=== PATIENT | male | born 1950 | race Caucasian/White ===

== ENCOUNTER 2016-10-04 09:14 | Emergency (ER) | payer OTHER ==
[~2016-10-04] VITALS: Ht 175.3 cm; Wt 96.0 kg
[~2016-10-04 09:14] MED LIST: ALBU1AER9 INH; ALBU1NEB10 INH; ASPI81TA21 PO; ATOR-26 PO; BUDE180I INH; CARV12.5 PO; CYCL10TA6 PO; GLIP10TA10 PO; HYDR5TAB27 PO; INSU1INJ7 SC; INSUMIS14; ISOS30TA3 PO; LEVO-366 PO; LORA-741 PO; LOSA1TAB38 PO; METF1000 PO; NIFE1TAB55 PO; NITR0.4S UT; PANT1TAB48 PO; SERT-234 PO; TRIA0.1C20 TOP
[2016-10-04 09:20] VITALS: TEMP 36.4; O2SAT 94; Ht 175.3 cm; Wt 96.0 kg
[2016-10-04] MEDS ORDERED: ALBINS/ INH (09:43)
[2016-10-04] MEDS ORDERED: VNTHFA/IN INH (09:43)
[2016-10-04] MEDS ORDERED: INSDGI SC (09:43)
[2016-10-04] MEDS ORDERED: SODIUM CHLORIDE 0.9% 1000ML 1,000 ML IV ONE (09:45)
--- NOTE | 2016-10-04 09:47 | EMERGENCY ROOM VISIT NOTE ---
History First contact with patient: 09:28 Chief Complaint: SYNCOPE Stated Complaint: SYNCOPE Nursing Triage Summary: Pt presents to room A02 via ALS. Pt color pale upon arrival. Pt was at a garage getting his oil changed when he began to feel dizzy and "not right." pt reports he then sat on a step. Per reports pt then had a syncopal episode and hit his head - lac noted to right head. right knee displays abrasion. Pt reported he thought maybe his blood sugar was low - pt recieved juice at garage and pre hospital bsg 159. medic reports inital bp was 83/56. Pt alert and oriented x 4 able to follow all commands upon arrival. pt reports he had his blood pressure medication adjusted approx 2 weeks ago "because my blood pressure was high and my feet were swollen." History of Present Illness The patient is a 66 year old male with history of type 2 diabetes, previous intracranial aneurysm status post repair, coronary artery disease with 3 stents who presents to the Emergency Room with complaints of syncopal event. He reports earlier today he was at a garage as his 's car's oil was getting changed. He was standing for a while, felt light headed, then sat on a stool, then and passed out and fell and hit his head on the right side. He does not remember any further events since then. EMS was called by the car garage. He thought his blood sugar might be low but his blood sugar was found to be 153. He reported feeling dizzy, that the room was spinning. His blood pressure was found to be 83/56. He reports in last 2 weeks his blood pressure medications had been changed he was unsure to what it was and what it was before now, because his blood pressure was elevated and his legs were swollen. (On review, as below, his medication was changed from furosemide 20 mg every 14 days, to a regime of Imdur 15 mg and Hydrochlorothiazide 25 mg.) Review of Systems See HPI for pertinent positives & negatives. A total of 10 systems reviewed and were otherwise negative. Past Medical/Surgical History Medical Problems: (1) Acute myocardial infarction (2) Benign hypertension (3) BPH (benign prostatic hypertrophy) (4) CAD (coronary artery disease) (5) COPD (chronic obstructive pulmonary disease) (6) Coronary artery disease, occlusive (7) DM type 2 (diabetes mellitus, type 2) (8) Dyslipidemia (9) GERD (gastroesophageal reflux disease) (10) H/O subarachnoid hemorrhage (11) History of Schatzki's ring (12) Lumbago (13) Mood disorder (14) Sensorineural hearing loss of both ears (15) Tobacco use disorder (16) Tobacco user Surgical Problems: (1) H/O inguinal hernia repair (2) History of carpal tunnel surgery (3) S p EGD (4) S/P cardiac cath (5) S/p laser surgery of eye (6) Stented coronary artery Family History FH: abdominal aortic aneurysm FATHER FH: dementia MOTHER Social History Smoking Status: Never Smoker Alcohol Use: none Marital Status: Housing Status: lives with family Occupation Status: retired Current/Historical Medications Scheduled Aspirin Enteric Coated (Ecotrin Or Generic), 81 MG PO DAILY Atorvastatin (Lipitor), 80 MG PO DAILY Budesonide (Inhalation) (Pulmicort Flexhaler), 1 PUFFS INH BID Carvedilol (Coreg), 12.5 MG PO BID Glipizide (Glipizide), 20 MG PO BID Insulin Glargine (Lantus), 48 UNITS SC HS Isosorbide Mononitrate Ext Rel (Imdur Ext Rel), 15 MG PO DAILY Losartan Potassium (Cozaar), 100 MG PO DAILY Metformin Hcl (Glucophage), 1,000 MG PO BIDM Nifedipine (Nifedipine Er), 60 MG PO DAILY Nitroglycerin (Nitrostat), 0.4 MG UT PRN Pantoprazole (Protonix), 40 MG PO BID Scheduled PRN Albuterol Hfa (Ventolin Hfa), 2-4 PUFFS INH Q4H PRN for SOB/Wheezing Albuterol Sulf (Proventil 0.083% 2.5MG/3ML), 2.5 MG INH Q4H PRN for Shortness of Breath Lorazepam (Ativan), 0.5 MG PO BID PRN for Anxiety/Insomnia Allergies Coded Allergies: Budesonide (Verified Allergy, Intermediate, RASH, 12/20/13) Formoterol (Verified Allergy, Intermediate, RASH, 12/20/13) Penicillins (Verified Allergy, Intermediate, 12/20/13) Simvastatin (Verified Allergy, Intermediate, RASH, 12/20/13) Lisinopril (Verified Allergy, Unknown, ., 12/20/13) Physical Exam Vital Signs Date Time Temp Pulse Resp B/P Pulse Ox O2 Delivery O2 Flow Rate FiO2 10/04/16 11:44 77 18 122/73 96 Room Air 10/04/16 10:30 73 18 127/74 97 Room Air 10/04/16 10:05 74 122/69 85 126/98 83 121/66 10/04/16 09:28 77 18 116/76 97 Room Air 10/04/16 09:21 74 10/04/16 09:20 36.4 75 18 117/75 95 Room Air 10/04/16 09:20 94 Room Air Physical Exam GENERAL: Awake, alert, well appearing, no distress HENT: Normocephalic, atraumatic. TM's normal. Oropharynx unremarkable. EYES: PERRL. Normal conjunctiva. Sclera non-icteric. Fundi normal. EOMI NECK: Supple. No nuchal rigidity. FROM. RESPIRATORY: CTA CARDIAC: RRR. Extremities warm and well perfused. ABDOMEN: Soft, non distended. No tenderness to palpation. No rebound or guarding. No masses. MUSCULOSKELETAL: Unremarkable. EXTREMITIES: No edema. No discoloration. Gross motor strength 5/5 bilaterally. NEURO: Normal sensorium. No sensory or motor deficits noted. Gait normal. Speech normal. Cranial nerves two through 12 intact. No pronator drift. Negative Romberg. Normal rapid alternating movements. SKIN: No rash or jaundice noted. LYMPH: No adenopathy. Medical Decision & Procedures Laboratory Results 10/04/16 09:45 Red Blood Count 4.29, Mean Corpuscular Volume 86.9, Mean Corpuscular Hemoglobin 28.9, Mean Corpuscular Hemoglobin Concent 33.2, Mean Platelet Volume 9.6, Neutrophils (%) (Auto) 63.2, Lymphocytes (%) (Auto) 20.2, Monocytes (%) (Auto) 10.0, Eosinophils (%) (Auto) 5.4, Basophils (%) (Auto) 0.9, Neutrophils # (Auto ) 4.21, Lymphocytes # (Auto) 1.35, Monocytes # (Auto) 0.67, Eosinophils # (Auto ) 0.36, Basophils # (Auto) 0.06 10/04/16 09:45 Test 10/04/16 09:45 10/04/16 11:21 White Blood Count 6.67 K/uL (4.8-10.8) Red Blood Count 4.29 M/uL (4.7-6.1) Hemoglobin 12.4 g/dL (14.0-18.0) Hematocrit 37.3 % (42-52) Mean Corpuscular Volume 86.9 fL (80-100) Mean Corpuscular Hemoglobin 28.9 pg (25-34) Mean Corpuscular Hemoglobin Concent 33.2 g/dl (32-36) Platelet Count 190 K/uL (130-400) Mean Platelet Volume 9.6 fL (7.4-10.4) Neutrophils (%) (Auto) 63.2 % Lymphocytes (%) (Auto) 20.2 % Monocytes (%) (Auto) 10.0 % Eosinophils (%) (Auto) 5.4 % Basophils (%) (Auto) 0.9 % Neutrophils # (Auto) 4.21 K/uL (1.4-6.5) Lymphocytes # (Auto) 1.35 K/uL (1.2-3.4) Monocytes # (Auto) 0.67 K/uL (0.11-0.59) Eosinophils # (Auto) 0.36 K/uL (0-0.5) Basophils # (Auto) 0.06 K/uL (0-0.2) RDW Standard Deviation 44.9 fL (36.4-46.3) RDW Coefficient of Variation 14.2 % (11.5-14.5) Immature Granulocyte % (Auto) 0.3 % Immature Granulocyte # (Auto) 0.02 K/uL (0.00-0.02) Prothrombin Time 11.4 SECONDS (9.0-12.0) Prothromb Time International Ratio 1.1 (0.9-1.1) Activated Partial Thromboplast Time 21.7 SECONDS (21.0-31.0) Partial Thromboplastin Ratio 0.8 Anion Gap 13.0 mmol/L (3-11) Est Creatinine Clear Calc Drug Dose 80.8 ml/min Estimated GFR () 89.2 Estimated GFR (Non- 77.0 BUN/Creatinine Ratio 15.8 (10-20) Calcium Level 8.9 mg/dl (8.5-10.1) Total Bilirubin 0.5 mg/dl (0.2-1) Aspartate Amino Transf (AST/SGOT) 20 U/L (15-37) Alanine Aminotransferase (ALT/SGPT) 34 U/L (12-78) Alkaline Phosphatase 73 U/L (45-117) Troponin I < 0.015 ng/ml (0-0.045) Total Protein 6.8 gm/dl (6.4-8.2) Albumin 3.6 gm/dl (3.4-5.0) Globulin 3.2 gm/dl (2.5-4.0) Albumin/Globulin Ratio 1.1 (0.9-2) Bedside Troponin I 0.000 ng/ml (0-0.045) Medications Administered Medications (Trade) Dose Ordered Sig/Nagi Route Start Time Stop Time Status Last Admin Dose Admin Sodium Chloride (Nss 1000ml) 1,000 ml @ 999 mls/hr Q1H1M ONCE IV 10/04/16 09:45 10/04/16 10:45 DC 10/04/16 10:08 999 MLS/HR ECG Indication: syncope Rate (beats per minute): 76 Rhythm: normal sinus Findings: other (left atrial enlargement) Change: no significant change ED Course 9:30: I evaluated the patient in room A2. A complete history and physical examination were performed. 9:40: I ordered a CBC, CMP, cardiac enzymes, EKG, CT head, POC troponin, orthostatic vital signs, and a 1 L bolus of normal saline. 10:17: I informed the patient and his family that his CT head scan was normal. His blood pressure also improved to 121/84. I asked the case management department to find a copy of his office records with Kana Somers,to figure out what blood pressure medications had been changed. 10:25: Records were obtained from his cardiology visit with Kana Somers. It seems that the patient was taking 20 mg of first night every 14 days as of September 15, and this was changed to hydrochlorothiazide 25 mg per day. He had been on Imdur 15 mg per day and this was increased to 30 mg per day. He returned on September 22 and had reported that he was getting chest pain from right to left across his chest and so had stopped his into her back to 15 mg per day, with resolution of his symptoms. His medications were continued at that time. 10:38: Ambulatory trial was ordered. The patient tolerated this well. His wrist x-ray was normal, and I informed him of this. Repeat Troponin was then obtained. 11:40: He was discharged home in good condition. His had found appointment with Kana Somers for today. He was advised follow-up with him and his PCP as well. The patient and his family agreed with this and he was discharged home. Medical Decision This is a 66-year-old male with CAD, hypertension who presents with syncopal event while on a stool earlier today. Differential includes orthostatic hypotension, hypoglycemia, anemia, stroke, CO, electrolyte abnormality, mechanical fall. He had an IV placed and labs drawn. He denies any electrolyte abnormalities. He had a CT of the head which was normal. He was not orthostatic at this time, though this was after he had received about 1.5 L of fluids. His blood glucose was normal, and on lab results it was 277. He was not anemic. His point of care troponins were negative 2. He ambulated well independently. It seems that this was likely either due to his blood pressure medications as there have been recent changes, though may have been due to his anti-glycemic agents, as he is on glipizide 40mg BID. He was feeling well after ambulating around the ED and he was discharged home in good condition. He agreed with following up with his primary care provider and his software development test engineer. Impression Primary Impression: Syncope Departure Information Dispostion Home / Self-Care Condition GOOD Referrals Eddie Ruffin M.D. (PCP) Patient Instructions [facility] Additional Instructions Follow-up with her software development test engineer and your primary care physician within the week. If you do feel the symptoms recur again including dizziness fall headache or any chest pain or shortness of breath please return to the ED. Make sure to stay hydrated, and also check your blood sugars frequently to make sure they are not too low or too high. Resident Tracking Resident Involvement: Resident Care Provided Care Provided: Adult ED
--- NOTE | 2016-10-04 10:06 | DIAGNOSTIC IMAGING REPORT ---
HEAD CT NONCONTRAST CT DOSE: 537.48 mGy.cm HISTORY: Trauma. Change in mental status. HEAD INJURY, SYNCOPAL EVENT TECHNIQUE: Multiaxial CT images of the head were performed without the use of intravenous contrast. Comparison: 05/01/2008 Findings: The paranasal sinuses and mastoid air cells are clear. Prior suboccipital craniotomy. Moderate chronic small vessel change of periventricular deep white matter regions. No acute intracranial abnormality. No evidence for acute intracranial hemorrhage. Impression: Chronic and postoperative change. No acute process. Electronically signed by: Kana Andersen M.D. 10/04/2016 10:05 AM Dictated Date/Time: 10/04/2016 10:03 AM
[2016-10-04 10:07] LABS: BASO % 0.9 %; BASO ABS # 0.06 K/uL (0-0.2); COMPLETE YES; EOS % 5.4 %; HEMATOCRIT 37.3 % (42-52); IG% 0.3 %; LYMPH % 20.2 %; LYMPH ABS # 1.35 K/uL (1.2-3.4); MEAN CELL VOLUME 86.9 fL (80-100); MEAN CORPUSCULAR HEMOGLOBIN 28.9 pg (25-34); MEAN CORPUSCULAR HGB CONC 33.2 g/dl (32-36); MEAN PLATELET VOLUME 9.6 fL (7.4-10.4); NEUT % 63.2 %; PLATELET COUNT 190 K/uL (130-400); RED BLOOD COUNT 4.29 M/uL (4.7-6.1); WHITE BLOOD COUNT 6.67 K/uL (4.8-10.8)
[2016-10-04 10:15] LABS: INR 1.1 (0.9-1.1); PARTIAL THROMBOPLASTIN RATIO 0.8; PROTHROMBIN TIME (PATIENT) 11.4 SECONDS (9.0-12.0)
--- NOTE | 2016-10-04 10:19 | DIAGNOSTIC IMAGING REPORT ---
CHEST ONE VIEW PORTABLE CLINICAL HISTORY: COPD, SYNCOPAL EVENT dyspnea COMPARISON STUDY: 06/24/2015 FINDINGS: The bones soft tissues and hemidiaphragms are normal. The cardiomediastinal silhouette is normal. The lungs are clear. The pulmonary vasculature is normal. IMPRESSION: Negative chest. Electronically signed by: Kana Andersen M.D. 10/04/2016 10:18 AM Dictated Date/Time: 10/04/2016 10:18 AM
[2016-10-04 10:24] LABS: ALT/SGPT 34 U/L (12-78); AST/SGOT 20 U/L (15-37); BLOOD UREA NITROGEN 16 mg/dl (7-18); BUN/CREATININE RATIO 15.8 (10-20); CALCIUM 8.9 mg/dl (8.5-10.1); CARBON DIOXIDE 24 mmol/L (21-32); CHLORIDE 101 mmol/L (98-107); GLUCOSE 227 mg/dl (70-99); POTASSIUM 3.8 mmol/L (3.5-5.1); SODIUM 138 mmol/L (136-145)
[2016-10-04 10:30] LABS: ALB/GLOB RATIO 1.1 (0.9-2); ALKALINE PHOSPHATASE 73 U/L (45-117)
--- NOTE | 2016-10-04 10:49 | EMERGENCY ROOM VISIT NOTE ---
ED Visit Note First contact with patient: 09:28 66-year-old male with syncope earlier today was fully evaluated by Dr. Ferguson Please see her note. I also independently evaluated the patient. Multiple labs and EKG were obtained. Orthostatic vital signs and ambulatory trial were also evaluated. The patient was felt safe to return home.
--- NOTE | 2016-10-04 11:09 | DIAGNOSTIC IMAGING REPORT ---
LEFT WRIST MIN 3 VIEWS ROUTINE CLINICAL HISTORY: pain pain COMPARISON: None. DISCUSSION: Mild degenerative change. No acute bony abnormality. Cortical margins are intact. There is no evidence for soft tissue swelling. IMPRESSION: Mild degenerative change. No acute process. Electronically signed by: Kana Andersen M.D. 10/04/2016 11:08 AM Dictated Date/Time: 10/04/2016 11:04 AM
[2016-10-04 11:44] VITALS: BP 122/73; PULSE 77; O2SAT 96
== END 2016-10-04 12:08 | disposition home or self-care (01) ==
LOC: EDBD 09:14 → C.EDA 09:15
DX: R55 Syncope and collapse (principal); E11.9 Type 2 diabetes mellitus without complications; I25.10 Atherosclerotic heart disease of native coronary artery without angina pectoris; Z95.5 Presence of coronary angioplasty implant and graft; I10 Essential (primary) hypertension; K21.9 Gastro-esophageal reflux disease without esophagitis; Z79.82 Long term (current) use of aspirin; Z79.4 Long term (current) use of insulin; Z79.899 Other long term (current) drug therapy

== ENCOUNTER 2021-02-01 20:12 | Observation (INO) ==
[2021-02-01] MEDS ORDERED: LORazepam 1 MG/2 ML VIAL IV STA (20:40)
[2021-02-01] MEDS ORDERED: ONDANSETRON INJ 2 MG/ML 2 ML VIAL IV STA (20:40)
[2021-02-01] MEDS ORDERED: SODIUM CHLORIDE 0.9% 500 ML IV SCH (20:45)
[2021-02-01] MEDS ORDERED: SODIUM CHLORIDE 0.9% 1000ML 1,000 ML IV SCH (20:45)
[2021-02-01 21:04] LABS: Basophils # (auto) 0.01 K/uL (0-0.2); Basophils % (auto) 0.1 %; Eosinophils # (auto) 0.23 K/uL (0-0.5); Eosinophils % (auto) 3.3 %; Hematocrit (blood only) 37.1 % (42-52); Hemoglobin 12.4 g/dL (14.0-18.0); Immature Granulocytes # (auto) 0.02 K/uL (0.00-0.02); Immature Granulocytes % (auto) 0.3 %; Lymphocytes # (auto) 0.42 K/uL (1.2-3.4); Lymphocytes % (auto) 6.1 %; Mean Corpuscular Hemoglobin 31.2 pg (25-34); Mean Corpuscular Hgb Conc 33.4 g/dL (32-36); Mean Corpuscular Volume 93.2 fL (80-100); Mean Platelet Volume 9.6 fL (7.4-10.4); Monocytes # (auto) 0.74 K/uL (0.11-0.59); Monocytes % (auto) 10.7 %; Neutrophils # (auto) 5.51 K/uL (1.4-6.5); Neutrophils % (auto) 79.5 %; Platelet Count 164 K/uL (130-400); RDW Coefficient of Variation 14.2 % (11.5-14.5); RDW Standard Deviation 48.2 fL (36.4-46.3); Red Blood Count 3.98 M/uL (4.7-6.1); White Blood Count 6.93 K/uL (4.8-10.8)
[2021-02-01 21:10] LABS: iSTAT Creatinine 1.3 mg/dl (0.6-1.3); iSTAT Hemoglobin 12.6 g/dl (14.0-18.0); iSTAT Ionized Calcium 1.18 mmol/l (1.12-1.32); iSTAT Potassium 3.8 mmol/L (3.3-5.0)
[2021-02-01 21:25] LABS: Alanine Aminotransferase 31 U/L (12-78); Albumin Level 3.3 gm/dl (3.4-5.0); Aspartate Aminotransferase 26 U/L (15-37); BUN Creatinine Ratio 22.5 (10-20); Blood Urea Nitrogen 28 mg/dl (7-18); Calcium 8.6 mg/dl (8.5-10.1); Carbon Dioxide 23 mmol/L (21-32); Chloride 101 mmol/L (98-107); Creatinine Clr Calc Pharmacy 60.5 ml/min; Est GFR (African American) 65.6 ml/min; Est GFR (Non-African American) 56.6 ml/min; Glucose 102 mg/dl (70-99); Sodium 132 mmol/L (136-145)
[2021-02-01 21:28] LABS: Alkaline Phosphatase 60 U/L (45-117); Bilirubin,Total 0.5 mg/dl (0.2-1); Globulin 3.5 gm/dl (2.5-4.0); Total Protein 6.8 gm/dl (6.4-8.2)
[2021-02-01] MEDS ORDERED: OPTIRAY 320 125ml IV ONE (21:49)
[2021-02-02 00:15] LABS: Magnesium 1.3 mg/dl (1.8-2.4)
--- NOTE | 2021-02-02 00:47 | History & Physical Report ---
Date of Service February 02, 2021 Assessment & Plan (1) Dizziness: Possible orthostasis secondary to mild clinical dehydration from acute gastroenteritis rule out C. difficile Rule out UTI chronic diastolic heart failure (EF 60 to 64%, TTE 2018), patient on the dry side hx CAD status post stent, hx PVD HTN, BP slight elevated hyperlipidemia on statin Rx, hx cerebellar hemorrhage status post surgery (2007) DM2 insulin requiring, well-controlled as of recent hemoglobin A1c of 6.07 November 2020 COPD, past tobacco abuse, pulmonary status at baseline chronic hyponatremia chronic anemia, hemoglobin at baseline past tobacco abuse Medical telemetry Check orthostatic vitals IVF Stool C. difficile Facilitate home BP meds Basal insulin adjusted for clear liquid diet for now, ISS BG goal 1 10-1 40, carb count coverage PT OT eval given fall risk DVT prophylaxis. SCDs Re: History intracranial hemorrhage Full code Text document was generated using [employer] voice recognition software. It may contain grammatical or spelling errors. Kindly contact undersigned for clarification of any documentation item in question. History of Present Illness Chief Complaint: Dizziness, hard time standing up, falling over Primary Care Provider: Eddie Ruffin MD History obtained from patient and records. Medical history significant for chronic diastolic heart failure (EF 60 to 64%, TTE 2019), CAD status post stent, HTN, hyperlipidemia, PVD, history cerebellar hemorrhage status post surgery (2007), hypertension, hyperlipidemia, DM2 insulin requiring, COPD, chronic hyponatremia, chronic anemia (baseline hemoglobin 12- 13), BPH, past tobacco/alcohol abuse as per records. Last confinement June 2015 for COPD exacerbation. 2 weeks history of achy abdominal pain. No fever, no chills. 2 days ago, patient noted dizziness symptoms described as lightheadedness, not spinning. No headache. Subsequent watery diarrhea noted. Transient chest pain. Possible sick contacts at home. No cough symptoms. Hard time standing up from generalized weakness. At the ER, patient fell to the ground on his way to the bathroom. 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 Verified 02/01/21 21:40 Home Medications Medication Instructions Recorded Confirmed Type albuterol sulfate [Ventolin HFA] 2 puff INHALATION Q4H PRN 02/09/19 02/01/21 History atorvastatin 80 mg PO QAM 02/09/19 02/01/21 History budesonide [Pulmicort Flexhaler] 2 inh INHALATION BID 02/09/19 02/01/21 History carvedilol 18.75 mg PO BID 02/09/19 02/01/21 History glipizide 10 mg PO BID 02/09/19 02/01/21 History insulin glargine [Lantus U-100 55 unit SUBCUT HS 02/09/19 02/01/21 History Insulin] isosorbide mononitrate 30 mg PO QAM 02/09/19 02/01/21 History lorazepam 1 mg PO BID PRN 02/09/19 02/01/21 History metformin 1,000 mg PO BIDM 02/09/19 02/01/21 History nitroglycerin 0.4 mg SUBLINGUAL UD PRN 02/09/19 02/01/21 History pantoprazole 40 mg PO BID 02/09/19 02/01/21 History aspirin 81 mg PO BID 03/08/19 02/01/21 History hydrocodone-acetaminophen 1 tab PO Q6 PRN 03/08/19 02/01/21 History triamcinolone acetonide 0.1 % 1 appln TOP BID PRN gm 08/30/19 02/01/21 History topical cream losartan 100 mg tablet 50 mg PO QAM tab 09/25/20 02/01/21 History mecobalamin (vitamin B12) 1,000 1,000 mcg PO DAILY 09/25/20 02/01/21 History mcg chewable tablet acetaminophen [Tylenol Extra 1,000 mg PO Q8 PRN MDD 6 tabs 02/01/21 02/01/21 History Strength] hydroxyzine HCl 50 mg PO Q6 PRN 02/01/21 02/01/21 History ipratropium-albuterol 3 ml INHALATION Q4H PRN 02/01/21 02/01/21 History magnesium oxide 400 mg PO BID 02/01/21 02/01/21 History naproxen 500 mg PO BID PRN 02/01/21 02/01/21 History polyethylene glycol 3350 [Miralax] 17 g PO UD 02/01/21 02/01/21 History sennosides 8.6 mg PO DAILY PRN 02/01/21 02/01/21 History sertraline 100 mg PO DAILY 02/01/21 02/01/21 History Past Med/Surg History Medical History (Updated 02/02/21 @ 01:47 by Rex Waters MD) BPH (benign prostatic hypertrophy) CAD (coronary artery disease) COPD (chronic obstructive pulmonary disease) Coronary artery disease, occlusive "s/p stent" DM type 2 (diabetes mellitus, type 2) GERD (gastroesophageal reflux disease) H/O subarachnoid hemorrhage Lumbago Mood disorder Sensorineural hearing loss of both ears Tobacco use disorder Surgical History H/O inguinal hernia repair History of carpal tunnel surgery S/P cardiac cath Stented coronary artery Family History Other Family history non-contributory Social History Smoking Status: Former smoker Tobacco Type: Cigarettes Number of Years Since Quit: 31; Preferred Language: [place] Feels Safe at Home: Yes Review of Systems Review of Systems: As per HPI, all 10 systems reviewed, all other ROS negative Physical Exam Physical Exam: GENERAL: Slightly uncomfortable, slightly hard of hearing, no respiratory distress SKIN: Pallor, warm HEENT: Pale palpebral conjunctivae, no ptosis, dry buccal mucosa NECK : Supple, short neck, no tenderness CHEST : Decreased breath sounds, no tenderness HEART : RRR, no obvious murmurs ABDOMEN: Some distention, nontender EXTREMITIES : No LE swelling/tenderness, no other conspicuous deformities noted NEUROLOGIC : Coherent, no facial asymmetry, mild hearing impairment, no other gross focality Results & Data Results & Data ([facility]) Vital Signs (Past 12 Hours) Vital Signs Temp Pulse Pulse Resp BP BP Pulse Ox 02/01/21 22:40 84 24 164/74 H 96 02/01/21 22:00 75 21 132/65 93 02/01/21 21:30 72 23 113/61 94 02/01/21 21:26 72 22 125/61 94 02/01/21 21:24 74 18 125/61 96 02/01/21 20:28 79 18 113/75 96 02/01/21 20:15 36.5 C 82 18 116/71 94 02/01/21 19:14 78 24 113/75 Laboratory Results Laboratory Results WBC 6.93 K/uL (4.8-10.8) 02/01/21 20:46 RBC 3.98 M/uL (4.7-6.1) L 02/01/21 20:46 Hgb 12.4 g/dL (14.0-18.0) L 02/01/21 20:46 POC Hgb 12.6 g/dl (14.0-18.0) L 02/01/21 20:57 Hct 37.1 % (42-52) L 02/01/21 20:46 POC Hct 37 % (42-52) L 02/01/21 20:57 MCV 93.2 fL (80-100) 02/01/21 20:46 MCH 31.2 pg (25-34) 02/01/21 20:46 MCHC 33.4 g/dL (32-36) 02/01/21 20:46 RDW Std Deviation 48.2 fL (36.4-46.3) H 02/01/21 20:46 RDW Coeff of Alesia 14.2 % (11.5-14.5) 02/01/21 20:46 Plt Count 164 K/uL (130-400) 02/01/21 20:46 MPV 9.6 fL (7.4-10.4) 02/01/21 20:46 Immature Gran % (Auto) 0.3 % 02/01/21 20:46 Neut % (Auto) 79.5 % 02/01/21 20:46 Lymph % (Auto) 6.1 % 02/01/21 20:46 Miner % (Auto) 10.7 % 02/01/21 20:46 Eos % (Auto) 3.3 % 02/01/21 20:46 Baso % (Auto) 0.1 % 02/01/21 20:46 Neut # (Auto) 5.51 K/uL (1.4-6.5) 02/01/21 20:46 Lymph # (Auto) 0.42 K/uL (1.2-3.4) L 02/01/21 20:46 Miner # (Auto) 0.74 K/uL (0.11-0.59) H 02/01/21 20:46 Eos # (Auto) 0.23 K/uL (0-0.5) 02/01/21 20:46 Baso # (Auto) 0.01 K/uL (0-0.2) 02/01/21 20:46 Immature Gran # (Auto) 0.02 K/uL (0.00-0.02) 02/01/21 20:46 POC Sodium 133 mmol/L (135-144) L 02/01/21 20:57 Sodium 132 mmol/L (136-145) L 02/01/21 20:46 POC Potassium 3.8 mmol/L (3.3-5.0) 02/01/21 20:57 Potassium 4.0 mmol/L (3.5-5.1) 02/01/21 20:46 POC Chloride 98 mmol/L (101-112) L 02/01/21 20:57 Chloride 101 mmol/L (98-107) 02/01/21 20:46 Carbon Dioxide 23 mmol/L (21-32) 02/01/21 20:46 POC Total CO2 20 mmol/L (24-31) L 02/01/21 20:57 Anion Gap 8.0 (3-11) 02/01/21 20:46 POC Anion Gap 20.0 mmol/L (16-25) 02/01/21 20:57 POC BUN 26 mg/dl (7-18) H 02/01/21 20:57 BUN 28 mg/dl (7-18) H 02/01/21 20:46 Creatinine 1.26 mg/dl (0.6-1.4) 02/01/21 20:46 POC Creatinine 1.3 mg/dl (0.6-1.3) 02/01/21 20:57 Est Cr Clr Drug Dosing 60.5 ml/min 02/01/21 20:46 Est GFR ( Amer) 65.6 ml/min 02/01/21 20:46 Est GFR (Non-Af Amer) 56.6 ml/min 02/01/21 20:46 BUN/Creatinine Ratio 22.5 (10-20) H 02/01/21 20:46 Glucose 102 mg/dl (70-99) H 02/01/21 20:46 POC Glucose 108 mg/dl (70-99) H 02/01/21 20:37 POC Glucose (other) 105 mg/dl (70-99) H 02/01/21 20:57 Calcium 8.6 mg/dl (8.5-10.1) 02/01/21 20:46 POC Ioniz Calcium Amando 1.18 mmol/l (1.12-1.32) 02/01/21 20:57 Magnesium 1.3 mg/dl (1.8-2.4) L 02/01/21 20:46 Total Bilirubin 0.5 mg/dl (0.2-1) 02/01/21 20:46 AST 26 U/L (15-37) 02/01/21 20:46 ALT 31 U/L (12-78) 02/01/21 20:46 Alkaline Phosphatase 60 U/L (45-117) 02/01/21 20:46 Total Protein 6.8 gm/dl (6.4-8.2) 02/01/21 20:46 Albumin 3.3 gm/dl (3.4-5.0) L 02/01/21 20:46 Globulin 3.5 gm/dl (2.5-4.0) 02/01/21 20:46 Albumin/Globulin Ratio 1.0 (0.9-2) 02/01/21 20:46 COVID-19 Eval Order Covid19 at [facility] 02/02/21 00:[address] HEAD: Comparison: 06/07/2020. No ICH, mass effect or edema. No evidence of acute cortical stroke. Periventricular small vessel ischemic change. Mild generalized brain atrophy. Encephalomalacia of the left cerebellar hemisphere with status post occipital craniotomy, likely postsurgical. This is stable. Visualized sinuses and mastoid air cells are clear. CTA HEAD: Minimal calcified atherosclerotic disease involving the bilateral vertebral arteries and cavernous portion of the internal carotid arteries. Otherwise normal CT angiogram of the brain with no stenosis, occlusion or aneurysm mild dilatation. CT abdomen pelvis initial read: Bilateral lower lobe atelectasis with subpleural interstitial disease or fibrosis. No pleural effusion or pneumothorax. Normal cardiac size with coronary artery calcifications. Diffuse fatty liver. Unremarkable gallbladder and biliary system. Normal spleen, pancreas and bilateral adrenal glands. Bilateral perinephric stranding. Small right middle renal pole cyst measuring 6 mm, otherwise incompletely characterized due to small size. Left mid lower pole cyst measuring 1.9 cm. Calcified atherosclerotic disease of aorta. Decompressed stomach with no hiatal hernia. The small bowel is nonspecific. There is fluid within the right colon, cannot exclude nonspecific bowel obstruction versus enteritis. Diverticulosis of the colon with no signs of diverticulitis. Appendix is not seen with no inflammation in the region of the cecum. Contrast seen within the urinary bladder. Mild prostate enlargement. No free fluid. Degenerative disease of the spine. Chest x-ray as per my interpretation atelectasis EKG as per my interpretation : Rate 75, NSR, LAD, LAFB, inferior infarct, T wave abnormalities lateral leads
[2021-02-02] MEDS ORDERED: MAGNESIUM SULFATE / D5W 1 GM/100 ML BAG IV STA (00:48)
[2021-02-02] MEDS ORDERED: carvediloL 3.125 MG TAB PO STA ×2 (00:48→01:06)
--- NOTE | 2021-02-02 00:54 | Emergency Department Note ---
History of Present Illness General Chief complaint: Dizziness Stated complaint: DIZZY - THROWING UP Time Seen by Provider: 02/01/21 20:38 Source: patient, family (Daughter at the bedside) and RN notes reviewed Mode of arrival: ambulatory Limitations: no limitations History of Present Illness Provider complaint: Dizziness, vomiting, unable to walk in a straight line This patient is a 70-year-old male who presents emergency department with complaints of dizziness, vertigo and falling to the side when attempting to walk in a straight line. He states in 2007 he had an intracranial hemorrhage and had surgery with Dr. Aparicio. He and his family are always concerned that he may have developed another bleed. Patient states he was suffering from a GI illness yesterday with vomiting and diarrhea as did his . He may have had a low- grade temperature. He denies any chest pain, shortness of breath, neck pain or weakness in the extremities. He denies any falls with closed head injury. Patient is not on any anticoagulation. Home Medications Medication Instructions Recorded Confirmed Type albuterol sulfate [Ventolin HFA] 2 puff INHALATION Q4H PRN 02/09/19 02/01/21 History atorvastatin 80 mg PO QAM 02/09/19 02/01/21 History budesonide [Pulmicort Flexhaler] 2 inh INHALATION BID 02/09/19 02/01/21 History carvedilol 18.75 mg PO BID 02/09/19 02/01/21 History glipizide 10 mg PO BID 02/09/19 02/01/21 History insulin glargine [Lantus U-100 55 unit SUBCUT HS 02/09/19 02/01/21 History Insulin] isosorbide mononitrate 30 mg PO QAM 02/09/19 02/01/21 History lorazepam 1 mg PO BID PRN 02/09/19 02/01/21 History metformin 1,000 mg PO BIDM 02/09/19 02/01/21 History nitroglycerin 0.4 mg SUBLINGUAL UD PRN 02/09/19 02/01/21 History pantoprazole 40 mg PO BID 02/09/19 02/01/21 History aspirin 81 mg PO BID 03/08/19 02/01/21 History hydrocodone-acetaminophen 1 tab PO Q6 PRN 03/08/19 02/01/21 History triamcinolone acetonide 0.1 % 1 appln TOP BID PRN gm 08/30/19 02/01/21 History topical cream losartan 100 mg tablet 50 mg PO QAM tab 09/25/20 02/01/21 History mecobalamin (vitamin B12) 1,000 1,000 mcg PO DAILY 09/25/20 02/01/21 History mcg chewable tablet acetaminophen [Tylenol Extra 1,000 mg PO Q8 PRN MDD 6 tabs 02/01/21 02/01/21 History Strength] hydroxyzine HCl 50 mg PO Q6 PRN 02/01/21 02/01/21 History ipratropium-albuterol 3 ml INHALATION Q4H PRN 02/01/21 02/01/21 History magnesium oxide 400 mg PO BID 02/01/21 02/01/21 History naproxen 500 mg PO BID PRN 02/01/21 02/01/21 History polyethylene glycol 3350 [Miralax] 17 g PO UD 02/01/21 02/01/21 History sennosides 8.6 mg PO DAILY PRN 02/01/21 02/01/21 History sertraline 100 mg PO DAILY 02/01/21 02/01/21 History Allergies Allergy/AdvReac Type Severity Reaction Status Date / Time budesonide Allergy Intermediate RASH Verified 02/01/21 21:40 formoterol Allergy Intermediate RASH Verified 02/01/21 21:40 Penicillins Allergy Intermediate Unknown Verified 02/01/21 21:40 simvastatin Allergy Intermediate RASH Verified 02/01/21 21:40 lisinopril Allergy Unknown . Verified 02/01/21 21:40 Past Med/Surg History Medical History (Updated 02/02/21 @ 01:07 by Marcela Fairbanks MD) BPH (benign prostatic hypertrophy) CAD (coronary artery disease) COPD (chronic obstructive pulmonary disease) Coronary artery disease, occlusive "s/p stent" DM type 2 (diabetes mellitus, type 2) GERD (gastroesophageal reflux disease) H/O subarachnoid hemorrhage Lumbago Mood disorder Sensorineural hearing loss of both ears Tobacco use disorder Surgical History H/O inguinal hernia repair History of carpal tunnel surgery S/P cardiac cath Stented coronary artery Family History Other Family history non-contributory Social History Smoking Status: Former smoker Tobacco Type: Cigarettes Number of Years Since Quit: 31; Preferred Language: Frisian Feels Safe at Home: Yes Review of Systems See HPI for pertinent positives & negatives. and A total of 10 systems reviewed and were otherwise negative Physical Exam Vital Signs Vital Signs - 24 hr 02/01/21 19:14 02/01/21 20:15 02/01/21 20:28 Temperature 36.5 C Temperature Source Oral Pulse Rate 78 82 Pulse Rate [Apical] 79 Pulse Rate from SpO2 Sensor Pulse Rhythm Regular Pulse Rhythm [Apical] Regular Pulse Strength Normal Pulse Strength [Apical] Normal Respiratory Rate 24 18 18 Respiratory Effort / Characteristics Non-Labored Spontaneous Non-Labored Spontaneous Respiratory Depth Normal Normal Respiratory Pattern Regular Regular Blood Pressure 113/75 116/71 Blood Pressure [Right Arm] 113/75 Blood Pressure Mean 87 86 Blood Pressure Mean [Right Arm] 87 Blood Pressure Position Sitting Blood Pressure Position [Right Arm] Lying Pulse Oximetry 94 96 Oxygen Delivery Method Room Air Room Air Sepsis Recent Fever Within 48 Hours No Sepsis New/Unexplained Change in Mental Status N/A Sepsis Action Taken by Nursing No Action Required 02/01/21 21:24 02/01/21 21:26 02/01/21 21:30 Temperature Temperature Source Pulse Rate 74 72 72 Pulse Rate [Apical] Pulse Rate from SpO2 Sensor 73 72 Pulse Rhythm Pulse Rhythm [Apical] Pulse Strength Pulse Strength [Apical] Respiratory Rate 18 22 23 Respiratory Effort / Characteristics Respiratory Depth Respiratory Pattern Blood Pressure 125/61 125/61 113/61 Blood Pressure [Right Arm] Blood Pressure Mean 82 82 78 Blood Pressure Mean [Right Arm] Blood Pressure Position Blood Pressure Position [Right Arm] Pulse Oximetry 96 94 94 Oxygen Delivery Method Room Air Sepsis Recent Fever Within 48 Hours Sepsis New/Unexplained Change in Mental Status Sepsis Action Taken by Nursing 02/01/21 22:00 02/01/21 22:40 Temperature Temperature Source Pulse Rate 75 84 Pulse Rate [Apical] Pulse Rate from SpO2 Sensor 74 83 Pulse Rhythm Pulse Rhythm [Apical] Pulse Strength Pulse Strength [Apical] Respiratory Rate 21 24 Respiratory Effort / Characteristics Respiratory Depth Respiratory Pattern Blood Pressure 132/65 164/74 H Blood Pressure [Right Arm] Blood Pressure Mean 87 104 Blood Pressure Mean [Right Arm] Blood Pressure Position Blood Pressure Position [Right Arm] Pulse Oximetry 93 96 Oxygen Delivery Method Sepsis Recent Fever Within 48 Hours Sepsis New/Unexplained Change in Mental Status Sepsis Action Taken by Nursing Vital signs reviewed. General: Chronically ill-appearing 70-year-old male, in no significant distress. HEENT: No scleral icterus, PERRLA, neck supple. Atraumatic. No nystagmus Cardiovascular: Regular rate and rhythm, no extra sounds. Pulmonary: Clear to auscultation bilaterally, normal work of breathing. Abdomen: Soft, nontender, nondistended, positive bowel sounds. Musculoskeletal: Atraumatic, no peripheral edema. Neurologic: Patient awake alert and oriented x 3, full strength in all 4 extremities. Cranial nerves 2 through 12 grossly intact. Intact [id number], equal environment coordinator strength bilaterally. Skin: Warm, dry, no rash Course Administered Medications Discontinued Medications Sodium Chloride (Nss) 500 mls @ 999 mls/hr IV .Q31M AUDREY Stop: 02/01/21 21:15 Last Infusion: 02/01/21 22:01 Dose: 0 mls/hr Documented by: [id number] Admin: 02/01/21 21:20 Dose: 999 mls/hr Documented by: [id number] Sodium Chloride (Nss 1000ml) 1,000 mls @ 125 mls/hr IV .Q8H AUDREY Stop: 03/03/21 20:44 Last Admin: 02/01/21 21:20 Dose: 125 mls/hr Documented by: [id number] Lorazepam (Ativan) 1 mg in 2 mls @ 2 mls/min IV NOW STA Stop: 02/01/21 20:41 Last Admin: 02/01/21 21:19 Dose: 2 mls/min Documented by: [id number] Ioversol (Optiray 320 125ml) 120 ml IV ONCE ONE Stop: 02/01/21 21:50 Last Admin: 02/01/21 21:50 Dose: 120 ml Documented by: [id number] Ondansetron HCl (Ondansetron Inj 2 Mg/Ml 2 Ml Vial) 4 mg IV NOW STA Stop: 02/01/21 20:41 Last Admin: 02/01/21 21:19 Dose: 4 mg Documented by: [id number] Medical Decision Making Differential Diagnosis Benign positional vertigo, dehydration, hypovolemia, anemia, tumor, infection, hypoglycemia, electrolyte abnormalities, cardiac sources, intracerebral event, toxicologic, neurologic, as well as other pathologies. Medical Records Attestation: I reviewed the patient's medical records. Home Medications Current Medication List: was personally reviewed by me Laboratory Data Attestation: I reviewed the patient's lab results. Result diagrams: 02/01/21 20:46 02/01/21 20:46 Lab Results 02/01/21 02/01/21 02/01/21 Range/Units 20:37 20:46 20:46 WBC 6.93 (4.8-10.8) K/uL RBC 3.98 L (4.7-6.1) M/uL Hgb 12.4 L (14.0-18.0) g/dL POC Hgb (14.0-18.0) g/dl Hct 37.1 L (42-52) % POC Hct (42-52) % MCV 93.2 (80-100) fL MCH 31.2 (25-34) pg MCHC 33.4 (32-36) g/dL RDW Std Deviation 48.2 H (36.4-46.3) fL RDW Coeff of Alesia 14.2 (11.5-14.5) % Plt Count 164 (130-400) K/uL MPV 9.6 (7.4-10.4) fL Immature Gran % (Auto) 0.3 % Neut % (Auto) 79.5 % Lymph % (Auto) 6.1 % Gonzales % (Auto) 10.7 % Eos % (Auto) 3.3 % Baso % (Auto) 0.1 % Neut # (Auto) 5.51 (1.4-6.5) K/uL Lymph # (Auto) 0.42 L (1.2-3.4) K/uL Gonzales # (Auto) 0.74 H (0.11-0.59) K/uL Eos # (Auto) 0.23 (0-0.5) K/uL Baso # (Auto) 0.01 (0-0.2) K/uL Immature Gran # (Auto) 0.02 (0.00-0.02) K/uL POC Sodium (135-144) mmol/L Sodium 132 L (136-145) mmol/L POC Potassium (3.3-5.0) mmol/L Potassium 4.0 (3.5-5.1) mmol/L POC Chloride (101-112) mmol/L Chloride 101 (98-107) mmol/L Carbon Dioxide 23 (21-32) mmol/L POC Total CO2 (24-31) mmol/L Anion Gap 8.0 (3-11) POC Anion Gap (16-25) mmol/L POC BUN (7-18) mg/dl BUN 28 H (7-18) mg/dl Creatinine 1.26 (0.6-1.4) mg/dl POC Creatinine (0.6-1.3) mg/dl Est Cr Clr Drug Dosing 60.5 ml/min Est GFR ( Amer) 65.6 ml/min Est GFR (Non-Af Amer) 56.6 ml/min BUN/Creatinine Ratio 22.5 H (10-20) Glucose 102 H (70-99) mg/dl POC Glucose 108 H (70-99) mg/dl POC Glucose (other) (70-99) mg/dl Calcium 8.6 (8.5-10.1) mg/dl POC Ioniz Calcium Amando (1.12-1.32) mmol/l Magnesium 1.3 L (1.8-2.4) mg/dl Total Bilirubin 0.5 (0.2-1) mg/dl AST 26 (15-37) U/L ALT 31 (12-78) U/L Alkaline Phosphatase 60 (45-117) U/L Total Protein 6.8 (6.4-8.2) gm/dl Albumin 3.3 L (3.4-5.0) gm/dl Globulin 3.5 (2.5-4.0) gm/dl Albumin/Globulin Ratio 1.0 (0.9-2) COVID-19 Eval Order 02/01/21 02/02/21 Range/Units 20:57 00:03 WBC (4.8-10.8) K/uL RBC (4.7-6.1) M/uL Hgb (14.0-18.0) g/dL POC Hgb 12.6 L (14.0-18.0) g/dl Hct (42-52) % POC Hct 37 L (42-52) % MCV (80-100) fL MCH (25-34) pg MCHC (32-36) g/dL RDW Std Deviation (36.4-46.3) fL RDW Coeff of Alesia (11.5-14.5) % Plt Count (130-400) K/uL MPV (7.4-10.4) fL Immature Gran % (Auto) % Neut % (Auto) % Lymph % (Auto) % Gonzales % (Auto) % Eos % (Auto) % Baso % (Auto) % Neut # (Auto) (1.4-6.5) K/uL Lymph # (Auto) (1.2-3.4) K/uL Gonzales # (Auto) (0.11-0.59) K/uL Eos # (Auto) (0-0.5) K/uL Baso # (Auto) (0-0.2) K/uL Immature Gran # (Auto) (0.00-0.02) K/uL POC Sodium 133 L (135-144) mmol/L Sodium (136-145) mmol/L POC Potassium 3.8 (3.3-5.0) mmol/L Potassium (3.5-5.1) mmol/L POC Chloride 98 L (101-112) mmol/L Chloride (98-107) mmol/L Carbon Dioxide (21-32) mmol/L POC Total CO2 20 L (24-31) mmol/L Anion Gap (3-11) POC Anion Gap 20.0 (16-25) mmol/L POC BUN 26 H (7-18) mg/dl BUN (7-18) mg/dl Creatinine (0.6-1.4) mg/dl POC Creatinine 1.3 (0.6-1.3) mg/dl Est Cr Clr Drug Dosing ml/min Est GFR ( Amer) ml/min Est GFR (Non-Af Amer) ml/min BUN/Creatinine Ratio (10-20) Glucose (70-99) mg/dl POC Glucose (70-99) mg/dl POC Glucose (other) 105 H (70-99) mg/dl Calcium (8.5-10.1) mg/dl POC Ioniz Calcium Amando 1.18 (1.12-1.32) mmol/l Magnesium (1.8-2.4) mg/dl Total Bilirubin (0.2-1) mg/dl AST (15-37) U/L ALT (12-78) U/L Alkaline Phosphatase (45-117) U/L Total Protein (6.4-8.2) gm/dl Albumin (3.4-5.0) gm/dl Globulin (2.5-4.0) gm/dl Albumin/Globulin Ratio (0.9-2) COVID-19 Eval Order Covid19 at [facility] ECG Data Attestation: I personally reviewed and interpreted this ECG as follows: Indication: + vomiting and + other (Dizziness) Rhythm: + normal sinus ECG Intervals/blocks: + Normal QT-c ECG ST segments: + T-wave inversions (Lateral) ECG Findings: + Q waves (Inferior); no PACs and no PVCs Comparison ECG Date: from (06/07/20) Change: the following changes noted (Lateral T wave changes are new) Blood Pressure Blood Pressure Findings: Elevated blood pressure Blood Pressure Disposition: further management by hospitalist MDM Narrative This pt was evaluated and appeared to be in no significant distress. IV access was obtained and lab work was drawn. An order for cardiac monitoring was placed and the pt was noted to be in a NSR at 82 bpm. IVF were initiated and pt was given IV ativan 1 mg and IV zofran [address]/CTA head was performed and reveals postoperative changes but no acute findings. Lab work reveals a magnesium of 1.4, so 2gm IV magnesium were ordered. Pt was alone in the room for "5 min" per family, and he climbed out of the bottom of the bed, attempting to go to the bathroom. He lost his balance and fell onto his knees and R anterior chest. He denies CHI, neck pain. IVF were maintained, no further imaging was felt necessary. Pt was able to ambulate with minimal assist. He will be evaluated by Dr. Lara for further management. Impression & Plan Vertigo, H/O intracranial hemorrhage, Fall, Hypomagnesemia Discharge Plan Visit Data Chief Complaint: Dizziness Stated Complaint: DIZZY - THROWING UP ED Provider: Marcela Fairbanks Discharge Problem: Vertigo, H/O intracranial hemorrhage, Fall, Hypomagnesemia Forms Stand Alone Forms: My [facility] [employer] Prescriptions Prescriptions: No Action mecobalamin (vitamin B12) 1,000 mcg tablet,chewable 1,000 mcg PO DAILY RF: 0 triamcinolone acetonide 0.1 % cream 1 appln TOP BID PRN (Reason: as directed) RF: 0 atorvastatin 80 mg tablet 80 mg PO QAM RF: 0 carvedilol 12.5 mg tablet 18.75 mg PO BID RF: 0 Lantus U-100 Insulin 100 unit/mL solution 55 unit subcut HS RF: 0 glipizide 10 mg tablet 10 mg PO BID RF: 0 isosorbide mononitrate 30 mg tablet extended release 24 hr 30 mg PO QAM RF: 0 pantoprazole 40 mg tablet,delayed release (DR/EC) 40 mg PO BID RF: 0 metformin 1,000 mg tablet 1,000 mg PO BIDM RF: 0 nitroglycerin 0.4 mg tablet, sublingual 0.4 mg sublingual UD PRN (Reason: chesst pain) RF: 0 lorazepam 1 mg tablet 1 mg PO BID PRN (Reason: anxiety/insomnia) RF: 0 albuterol sulfate [Ventolin HFA] 90 mcg/actuation HFA aerosol inhaler 2 puff inhalation Q4H PRN (Reason: SOB/Wheezing) RF: 0 Pulmicort Flexhaler 180 mcg/actuation aerosol powdr breath activated 2 inh inhalation BID RF: 0 losartan 100 mg tablet 50 mg PO QAM RF: 0 hydrocodone-acetaminophen 5-325 mg tablet 1 tab PO Q6 PRN (Reason: Pain, Severe) RF: 0 aspirin 81 mg Tablet,Delayed Release (Dr/Ec) 81 mg PO BID RF: 0 sertraline 100 mg tablet 100 mg PO DAILY RF: 0 hydroxyzine HCl 50 mg tablet 50 mg PO Q6 PRN (Reason: Anxiety) RF: 0 magnesium oxide 400 mg magnesium Tablet 400 mg PO BID RF: 0 acetaminophen [Tylenol Extra Strength] 500 mg Tablet 1,000 mg PO Q8 MDD 6 tabs PRN (Reason: Pain) RF: 0 sennosides 8.6 mg Capsule 8.6 mg PO DAILY PRN (Reason: while taking narcotics) RF: 0 ipratropium-albuterol 0.5 mg-3 mg(2.5 mg base)/3 mL Solution For Nebulization 3 ml INHALATION Q4H PRN (Reason: congestion,sob,wheeze) RF: 0 polyethylene glycol 3350 [Miralax] 17 gram/dose Powder 17 g PO UD RF: 0 naproxen 500 mg Tablet 500 mg PO BID PRN (Reason: Pain) RF: 0 Discharge Problem: Fall Qualifiers: Encounter type: initial encounter Qualified Code(s): W19.XXXA - Unspecified fall, initial encounter
[2021-02-02 01:18] LABS: Troponin I < 0.015 ng/ml (0-0.045)
[2021-02-02] MEDS: MAGNESIUM SULFATE / D5W 1 GM/100 ML BAG IV SCH ×2 (01:24→02:32)
[2021-02-02 01:25] LABS: Partial Thromboplastin Ratio 1.1; Partial Thromboplastin Time 29.8 Seconds (21.0-31.0)
[2021-02-02] MEDS ORDERED: MAGNESIUM SULFATE / D5W 1 GM/100 ML BAG IV ONE ×2 (03:58→06:15)
[2021-02-02] MEDS ORDERED: SODIUM CHLORIDE 0.9% 1000ML 1,000 ML IV ONE ×2 (03:58→04:45)
[2021-02-02 04:30] LABS: Appearance Urine Clear (Clear); Bilirubin Urine Negative (Negative); Blood Urine Negative (Negative); Color Urine Yellow; Glucose Urine UA Negative (Negative); Ketones Urine Negative (Negative); Leukocyte Esterase Urine Negative (Negative); Nitrite Urine Negative (Negative); Protein Urine Negative (Negative); Specific Gravity Urine 1.018 (1.000-1.030); Urobilinogen Urine Negative (Negative)
[2021-02-02] MEDS ORDERED: DEXTROSE 50% 50 ML SYRINGE IV PRN (04:37)
[2021-02-02] MEDS ORDERED: oxyCODONE HCL IR 5 MG TAB (IMMEDIATE RELEASE) PO PRN (04:37)
[2021-02-02] MEDS ORDERED: PROMETHAZINE HCL 12.5 MG in SODIUM CHLORIDE 0.9% 50 ML IV PRN (04:37)
[2021-02-02] MEDS ORDERED: GLUCAGON FOR INJ 1 MG VIAL SQ PRN (04:37)
[2021-02-02] MEDS ORDERED: GLUCOSE 10 TABS/TUBE PO PRN (04:37)
[2021-02-02] MEDS ORDERED: GLUCOSE 40% GEL 15 GM TUBE PO PRN (04:37)
[2021-02-02] MEDS ORDERED: CARBOHYDRATES FOR HYPOGLYCEMIA PO PRN (04:37)
[2021-02-02] MEDS ORDERED: LORazepam 1 MG TAB PO PRN (04:49)
[2021-02-02] MEDS ORDERED: ACETAMINOPHEN 500 MG TAB PO PRN (04:49)
[2021-02-02] MEDS: INSULIN ASPART 100 UNITS/ML 3 ML PEN SC SCH ×5 (05:14→20:26)
[2021-02-02 06:29] LABS: Basophils # (auto) 0.02 K/uL (0-0.2); Basophils % (auto) 0.4 %; Eosinophils # (auto) 0.25 K/uL (0-0.5); Eosinophils % (auto) 5.4 %; Hemoglobin 11.9 g/dL (14.0-18.0); Immature Granulocytes # (auto) 0.02 K/uL (0.00-0.02); Immature Granulocytes % (auto) 0.4 %; Lymphocytes # (auto) 0.49 K/uL (1.2-3.4); Lymphocytes % (auto) 10.6 %; Mean Corpuscular Hemoglobin 29.9 pg (25-34); Mean Corpuscular Hgb Conc 32.2 g/dL (32-36); Mean Platelet Volume 9.5 fL (7.4-10.4); Monocytes % (auto) 15.1 %; Neutrophils # (auto) 3.16 K/uL (1.4-6.5); Neutrophils % (auto) 68.1 %; Platelet Count 170 K/uL (130-400); RDW Coefficient of Variation 14.4 % (11.5-14.5); Red Blood Count 3.98 M/uL (4.7-6.1); White Blood Count 4.64 K/uL (4.8-10.8)
[2021-02-02 06:58] LABS: BUN Creatinine Ratio 21.3 (10-20); Calcium 8.3 mg/dl (8.5-10.1); Creatinine Clr Calc Pharmacy 71.3 ml/min; Magnesium 2.1 mg/dl (1.8-2.4); Potassium 3.9 mmol/L (3.5-5.1)
--- NOTE | 2021-02-02 07:28 | XRay Report ---
XR chest 1V portable CLINICAL HISTORY: Dizzy COMPARISON STUDY: June 07, 2020 FINDINGS: No pneumothorax. No pleural effusion. Hazy opacities seen at bilateral bases which might represent atelectasis or infiltrates. Cardiomediastinal silhouette is within normal limits in size. No significant pulmonary vascular congestion.. Osseous structures: Mild degenerative changes of the left shoulder and thoracic spine. IMPRESSION: 1. Opacities at bilateral bases might represent atelectasis or infiltrates. ACT 112: Negative or not required by law. The above report was generated using voice recognition software. It may contain grammatical, syntax o r spelling errors. Electronically signed by: Laureen Fields DO 02/02/2021 7:26 AM
--- NOTE | 2021-02-02 08:32 | CT Scan Report ---
HEAD CTA HISTORY: Dizzy, can't walk, h/o SAH TECHNIQUE: Multiaxial CT images of the head were performed both before and after the intravenous admi nistration of contrast to evaluate the major cerebral vessels. Maximum intensity projection images we re also obtained. A dose lowering technique was utilized adhering to the principles of ALARA. COMPARISON: 06/07/2020. FINDINGS: There is no mass, hematoma, midline shift, or acute infarct. Stable postoperative changes c onsistent with a prior suboccipital craniectomy with encephalomalacia within the cerebellum. Atrophy and microvascular ischemic changes are again noted. Mild calcified plaque within the bilateral caroti d siphons. The major dural venous sinuses appear patent. Visualized intracranial internal carotid art eries, distal vertebral arteries, and basilar artery are widely patent. There is no significant steno sis, occlusion, or aneurysm seen within the bilateral ACAs, MCAs, or channel director. IMPRESSION: 1. No acute intracranial abnormality. 2. Stable postoperative changes. 3. No significant stenosis, occlusion, or aneurysm within the craig of Tay. ACT 112: Negative or not required by law. Electronically signed by: Damon Cronin M.D. 02/02/2021 8:30 AM
[2021-02-02] MEDS: ASPIRIN 81 MG ECTAB PO SCH ×2 (08:47→20:21)
[2021-02-02] MEDS: ISOSORBIDE MONO EXTENDED REL 30 MG TABCR PO SCH (08:47)
[2021-02-02] MEDS: ATORVASTATIN 40 MG TAB PO SCH (08:48)
[2021-02-02] MEDS: carvediloL 6.25 MG TAB PO SCH ×2 (08:48→20:19)
[2021-02-02] MEDS: LOSARTAN POTASSIUM 50 MG TAB PO SCH (08:49)
[2021-02-02] MEDS: SERTRALINE HCL 100 MG TABLET PO SCH (08:49)
[2021-02-02] MEDS: PANTOprazole 40 MG TAB PO SCH ×2 (08:49→20:21)
[2021-02-02] MEDS: CYANOCOBALAMIN 500 MCG TABLET (VITAMIN B-12) PO SCH (08:50)
[2021-02-02] MEDS: FLUTICASONE FUROATE 200MCG 14 PUFFS/INHALER INH SCH (08:51)
[2021-02-02] MEDS ORDERED: carvediloL 6.25 MG TAB PO SCH (09:00)
[2021-02-02] MEDS ORDERED: MAGNESIUM OXIDE 400 MG TAB PO SCH (09:00)
--- NOTE | 2021-02-02 09:03 | CT Scan Report ---
CT SCAN OF THE ABDOMEN AND PELVIS WITHOUT IV CONTRAST CLINICAL HISTORY: Generalized abdominal pain. COMPARISON STUDY: Abdominal CT dated 08/06/2012. TECHNIQUE: CT scan of the abdomen and pelvis is performed from the lung bases to the proximal femora. Images are reviewed in the axial, sagittal, and coronal planes. IV contrast was not administered for this examination. A dose lowering technique was utilized adhering to the principles of ALARA. The ex amination is degraded by motion artifact. CT DOSE: 918.43 mGy.cm FINDINGS: Lung bases: The heart is normal in size and without pericardial effusion. The coronary arteries and m itral annulus are densely calcified. There is a small hiatal hernia. The lung bases are clear noting bibasilar scarring/atelectasis. Liver: The unenhanced liver is elongated measuring 22 cm in length. The liver demonstrates diffusely diminished attenuation consistent with hepatic steatosis. There is no intrahepatic biliary ductal dil atation. Gallbladder: Unremarkable. Spleen: Normal in size and attenuation. Pancreas: The unenhanced pancreas is moderately atrophic and grossly unremarkable. Adrenal glands: Unremarkable. Kidneys: The unenhanced kidneys demonstrate mild cortical atrophy and are without hydronephrosis. Exc reted IV contrast fills the renal collecting systems. The presence of renal calculi cannot be assesse d. A 2.5 cm cyst is noted on the left. Abdominal vasculature: The abdominal aorta is normal in course and caliber noting advanced atheroscle rotic calcification. Bowel: There is moderate colonic diverticulosis without CT evidence of acute diverticulitis. No bowel obstruction is identified. The appendix is well-visualized and normal. Peritoneum: There is no intraperitoneal free air or abdominal ascites. There is a fat-containing umbi lical hernia. Lymphadenopathy: None. Pelvic viscera: The prostate gland is enlarged and heterogeneous noting median lobe hypertrophy. The bladder is normal as visualized, and is filled with excreted IV contrast. There is evidence of bilate ral inguinal herniorrhaphy. Skeletal structures: The skeletal structures are osteopenic. There is mild to moderate lumbosacral sp ondylosis. No lytic or blastic lesions are seen. IMPRESSION: 1. There are no acute infectious or inflammatory findings in the abdomen or pelvis. 2. Moderate colonic diverticulosis without CT evidence of acute diverticulitis. 3. Hepatic steatosis. 4. Additional findings as above. ACT 112: Negative or not required by law. Electronically signed by: Dillon Louis M.D. 02/02/2021 9:02 AM
[2021-02-02] MEDS: MAGNESIUM CHLORIDE 64MG DELAYED REL TAB PO SCH ×2 (10:13→20:23)
--- NOTE | 2021-02-02 17:18 | Electrocardiogram Report ---
Test Reason : Blood Pressure : / mmHG Vent. Rate : 076 BPM Atrial Rate : 076 BPM P-R Int : 186 ms QRS Dur : 080 ms QT Int : 368 ms P-R-T Axes : -12 -22 119 degrees QTc Int : 414 ms Normal sinus rhythm Possible Inferior infarct , age undetermined T wave abnormality, consider lateral ischemia Abnormal ECG When compared with ECG of 07-JUN-2020 09:58, Non-specific change in ST segment in Lateral leads Inverted T waves have replaced nonspecific T wave abnormality in Lateral leads Confirmed by Kevin Larson ([id number]) on 02/02/2021 5:18:13 PM Referred By: REFERRED SELF Confirmed By:Kevin Larson
--- NOTE | 2021-02-02 17:53 | Hospitalist Progress Note ---
Date of Service February 02, 2021 Assessment & Plan (1) Dizziness: Dizziness Likely secondary to dehydration from diarrhea Negative orthostatics CT head:No acute intracranial abnormality. Stable postoperative changes. No significant stenosis, occlusion, or aneurysm within the [place]. Fall precautions PT/OT Diarrhea Likely gastroenteritis Family member with similar symptoms as per patient --CT ABD:There are no acute infectious or inflammatory findings in the abdomen or pelvis. Moderate colonic diverticulosis without CT evidence of acute diverticulitis. Hepatic steatosis. Stool studies pending Received IV fluids Magnesium oxide, Metformin held likely contributing to diarrhea Hypomagnesemia Replace electrolytes as needed Magnesium oxide changed to magnesium chloride Abnormal EKG Troponin x2 negative Patient denies any anginal symptoms Echo pending Chronic diastolic heart failure H/O CAD S/P Stent H/O PVD Not on diuretics at home Continue home medications DM II HbA1c 6.07 November 2020 Hold Metformin Continue insulin therapy while hospitalized Hypertension Continue carvedilol, losartan Hyperlipidemia on statin H/O Cerebellar hemorrhage S/P Surgery 2007 COPD Past tobacco abuse No signs of exacerbation Continue home inhalers Chronic hyponatremia Sodium:134 Monitor DVT Px: SCDs Re:H/O Intracranial hemorrhage Code Status Full code Admission and Anticipated Discharge Date Admission Date: February 02, 2021 Subjective Patient is seen and examined at bedside Diarrhea resolved as per patient Denies nausea, vomiting, abdominal pain, chest pain, dyspnea Eager to get discharged Offers no other complaints Review of Systems Review of Systems: All systems reviewed & are unremarkable except as noted in HPI & below Physical Exam Physical Exam: Physical Exam: Vitals signs as noted above General Appearance:Moderately built and nourished, no apparent distress Head: normocephalic, Atraumatic, +Hearing Impairment Eyes: normal inspection, EOMI Neck: supple, Trachea midline Respiratory/Chest: Normal breath sounds, CTA Cardiovascular: S1, S2, No murmur Abdomen/GI:Soft, Non tender, Bowel sounds present Extremities/Musculoskeletal:normal inspection, no edema Neurologic/Psych:AAOX3, grossly no focal neurological deficits Skin: normal color, warm Results & Data Results & Data ([facility]) Vital Signs (Past 12 Hours) Vital Signs Temp Pulse Pulse Resp BP BP Pulse Ox 02/02/21 15:00 73 02/02/21 14:45 36.3 C L 74 18 121/63 95 02/02/21 11:24 36.4 C L 71 18 102/61 92 02/02/21 07:25 36.6 C 73 16 112/69 94 02/02/21 06:58 63 Laboratory Results Short CBC 02/01/21 02/02/21 Range/Units 20:46 05:45 WBC 6.93 4.64 L (4.8-10.8) K/uL Hgb 12.4 L 11.9 L (14.0-18.0) g/dL Hct 37.1 L 37.0 L (42-52) % Plt Count 164 170 (130-400) K/uL BMP 02/01/21 02/02/21 20:46 05:45 Sodium 132 L 134 L Potassium 4.0 3.9 Chloride 101 104 Carbon Dioxide 23 26 BUN 28 H 23 H Creatinine 1.26 1.07 Glucose 102 H 125 H Calcium 8.6 8.3 L Cardiac Enzymes 02/01/21 02/02/21 Range/Units 20:46 09:33 Troponin I < 0.015 < 0.015 (0-0.045) ng/ml Liver Function 02/01/21 Range/Units 20:46 Total Bilirubin 0.5 (0.2-1) mg/dl AST 26 (15-37) U/L ALT 31 (12-78) U/L Alkaline Phosphatase 60 (45-117) U/L Albumin 3.3 L (3.4-5.0) gm/dl Urine 02/02/21 Range/Units 04:10 Urine Color Yellow Urine Appearance Clear (Clear) Urine pH 5.0 (4.5-7.5) Ur Specific [place] 1.018 (1.000-1.030) Urine Protein Negative (Negative) Urine Glucose (UA) Negative (Negative)
[2021-02-02] MEDS ORDERED: LANTUS PER UNIT CHARGE SQ SCH (21:00)
[2021-02-02] MEDS ORDERED: INSULIN GLARGINE SOLOSTAR 100 UNITS/ML 3 ML PEN SQ SCH ×2 (21:00)
--- NOTE | 2021-02-03 05:54 | Electrocardiogram Report ---
Test Reason : Blood Pressure : / mmHG Vent. Rate : 075 BPM Atrial Rate : 075 BPM P-R Int : 188 ms QRS Dur : 078 ms QT Int : 380 ms P-R-T Axes : 056 -05 129 degrees QTc Int : 424 ms Normal sinus rhythm T wave abnormality, consider lateral ischemia Cannot rule out Inferior infarct Abnormal ECG When compared with ECG of 01-FEB-2021 20:26, No significant change was found Confirmed by Kevin Larson ([id number]) on 02/03/2021 5:54:01 AM Referred By: REFERRED SELF Confirmed By:Kevin Larson
[2021-02-03 07:32] LABS: Hematocrit (blood only) 35.4 % (42-52); Hemoglobin 11.5 g/dL (14.0-18.0); Mean Corpuscular Hemoglobin 30.3 pg (25-34); Mean Corpuscular Hgb Conc 32.5 g/dL (32-36); Mean Corpuscular Volume 93.4 fL (80-100); Mean Platelet Volume 9.4 fL (7.4-10.4); Platelet Count 166 K/uL (130-400); RDW Coefficient of Variation 14.3 % (11.5-14.5); RDW Standard Deviation 48.6 fL (36.4-46.3); Red Blood Count 3.79 M/uL (4.7-6.1); White Blood Count 4.26 K/uL (4.8-10.8)
[2021-02-03 08:24] LABS: BUN Creatinine Ratio 15.1 (10-20); Calcium 8.7 mg/dl (8.5-10.1); Creatinine Clr Calc Pharmacy 73.7 ml/min; Est GFR (African American) 82.7 ml/min; Est GFR (Non-African American) 71.4 ml/min; Magnesium 2.1 mg/dl (1.8-2.4); Potassium 4.5 mmol/L (3.5-5.1)
[2021-02-03] MEDS: carvediloL 6.25 MG TAB PO SCH (09:04)
[2021-02-03] MEDS: ASPIRIN 81 MG ECTAB PO SCH (09:06)
[2021-02-03] MEDS: MAGNESIUM CHLORIDE 64MG DELAYED REL TAB PO SCH (09:06)
[2021-02-03] MEDS: PANTOprazole 40 MG TAB PO SCH (09:06)
[2021-02-03] MEDS: CYANOCOBALAMIN 500 MCG TABLET (VITAMIN B-12) PO SCH (09:06)
[2021-02-03] MEDS: ATORVASTATIN 40 MG TAB PO SCH (09:06)
[2021-02-03] MEDS: ISOSORBIDE MONO EXTENDED REL 30 MG TABCR PO SCH (09:06)
[2021-02-03] MEDS: SERTRALINE HCL 100 MG TABLET PO SCH (09:06)
[2021-02-03] MEDS: INSULIN ASPART 100 UNITS/ML 3 ML PEN SC SCH ×2 (09:07→12:48)
[2021-02-03] MEDS: LOSARTAN POTASSIUM 50 MG TAB PO SCH (09:07)
[2021-02-03] MEDS: FLUTICASONE FUROATE 200MCG 14 PUFFS/INHALER INH SCH (09:07)
--- NOTE | 2021-02-03 12:47 | Hospitalist Progress Note ---
Date of Service February 03, 2021 Assessment & Plan (1) Dizziness: Dizziness Likely secondary to dehydration from diarrhea Negative orthostatics CT head:No acute intracranial abnormality. Stable postoperative changes. No significant stenosis, occlusion, or aneurysm within the [place]. Fall precautions PT/OT : Recommends to return home Diarrhea Likely gastroenteritis Family member with similar symptoms as per patient --CT ABD:There are no acute infectious or inflammatory findings in the abdomen or pelvis. Moderate colonic diverticulosis without CT evidence of acute diverticulitis. Hepatic steatosis. No recurrence of diarrhea since hospitalization Received IV fluids Magnesium oxide, Metformin held likely contributing to diarrhea as well Hypomagnesemia Replace electrolytes as needed Magnesium oxide changed to magnesium chloride Resolved Abnormal EKG Troponin x2 negative Patient denies any anginal symptoms Echo pending Follows with [facility] cardiology as outpatient Chronic diastolic heart failure H/O CAD S/P Stent H/O PVD Not on diuretics at home Continue home medications DM II HbA1c 6.07 November 2020 Hold Metformin Continue insulin therapy while hospitalized Hypertension Continue carvedilol, losartan Hyperlipidemia on statin H/O Cerebellar hemorrhage S/P Surgery 2007 COPD Past tobacco abuse No signs of exacerbation Continue home inhalers Chronic hyponatremia Sodium:134 Monitor DVT Px: SCDs Re:H/O Intracranial hemorrhage Code Status Full code Admission and Anticipated Discharge Date Admission Date: February 02, 2021 Subjective Patient is seen and examined at bedside States feeling well Diarrhea resolved Offers no new complaints Denies nausea, vomiting, abdominal pain, chest pain, dyspnea, dizziness Able to ambulate this morning without any issues Review of Systems Review of Systems: All systems reviewed & are unremarkable except as noted in HPI & below Physical Exam Physical Exam: Physical Exam: Vitals signs as noted above General Appearance:Moderately built and nourished, no apparent distress Head: normocephalic, Atraumatic, +Hearing Impairment Eyes: normal inspection, EOMI Neck: supple, Trachea midline Respiratory/Chest: Normal breath sounds, CTA Cardiovascular: S1, S2, No murmur Abdomen/GI:Soft, Non tender, Bowel sounds present Extremities/Musculoskeletal:normal inspection, no edema Neurologic/Psych:AAOX3, grossly no focal neurological deficits Skin: normal color, warm Results & Data Results & Data ([facility]) Vital Signs (Past 12 Hours) Vital Signs Temp Pulse Pulse Resp BP Pulse Ox 02/03/21 11:43 36.7 C 68 16 137/78 96 02/03/21 06:35 36.7 C 67 18 164/90 H 02/03/21 03:19 37.0 C 81 18 170/74 H 93 02/03/21 01:59 63 Laboratory Results Short CBC 02/03/21 Range/Units 06:31 WBC 4.26 L (4.8-10.8) K/uL Hgb 11.5 L (14.0-18.0) g/dL Hct 35.4 L (42-52) % Plt Count 166 (130-400) K/uL BMP 02/03/21 06:31 Sodium 139 Potassium 4.5 D Chloride 110 H Carbon Dioxide 24 BUN 16 Creatinine 1.04 Glucose 133 H Calcium 8.7
--- NOTE | 2021-02-03 15:19 | Discharge Summary ---
Date of Service February 03, 2021 Admission HPI Per Admitting Provider History obtained from patient and records. Medical history significant for chronic diastolic heart failure (EF 60 to 64%, TTE 2018), CAD status post stent, HTN, hyperlipidemia, PVD, history cerebellar hemorrhage status post surgery (2007), hypertension, hyperlipidemia, DM2 insulin requiring, COPD, chronic hyponatremia, chronic anemia (baseline hemoglobin 12- 13), BPH, past tobacco/alcohol abuse as per records. Last confinement June 2015 for COPD exacerbation. 2 weeks history of achy abdominal pain. No fever, no chills. 2 days ago, patient noted dizziness symptoms described as lightheadedness, not spinning. No headache. Subsequent watery diarrhea noted. Transient chest pain. Possible sick contacts at home. No cough symptoms. Hard time standing up from generalized weakness. At the ER, patient fell to the ground on his way to the bathroom. 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, lives with Admission Exam Per Admitting Provider Physical Exam Physical Exam: GENERAL: Slightly uncomfortable, slightly hard of hearing, no respiratory distress SKIN: Pallor, warm HEENT: Pale palpebral conjunctivae, no ptosis, dry buccal mucosa NECK : Supple, short neck, no tenderness CHEST : Decreased breath sounds, no tenderness HEART : RRR, no obvious murmurs ABDOMEN: Some distention, nontender EXTREMITIES : No LE swelling/tenderness, no other conspicuous deformities noted NEUROLOGIC : Coherent, no facial asymmetry, mild hearing impairment, no other gross focality Principal Diagnosis Dizziness Diarrhea Hypomagnesemia Abnormal EKG Discharge Data Allergies Allergy/AdvReac Type Severity Reaction Status Date / Time formoterol Allergy Intermediate RASH Verified 02/01/21 21:40 Penicillins Allergy Intermediate Unknown Verified 02/01/21 21:40 simvastatin Allergy Intermediate RASH Verified 02/01/21 21:40 lisinopril Allergy Unknown . Verified 02/01/21 21:40 Consultations 02/01/21 23:55 ED Decision to Admit Stat Procedures Performed CT ABD:There are no acute infectious or inflammatory findings in the abdomen or pelvis. Moderate colonic diverticulosis without CT evidence of acute diverticulitis. Hepatic steatosis. CT head:No acute intracranial abnormality. Stable postoperative changes. No significant stenosis, occlusion, or aneurysm within the [place]. Ordered Studies 02/01/21 20:38 CT angio head wo/w Urgent 02/02/21 00:46 CT abd pelvis wo con Urgent Hospital Course (1) Dizziness: Dizziness Likely secondary to dehydration from diarrhea Negative orthostatics CT head:No acute intracranial abnormality. Stable postoperative changes. No significant stenosis, occlusion, or aneurysm within the [place]. Fall precautions PT/OT : Recommends to return home Diarrhea Likely gastroenteritis Family member with similar symptoms as per patient --CT ABD:There are no acute infectious or inflammatory findings in the abdomen or pelvis. Moderate colonic diverticulosis without CT evidence of acute diverticulitis. Hepatic steatosis. No recurrence of diarrhea since hospitalization Received IV fluids Magnesium oxide, Metformin held likely contributing to diarrhea as well Hypomagnesemia Replace electrolytes as needed Magnesium oxide changed to magnesium chloride Resolved Abnormal EKG Troponin x2 negative Patient denies any anginal symptoms Echo pending Follows with [facility] cardiology as outpatient Patient prefers to be discharged home despite explaining the risks with pending echo results Advised to follow-up with cardiology as outpatient --agrees Chronic diastolic heart failure H/O CAD S/P Stent H/O PVD Not on diuretics at home Continue home medications DM II HbA1c 6.07 November 2020 Hold Metformin Continue insulin therapy while hospitalized Hypertension Continue carvedilol, losartan Hyperlipidemia on statin H/O Cerebellar hemorrhage S/P Surgery 2007 COPD Past tobacco abuse No signs of exacerbation Continue home inhalers Chronic hyponatremia Sodium:134 Monitor DVT Px: SCDs Re:H/O Intracranial hemorrhage Code Status Full code Total Time Total Time Spent Total Time Spent (In Minutes): 44 minutes Total Time Includes: Examination of the Patient, Discharge Planning, Medication Reconciliation, Communication With Other Providers and Other Discharge Plan Discharge Items Patient Disposition: Home - Self-Care Reason For Visit: DIZZINESS Discharge Diagnosis: Dizziness Diarrhea Hypomagnesemia Abnormal EKG Activity: Per Instructions section Exercise/Sports: Wait until after follow-up appointment Non-emergency contact: Primary Care Provider and Cooler Supervisor Call non-emergency contact if: you have any medication questions, your symptoms worsen, your pain is concerning for you and you have a fever Follow-up/Referrals: Eddie Ruffin MD [Primary Care Provider] - (Date & Time 02/09/2021 11:20 AM Provider Jorgito Barajas DO Department Family [facility] ) Diet: Carb Consistent or DM2 and Heart Healthy Addtl Attending Provider Instructions: Follow up with your PCP on 02/09/2021 at 11:20 AM Follow up with your Cooler Supervisor Kana Castillo in 1 week Your ECHO was pending at the time of discharge. Follow up with your physician for results Seek immediate medical attention if your symptoms reoccur or worsen Please take all medications as instructed on discharge list below. Please call if you have any questions or problems. You can reach a [facility] hospitalist on duty at [facility] 24 hours a day by calling [phone] Pending Studies at Discharge: Yes Studies:: ECHO Stand-Alone Forms: My [facility], Smoking Cessation Medications and DC Order Prescriptions: New magnesium chloride [Mag 64] 64 mg Tablet,Delayed Release (Dr/Ec) 64 mg PO BID Qty: 60 RF: 1 Continued mecobalamin (vitamin B12) 1,000 mcg tablet,chewable 1,000 mcg PO DAILY RF: 0 triamcinolone acetonide 0.1 % cream 1 appln TOP BID PRN (Reason: as directed) RF: 0 atorvastatin 80 mg tablet 80 mg PO QAM RF: 0 carvedilol 12.5 mg tablet 18.75 mg PO BID RF: 0 Lantus U-100 Insulin 100 unit/mL solution 55 unit subcut HS RF: 0 glipizide 10 mg tablet 10 mg PO BID RF: 0 isosorbide mononitrate 30 mg tablet extended release 24 hr 30 mg PO QAM RF: 0 pantoprazole 40 mg tablet,delayed release (DR/EC) 40 mg PO BID RF: 0 metformin 1,000 mg tablet 1,000 mg PO BIDM RF: 0 nitroglycerin 0.4 mg tablet, sublingual 0.4 mg sublingual UD PRN (Reason: chesst pain) RF: 0 lorazepam 1 mg tablet 1 mg PO BID PRN (Reason: anxiety/insomnia) RF: 0 albuterol sulfate [Ventolin HFA] 90 mcg/actuation HFA aerosol inhaler 2 puff inhalation Q4H PRN (Reason: SOB/Wheezing) RF: 0 Pulmicort Flexhaler 180 mcg/actuation aerosol powdr breath activated 2 inh inhalation BID RF: 0 losartan 100 mg tablet 50 mg PO QAM RF: 0 hydrocodone-acetaminophen 5-325 mg tablet 1 tab PO Q6 PRN (Reason: Pain, Severe) RF: 0 aspirin 81 mg Tablet,Delayed Release (Dr/Ec) 81 mg PO BID RF: 0 sertraline 100 mg tablet 100 mg PO DAILY RF: 0 hydroxyzine HCl 50 mg tablet 50 mg PO Q6 PRN (Reason: Anxiety) RF: 0 acetaminophen [Tylenol Extra Strength] 500 mg Tablet 1,000 mg PO Q8 MDD 6 tabs PRN (Reason: Pain) RF: 0 sennosides 8.6 mg Capsule 8.6 mg PO DAILY PRN (Reason: while taking narcotics) RF: 0 ipratropium-albuterol 0.5 mg-3 mg(2.5 mg base)/3 mL Solution For Nebulization 3 ml INHALATION Q4H PRN (Reason: congestion,sob,wheeze) RF: 0 polyethylene glycol 3350 [Miralax] 17 gram/dose Powder 17 g PO UD RF: 0 naproxen 500 mg Tablet 500 mg PO BID PRN (Reason: Pain) RF: 0 Discontinued magnesium oxide 400 mg magnesium Tablet 400 mg PO BID RF: 0 Discharge Orders: Discharge Order (Routine); Ordered 02/03/21 Ordered By: Flaquito Anderson Admission Data Admit Date/Time: 02/02/21 01:30 Attending Provider: Flaquito Anderson Admit Provider: Rex Waters Primary Care Provider: Eddie Ruffin Other Providers: Rex Waters Other Interventions: Discharge Summary Assessment (RN) Last Done: 02/03/21 15:18
== END 2021-02-03 15:59 | disposition home or self-care (01) ==
LOC: ED 20:12 → 2N 20:12 → SUATTDRO 02-02 01:30 → 2N 02-02 04:18

== ENCOUNTER 2022-05-27 15:16 | Inpatient (IN) ==
[2022-05-27] MEDS ORDERED: ACETAMINOPHEN 1,000 MG/100 ML VIAL IV STA (15:18)
[2022-05-27 15:44] LABS: iSTAT Creatinine 1.2 mg/dl (0.6-1.3); iSTAT Hemoglobin 14.3 g/dl (14.0-18.0); iSTAT Ionized Calcium 1.26 mmol/l (1.12-1.32); iSTAT Potassium 5.2 mmol/L (3.3-5.0)
[2022-05-27 15:47] LABS: Basophils # (auto) 0.12 K/uL (0-0.2); Basophils % (auto) 1.5 %; Eosinophils # (auto) 0.48 K/uL (0-0.50); Eosinophils % (auto) 5.9 %; Hematocrit (blood only) 40.6 % (40.1-51.0); Immature Granulocytes # (auto) 0.08 K/uL (0.00-0.02); Lymphocytes # (auto) 1.57 K/uL (1.2-3.4); Lymphocytes % (auto) 19.4 %; Mean Corpuscular Hemoglobin 32.9 pg (25.0-34.0); Mean Corpuscular Hgb Conc 34.5 g/dL (32.0-36.0); Mean Corpuscular Volume 95.5 fL (80.0-100.0); Mean Platelet Volume 9.3 fL (9.4-12.4); Monocytes # (auto) 0.87 K/uL (0.24-0.82); Monocytes % (auto) 10.7 %; Neutrophils # (auto) 4.99 K/uL (1.4-6.5); Neutrophils % (auto) 61.5 %; Platelet Count 212 K/uL (130-400); RDW Standard Deviation 45.4 fL (36.4-46.3); Red Blood Count 4.25 M/uL (4.63-6.08); White Blood Count 8.11 K/ul (4.8-10.8)
--- NOTE | 2022-05-27 15:59 | Emergency Department Note ---
Impression & Plan Syncope, Acute chest wall pain, CAD (coronary artery disease), COPD (chronic obstructive pulmonary disease) ED Provider Note NAME: HANNAH ELLIS AGE: 71 SEX: M ARRIVES VIA: Ambulance INFORMANT: Patient, ED PROVIDER(S): Chivo Hurst MD CHIEF COMPLAINT: Syncope, s/p CPR, referred. PLAN: Disposition: Admit MEDICAL DECISION MAKING: The patient is a pleasant 71-year-old gentleman with a past medical history of COPD, diabetes, CAD who presents emergency department via EMS from his pulmonary clinic where he was having PFTs performed and upon performing maneuvers syncopized. He was noted to be bradycardic in the 50s but then pulses were unde tectable and so CPR was initiated and AED was applied which showed no shock advised. ROSC was obtained and the patient remained stable in the 170s/80s with heart rate in the 50s with O2 saturation 98% on room air. The patient arrives emergency department complaints of chest pain. He reports he recalls doing his pulmonary function testing and then does not remember what had occurred. On arrival the patient is uncomfortable no acute distress, afebrile with heart rate in the 60s and blood pressure 98/66, mentating normally, improved with IVF. He appears clinically dry. He has reproducible tenderness of the sternum without bony crepitus. EKG without overt acute ischemia. Chest x-ray negative for acute cardiopulmonary process. WBC, H/H and platelets within normal limits. Chemistry without metabolic acidosis. Electrolytes LFTs unremarkable. High-sensitivity troponin 10.4, within normal limits. Lipase within normal limits. Covid-19 RNA, NAAT negative. Given the patient's syncopal episode where he received CPR patient was referred for admission. Favio Aranda PAC, with Dr. John Stahl hospitalist who will evaluate the patient for admission. Triage Nursing notes reviewed and agree them. Prior medical records reviewed Differential diagnosis: Vasovagal event, dehydration, infection, hypoglycemia, electrolyte abnormalities, cardiac sources, intracerebral event, pulmonary embolism, seizure, toxicologic, neurologic, as well as other pathologies. ER treatment provided: See below. Diagnostics interpreted by me: ECG: Normal sinus rhythm, 66 bpm, no ectopy, T wave abnormality laterally. Similar to prior. No overt ST elevation or depression, QTC 429, QRS 80 Cardiac Monitoring: An order for continuous cardiac monitoring was placed and demonstrated normal sinus rhythm, 66 bpm, no ectopy Laboratory studies: See below Imaging studies: See below Consultation(s): Favio Aranda PAC, with Dr. John Stahl hospitalist HPI: The patient is a pleasant 71-year-old gentleman with a past medical history of COPD, diabetes, CAD who presents emergency department via EMS from his pulmonary clinic where he was having PFTs performed and upon performing maneuvers syncopized. He was noted to Reik in the 50s but then pulses were undetectable and so CPR was initiated and AED was applied which showed no shock advised. ROSC was obtained and the patient remained stable in the 170s/80s with heart rate in the 50s with O2 saturation 98% on room air. The patient arrives emergency department complaints of chest pain. He reports he recalls doing his pulmonary function testing and then does not remember what had occurred. ROS: See above HPI for pertinent positives & negatives. A total of 10 systems reviewed and were otherwise negative. VITALS:See Below PHYSICAL EXAMINATION: GENERAL: Awake, alert, uncomfortable-appearing, in no distress HENT: Normocephalic, atraumatic. Oropharynx with dry mucous membranes and otherwise unremarkable. EYES: Normal conjunctiva. Sclera non-icteric. NECK: Supple. No nuchal rigidity. FROM. No JVD. RESPIRATORY: Clear to auscultation. CARDIAC: Regular rate, normal rhythm. Extremities warm and well perfused. Pulses equal. ABDOMEN: Soft, non-distended. No tenderness to palpation. No rebound or guarding. No masses. RECTAL: Deferred. MUSCULOSKELETAL: Chest examination reveals reproducible sternal tenderness without bony crepitus. The back is symmetrical on inspection without obvious abnormality. There is no CVA tenderness to palpation. No joint edema. LOWER EXTREMITIES: Calves are equal size bilaterally and non-tender. No edema. No discoloration. NEURO: Normal sensorium. No sensory or motor deficits noted. SKIN: No rash or jaundice noted. Chivo Hurst MD Past Med/Surg History Medical History (Updated 05/28/22 @ 02:20 by Chivo Hurst MD) BPH (benign prostatic hypertrophy) CAD (coronary artery disease) COPD (chronic obstructive pulmonary disease) Coronary artery disease, occlusive "s/p stent" DM type 2 (diabetes mellitus, type 2) GERD (gastroesophageal reflux disease) 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 Lumbago Mood disorder Sensorineural hearing loss of both ears Tobacco use disorder Surgical History (Updated 05/27/22 @ 17:45 by Kinga Guzman PA-C) H/O inguinal hernia repair History of carpal tunnel surgery S/P cardiac cath S/P total knee arthroplasty Stented coronary artery Family History (Updated 05/27/22 @ 17:44 by Kinga Guzman PA-C) Other COPD (chronic obstructive pulmonary disease) Diabetes Heart disease Rheumatoid arthritis Social History Smoking Status: Unknown if ever smoked Tobacco Type: Cigarettes Number of Years Since Quit: 31; Do You Dip or Chew Tobacco: Yes; Tobacco Cessation Education Requested by Patient: No Hx Alcohol Use: No Hx Substance Use: No Preferred Language: Yoruba Communication Ability: Effective Face Worker Required: No Beliefs That Will Affect Care: None Current Living Situation: Spouse Other Information That Helps Us Care for You: No Feels Safe at Home: Yes Safety Concerns: Feels Safe At This Time Assistive Devices: Denture - Upper, Denture - Lower, Glasses and Hearing Aid - Bilateral Allergies Allergies Allergy/AdvReac Type Severity Reaction Status Date / Time formoterol Allergy Intermediate RASH Verified 02/16/22 12:01 Penicillins Allergy Intermediate Unknown Verified 05/27/22 17:12 simvastatin Allergy Intermediate RASH Verified 02/16/22 12:01 lisinopril Allergy Unknown . Verified 05/27/22 17:12 Home Meds Home Medications Medication Instructions Recorded Confirmed albuterol sulfate 90 mcg/actuation 2 puff inhalation Q6 PRN 02/09/19 05/27/22 aerosol inhaler (Ventolin HFA) SOB/Wheezing,cough atorvastatin 80 mg tablet 80 mg PO QAM 02/09/19 05/27/22 carvedilol 12.5 mg tablet 18.75 mg PO AMHS 02/09/19 05/27/22 glipizide 10 mg tablet 5 mg PO BID 02/09/19 05/27/22 insulin glargine 100 unit/mL 55 unit subcut HS 02/09/19 05/27/22 subcutaneous solution (Lantus U-100 Insulin) isosorbide mononitrate 30 mg 30 mg PO QAM 02/09/19 05/27/22 tablet,extended release 24 hr lorazepam 1 mg tablet 1 mg PO BID PRN anxiety/insomnia 02/09/19 05/27/22 metformin 1,000 mg tablet 1,000 mg PO BIDM 02/09/19 05/27/22 nitroglycerin 0.4 mg sublingual 0.4 mg sublingual UD PRN chesst 02/09/19 05/27/22 tablet pain pantoprazole 40 mg tablet,delayed 40 mg PO DAILY 02/09/19 05/27/22 release aspirin 81 mg tablet,delayed 81 mg PO QAM 03/08/19 05/27/22 release hydrocodone 5 mg-acetaminophen 325 1 tab PO Q6 PRN Pain, Moderate 03/08/19 05/27/22 mg tablet mecobalamin (vitamin B12) 1,000 1,000 mcg PO DAILY 09/25/20 05/27/22 mcg chewable tablet hydroxyzine HCl 50 mg tablet 50 mg PO Q6 PRN Anxiety 02/01/21 05/27/22 polyethylene glycol 3350 17 17 g PO UD 02/01/21 05/27/22 gram/dose oral powder (Miralax) sertraline 100 mg tablet 100 mg PO DAILY 02/01/21 05/27/22 budesonide 180 mcg/actuation 2 inh inhalation BID 05/27/22 05/27/22 breath activated powder inhaler (Pulmicort Flexhaler) budesonide 180 mcg/actuation 2 inh inhalation BID 05/27/22 05/27/22 breath activated powder inhaler (Pulmicort Flexhaler) ferrous sulfate 325 mg (65 mg 325 mg PO Q OTHER DAY 05/27/22 05/27/22 iron) tablet losartan 100 mg tablet 50 mg PO DAILY 05/27/22 05/27/22 magnesium oxide 400 mg PO AMHS 05/27/22 05/27/22 Results & Data (ED) Vital Signs Vital Signs - 24 hr 05/27/22 15:20 05/27/22 15:25 05/27/22 15:25 Temperature Temperature Source Pulse Rate 66 Pulse Rate [Left Apical] Pulse Rhythm Regular Pulse Rhythm [Left Apical] Pulse Strength Normal Pulse Strength [Left Apical] Respiratory Rate 16 Respiratory Effort / Characteristics Non-Labored Spontaneous Respiratory Depth Normal Blood Pressure 135/83 Blood Pressure [Left Arm] Blood Pressure [Right Arm] Blood Pressure Mean 100 Blood Pressure Mean [Left Arm] Blood Pressure Mean [Right Arm] Blood Pressure Position [Left Arm] Blood Pressure Position [Right Arm] Pulse Oximetry 99 99 99 Oxygen Delivery Method Non-rebreather Non-rebreather Nasal Cannula Oxygen Flow Rate 15 15 6 Sepsis Recent Fever Within 48 Hours No Sepsis New/Unexplained Change in Mental Status No Sepsis Action Taken by Nursing No Action Required Oxygen Flow Rate - Titration 6 Pulse Oximetry Post Tiitration 96 05/27/22 15:26 05/27/22 15:40 05/27/22 15:49 Temperature 36.7 C Temperature Source Oral Pulse Rate Pulse Rate [Left Apical] 70 67 68 Pulse Rhythm Pulse Rhythm [Left Apical] Regular Regular Regular Pulse Strength Pulse Strength [Left Apical] Normal Normal Normal Respiratory Rate 16 16 20 Respiratory Effort / Characteristics Non-Labored Spontaneous Non-Labored Spontaneous Non-Labored Spontaneous Respiratory Depth Normal Normal Normal Blood Pressure Blood Pressure [Left Arm] Blood Pressure [Right Arm] 122/68 98/66 L Blood Pressure Mean Blood Pressure Mean [Left Arm] Blood Pressure Mean [Right Arm] 86 76 Blood Pressure Position [Left Arm] Blood Pressure Position [Right Arm] Lying Pulse Oximetry 96 96 97 Oxygen Delivery Method Nasal Cannula Nasal Cannula Nasal Cannula Oxygen Flow Rate 4 2 2 Sepsis Recent Fever Within 48 Hours Sepsis New/Unexplained Change in Mental Status Sepsis Action Taken by Nursing Oxygen Flow Rate - Titration Pulse Oximetry Post Tiitration 05/27/22 16:04 05/27/22 17:29 05/27/22 18:00 Temperature Temperature Source Pulse Rate Pulse Rate [Left Apical] 68 68 70 Pulse Rhythm Pulse Rhythm [Left Apical] Regular Regular Regular Pulse Strength Pulse Strength [Left Apical] Normal Normal Normal Respiratory Rate 16 16 20 Respiratory Effort / Characteristics Non-Labored Spontaneous Non-Labored Spontaneous Non-Labored Spontaneous Respiratory Depth Normal Normal Normal Blood Pressure Blood Pressure [Left Arm] Blood Pressure [Right Arm] 121/64 94/55 L Blood Pressure Mean Blood Pressure Mean [Left Arm] Blood Pressure Mean [Right Arm] 83 68 Blood Pressure Position [Left Arm] Blood Pressure Position [Right Arm] Pulse Oximetry 96 96 96 Oxygen Delivery Method Nasal Cannula Room Air Room Air Oxygen Flow Rate 2 Sepsis Recent Fever Within 48 Hours Sepsis New/Unexplained Change in Mental Status Sepsis Action Taken by Nursing Oxygen Flow Rate - Titration Pulse Oximetry Post Tiitration 05/27/22 18:32 05/27/22 18:50 Temperature 36.6 C Temperature Source Oral Pulse Rate Pulse Rate [Left Apical] 72 67 Pulse Rhythm Pulse Rhythm [Left Apical] Regular Pulse Strength Pulse Strength [Left Apical] Normal Respiratory Rate 20 16 Respiratory Effort / Characteristics Non-Labored Spontaneous Respiratory Depth Normal Blood Pressure Blood Pressure [Left Arm] 170/98 H Blood Pressure [Right Arm] 136/76 Blood Pressure Mean Blood Pressure Mean [Left Arm] 122 Blood Pressure Mean [Right Arm] 96 Blood Pressure Position [Left Arm] Lying Blood Pressure Position [Right Arm] Pulse Oximetry 94 97 Oxygen Delivery Method Room Air Room Air Oxygen Flow Rate Sepsis Recent Fever Within 48 Hours Sepsis New/Unexplained Change in Mental Status Sepsis Action Taken by Nursing Oxygen Flow Rate - Titration Pulse Oximetry Post Tiitration Laboratory Data Attestation: I reviewed the patient's lab results. Result diagrams: 05/28/22 00:58 05/28/22 00:58 Lab Results 05/27/22 05/27/22 05/27/22 Range/Units 15:23 15:23 15:30 WBC 8.11 (4.8-10.8) K/ul RBC 4.25 L (4.63-6.08) M/uL Hgb 14.0 (14.0-18.0) g/dl POC Hgb 14.3 (14.0-18.0) g/dl Hct 40.6 (40.1-51.0) % POC Hct 42 (42-52) % MCV 95.5 (80.0-100.0) fL MCH 32.9 (25.0-34.0) pg MCHC 34.5 (32.0-36.0) g/dL RDW Std Deviation 45.4 (36.4-46.3) fL RDW Coeff of Alesia 13.0 (11.5-14.5) % Plt Count 212 (130-400) K/uL MPV 9.3 L (9.4-12.4) fL Immature Gran % (Auto) 1.0 % Neut % (Auto) 61.5 % Lymph % (Auto) 19.4 % [place] % (Auto) 10.7 % Eos % (Auto) 5.9 % Baso % (Auto) 1.5 % Neut # (Auto) 4.99 (1.4-6.5) K/uL Lymph # (Auto) 1.57 (1.2-3.4) K/uL [place] # (Auto) 0.87 H (0.24-0.82) K/uL Eos # (Auto) 0.48 (0-0.50) K/uL Baso # (Auto) 0.12 (0-0.2) K/uL Immature Gran # (Auto) 0.08 H (0.00-0.02) K/uL POC Sodium 136 (135-144) mmol/L Sodium 134 L (136-145) mmol/L POC Potassium 5.2 H (3.3-5.0) mmol/L Potassium 5.1 (3.5-5.1) mmol/L POC Chloride 101 (101-112) mmol/L Chloride 100 (98-107) mmol/L Carbon Dioxide 22 (21-32) mmol/L POC Total CO2 22 L (24-31) mmol/L Anion Gap 12 H (3-11) POC Anion Gap 20.0 (16-25) mmol/L POC BUN 17 (7-18) mg/dl BUN 19 (6-23) mg/dl Creatinine 1.24 (0.6-1.4) mg/dl POC Creatinine 1.2 (0.6-1.3) mg/dl Est Cr Clr Drug Dosing Not Reportable Est GFR ( Amer) 66.4 ml/min Est GFR (Non-Af Amer) 57.3 ml/min BUN/Creatinine Ratio 15.3 (10-20) Glucose 187 H (70-99(Fasting)) mg/dl POC Glucose (other) 187 H (70-99) mg/dl Calcium 10.0 (8.5-10.1) mg/dl POC Ioniz Calcium Amando 1.26 (1.12-1.32) mmol/l Phosphorus 4.2 (2.5-4.9) mg/dl Magnesium 1.9 (1.7-2.4) mg/dl Total Bilirubin 0.6 (0.2-1.0) mg/dl AST 35 (13-39) U/L ALT 38 (7-52) U/L Alkaline Phosphatase 58 (34-104) U/L Troponin I High Sens 10.4 (0-20) pg/ml Total Protein 7.2 (6.0-8.3) gm/dl Albumin 4.3 (3.4-5.0) gm/dl Globulin 2.9 (2.5-4.0) gm/dl Albumin/Globulin Ratio 1.5 (0.9-2) Lipase 28 (11-82) U/L SARS-CoV-2, RNA, NAAT (NEGATIVE) 05/27/22 Range/Units 15:36 WBC (4.8-10.8) K/ul RBC (4.63-6.08) M/uL Hgb (14.0-18.0) g/dl POC Hgb (14.0-18.0) g/dl Hct (40.1-51.0) % POC Hct (42-52) % MCV (80.0-100.0) fL MCH (25.0-34.0) pg MCHC (32.0-36.0) g/dL RDW Std Deviation (36.4-46.3) fL RDW Coeff of Alesia (11.5-14.5) % Plt Count (130-400) K/uL MPV (9.4-12.4) fL Immature Gran % (Auto) % Neut % (Auto) % Lymph % (Auto) % [place] % (Auto) % Eos % (Auto) % Baso % (Auto) % Neut # (Auto) (1.4-6.5) K/uL Lymph # (Auto) (1.2-3.4) K/uL [place] # (Auto) (0.24-0.82) K/uL Eos # (Auto) (0-0.50) K/uL Baso # (Auto) (0-0.2) K/uL Immature Gran # (Auto) (0.00-0.02) K/uL POC Sodium (135-144) mmol/L Sodium (136-145) mmol/L POC Potassium (3.3-5.0) mmol/L Potassium (3.5-5.1) mmol/L POC Chloride (101-112) mmol/L Chloride (98-107) mmol/L Carbon Dioxide (21-32) mmol/L POC Total CO2 (24-31) mmol/L Anion Gap (3-11) POC Anion Gap (16-25) mmol/L POC BUN (7-18) mg/dl BUN (6-23) mg/dl Creatinine (0.6-1.4) mg/dl POC Creatinine (0.6-1.3) mg/dl Est Cr Clr Drug Dosing Est GFR ( Amer) ml/min Est GFR (Non-Af Amer) ml/min BUN/Creatinine Ratio (10-20) Glucose (70-99(Fasting)) mg/dl POC Glucose (other) (70-99) mg/dl Calcium (8.5-10.1) mg/dl POC Ioniz Calcium Amando (1.12-1.32) mmol/l Phosphorus (2.5-4.9) mg/dl Magnesium (1.7-2.4) mg/dl Total Bilirubin (0.2-1.0) mg/dl AST (13-39) U/L ALT (7-52) U/L Alkaline Phosphatase (34-104) U/L Troponin I High Sens (0-20) pg/ml Total Protein (6.0-8.3) gm/dl Albumin (3.4-5.0) gm/dl Globulin (2.5-4.0) gm/dl Albumin/Globulin Ratio (0.9-2) Lipase (11-82) U/L SARS-CoV-2, RNA, NAAT NEGATIVE (NEGATIVE) Administered Medications Diclofenac Sodium (Diclofenac Sod 1% Gel 100 Gm Tube) 4 gm EXT Q6 AUDREY; Protocol Stop: 06/27/22 00:00 Last Admin: 05/27/22 23:13 Dose: 4 gm Documented By: MALINDA Insulin Aspart (Insulin Aspart Per Unit) 0 units SC Q6 AUDREY Stop: 06/27/22 00:00 Last Admin: 05/28/22 00:16 Dose: Not Given Documented By: MALINDA Co-signed By: [facility]SM Magnesium Oxide (Magnesium Oxide 400 Mg Tab) 400 mg PO AMHS AUDREY Stop: 06/26/22 20:59 Last Admin: 05/27/22 20:53 Dose: 400 mg Documented By: MALINDA Miscellaneous (Remove Nicoderm Patch) 1 each N/A DAILY@0859 AUDREY Stop: 06/26/22 19:58 Last Admin: 05/27/22 19:58 Dose: Not Given Documented By: MALINDA Nicotine (Nicotine 14 Mg/24 Hr Patch) 14 mg TD QAM AUDREY Stop: 06/26/22 19:59 Last Admin: 05/27/22 19:57 Dose: Not Given Documented By: MALINDA Discontinued Medications Acetaminophen (Ofirmev) 1,000 mg in 100 mls @ 400 mls/hr IV NOW STA Stop: 05/27/22 15:32 Last Infusion: 05/27/22 15:48 Dose: 0 mls/hr Documented By: Admin: 05/27/22 15:33 Dose: 400 mls/hr Documented By: BRENDAN Sodium Chloride (Nss) 500 mls @ 999 mls/hr IV .Q31M ONE Stop: 05/27/22 17:18 Last Infusion: 05/27/22 17:59 Dose: 0 mls/hr Documented By: Admin: 05/27/22 17:28 Dose: 999 mls/hr Documented By: BRENDAN Insulin Aspart (Insulin Aspart Per Unit) 0 units SC ACHS [facility] Stop: 05/27/22 20:01 Last Admin: 05/27/22 20:06 Dose: Not Given Documented By: MALINDA Co-signed By: AMP Insulin Glargine (Lantus Per Unit Charge) 0 units SQ 0000 [facility]; Protocol Stop: 05/28/22 00:01 Last Admin: 05/28/22 00:16 Dose: Not Given Documented By: MALINDA Lidocaine (Lidocaine 5% 1 Patch) 1 patch TD NOW STA Stop: 05/27/22 16:49 Last Admin: 05/27/22 17:28 Dose: 1 patch Documented By: BRENDAN Miscellaneous (Remove Lidoderm Patch) 1 each N/A DAILY@2100 AUDREY Stop: 05/27/22 21:01 Last Admin: 05/27/22 20:53 Dose: 1 each Documented By: MALINDA Imaging Data Radiologist's Impression: Chest X-Ray 05/27/22 15:20 XR chest 1V portable HISTORY: 71 years-old Male Chest Pain acute chest pain COMPARISON: 02/01/2021 TECHNIQUE: AP view of the chest FINDINGS: Cardiac silhouette is enlarged. Mild chronic interstitial coarsening. Unchanged blunting of the costophrenic angles. No pneumothorax, overt pulmonary edema, large pleural effusion or lobar airspace consolidation. Degenerative changes of the shoulders and spine. IMPRESSION: Cardiomegaly without acute process. ACT 112: Negative or not required by law. The above report was generated using voice recognition software. It may contain grammatical, syntax or spelling errors. Electronically signed by: Jacob Cleveland M.D. 05/27/2022 4:14 PM Discharge Plan Visit Data Chief Complaint: Syncope ED Provider: Chivo Hurst Discharge Problem: Syncope, Acute chest wall pain, CAD (coronary artery disease), COPD (chronic obstructive pulmonary disease) Patient Disposition: Admitted As Inpatient Discharge Instructions Interventions: ED Discharge Assessment Last Done: 05/27/22 18:36 : Syncope Qualifiers: Syncope type: vasovagal syncope Qualified Code(s): R55 - Syncope and collapse
[2022-05-27 16:07] LABS: Alanine Aminotransferase 38 U/L (7-52); Albumin Globulin Ratio 1.5 (0.9-2); Albumin Level 4.3 gm/dl (3.4-5.0); Alkaline Phosphatase 58 U/L (34-104); Anion Gap 12 (3-11); Aspartate Aminotransferase 35 U/L (13-39); BUN Creatinine Ratio 15.3 (10-20); Bilirubin,Total 0.6 mg/dl (0.2-1.0); Blood Urea Nitrogen 19 mg/dl (6-23); Carbon Dioxide 22 mmol/L (21-32); Chloride 100 mmol/L (98-107); Est GFR (African American) 66.4 ml/min; Est GFR (Non-African American) 57.3 ml/min; Globulin 2.9 gm/dl (2.5-4.0); Glucose 187 mg/dl (70-99(Fasting)); Lipase 28 U/L (11-82); Magnesium 1.9 mg/dl (1.7-2.4); Phosphorus 4.2 mg/dl (2.5-4.9); Potassium 5.1 mmol/L (3.5-5.1); Sodium 134 mmol/L (136-145); Total Protein 7.2 gm/dl (6.0-8.3)
[2022-05-27 16:12] LABS: Troponin I High Sensitivity 10.4 pg/ml (0-20)
--- NOTE | 2022-05-27 16:15 | XRay Report ---
XR chest 1V portable HISTORY: 71 years-old Male Chest Pain acute chest pain COMPARISON: 02/01/2021 TECHNIQUE: AP view of the chest FINDINGS: Cardiac silhouette is enlarged. Mild chronic interstitial coarsening. Unchanged blunting of the costo phrenic angles. No pneumothorax, overt pulmonary edema, large pleural effusion or lobar airspace cons olidation. Degenerative changes of the shoulders and spine. IMPRESSION: Cardiomegaly without acute process. ACT 112: Negative or not required by law. The above report was generated using voice recognition software. It may contain grammatical, syntax o r spelling errors. Electronically signed by: Jacob Cleveland M.D. 05/27/2022 4:14 PM
[2022-05-27] MEDS ORDERED: SODIUM CHLORIDE 0.9% 500 ML IV ONE (16:48)
[2022-05-27] MEDS ORDERED: LIDOCAINE 5% 1 PATCH TD STA (16:48)
--- NOTE | 2022-05-27 17:03 | History & Physical Report ---
Date of Service May 27, 2022 Assessment & Plan (1) Syncope and collapse: Plan: - Admit to tele for observation for r/o for syncopal episode - Cardiology consultation for presumed episode of syncope, vasovagal with pulselessness - highly possible that the patient BP or HR was so low from vasovagal response that pulse was not felt but was not truly in cardiac arrest. - Trend cardiac biomarkers, initial set was negative - EKG reviewed as above - Check 2 D echo, last reviewed showing preserved EF of 55-60% in January 2021, grade 1 diastolic dysfunction - PT/OT consulted - Follow labs - Daily EKG (2) COPD (chronic obstructive pulmonary disease): Plan: - Hx of such, continue on home inhalers - Outpatient PFTs as above - CXR 1 view without acute abnormalities, if worsening chest pain need repeat imaging to confirm no fractures. - Does not require supplemental O2 at baseline - Smoking cessation encouraged, nicotine patch ordered (3) CAD (coronary artery disease): Plan: - Continue on home medications, await cardiology recommendations - Lipid panel with am labs - Continue baby aspirin, atorvastatin, carvedilol, Imdur, losartan (4) DM type 2 (diabetes mellitus, type 2): Plan: - Cont Lantus 55 U QPM, ISS with accuchecks achs - Check A1C - Holding glipizide, metformin DVT ppx: - teds, scds CODE: Full code Dispo: From home, likely to remain in the hospital x 1-2 days History of Present Illness Chief Complaint: Syncopal episode Primary Care Provider: Eddie Ruffin MD This is a 71 yo M with PMhx of chronic diastolic heart failure (EF 55-60%, TTE January 2021), CAD status post stent, HTN, hyperlipidemia, PVD, history cerebellar hemorrhage status post surgery (2007), DM2 insulin requiring, COPD, chronic hyponatremia, chronic anemia (baseline hemoglobin 12-13), BPH, past tobacco/alcohol abuse as per records. Pt had a syncopal episode while he was undergoing PFT testing at outpatient facility. Upon examination, no pulse was detected and chest compressions were started and lasted about 45 seconds per nursing report. AED was placed on the patients chest and no shock was advised. Initially he was called as a heart alert to the ER, EKG showed normal sinus rhythm with lateral T wave flattening, which appears to be old finding, his blood pressure 170/50, HR in 50s initially. Currently his BP is 94/55 with HR 68. He denies any chest pain, palpitations, flutter lightheadedness or dizziness, shortness of breath and does not typically wear oxygen at baseline. He feels that his chest is sore as he points to his sternum. He has never had an episode like this before. His , daughter and son are present at bedside. Chest x-ray 1 view does not show obvious rib fractures. Allergies Allergy/AdvReac Type Severity Reaction Status Date / Time formoterol Allergy Intermediate RASH Verified 02/16/22 12:01 Penicillins Allergy Intermediate Unknown Verified 05/27/22 17:12 simvastatin Allergy Intermediate RASH Verified 02/16/22 12:01 lisinopril Allergy Unknown . Verified 05/27/22 17:12 Home Medications Medication Instructions Recorded Confirmed Type albuterol sulfate 90 mcg/actuation 2 puff inhalation Q6 PRN 02/09/19 05/27/22 History aerosol inhaler (Ventolin HFA) SOB/Wheezing,cough atorvastatin 80 mg tablet 80 mg PO QAM 02/09/19 05/27/22 History carvedilol 12.5 mg tablet 18.75 mg PO AMHS 02/09/19 05/27/22 History glipizide 10 mg tablet 5 mg PO BID 02/09/19 05/27/22 History insulin glargine 100 unit/mL 55 unit subcut HS 02/09/19 05/27/22 History subcutaneous solution (Lantus U-100 Insulin) isosorbide mononitrate 30 mg 30 mg PO QAM 02/09/19 05/27/22 History tablet,extended release 24 hr lorazepam 1 mg tablet 1 mg PO BID PRN anxiety/insomnia 02/09/19 05/27/22 History metformin 1,000 mg tablet 1,000 mg PO BIDM 02/09/19 05/27/22 History nitroglycerin 0.4 mg sublingual 0.4 mg sublingual UD PRN chesst 02/09/19 05/27/22 History tablet pain pantoprazole 40 mg tablet,delayed 40 mg PO DAILY 02/09/19 05/27/22 History release aspirin 81 mg tablet,delayed 81 mg PO QAM 03/08/19 05/27/22 History release hydrocodone 5 mg-acetaminophen 325 1 tab PO Q6 PRN Pain, Moderate 03/08/19 05/27/22 History mg tablet mecobalamin (vitamin B12) 1,000 1,000 mcg PO DAILY 09/25/20 05/27/22 History mcg chewable tablet hydroxyzine HCl 50 mg tablet 50 mg PO Q6 PRN Anxiety 02/01/21 05/27/22 History polyethylene glycol 3350 17 17 g PO UD 02/01/21 05/27/22 History gram/dose oral powder (Miralax) sertraline 100 mg tablet 100 mg PO DAILY 02/01/21 05/27/22 History budesonide 180 mcg/actuation 2 inh inhalation BID 05/27/22 05/27/22 History breath activated powder inhaler (Pulmicort Flexhaler) budesonide 180 mcg/actuation 2 inh inhalation BID 05/27/22 05/27/22 History breath activated powder inhaler (Pulmicort Flexhaler) ferrous sulfate 325 mg (65 mg 325 mg PO Q OTHER DAY 05/27/22 05/27/22 History iron) tablet losartan 100 mg tablet 50 mg PO DAILY 05/27/22 05/27/22 History magnesium oxide 400 mg PO AMHS 05/27/22 05/27/22 History Past Med/Surg History Medical History (Updated 05/27/22 @ 17:54 by Kinga Guzman PA-C) BPH (benign prostatic hypertrophy) CAD (coronary artery disease) COPD (chronic obstructive pulmonary disease) Coronary artery disease, occlusive "s/p stent" DM type 2 (diabetes mellitus, type 2) GERD (gastroesophageal reflux disease) 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 Lumbago Mood disorder Sensorineural hearing loss of both ears Tobacco use disorder Surgical History (Updated 05/27/22 @ 17:45 by Kinga Guzman PA-C) H/O inguinal hernia repair History of carpal tunnel surgery S/P cardiac cath S/P total knee arthroplasty Stented coronary artery Family History (Updated 05/27/22 @ 17:44 by Kinga Guzman PA-C) Other COPD (chronic obstructive pulmonary disease) Diabetes Heart disease Rheumatoid arthritis Social History Smoking Status: Unknown if ever smoked Tobacco Type: Cigarettes Number of Years Since Quit: 31; Hx Alcohol Use: No Hx Substance Use: No Preferred Language: German Communication Ability: Effective Beliefs That Will Affect Care: None Current Living Situation: Spouse Feels Safe at Home: Yes Assistive Devices: Cane Review of Systems Review of Systems: Constitutional: No fever, sweats or chills Eyes: No diplopia, no worsening or blurred vision ENT: normal hearing, no trouble swallowing Respiratory: No cough, sputum, dyspnea at rest or on exertion Cardiovascular: + chest soreness, No new chest pain, tightness or palpitations, no palpations Abdomen: No pain, nausea, vomiting, diarrhea or constipation Musculoskeletal: No joint pain, calf pain, swelling Neurologic: No weakness, numbness/tingling, + balance problems uses a cane at baseline Psychiatric: No anxiety or depression Skin: No rash or itch Physical Exam Physical Exam: General: awake, alert, no apparent distress Head: Normocephalic, atraumatic ENT: PERRL, EOMI, no pharyngeal exudate, mucous membranes moist Chest: Clear to auscultation, on room air, no adventitious breath sounds, no obvious ecchymosis, tenderness is reproducible Cardiac: Regular rate and rhythm, no murmur, no JVD, normal peripheral pulses, good capillary refill Abdominal: NABS x 4 quadrants, soft, nondistended, nontender to palpation, no rebound or guarding Extremities: Normal inspection, no peripheral edema or erythema, calfs nontender to palpation Psych: Normal mood and affect Neuro: AAO x 3, strength intact bilaterally and rated 5/5, no motor deficits, speech is clear, no peripheral sensory deficits Results & Data Results & Data ([facility]) Vital Signs (Past 12 Hours) Vital Signs Temp Pulse Pulse Resp BP BP Pulse Ox 05/27/22 16:04 68 16 121/64 96 05/27/22 15:49 68 20 98/66 L 97 05/27/22 15:40 36.7 C 67 16 122/68 96 05/27/22 15:26 70 16 96 05/27/22 15:25 99 05/27/22 15:25 99 05/27/22 15:20 66 16 135/83 99 O2 Del Method O2 Flow Rate 05/27/22 16:04 Nasal Cannula 2 05/27/22 15:49 Nasal Cannula 2 05/27/22 15:40 Nasal Cannula 2 05/27/22 15:26 Nasal Cannula 4 05/27/22 15:25 Nasal Cannula 6 05/27/22 15:25 Non-rebreather 15 05/27/22 15:20 Non-rebreather 15 Laboratory Results 05/27/22 05/27/22 05/27/22 15:36 15:30 15:23 WBC 8.11 RBC 4.25 L Hgb 14.0 POC Hgb 14.3 Hct 40.6 POC Hct 42 MCV 95.5 MCH 32.9 MCHC 34.5 RDW Std Deviation 45.4 RDW Coeff of Alesia 13.0 Plt Count 212 MPV 9.3 L Immature Gran % (Auto) 1.0 Neut % (Auto) 61.5 Lymph % (Auto) 19.4 [place] % (Auto) 10.7 Eos % (Auto) 5.9 Baso % (Auto) 1.5 Neut # (Auto) 4.99 Lymph # (Auto) 1.57 [place] # (Auto) 0.87 H Eos # (Auto) 0.48 Baso # (Auto) 0.12 Immature Gran # (Auto) 0.08 H POC Sodium 136 Sodium POC Potassium 5.2 H Potassium POC Chloride 101 Chloride Carbon Dioxide POC Total CO2 22 L Anion Gap POC Anion Gap 20.0 POC BUN 17 BUN Creatinine POC Creatinine 1.2 Est Cr Clr Drug Dosing Est GFR ( Amer) Est GFR (Non-Af Amer) BUN/Creatinine Ratio Glucose POC Glucose (other) 187 H Calcium POC Ioniz Calcium Amando 1.26 Phosphorus Magnesium Total Bilirubin AST ALT Alkaline Phosphatase Troponin I High Sens Total Protein Albumin Globulin Albumin/Globulin Ratio Lipase SARS-CoV-2, RNA, NAAT NEGATIVE 05/27/22 15:23 WBC RBC Hgb POC Hgb Hct POC Hct MCV MCH MCHC RDW Std Deviation RDW Coeff of Alesia Plt Count MPV Immature Gran % (Auto) Neut % (Auto) Lymph % (Auto) [place] % (Auto) Eos % (Auto) Baso % (Auto) Neut # (Auto) Lymph # (Auto) [place] # (Auto) Eos # (Auto) Baso # (Auto) Immature Gran # (Auto) POC Sodium Sodium 134 L POC Potassium Potassium 5.1 POC Chloride Chloride 100 Carbon Dioxide 22 POC Total CO2 Anion Gap 12 H POC Anion Gap POC BUN BUN 19 Creatinine 1.24 POC Creatinine Est Cr Clr Drug Dosing Not Reportable Est GFR ( Amer) 66.4 Est GFR (Non-Af Amer) 57.3 BUN/Creatinine Ratio 15.3 Glucose 187 H POC Glucose (other) Calcium 10.0 POC Ioniz Calcium Amando Phosphorus 4.2 Magnesium 1.9 Total Bilirubin 0.6 AST 35 ALT 38 Alkaline Phosphatase 58 Troponin I High Sens 10.4 Total Protein 7.2 Albumin 4.3 Globulin 2.9 Albumin/Globulin Ratio 1.5 Lipase 28 SARS-CoV-2, RNA, NAAT Diagnostic Findings Chest X-Ray 05/27/22 15:20 XR chest 1V portable HISTORY: 71 years-old Male Chest Pain acute chest pain COMPARISON: 02/01/2021 TECHNIQUE: AP view of the chest FINDINGS: Cardiac silhouette is enlarged. Mild chronic interstitial coarsening. Unchanged blunting of the costophrenic angles. No pneumothorax, overt pulmonary edema, large pleural effusion or lobar airspace consolidation. Degenerative changes of the shoulders and spine. IMPRESSION: Cardiomegaly without acute process. ACT 112: Negative or not required by law. The above report was generated using voice recognition software. It may contain grammatical, syntax or spelling errors. Electronically signed by: Jacob Cleveland M.D. 05/27/2022 4:14 PM ECG Additional Comments: 27-MAY-2022 15:22:46 [facility]-EDSTAT ROUTINE RETRIEVAL Normal sinus rhythm T wave abnormality, consider lateral ischemia Abnormal ECG When compared with ECG of 02-FEB-2021 09:42, Nonspecific T wave abnormality no longer evident in Anterior leads 25mm/s10mm/[id number] 241CID: 10Unconfirmed Vent. rate 66 BPM AK interval 182 ms QRS duration 80 ms QT/QTc 410/429 ms Code Status & VTE Plan Code Status Full Code - discussed with the patient at bedside Supervising Physician Co-Signing Physician Notes The patient is a 71 year old man wiht pmh HFpEF, CAD who presented from pulmonary clinic after syncope/cardiac arrest as reported during his PFTs. Patient apparently lost consciousness and staff was not able to find a pulse so performed approximately 45 minutes of CPR and not shock applied. PAtient is AAOx3 in ED, only complaints of chest pain where CPR was performed. Lungs CTAB, ABD nontender and BS present, Ext with no edema, pulses 2+ bilaterally. Heart RRR. ECG without ischemic changes, initial trop negative. Tele admit, cycle trop, ECG. TTE in AM. Cardiology consult. Patient reported TTE recently with LVEF 64%, negative stress test 04/2022. Etiology appears to be vasovagal but given Cardiac history will observe overnight with previously mentioned work up and follow up. Case discussed with Kinga Guzman PA-C and agree rest of plan outlined in above H&P.
[2022-05-27] MEDS ORDERED: LORazepam 1 MG TAB PO PRN (19:06)
[2022-05-27] MEDS ORDERED: DEXTROSE 50% 50 ML SYRINGE IV PRN ×2 (19:06)
[2022-05-27] MEDS ORDERED: GLUCOSE 10 TAB/TUBE PO PRN ×2 (19:06)
[2022-05-27] MEDS ORDERED: GLUCAGON FOR INJ 1 MG VIAL SQ PRN ×2 (19:06)
[2022-05-27] MEDS ORDERED: PHARMACY GLYCEMIC MGMT CONSULT PRN (19:06)
[2022-05-27] MEDS ORDERED: ALBUTEROL HFA 8 GM INHALER INH PRN (19:06)
[2022-05-27] MEDS ORDERED: CARBOHYDRATES FOR HYPOGLYCEMIA PO PRN ×2 (19:06)
[2022-05-27] MEDS ORDERED: ONDANSETRON INJ 2 MG/ML 2 ML VIAL IV PRN (19:06)
[2022-05-27] MEDS ORDERED: POLYETHYLENE (MIRALAX) 17 GM PACK PO PRN (19:06)
[2022-05-27] MEDS ORDERED: hydrOXYzine HCl 25 MG TAB PO PRN (19:06)
[2022-05-27] MEDS ORDERED: GLUCOSE 40% GEL 15 GM TUBE PO PRN ×2 (19:06)
[2022-05-27] MEDS ORDERED: NITROGLYCERIN SL 0.4 MG/TAB TAB SL PRN (19:06)
[2022-05-27] MEDS ORDERED: ACETAMINOPHEN 325 MG TAB PO PRN (19:06)
[2022-05-27] MEDS ORDERED: HYDROCODONE/ACETAMOPHEN 5/325MG TAB PO PRN (19:06)
[2022-05-27] MEDS: NICOTINE 14 MG/24 HR PATCH TD SCH (19:57)
[2022-05-27] MEDS ORDERED: INSULIN ASPART PER UNIT SC SCH ×2 (20:00→21:00)
--- NOTE | 2022-05-27 20:14 | Pharmacy Report ---
Pharmacy Glycemic Short Note 2 - Date of Service May 27, 2022 - Glycemic Short BSG Results (Last 24 hours): 05/27/22 05/27/22 15:23 15:30 Glucose 187 H POC Glucose (other) 187 H OUTPATIENT ANTIDIABETIC REGIMEN: * Lantus 55 units SC HS * Metformin 1 g PO daily * Glipizide 5 mg PO BIDM HbA1c ordered for tomorrow AM ASSESSMENT: * DM is a 71 year old male presented to [facility] ED following syncopal episode while undergoing PFT testing * PMH includes T2DM (unsure of level of control - A1c pending), COPD, CAD * BSG in ED of 187 mg/dL, BSG upon admission this evening of 94 mg/dL - no insulin administered so far * Patient will be NPO after midnight pending cardiology consultation * Given recent syncopal event, current BSG < 100 mg/dL, and NPO - will hold off on basal this evening and cover with overnight Novolog PLAN FOR INPATIENT GLYCEMIC CONTROL: * Hold outpatient oral diabetes medications * Basal insulin * hold, reassess in AM * Bolus insulin * NovoLog per scale ACHS or Q6hrs while NPO * Goal Range: Low 110 mg/dL - High 140 mg/dL * Correction Factor: 30 mg/dL/unit * Nutritional / Prandial insulin per carb ratio of 1 unit per 10 grams CHO consumed
[2022-05-27] MEDS: MAGNESIUM OXIDE 400 MG TAB PO SCH (20:53)
[2022-05-27] MEDS ORDERED: LANTUS PER UNIT CHARGE SQ SCH (21:00)
[2022-05-27] MEDS: DICLOFENAC SOD 1% GEL 100 GM TUBE EXT SCH (23:13)
[2022-05-28] MEDS: INSULIN ASPART PER UNIT SC SCH ×2 (00:16→05:58)
[2022-05-28 01:08] LABS: Hematocrit (blood only) 37.8 % (40.1-51.0); Hemoglobin 12.7 g/dl (14.0-18.0); Mean Corpuscular Hemoglobin 32.9 pg (25.0-34.0); Mean Corpuscular Hgb Conc 33.6 g/dL (32.0-36.0); Mean Corpuscular Volume 97.9 fL (80.0-100.0); Mean Platelet Volume 9.2 fL (9.4-12.4); Platelet Count 180 K/uL (130-400); RDW Coefficient of Variation 13.1 % (11.5-14.5); RDW Standard Deviation 46.7 fL (36.4-46.3); Red Blood Count 3.86 M/uL (4.63-6.08); White Blood Count 10.85 K/ul (4.8-10.8)
[2022-05-28 01:30] LABS: Anion Gap 10 (3-11); BUN Creatinine Ratio 18.5 (10-20); Blood Urea Nitrogen 24 mg/dl (6-23); Calcium 9.7 mg/dl (8.5-10.1); Carbon Dioxide 23 mmol/L (21-32); Chloride 102 mmol/L (98-107); Cholesterol 99 mg/dl (0-200); Creatinine Clr Calc Pharmacy 56.9 ml/min; Est GFR (African American) 62.7 ml/min; Est GFR (Non-African American) 54.1 ml/min; Glucose 132 mg/dl (70-99(Fasting)); HDL Cholesterol 24 mg/dl; Magnesium 1.8 mg/dl (1.7-2.4); Potassium 5.2 mmol/L (3.5-5.1); Sodium 135 mmol/L (136-145); Triglycerides 386 mg/dl (0-150)
[2022-05-28 01:50] LABS: Chol HDL Ratio 4.1 (0-5); VLDL Cholesterol 77 mg/dl (0-30)
[2022-05-28] MEDS ORDERED: LORazepam 1 MG TAB PO STA (03:25)
[2022-05-28] MEDS: DICLOFENAC SOD 1% GEL 100 GM TUBE EXT SCH (05:53)
[2022-05-28] MEDS ORDERED: LACTATED RINGER'S 500 ML IV ONE (07:13)
[2022-05-28] MEDS ORDERED: ISOSORBIDE MONO EXTENDED REL 30 MG TABCR PO SCH ×2 (07:45→09:00)
[2022-05-28] MEDS: NICOTINE 14 MG/24 HR PATCH TD SCH (08:49)
[2022-05-28] MEDS: MAGNESIUM OXIDE 400 MG TAB PO SCH (08:59)
[2022-05-28] MEDS ORDERED: carvediloL 12.5 MG TAB PO SCH (09:00)
[2022-05-28] MEDS ORDERED: SERTRALINE HCL 100 MG TABLET PO SCH (09:00)
[2022-05-28] MEDS ORDERED: FLUTICASONE FUROATE 200MCG 14 PUFFS/INHALER INH SCH (09:00)
[2022-05-28] MEDS ORDERED: LANTUS PER UNIT CHARGE SQ SCH ×2 (09:00)
[2022-05-28] MEDS ORDERED: ASPIRIN 81 MG ECTAB PO SCH (09:00)
[2022-05-28] MEDS ORDERED: PANTOprazole 40 MG TAB PO SCH (09:00)
[2022-05-28] MEDS ORDERED: CYANOCOBALAMIN (B-12) 500 MCG TABLET PO SCH (09:00)
[2022-05-28] MEDS ORDERED: ATORVASTATIN 40 MG TAB PO SCH (09:00)
[2022-05-28] MEDS ORDERED: LOSARTAN POTASSIUM 50 MG TAB PO SCH (09:00)
--- NOTE | 2022-05-28 09:58 | Pharmacy Report ---
Pharmacy Glycemic Short Note 2 - Date of Service May 28, 2022 - Glycemic Short BSG Results (Last 24 hours): 05/27/22 05/27/22 05/27/22 15:23 15:30 20:02 Glucose 187 H POC Glucose 94 POC Glucose (other) 187 H 05/28/22 05/28/22 05/28/22 00:12 00:58 05:54 Glucose 132 H POC Glucose 114 H 176 H POC Glucose (other) OUTPATIENT ANTIDIABETIC REGIMEN: * Lantus 55 units SC HS * Metformin 1 g PO daily * Glipizide 5 mg PO BIDM HbA1c ordered for tomorrow AM ASSESSMENT: 05/28/22: * Fasting BSG of 176 mg/dL. Will resume basal insulin at reduced dose based on NPO status. * Lunch BSG also elevated. Will tighten novolog correction factor and carb ratio. Background: * DM is a 71 year old male presented to [facility] ED following syncopal episode while undergoing PFT testing * PMH includes T2DM (unsure of level of control - A1c pending), COPD, CAD * BSG in ED of 187 mg/dL, BSG upon admission this evening of 94 mg/dL - no insulin administered so far * Patient will be NPO after midnight pending cardiology consultation * Given recent syncopal event, current BSG < 100 mg/dL, and NPO - will hold off on basal this evening and cover with overnight Novolog PLAN FOR INPATIENT GLYCEMIC CONTROL: * Hold outpatient oral diabetes medications * Basal insulin * Lantus 25 units SQ this morning * Bolus insulin * NovoLog per scale ACHS or Q6hrs while NPO * Goal Range: Low 110 mg/dL - High 140 mg/dL * Correction Factor: 20 mg/dL/unit * Nutritional / Prandial insulin per carb ratio of 1 unit per 8 grams CHO consumed
--- NOTE | 2022-05-28 10:51 | Cardiology Consultation ---
Date of Consultation May 28, 2022 Assessment & Plan (1) Syncope: (2) Acute chest wall pain: (3) CAD (coronary artery disease): Plan Suspected vasovagal episode occurring in the setting of mild volume depletion, hyperventilated state. EKG's without acute changes. High sensitivity troponin I negative. Resting echocardiography unchanged. Telemetry benign. General measures advised. Outpatient 14-day Zio monitor being arranged. Outpatient cardiology follow-up as scheduled or as needed. Supervising Physician Co-Signing Physician Notes Patient was seen and examined, chart, medications, telemetry reviewed. Evaluation and plan as above 71-year-old with complex but stable chronic coronary artery disease and angina pattern who suffered an acute syncopal event during forced hyperventilation during pulmonary function testing. No acute cardiac etiology or decline. Echocardiogram with preserved LV systolic function. No arrhythmias on telemetry. Troponin without elevation Exam without acute findings. Minimal murmur consistent with aortic sclerosis good heart rate and blood pressure. No orthostasis. No arrhythmias on telemetry Recommendations and plan as above History of Present Illness Reason for Consultation: Bradycardia, chest pain, episode of pulselessness Requesting Physician: Megan Attending Physician: Benjamín Johnson MD History of Present Illness Mr. Kaden Badillo is a 71-year-old male with past history detailed below who is undergoing outpatient pulmonary function testing. Prior to beginning post bronchodilator FVC, patient began to feel lightheaded and dizzy. Notes feeling as though he was going to pass out and then waking up with 8 people standing around him. Per documentation, no pulse was detected. CPR was promptly initiated. AED advised no shock. Patient transported to the [facility] ER for EKG revealed normal sinus rhythm at 66 bpm with stable T wave changes laterally; no acute ST segment change. High-sensitivity troponin I negative x3 at 10.4, 12.6, 13.5. Chest x-ray revealed cardiomegaly without acute process. Continuous telemetry monitoring has demonstrated sinus throughout, with heart rates in the 60s and 70s, with occasional PACs. No significant bradycardia, pauses, high degree heart block, or ventricular arrhythmias. Patient notes sternal discomfort/tenderness following CPR, 8 out of 10 Notes drinking less water of late due to BPH with LUTS symptoms. Notes chronic right knee pain. No angina. No palpitations. No new or worsening shortness of breath. No orthopnea, PND, or peripheral edema. No fevers or chills. No hemoptysis, melena, hematochezia, or gross hematuria. Past Medical and Surgical History: ASCVD. History of NSTEMI , PCI with a bare metal stent to the OM1 on 02/03/12 at [facility]. Patent OM1 stent with mild nonobstructive CAD noted elsewhere via the [place] [facility] abnormal nuclear stress testing Diastolic congestive heart failure. Asymptomatic ventricular ectopy, with preserved LV systolic function Hypertension. Losartan discontinued in June 2021 due to orthostatic hypotension. Dyslipidemia. Hypertriglyceridemia. Mild bilateral internal carotid artery disease. Iron deficiency anemia. Past intracranial hemorrhage, requiring craniotomy, 2007 Type 2 diabetes mellitus, with retinopathy, neurological disease Prior rash, possible drug reaction to metoprolol - tolerating carvedilol History of tobacco abuse, COPD, recurrent bronchitis GERD Esophageal obstruction, Schatzki's ring Hypomagnesemia Status post elective right total knee [place] [facility]. Erectile dysfunction BPH with LUTS Mood disorder Generalized anxiety disorder Chronic low back pain. Status post 11/07/2021 right knee PRP injection by Dr. Munoz Rotator cuff surgery Sensorineural hearing loss, bilateral Laser eye surgery Carpal tunnel syndrome status post surgery Deviated nasal septum Family History: Mother with dementia. Father at 74, AAA. Brother with COPD. Brother with CAD. Social History: to Gabi. Two children. Former smoker, quit on 08/24/1988 after smoking 1 ppd x 25 years Former snuff user. Prior heavy drinker, quitting in 1992. Complete Review of Systems is as stated above, negative, or noncontributory. Allergies Allergy/AdvReac Type Severity Reaction Status Date / Time formoterol Allergy Intermediate RASH Verified 02/16/22 12:01 Penicillins Allergy Intermediate Unknown Verified 05/27/22 17:12 simvastatin Allergy Intermediate RASH Verified 02/16/22 12:01 lisinopril Allergy Unknown . Verified 05/27/22 17:12 Home Medications Medication Instructions Recorded Confirmed Type albuterol sulfate 90 mcg/actuation 2 puff inhalation Q6 PRN 02/09/19 05/27/22 History aerosol inhaler (Ventolin HFA) SOB/Wheezing,cough atorvastatin 80 mg tablet 80 mg PO QAM 02/09/19 05/27/22 History carvedilol 12.5 mg tablet 18.75 mg PO AMHS 02/09/19 05/27/22 History glipizide 10 mg tablet 5 mg PO BID 02/09/19 05/27/22 History insulin glargine 100 unit/mL 55 unit subcut HS 02/09/19 05/27/22 History subcutaneous solution (Lantus U-100 Insulin) isosorbide mononitrate 30 mg 30 mg PO QAM 02/09/19 05/27/22 History tablet,extended release 24 hr lorazepam 1 mg tablet 1 mg PO BID PRN anxiety/insomnia 02/09/19 05/27/22 History metformin 1,000 mg tablet 1,000 mg PO BIDM 02/09/19 05/27/22 History nitroglycerin 0.4 mg sublingual 0.4 mg sublingual UD PRN chesst 02/09/19 05/27/22 History tablet pain pantoprazole 40 mg tablet,delayed 40 mg PO DAILY 02/09/19 05/27/22 History release aspirin 81 mg tablet,delayed 81 mg PO QAM 03/08/19 05/27/22 History release hydrocodone 5 mg-acetaminophen 325 1 tab PO Q6 PRN Pain, Moderate 03/08/19 05/27/22 History mg tablet mecobalamin (vitamin B12) 1,000 1,000 mcg PO DAILY 09/25/20 05/27/22 History mcg chewable tablet hydroxyzine HCl 50 mg tablet 50 mg PO Q6 PRN Anxiety 02/01/21 05/27/22 History polyethylene glycol 3350 17 17 g PO UD 02/01/21 05/27/22 History gram/dose oral powder (Miralax) sertraline 100 mg tablet 100 mg PO DAILY 02/01/21 05/27/22 History budesonide 180 mcg/actuation 2 inh inhalation BID 05/27/22 05/27/22 History breath activated powder inhaler (Pulmicort Flexhaler) budesonide 180 mcg/actuation 2 inh inhalation BID 05/27/22 05/27/22 History breath activated powder inhaler (Pulmicort Flexhaler) ferrous sulfate 325 mg (65 mg 325 mg PO Q OTHER DAY 05/27/22 05/27/22 History iron) tablet losartan 100 mg tablet 50 mg PO DAILY 05/27/22 05/27/22 History magnesium oxide 400 mg PO AMHS 05/27/22 05/27/22 History diclofenac sodium 1 % topical gel 4 g EXT Q6 PRN pain #100 grams 05/28/22 Rx (Voltaren Arthritis Pain) nicotine 7 mg/24 hr daily 14 mg transdermal QAM #14 ea 05/28/22 Rx transdermal patch Patient History Medical History BPH (benign prostatic hypertrophy) CAD (coronary artery disease) COPD (chronic obstructive pulmonary disease) Coronary artery disease, occlusive "s/p stent" DM type 2 (diabetes mellitus, type 2) GERD (gastroesophageal reflux disease) 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 Lumbago Mood disorder Sensorineural hearing loss of both ears Tobacco use disorder Surgical History H/O inguinal hernia repair History of carpal tunnel surgery S/P cardiac cath S/P total knee arthroplasty Stented coronary artery Family History Other COPD (chronic obstructive pulmonary disease) Diabetes Heart disease Rheumatoid arthritis Social History Smoking Status: Unknown if ever smoked Tobacco Type: Cigarettes Number of Years Since Quit: 31; Do You Dip or Chew Tobacco: Yes; Tobacco Cessation Education Requested by Patient: No Hx Alcohol Use: No Hx Substance Use: No Preferred Language: Welsh Communication Ability: Effective Mortuary Technician Required: No Beliefs That Will Affect Care: None Current Living Situation: Spouse Other Information That Helps Us Care for You: No Feels Safe at Home: Yes Safety Concerns: Feels Safe At This Time Assistive Devices: Cane Review of Systems Review of Systems: Complete Review of Systems is as stated above, negative, or noncontributory Physical Exam Physical Exam: General: NAD. A&Ox3. [place] HEENT: Conjunctiva are pale. Sclera clear. No JVD. No hepatojugular reflux. Mucous membranes are dry. Lungs: Faint anterior expiratory wheeze. No rales. Cardiac: Irregular with occasional ectopic beats. No murmurs. No rubs. or gallops Abdomen: +BS. Soft. Nontender. No overt ascites. Extremities: No edema. No clubbing. No cyanosis Neuro: Grossly normal exam Psych: Appropriate affect and insight. Results & Data ([facility]) Vital Signs (Past 12 Hours) Vital Signs Temp Pulse Pulse Resp BP Pulse Ox O2 Del Method 05/28/22 08:00 36.6 C 62 20 156/69 H 95 Room Air 05/28/22 06:01 186/93 H 05/28/22 05:19 75 175/81 H 05/28/22 04:31 211/113 H 05/28/22 03:17 36.6 C 68 18 203/99 H 92 Room Air 05/27/22 22:59 36.5 C 71 20 118/68 94 Room Air 05/27/22 23:18 73 Laboratory Results Cardiac Enzymes 05/27/22 05/27/22 05/28/22 Range/Units 15:23 19:42 00:58 AST 35 (13-39) U/L Troponin I High Sens 10.4 12.6 13.5 (0-20) pg/ml Lipids 05/28/22 Range/Units 00:58 Triglycerides 386 H (0-150) mg/dl Cholesterol 99 (0-200) mg/dl HDL Cholesterol 24 mg/dl Cholesterol/HDL Ratio 4.1 (0-5) CBC 05/27/22 05/28/22 Range/Units 15:23 00:58 WBC 8.11 10.85 H (4.8-10.8) K/ul RBC 4.25 L 3.86 L (4.63-6.08) M/uL Hgb 14.0 12.7 L (14.0-18.0) g/dl Hct 40.6 37.8 L (40.1-51.0) % Plt Count 212 180 (130-400) K/uL Neut # (Auto) 4.99 (1.4-6.5) K/uL Lymph # (Auto) 1.57 (1.2-3.4) K/uL [place] # (Auto) 0.87 H (0.24-0.82) K/uL Eos # (Auto) 0.48 (0-0.50) K/uL Baso # (Auto) 0.12 (0-0.2) K/uL Comprehensive Metabolic Panel 05/27/22 05/28/22 Range/Units 15:23 00:58 Sodium 134 L 135 L (136-145) mmol/L Potassium 5.1 5.2 H (3.5-5.1) mmol/L Chloride 100 102 (98-107) mmol/L Carbon Dioxide 22 23 (21-32) mmol/L BUN 19 24 H (6-23) mg/dl Creatinine 1.24 1.30 (0.6-1.4) mg/dl Glucose 187 H 132 H (70-99(Fasting)) mg/dl Calcium 10.0 9.7 (8.5-10.1) mg/dl AST 35 (13-39) U/L ALT 38 (7-52) U/L Alkaline Phosphatase 58 (34-104) U/L Total Protein 7.2 (6.0-8.3) gm/dl Albumin 4.3 (3.4-5.0) gm/dl Intake and Output 05/27/22 05/28/22 05/28/22 22:59 06:59 14:59 Intake Total 960 / 1140 180 / 1140 Output Total 450 / 450 200 / 200 Balance 960 / 690 -270 / 690 -200 / -200 Intake: IV 600 / 600 Acetaminophen 1,000 mg In 100 100 / 100 ml @ 400 mls/hr IV NOW STA Rx#: [id number] Sodium Chloride 0.9% 500 ml @ 500 / 500 999 mls/hr IV .Q31M ONE Rx#: [id number] Oral 360 / 540 180 / 540 Output: Urine 450 / 450 200 / 200 Other: Other Intake Source Patient is NPO Weight 92.8 kg Weight Measurement Method Built in [facility] Diagnostic Findings April 29, 2022 TTE Interpretation Summary (as per Dr. Banks): The LV wall thickness is moderately increased (concentric). The left ventricular wall motion is normal. Calculated LV ejection Fraction = 64% (bi-plane method of discs). The left ventricular diastolic function is mildly abnormal (grade I). Mild mitral regurgitation is present. Mild aortic valve sclerosis is present. Aortic stenosis is absent. April 29, 2022 Lexiscan Interpretation Summary (as per Dr. Banks): Lexiscan nuclear cardiac stress test negative for ischemia. Gated SPECT imaging reveals normal myocardial thickening and wall motion. The left ventricular ejection fraction was calculated to be 64%. The stress EKG response is nondiagnostic due to the baseline repolarization changes which did not change significantly with pharmacologic stress. No significant arrhythmias were observed. EKG on presentation revealed normal sinus rhythm at 66 bpm with stable T wave abnormality laterally. Second EKG performed on May 27, 2022 revealed sinus rhythm at 69 bpm with premature atrial complexes, stable T wave abnormality laterally. Continuous telemetry monitoring reveals sinus rhythm in the 60s and 70s with occasional PACs. May 28, 2022 TTE Interpretation Summary ([facility], Dr. Astorga): Compared to prior study, there is no significant change. Normal size left ventricle. Moderate concentric LVH. Normal LV wall motion. Ejection fraction 60 to 65%. Grade 1 diastolic dysfunction. Moderate aortic valve sclerosis, without significant stenosis. No pericardial effusion. (1) Syncope Syncope type: vasovagal syncope Qualified Code(s): R55 - Syncope and collapse
--- NOTE | 2022-05-28 11:36 | Discharge Summary ---
Date of Service May 28, 2022 Admission HPI Per Admitting Provider This is a 71 yo M with PMhx of chronic diastolic heart failure (EF 55-60%, TTE January 2021), CAD status post stent, HTN, hyperlipidemia, PVD, history cerebellar hemorrhage status post surgery (2007), DM2 insulin requiring, COPD, chronic hyponatremia, chronic anemia (baseline hemoglobin 12-13), BPH, past tobacco/alcohol abuse as per records. Pt had a syncopal episode while he was undergoing PFT testing at outpatient facility. Upon examination, no pulse was detected and chest compressions were started and lasted about 45 seconds per nursing report. AED was placed on the patients chest and no shock was advised. Initially he was called as a heart alert to the ER, EKG showed normal sinus rhythm with lateral T wave flattening, which appears to be old finding, his blood pressure 170/50, HR in 50s initially. Currently his BP is 94/55 with HR 68. He denies any chest pain, palpitations, flutter lightheadedness or dizziness, shortness of breath and does not typically wear oxygen at baseline. He feels that his chest is sore as he points to his sternum. He has never had an episode like this before. His , daughter and son are present at bedside. Chest x-ray 1 view does not show obvious rib fractures. Admission Exam Per Admitting Provider General: awake, alert, no apparent distress Head: Normocephalic, atraumatic ENT: PERRL, EOMI, no pharyngeal exudate, mucous membranes moist Chest: Clear to auscultation, on room air, no adventitious breath sounds, no obvious ecchymosis, tenderness is reproducible Cardiac: Regular rate and rhythm, no murmur, no JVD, normal peripheral pulses, good capillary refill Abdominal: NABS x 4 quadrants, soft, nondistended, nontender to palpation, no rebound or guarding Extremities: Normal inspection, no peripheral edema or erythema, calfs nontender to palpation Psych: Normal mood and affect Neuro: AAO x 3, strength intact bilaterally and rated 5/5, no motor deficits, speech is clear, no peripheral sensory deficits Principal Diagnosis vasovagal episode Discharge Exam General: awake, alert, no apparent distress Head: Normocephalic, atraumatic ENT: PERRL, EOMI, no pharyngeal exudate, mucous membranes moist Chest: Clear to auscultation, on room air, no adventitious breath sounds, no obvious ecchymosis, tenderness is reproducible Cardiac: Regular rate and rhythm, no murmur, no JVD, normal peripheral pulses, good capillary refill Abdominal: NABS x 4 quadrants, soft, nondistended, nontender to palpation, no rebound or guarding Extremities: Normal inspection, no peripheral edema or erythema, calfs nontender to palpation Psych: Normal mood and affect Neuro: AAO x 3, strength intact bilaterally and rated 5/5, no motor deficits, speech is clear, no peripheral sensory deficits Discharge Data Allergies Allergy/AdvReac Type Severity Reaction Status Date / Time formoterol Allergy Intermediate RASH Verified 02/16/22 12:01 Penicillins Allergy Intermediate Unknown Verified 05/27/22 17:12 simvastatin Allergy Intermediate RASH Verified 02/16/22 12:01 lisinopril Allergy Unknown . Verified 05/27/22 17:12 Consultations 05/27/22 16:48 ED Decision to Admit Stat 05/27/22 19:06 Consult Cardiology Routine Hospital Course (1) Syncope and collapse: - Admit to tele for observation for r/o for syncopal episode - likely vasovagal - Cardiology consultation for presumed episode of syncope, vasovagal with pulselessness - highly possible that the patient BP or HR was so low from vasovagal response that pulse was not felt but was not truly in cardiac arrest. - Trend cardiac biomarkers, initial set was negative - subsequent negative as well - EKG reviewed as above - Check 2 D echo, last reviewed showing preserved EF of 55-60% in January 2021, grade 1 diastolic dysfunction - repeat TTE unchanged from prior - Follow labs - wnl - Evaluated by Cardiology and patient will be discharged with plan for Zio Patch and outpatient follow up - ok for discharge home (2) COPD (chronic obstructive pulmonary disease): - Hx of such, continue on home inhalers - Outpatient PFTs as above - CXR 1 view without acute abnormalities, if worsening chest pain need repeat imaging to confirm no fractures. - Does not require supplemental O2 at baseline - Smoking cessation encouraged, nicotine patch ordered (3) CAD (coronary artery disease): - Continue on home medications, await cardiology recommendations - Lipid panel with am labs - Continue baby aspirin, atorvastatin, carvedilol, Imdur, losartan (4) DM type 2 (diabetes mellitus, type 2): - Cont Lantus 55 U QPM, ISS with accuchecks achs - Holding glipizide, metformin DVT ppx: - teds, scds CODE: Full code Dispo: From home, likely to remain in the hospital x 1-2 days Total Time Total Time Spent Total Time Spent (In Minutes): 27 Total Time Includes: Examination of the Patient, Discharge Planning, Medication Reconciliation and Communication With Other Providers Discharge Plan Discharge Items Patient Disposition: Home - Self-Care Reason For Visit: SYNCOPAL EPISODE Discharge Diagnosis: Vasovagal episode Activity: Resume your previous activity Non-emergency contact: Primary Care Provider and Electric Tripper Machine Operator Call non-emergency contact if: you have any medication questions and your symptoms worsen Follow-up/Referrals: Eddie Ruffin MD [Primary Care Provider] - Memo Astorga MD [Physician] - Diet: Carb Consistent or DM2 Addtl Attending Provider Instructions: You were admitted for an episode of lost consciousness during pulmonary function testing. There was concern for a cardiac event but all cardiac parameters were within normal limits and you were seen by Cardiology who suspect this was a Vasovagal episode that is common and not concerning for your heart. You should follow up with your primary care doctor and Electric Tripper Machine Operator on discharge. You will have a Zio patch that will monitor your heart rhythm all the time and should follow up with Cardiology about this study. Pending Studies at Discharge: No Stand-Alone Forms: [facility] [employer], Smoking Cessation Medications and DC Order Prescriptions: New nicotine 7 mg/24 hr Patch 24 Hour 14 mg transdermal QAM Qty: 14 0RF diclofenac sodium [Voltaren Arthritis Pain] 1 % Gel 4 g EXT Q6 PRN (Reason: pain) Qty: 100 0RF Continued mecobalamin (vitamin B12) 1,000 mcg tablet,chewable 1,000 mcg PO DAILY atorvastatin 80 mg tablet 80 mg PO QAM carvedilol 12.5 mg tablet 18.75 mg PO AMHS Rx Instructions: 1 & 1/2 tablet dose insulin glargine [Lantus U-100 Insulin] 100 unit/mL solution 55 unit subcut HS glipizide 10 mg tablet 5 mg PO BID isosorbide mononitrate 30 mg tablet extended release 24 hr 30 mg PO QAM pantoprazole 40 mg tablet,delayed release (DR/EC) 40 mg PO DAILY metformin 1,000 mg tablet 1,000 mg PO BIDM nitroglycerin 0.4 mg tablet, sublingual 0.4 mg sublingual UD PRN (Reason: chesst pain) Rx Instructions: place 1 tab under tongue as needed for chest pain, may repeat 3 times if chest pain continues call 911 lorazepam 1 mg tablet 1 mg PO BID PRN (Reason: anxiety/insomnia) Rx Instructions: Take at noon and bedtime albuterol sulfate [Ventolin HFA] 90 mcg/actuation HFA aerosol inhaler 2 puff inhalation Q6 PRN (Reason: SOB/Wheezing,cough) hydrocodone-acetaminophen 5-325 mg tablet 1 tab PO Q6 PRN (Reason: Pain, Moderate) aspirin 81 mg Tablet,Delayed Release (Dr/Ec) 81 mg PO QAM sertraline 100 mg tablet 100 mg PO DAILY hydroxyzine HCl 50 mg tablet 50 mg PO Q6 PRN (Reason: Anxiety) polyethylene glycol 3350 [Miralax] 17 gram/dose Powder 17 g PO UD Rx Instructions: use 1 capful up to 3 times a day for constipation Pulmicort Flexhaler 180 mcg/actuation aerosol powdr breath activated 2 inh INHALATION BID losartan 100 mg tablet 50 mg PO DAILY ferrous sulfate 325 mg (65 mg iron) Tablet 325 mg PO Q OTHER DAY magnesium oxide 400 mg magnesium Capsule 400 mg PO AMHS Pulmicort Flexhaler 180 mcg/actuation aerosol powdr breath activated 2 inh INHALATION BID Discharge Orders: Discharge Order (Routine); Ordered 05/28/22 Ordered By: Benjamín Johnson Admission Data Admit Date/Time: 05/27/22 18:54 Attending Provider: Benjamín Johnson Admit Provider: Benjamín Johnson Primary Care Provider: Eddie Ruffin Other Providers: Yury Lopez ; Memo Astorga
[2022-05-28 11:56] LABS: Estimated Average Glucose 146 mg/dl; Hemoglobin A1C 6.7 % (4.5-5.6)
[2022-05-29] MEDS ORDERED: FERROUS SULFATE 325 MG TAB PO SCH (09:00)
[2022-05-29] MEDS ORDERED: ISOSORBIDE MONO EXTENDED REL 30 MG TABCR PO SCH (09:00)
--- NOTE | 2022-05-29 22:01 | Electrocardiogram Report ---
Test Reason : Blood Pressure : / mmHG Vent. Rate : 066 BPM Atrial Rate : 066 BPM P-R Int : 182 ms QRS Dur : 080 ms QT Int : 410 ms P-R-T Axes : -06 -19 105 degrees QTc Int : 429 ms Normal sinus rhythm T wave abnormality, consider lateral ischemia Possible Inferior infarct Abnormal ECG When compared with ECG of 02-FEB-2021 09:42, Nonspecific T wave abnormality no longer evident in Anterior leads Confirmed by Kevin Larson ([id number]) on 05/29/2022 10:01:13 PM Referred By: Confirmed By:Kevin Larson
--- NOTE | 2022-05-29 22:36 | Electrocardiogram Report ---
Test Reason : Blood Pressure : / mmHG Vent. Rate : 069 BPM Atrial Rate : 069 BPM P-R Int : 182 ms QRS Dur : 074 ms QT Int : 402 ms P-R-T Axes : 014 -11 129 degrees QTc Int : 430 ms Poor data quality, interpretation may be adversely affected Sinus rhythm with Premature atrial complexes T wave abnormality, consider lateral ischemia Abnormal ECG When compared with ECG of 27-MAY-2022 15:22, Premature atrial complexes are now Present Confirmed by Kevin Larson ([id number]) on 05/29/2022 10:36:39 PM Referred By: REFERRED SELF Confirmed By:Kevin Larson
== END 2022-05-28 13:49 | disposition home health service (06) | DRG 312 ==
LOC: ED 15:16 → 2S 18:36

== ENCOUNTER 2022-05-31 11:02 | Inpatient (IN) ==
[2022-05-31] MEDS ORDERED: fentaNYL citrate 100 MCG/2 ML VIAL IV STA ×2 (11:17→13:51)
[2022-05-31 11:50] LABS: Basophils # (auto) 0.06 K/uL (0-0.2); Basophils % (auto) 0.7 %; Eosinophils # (auto) 0.32 K/uL (0-0.50); Eosinophils % (auto) 3.6 %; Hematocrit (blood only) 36.3 % (40.1-51.0); Hemoglobin 12.1 g/dl (14.0-18.0); Immature Granulocytes # (auto) 0.04 K/uL (0.00-0.02); Immature Granulocytes % (auto) 0.4 %; Lymphocytes # (auto) 1.34 K/uL (1.2-3.4); Lymphocytes % (auto) 15.1 %; Mean Corpuscular Hemoglobin 32.6 pg (25.0-34.0); Mean Corpuscular Hgb Conc 33.3 g/dL (32.0-36.0); Mean Corpuscular Volume 97.8 fL (80.0-100.0); Mean Platelet Volume 9.6 fL (9.4-12.4); Monocytes % (auto) 12.4 %; Neutrophils # (auto) 6.04 K/uL (1.4-6.5); Neutrophils % (auto) 67.8 %; Platelet Count 174 K/uL (130-400); RDW Coefficient of Variation 12.9 % (11.5-14.5); RDW Standard Deviation 45.8 fL (36.4-46.3); Red Blood Count 3.71 M/uL (4.63-6.08)
[2022-05-31 11:52] LABS: iSTAT Creatinine 1.1 mg/dl (0.6-1.3); iSTAT Hemoglobin 11.6 g/dl (14.0-18.0); iSTAT Ionized Calcium 1.2 mmol/l (1.12-1.32); iSTAT Potassium 4.7 mmol/L (3.3-5.0)
[2022-05-31 12:01] LABS: Prothrombin Time 10.9 Seconds (9.0-12.0)
[2022-05-31] MEDS ORDERED: OPTIRAY 320 500ml IV ONE (12:02)
--- NOTE | 2022-05-31 12:11 | Emergency Department Note ---
Impression & Plan Ribs, multiple fractures, Acute chest wall pain, Elevated lactic acid level ED Provider Note Provider: Jules Ramires MD DATE OF SERVICE: 05/31/2022 CHIEF COMPLAINT: Lightheaded, chest pain HISTORY OF PRESENT ILLNESS: Patient is a 71-year-old gentleman history of COPD, CAD, diabetes, recent admission after a syncopal event last week and brief episode of CPR presenting referred from the outpatient cardiology office today. Received a call from Dr. Gupta of cardiology there states the patient came for Holter monitor placement. Was noted to be hypotensive and ventura and ill-appearing. IV access was obtained and was summoned. EKG was reportedly unchanged on his review. Patient had negative stress test about a month ago. Patient upon arrival here blood pressures improved with about 600 mL of normal saline given by EMS. Patient complaining of some central chest discomfort and feeling weak and lightheaded. Denies significant abdominal pain or complaints. Patient denies new falls but has felt lightheaded. He denies syncopized at home. REVIEW OF SYSTEMS: A total of 10 review of systems was obtained and negative except as stated above in the HPI. PAST MEDICAL HISTORY: As noted above MEDICATIONS: Reviewed home medications include insulin as well as aspirin. SOCIAL HISTORY: Distant former smoker, lives at home with PHYSICAL EXAM: GENERAL: alert and oriented in no acute distress on stretcher although fatigued and pale appearing Head: normocephalic and atraumatic EYES: No injection, discharge or icterus. PERRL NECK: Trachea midline. Supple. ENT: Mucous membranes pink and moist. LUNGS: Airway patent. No retractions. Breath sounds clear with good air entry bilaterally. HEART: Regular rate and rhythm. Fair amount of mid chest wall tenderness ABDOMEN: Soft and non-tender, without guarding or rebound. SKIN: Acyanotic, warm, dry, without rashes EXTREMITIES: Without swelling, tenderness or deformity NEUROLOGICAL: No focal deficits. No aphasia. No facial droop or slurred speech. Normal strength and tone in the extremities. Sensation to gross touch normal. Ambulatory. EK bpm normal sinus rhythm. No PVC or PAC. No acute ST segment elevation with lateral and some high inferior T wave inversions. QTc 424. CONTINUOUS CARDIAC MONITORING: was ordered and showed a heart rate of 60s-70s bpm in NSR Patient's laboratory studies and imaging reviewed. Differential Infection, dehydration, metabolic abnormality, hypo/hyperglycemia, electrolyte disturbance, anemia, hypoxia, cardiac sources, intracerebral event, toxicologic, neurologic, as well as other pathologies. includes IMPRESSION/MEDICAL DECISION MAKING: Patient weak and fatigued with central chest discomfort. Recent admission after syncope and CPR here with cardiac evaluation. Hypotensive in the prehospital setting and in the clinic setting. Pressure improved with fluids. CT chest completed exclude intrathoracic issue such as effusion, PE, rib fractures leading to his pain. Patient with a negative COVID test today. No leukocytosis. Patient's hemoglobin stable at 12.1. Slight hyponatremia 133. No significant renal dysfunction. Lactate elevated 3.6. Did receive 600 mils of normal saline prior to arrival as well as a liter here. Troponin somewhat decreased to 8.3 and not elevated. Does not seem to be in heart block at this point. No evidence of hepatitis. Procalcitonin fairly low and low suspicion for bacterial infection. Negative urinalysis. CT of the chest without evidence of pneumonia or PE but evidence of 4 anterior right-sided rib fracture without pneumothorax. Pain poorly controlled on several doses of fentanyl. Decreased intake according to patient and family and believe lactate elevation likely secondary decreased intake and doubt infection. 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 Patient in agreement. Hospitalist was contacted. DIAGNOSIS: Elevated lactate, multiple rib fractures, chest pain DISPOSITION: Hospitalist will evaluate Patient was agreeable with this plan. Past Med/Surg History Medical History (Updated 05/31/22 @ 16:00 by Jules Ramires M.D.) BPH (benign prostatic hypertrophy) CAD (coronary artery disease) COPD (chronic obstructive pulmonary disease) Coronary artery disease, occlusive "s/p stent" DM type 2 (diabetes mellitus, type 2) GERD (gastroesophageal reflux disease) 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 Hypotension Lumbago Mood disorder Ribs, multiple fractures Sensorineural hearing loss of both ears Tobacco use disorder Surgical History H/O inguinal hernia repair History of carpal tunnel surgery S/P cardiac cath S/P total knee arthroplasty Stented coronary artery Family History Other COPD (chronic obstructive pulmonary disease) Diabetes Heart disease Rheumatoid arthritis Social History Smoking Status: Unknown if ever smoked Tobacco Type: Cigarettes Number of Years Since Quit: 31; Hx Alcohol Use: No Hx Substance Use: No Preferred Language: [place] Korean Communication Ability: Effective Check Cashier Required: No Beliefs That Will Affect Care: None Current Living Situation: Spouse Feels Safe at Home: Yes Assistive Devices: Cane Allergies Allergies Allergy/AdvReac Type Severity Reaction Status Date / Time formoterol Allergy Intermediate RASH Verified 02/16/22 12:01 Penicillins Allergy Intermediate Unknown Verified 05/27/22 17:12 simvastatin Allergy Intermediate RASH Verified 02/16/22 12:01 lisinopril Allergy Unknown . Verified 05/27/22 17:12 Home Meds Home Medications Medication Instructions Recorded Confirmed albuterol sulfate 90 mcg/actuation 2 puff inhalation Q6 PRN 02/09/19 05/31/22 aerosol inhaler (Ventolin HFA) SOB/Wheezing,cough atorvastatin 80 mg tablet 80 mg PO QAM 02/09/19 05/31/22 carvedilol 12.5 mg tablet 18.75 mg PO AMHS 02/09/19 05/31/22 glipizide 10 mg tablet 5 mg PO BID 02/09/19 05/31/22 insulin glargine 100 unit/mL 55 unit subcut HS 02/09/19 05/31/22 subcutaneous solution (Lantus U-100 Insulin) isosorbide mononitrate 30 mg 30 mg PO QAM 02/09/19 05/31/22 tablet,extended release 24 hr lorazepam 1 mg tablet 1 mg PO BID PRN anxiety/insomnia 02/09/19 05/31/22 metformin 1,000 mg tablet 1,000 mg PO BIDM 02/09/19 05/31/22 nitroglycerin 0.4 mg sublingual 0.4 mg sublingual UD PRN chesst 02/09/19 1 tablet pain pantoprazole 40 mg tablet,delayed 40 mg PO DAILY 02/09/19 05/31/22 release aspirin 81 mg tablet,delayed 81 mg PO QAM 03/08/19 05/31/22 release hydrocodone 5 mg-acetaminophen 325 1 tab PO Q6 PRN Pain, Moderate 03/08/19 05/31/22 mg tablet mecobalamin (vitamin B12) 1,000 1,000 mcg PO DAILY 09/25/20 05/31/22 mcg chewable tablet hydroxyzine HCl 50 mg tablet 50 mg PO Q6 PRN Anxiety 02/01/21 05/31/22 polyethylene glycol 3350 17 17 g PO UD 02/01/21 05/31/22 gram/dose oral powder (Miralax) sertraline 100 mg tablet 100 mg PO DAILY 02/01/21 05/31/22 budesonide 180 mcg/actuation 2 inh inhalation BID 05/27/22 05/31/22 breath activated powder inhaler (Pulmicort Flexhaler) budesonide 180 mcg/actuation 2 inh inhalation BID 05/27/22 05/31/22 breath activated powder inhaler (Pulmicort Flexhaler) ferrous sulfate 325 mg (65 mg 325 mg PO Q OTHER DAY 05/27/22 05/31/22 iron) tablet losartan 100 mg tablet 50 mg PO DAILY 05/27/22 05/31/22 magnesium oxide 400 mg PO AMHS 05/27/22 05/31/22 Previous Rx's Medication Instructions Recorded diclofenac sodium 1 % topical gel 4 g EXT Q6 PRN pain #100 grams 05/28/22 (Voltaren Arthritis Pain) nicotine 7 mg/24 hr daily 14 mg transdermal QAM #14 ea 05/28/22 transdermal patch Results & Data (ED) Vital Signs Vital Signs - 24 hr 05/31/22 11:08 05/31/22 11:37 05/31/22 13:00 Temperature 36.4 C L Temperature Source Oral Pulse Rate 62 62 Pulse Rate [Finger] 62 Respiratory Rate 20 20 20 Blood Pressure 120/66 Blood Pressure [Right Arm] 125/63 Blood Pressure Mean 84 Blood Pressure Mean [Right Arm] 83 Blood Pressure Position [Right Arm] Pulse Oximetry 96 96 94 Oxygen Delivery Method Nasal Cannula Nasal Cannula Room Air Oxygen Flow Rate 2 2 Sepsis Recent Fever Within 48 Hours No Sepsis New/Unexplained Change in Mental Status No Sepsis Action Taken by Nursing No Action Required 05/31/22 12:45 Temperature Temperature Source Pulse Rate Pulse Rate [Finger] 65 Respiratory Rate 19 Blood Pressure Blood Pressure [Right Arm] 149/78 H Blood Pressure Mean Blood Pressure Mean [Right Arm] 101 Blood Pressure Position [Right Arm] Standing Pulse Oximetry 95 Oxygen Delivery Method Room Air Oxygen Flow Rate Sepsis Recent Fever Within 48 Hours Sepsis New/Unexplained Change in Mental Status Sepsis Action Taken by Nursing Laboratory Data Result diagrams: 05/31/22 11:15 05/31/22 11:15 Lab Results 05/31/22 05/31/22 05/31/22 Range/Units 11:15 11:15 11:15 WBC (4.8-10.8) K/ul RBC (4.63-6.08) M/uL Hgb (14.0-18.0) g/dl POC Hgb (14.0-18.0) g/dl Hct (40.1-51.0) % POC Hct (42-52) % MCV (80.0-100.0) fL MCH (25.0-34.0) pg MCHC (32.0-36.0) g/dL RDW Std Deviation (36.4-46.3) fL RDW Coeff of Alesia (11.5-14.5) % Plt Count (130-400) K/uL MPV (9.4-12.4) fL Immature Gran % (Auto) % Neut % (Auto) % Lymph % (Auto) % [place] % (Auto) % Eos % (Auto) % Baso % (Auto) % Neut # (Auto) (1.4-6.5) K/uL Lymph # (Auto) (1.2-3.4) K/uL [place] # (Auto) (0.24-0.82) K/uL Eos # (Auto) (0-0.50) K/uL Baso # (Auto) (0-0.2) K/uL Immature Gran # (Auto) (0.00-0.02) K/uL PT 10.9 (9.0-12.0) Seconds INR 1.0 (0.9-1.1) POC Sodium (135-144) mmol/L Sodium 133 L (136-145) mmol/L POC Potassium (3.3-5.0) mmol/L Potassium 4.5 (3.5-5.1) mmol/L POC Chloride (101-112) mmol/L Chloride 101 (98-107) mmol/L Carbon Dioxide 24 (21-32) mmol/L POC Total CO2 (24-31) mmol/L Anion Gap 8 (3-11) POC Anion Gap (16-25) mmol/L POC BUN (7-18) mg/dl BUN 20 (6-23) mg/dl Creatinine 1.10 (0.6-1.4) mg/dl POC Creatinine (0.6-1.3) mg/dl Est Cr Clr Drug Dosing 68.2 ml/min Est GFR ( Amer) 76.8 ml/min Est GFR (Non-Af Amer) 66.2 ml/min BUN/Creatinine Ratio 18.2 (10-20) Glucose 168 H (70-99(Fasting)) mg/dl POC Glucose (other) (70-99) mg/dl Lactate (0.4-2.0) mmol/L Calcium 9.0 (8.5-10.1) mg/dl POC Ioniz Calcium Amando (1.12-1.32) mmol/l Magnesium 1.7 (1.7-2.4) mg/dl Total Bilirubin 0.7 (0.2-1.0) mg/dl AST 14 (13-39) U/L ALT 20 (7-52) U/L Alkaline Phosphatase 50 (34-104) U/L Troponin I High Sens 8.3 D (0-20) pg/ml Total Protein 6.5 (6.0-8.3) gm/dl Albumin 3.7 (3.4-5.0) gm/dl Globulin 2.8 (2.5-4.0) gm/dl Albumin/Globulin Ratio 1.3 (0.9-2) Procalcitonin < 0.05 (0-0.5) ng/ml TSH (0.300-4.500) uIu/ml Free T4 (0.61-1.60) ng/dl Urine Color Urine Appearance (Clear) Urine pH (4.5-7.5) Ur Specific [place] (1.000-1.030) Urine Protein (Negative) Urine Glucose (UA) (Negative) Urine Ketones (Negative) Urine Blood (Negative) Urine Nitrite (Negative) Urine Bilirubin (Negative) Urine Urobilinogen (Negative) Ur Leukocyte Esterase (Negative) Urine WBC (Auto) (0-5) /hpf Urine RBC (Auto) (0-4) /hpf U Hyaline Cast (Auto) (0-5) /lpf U Epithel Cells (Auto) (0-5) /lpf Urine Bacteria (Auto) (Negative) SARS-CoV-2, RNA, NAAT (NEGATIVE) 05/31/22 05/31/22 05/31/22 Range/Units 11:15 11:15 11:15 WBC 8.90 (4.8-10.8) K/ul RBC 3.71 L (4.63-6.08) M/uL Hgb 12.1 L (14.0-18.0) g/dl POC Hgb (14.0-18.0) g/dl Hct 36.3 L (40.1-51.0) % POC Hct (42-52) % MCV 97.8 (80.0-100.0) fL MCH 32.6 (25.0-34.0) pg MCHC 33.3 (32.0-36.0) g/dL RDW Std Deviation 45.8 (36.4-46.3) fL RDW Coeff of Alesia 12.9 (11.5-14.5) % Plt Count 174 (130-400) K/uL MPV 9.6 (9.4-12.4) fL Immature Gran % (Auto) 0.4 % Neut % (Auto) 67.8 % Lymph % (Auto) 15.1 % [place] % (Auto) 12.4 % Eos % (Auto) 3.6 % Baso % (Auto) 0.7 % Neut # (Auto) 6.04 (1.4-6.5) K/uL Lymph # (Auto) 1.34 (1.2-3.4) K/uL [place] # (Auto) 1.10 H (0.24-0.82) K/uL Eos # (Auto) 0.32 (0-0.50) K/uL Baso # (Auto) 0.06 (0-0.2) K/uL Immature Gran # (Auto) 0.04 H (0.00-0.02) K/uL PT (9.0-12.0) Seconds INR (0.9-1.1) POC Sodium (135-144) mmol/L Sodium (136-145) mmol/L POC Potassium (3.3-5.0) mmol/L Potassium (3.5-5.1) mmol/L POC Chloride (101-112) mmol/L Chloride (98-107) mmol/L Carbon Dioxide (21-32) mmol/L POC Total CO2 (24-31) mmol/L Anion Gap (3-11) POC Anion Gap (16-25) mmol/L POC BUN (7-18) mg/dl BUN (6-23) mg/dl Creatinine (0.6-1.4) mg/dl POC Creatinine (0.6-1.3) mg/dl Est Cr Clr Drug Dosing ml/min Est GFR ( Amer) ml/min Est GFR (Non-Af Amer) ml/min BUN/Creatinine Ratio (10-20) Glucose (70-99(Fasting)) mg/dl POC Glucose (other) (70-99) mg/dl Lactate 3.6 H* (0.4-2.0) mmol/L Calcium (8.5-10.1) mg/dl POC Ioniz Calcium Amando (1.12-1.32) mmol/l Magnesium (1.7-2.4) mg/dl Total Bilirubin (0.2-1.0) mg/dl AST (13-39) U/L ALT (7-52) U/L Alkaline Phosphatase (34-104) U/L Troponin I High Sens (0-20) pg/ml Total Protein (6.0-8.3) gm/dl Albumin (3.4-5.0) gm/dl Globulin (2.5-4.0) gm/dl Albumin/Globulin Ratio (0.9-2) Procalcitonin (0-0.5) ng/ml TSH 6.038 H (0.300-4.500) uIu/ml Free T4 1.02 (0.61-1.60) ng/dl Urine Color Urine Appearance (Clear) Urine pH (4.5-7.5) Ur Specific [place] (1.000-1.030) Urine Protein (Negative) Urine Glucose (UA) (Negative) Urine Ketones (Negative) Urine Blood (Negative) Urine Nitrite (Negative) Urine Bilirubin (Negative) Urine Urobilinogen (Negative) Ur Leukocyte Esterase (Negative) Urine WBC (Auto) (0-5) /hpf Urine RBC (Auto) (0-4) /hpf U Hyaline Cast (Auto) (0-5) /lpf U Epithel Cells (Auto) (0-5) /lpf Urine Bacteria (Auto) (Negative) SARS-CoV-2, RNA, NAAT (NEGATIVE) 05/31/22 05/31/22 05/31/22 Range/Units 11:24 11:38 12:47 WBC (4.8-10.8) K/ul RBC (4.63-6.08) M/uL Hgb (14.0-18.0) g/dl POC Hgb 11.6 L (14.0-18.0) g/dl Hct (40.1-51.0) % POC Hct 34 L (42-52) % MCV (80.0-100.0) fL MCH (25.0-34.0) pg MCHC (32.0-36.0) g/dL RDW Std Deviation (36.4-46.3) fL RDW Coeff of Alesia (11.5-14.5) % Plt Count (130-400) K/uL MPV (9.4-12.4) fL Immature Gran % (Auto) % Neut % (Auto) % Lymph % (Auto) % [place] % (Auto) % Eos % (Auto) % Baso % (Auto) % Neut # (Auto) (1.4-6.5) K/uL Lymph # (Auto) (1.2-3.4) K/uL [place] # (Auto) (0.24-0.82) K/uL Eos # (Auto) (0-0.50) K/uL Baso # (Auto) (0-0.2) K/uL Immature Gran # (Auto) (0.00-0.02) K/uL PT (9.0-12.0) Seconds INR (0.9-1.1) POC Sodium 134 L (135-144) mmol/L Sodium (136-145) mmol/L POC Potassium 4.7 (3.3-5.0) mmol/L Potassium (3.5-5.1) mmol/L POC Chloride 99 L (101-112) mmol/L Chloride (98-107) mmol/L Carbon Dioxide (21-32) mmol/L POC Total CO2 24 (24-31) mmol/L Anion Gap (3-11) POC Anion Gap 17.0 (16-25) mmol/L POC BUN 22 H (7-18) mg/dl BUN (6-23) mg/dl Creatinine (0.6-1.4) mg/dl POC Creatinine 1.1 (0.6-1.3) mg/dl Est Cr Clr Drug Dosing ml/min Est GFR ( Amer) ml/min Est GFR (Non-Af Amer) ml/min BUN/Creatinine Ratio (10-20) Glucose (70-99(Fasting)) mg/dl POC Glucose (other) 164 H (70-99) mg/dl Lactate (0.4-2.0) mmol/L Calcium (8.5-10.1) mg/dl POC Ioniz Calcium Amando 1.20 (1.12-1.32) mmol/l Magnesium (1.7-2.4) mg/dl Total Bilirubin (0.2-1.0) mg/dl AST (13-39) U/L ALT (7-52) U/L Alkaline Phosphatase (34-104) U/L Troponin I High Sens (0-20) pg/ml Total Protein (6.0-8.3) gm/dl Albumin (3.4-5.0) gm/dl Globulin (2.5-4.0) gm/dl Albumin/Globulin Ratio (0.9-2) Procalcitonin (0-0.5) ng/ml TSH (0.300-4.500) uIu/ml Free T4 (0.61-1.60) ng/dl Urine Color Yellow Urine Appearance Clear (Clear) Urine pH 5.5 (4.5-7.5) Ur Specific [place] 1.039 H (1.000-1.030) Urine Protein 1+ H (Negative) Urine Glucose (UA) Trace H (Negative) Urine Ketones Negative (Negative) Urine Blood Negative (Negative) Urine Nitrite Negative (Negative) Urine Bilirubin Negative (Negative) Urine Urobilinogen Negative (Negative) Ur Leukocyte Esterase Negative (Negative) Urine WBC (Auto) 1-5 (0-5) /hpf Urine RBC (Auto) 0-4 (0-4) /hpf U Hyaline Cast (Auto) 1-5 (0-5) /lpf U Epithel Cells (Auto) >30 H (0-5) /lpf Urine Bacteria (Auto) Negative (Negative) SARS-CoV-2, RNA, NAAT NEGATIVE (NEGATIVE) 05/31/22 Range/Units 14:49 WBC (4.8-10.8) K/ul RBC (4.63-6.08) M/uL Hgb (14.0-18.0) g/dl POC Hgb (14.0-18.0) g/dl Hct (40.1-51.0) % POC Hct (42-52) % MCV (80.0-100.0) fL MCH (25.0-34.0) pg MCHC (32.0-36.0) g/dL RDW Std Deviation (36.4-46.3) fL RDW Coeff of Alesia (11.5-14.5) % Plt Count (130-400) K/uL MPV (9.4-12.4) fL Immature Gran % (Auto) % Neut % (Auto) % Lymph % (Auto) % [place] % (Auto) % Eos % (Auto) % Baso % (Auto) % Neut # (Auto) (1.4-6.5) K/uL Lymph # (Auto) (1.2-3.4) K/uL [place] # (Auto) (0.24-0.82) K/uL Eos # (Auto) (0-0.50) K/uL Baso # (Auto) (0-0.2) K/uL Immature Gran # (Auto) (0.00-0.02) K/uL PT (9.0-12.0) Seconds INR (0.9-1.1) POC Sodium (135-144) mmol/L Sodium (136-145) mmol/L POC Potassium (3.3-5.0) mmol/L Potassium (3.5-5.1) mmol/L POC Chloride (101-112) mmol/L Chloride (98-107) mmol/L Carbon Dioxide (21-32) mmol/L POC Total CO2 (24-31) mmol/L Anion Gap (3-11) POC Anion Gap (16-25) mmol/L POC BUN (7-18) mg/dl BUN (6-23) mg/dl Creatinine (0.6-1.4) mg/dl POC Creatinine (0.6-1.3) mg/dl Est Cr Clr Drug Dosing ml/min Est GFR ( Amer) ml/min Est GFR (Non-Af Amer) ml/min BUN/Creatinine Ratio (10-20) Glucose (70-99(Fasting)) mg/dl POC Glucose (other) (70-99) mg/dl Lactate 2.9 H* (0.4-2.0) mmol/L Calcium (8.5-10.1) mg/dl POC Ioniz Calcium Amando (1.12-1.32) mmol/l Magnesium (1.7-2.4) mg/dl Total Bilirubin (0.2-1.0) mg/dl AST (13-39) U/L ALT (7-52) U/L Alkaline Phosphatase (34-104) U/L Troponin I High Sens (0-20) pg/ml Total Protein (6.0-8.3) gm/dl Albumin (3.4-5.0) gm/dl Globulin (2.5-4.0) gm/dl Albumin/Globulin Ratio (0.9-2) Procalcitonin (0-0.5) ng/ml TSH (0.300-4.500) uIu/ml Free T4 (0.61-1.60) ng/dl Urine Color Urine Appearance (Clear) Urine pH (4.5-7.5) Ur Specific [place] (1.000-1.030) Urine Protein (Negative) Urine Glucose (UA) (Negative) Urine Ketones (Negative) Urine Blood (Negative) Urine Nitrite (Negative) Urine Bilirubin (Negative) Urine Urobilinogen (Negative) Ur Leukocyte Esterase (Negative) Urine WBC (Auto) (0-5) /hpf Urine RBC (Auto) (0-4) /hpf U Hyaline Cast (Auto) (0-5) /lpf U Epithel Cells (Auto) (0-5) /lpf Urine Bacteria (Auto) (Negative) SARS-CoV-2, RNA, NAAT (NEGATIVE) Administered Medications Sodium Chloride (Nss 1000ml) 1,000 mls @ 80 mls/hr IV .[id number] [facility] Stop: 06/01/22 15:44 Last Admin: 05/31/22 15:19 Dose: 80 mls/hr Documented By: QGV Lidocaine (Lidocaine 5% 1 Patch) 1 patch TD QAM [facility] Stop: 06/30/22 14:59 Last Admin: 05/31/22 15:20 Dose: 1 patch Documented By: QGV Discontinued Medications Fentanyl Citrate (Fentanyl Citrate 100 Mcg/2 Ml Vial) 25 mcg IV NOW STA Stop: 05/31/22 11:18 Last Admin: 05/31/22 12:17 Dose: 25 mcg Documented By: QGV Fentanyl Citrate (Fentanyl Citrate 100 Mcg/2 Ml Vial) 50 mcg IV NOW STA Stop: 05/31/22 13:52 Last Admin: 05/31/22 14:26 Dose: 50 mcg Documented By: QGV Sodium Chloride (Nss 1000ml) 1,000 mls @ 999 mls/hr IV .[id number] ONE Stop: 05/31/22 13:38 Last Infusion: 05/31/22 13:59 Dose: 0 mls/hr Documented By: Admin: 05/31/22 12:46 Dose: 999 mls/hr Documented By: QGV Ioversol (Optiray 320 500ml) 110 ml IV ONCE ONE Stop: 05/31/22 12:03 Last Admin: 05/31/22 11:57 Dose: 110 ml Documented By: BRM Imaging Data Radiologist's Impression: Chest CTA 05/31/22 11:17 CT angio chest PE protocol CT DOSE: 693.94 mGy.cm HISTORY: 71 years-old Male with PE, lightheaded/low BP, pain, recent CPR. Acute shortness of breath TECHNIQUE: Multiple CTA images of the chest were obtained after the intravenous administration of 110 ml Optiray. Coronal and sagittal MIPS were obtained from the axial data set and were submitted for review. All measurements were obtained according to NASCET criteria. A dose lowering technique was utilized adhering to the principles of ALARA. COMPARISON: Chest CT 03/12/2020 FINDINGS: CTA: Heart is mildly enlarged. No pericardial effusion. Moderate to extensive coronary artery calcifications. Atherosclerosis of the thoracic aorta without aneurysm. Unremarkable pulmonary artery without pulmonary emboli identified. CT CHEST: No thyroid nodule or lymphadenopathy identified. Congestion mild pulmonary emphysema. Trace right pleural effusion. No pneumothorax or overt pulmonary edema. Bronchial wall thickening with bibasilar mucous plugging and subsegmental atelectasis. Subpleural cystic changes within the right lung base with subpleural reticulation and punctate calcified granulomata. No suspicious pulmonary nodules or masses identified. No acute process of the imaged upper abdomen. Hepatomegaly with hepatic steatosis. Indeterminate 1.3 cm nodule with central macroscopic fat attenuation within the upper abdominal omentum, likely benign. Degenerative changes of the shoulders and spine. Acute nondisplaced fractures of the anterior right third through sixth ribs. IMPRESSION: 1. Acute nondisplaced fractures of the right anterior third through sixth ribs. No pneumothorax. 2. No pulmonary emboli identified. 3. Bronchial wall thickening with bibasilar mucous plugging. 4. Trace right pleural effusion. 5. Hepatic steatosis. ACT 112: Negative or not required by law. The above report was generated using voice recognition software. It may contain grammatical, syntax or spelling errors. Electronically signed by: Jacob Cleveland M.D. 05/31/2022 12:40 PM Discharge Plan Visit Data Chief Complaint: Syncope (Near Syncope) ED Provider: Jules Ramires Discharge Problem: Ribs, multiple fractures, Acute chest wall pain, Elevated lactic acid level Patient Disposition: Being Evaluated by Hospitalist Forms Stand Alone Forms: My [facility] Prescriptions Prescriptions: No Action mecobalamin (vitamin B12) 1,000 mcg tablet,chewable 1,000 mcg PO DAILY atorvastatin 80 mg tablet 80 mg PO QAM carvedilol 12.5 mg tablet 18.75 mg PO AMHS Rx Instructions: 1 & 1/2 tablet dose insulin glargine [Lantus U-100 Insulin] 100 unit/mL solution 55 unit subcut HS glipizide 10 mg tablet 5 mg PO BID isosorbide mononitrate 30 mg tablet extended release 24 hr 30 mg PO QAM pantoprazole 40 mg tablet,delayed release (DR/EC) 40 mg PO DAILY metformin 1,000 mg tablet 1,000 mg PO BIDM nitroglycerin 0.4 mg tablet, sublingual 0.4 mg sublingual UD PRN (Reason: chesst pain) Rx Instructions: place 1 tab under tongue as needed for chest pain, may repeat 3 times if chest pain continues call 911 lorazepam 1 mg tablet 1 mg PO BID PRN (Reason: anxiety/insomnia) Rx Instructions: Take at noon and bedtime albuterol sulfate [Ventolin HFA] 90 mcg/actuation HFA aerosol inhaler 2 puff inhalation Q6 PRN (Reason: SOB/Wheezing,cough) hydrocodone-acetaminophen 5-325 mg tablet 1 tab PO Q6 PRN (Reason: Pain, Moderate) aspirin 81 mg Tablet,Delayed Release (Dr/Ec) 81 mg PO QAM sertraline 100 mg tablet 100 mg PO DAILY hydroxyzine HCl 50 mg tablet 50 mg PO Q6 PRN (Reason: Anxiety) polyethylene glycol 3350 [Miralax] 17 gram/dose Powder 17 g PO UD Rx Instructions: use 1 capful up to 3 times a day for constipation Pulmicort Flexhaler 180 mcg/actuation aerosol powdr breath activated 2 inh INHALATION BID losartan 100 mg tablet 50 mg PO DAILY ferrous sulfate 325 mg (65 mg iron) Tablet 325 mg PO Q OTHER DAY magnesium oxide 400 mg magnesium Capsule 400 mg PO AMHS Pulmicort Flexhaler 180 mcg/actuation aerosol powdr breath activated 2 inh INHALATION BID nicotine 7 mg/24 hr Patch 24 Hour 14 mg transdermal QAM Qty: 14 0RF diclofenac sodium [Voltaren Arthritis Pain] 1 % Gel 4 g EXT Q6 PRN (Reason: pain) Qty: 100 0RF Referrals Referrals: Eddie Ruffin MD [Primary Care Provider] -
[2022-05-31 12:13] LABS: Albumin Globulin Ratio 1.3 (0.9-2); Albumin Level 3.7 gm/dl (3.4-5.0); BUN Creatinine Ratio 18.2 (10-20); Bilirubin,Total 0.7 mg/dl (0.2-1.0); Creatinine Clr Calc Pharmacy 68.2 ml/min; Est GFR (African American) 76.8 ml/min; Est GFR (Non-African American) 66.2 ml/min; Globulin 2.8 gm/dl (2.5-4.0); Magnesium 1.7 mg/dl (1.7-2.4); Potassium 4.5 mmol/L (3.5-5.1); Total Protein 6.5 gm/dl (6.0-8.3)
[2022-05-31 12:15] LABS: Troponin I High Sensitivity 8.3 pg/ml (0-20)
[2022-05-31 12:24] LABS: Thyroid Stimulating Hormone 6.038 uIu/ml (0.300-4.500)
[2022-05-31] MEDS ORDERED: SODIUM CHLORIDE 0.9% 1000ML 1,000 ML IV ONE (12:38)
--- NOTE | 2022-05-31 12:41 | CT Scan Report ---
CT angio chest PE protocol CT DOSE: 693.94 mGy.cm HISTORY: 71 years-old Male with PE, lightheaded/low BP, pain, recent CPR. Acute shortness of breath TECHNIQUE: Multiple CTA images of the chest were obtained after the intravenous administration of 110 ml Optiray. Coronal and sagittal MIPS were obtained from the axial data set and were submitted for review. All measurements were obtained according to NASCET criteria. A dose lowering technique was u tilized adhering to the principles of ALARA. COMPARISON: Chest CT 03/12/2020 FINDINGS: CTA: Heart is mildly enlarged. No pericardial effusion. Moderate to extensive coronary artery calcificatio ns. Atherosclerosis of the thoracic aorta without aneurysm. Unremarkable pulmonary artery without pul monary emboli identified. CT CHEST: No thyroid nodule or lymphadenopathy identified. Congestion mild pulmonary emphysema. Trace right ple ural effusion. No pneumothorax or overt pulmonary edema. Bronchial wall thickening with bibasilar muc ous plugging and subsegmental atelectasis. Subpleural cystic changes within the right lung base with subpleural reticulation and punctate calcified granulomata. No suspicious pulmonary nodules or masses identified. No acute process of the imaged upper abdomen. Hepatomegaly with hepatic steatosis. Indeterminate 1.3 cm nodule with central macroscopic fat attenuation within the upper abdominal omentum, likely benign. Degenerative changes of the shoulders and spine. Acute nondisplaced fractures of the anterior right third through sixth ribs. IMPRESSION: 1. Acute nondisplaced fractures of the right anterior third through sixth ribs. No pneumothorax. 2. No pulmonary emboli identified. 3. Bronchial wall thickening with bibasilar mucous plugging. 4. Trace right pleural effusion. 5. Hepatic steatosis. ACT 112: Negative or not required by law. The above report was generated using voice recognition software. It may contain grammatical, syntax o r spelling errors. Electronically signed by: Jacob Cleveland M.D. 05/31/2022 12:40 PM
[2022-05-31 13:00] LABS: Appearance Urine Clear (Clear); Bacteria Urine Automated Negative (Negative); Bilirubin Urine Negative (Negative); Blood Urine Negative (Negative); Color Urine Yellow; Epithelial Cell Urine Auto >30 /lpf (0-5); Glucose Urine UA Trace (Negative); Ketones Urine Negative (Negative); Leukocyte Esterase Urine Negative (Negative); Nitrite Urine Negative (Negative); Protein Urine 1+ (Negative); RBC Urine Automated 0-4 /hpf (0-4); Specific Gravity Urine 1.039 (1.000-1.030); Urobilinogen Urine Negative (Negative); pH Urine 5.5 (4.5-7.5)
[2022-05-31 13:11] LABS: T4 Free Thyroxine 1.02 ng/dl (0.61-1.60)
--- NOTE | 2022-05-31 14:05 | History & Physical Report ---
Date of Service May 31, 2022 Assessment & Plan (1) Ribs, multiple fractures: (2) Syncope: (3) Hypotension: (4) COPD (chronic obstructive pulmonary disease): (5) Coronary artery disease, occlusive: (6) DM type 2 (diabetes mellitus, type 2): Plan 71-year-old male presented from the [facility] cardiology office this morning as he was found to be hypotensive SBP 70's with dusky ventura in appearance.Recently admitted May 26 with a syncope and collapse with presumed vasovagal pulselessness and underwent CPR for about 35 seconds but was not in true cardiac arrest. During that time his EKG was normal sinus rhythm with some lateral T wave flattening. ECHO showed an EF of 60 to 65% with grade 1 diastolic dysfunction. Additional PMH includes diabetes type 2 insulin- dependent, COPD, CHF (EF of 60-65%), CAD s/p stent, HTN,HLD, PVD, BPH, and anxiety. Multiple rib fractures; CT scan unremarkable. Lactic acid is elevated at 3.6, blood cx and urine cx pending. trend troponin levels. Cards and Pain Management consults Multiple rib fractures 3-6: Underwent CPR during last syncopal episode; 6 rib fractures. Received 75 mcg Fentanyl IV in ED; will order Oxycodone PRN for breakthrough pain and a Lidoderm patch Pain Management consult for evaluation for IC nerve block; discussed on the phone with Dr. Bnaks who saw him outpatient and will reach out to Dr. Sullivan who is on-call for pain. Appreciate the assistance. Chest CT done in ED; no Pneumothorax/Hemothorax, no PE Hypotension: Syncope: Pt was hypotensive in outpatient office; ventura, dusky, pale, cool and clamy. Received 600mL IV fluids; normotensive Lactic Acid 3.6; will trend. Do not suspect infectious in nature Will order IVF 0.9 at 80ml/hour; total of 2 L to be administered; re-evaluate for continuation. Grade I diastolic dysfunction Pt is euvolemic on exam Urine and blood cultures pending PT/OT Orthostatic BP's EKG in AM BMP in AM CAD: HTN: Cards Consult placed to Dr. Astorga Continue baby aspirin, carvedilol, Imdur, losartan; await further direction from cardiology ECHO 05/28: EF 60-65%; improved from 2020 where EF was 55-60%: Grade 1 diastolic failure DM2: Holding glipizide, metformin while inpatient Patient takes Lantus SQ at home; continue as outline below/ordered Lantus: BSG > 180 Administer 22 units BSG 110-180 Administer 11 units BSG < 110 Do not administer any Lantus SSI with ACHS checks A1C on 05/28 was 6.7 Glycemic Pharmacy consult to assist with Lantus management H/O COPD: continue on home inhalers Outpatient PFTs as above CXR in AM. Does not require supplemental O2 at baseline Smoking cessation encouraged, nicotine patch ordered. Pt uses chewing tobacco. HLD: Continue on home medications, await cardiology recommendations Lipid panel done last admission: LDL 77, HDL 24, TG 386 Continue atorvastatin Disposition: PCP: Dr. Ruffin Code Status: Full Code VTE Prophylaxis: Lovenox SQ Goal to return home; likely admit overnight. I personally was able to review all current laboratory work and diagnostic images obtained in the ED. Additionally, I was able to review the patients past medication reconciliation and history with direct visualization in the patients chart. This patient was discussed in collaboration with Dr. Tamayo. History of Present Illness Chief Complaint: hypotension Primary Care Provider: Eddie Ruffin MD Mr. Pal is a 71-year-old male that presented to the [facility] ED as per recommendation by his outpatient nailing machine operator, Dr. Banks. He was at the [facility] cardiology office this morning for Holter monitor placement and was noted to be hypotensive with systolic blood pressure in the 70s and was dusky ventura in appearance. During my interview, he said that he became cool and clammy and felt disoriented since he was discharged from the hospital a few days ago. He also reports a decreased appetite. He reports that his blood sugars have been slightly elevated since he has been discharged from the hospital ranging in the 150s to 250s. He was recently admitted May 26 to the with a syncope and collapse with presumed vasovagal pulselessness and underwent CPR for about 35 seconds but was not in true cardiac arrest. During that time his EKG was normal sinus rhythm with some lateral T wave flattening. He did have an echocardiogram performed which showed an EF of 60 to 65% with grade 1 diastolic dysfunction. Additional PMH includes diabetes type 2 insulin-dependent, COPD, CHF (EF of 60-65%), CAD s/p stent, HTN,HLD, PVD, BPH, and anxiety. In the ED the patient did receive a CT scan as he was complaining of chest discomfort. The patient did sustain 3-6 rib fractures during the chest compressions a few days ago. No pneumothorax, hemothorax or PE was noted on the CT. Lactic acid is elevated at 3.6, blood cultures and urine culture pending however do not suspect this to be bacterial or infectious in nature. We will trend troponin levels; however first set was negative. Patient denies headache, dizziness, shortness of breath, palpitations, chest pain, nausea, vomiting, diarrhea, recent falls or trauma, or seizures. The patient will be admitted for further evaluation, pain control and specialist consultation. Please see A/P for further details and information. Allergies Allergy/AdvReac Type Severity Reaction Status Date / Time formoterol Allergy Intermediate RASH Verified 02/16/22 12:01 Penicillins Allergy Intermediate Unknown Verified 05/27/22 17:12 simvastatin Allergy Intermediate RASH Verified 02/16/22 12:01 lisinopril Allergy Unknown . Verified 05/27/22 17:12 Home Medications Medication Instructions Recorded Confirmed Type albuterol sulfate 90 mcg/actuation 2 puff inhalation Q6 PRN 02/09/19 05/31/22 History aerosol inhaler (Ventolin HFA) SOB/Wheezing,cough atorvastatin 80 mg tablet 80 mg PO QAM 02/09/19 05/31/22 History carvedilol 12.5 mg tablet 18.75 mg PO AMHS 02/09/19 05/31/22 History glipizide 10 mg tablet 5 mg PO BID 02/09/19 05/31/22 History insulin glargine 100 unit/mL 55 unit subcut HS 02/09/19 05/31/22 History subcutaneous solution (Lantus U-100 Insulin) isosorbide mononitrate 30 mg 30 mg PO QAM 02/09/19 05/31/22 History tablet,extended release 24 hr lorazepam 1 mg tablet 1 mg PO BID PRN anxiety/insomnia 02/09/19 05/31/22 History metformin 1,000 mg tablet 1,000 mg PO BIDM 02/09/19 05/31/22 History nitroglycerin 0.4 mg sublingual 0.4 mg sublingual UD PRN chesst 02/09/19 05/31/22 History tablet pain pantoprazole 40 mg tablet,delayed 40 mg PO DAILY 02/09/19 05/31/22 History release aspirin 81 mg tablet,delayed 81 mg PO QAM 03/08/19 05/31/22 History release hydrocodone 5 mg-acetaminophen 325 1 tab PO Q6 PRN Pain, Moderate 03/08/19 05/31/22 History mg tablet mecobalamin (vitamin B12) 1,000 1,000 mcg PO DAILY 09/25/20 05/31/22 History mcg chewable tablet hydroxyzine HCl 50 mg tablet 50 mg PO Q6 PRN Anxiety 02/01/21 05/31/22 History polyethylene glycol 3350 17 17 g PO UD 02/01/21 05/31/22 History gram/dose oral powder (Miralax) sertraline 100 mg tablet 100 mg PO DAILY 02/01/21 05/31/22 History budesonide 180 mcg/actuation 2 inh inhalation BID 05/27/22 05/31/22 History breath activated powder inhaler (Pulmicort Flexhaler) budesonide 180 mcg/actuation 2 inh inhalation BID 05/27/22 05/31/22 History breath activated powder inhaler (Pulmicort Flexhaler) ferrous sulfate 325 mg (65 mg 325 mg PO Q OTHER DAY 05/27/22 05/31/22 History iron) tablet losartan 100 mg tablet 50 mg PO DAILY 05/27/22 05/31/22 History magnesium oxide 400 mg PO AMHS 05/27/22 05/31/22 History diclofenac sodium 1 % topical gel 4 g EXT Q6 PRN pain #100 grams 05/28/22 05/31/22 Rx (Voltaren Arthritis Pain) nicotine 7 mg/24 hr daily 14 mg transdermal QAM #14 ea 05/28/22 05/31/22 Rx transdermal patch Past Med/Surg History Medical History (Updated 05/31/22 @ 16:00 by Jules Ramires M.D.) BPH (benign prostatic hypertrophy) CAD (coronary artery disease) COPD (chronic obstructive pulmonary disease) Coronary artery disease, occlusive "s/p stent" DM type 2 (diabetes mellitus, type 2) GERD (gastroesophageal reflux disease) 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 Hypotension Lumbago Mood disorder Ribs, multiple fractures Sensorineural hearing loss of both ears Tobacco use disorder Surgical History H/O inguinal hernia repair History of carpal tunnel surgery S/P cardiac cath S/P total knee arthroplasty Stented coronary artery Family History Other COPD (chronic obstructive pulmonary disease) Diabetes Heart disease Rheumatoid arthritis Social History Smoking Status: Unknown if ever smoked Tobacco Type: Cigarettes Number of Years Since Quit: 31; Hx Alcohol Use: No Hx Substance Use: No Preferred Language: Libyan Communication Ability: Effective Prep Cook Required: No Beliefs That Will Affect Care: None Current Living Situation: Spouse Feels Safe at Home: Yes Assistive Devices: Cane Review of Systems Review of Systems: Neuro: (-) Falls, trauma, slurred speech (+) anterior pain in his chest HEENT: (-) BAUTISTA, dizziness, dysphagia, visual or auditory changes CV: (-) CP, palpitations, swelling Resp: (-) SOB GI: (-) appetite changes, N/V/D, bowel changes : (-) urinary changes Skin: (-) rashes Psych: (+) anxiety, depression Physical Exam Physical Exam: Neuro: AAOx4, PERRLA, no aphagia, memory changes, CNII-XII grossly intact HEENT: head normocephalic, moist mucus membranes CV: S1/S2, (-) M/G/R, (-) edema, cap refill < 3 seconds Resp: Lungs CTA in all aguilar. On RA GI: Abdomen large, distended, NT, Ax4 bowel sounds, (-) CVA tenderness Musculoskeletal: 5/5 B/L UE strength, 5/5 B/L LE strength. No gait disturbance Skin: (-) rashes , (-) erythema. Psych: euthymic mood Results & Data Results & Data ([facility]) Vital Signs (Past 12 Hours) Vital Signs Temp Pulse Pulse Resp BP BP Pulse Ox 05/31/22 12:45 65 19 149/78 H 95 05/31/22 13:00 62 20 125/63 94 05/31/22 11:37 62 20 96 05/31/22 11:08 36.4 C L 62 20 120/66 96 O2 Del Method O2 Flow Rate 05/31/22 12:45 Room Air 05/31/22 13:00 Room Air 05/31/22 11:37 Nasal Cannula 2 05/31/22 11:08 Nasal Cannula 2 Laboratory Results Short CBC 05/31/22 Range/Units 11:15 WBC 8.90 (4.8-10.8) K/ul Hgb 12.1 L (14.0-18.0) g/dl Hct 36.3 L (40.1-51.0) % Plt Count 174 (130-400) K/uL BMP 05/31/22 11:15 Sodium 133 L Potassium 4.5 Chloride 101 Carbon Dioxide 24 BUN 20 Creatinine 1.10 Glucose 168 H Calcium 9.0 Liver Function 05/31/22 Range/Units 11:15 Total Bilirubin 0.7 (0.2-1.0) mg/dl AST 14 (13-39) U/L ALT 20 (7-52) U/L Alkaline Phosphatase 50 (34-104) U/L Albumin 3.7 (3.4-5.0) gm/dl Urine 05/31/22 Range/Units 12:47 Urine Color Yellow Urine Appearance Clear (Clear) Urine pH 5.5 (4.5-7.5) Ur Specific Carrier 1.039 H (1.000-1.030) Urine Protein 1+ H (Negative) Urine Glucose (UA) Trace H (Negative) Diagnostic Findings Chest CTA 05/31/22 11:17 CT angio chest PE protocol CT DOSE: 693.94 mGy.cm HISTORY: 71 years-old Male with PE, lightheaded/low BP, pain, recent CPR. Acute shortness of breath TECHNIQUE: Multiple CTA images of the chest were obtained after the intravenous administration of 110 ml Optiray. Coronal and sagittal MIPS were obtained from the axial data set and were submitted for review. All measurements were obtained according to NASCET criteria. A dose lowering technique was utilized adhering to the principles of ALARA. COMPARISON: Chest CT 03/12/2020 FINDINGS: CTA: Heart is mildly enlarged. No pericardial effusion. Moderate to extensive coronary artery calcifications. Atherosclerosis of the thoracic aorta without aneurysm. Unremarkable pulmonary artery without pulmonary emboli identified. CT CHEST: No thyroid nodule or lymphadenopathy identified. Congestion mild pulmonary emphysema. Trace right pleural effusion. No pneumothorax or overt pulmonary edema. Bronchial wall thickening with bibasilar mucous plugging and subsegmental atelectasis. Subpleural cystic changes within the right lung base with subpleural reticulation and punctate calcified granulomata. No suspicious pulmonary nodules or masses identified. No acute process of the imaged upper abdomen. Hepatomegaly with hepatic steatosis. Indeterminate 1.3 cm nodule with central macroscopic fat attenuation within the upper abdominal omentum, likely benign. Degenerative changes of the shoulders and spine. Acute nondisplaced fractures of the anterior right third through sixth ribs. IMPRESSION: 1. Acute nondisplaced fractures of the right anterior third through sixth ribs. No pneumothorax. 2. No pulmonary emboli identified. 3. Bronchial wall thickening with bibasilar mucous plugging. 4. Trace right pleural effusion. 5. Hepatic steatosis. ACT 112: Negative or not required by law. The above report was generated using voice recognition software. It may contain grammatical, syntax or spelling errors. Electronically signed by: Jacob Cleveland M.D. 05/31/2022 12:40 PM ECG Additional Comments: HR 60 KENNEDY 182 ms QRS 82ms QTc 424 Code Status & VTE Plan Code Status Full Code in the event of cardiac or respiratory arrest VTE Prophylaxis Plan VTE Prophylaxis will be ordered: Yes Supervising Physician Co-Signing Physician Notes The patient is a 71 year old man with pmh of HFpEF (EF 60%, G1DD 05/2022), CAD s/p PCI, HTN, hyperlipidemia, PVD, history cerebellar hemorrhage status post surgery (2007), DM2 (A1c 6.7% 05/2022), COPD who presents from Cardiology clinic with hypotension. He received IVF in the ED with good response of his BP. He had a CTA of his chest with no PE seen but nondisplaced rib fractures of ribs 3-6 on the right side. Patient denies cough, fever or chills, n/v/d, dysuria. Reports decreased appetite and decreased po intake, attributing it to pain that has worsened since recent admission after CPR performed for presumed Cardiac arrest on prior admission (do not think he actually had cardiac event at that time). Physical exam is significant for tenderness to palpation on his anterior chest, R>L, heart RRR, lungs CTAB, abdomen soft and nontender, no LE edema. No leukocytosis, CTA without evidence of consolidation, hgb at baseline, Na 133, lactic acid 3.6-->2.9 with IVF, PCT <0.5, UA with dehydration but no indication of infection. Will continue IVF, trend lactic acid, encourage po, pain control from his rib fractures, monitor off abx for now. Case discussed with KAYLAH Mcmillan and agree with the rest of the plan as outlined above. (1) Syncope Syncope type: vasovagal syncope Qualified Code(s): R55 - Syncope and collapse
[2022-05-31] MEDS ORDERED: ALBUTEROL HFA 8 GM INHALER INH PRN (15:02)
[2022-05-31] MEDS: SODIUM CHLORIDE 0.9% 1000ML 1,000 ML IV SCH (15:19)
[2022-05-31] MEDS: LIDOCAINE 5% 1 PATCH TD SCH ×2 (15:20→20:23)
[2022-05-31] MEDS ORDERED: ONDANSETRON INJ 2 MG/ML 2 ML VIAL IV PRN (16:16)
[2022-05-31] MEDS ORDERED: ALUMINUM/MAGNESIUM SUSP 30 ML UDC PO PRN (16:16)
[2022-05-31] MEDS ORDERED: PHARMACY GLYCEMIC MGMT CONSULT PRN (16:16)
[2022-05-31] MEDS ORDERED: MAGNESIUM HYDROXIDE SUSP 30 ML UDC PO PRN (16:16)
[2022-05-31] MEDS ORDERED: GLUCOSE 40% GEL 15 GM TUBE PO PRN (16:16)
[2022-05-31] MEDS ORDERED: POLYETHYLENE (MIRALAX) 17 GM PACK PO PRN (16:16)
[2022-05-31] MEDS ORDERED: CARBOHYDRATES FOR HYPOGLYCEMIA PO PRN (16:16)
[2022-05-31] MEDS ORDERED: GLUCAGON FOR INJ 1 MG VIAL SQ PRN (16:16)
[2022-05-31] MEDS ORDERED: DEXTROSE 50% 50 ML SYRINGE IV PRN (16:16)
[2022-05-31] MEDS ORDERED: ACETAMINOPHEN 325 MG TAB PO PRN (16:16)
[2022-05-31] MEDS ORDERED: GLUCOSE 10 TAB/TUBE PO PRN (16:16)
--- NOTE | 2022-05-31 17:02 | XRay Report ---
XR chest 1V portable CLINICAL HISTORY: syncope TECHNIQUE: Single frontal radiograph of the chest was obtained. Comparison: Comparison is made to chest radiograph 05/27/2022 FINDINGS: No lines and tubes are seen. Cardiomegaly is noted. Faint bibasilar airspace opacities are seen. Prom inence of the pulmonary vasculature is noted. No evidence of pleural effusion or pneumothorax. IMPRESSION: 1. Faint bibasilar airspace opacities which may represent atelectasis, pneumonia, and/or aspiration. 2. Mild pulmonary edema is seen. Stable cardiomegaly. ACT 112: Negative or not required by law. Electronically signed by: Luther Marcial M.D. 05/31/2022 5:00 PM
[2022-05-31] MEDS: INSULIN ASPART PER UNIT SC SCH ×2 (17:46→20:06)
--- NOTE | 2022-05-31 17:51 | Electrocardiogram Report ---
Test Reason : Blood Pressure : / mmHG Vent. Rate : 060 BPM Atrial Rate : 060 BPM P-R Int : 182 ms QRS Dur : 082 ms QT Int : 424 ms P-R-T Axes : -03 001 166 degrees QTc Int : 424 ms Normal sinus rhythm T wave abnormality, consider lateral ischemia Abnormal ECG When compared with ECG of 27-MAY-2022 18:23, Premature atrial complexes are no longer Present Nonspecific T wave abnormality now evident in Inferior leads Confirmed by Sridhar Barcenas ([id number]) on 05/31/2022 5:50:45 PM Referred By: Confirmed By:Scar Barcenas
[2022-05-31] MEDS: DICLOFENAC SOD 1% GEL 100 GM TUBE EXT SCH ×2 (19:54→23:46)
[2022-05-31] MEDS: carvediloL 12.5 MG TAB PO SCH (19:57)
[2022-05-31] MEDS: MAGNESIUM OXIDE 400 MG TAB PO SCH (19:58)
[2022-05-31] MEDS: LORazepam 1 MG TAB PO PRN (19:59)
[2022-05-31] MEDS: LANTUS PER UNIT CHARGE SQ SCH (20:08)
[2022-05-31] MEDS ORDERED: [UNRECOGNIZED DRUG - OTHER] INH SCH (21:00)
[2022-05-31] MEDS ORDERED: BUDESONIDE INH SCH (21:00)
[2022-05-31] MEDS: oxyCODONE HCL IR 5 MG TAB (IMMEDIATE RELEASE) PO PRN (22:19)
[2022-06-01] MEDS ORDERED: hydrALAZINE HCL 20 MG/ML VIAL IV ONE (01:17)
[2022-06-01] MEDS: oxyCODONE HCL IR 5 MG TAB (IMMEDIATE RELEASE) PO PRN ×2 (02:57→07:06)
[2022-06-01] MEDS: SODIUM CHLORIDE 0.9% 1000ML 1,000 ML IV SCH (03:07)
[2022-06-01] MEDS: DICLOFENAC SOD 1% GEL 100 GM TUBE EXT SCH ×3 (05:04→17:03)
[2022-06-01] MEDS ORDERED: hydrALAZINE HCL 20 MG/ML VIAL IV STA (05:16)
[2022-06-01 07:27] LABS: Hematocrit (blood only) 36.3 % (40.1-51.0); Hemoglobin 12.5 g/dl (14.0-18.0); Mean Corpuscular Hemoglobin 32.9 pg (25.0-34.0); Mean Corpuscular Hgb Conc 34.4 g/dL (32.0-36.0); Mean Corpuscular Volume 95.5 fL (80.0-100.0); Mean Platelet Volume 9.3 fL (9.4-12.4); Platelet Count 159 K/uL (130-400); RDW Coefficient of Variation 12.8 % (11.5-14.5); RDW Standard Deviation 45.2 fL (36.4-46.3); White Blood Count 7.75 K/ul (4.8-10.8)
[2022-06-01 07:49] LABS: BUN Creatinine Ratio 19.8 (10-20); Calcium 9.3 mg/dl (8.5-10.1); Creatinine Clr Calc Pharmacy 77.2 ml/min; Est GFR (African American) 90.5 ml/min; Est GFR (Non-African American) 78.1 ml/min; Magnesium 1.7 mg/dl (1.7-2.4); Phosphorus 2.9 mg/dl (2.5-4.9); Potassium 4.1 mmol/L (3.5-5.1)
[2022-06-01] MEDS: carvediloL 12.5 MG TAB PO SCH ×2 (08:24→20:42)
[2022-06-01] MEDS: CYANOCOBALAMIN (B-12) 500 MCG TABLET PO SCH (08:24)
[2022-06-01] MEDS: PANTOprazole 40 MG TAB PO SCH (08:24)
[2022-06-01] MEDS: MAGNESIUM OXIDE 400 MG TAB PO SCH ×2 (08:24→20:42)
[2022-06-01] MEDS: ATORVASTATIN 40 MG TAB PO SCH (08:25)
[2022-06-01] MEDS: LOSARTAN POTASSIUM 50 MG TAB PO SCH (08:25)
[2022-06-01] MEDS: ISOSORBIDE MONO EXTENDED REL 30 MG TABCR PO SCH (08:25)
[2022-06-01] MEDS: FLUTICASONE FUROATE 200MCG 14 PUFFS/INHALER INH SCH (08:26)
[2022-06-01] MEDS: LIDOCAINE 5% 1 PATCH TD SCH (08:26)
[2022-06-01] MEDS: NICOTINE 14 MG/24 HR PATCH TD SCH (08:26)
[2022-06-01] MEDS: SERTRALINE HCL 100 MG TABLET PO SCH (08:27)
[2022-06-01] MEDS: LANTUS PER UNIT CHARGE SQ SCH ×2 (08:37→20:44)
[2022-06-01] MEDS: INSULIN ASPART PER UNIT SC SCH ×4 (08:38→20:44)
--- NOTE | 2022-06-01 08:38 | Pain Management Consultation ---
Date of Consultation June 01, 2022 Assessment & Plan (1) Ribs, multiple fractures: Encounter type: initial encounter Fracture type: closed Laterality: right Qualified Code(s): S22.41XA - Multiple fractures of ribs, right side, initial encounter for closed fracture (2) Acute chest wall pain: (3) Chronic constipation: (4) Lumbago: (5) Chronic 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: (6) Syncope: Syncope type: vasovagal syncope Qualified Code(s): R55 - Syncope and collapse (7) Hypotension: Plan 1. Patient with multiple rib fractures right anterior nondisplaced 3 through 6 from a bout of apparent unnecessary CPR due to hypotension/poor responsiveness approximately 1 week ago with complaints of right anterior chest wall pain. Patient reports a history of chronic hydrocodone utilization in the outpatient setting for treatment of chronic low back pain as well as a history of chronic right knee pain status post TKA. He further reports chronic constipation. We did discuss expectations regarding rib fractures, healing and pain. Treatment options were reviewed. He deferred any interventional procedures as we did briefly discuss a paravertebral rib block, but inability to pursue radiofrequency ablation due to the multiple rib fractures. 2. Will discontinue Oxy IR and transition the patient back to his typical hydrocodone 5/325 mg 1 tablet p.o. every 4 hours for as needed breakthrough pain 3. Continue with Lidoderm patch applied to the anterior chest wall 4. Due to his chronic constipation will initiate MiraLAX on a daily basis. Consider Relistor during this admission as there may be some opioid-induced cons tipation contributing during this admission. 5. Pain service will sign off on patient at this time. Please contact us for reevaluation as needed Thank you for allowing us to participate in the care of Mr. Ellis History of Present Illness Reason for Consultation: Right anterior chest wall pain-multiple rib fractures 3-6 Requesting Physician: KAYLAH Mcmillan Attending Physician: Benjamín Johnson MD History of Present Illness Mr. Ellis is a 71-year-old white male who was admitted due to presyncope and hypotension. Patient was referred by his cardiology office. Patient has past medical history significant for insulin-dependent type 2 diabetes mellitus, COPD, CHF, CAD status post stent, hypertension, hyperlipidemia, peripheral vascular disease, BPH and anxiety. He had been admitted October 26 through 28 with a history of syncope and collapse with presumed vasovagal pulselessness and underwent CPR for approximately 35 seconds but was not in true cardiac arrest. Patient unfortunately suffered multiple anterior rib fractures on the right side. Ribs 3 through 6 have a nondisplaced fracture per CT. Patient has complained of some anterior chest wall pain which he rates a 1/10 at its best and a 8/10 at its worst. He reports the pain is aggravated with movement, deep breathing and coughing activities. He has minimal pain while at rest. He is finding oxycodone to be effective at diminishing his pain for 3-4 hours. Patient denies axial back pain or thoracic radicular component pain. He does report a history of chronic axial low back pain and chronic right knee pain status post TKA. He does utilize hydrocodone 5/325 mg chronically in the outpatient setting twice daily. He does report some chronic constipation which requires use of suppositories. He reports no bowel movement since last Tuesday. He denies abdominal pain or fullness. Patient has no further constitutional complaints at this time. Plan of care discussed with Dr. Marcy Isaac. Pain Assessment Pain scale - at its best (0-10): 8 Pain scale - at its worst (0-10): 1 Allergies Allergy/AdvReac Type Severity Reaction Status Date / Time formoterol Allergy Intermediate RASH Verified 02/16/22 12:01 Penicillins Allergy Intermediate Unknown Verified 05/27/22 17:12 simvastatin Allergy Intermediate RASH Verified 02/16/22 12:01 lisinopril Allergy Unknown . Verified 05/27/22 17:12 Home Medications Medication Instructions Recorded Confirmed Type albuterol sulfate 90 mcg/actuation 2 puff inhalation Q6 PRN 02/09/19 05/31/22 History aerosol inhaler (Ventolin HFA) SOB/Wheezing,cough atorvastatin 80 mg tablet 80 mg PO QAM 02/09/19 05/31/22 History carvedilol 12.5 mg tablet 18.75 mg PO AMHS 02/09/19 05/31/22 History glipizide 10 mg tablet 5 mg PO BID 02/09/19 05/31/22 History insulin glargine 100 unit/mL 55 unit subcut HS 02/09/19 05/31/22 History subcutaneous solution (Lantus U-100 Insulin) isosorbide mononitrate 30 mg 30 mg PO QAM 02/09/19 05/31/22 History tablet,extended release 24 hr lorazepam 1 mg tablet 1 mg PO BID PRN anxiety/insomnia 02/09/19 05/31/22 History metformin 1,000 mg tablet 1,000 mg PO BIDM 02/09/19 05/31/22 History nitroglycerin 0.4 mg sublingual 0.4 mg sublingual UD PRN chesst 02/09/19 05/31/22 History tablet pain pantoprazole 40 mg tablet,delayed 40 mg PO DAILY 02/09/19 05/31/22 History release aspirin 81 mg tablet,delayed 81 mg PO QAM 03/08/19 05/31/22 History release hydrocodone 5 mg-acetaminophen 325 1 tab PO Q6 PRN Pain, Moderate 03/08/19 05/31/22 History mg tablet mecobalamin (vitamin B12) 1,000 1,000 mcg PO DAILY 09/25/20 05/31/22 History mcg chewable tablet hydroxyzine HCl 50 mg tablet 50 mg PO Q6 PRN Anxiety 02/01/21 05/31/22 History polyethylene glycol 3350 17 17 g PO UD 02/01/21 05/31/22 History gram/dose oral powder (Miralax) sertraline 100 mg tablet 100 mg PO DAILY 02/01/21 05/31/22 History budesonide 180 mcg/actuation 2 inh inhalation BID 05/27/22 05/31/22 History breath activated powder inhaler (Pulmicort Flexhaler) budesonide 180 mcg/actuation 2 inh inhalation BID 05/27/22 05/31/22 History breath activated powder inhaler (Pulmicort Flexhaler) ferrous sulfate 325 mg (65 mg 325 mg PO Q OTHER DAY 05/27/22 05/31/22 History iron) tablet losartan 100 mg tablet 50 mg PO DAILY 05/27/22 05/31/22 History magnesium oxide 400 mg PO AMHS 05/27/22 05/31/22 History diclofenac sodium 1 % topical gel 4 g EXT Q6 PRN pain #100 grams 05/28/22 05/31/22 Rx (Voltaren Arthritis Pain) nicotine 7 mg/24 hr daily 14 mg transdermal QAM #14 ea 05/28/22 05/31/22 Rx transdermal patch Pain History Pain Intensity Pain scale - at its best (0-10): 8 Pain scale - at its worst (0-10): 1 Patient History Medical History (Updated 06/01/22 @ 08:56 by David Cespedes PA-C) BPH (benign prostatic hypertrophy) CAD (coronary artery disease) Chronic constipation Chronic 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 COPD (chronic obstructive pulmonary disease) Coronary artery disease, occlusive "s/p stent" DM type 2 (diabetes mellitus, type 2) GERD (gastroesophageal reflux disease) 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 Hypotension Lumbago Mood disorder Ribs, multiple fractures Sensorineural hearing loss of both ears Tobacco use disorder Surgical History H/O inguinal hernia repair History of carpal tunnel surgery S/P cardiac cath S/P total knee arthroplasty Stented coronary artery Family History Other COPD (chronic obstructive pulmonary disease) Diabetes Heart disease Rheumatoid arthritis Social History Smoking Status: Former smoker Tobacco Type: Cigarettes Number of Years Since Quit: 31; Hx Alcohol Use: No Hx Substance Use: No Preferred Language: Iraqi Communication Ability: Effective Java Front End Web Developer Required: No Beliefs That Will Affect Care: None Current Living Situation: Spouse Feels Safe at Home: Yes Safety Concerns: Feels Safe At This Time Assistive Devices: Denture - Upper and Hearing Aid - Bilateral Physical Exam Physical Exam: General: Patient sitting up drinking coffee upon entering the exam room in no acute distress. Speech and thought process appropriate. Mood and affect appropriate. Cognition intact. Patient extremely hard of hearing but communication was effective. Head: Normocephalic and atraumatic. ENT: No evidence of nasal or oral mucosal lesions. Mucous membranes are moist. Eyes: Pupils equal round reactive to light. Neck: Supple without adenopathy and full range of motion. Chest: Patient is generally tender over the right upper and mid anterior chest wall to direct palpation. Lidoderm patch in place. Patient tender to palpation of the costosternal junction on the right side. Patient is tender with AP and lateral compression of the chest wall in the right anterior chest. There is no visible abnormalities or palpable rib displacement. Lungs: Clear to auscultation no wheeze or rhonchi with slightly diminished breath sounds secondary to effort. Abdomen: Soft and nondistended. No organomegaly. Bowel sounds active. Back/spine: Loss of lumbar lordosis. Nontender over the midline. Minimally tender over the lumbosacral junction which is nonfocal. No focal facet or SI joint tenderness. Lower extremities: SLR negative bilaterally. Well-healed surgical incision status post right TKA. He is generally tender over the infrapatellar region tender palpation. Nontender along the joint line. No redness, swelling or warmth. Neurologic: Cranial nerves grossly intact. Ambulatory function not witnessed. Results (Pain Clinic) Diagnostic Review CT Findings: [facility], [place] [phone] CT Scan Report Patient:HANNAH ELLIS Admit Date:05/31/22 MR#:[id number] Address1:[address] [place] [address] Acct ID:[id number] Address2: Date:1950 [facility] Zip:[place] [address] Age:71 Location:ED Sex:M Room/Bed: Att Phy: Diagnosis: Maria Ines Phy:Eddie Ruffin MD Service Date:05/31/22 Fam Phy: Interpreting Phy:Jacob Walker Phy: Ordering Phy:Jules Ramires M.D. cc: ~ CT angio chest PE protocol CT DOSE: 693.94 mGy.cm HISTORY: 71 years-old Male with PE, lightheaded/low BP, pain, recent CPR. Acute shortness of breath TECHNIQUE: Multiple CTA images of the chest were obtained after the intravenous administration of 110 ml Optiray. Coronal and sagittal MIPS were obtained from the axial data set and were submitted for review. All measurements were obtained according to NASCET criteria. A dose lowering technique was utilized adhering to the principles of ALARA. COMPARISON: Chest CT 03/12/2020 FINDINGS: CTA: Heart is mildly enlarged. No pericardial effusion. Moderate to extensive coronary artery calcifications. Atherosclerosis of the thoracic aorta without aneurysm. Unremarkable pulmonary artery without pulmonary emboli identified. CT CHEST: No thyroid nodule or lymphadenopathy identified. Congestion mild pulmonary emphysema. Trace right pleural effusion. No pneumothorax or overt pulmonary edema. Bronchial wall thickening with bibasilar mucous plugging and subsegmental atelectasis. Subpleural cystic changes within the right lung base with subpleural reticulation and punctate calcified granulomata. No suspicious pulmonary nodules or masses identified. No acute process of the imaged upper abdomen. Hepatomegaly with hepatic steatosis. Indeterminate 1.3 cm nodule with central macroscopic fat attenuation within the upper abdominal omentum, likely benign. Degenerative changes of the shoulders and spine. Acute nondisplaced fractures of the anterior right third through sixth ribs. IMPRESSION: 1. Acute nondisplaced fractures of the right anterior third through sixth ribs. No pneumothorax. 2. No pulmonary emboli identified. 3. Bronchial wall thickening with bibasilar mucous plugging. 4. Trace right pleural effusion. 5. Hepatic steatosis. ACT 112: Negative or not required by law. The above report was generated using voice recognition software. It may contain grammatical, syntax or spelling errors. Electronically signed by: Jacob Cleveland M.D. 05/31/2022 12:40 PM Dictated:05/31/22 1220 Transcribed: 05/31/22 1220 Radiology Findings: [place], [place] [phone] XRay Report Patient:HANNAH ELLIS Admit Date:05/31/22 MR#:[id number] Address1:[address] [place] [address] Acct ID:[id number] Address2: Date:1950 [facility] Zip:[place] [address] Age:71 Location:[facility] Sex:M Room/Bed:[place] [address] Att Phy:Benjamín Johnson MD Diagnosis:SYNCOPE Maria Ines Phy:Eddie Ruffin MD Service Date:05/31/22 Fam Phy: Interpreting Phy:Luther Marcial MDAdmit Phy:Benjamín Johnson MD Ordering Phy:KAYLAH Mcmillan cc: ~ XR chest 1V portable CLINICAL HISTORY: syncope TECHNIQUE: Single frontal radiograph of the chest was obtained. Comparison: Comparison is made to chest radiograph 05/27/2022 FINDINGS: No lines and tubes are seen. Cardiomegaly is noted. Faint bibasilar airspace opacities are seen. Prominence of the pulmonary vasculature is noted. No evidence of pleural effusion or pneumothorax. IMPRESSION: 1. Faint bibasilar airspace opacities which may represent atelectasis, pneumonia, and/or aspiration. 2. Mild pulmonary edema is seen. Stable cardiomegaly. ACT 112: Negative or not required by law. Electronically signed by: Luther Marcial M.D. 05/31/2022 5:00 PM Dictated:05/31/221657 Transcribed: 05/31/221657
[2022-06-01] MEDS: POLYETHYLENE (MIRALAX) 17 GM PACK PO SCH (10:24)
[2022-06-01] MEDS: ASPIRIN 81 MG ECTAB PO SCH (10:24)
--- NOTE | 2022-06-01 10:33 | Hospitalist Progress Note ---
Date of Service June 01, 2022 Assessment & Plan (1) Ribs, multiple fractures: Plan: - Underwent CPR during last syncopal episode; 6 rib fractures. - s/p 75 mcg Fentanyl IV in ED; - Pain Management consult for evaluation for IC nerve block - declined - pain management with med adjustments - multimodal pain management with lidocain, voltaren, prn narcotics - Chest CT done in ED; no Pneumothorax/Hemothorax, no PE but Rib fractures of 3- 6 noted, nondisplaced - PT/OT (2) Hypotension: Plan: - was hypotensive in outpatient office; [place]ura, dusky, pale, cool and clamy. - Received 600mL IV fluids; normotensive - lactic Acid 3.6 --> 0.7 after IVF - Pt is euvolemic on exam - blood cultures pending - low suspicion for infection at this time - UA negative - likely due to dehydration from decreased po in setting of pain from acute rib fractures (3) COPD (chronic obstructive pulmonary disease): Plan: - stable, not in exacerbation - continue home inhalers - follow up pulm as outpatient for PFTs (4) Coronary artery disease, occlusive: Plan: - stable, no chest pain - Continue aspirin 81mg, carvedilol, Imdur, losartan - continue statin - Cardiology consult (5) DM type 2 (diabetes mellitus, type 2): Plan: - Holding glipizide, metformin while inpatient - Patient takes Lantus SQ at home - lantus per pharmacy protocol - SSI with ACHS checks for now - A1C on 05/28/2022 was 6.7 - Glycemic Pharmacy consult to assist with Lantus management Plan VTE Prophylaxis: Lovenox SQ Code Status: Full Code Dispo: Tele PCP: Dr. Augustin Johnson MD [facility] Medicine Admission and Anticipated Discharge Date Admission Date: May 31, 2022 Subjective The patient is a 71 year old man with pmh of HFpEF (EF 60%, G1DD 05/2022), CAD s/p PCI, HTN, hyperlipidemia, PVD, history cerebellar hemorrhage status post surgery (2007), DM2 (A1c 6.7% 05/2022), COPD who presents from Cardiology clinic with hypotension. Being treated for dehydration with IVF, PT/OT evaluation. Pain management made recs. Cardiology consult. Septic work up sent but low suspicion. Patient still in pain in right rib cage area, especially with deep breaths and coughing. Worked with PT this morning and felt a little dizzy. Denies other chest pain, shortness of breath, n/v/d, abdominal pain, dysuria. Review of Systems Review of Systems: All systems reviewed & are unremarkable except as noted in Subjective Physical Exam Physical Exam: Neuro: AAOx4, PERRLA, no aphagia, memory changes, CNII-XII grossly intact HEENT: head normocephalic, moist mucus membranes CV: S1/S2, (-) M/G/R, (-) edema, cap refill < 3 seconds Resp: Lungs CTA in all aguilar. On RA GI: Abdomen large, distended, NT, Ax4 bowel sounds, (-) CVA tenderness Musculoskeletal: 5/5 B/L UE strength, 5/5 B/L LE strength. No gait disturbance Skin: (-) rashes , (-) erythema. Psych: euthymic mood Results & Data Results & Data ([facility]) Vital Signs (Past 12 Hours) Vital Signs Temp Pulse Resp BP Pulse Ox O2 Del Method 06/01/22 08:22 Room Air 06/01/22 07:42 36.9 C 71 19 194/78 H 93 Room Air 06/01/22 05:45 163/77 H 06/01/22 05:13 203/87 H 06/01/22 02:16 36.6 C 64 18 153/76 H 94 Room Air 06/01/22 01:40 68 189/95 H 94 Room Air 06/01/22 01:16 74 202/96 H 93 Room Air 05/31/22 22:21 143/78 H Diagnostic Findings Laboratory Results WBC 7.75 K/ul (4.8-10.8) 06/01/22 07:12 RBC 3.80 M/uL (4.63-6.08) L 06/01/22 07:12 Hgb 12.5 g/dl (14.0-18.0) L 06/01/22 07:12 POC Hgb 11.6 g/dl (14.0-18.0) L 05/31/22 11:38 Hct 36.3 % (40.1-51.0) L 06/01/22 07:12 POC Hct 34 % (42-52) L 05/31/22 11:38 MCV 95.5 fL (80.0-100.0) 06/01/22 07:12 MCH 32.9 pg (25.0-34.0) 06/01/22 07:12 MCHC 34.4 g/dL (32.0-36.0) 06/01/22 07:12 RDW Std Deviation 45.2 fL (36.4-46.3) 06/01/22 07:12 RDW Coeff of Alesia 12.8 % (11.5-14.5) 06/01/22 07:12 Plt Count 159 K/uL (130-400) 06/01/22 07:12 MPV 9.3 fL (9.4-12.4) L 06/01/22 07:12 Immature Gran % (Auto) 0.4 % 05/31/22 11:15 Neut % (Auto) 67.8 % 05/31/22 11:15 Lymph % (Auto) 15.1 % 05/31/22 11:15 [place] % (Auto) 12.4 % 05/31/22 11:15 Eos % (Auto) 3.6 % 05/31/22 11:15 Baso % (Auto) 0.7 % 05/31/22 11:15 Neut # (Auto) 6.04 K/uL (1.4-6.5) 05/31/22 11:15 Lymph # (Auto) 1.34 K/uL (1.2-3.4) 05/31/22 11:15 [place] # (Auto) 1.10 K/uL (0.24-0.82) H 05/31/22 11:15 Eos # (Auto) 0.32 K/uL (0-0.50) 05/31/22 11:15 Baso # (Auto) 0.06 K/uL (0-0.2) 05/31/22 11:15 Immature Gran # (Auto) 0.04 K/uL (0.00-0.02) H 05/31/22 11:15 PT 10.9 Seconds (9.0-12.0) 05/31/22 11:15 INR 1.0 (0.9-1.1) 05/31/22 11:15 POC Sodium 134 mmol/L (135-144) L 05/31/22 11:38 Sodium 133 mmol/L (136-145) L 06/01/22 07:12 POC Potassium 4.7 mmol/L (3.3-5.0) 05/31/22 11:38 Potassium 4.1 mmol/L (3.5-5.1) 06/01/22 07:12 POC Chloride 99 mmol/L (101-112) L 05/31/22 11:38 Chloride 101 mmol/L (98-107) 06/01/22 07:12 Carbon Dioxide 25 mmol/L (21-32) 06/01/22 07:12 POC Total CO2 24 mmol/L (24-31) 05/31/22 11:38 Anion Gap 7 (3-11) 06/01/22 07:12 POC Anion Gap 17.0 mmol/L (16-25) 05/31/22 11:38 POC BUN 22 mg/dl (7-18) H 05/31/22 11:38 BUN 19 mg/dl (6-23) 06/01/22 07:12 Creatinine 0.96 mg/dl (0.6-1.4) 06/01/22 07:12 POC Creatinine 1.1 mg/dl (0.6-1.3) 05/31/22 11:38 Est Cr Clr Drug Dosing 77.2 ml/min 06/01/22 07:12 Est GFR ( Amer) 90.5 ml/min 06/01/22 07:12 Est GFR (Non-Af Amer) 78.1 ml/min 06/01/22 07:12 BUN/Creatinine Ratio 19.8 (10-20) 06/01/22 07:12 Glucose 161 mg/dl (70-99(Fasting)) H 06/01/22 07:12 POC Glucose 151 mg/dl (70-99) H 06/01/22 07:26 POC Glucose (other) 164 mg/dl (70-99) H 05/31/22 11:38 Lactate 0.7 mmol/L (0.4-2.0) 06/01/22 07:12 Calcium 9.3 mg/dl (8.5-10.1) 06/01/22 07:12 POC Ioniz Calcium [place] 1.20 mmol/l (1.12-1.32) 05/31/22 11:38 Phosphorus 2.9 mg/dl (2.5-4.9) 06/01/22 07:12 Magnesium 1.7 mg/dl (1.7-2.4) 06/01/22 07:12 Total Bilirubin 0.7 mg/dl (0.2-1.0) 05/31/22 11:15 AST 14 U/L (13-39) 05/31/22 11:15 ALT 20 U/L (7-52) 05/31/22 11:15 Alkaline Phosphatase 50 U/L (34-104) 05/31/22 11:15 Troponin I High Sens 8.3 pg/ml (0-20) D 05/31/22 11:15 Total Protein 6.5 gm/dl (6.0-8.3) 05/31/22 11:15 Albumin 3.7 gm/dl (3.4-5.0) 05/31/22 11:15 Globulin 2.8 gm/dl (2.5-4.0) 05/31/22 11:15 Albumin/Globulin Ratio 1.3 (0.9-2) 05/31/22 11:15 Procalcitonin < 0.05 ng/ml (0-0.5) 05/31/22 11:15 TSH 6.038 uIu/ml (0.300-4.500) H 05/31/22 11:15 Free T4 1.02 ng/dl (0.61-1.60) 05/31/22 11:15 Urine Color Yellow 05/31/22 12:47 Urine Appearance Clear (Clear) 05/31/22 12:47 Urine pH 5.5 (4.5-7.5) 05/31/22 12:47 Ur Specific [place] 1.039 (1.000-1.030) H 05/31/22 12:47 Urine Protein 1+ (Negative) H 05/31/22 12:47 Urine Glucose (UA) Trace (Negative) H 05/31/22 12:47 Urine Ketones Negative (Negative) 05/31/22 12:47 Urine Blood Negative (Negative) 05/31/22 12:47 Urine Nitrite Negative (Negative) 05/31/22 12:47 Urine Bilirubin Negative (Negative) 05/31/22 12:47 Urine Urobilinogen Negative (Negative) 05/31/22 12:47 Ur Leukocyte Esterase Negative (Negative) 05/31/22 12:47 Urine WBC (Auto) 1-5 /hpf (0-5) 05/31/22 12:47 Urine RBC (Auto) 0-4 /hpf (0-4) 05/31/22 12:47 U Hyaline Cast (Auto) 1-5 /lpf (0-5) 05/31/22 12:47 U Epithel Cells (Auto) >30 /lpf (0-5) H 05/31/22 12:47 Urine Bacteria (Auto) Negative (Negative) 05/31/22 12:47 SARS-CoV-2, RNA, NAAT NEGATIVE (NEGATIVE) 05/31/22 11:24 Impressions Chest CTA 05/31/22 11:17 CT angio chest PE protocol CT DOSE: 693.94 mGy.cm HISTORY: 71 years-old Male with PE, lightheaded/low BP, pain, recent CPR. Acute shortness of breath TECHNIQUE: Multiple CTA images of the chest were obtained after the intravenous administration of 110 ml Optiray. Coronal and sagittal MIPS were obtained from the axial data set and were submitted for review. All measurements were obtained according to NASCET criteria. A dose lowering technique was utilized adhering to the principles of ALARA. COMPARISON: Chest CT 03/12/2020 FINDINGS: CTA: Heart is mildly enlarged. No pericardial effusion. Moderate to extensive coronary artery calcifications. Atherosclerosis of the thoracic aorta without aneurysm. Unremarkable pulmonary artery without pulmonary emboli identified. CT CHEST: No thyroid nodule or lymphadenopathy identified. Congestion mild pulmonary emphysema. Trace right pleural effusion. No pneumothorax or overt pulmonary edema. Bronchial wall thickening with bibasilar mucous plugging and subsegmental atelectasis. Subpleural cystic changes within the right lung base with subpleural reticulation and punctate calcified granulomata. No suspicious pulmonary nodules or masses identified. No acute process of the imaged upper abdomen. Hepatomegaly with hepatic steatosis. Indeterminate 1.3 cm nodule with central macroscopic fat attenuation within the upper abdominal omentum, likely benign. Degenerative changes of the shoulders and spine. Acute nondisplaced fractures of the anterior right third through sixth ribs. IMPRESSION: 1. Acute nondisplaced fractures of the right anterior third through sixth ribs. No pneumothorax. 2. No pulmonary emboli identified. 3. Bronchial wall thickening with bibasilar mucous plugging. 4. Trace right pleural effusion. 5. Hepatic steatosis. ACT 112: Negative or not required by law. The above report was generated using voice recognition software. It may contain grammatical, syntax or spelling errors. Electronically signed by: Jacob Cleveland M.D. 05/31/2022 12:40 PM Chest X-Ray 05/31/22 16:16 XR chest 1V portable CLINICAL HISTORY: syncope TECHNIQUE: Single frontal radiograph of the chest was obtained. Comparison: Comparison is made to chest radiograph 05/27/2022 FINDINGS: No lines and tubes are seen. Cardiomegaly is noted. Faint bibasilar airspace opacities are seen. Prominence of the pulmonary vasculature is noted. No evidence of pleural effusion or pneumothorax. IMPRESSION: 1. Faint bibasilar airspace opacities which may represent atelectasis, pneumonia, and/or aspiration. 2. Mild pulmonary edema is seen. Stable cardiomegaly. ACT 112: Negative or not required by law. Electronically signed by: Luther Marcial M.D. 05/31/2022 5:00 PM Medications Administered Current Inpatient Medications Acetaminophen (Acetaminophen 325 Mg Tab) 650 mg PO Q4H PRN PRN Reason: Mild Pain or Fever Stop: 06/30/22 16:15 Hydrocodone Bitart/Acetaminophen (Hydrocodone/Acetamophen 5/325mg Tab) 1 tab PO Q4H PRN PRN Reason: Pain Stop: 06/15/22 08:41 Al Hydrox/Mg Hydrox/Simethicone (Aluminum/Magnesium Susp 30 Ml Udc) 15 ml PO Q4H PRN PRN Reason: Dyspepsia Stop: 06/30/22 16:15 Albuterol (Albuterol Hfa 8 Gm Inhaler) 2 puffs INH Q6 PRN; Protocol PRN Reason: SOB/Wheezing,cough Stop: 06/30/22 15:01 Aspirin (Aspirin 81 Mg Ectab) [facility] Stop[facility] 07/01/22 08:59 Last Admin: 06/01/22 10:24 Dose: 81 mg Atorvastatin Calcium (Atorvastatin 40 Mg Tab) 80 mg PO QAM [facility] Stop: 07/01/22 08:59 Last Admin: 06/01/22 08:25 Dose: 80 mg Carvedilol (Carvedilol 12.5 Mg Tab) 18.75 mg PO [facility] Stop: 06/30/22 20:59 Last Admin: 06/01/22 08:24 Dose: 18.75 mg Cyanocobalamin (Cyanocobalamin (B-12) 500 Mcg Tablet) 1,000 mcg PO DAILY [facility] Stop: 07/01/22 08:59 Last Admin: 06/01/22 08:24 Dose: 1,000 mcg Dextrose (Dextrose 50% 50 Ml Syringe) 25 - 50 ml IV UD PRN; Protocol PRN Reason: Hypoglycemia Protocol Stop: 06/30/22 16:15 Diclofenac Sodium (Diclofenac Sod 1% Gel 100 Gm Tube) 4 gm EXT Q6 [facility]; Protocol Stop: 06/30/22 17:59 Last Admin: 06/01/22 05:04 Dose: 4 gm Ferrous Sulfate (Ferrous Sulfate 325 Mg Tab) 325 mg PO Q48H [facility] Stop: 07/01/22 16:59 Fluticasone Furoate (Fluticasone Furoate 200mcg 14 Puffs/Inhaler) 1 puffs INH DAILY [facility]UD[facility]; Protocol Stop: 07/01/22 08:59 Last Admin: 06/01/22 08:26 Dose: 1 puffs Glucagon (Glucagon For Inj 1 Mg Vial) 1 mg SQ UD PRN; Protocol PRN Reason: Hypoglycemia Protocol Stop: 06/30/22 16:15 Glucose (Glucose 40% Gel 15 Gm Tube) 15 - 30 gm PO UD PRN; Protocol PRN Reason: Hypoglycemia Protocol Stop: 06/30/22 16:15 Glucose (Glucose 10 Tab/Tube) 4 - 8 tab PO UD PRN; Protocol PRN Reason: Hypoglycemia Treatment Stop: 06/30/22 16:15 Sodium Chloride (Nss 1000ml) 1,000 mls @ 80 mls/hr IV .[id number] [facility] Stop: 06/01/22 15:44 Last Infusion: 06/01/22 05:26 Dose: Infused Insulin Aspart (Insulin Aspart Per Unit) 0 units SC ACHS [facility] Stop: 06/30/22 16:59 Last Admin: 06/01/22 08:38 Dose: 5 units Insulin Glargine (Lantus Per Unit Charge) 15 units SQ BID [facility] Stop: 06/30/22 20:59 Last Admin: 06/01/22 08:37 Dose: 15 units Isosorbide Mononitrate (Isosorbide [place] Extended Rel 30 Mg Tabcr) 30 mg PO QAM [facility] Stop: 07/01/22 08:59 Last Admin: 06/01/22 08:25 Dose: 30 mg Lidocaine (Lidocaine 5% 1 Patch) 1 patch TD QAM [facility] Stop: 06/30/22 14:59 Last Admin: 06/01/22 08:26 Dose: 1 patch Lorazepam (Lorazepam 1 Mg Tab) 1 mg PO 1200,2100 PRN PRN Reason: anxiety/insomnia Stop: 06/30/22 15:01 Last Admin: 05/31/22 19:59 Dose: 1 mg Losartan Potassium (Losartan Potassium 50 Mg Tab) 50 mg PO DAILY [facility] Stop: 07/01/22 08:59 Last Admin: 06/01/22 08:25 Dose: 50 mg Magnesium Hydroxide (Magnesium Hydroxide Susp 30 Ml Udc) 30 ml PO Q12H PRN PRN Reason: Constipation Stop: 06/30/22 16:15 Magnesium Oxide (Magnesium Oxide 400 Mg Tab) 400 mg PO AMHS [facility] Stop: 06/30/22 20:59 Last Admin: 06/01/22 08:24 Dose: 400 mg Miscellaneous (Remove Lidoderm Patch) 1 each N/A DAILY@2100 [facility] Stop: 06/30/22 20:59 Last Admin: 05/31/22 20:22 Dose: 1 each Miscellaneous (Remove Nicoderm Patch) 1 each N/A DAILY@0859 [facility] Stop: 07/01/22 08:58 Last Admin: 06/01/22 08:31 Dose: 1 each Miscellaneous (Carbohydrates For Hypoglycemia ) 15 - 30 gm PO UD PRN PRN Reason: Hypoglycemia Protocol Stop: 06/30/22 16:15 Miscellaneous Information (Pharmacy Glycemic Mgmt Consult) 1 each N/A UD PRN PRN Reason: Consult Stop: 06/30/22 16:15 Nicotine (Nicotine 14 Mg/24 Hr Patch) 14 mg TD QAM [facility] Stop: 07/01/22 08:59 Last Admin: 06/01/22 08:26 Dose: Not Given Ondansetron HCl (Ondansetron Inj 2 Mg/Ml 2 Ml Vial) 4 mg IV Q6H PRN PRN Reason: Nausea Stop: 06/30/22 16:15 Pantoprazole Sodium (Pantoprazole 40 Mg Tab) 40 mg PO DAILY [facility] Stop: 07/01/22 08:59 Last Admin: 06/01/22 08:24 Dose: 40 mg Polyethylene Glycol (Polyethylene (Miralax) 17 Gm Pack) 17 gm PO DAILY [facility] Stop: 07/01/22 09:44 Last Admin: 06/01/22 10:24 Dose: 17 gm Sertraline HCl (Sertraline Hcl 100 Mg Tablet) 100 mg PO DAILY [facility] Stop: 07/01/22 08:59 Last Admin: 06/01/22 08:27 Dose: 100 mg (1) Ribs, multiple fractures Encounter type: initial encounter Fracture type: closed Laterality: right Qualified Code(s): S22.41XA - Multiple fractures of ribs, right side, initial encounter for closed fracture
--- NOTE | 2022-06-01 11:55 | Cardiology Consultation ---
Date of Consultation June 01, 2022 Assessment & Plan (1) Ribs, multiple fractures: (2) Syncope: (3) ASCVD (arteriosclerotic cardiovascular disease): Plan Complex 71 year old male readmitted to [facility] on 05/31/2022 with chest/rib discomfort secondary to multiple right sided rib fractures as a result of CPR during suspected vasovagal syncope episode sustained during outpatient PFT's on 05/27/2022. I note my concern for the development of pneumonia/respiratory failure in this patient. Pain management is imperative, along with aggressive pulmonary support. Pain management as per hospitalist/pain management. I would not escalate his outpatient antihypertensive regimen at this point. Further recommendations as per Dr. Astorga and the patient's ongoing hospitalization. Supervising Physician Co-Signing Physician Notes Patient was seen and personally reviewed. Assessment and plan as above. Blood pressure trending towards good control with plan as above. Current issues exacerbated by pain of recent injuries in association with CPR. Mild orthostasis on standing, no arrhythmias on telemetry. No current changes in medication History of Present Illness Reason for Consultation: Syncope Requesting Physician: Alena Attending Physician: Elizabeth History of Present Illness Mr. Kaden Badillo was admitted to [facility] 05/27/2022 to 05/28/2022 after experiencing a syncope event occurring in the setting of volume depletion, in the midst of forced hyperventilation during pulmonary function testing. During that event patient received 30 to 45 seconds of CPR. EKG was without acute change. High-sensitivity troponin negative. Resting echocardiography unchanged. Telemetry benign. Chest x-ray at that time revealed cardiomegaly without acute process. Patient discharged with recommendation to obtain a 14-day ZIO monitor to assess for arrhythmias though suspected etiology of syncopal episode was vasovagal. Upon presentation for ZIO monitoring the patient was noted to be ill-appearing, pale, diaphoretic, hypotensive, near syncopal. Patient evaluated by Dr. Banks with systolic blood pressure reported in the 70s. Glucose 190. EKG without acute changes. Patient received normal saline solution via a peripheral IV while awaiting transport to the [facility] ER. Initial blood pressure upon presentation to the ER was 120/66 with markedly labile blood pressures obtained throughout the hospitalization thus far. Systolic BP during this readmission has ranged from 120 to a high of 216/88. Patient notes significant right sided chest wall pain. CT with acute nondisplaced fractures of the right anterior third through sixth ribs. No pneumothorax. No PE. Bronchial wall thickening with bibasilar mucous plugging observed along with a trace right pleural effusion and hepatic steatosis. Follow-up chest x-ray revealed faint bibasilar airspace opacities which may represent atelectasis, pneumonia, or aspiration along with mild pulmonary edema and stable cardiomegaly as reported by radiology. Pain Management has been consulted. Cardiology consultation requested as well with the reason listed for consultation being syncope. Patient denies further syncope episodes since the one prompting admission on 05/27/2022. Patient with significant chest/rib discomfort. No overt angina. No worsening shortness of breath. No worsening to his chronic cough. Patient aware of the significantly increased risk of pneumonia. No orthopnea, PND, or peripheral edema. No fevers. No hemoptysis. High-sensitivity troponin I normal at 8.3 pg/ml. EKG on present ation on 05/31/2022 at 11:05:28 revealed normal sinus rhythm at 60 bpm with stable T wave abnormality laterally. Past Medical and Surgical History: ASCVD. History of NSTEMI , PCI with a bare metal stent to the OM1 on 02/03/12 at [facility]. Patent OM1 stent with mild nonobstructive CAD noted elsewhere via the [place] [facility] [place] abnormal [place] stress testing Diastolic congestive heart failure. Asymptomatic ventricular ectopy, with preserved LV systolic function Hypertension. Losartan discontinued in June 2021 due to orthostatic hypotension. Dyslipidemia. Hypertriglyceridemia. Mild bilateral internal carotid artery disease. Iron deficiency anemia. Past intracranial hemorrhage, requiring craniotomy, 2007 Type 2 diabetes mellitus, with retinopathy, neurological disease Prior rash, possible drug reaction to metoprolol - tolerating carvedilol History of tobacco abuse, COPD, recurrent bronchitis GERD Esophageal obstruction, Schatzki's ring Hypomagnesemia Status post elective right [place] [facility] [place]. Erectile dysfunction BPH with LUTS Mood disorder Generalized anxiety disorder Chronic low back pain. Status post 11/07/2021 right knee PRP injection by Dr. Munoz Rotator cuff surgery Sensorineural hearing loss, bilateral Laser eye surgery Carpal tunnel syndrome status post surgery Deviated nasal septum Family History: Mother with dementia. Father at 74, AAA. Brother with COPD. Brother with CAD. Social History: to Gabi. Two children. Former smoker, quit on 08/24/1988 after smoking 1 ppd x 25 years Former snuff user. Prior heavy drinker, quitting in 1992. Allergies Allergy/AdvReac Type Severity Reaction Status Date / Time formoterol Allergy Intermediate RASH Verified 02/16/22 12:01 Penicillins Allergy Intermediate Unknown Verified 05/27/22 17:12 simvastatin Allergy Intermediate RASH Verified 02/16/22 12:01 lisinopril Allergy Unknown . Verified 05/27/22 17:12 Home Medications Medication Instructions Recorded Confirmed Type albuterol sulfate 90 mcg/actuation 2 puff inhalation Q6 PRN 02/09/19 05/31/22 History aerosol inhaler (Ventolin HFA) SOB/Wheezing,cough atorvastatin 80 mg tablet 80 mg PO QAM 02/09/19 05/31/22 History carvedilol 12.5 mg tablet 18.75 mg PO AMHS 02/09/19 05/31/22 History glipizide 10 mg tablet 5 mg PO BID 02/09/19 05/31/22 History insulin glargine 100 unit/mL 55 unit subcut HS 02/09/19 05/31/22 History subcutaneous solution (Lantus U-100 Insulin) isosorbide mononitrate 30 mg 30 mg PO QAM 02/09/19 05/31/22 History tablet,extended release 24 hr lorazepam 1 mg tablet 1 mg PO BID PRN anxiety/insomnia 02/09/19 05/31/22 History metformin 1,000 mg tablet 1,000 mg PO BIDM 02/09/19 05/31/22 History nitroglycerin 0.4 mg sublingual 0.4 mg sublingual UD PRN chesst 02/09/19 05/31/22 History tablet pain pantoprazole 40 mg tablet,delayed 40 mg PO DAILY 02/09/19 05/31/22 History release aspirin 81 mg tablet,delayed 81 mg PO QAM 03/08/19 05/31/22 History release hydrocodone 5 mg-acetaminophen 325 1 tab PO Q6 PRN Pain, Moderate 03/08/19 05/31/22 History mg tablet mecobalamin (vitamin B12) 1,000 1,000 mcg PO DAILY 09/25/20 05/31/22 History mcg chewable tablet hydroxyzine HCl 50 mg tablet 50 mg PO Q6 PRN Anxiety 02/01/21 05/31/22 History polyethylene glycol 3350 17 17 g PO UD 02/01/21 05/31/22 History gram/dose oral powder (Miralax) sertraline 100 mg tablet 100 mg PO DAILY 02/01/21 05/31/22 History budesonide 180 mcg/actuation 2 inh inhalation BID 05/27/22 05/31/22 History breath activated powder inhaler (Pulmicort Flexhaler) budesonide 180 mcg/actuation 2 inh inhalation BID 05/27/22 05/31/22 History breath activated powder inhaler (Pulmicort Flexhaler) ferrous sulfate 325 mg (65 mg 325 mg PO Q OTHER DAY 05/27/22 05/31/22 History iron) tablet losartan 100 mg tablet 50 mg PO DAILY 05/27/22 05/31/22 History magnesium oxide 400 mg PO AMHS 05/27/22 05/31/22 History diclofenac sodium 1 % topical gel 4 g EXT Q6 PRN pain #100 grams 05/28/22 05/31/22 Rx (Voltaren Arthritis Pain) nicotine 7 mg/24 hr daily 14 mg transdermal QAM #14 ea 05/28/22 05/31/22 Rx transdermal patch Patient History Medical History BPH (benign prostatic hypertrophy) CAD (coronary artery disease) Chronic constipation Chronic 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 COPD (chronic obstructive pulmonary disease) Coronary artery disease, occlusive "s/p stent" DM type 2 (diabetes mellitus, type 2) GERD (gastroesophageal reflux disease) 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 Hypotension Lumbago Mood disorder Ribs, multiple fractures Sensorineural hearing loss of both ears Tobacco use disorder Surgical History H/O inguinal hernia repair History of carpal tunnel surgery S/P cardiac cath S/P total knee arthroplasty Stented coronary artery Family History Other COPD (chronic obstructive pulmonary disease) Diabetes Heart disease Rheumatoid arthritis Social History Smoking Status: Former smoker Tobacco Type: Cigarettes Number of Years Since Quit: 31; Hx Alcohol Use: No Hx Substance Use: No Preferred Language: Tam[place] Communication Ability: Effective 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 Physical Exam Physical Exam: General: NAD. A&Ox3. [place]. HEENT: Conjunctiva are pale. Sclera clear. No JVD. Mucous membranes are somewhat dry. Lungs: Somewhat limited. Clear. No rales. No wheeze. Cardiac: RRR, 70 bpm. No murmurs. No rub. Abdomen: +BS. Soft. Nontender. No masses. Extremities: No edema. No clubbing. No cyanosis Neuro: Grossly normal exam Psych: Appropriate affect and insight. Results & Data ([facility]) Vital Signs (Past 12 Hours) Vital Signs Temp Pulse Pulse Resp BP Pulse Ox O2 Del Method 06/01/22 06:10 66 06/01/22 11:27 36.5 C 68 18 120/70 94 Room Air 06/01/22 08:22 Room Air 06/01/22 07:42 36.9 C 71 19 194/78 H 93 Room Air 06/01/22 05:45 163/77 H 06/01/22 05:13 203/87 H 06/01/22 02:16 36.6 C 64 18 153/76 H 94 Room Air 06/01/22 01:40 68 189/95 H 94 Room Air 06/01/22 01:16 74 202/96 H 93 Room Air Diagnostic Findings Telemetry: Sinus rhythm ranging from a low of 49 bpm, predominately n the 70's. No atrial fibrillation. (1) Ribs, multiple fractures Encounter type: initial encounter Fracture type: closed Laterality: right Qualified Code(s): S22.41XA - Multiple fractures of ribs, right side, initial encounter for closed fracture (2) Syncope Syncope type: vasovagal syncope Qualified Code(s): R55 - Syncope and collapse
[2022-06-01] MEDS: HYDROCODONE/ACETAMOPHEN 5/325MG TAB PO PRN ×2 (12:21→17:10)
--- NOTE | 2022-06-01 14:19 | Pharmacy Report ---
Pharmacy Glycemic Short Note 2 - Date of Service June 01, 2022 - Glycemic Short BSG Results (Last 24 hours): 05/31/22 05/31/22 05/31/22 17:34 17:36 20:05 Glucose POC Glucose 68 L* 82 129 H 06/01/22 06/01/22 06/01/22 01:06 04:47 07:12 Glucose 161 H POC Glucose 81 159 H 06/01/22 06/01/22 07:26 11:12 Glucose POC Glucose 151 H 263 H OUTPATIENT ANTIDIABETIC REGIMEN: * glipizide 5 mg PO BID * metformin 1000 mg PO BID * Lantus 55 units HS ASSESSMENT: * Mr Badillo is a 71 y/o M admitted with syncope. * Patient's BSG on admission was 164 mg/dL. He received 15 units of Lantus on 05/31. * Continue Lantus 15 units BID (this is weight-based stress of 2 dosing) with a dose of 20 units available for BSG > 160 mg/dL. * Novolog weight-based stress of 3 CR and 2 CF. Tighter CR since patient on glipizide at home. PLAN FOR INPATIENT GLYCEMIC CONTROL: * Hold outpatient oral diabetes medications * Basal insulin * Lantus 15 units SQ BID (20 units if BSG > 160 mg/dL) * Bolus insulin * NovoLog per scale ACHS or Q6hrs while NPO * Goal Range: Low 110 mg/dL - High 140 mg/dL * Correction Factor: 25 mg/dL/unit * Nutritional / Prandial insulin per carb ratio of 1 unit per 6 grams CHO consumed
[2022-06-01] MEDS ORDERED: FERROUS SULFATE 325 MG TAB PO SCH (17:00)
[2022-06-01] MEDS: LORazepam 1 MG TAB PO PRN (20:41)
[2022-06-02] MEDS: DICLOFENAC SOD 1% GEL 100 GM TUBE EXT SCH ×3 (00:02→12:42)
[2022-06-02] MEDS: HYDROCODONE/ACETAMOPHEN 5/325MG TAB PO PRN ×2 (00:02→08:29)
[2022-06-02] MEDS: ASPIRIN 81 MG ECTAB PO SCH (07:59)
[2022-06-02] MEDS: carvediloL 12.5 MG TAB PO SCH (07:59)
[2022-06-02] MEDS: SERTRALINE HCL 100 MG TABLET PO SCH (07:59)
[2022-06-02] MEDS: LOSARTAN POTASSIUM 50 MG TAB PO SCH (07:59)
[2022-06-02] MEDS: PANTOprazole 40 MG TAB PO SCH (07:59)
[2022-06-02] MEDS: CYANOCOBALAMIN (B-12) 500 MCG TABLET PO SCH (08:00)
[2022-06-02] MEDS: ATORVASTATIN 40 MG TAB PO SCH (08:00)
[2022-06-02] MEDS: MAGNESIUM OXIDE 400 MG TAB PO SCH (08:00)
[2022-06-02] MEDS: LIDOCAINE 5% 1 PATCH TD SCH (08:01)
[2022-06-02] MEDS: FLUTICASONE FUROATE 200MCG 14 PUFFS/INHALER INH SCH (08:01)
[2022-06-02] MEDS: POLYETHYLENE (MIRALAX) 17 GM PACK PO SCH (08:01)
[2022-06-02] MEDS: NICOTINE 14 MG/24 HR PATCH TD SCH (08:02)
[2022-06-02] MEDS: LANTUS PER UNIT CHARGE SQ SCH (08:19)
[2022-06-02] MEDS: INSULIN ASPART PER UNIT SC SCH ×2 (08:20→12:41)
[2022-06-02 09:04] LABS: BUN Creatinine Ratio 16.8 (10-20); Calcium 9.4 mg/dl (8.5-10.1); Creatinine Clr Calc Pharmacy 69.2 ml/min; Est GFR (African American) 79.4 ml/min; Est GFR (Non-African American) 68.5 ml/min; Magnesium 1.8 mg/dl (1.7-2.4); Phosphorus 3.4 mg/dl (2.5-4.9); Potassium 5.1 mmol/L (3.5-5.1)
[2022-06-02] MEDS: ISOSORBIDE MONO EXTENDED REL 30 MG TABCR PO SCH (09:30)
--- NOTE | 2022-06-02 10:18 | Cardiology Progress Note ---
Date of Service June 02, 2022 Assessment & Plan (1) Ribs, multiple fractures: (2) Syncope: (3) ASCVD (arteriosclerotic cardiovascular disease): Plan 71 year old male readmitted to [facility] on 05/31/2022 with chest/rib discomfort secondary to multiple right sided rib fractures as a result of CPR during suspected vasovagal syncope episode sustained whilst performing outpatient PFT's on 05/27/2022. Pain management and aggressive pulmonary toilet recommended. Pain management as per hospitalist/pain management. I would not escalate his outpatient antihypertensive regimen. Outpatient Zio monitor to be completed at the time of outpatient cardiology follow-up. Please contact with any questions or concerns. Admission and Anticipated Discharge Date Admission Date: May 31, 2022 Supervising Physician Co-Signing Physician Notes Patient seen and examined, chart, medications, telemetry reviewed. Feels better this morning pleuritic pain less pronounced. No dizziness or lightheadedness. Patient ambulatory in room and hallway and feeling improved as above stable for discharge. Subjective Patient seen and examined. Chart, medications, and telemetry reviewed. Feels better. Less chest pain. Does not hurt as much to cough. No palpitations. No unusual shortness of breath. No orthopnea, PND, or peripheral edema. No dizziness or near syncope. Telemetry: Sinus, sinus bradycardia into the 50's overnight, currently in the 70's. Review of Systems Review of Systems: Complete Review of Systems is as stated above, negative, or noncontributory. Physical Exam Physical Exam: General: NAD. A&Ox3. [place]. HEENT: Conjunctiva are pale. Sclera clear. No JVD. Lungs: Diminished. Decreased. Clear. Cardiac: RRR, 70 bpm. No murmurs. No rub. Abdomen: +BS. Soft. Nontender. No masses. Extremities: No edema. No clubbing. No cyanosis Neuro: Grossly normal exam Psych: Appropriate affect and insight. Results & Data ([facility]) Vital Signs (Past 12 Hours) Vital Signs Temp Pulse Pulse Resp BP Pulse Ox O2 Del Method 06/02/22 07:52 38.1 C H 69 18 181/84 H 93 Room Air 06/02/22 06:29 56 L 06/02/22 02:23 36.7 C 55 L 20 149/84 H 96 Room Air 06/01/22 23:35 61 06/01/22 22:41 36.5 C 56 L 18 150/88 H 98 Room Air Laboratory Results Comprehensive Metabolic Panel 06/02/22 Range/Units 07:14 Sodium 133 L (136-145) mmol/L Potassium 5.1 D (3.5-5.1) mmol/L Chloride 100 (98-107) mmol/L Carbon Dioxide 28 (21-32) mmol/L BUN 18 (6-23) mg/dl Creatinine 1.07 (0.6-1.4) mg/dl Glucose 151 H (70-99(Fasting)) mg/dl Calcium 9.4 (8.5-10.1) mg/dl Intake and Output 06/01/22 06/02/22 06/02/22 22:59 06:59 14:59 Intake Total 450 / 1180 250 / 1180 340 / 340 Balance 450 / 780 250 / 780 340 / 340 Intake: Oral 450 / 1180 250 / 1180 340 / 340 Other: # Unmeasured Voids 1 Weight 92.8 kg Weight Measurement Method Standing Scale (1) Ribs, multiple fractures Encounter type: initial encounter Fracture type: closed Laterality: right Qualified Code(s): S22.41XA - Multiple fractures of ribs, right side, initial encounter for closed fracture (2) Syncope Syncope type: vasovagal syncope Qualified Code(s): R55 - Syncope and collapse
--- NOTE | 2022-06-02 12:47 | Hospitalist Progress Note ---
Date of Service June 02, 2022 Assessment & Plan (1) Ribs, multiple fractures: Plan: per Dr. Tamayo's notes with addendum: - Underwent CPR during last syncopal episode; 6 rib fractures. - s/p 75 mcg Fentanyl IV in ED; - Pain Management consult for evaluation for IC nerve block - declined - pain management with med adjustments - multimodal pain management with lidocain, voltaren, prn narcotics - Chest CT done in ED; no Pneumothorax/Hemothorax, no PE but Rib fractures of 3- 6 noted, nondisplaced - PT/OT 06/02/2022 Pain well controlled No hypoxia, no shortness of breath Discharge plan: Lidoderm patch daily x1 week As needed ibuprofen for mild to moderate pain As needed [place] for severe pain Continue frequent spirometry, flutter valve CT chest showing some mucous plugging: Mucinex, incentive spirometry/flutter valve, frequent ambulation Follow-up with PCP in 1 week (2) Hypotension: Plan: - was hypotensive in outpatient office; [place], dusky, pale, cool and clamy. - Received 600mL IV fluids; normotensive - lactic Acid 3.6 --> 0.7 after IVF - Pt is euvolemic on exam - blood cultures pending - low suspicion for infection at this time - UA negative - likely due to dehydration from decreased po in setting of pain from acute rib fractures 06/02/2022 Hypotension resolved Cardiology service consulted, no changes with BP medications (3) COPD (chronic obstructive pulmonary disease): Plan: - stable, not in exacerbation - continue home inhalers - follow up pulm as outpatient for PFTs (4) Coronary artery disease, occlusive: Plan: - stable, no chest pain - Continue aspirin 81mg, carvedilol, Imdur, losartan - continue statin Quill Machine Operator consulted (5) DM type 2 (diabetes mellitus, type 2): Plan: - Holding glipizide, metformin while inpatient - Patient takes Lantus SQ at home - lantus per pharmacy protocol - SSI with ACHS checks for now - A1C on 05/28/2022 was 6.7 Resume usual regimen Plan VTE Prophylaxis: Lovenox SQ Code Status: Full Code Dispo: Discharge to home with home health services Follow-up with PCP in 1 week PCP: Dr. Ruffin Admission and Anticipated Discharge Date Admission Date: May 31, 2022 Subjective Follow-up for hypotension, rib fractures, etc. Seen resting in bed, sitting up, having lunch, in good spirits States he feels much better overall Rib pain is mild to moderate, improved with the pain medicine No shortness of breath, cough, problems with swallowing Denies abdominal pain, nausea vomiting, diarrhea, problems with urination States he is ambulating well Observed ambulating in the room, no issues No other symptoms Other problems States that he is ready and would like to be discharged today Review of Systems Review of Systems: all noted and negative except for above Physical Exam Physical Exam: General- oriented x 3, not in distress, speaks in sentences with no effort or accessory muscle use Eyes- anicteric Neck- no JVD Lungs- clear breath sounds bilaterally, no crackles or wheezing Chest wall- no hematoma or erythema noted Heart- normal rate, regular rhythm; no murmurs Abdomen- normal bowel sounds, nondistended, soft, nontender Extremities- no pretibial edema, no calf tenderness Neuro- alert, oriented x 3; no gross focal neurologic deficits Skin- warm & dry Results & Data Results & Data ([facility]) Vital Signs (Past 12 Hours) Vital Signs Temp Pulse Pulse Resp BP Pulse Ox O2 Del Method 06/02/22 11:18 36.8 C 68 18 130/77 94 Room Air 06/02/22 07:58 Room Air 06/02/22 07:52 38.1 C H 69 18 181/84 H 93 Room Air 06/02/22 06:29 56 L 06/02/22 02:23 36.7 C 55 L 20 149/84 H 96 Room Air all noted and reviewed including below (1) Ribs, multiple fractures Encounter type: initial encounter Fracture type: closed Laterality: right Qualified Code(s): S22.41XA - Multiple fractures of ribs, right side, initial encounter for closed fracture
--- NOTE | 2022-06-02 13:01 | Discharge Summary ---
Discharge Summary Date of Service June 02, 2022 Notes For Next Care Provider Medication Changes From Visit Lidoderm patch 4% daily x1 week Mucinex 1200 mg twice daily x1 week Admission HPI Per Admitting Provider Mr. Pal is a 71-year-old male that presented to the [facility] ED as per recommendation by his outpatient multi spindle operator, Dr. Banks. He was at the [facility] cardiology office this morning for Holter monitor placement and was noted to be hypotensive with systolic blood pressure in the 70s and was dusky ventura in appearance. During my interview, he said that he became cool and clammy and felt disoriented since he was discharged from the hospital a few days ago. He also reports a decreased appetite. He reports that his blood sugars have been slightly elevated since he has been discharged from the hospital ranging in the 150s to 250s. He was recently admitted May 26 to the with a syncope and collapse with presumed vasovagal pulselessness and underwent CPR for about 35 seconds but was not in true cardiac arrest. During that time his EKG was normal sinus rhythm with some lateral T wave flattening. He did have an echocardiogram performed which showed an EF of 60 to 65% with grade 1 diastolic dysfunction. Additional PMH includes diabetes type 2 insulin-dependent, COPD, CHF (EF of 60-65%), CAD s/p stent, HTN,HLD, PVD, BPH, and anxiety. In the ED the patient did receive a CT scan as he was complaining of chest discomfort. The patient did sustain 3-6 rib fractures during the chest compressions a few days ago. No pneumothorax, hemothorax or PE was noted on the CT. Lactic acid is elevated at 3.6, blood cultures and urine culture pending however do not suspect this to be bacterial or infectious in nature. We will trend troponin levels; however first set was negative. Patient denies headache, dizziness, shortness of breath, palpitations, chest pain, nausea, vomiting, diarrhea, recent falls or trauma, or seizures. The patient will be admitted for further evaluation, pain control and specialist consultation. Please see A/P for further details and information. Admission Exam Per Admitting Provider Neuro: AAOx4, PERRLA, no aphagia, memory changes, CNII-XII grossly intact HEENT: head normocephalic, moist mucus membranes CV: S1/S2, (-) M/G/R, (-) edema, cap refill < 3 seconds Resp: Lungs CTA in all aguilar. On RA GI: Abdomen large, distended, NT, Ax4 bowel sounds, (-) CVA tenderness Musculoskeletal: 5/5 B/L UE strength, 5/5 B/L LE strength. No gait disturbance Skin: (-) rashes , (-) erythema. Psych: euthymic mood Principal Dx & Hospital Course #1 = Principal Diagnosis (1) Ribs, multiple fractures: per Dr. Tamayo's notes with addendum: - Underwent CPR during last admission for syncopal episode; 6 rib fractures. - Pain Management consult for evaluation for IC nerve block - declined - pain management with med adjustments - multimodal pain management with lidocain, voltaren, prn narcotics - Chest CT done in ED; no Pneumothorax/Hemothorax, no PE but Rib fractures of 3- 6 noted, nondisplaced - PT/OT: Recommend discharge to home with home health services 06/02/2022 Pain well controlled No hypoxia, no shortness of breath Discharge plan: Lidoderm patch daily x1 week As needed ibuprofen for mild to moderate pain As needed Sumner for severe pain Continue frequent spirometry, flutter valve CT chest showing some mucous plugging: Mucinex, incentive spirometry/flutter valve, frequent ambulation Follow-up with PCP in 1 week (2) Hypotension: - was hypotensive in outpatient office; ventura, dusky, pale, cool and clamy. - Received 600mL IV fluids; normotensive - lactic Acid 3.6 --> 0.7 after IVF - Pt is euvolemic on exam - blood cultures pending - low suspicion for infection at this time - UA negative - likely due to dehydration from decreased po in setting of pain from acute rib fractures 06/02/2022 Hypotension resolved Cardiology service consulted, no changes with BP medications (3) Abnormal finding on CT scan: Indeterminate 1.3 cm nodule with central macroscopic fat attenuation within the upper abdominal omentum, likely benign. Please refer to full report in the Ordered Studies section above Further work up, management, and ff up as outpatient (4) COPD (chronic obstructive pulmonary disease): - stable, not in exacerbation - continue home inhalers - follow up pulm as outpatient for PFTs (5) Coronary artery disease, occlusive: - stable, no chest pain - Continue aspirin 81mg, carvedilol, Imdur, losartan - continue statin Concentrator Operator consulted (6) DM type 2 (diabetes mellitus, type 2): - Holding glipizide, metformin while inpatient - Patient takes Lantus SQ at home - lantus per pharmacy protocol - SSI with ACHS checks for now - A1C on 05/28/2022 was 6.7 Resume usual regimen Plan VTE Prophylaxis: Lovenox SQ Code Status: Full Code Dispo: Discharge to home with home health services Follow-up with PCP in 1 week PCP: Dr. Ruffin Discharge Exam General- oriented x 3, not in distress, speaks in sentences with no effort or accessory muscle use Eyes- anicteric Neck- no JVD Lungs- clear breath sounds bilaterally, no crackles or wheezing Chest wall- no hematoma or erythema noted Heart- normal rate, regular rhythm; no murmurs Abdomen- normal bowel sounds, nondistended, soft, nontender Extremities- no pretibial edema, no calf tenderness Neuro- alert, oriented x 3; no gross focal neurologic deficits Skin- warm & dry Updated Medication List Medication Instructions Recorded Confirmed Type albuterol sulfate 90 mcg/actuation 2 puff inhalation Q6 PRN 02/09/19 05/31/22 History aerosol inhaler (Ventolin HFA) SOB/Wheezing,cough atorvastatin 80 mg tablet 80 mg PO QAM 02/09/19 05/31/22 History carvedilol 12.5 mg tablet 18.75 mg PO AMHS 02/09/19 05/31/22 History glipizide 10 mg tablet 5 mg PO BID 02/09/19 05/31/22 History insulin glargine 100 unit/mL 55 unit subcut HS 02/09/19 05/31/22 History subcutaneous solution (Lantus U-100 Insulin) isosorbide mononitrate 30 mg 30 mg PO QAM 02/09/19 05/31/22 History tablet,extended release 24 hr lorazepam 1 mg tablet 1 mg PO BID PRN anxiety/insomnia 02/09/19 05/31/22 History metformin 1,000 mg tablet 1,000 mg PO BIDM 02/09/19 05/31/22 History nitroglycerin 0.4 mg sublingual 0.4 mg sublingual UD PRN chesst 02/09/19 05/31/22 History tablet pain pantoprazole 40 mg tablet,delayed 40 mg PO DAILY 02/09/19 05/31/22 History release aspirin 81 mg tablet,delayed 81 mg PO QAM 03/08/19 05/31/22 History release hydrocodone 5 mg-acetaminophen 325 1 tab PO Q6 PRN Pain, Moderate 03/08/19 05/31/22 History mg tablet mecobalamin (vitamin B12) 1,000 1,000 mcg PO DAILY 09/25/20 05/31/22 History mcg chewable tablet hydroxyzine HCl 50 mg tablet 50 mg PO Q6 PRN Anxiety 02/01/21 05/31/22 History polyethylene glycol 3350 17 17 g PO UD 02/01/21 05/31/22 History gram/dose oral powder (Miralax) sertraline 100 mg tablet 100 mg PO DAILY 02/01/21 05/31/22 History budesonide 180 mcg/actuation 2 inh inhalation BID 05/27/22 05/31/22 History breath activated powder inhaler (Pulmicort Flexhaler) budesonide 180 mcg/actuation 2 inh inhalation BID 05/27/22 05/31/22 History breath activated powder inhaler (Pulmicort Flexhaler) ferrous sulfate 325 mg (65 mg 325 mg PO Q OTHER DAY 05/27/22 05/31/22 History iron) tablet losartan 100 mg tablet 50 mg PO DAILY 05/27/22 05/31/22 History magnesium oxide 400 mg PO AMHS 05/27/22 05/31/22 History diclofenac sodium 1 % topical gel 4 g EXT Q6 PRN pain #100 grams 05/28/22 05/31/22 Rx (Voltaren Arthritis Pain) nicotine 7 mg/24 hr daily 14 mg transdermal QAM #14 ea 05/28/22 05/31/22 Rx transdermal patch guaifenesin 1,200 mg tablet, 1,200 mg PO BID #14 tabs 06/02/22 Rx extended release 12 hr (Mucinex) lidocaine 4 % topical patch 1 patch topical DAILY 7 days #10 ea 06/02/22 Rx Hospital Stay Data Consultations 05/31/22 14:04 ED Decision to Admit Stat 05/31/22 14:45 Consult Pain Management Routine 05/31/22 16:16 Consult Cardiology Routine Diagnostic Imagining Performed 05/31/22 11:17 CT angio chest PE protocol Stat COMPARISON: Chest CT 03/12/2020 FINDINGS: CTA: Heart is mildly enlarged. No pericardial effusion. Moderate to extensive coronary artery calcifications. Atherosclerosis of the thoracic aorta without aneurysm. Unremarkable pulmonary artery without pulmonary emboli identified. CT CHEST: No thyroid nodule or lymphadenopathy identified. Congestion mild pulmonary emphysema. Trace right pleural effusion. No pneumothorax or overt pulmonary edema. Bronchial wall thickening with bibasilar mucous plugging and subsegmental atelectasis. Subpleural cystic changes within the right lung base with subpleural reticulation and punctate calcified granulomata. No suspicious pulmonary nodules or masses identified. No acute process of the imaged upper abdomen. Hepatomegaly with hepatic steatosis. Indeterminate 1.3 cm nodule with central macroscopic fat attenuation within the upper abdominal omentum, likely benign. Degenerative changes of the shoulders and spine. Acute nondisplaced fractures of the anterior right third through sixth ribs. IMPRESSION: 1. Acute nondisplaced fractures of the right anterior third through sixth ribs. No pneumothorax. 2. No pulmonary emboli identified. 3. Bronchial wall thickening with bibasilar mucous plugging. 4. Trace right pleural effusion. 5. Hepatic steatosis. ACT 112: Negative or not required by law. The above report was generated using voice recognition software. It may contain grammatical, syntax or spelling errors. Electronically signed by: Jacob Cleveland M.D. 05/31/2022 12:40 PM Pending Results Patient Have Any Pending Studies at Discharge: Yes Discharge Instructions Given to Patient (Per Discharging Provider) PLEASE REFER TO YOUR NEW MEDICATION LIST AND FOLLOW INSTRUCTIONS CAREFULLY. YOUR NEW MEDICATIONS INCLUDE: Lidoderm patch 4%-[id number], apply on painful areas of the ribs, x1 week Sumner-every 6 hours as needed for severe pain; no driving while taking this medication Mucinex-twice a day to help expectorate mucus Continue incentive spirometry and flutter valve frequently at home x1 week. Drink plenty of water 6 to 8 glasses/day. PLEASE CALL YOUR PRIMARY CARE PHYSICIAN OR RETURN TO THE ER IF WITH WORSENING OF SYMPTOMS, INCLUDING Increasing chest wall pain, shortness of breath, cough, fevers or chills, weakness, dizziness, etc. FOLLOW UP WITH PRIMARY CARE PHYSICIAN OUTLINED ABOVE. FOLLOW-UP WITH YOUR CREDIT UNDERWRITER SCHEDULED. Total Time Total Time Spent Total Time Spent (In Minutes): >30 minutes
[2022-06-02] MEDS ORDERED: LANTUS PER UNIT CHARGE SQ SCH (21:00)
== END 2022-06-02 14:37 | disposition home health service (06) | DRG 315 ==
LOC: ED 11:02 → SUATTDRO 14:11 → EDINP 14:11 → 2S 16:17

== ENCOUNTER 2022-08-06 11:56 | Inpatient (IN) ==
[2022-08-06] MEDS ORDERED: SODIUM CHLORIDE 0.9% 500 ML IV STA (11:59)
--- NOTE | 2022-08-06 12:08 | Emergency Department Note ---
Impression & Plan Syncope and collapse ADMIT ED Provider Note HPI: The patient is a 71-year-old gentleman with history of coronary artery disease, pulmonary fibrosis, COPD, type 2 diabetes, presents the emergency department after a syncopal event when he was at his PCPs office today. Per report patient was in the process of getting his orthostatic vital signs checked when he passed out. Patient states this is all he remembers. On arrival here to the ED the patient states he does not have any chest pain or shortness of breath and states he is feeling "better". Here to the ED the patient is alert, he is hemodynamically stable, he is in no acute distress. Per report, following the patient's syncopal event several seconds of CPR were initiated until it was obvious that the patient was not in cardiac arrest and therefore compressions were stopped. ROS: - Per HPI *Outpatient medications and allergy history reviewed. *Pertinent external medical records reviewed. 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 Patient has had history of similar events, according to the patient he has had 3 such syncopal events in the past several months. On arrival here to the ED the patient is alert, denies any current chest pain or shortness of breath. IV was established, lab work obtained, patient was placed on rn cardiac. EKG shows normal sinus rhythm without any evidence of interval prolongation or acute ischemic changes. Patient remained stable on telemetry. Lab work shows a normal troponin level. CT imaging of the head was obtained given syncopal event today, this does not show any evidence of any acute intracranial process, CT angiography of the chest does not show any evidence of pulmonary embolism. Patient was given IV fluids, on my reassessment he states he feels "tired" but otherwise appears well. Case was discussed with on-call [facility] cardiology the patient does follow with, Dr. Jorgensen, who recommends admission given the patient's medical history of coronary artery disease and recurrent syncopal events. Recommends telemetry admission and trending of troponins. Case was then discussed with [facility] hospitalist service for admission and the patient was placed for admission in stable condition for further care. Disposition discussion held by myself with: Patient and Diagnosis: 1. Syncope and collapse 2. History of coronary artery disease status post multiple stent Disposition: Admission Kana Mcneal DO Emergency Medicine Past Med/Surg History Medical History BPH (benign prostatic hypertrophy) CAD (coronary artery disease) Chronic constipation Chronic 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 COPD (chronic obstructive pulmonary disease) Coronary artery disease, occlusive "s/p stent" DM type 2 (diabetes mellitus, type 2) GERD (gastroesophageal reflux disease) 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 Hypotension Lumbago Mood disorder Ribs, multiple fractures Sensorineural hearing loss of both ears Tobacco use disorder Surgical History H/O inguinal hernia repair History of carpal tunnel surgery S/P cardiac cath S/P total knee arthroplasty Stented coronary artery Family History Other COPD (chronic obstructive pulmonary disease) Diabetes Heart disease Rheumatoid arthritis Social History Smoking Status: Current some day smoker Tobacco Type: Smokeless Tobacco (Dip or Chew) Hx Alcohol Use: No Hx Substance Use: No Preferred Language: Nauruan Communication Ability: Effective 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 Beliefs That Will Affect Care: None Current Living Situation: Spouse Feels Safe at Home: Yes Assistive Devices: Cane and Walker Allergies Allergies Allergy/AdvReac Type Severity Reaction Status Date / Time formoterol Allergy Intermediate RASH Verified 08/06/22 16:07 Penicillins Allergy Intermediate Unknown Verified 08/06/22 16:07 simvastatin Allergy Intermediate RASH Verified 08/06/22 16:07 lisinopril Allergy Unknown Unknown Verified 08/06/22 16:07 Home Meds Home Medications Medication Instructions Recorded Confirmed atorvastatin 80 mg tablet 80 mg PO QAM 02/09/19 08/06/22 insulin glargine 100 unit/mL 55 unit subcut HS 02/09/19 08/06/22 subcutaneous solution (Lantus U-100 Insulin) isosorbide mononitrate 30 mg 30 mg PO QAM 02/09/19 08/06/22 tablet,extended release 24 hr lorazepam 1 mg tablet 1 mg PO BID PRN anxiety/insomnia 02/09/19 08/06/22 metformin 1,000 mg tablet 1,000 mg PO BIDM 02/09/19 08/06/22 nitroglycerin 0.4 mg sublingual 0.4 mg sublingual DIRECTED PRN 02/09/19 08/06/22 tablet chesst pain pantoprazole 40 mg tablet,delayed 40 mg PO DAILY 02/09/19 08/06/22 release aspirin 81 mg tablet,delayed 81 mg PO QAM 03/08/19 08/06/22 release hydrocodone 5 mg-acetaminophen 325 1 tab PO Q6 PRN Pain, Moderate 03/08/19 08/06/22 mg tablet mecobalamin (vitamin B12) 1,000 1,000 mcg PO DAILY 09/25/20 08/06/22 mcg chewable tablet polyethylene glycol 3350 17 17 g PO DIRECTED 02/01/21 08/06/22 gram/dose oral powder (Miralax) sertraline 100 mg tablet 100 mg PO DAILY 02/01/21 08/06/22 ferrous sulfate 325 mg (65 mg 325 mg PO Q OTHER DAY 05/27/22 08/06/22 iron) tablet magnesium oxide 400 mg PO AMHS 05/27/22 08/06/22 carvedilol 3.125 mg tablet 3.125 mg PO AMHS 08/06/22 08/06/22 guaifenesin 1,200 mg tablet, 1,200 mg PO QPM 08/06/22 08/06/22 extended release 12 hr (Mucinex) nicotine 7 mg/24 hr daily 7 mg transdermal QA 08/06/22 08/06/22 transdermal patch triamcinolone acetonide 0.1 % 1 applic topical BID PRN STOMACH 08/06/22 08/06/22 topical cream RASH Previous Rx's Medication Instructions Recorded diclofenac sodium 1 % topical gel 4 g EXT Q6 PRN pain #100 grams 05/28/22 (Voltaren Arthritis Pain) albuterol sulfate 90 mcg/actuation 2 puff inhalation Q6 PRN 06/08/22 aerosol inhaler (Ventolin HFA) SOB/Wheezing,cough #6.7 grams umeclidinium 62.5 mcg/actuation 1 inh inhalation DAILY #30 ea 06/08/22 blister powder for inhalation (Incruse Ellipta) Results & Data (ED) Vital Signs Vital Signs - 24 hr 08/06/22 12:07 08/06/22 12:14 08/06/22 17:08 Temperature 36.8 C Temperature Source Oral Pulse Rate 60 60 Pulse Rate [Right Brachial] 75 Pulse Rhythm Regular Regular Pulse Rhythm [Right Brachial] Regular Pulse Strength Normal Pulse Strength [Right Brachial] Normal Respiratory Rate 19 19 Respiratory Effort / Characteristics Non-Labored Spontaneous Non-Labored Spontaneous Respiratory Depth Normal Normal Respiratory Pattern Regular Blood Pressure 136/81 Blood Pressure [Right Arm] 175/92 H Blood Pressure Mean 99 Blood Pressure Mean [Right Arm] 119 Blood Pressure Position Lying Blood Pressure Position [Right Arm] Lying Pulse Oximetry 93 93 99 Oxygen Delivery Method Room Air Room Air Room Air Sepsis Recent Fever Within 48 Hours No Sepsis New/Unexplained Change in Mental Status No Sepsis Action Taken by Nursing No Action Required Laboratory Data 08/06/22 12:08 08/06/22 12:08 Lab Results 08/06/22 08/06/22 08/06/22 Range/Units 12:08 12:08 12:08 WBC 7.78 (4.8-10.8) K/ul RBC 3.74 L (4.63-6.08) M/uL Hgb 12.1 L (14.0-18.0) g/dl Hct 35.4 L (40.1-51.0) % MCV 94.7 (80.0-100.0) fL MCH 32.4 (25.0-34.0) pg MCHC 34.2 (32.0-36.0) g/dL RDW Std Deviation 44.2 (36.4-46.3) fL RDW Coeff of Alesia 12.8 (11.5-14.5) % Plt Count 174 (130-400) K/uL MPV 9.2 L (9.4-12.4) fL Immature Gran % (Auto) 0.6 % Neut % (Auto) 64.1 % Lymph % (Auto) 15.4 % [place] % (Auto) 11.6 % Eos % (Auto) 7.3 % Baso % (Auto) 1.0 % Neut # (Auto) 4.98 (1.4-6.5) K/uL Lymph # (Auto) 1.20 (1.2-3.4) K/uL [place] # (Auto) 0.90 H (0.24-0.82) K/uL Eos # (Auto) 0.57 H (0-0.50) K/uL Baso # (Auto) 0.08 (0-0.2) K/uL Immature Gran # (Auto) 0.05 H (0.00-0.02) K/uL PT 11.2 (9.0-12.0) Seconds INR 1.1 (0.9-1.1) APTT 22.5 (21.0-31.0) Seconds PTT Ratio 0.8 Sodium 136 (136-145) mmol/L Potassium 4.1 (3.5-5.1) mmol/L Chloride 104 (98-107) mmol/L Carbon Dioxide 20 L (21-32) mmol/L Anion Gap 12 H (3-11) BUN 13 (6-23) mg/dl Creatinine 1.02 (0.6-1.4) mg/dl Est Cr Clr Drug Dosing 70.8 ml/min Est GFR ( Amer) 84.1 ml/min Est GFR (Non-Af Amer) 72.6 ml/min BUN/Creatinine Ratio 12.7 (10-20) Glucose 162 H (70-99(Fasting)) mg/dl Calcium 8.6 (8.5-10.1) mg/dl Magnesium (1.7-2.4) mg/dl Total Bilirubin 0.4 (0.2-1.0) mg/dl AST 22 (13-39) U/L ALT 23 (7-52) U/L Alkaline Phosphatase 66 (34-104) U/L Troponin I High Sens 10.2 (0-20) pg/ml Total Protein 6.5 (6.0-8.3) gm/dl Albumin 3.7 (3.4-5.0) gm/dl Globulin 2.8 (2.5-4.0) gm/dl Albumin/Globulin Ratio 1.3 (0.9-2) Lipase 19 (11-82) U/L SARS-CoV-2, RNA, NAAT (NEGATIVE) 08/06/22 08/06/22 08/06/22 Range/Units 12:08 12:10 15:30 WBC (4.8-10.8) K/ul RBC (4.63-6.08) M/uL Hgb (14.0-18.0) g/dl Hct (40.1-51.0) % MCV (80.0-100.0) fL MCH (25.0-34.0) pg MCHC (32.0-36.0) g/dL RDW Std Deviation (36.4-46.3) fL RDW Coeff of Alesia (11.5-14.5) % Plt Count (130-400) K/uL MPV (9.4-12.4) fL Immature Gran % (Auto) % Neut % (Auto) % Lymph % (Auto) % [place] % (Auto) % Eos % (Auto) % Baso % (Auto) % Neut # (Auto) (1.4-6.5) K/uL Lymph # (Auto) (1.2-3.4) K/uL [place] # (Auto) (0.24-0.82) K/uL Eos # (Auto) (0-0.50) K/uL Baso # (Auto) (0-0.2) K/uL Immature Gran # (Auto) (0.00-0.02) K/uL PT (9.0-12.0) Seconds INR (0.9-1.1) APTT (21.0-31.0) Seconds PTT Ratio Sodium (136-145) mmol/L Potassium (3.5-5.1) mmol/L Chloride (98-107) mmol/L Carbon Dioxide (21-32) mmol/L Anion Gap (3-11) BUN (6-23) mg/dl Creatinine (0.6-1.4) mg/dl Est Cr Clr Drug Dosing ml/min Est GFR ( Amer) ml/min Est GFR (Non-Af Amer) ml/min BUN/Creatinine Ratio (10-20) Glucose (70-99(Fasting)) mg/dl Calcium (8.5-10.1) mg/dl Magnesium 1.4 L (1.7-2.4) mg/dl Total Bilirubin (0.2-1.0) mg/dl AST (13-39) U/L ALT (7-52) U/L Alkaline Phosphatase (34-104) U/L Troponin I High Sens (0-20) pg/ml Total Protein (6.0-8.3) gm/dl Albumin (3.4-5.0) gm/dl Globulin (2.5-4.0) gm/dl Albumin/Globulin Ratio (0.9-2) Lipase (11-82) U/L SARS-CoV-2, RNA, NAAT NEGATIVE NEGATIVE (NEGATIVE) Administered Medications Discontinued Medications Sodium Chloride (Nss) 500 mls @ 999 mls/hr IV .Q31M STA Stop: 08/06/22 12:29 Last Infusion: 08/06/22 14:09 Dose: 0 mls/hr Documented By: Admin: 08/06/22 12:21 Dose: 999 mls/hr Documented By: RONNY Magnesium Sulfate/Dextrose (Magnesium Sulfate / D5w) 1 gm in 100 mls @ 200 mls/hr IV Q30M [facility] Stop: 08/06/22 13:58 Last Infusion: 08/06/22 14:08 Dose: 0 mls/hr Documented By: Admin: 08/06/22 13:32 Dose: 200 mls/hr Documented By: Infusion: 08/06/22 13:32 Dose: 200 mls/hr Documented By: Admin: 08/06/22 13:03 Dose: 200 mls/hr Documented By: RONNY Ioversol (Optiray 320 500ml) 120 ml IV ONCE ONE Stop: 08/06/22 13:55 Last Admin: 08/06/22 13:54 Dose: 120 ml Documented By: NOHELIA Imaging Data Radiologist's Impression: Head CT 08/06/22 12:[address] DOSE: HISTORY: Syncope. Fall TECHNIQUE: Multiaxial CT images of the head were performed without the use of intravenous contrast. Automated exposure control was utilized for this study. A dose lowering technique was utilized adhering to the principles of ALARA. Comparison: Head CTA 02/01/2021. Findings: The paranasal sinuses and mastoid air cells are clear. The calvarium and skull base are intact. There is no mass, hematoma, midline shift, acute infarct. White matter hypodensity is nonspecific but suggestive of microvascular ischemic change. The ventricles and sulci demonstrate mild age-related involutional changes. Prior suboccipital craniotomy with encephalomalacia within the left cerebellar hemisphere and vermis. This remains unchanged. Impression: No significant change compared to the prior study. No acute intracranial abnormality. ACT 112: Negative or not required by law. Electronically signed by: Damon Cronin M.D. 08/06/2022 2:11 PM Chest CTA 08/06/22 12:06 CT angio chest PE protocol CT DOSE: 1437.86 mGy.cm HISTORY: 71 years-old Male with PE. Acute shortness of breath TECHNIQUE: Multiple CTA images of the chest were obtained after the intravenous administration of 120 ml Optiray. Coronal and sagittal MIPS were obtained from the axial data set and were submitted for review. All measurements were obtained according to NASCET criteria. A dose lowering technique was utilized adhering to the principles of ALARA. COMPARISON: CTA chest 05/31/2022 FINDINGS: CTA: Moderate cardiomegaly. No pericardial effusion identified. Moderate to extensive coronary artery calcifications. Atherosclerosis of the aorta without aneurysm or dissection. Patency of the imaged great vessels. Suboptimal evaluation of the segmental and subsegmental pulmonary arterial branches secondary to contrast bolus timing and respiratory motion artifact. No pulmonary emboli are identified. CT CHEST: No thyroid nodule. Subcarinal lymph nodes measure up to 1.0 cm. Right hilar lymph nodes measure up to 1.4 cm. Lymph nodes are favored to be reactive. No pneumothorax, pleural effusion or overt pulmonary edema. Bronchial wall thickening redemonstrated. Subpleural predominant groundglass and reticular interstitial densities suggest a combination of atelectasis and mild fibrosis. Mild intralobular septal thickening. No suspicious pulmonary nodules or masses identified. Hepatomegaly with hepatic steatosis. Unremarkable soft tissues. Healing subacute fractures of the anterior right second through sixth ribs and anterior left fifth and sixth ribs. No acute fracture identified. IMPRESSION: 1. No pulmonary emboli identified. 2. Healing subacute nondisplaced bilateral anterior rib fractures. No pneumothorax. 3. Mild intralobular septal thickening may reflect a component of pulmonary edema. No pleural effusion. 4. Hepatic steatosis. ACT 112: Negative or not required by law. The above report was generated using voice recognition software. It may contain grammatical, syntax or spelling errors. Electronically signed by: Jacob Cleveland M.D. 08/06/2022 2:32 PM Discharge Plan Visit Data Chief Complaint: Syncope Stated Complaint: SYNCOPE ED Provider: Kana Mcneal Discharge Problem: Syncope and collapse Patient Disposition: Admitted As Inpatient Forms Stand Alone Forms: [facility] Prescriptions Prescriptions: No Action albuterol sulfate [Ventolin HFA] 90 mcg/actuation HFA aerosol inhaler 2 puff inhalation Q6 PRN (Reason: SOB/Wheezing,cough) Qty: 6.7 3RF Incruse Ellipta 62.5 mcg/actuation blister with device 1 inh inhalation DAILY Qty: 30 7RF mecobalamin (vitamin B12) 1,000 mcg tablet,chewable 1,000 mcg PO DAILY atorvastatin 80 mg tablet 80 mg PO QAM insulin glargine [Lantus U-100 Insulin] 100 unit/mL solution 55 unit subcut HS isosorbide mononitrate 30 mg tablet extended release 24 hr 30 mg PO QAM pantoprazole 40 mg tablet,delayed release (DR/EC) 40 mg PO DAILY metformin 1,000 mg tablet 1,000 mg PO BIDM nitroglycerin 0.4 mg tablet, sublingual 0.4 mg sublingual DIRECTED PRN (Reason: chesst pain) Rx Instructions: place 1 tab under tongue as needed for chest pain, may repeat 3 times if chest pain continues call 911 lorazepam 1 mg tablet 1 mg PO BID PRN (Reason: anxiety/insomnia) Rx Instructions: Take at noon and bedtime hydrocodone-acetaminophen 5-325 mg tablet 1 tab PO Q6 PRN (Reason: Pain, Moderate) aspirin 81 mg Tablet,Delayed Release (Dr/Ec) 81 mg PO QAM sertraline 100 mg tablet 100 mg PO DAILY polyethylene glycol 3350 [Miralax] 17 gram/dose Powder 17 g PO DIRECTED Rx Instructions: use 1 capful up to 3 times a day for constipation triamcinolone acetonide 0.1 % Cream 1 applic TOPICAL BID PRN (Reason: STOMACH RASH) carvedilol 3.125 mg Tablet 3.125 mg PO AMHS Rx Instructions: must administer with a meal/food nicotine 7 mg/24 hr patch 24 hour 7 mg transdermal QAM Mucinex 1,200 mg tablet extended release 12hr 1,200 mg PO QPM ferrous sulfate 325 mg (65 mg iron) Tablet 325 mg PO Q OTHER DAY magnesium oxide 400 mg magnesium Capsule 400 mg PO AMHS diclofenac sodium [Voltaren Arthritis Pain] 1 % Gel 4 g EXT Q6 PRN (Reason: pain) Qty: 100 0RF Referrals Referrals: Eddie Ruffin MD [Primary Care Provider] -
[2022-08-06 12:32] LABS: Basophils # (auto) 0.08 K/uL (0-0.2); Eosinophils # (auto) 0.57 K/uL (0-0.50); Eosinophils % (auto) 7.3 %; Hematocrit (blood only) 35.4 % (40.1-51.0); Hemoglobin 12.1 g/dl (14.0-18.0); Immature Granulocytes # (auto) 0.05 K/uL (0.00-0.02); Immature Granulocytes % (auto) 0.6 %; Lymphocytes % (auto) 15.4 %; Mean Corpuscular Hemoglobin 32.4 pg (25.0-34.0); Mean Corpuscular Hgb Conc 34.2 g/dL (32.0-36.0); Mean Corpuscular Volume 94.7 fL (80.0-100.0); Mean Platelet Volume 9.2 fL (9.4-12.4); Monocytes % (auto) 11.6 %; Neutrophils # (auto) 4.98 K/uL (1.4-6.5); Neutrophils % (auto) 64.1 %; Platelet Count 174 K/uL (130-400); RDW Coefficient of Variation 12.8 % (11.5-14.5); RDW Standard Deviation 44.2 fL (36.4-46.3); Red Blood Count 3.74 M/uL (4.63-6.08); White Blood Count 7.78 K/ul (4.8-10.8)
[2022-08-06 12:51] LABS: INR 1.1 (0.9-1.1); Partial Thromboplastin Ratio 0.8; Partial Thromboplastin Time 22.5 Seconds (21.0-31.0); Prothrombin Time 11.2 Seconds (9.0-12.0)
[2022-08-06] MEDS: MAGNESIUM SULFATE / D5W 1 GM/100 ML BAG IV SCH ×2 (13:03→13:32)
[2022-08-06 13:17] LABS: Troponin I High Sensitivity 10.2 pg/ml (0-20)
[2022-08-06 13:18] LABS: Albumin Globulin Ratio 1.3 (0.9-2); Albumin Level 3.7 gm/dl (3.4-5.0); BUN Creatinine Ratio 12.7 (10-20); Bilirubin,Total 0.4 mg/dl (0.2-1.0); Calcium 8.6 mg/dl (8.5-10.1); Creatinine Clr Calc Pharmacy 70.8 ml/min; Est GFR (African American) 84.1 ml/min; Est GFR (Non-African American) 72.6 ml/min; Globulin 2.8 gm/dl (2.5-4.0); Potassium 4.1 mmol/L (3.5-5.1); Total Protein 6.5 gm/dl (6.0-8.3)
[2022-08-06] MEDS ORDERED: OPTIRAY 320 500ml IV ONE (13:54)
--- NOTE | 2022-08-06 14:13 | CT Scan Report ---
HEAD CT NONCONTRAST CT DOSE: HISTORY: Syncope. Fall TECHNIQUE: Multiaxial CT images of the head were performed without the use of intravenous contrast. A utomated exposure control was utilized for this study. A dose lowering technique was utilized adheri ng to the principles of ALARA. Comparison: Head CTA 02/01/2021. Findings: The paranasal sinuses and mastoid air cells are clear. The calvarium and skull base are int act. There is no mass, hematoma, midline shift, acute infarct. White matter hypodensity is nonspecifi c but suggestive of microvascular ischemic change. The ventricles and sulci demonstrate mild age-rela sara involutional changes. Prior suboccipital craniotomy with encephalomalacia within the left cerebel lar hemisphere and vermis. This remains unchanged. Impression: No significant change compared to the prior study. No acute intracranial abnormality. ACT 112: Negative or not required by law. Electronically signed by: Damon Cronin M.D. 08/06/2022 2:11 PM
--- NOTE | 2022-08-06 14:34 | CT Scan Report ---
CT angio chest PE protocol CT DOSE: 1437.86 mGy.cm HISTORY: 71 years-old Male with PE. Acute shortness of breath TECHNIQUE: Multiple CTA images of the chest were obtained after the intravenous administration of 120 ml Optiray. Coronal and sagittal MIPS were obtained from the axial data set and were submitted for review. All measurements were obtained according to NASCET criteria. A dose lowering technique was u tilized adhering to the principles of ALARA. COMPARISON: CTA chest 05/31/2022 FINDINGS: CTA: Moderate cardiomegaly. No pericardial effusion identified. Moderate to extensive coronary artery calc ifications. Atherosclerosis of the aorta without aneurysm or dissection. Patency of the imaged great vessels. Suboptimal evaluation of the segmental and subsegmental pulmonary arterial branches secondar y to contrast bolus timing and respiratory motion artifact. No pulmonary emboli are identified. CT CHEST: No thyroid nodule. Subcarinal lymph nodes measure up to 1.0 cm. Right hilar lymph nodes measure up to 1.4 cm. Lymph nodes are favored to be reactive. No pneumothorax, pleural effusion or overt pulmonary edema. Bronchial wall thickening redemonstrated. Subpleural predominant groundglass and reticular interstitial densities suggest a combination of ate lectasis and mild fibrosis. Mild intralobular septal thickening. No suspicious pulmonary nodules or m asses identified. Hepatomegaly with hepatic steatosis. Unremarkable soft tissues. Healing subacute fractures of the ant erior right second through sixth ribs and anterior left fifth and sixth ribs. No acute fracture ident ified. IMPRESSION: 1. No pulmonary emboli identified. 2. Healing subacute nondisplaced bilateral anterior rib fractures. No pneumothorax. 3. Mild intralobular septal thickening may reflect a component of pulmonary edema. No pleural effusio n. 4. Hepatic steatosis. ACT 112: Negative or not required by law. The above report was generated using voice recognition software. It may contain grammatical, syntax o r spelling errors. Electronically signed by: Jacob Cleveland M.D. 08/06/2022 2:32 PM
--- NOTE | 2022-08-06 16:10 | Electrocardiogram Report ---
Test Reason : Blood Pressure : / mmHG Vent. Rate : 062 BPM Atrial Rate : 062 BPM P-R Int : 186 ms QRS Dur : 078 ms QT Int : 424 ms P-R-T Axes : -09 -16 169 degrees QTc Int : 430 ms Poor data quality, interpretation may be adversely affected Normal sinus rhythm Inferior infarct , age undetermined T wave abnormality, consider lateral ischemia Abnormal ECG When compared with ECG of 31-MAY-2022 11:05, Inferior infarct is now Present Confirmed by Jesus Matias ([id number]) on 08/06/2022 4:10:09 PM Referred By: Eddie Ruffin Confirmed By:Jesus Matias
--- NOTE | 2022-08-06 16:19 | History & Physical Report ---
Date of Service August 06, 2022 Assessment & Plan (1) Syncope and collapse: Plan: Patient is 71-year-old male with PMH CAD s/p stent, chronic diastolic heart failure, HTN, hyperlipidemia, h/o intracranial hemorrhage s/p craniotomy in 2007, insulin dependent DM II, COPD, pulmonary fibrosis, iron deficiency anemia, BPH presented to ER from PCPs office today for syncopal episode occurred during orthostatic vital signs with subsequent CPR being performed reported less than 30 seconds with patient return of pulse and consciousness. In ER vital stable, Initial high-sensitivity troponin: 10 EKG: Sinus rhythm, rate 62, flattened T waves anterior, lateral leads. No significant change from prior EKG per my review. Patient was given 500 mL NSS in clinic prior to EMS arrival In ER given 500 mL NSS + Orthostatic vital signs reported in outpatient clinic today Trend troponin 05/28/2022 echo: EF: 60-65%, grade 1 diastolic dysfunction, moderate aortic valve sclerosis without significant stenosis We will hold on additional echo pending cardiology recommendations Patient may need additional work-up such as tilt table test Cardiology consult. ER physician spoke to on-call grades 1 through [address] teacher, Dr Jorgensen who had recommended observation Fall precautions CBC, BMP, EKG in a.m. (2) Hypomagnesemia: Plan: Magnesium: 1.4 In ER given 2 g magnesium sulfate IV Repeat magnesium level in a.m. Continue home oral magnesium supplement (3) Coronary artery disease, occlusive: Plan: History NSTEMI s/p bare metal stent OM1 in 2011 at [facility] [place] Cardiac cath 2014 with patent OM1 stent with mild nonobstructive CAD Continue aspirin, carvedilol, isosorbide, atorvastatin (4) HTN (hypertension): Plan: Recent history hypertension Currently on carvedilol, continue (5) DM type 2 (diabetes mellitus, type 2): Plan: Insulin-dependent A1c: 6.7 on 05/28/2022 Continue basal insulin NovoLog sliding scale per protocol (6) Pulmonary fibrosis: (7) COPD with emphysema: Plan: No signs acute exacerbation Continue home inhalers (8) Chronic diastolic heart failure: Plan: Appears euvolemic Monitor I's and O's (9) Anxiety: Plan: Continue sertraline (10) Chronic anemia: Plan: History iron deficiency anemia Hgb: 12. Baseline 12-14 Patient has not been taking iron supplement Resume iron supplement DVT Prophylaxis Lovenox SQ Full Code as per discussion with pt Follows with Dr Ruffin for routine care Pt was seen and care coordinated with Dr Davis. See addendum I spent total of 78 minutes of reviewing notes, outpatient records, labs, medications, coordinating, documenting, and providing care for this patient excluding time spent in the performance of separately billed services. History of Present Illness Chief Complaint: Syncope Primary Care Provider: Eddie Ruffin MD Patient is 71-year-old male with PMH CAD s/p stent, chronic diastolic heart failure, HTN, hyperlipidemia, h/o intracranial hemorrhage s/p craniotomy in 2007, insulin dependent DM II, COPD, pulmonary fibrosis, iron deficiency anemia, BPH presented to ER from PCPs office today for syncopal episode. History obtained from patient and chart review. Per outpatient chart review patient was being seen at PCPs office today. Orthostatic vital signs were being completed with reported supine BP 122/65, sitting BP 107/56, standing BP 90s over 60s in which patient sat down and felt lightheaded. It is reported that patient closed his eyes and then is reported he developed Gilson-Maxwell and rapid response was called. Reportedly no pulse was initially felt and CPR was initiated with patient arousing less than 30 seconds. AED did not recommend shock. Pulses were palpable and EMS was called. Patient was given approximately 500 mL NSS bolus prior to EMS arrival. Patient with history syncopal episode in 05/27/2022 while performing outpatient PFTs. He had sustained multiple rib fractures as result of CPR during suspected vasovagal syncope episode. Patient with recurrent hospitalization on 05/31/2022 for hypotension. He received IVF. During that admission cardiology was consulted with no new changes and PP medication. Patient states over the past couple months has had recurrent lightheadedness occurs with sitting as well as standing. He states he feels generally weak and has had several falls. He states he stopped losartan on his own as he was concerned his blood pressure was going too low. Patient states recently his home BPs have been running high patient states had Zio patch in 06/2022. Unfortunately unable to locate Zio patch results at this time. States chronic urinary frequency. Denies fever/chills, diaphoresis, N/V/D/C, BAUTISTA, vision changes, neck pain, CP, SOB, orthopnea, palpitations, cough, sore throat, choking, otalgia, rhinorrhea, abdominal pain, paresthesias, extremity edema, rashes, dysuria, hematuria. Allergies Allergy/AdvReac Type Severity Reaction Status Date / Time formoterol Allergy Intermediate RASH Verified 08/06/22 16:07 Penicillins Allergy Intermediate Unknown Verified 08/06/22 16:07 simvastatin Allergy Intermediate RASH Verified 08/06/22 16:07 lisinopril Allergy Unknown Unknown Verified 08/06/22 16:07 Home Medications Medication Instructions Recorded Confirmed Type atorvastatin 80 mg tablet 80 mg PO QAM 02/09/19 08/06/22 History insulin glargine 100 unit/mL 50 unit subcut HS 02/09/19 08/06/22 History subcutaneous solution (Lantus U-100 Insulin) isosorbide mononitrate 30 mg 30 mg PO QAM 02/09/19 08/06/22 History tablet,extended release 24 hr lorazepam 1 mg tablet 1 mg PO BID PRN anxiety/insomnia 02/09/19 08/06/22 History metformin 1,000 mg tablet 1,000 mg PO BIDM 02/09/19 08/06/22 History nitroglycerin 0.4 mg sublingual 0.4 mg sublingual DIRECTED PRN 02/09/19 08/06/22 History tablet chesst pain pantoprazole 40 mg tablet,delayed 40 mg PO DAILY 02/09/19 08/06/22 History release aspirin 81 mg tablet,delayed 81 mg PO QAM 03/08/19 08/06/22 History release hydrocodone 5 mg-acetaminophen 325 1 tab PO Q6 PRN Pain, Moderate 03/08/19 08/06/22 History mg tablet mecobalamin (vitamin B12) 1,000 1,000 mcg PO DAILY 09/25/20 08/06/22 History mcg chewable tablet polyethylene glycol 3350 17 17 g PO DIRECTED 02/01/21 08/06/22 History gram/dose oral powder (Miralax) sertraline 100 mg tablet 100 mg PO DAILY 02/01/21 08/06/22 History ferrous sulfate 325 mg (65 mg 325 mg PO Q OTHER DAY 05/27/22 08/06/22 History iron) tablet magnesium oxide 400 mg PO AMHS 05/27/22 08/06/22 History diclofenac sodium 1 % topical gel 4 g EXT Q6 PRN pain #100 grams 05/28/22 08/06/22 Rx (Voltaren Arthritis Pain) albuterol sulfate 90 mcg/actuation 2 puff inhalation Q6 PRN 06/08/22 08/06/22 Rx aerosol inhaler (Ventolin HFA) SOB/Wheezing,cough #6.7 grams umeclidinium 62.5 mcg/actuation 1 inh inhalation DAILY #30 ea 06/08/22 08/06/22 Rx blister powder for inhalation (Incruse Ellipta) carvedilol 12.5 mg tablet 12.5 mg PO BID 08/06/22 08/06/22 History guaifenesin 1,200 mg tablet, 1,200 mg PO QPM 08/06/22 08/06/22 History extended release 12 hr (Mucinex) triamcinolone acetonide 0.1 % 1 applic topical BID PRN STOMACH 08/06/22 08/06/22 History topical cream RASH Past Med/Surg History Medical History (Updated 08/06/22 @ 21:28 by Taylor Stahl PA-C) BPH (benign prostatic hypertrophy) CAD (coronary artery disease) Chronic constipation Chronic diastolic heart failure Chronic 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 Coronary artery disease, occlusive "s/p stent" DM type 2 (diabetes mellitus, type 2) GERD (gastroesophageal reflux disease) 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 Hypotension Lumbago Mood disorder Ribs, multiple fractures Sensorineural hearing loss of both ears Syncope Syncope and collapse Tobacco use disorder Surgical History H/O inguinal hernia repair History of carpal tunnel surgery S/P cardiac cath S/P total knee arthroplasty Stented coronary artery Family History Other COPD (chronic obstructive pulmonary disease) Diabetes Heart disease Rheumatoid arthritis Social History Smoking Status: Former smoker Tobacco Type: Smokeless Tobacco (Dip or Chew) Second Hand Exposure: No; Do You Dip or Chew Tobacco: Yes; Hx Alcohol Use: No Hx Substance Use: No Preferred Language: Faroese Communication Ability: Effective Face Boss Required: No Beliefs That Will Affect Care: None Current Living Situation: Spouse Other Information That Helps Us Care for You: No Feels Safe at Home: Yes Safety Concerns: Feels Safe At This Time Assistive Devices: Cane, Denture - Upper, Denture - Lower, Glasses, Hearing Aid - Bilateral and Walker Review of Systems Review of Systems: All systems reviewed & are unremarkable except as noted in HPI & below Physical Exam Physical Exam: General: no acute distress, WDWN, chronic ill appearing Head: normocephalic, atraumatic Eyes: PERRL, EOM's intact, conjunctiva non-injected, anicteric ENT: normal inspection external ears, nose, mucous membranes moist Neck: supple, trachea midline Lungs: clear, no respiratory distress, no wheezing/rhonchi/rales CV: RRR, no murmur, no pretibial edema Abd: normal BS, soft, non-tender Ext: no cyanosis, no calf tenderness Neuro: A&O x 3, no focal deficits noted, normal affect Skin: warm, dry Results & Data Results & Data ([facility]) Vital Signs (Past 12 Hours) Vital Signs Temp Pulse Resp BP Pulse Ox O2 Del Method 08/06/22 12:14 60 93 Room Air 08/06/22 12:07 36.8 C 60 19 136/81 93 Room Air Laboratory Results Short CBC 08/06/22 Range/Units 12:08 WBC 7.78 (4.8-10.8) K/ul Hgb 12.1 L (14.0-18.0) g/dl Hct 35.4 L (40.1-51.0) % Plt Count 174 (130-400) K/uL BMP 08/06/22 12:08 Sodium 136 Potassium 4.1 Chloride 104 Carbon Dioxide 20 L BUN 13 Creatinine 1.02 Glucose 162 H Calcium 8.6 Liver Function 08/06/22 Range/Units 12:08 Total Bilirubin 0.4 (0.2-1.0) mg/dl AST 22 (13-39) U/L ALT 23 (7-52) U/L Alkaline Phosphatase 66 (34-104) U/L Albumin 3.7 (3.4-5.0) gm/dl Urine 08/06/22 Range/Units 18:45 Urine Color Yellow Urine Appearance Clear (Clear) Urine pH 5.5 (4.5-7.5) Ur Specific [place] 1.035 H (1.000-1.030) Urine Protein Trace H (Negative) Urine Glucose (UA) 2+ H (Negative) Diagnostic Findings Head CT 08/06/22 12:[address] DOSE: HISTORY: Syncope. Fall TECHNIQUE: Multiaxial CT images of the head were performed without the use of intravenous contrast. Automated exposure control was utilized for this study. A dose lowering technique was utilized adhering to the principles of ALARA. Comparison: Head CTA 02/01/2021. Findings: The paranasal sinuses and mastoid air cells are clear. The calvarium and skull base are intact. There is no mass, hematoma, midline shift, acute infarct. White matter hypodensity is nonspecific but suggestive of microvascular ischemic change. The ventricles and sulci demonstrate mild age-related involutional changes. Prior suboccipital craniotomy with encephalomalacia within the left cerebellar hemisphere and vermis. This remains unchanged. Impression: No significant change compared to the prior study. No acute intracranial abnormality. ACT 112: Negative or not required by law. Electronically signed by: Damon Cronin M.D. 08/06/2022 2:11 PM Chest CTA 08/06/22 12:06 CT angio chest PE protocol CT DOSE: 1437.86 mGy.cm HISTORY: 71 years-old Male with PE. Acute shortness of breath TECHNIQUE: Multiple CTA images of the chest were obtained after the intravenous administration of 120 ml Optiray. Coronal and sagittal MIPS were obtained from the axial data set and were submitted for review. All measurements were obtained according to NASCET criteria. A dose lowering technique was utilized adhering to the principles of ALARA. COMPARISON: CTA chest 05/31/2022 FINDINGS: CTA: Moderate cardiomegaly. No pericardial effusion identified. Moderate to extensive coronary artery calcifications. Atherosclerosis of the aorta without aneurysm or dissection. Patency of the imaged great vessels. Suboptimal evaluation of the segmental and subsegmental pulmonary arterial branches secondary to contrast bolus timing and respiratory motion artifact. No pulmonary emboli are identified. CT CHEST: No thyroid nodule. Subcarinal lymph nodes measure up to 1.0 cm. Right hilar lymph nodes measure up to 1.4 cm. Lymph nodes are favored to be reactive. No pneumothorax, pleural effusion or overt pulmonary edema. Bronchial wall thickening redemonstrated. Subpleural predominant groundglass and reticular interstitial densities suggest a combination of atelectasis and mild fibrosis. Mild intralobular septal thickening. No suspicious pulmonary nodules or masses identified. Hepatomegaly with hepatic steatosis. Unremarkable soft tissues. Healing subacute fractures of the anterior right second through sixth ribs and anterior left fifth and sixth ribs. No acute fracture identified. IMPRESSION: 1. No pulmonary emboli identified. 2. Healing subacute nondisplaced bilateral anterior rib fractures. No pneumothorax. 3. Mild intralobular septal thickening may reflect a component of pulmonary edema. No pleural effusion. 4. Hepatic steatosis. ACT 112: Negative or not required by law. The above report was generated using voice recognition software. It may contain grammatical, syntax or spelling errors. Electronically signed by: Jacob Cleveland M.D. 08/06/2022 2:32 PM Supervising Physician Co-Signing Physician Notes Patient was seen and examined in the ER. Chart reviewed. Case discussed with DL. Agree with assessment and plan as above
[2022-08-06 19:06] LABS: Appearance Urine Clear (Clear); Bacteria Urine Automated Negative (Negative); Bilirubin Urine Negative (Negative); Blood Urine Negative (Negative); Color Urine Yellow; Glucose Urine UA 2+ (Negative); Ketones Urine Negative (Negative); Leukocyte Esterase Urine Negative (Negative); Nitrite Urine Negative (Negative); Protein Urine Trace (Negative); RBC Urine Automated 0-4 /hpf (0-4); Specific Gravity Urine 1.035 (1.000-1.030); Urobilinogen Urine Negative (Negative); WBC Urine Automated 0 /hpf (0-5); pH Urine 5.5 (4.5-7.5)
[2022-08-06] MEDS ORDERED: DEXTROSE 50% 50 ML SYRINGE IV PRN (19:17)
[2022-08-06] MEDS ORDERED: GLUCOSE 10 TAB/TUBE PO PRN (19:17)
[2022-08-06] MEDS ORDERED: CARBOHYDRATES FOR HYPOGLYCEMIA PO PRN (19:17)
[2022-08-06] MEDS ORDERED: GLUCAGON FOR INJ 1 MG VIAL SQ PRN (19:17)
[2022-08-06] MEDS ORDERED: ACETAMINOPHEN 325 MG TAB PO PRN (19:17)
[2022-08-06] MEDS ORDERED: GLUCOSE 40% GEL 15 GM TUBE PO PRN (19:17)
[2022-08-06] MEDS ORDERED: ALBUTEROL HFA 8 GM INHALER INH PRN (19:17)
[2022-08-06] MEDS ORDERED: FERROUS SULFATE 325 MG TAB PO SCH (20:00)
[2022-08-06] MEDS: ENOXAPARIN INJ 40 MG/0.4 ML SYR SQ SCH (20:36)
[2022-08-06] MEDS: carvediloL 12.5 MG TAB PO SCH (20:37)
[2022-08-06] MEDS: guaiFENesin 600 MG TABCR PO SCH (20:37)
[2022-08-06] MEDS: INSULIN ASPART PER UNIT SC SCH (20:37)
[2022-08-06] MEDS: MAGNESIUM OXIDE 400 MG TAB PO SCH (20:38)
[2022-08-06] MEDS: LANTUS PER UNIT CHARGE SQ SCH (20:38)
[2022-08-06] MEDS ORDERED: hydrALAZINE HCL 20 MG/ML VIAL IV ONE (23:21)
[2022-08-06] MEDS: LORazepam 1 MG TAB PO PRN (23:21)
[2022-08-07] MEDS ORDERED: hydrALAZINE HCL 20 MG/ML VIAL IV ONE (02:37)
[2022-08-07 08:59] LABS: Hematocrit (blood only) 40.2 % (40.1-51.0); Hemoglobin 13.8 g/dl (14.0-18.0); Mean Corpuscular Hemoglobin 31.9 pg (25.0-34.0); Mean Corpuscular Hgb Conc 34.3 g/dL (32.0-36.0); Mean Corpuscular Volume 92.8 fL (80.0-100.0); Mean Platelet Volume 9.1 fL (9.4-12.4); Platelet Count 224 K/uL (130-400); RDW Coefficient of Variation 12.7 % (11.5-14.5); RDW Standard Deviation 43.6 fL (36.4-46.3); Red Blood Count 4.33 M/uL (4.63-6.08)
[2022-08-07] MEDS: SERTRALINE HCL 100 MG TABLET PO SCH (09:03)
[2022-08-07] MEDS: MAGNESIUM OXIDE 400 MG TAB PO SCH ×2 (09:03→20:42)
[2022-08-07] MEDS: CYANOCOBALAMIN (B-12) 500 MCG TABLET PO SCH (09:03)
[2022-08-07] MEDS: ISOSORBIDE MONO EXTENDED REL 30 MG TABCR PO SCH (09:03)
[2022-08-07] MEDS: ASPIRIN 81 MG ECTAB PO SCH (09:03)
[2022-08-07] MEDS: PANTOprazole 40 MG TAB PO SCH (09:03)
[2022-08-07] MEDS: ATORVASTATIN 40 MG TAB PO SCH (09:04)
[2022-08-07] MEDS: UMECLIDINIUM BROMIDE 62.5MCG/BLISTER 7 PUFFS/INHALER INH SCH (09:04)
[2022-08-07] MEDS: carvediloL 12.5 MG TAB PO SCH ×2 (09:04→20:42)
[2022-08-07] MEDS: POLYETHYLENE (MIRALAX) 17 GM PACK PO SCH (09:05)
[2022-08-07 09:14] LABS: BUN Creatinine Ratio 12.2 (10-20); Calcium 9.6 mg/dl (8.5-10.1); Creatinine Clr Calc Pharmacy 75.5 ml/min; Est GFR (African American) 88.3 ml/min; Est GFR (Non-African American) 76.2 ml/min; Magnesium 1.7 mg/dl (1.7-2.4); Potassium 4.2 mmol/L (3.5-5.1)
[2022-08-07] MEDS: LANTUS PER UNIT CHARGE SQ SCH ×2 (09:20→20:37)
[2022-08-07] MEDS: INSULIN ASPART PER UNIT SC SCH ×4 (10:02→20:38)
--- NOTE | 2022-08-07 10:55 | Cardiology Consultation ---
Date of Consultation August 07, 2022 Assessment & Plan (1) Syncope and collapse: (2) Cardiac arrest with successful resuscitation: (3) Chronic diastolic heart failure: (4) HTN (hypertension): (5) Ex-smoker: (6) Restrictive lung disease: (7) COPD with emphysema: (8) Coronary artery disease, occlusive: (9) DM type 2 (diabetes mellitus, type 2): (10) H/O subarachnoid hemorrhage: Plan So far, no arrhythmias have been found on telemetry monitoring. The patient's symptoms are improving with IV fluids and I will order another 2 bags of normal saline to be delivered at this time. Will also take this opportunity to maximize medical therapy and he will be started on Entresto today Continue aspirin, atorvastatin, carvedilol and isosorbide Follow and replete electrolytes as necessary Continue to monitor on telemetry overnight History of Present Illness Reason for Consultation: Syncope Requesting Physician: [facility] Attending Physician: Khanh Davis MD History of Present Illness It was my pleasure to see Kaden in cardiac consultation today August 07, 2022. He is a very pleasant 71-year-old gentleman who is well-known to our cardiology practice. He was sent to the emergency room on 08/06/2022 via EMS from his PCPs office after suffering a syncopal event and loss of pulse requiring brief CPR in the office. A rapid response was called and I was the heater operator helper that arrived in the [facility] office. At that time, an AED was already placed but no shocks have been delivered. He had regained spontaneous circulation. He was awake and lying on the floor when I arrived but very confused and ashen in appearance. The patient presented to his PCPs office originally with complaints of recurrent syncope. He states that for the last several days prior to presentation when he would stand up he gets severely lightheaded and syncopized. While orthostatic vital signs were being obtained in the office he once again syncopized. Since admission, no significant arrhythmias been found on the monitor. Of note, the patient has had multiple recent admissions for similar syncopal events. Problem List: 1. ASCVD. 1. History of NSTEMI , PCI with a bare metal stent to the OM1 on 02/03/12 at [facility]. 2. Patent OM1 stent with mild nonobstructive CAD noted elsewhere via the [place]24[place] [facility] abnormal nuclear stress testing 2. History of diastolic congestive heart failure. 3. Asymptomatic ventricular ectopy, with preserved LV systolic function 4. Hypertension. 5. Dyslipidemia. 6. Mild bilateral internal carotid artery disease. 7. Past intracranial hemorrhage, requiring craniotomy, 2007 8. Type 2 diabetes mellitus, followed by PCP 9. Prior rash, possible drug reaction to metoprolol - tolerating carvedilol 10. History of tobacco abuse, COPD, recurrent bronchitis 11. Hypomagnesemia 12. Status post elective right total knee [place] [facility] [place]. 13. Erectile dysfunction 14. BPH with LUTS 15. Status post 11/07/2021 right knee PRP injection by Dr. Munoz 16. Chronic low back pain. Allergies Allergy/AdvReac Type Severity Reaction Status Date / Time formoterol Allergy Intermediate RASH Verified 08/06/22 16:07 Penicillins Allergy Intermediate Unknown Verified 08/06/22 16:07 simvastatin Allergy Intermediate RASH Verified 08/06/22 16:07 lisinopril Allergy Unknown Unknown Verified 08/06/22 16:07 Home Medications Medication Instructions Recorded Confirmed Type atorvastatin 80 mg tablet 80 mg PO QAM 02/09/19 08/06/22 History insulin glargine 100 unit/mL 50 unit subcut HS 02/09/19 08/06/22 History subcutaneous solution (Lantus U-100 Insulin) isosorbide mononitrate 30 mg 30 mg PO QAM 02/09/19 08/06/22 History tablet,extended release 24 hr lorazepam 1 mg tablet 1 mg PO BID PRN anxiety/insomnia 02/09/19 08/06/22 History metformin 1,000 mg tablet 1,000 mg PO BIDM 02/09/19 08/06/22 History nitroglycerin 0.4 mg sublingual 0.4 mg sublingual DIRECTED PRN 02/09/19 08/06/22 History tablet chesst pain pantoprazole 40 mg tablet,delayed 40 mg PO DAILY 02/09/19 08/06/22 History release aspirin 81 mg tablet,delayed 81 mg PO QAM 03/08/19 08/06/22 History release hydrocodone 5 mg-acetaminophen 325 1 tab PO Q6 PRN Pain, Moderate 03/08/19 08/06/22 History mg tablet mecobalamin (vitamin B12) 1,000 1,000 mcg PO DAILY 09/25/20 08/06/22 History mcg chewable tablet polyethylene glycol 3350 17 17 g PO DIRECTED 02/01/21 08/06/22 History gram/dose oral powder (Miralax) sertraline 100 mg tablet 100 mg PO DAILY 02/01/21 08/06/22 History ferrous sulfate 325 mg (65 mg 325 mg PO Q OTHER DAY 05/27/22 08/06/22 History iron) tablet magnesium oxide 400 mg PO AMHS 05/27/22 08/06/22 History diclofenac sodium 1 % topical gel 4 g EXT Q6 PRN pain #100 grams 05/28/22 08/06/22 Rx (Voltaren Arthritis Pain) albuterol sulfate 90 mcg/actuation 2 puff inhalation Q6 PRN 06/08/22 08/06/22 Rx aerosol inhaler (Ventolin HFA) SOB/Wheezing,cough #6.7 grams umeclidinium 62.5 mcg/actuation 1 inh inhalation DAILY #30 ea 06/08/22 08/06/22 Rx blister powder for inhalation (Incruse Ellipta) carvedilol 12.5 mg tablet 12.5 mg PO BID 08/06/22 08/06/22 History guaifenesin 1,200 mg tablet, 1,200 mg PO QPM 08/06/22 08/06/22 History extended release 12 hr (Mucinex) triamcinolone acetonide 0.1 % 1 applic topical BID PRN STOMACH 08/06/22 08/06/22 History topical cream RASH Patient History Medical History BPH (benign prostatic hypertrophy) CAD (coronary artery disease) Chronic constipation Chronic diastolic heart failure Chronic 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 Coronary artery disease, occlusive "s/p stent" DM type 2 (diabetes mellitus, type 2) GERD (gastroesophageal reflux disease) 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 Hypotension Lumbago Mood disorder Ribs, multiple fractures Sensorineural hearing loss of both ears Syncope Syncope and collapse Tobacco use disorder Surgical History H/O inguinal hernia repair History of carpal tunnel surgery S/P cardiac cath S/P total knee arthroplasty Stented coronary artery Family History Other COPD (chronic obstructive pulmonary disease) Diabetes Heart disease Rheumatoid arthritis Social History Smoking Status: Former smoker Tobacco Type: Smokeless Tobacco (Dip or Chew) Second Hand Exposure: No; Do You Dip or Chew Tobacco: Yes; Hx Alcohol Use: No Hx Substance Use: No Preferred Language: Tristanian Communication Ability: Effective Rig Operator Required: No Beliefs That Will Affect Care: None Current Living Situation: Spouse Other Information That Helps Us Care for You: No Feels Safe at Home: Yes Safety Concerns: Feels Safe At This Time Assistive Devices: Cane, Denture - Upper, Denture - Lower, Glasses, Hearing Aid - Bilateral and Walker Review of Systems Review of Systems: All systems reviewed & are unremarkable except as noted in HPI & below Physical Exam Physical Exam: General: Awake, alert and oriented x 3. No acute distress. HEENT: Normocephalic, atraumatic. Pupils equal, round and reactive to light and accommodation. Extraocular muscles are intact. Anicteric sclera. Moist mucous membranes. Neck: No JVD. No bruit. Cardiovascular: Regular. Positive S-4. Normal S-1 and S-2. No S-3. 3/6 holosystolic ejection murmur, left sternal border, mid-clavicular line with radiation to the axilla. No rubs. Pulmonary: Clear to auscultation bilaterally. No rales, rhonchi, or wheezing. Abdomen: Bowel sounds x 4, soft. No rebound, guarding or tenderness. No organomegaly. Extremities: No clubbing, cyanosis or edema. +2 pedal pulses bilaterally. Skin: Warm and dry. Results & Data ([facility]) Vital Signs (Past 12 Hours) Vital Signs Temp Pulse Pulse Pulse Resp BP Pulse Ox 08/07/22 07:54 36.7 C 113 H 18 174/82 H 94 08/07/22 07:14 65 08/07/22 02:25 36.6 C 65 20 179/96 H 95 08/06/22 23:35 68 08/06/22 23:12 36.9 C 65 18 181/87 H 96 O2 Del Method 08/07/22 07:54 Room Air 08/07/22 07:14 08/07/22 02:25 Room Air 08/06/22 23:35 08/06/22 23:12 Room Air
[2022-08-07] MEDS: SODIUM CHLORIDE 0.9% 1000ML 1,000 ML IV SCH ×2 (12:08→19:58)
[2022-08-07] MEDS: VALSARTAN/SACUBITRIL 51/49 MG TAB PO SCH ×2 (12:13→20:42)
--- NOTE | 2022-08-07 19:18 | Hospitalist Progress Note ---
Date of Service August 07, 2022 Assessment & Plan (1) Syncope and collapse: Plan: Patient is 71-year-old male with PMH CAD s/p stent, chronic diastolic heart failure, HTN, hyperlipidemia, h/o intracranial hemorrhage s/p craniotomy in 2007, insulin dependent DM II, COPD, pulmonary fibrosis, iron deficiency anemia, BPH presented to ER from PCPs office today for syncopal episode occurred during orthostatic vital signs with subsequent CPR being performed reported less than 30 seconds with patient return of pulse and consciousness. In ER vital stable, Initial high-sensitivity troponin: 10 EKG: Sinus rhythm, rate 62, flattened T waves anterior, lateral leads. No significant change from prior EKG per my review. no further episodes while here. No events noted on telemetry Appreciate cardiology input. He may benefit from event monitor if this hasn't already been done (2) Hypomagnesemia: Plan: continue oral magnesium (3) Coronary artery disease, occlusive: Plan: History NSTEMI s/p bare metal stent OM1 in 2011 at [facility] [place] Cardiac [place] 2013 with patent OM1 stent with mild nonobstructive CAD Continue aspirin, carvedilol, isosorbide, atorvastatin (4) HTN (hypertension): Plan: Patient self discontinued losartan due to episodes of light headedness (5) DM type 2 (diabetes mellitus, type 2): Plan: Insulin-dependent A1c: 6.7 on 05/28/2022 Continue basal insulin NovoLog sliding scale per protocol (6) Pulmonary fibrosis: (7) COPD with emphysema: Plan: No signs acute exacerbation Continue home inhalers (8) Chronic diastolic heart failure: Plan: Appears euvolemic Monitor I's and O's (9) Anxiety: Plan: Continue sertraline (10) Chronic anemia: Plan: History iron deficiency anemia Hgb: 12. Baseline 12-14 Patient has not been taking iron supplement Resume iron supplement DVT Prophylaxis Lovenox SQ Admission and Anticipated Discharge Date Admission Date: August 06, 2022 Subjective No further episodes. No events on telemetry Physical Exam Physical Exam: No acute distress, pleasant and comfortable Respiratory: Breathing comfortably on room air, no wheezing/rhonchi/rals Cardiovascular: regular rate and rhythm, no murmurs/rubs/gallops Gastrointestinal (Abdomen): soft, non tender Musculoskeletal: No edema, no cyanosis, no clubbing Neurologic: Awake, alert, spontaneously moving extremities Results & Data Results & Data ([facility]) Vital Signs (Past 12 Hours) Vital Signs Temp Pulse Pulse Resp BP Pulse Ox O2 Del Method 08/07/22 18:17 36.5 C 70 18 170/99 H 93 Room Air 08/07/22 15:33 36.5 C 68 18 168/83 H 92 Room Air 08/07/22 15:15 86 08/07/22 11:31 36.7 C 65 18 137/73 94 Room Air 08/07/22 07:54 36.7 C 113 H 18 174/82 H 94 Room Air 08/07/22 07:14 65
[2022-08-07] MEDS: ENOXAPARIN INJ 40 MG/0.4 ML SYR SQ SCH (20:41)
[2022-08-07] MEDS: guaiFENesin 600 MG TABCR PO SCH (20:42)
[2022-08-07] MEDS: LORazepam 1 MG TAB PO PRN (20:48)
[2022-08-08] MEDS: SODIUM CHLORIDE 0.9% 1000ML 1,000 ML IV SCH ×2 (02:57→10:59)
[2022-08-08 07:06] LABS: BUN Creatinine Ratio 14.1 (10-20); Calcium 8.6 mg/dl (8.5-10.1); Creatinine Clr Calc Pharmacy 74.7 ml/min; Est GFR (African American) 87.2 ml/min; Est GFR (Non-African American) 75.2 ml/min; Magnesium 1.7 mg/dl (1.7-2.4); Potassium 4.1 mmol/L (3.5-5.1)
[2022-08-08] MEDS: PANTOprazole 40 MG TAB PO SCH (07:29)
[2022-08-08] MEDS: ATORVASTATIN 40 MG TAB PO SCH (07:29)
[2022-08-08] MEDS: CYANOCOBALAMIN (B-12) 500 MCG TABLET PO SCH (07:29)
[2022-08-08] MEDS: SERTRALINE HCL 100 MG TABLET PO SCH (07:29)
[2022-08-08] MEDS: carvediloL 12.5 MG TAB PO SCH (07:29)
[2022-08-08] MEDS: ISOSORBIDE MONO EXTENDED REL 30 MG TABCR PO SCH (07:29)
[2022-08-08] MEDS: POLYETHYLENE (MIRALAX) 17 GM PACK PO SCH (07:30)
[2022-08-08] MEDS: VALSARTAN/SACUBITRIL 51/49 MG TAB PO SCH (07:30)
[2022-08-08] MEDS: ASPIRIN 81 MG ECTAB PO SCH (07:30)
[2022-08-08] MEDS: MAGNESIUM OXIDE 400 MG TAB PO SCH (07:30)
[2022-08-08] MEDS: UMECLIDINIUM BROMIDE 62.5MCG/BLISTER 7 PUFFS/INHALER INH SCH (07:31)
[2022-08-08] MEDS ORDERED: MAGNESIUM SULFATE / D5W 1 GM/100 ML BAG IV ONE (08:08)
[2022-08-08] MEDS: INSULIN ASPART PER UNIT SC SCH ×2 (08:22→12:14)
[2022-08-08] MEDS: LANTUS PER UNIT CHARGE SQ SCH (09:10)
--- NOTE | 2022-08-08 10:43 | Cardiology Progress Note ---
Date of Service August 08, 2022 Assessment & Plan (1) Syncope and collapse: (2) Cardiac arrest with successful resuscitation: (3) Chronic diastolic heart failure: (4) HTN (hypertension): (5) Ex-smoker: (6) Restrictive lung disease: (7) COPD with emphysema: (8) Coronary artery disease, occlusive: (9) DM type 2 (diabetes mellitus, type 2): (10) H/O subarachnoid hemorrhage: Plan no arrhythmias have been found on telemetry monitoring. Now back to baseline clinically Continue aspirin, atorvastatin, carvedilol, Entresto and isosorbide Patient will require live outpatient telemetry monitoring upon discharge which my office will arrange Okay to DC to home from a cardiac standpoint Should follow-up with PCP this week Admission and Anticipated Discharge Date Admission Date: August 06, 2022 Subjective Patient seen and examined. Chart reviewed. Telemetry reviewed. States he feels well and now back to baseline. Review of Systems Review of Systems: All systems reviewed & are unremarkable except as noted in HPI & below Physical Exam Physical Exam: General: Awake, alert and oriented x 3. No acute distress. HEENT: Normocephalic, atraumatic. Pupils equal, round and reactive to light and accommodation. Extraocular muscles are intact. Anicteric sclera. Moist mucous membranes. Neck: No JVD. No bruit. Cardiovascular: Regular. Positive S-4. Normal S-1 and S-2. No S-3. 3/6 holosystolic ejection murmur, left sternal border, mid-clavicular line with radiation to the axilla. No rubs. Pulmonary: Clear to auscultation bilaterally. No rales, rhonchi, or wheezing. Abdomen: Bowel sounds x 4, soft. No rebound, guarding or tenderness. No organomegaly. Extremities: No clubbing, cyanosis or edema. +2 pedal pulses bilaterally. Skin: Warm and dry. Results & Data ([facility]) Vital Signs (Past 12 Hours) Vital Signs Temp Pulse Pulse Resp BP Pulse Ox O2 Del Method 08/08/22 06:57 58 L 08/08/22 06:31 36.8 C 59 L 18 149/76 H 93 Room Air 08/08/22 03:46 36.5 C 69 18 152/77 H 96 Room Air 08/08/22 00:41 63 08/07/22 23:14 36.6 C 67 18 156/79 H 95 Room Air
--- NOTE | 2022-08-08 15:06 | Discharge Summary ---
Date of Service August 08, 2022 Admission HPI Per Admitting Provider Patient is 71-year-old male with PMH CAD s/p stent, chronic diastolic heart failure, HTN, hyperlipidemia, h/o intracranial hemorrhage s/p craniotomy in 2007, insulin dependent DM II, COPD, pulmonary fibrosis, iron deficiency anemia, BPH presented to ER from PCPs office today for syncopal episode. History obtained from patient and chart review. Per outpatient chart review patient was being seen at PCPs office today. Orthostatic vital signs were being completed with reported supine BP 122/65, sitting BP 107/56, standing BP 90s over 60s in which patient sat down and felt lightheaded. It is reported that patient closed his eyes and then is reported he developed Gilson-Maxwell and rapid response was called. Reportedly no pulse was initially felt and CPR was initiated with patient arousing less than 30 seconds. AED did not recommend shock. Pulses were palpable and EMS was called. Patient was given approximately 500 mL NSS bolus prior to EMS arrival. Patient with history syncopal episode in 05/27/2022 while performing outpatient PFTs. He had sustained multiple rib fractures as result of CPR during suspected vasovagal syncope episode. Patient with recurrent hospitalization on 05/31/2022 for hypotension. He received IVF. During that admission cardiology was consulted with no new changes and PP medication. Patient states over the past couple months has had recurrent lightheadedness occurs with sitting as well as standing. He states he feels generally weak and has had several falls. He states he stopped losartan on his own as he was concerned his blood pressure was going too low. Patient states recently his home BPs have been running high patient states had Zio patch in 06/2022. Unfortunately unable to locate Zio patch results at this time. States chronic urinary frequency. Denies fever/chills, diaphoresis, N/V/D/C, BAUTISTA, vision changes, neck pain, CP, SOB, orthopnea, palpitations, cough, sore throat, choking, otalgia, rhinorrhea, abdominal pain, paresthesias, extremity edema, rashes, dysuria, hematuria. Principal Diagnosis Orthostatic hypotension Dehydration Syncope Discharge Exam Appears well. Ambulating in room using his walker without difficulties. No events noted on telemetry while here Discharge Data Allergies Allergy/AdvReac Type Severity Reaction Status Date / Time formoterol Allergy Intermediate RASH Verified 08/06/22 16:07 Penicillins Allergy Intermediate Unknown Verified 08/06/22 16:07 simvastatin Allergy Intermediate RASH Verified 08/06/22 16:07 lisinopril Allergy Unknown Unknown Verified 08/06/22 16:07 Consultations 08/06/22 16:15 ED Decision to Admit Stat 08/07/22 07:00 Consult Cardiology Routine Ordered Studies 08/06/22 12:05 CT head/brain wo con Stat 08/06/22 12:06 CT angio chest PE protocol Stat Hospital Course (1) Syncope and collapse: (2) Hypomagnesemia: (3) Coronary artery disease, occlusive: (4) HTN (hypertension): (5) DM type 2 (diabetes mellitus, type 2): (6) Pulmonary fibrosis: (7) COPD with emphysema: (8) Chronic diastolic heart failure: (9) Anxiety: (10) Chronic anemia: Plan Mr Kaden Pal is a 71-year-old male with PMH CAD s/p stent, chronic diastolic heart failure, HTN, hyperlipidemia, h/o intracranial hemorrhage s/p craniotomy in 2007, insulin dependent DM II, COPD, pulmonary fibrosis, iron deficiency anemia, BPH presented to ER from PCPs office 08/06/2022 for syncopal episode which occurred during office orthostatic BP check (orthostatic was reportedly positive). In the office, he received CPR for 30 seconds. He was monitored on telemetry for 48 hours in the hospital with no events noted. He received IV fluids here and BP remained stable if not elevated. He was seen by Cardiology and started on Entresto (he had self discontinued losartan previously). His BP remains stable with the addition of IV fluids and Entresto. At the time of discharge, he was ambulating with a walker with no difficulty, no light headedness. His BP at time of discharge was 155/79 He should follow up with his PCP and Extra Gang Supervisor for further workup of his syncopal episodes. Total Time Total Time Spent Total Time Spent (In Minutes): 35 Discharge Plan Discharge Items Patient Disposition: Home - Self-Care Reason For Visit: SYNCOPE Discharge Diagnosis: Syncope Orthostatic hypotension Condition on Discharge: Good Activity: Resume your previous activity Non-emergency contact: Primary Care Provider and Extra Gang Supervisor Call non-emergency contact if: you have any medication questions and your symptoms worsen Follow-up/Referrals: Eddie Ruffin MD [Primary Care Provider] - Kana Somers [Physician Hvac Project Engineer] - Diet: Heart Healthy Addtl Attending Provider Instructions: You were admitted because you fainted at your doctor's office while having your blood pressure taken You were monitored in the hospital for 48 hours on telemetry and did not have any arrhythmias noted Your blood pressure medications were adjusted here. You were started on Entresto. You also received IV fluids for dehydration. Your blood pressure has been stable. Please follow up with your Extra Gang Supervisor and PCP Pending Studies at Discharge: No Stand-Alone Forms: My [facility] [address], Smoking Cessation Medications and DC Order Prescriptions: New Entresto 49-51 mg Tablet 1 tab PO BID 30 Days Qty: 60 0RF Continued albuterol sulfate [Ventolin HFA] 90 mcg/actuation HFA aerosol inhaler 2 puff inhalation Q6 PRN (Reason: SOB/Wheezing,cough) Qty: 6.7 3RF Incruse Ellipta 62.5 mcg/actuation blister with device 1 inh inhalation DAILY Qty: 30 7RF mecobalamin (vitamin B12) 1,000 mcg tablet,chewable 1,000 mcg PO DAILY atorvastatin 80 mg tablet 80 mg PO QAM insulin glargine [Lantus U-100 Insulin] 100 unit/mL solution 50 unit subcut HS Rx Instructions: 50-55 isosorbide mononitrate 30 mg tablet extended release 24 hr 30 mg PO QAM pantoprazole 40 mg tablet,delayed release (DR/EC) 40 mg PO DAILY metformin 1,000 mg tablet 1,000 mg PO BIDM nitroglycerin 0.4 mg tablet, sublingual 0.4 mg sublingual DIRECTED PRN (Reason: chesst pain) Rx Instructions: place 1 tab under tongue as needed for chest pain, may repeat 3 times if chest pain continues call 911 lorazepam 1 mg tablet 1 mg PO BID PRN (Reason: anxiety/insomnia) Rx Instructions: Take at noon and bedtime hydrocodone-acetaminophen 5-325 mg tablet 1 tab PO Q6 PRN (Reason: Pain, Moderate) aspirin 81 mg Tablet,Delayed Release (Dr/Ec) 81 mg PO QAM sertraline 100 mg tablet 100 mg PO DAILY polyethylene glycol 3350 [Miralax] 17 gram/dose Powder 17 g PO DIRECTED Rx Instructions: use 1 capful up to 3 times a day for constipation triamcinolone acetonide 0.1 % Cream 1 applic TOPICAL BID PRN (Reason: STOMACH RASH) Mucinex 1,200 mg tablet extended release 12hr 1,200 mg PO QPM carvedilol 12.5 mg tablet 12.5 mg PO BID ferrous sulfate 325 mg (65 mg iron) Tablet 325 mg PO Q OTHER DAY magnesium oxide 400 mg magnesium Capsule 400 mg PO AMHS diclofenac sodium [Voltaren Arthritis Pain] 1 % Gel 4 g EXT Q6 PRN (Reason: pain) Qty: 100 0RF Discharge Orders: Discharge Order (Routine); Ordered 08/08/22 Ordered By: Khahn Davis Admission Data Admit Date/Time: 08/06/22 16:49 Attending Provider: Khanh Davis Admit Provider: Khanh Davis Primary Care Provider: Eddie Ruffin Other Providers: Khanh Davis ; Yovanny Maki
--- NOTE | 2022-08-08 22:01 | Electrocardiogram Report ---
Test Reason : Blood Pressure : / mmHG Vent. Rate : 066 BPM Atrial Rate : 066 BPM P-R Int : 196 ms QRS Dur : 084 ms QT Int : 432 ms P-R-T Axes : 019 -18 091 degrees QTc Int : 452 ms Normal sinus rhythm Septal infarct , age undetermined T wave abnormality, consider anterolateral ischemia Abnormal ECG When compared with ECG of 06-AUG-2022 12:03, Septal infarct is now Present Confirmed by Kevin Larson ([id number]) on 08/08/2022 10:01:18 PM Referred By: Eddie Ruffin Confirmed By:Kevin Larson
== END 2022-08-08 15:43 | disposition home or self-care (01) | DRG 312 ==
LOC: ED 11:56 → EDINP 16:49 → 2N 19:16
DX: Z79.84 Long term (current) use of oral hypoglycemic drugs; E83.42 Hypomagnesemia; Z87.891 Personal history of nicotine dependence; Z88.1 Allergy status to other antibiotic agents; Z79.899 Other long term (current) drug therapy; E11.9 Type 2 diabetes mellitus without complications; F17.220 Nicotine dependence, chewing tobacco, uncomplicated; E78.5 Hyperlipidemia, unspecified; Z79.82 Long term (current) use of aspirin; J43.9 Emphysema, unspecified; I46.9 Cardiac arrest, cause unspecified; I50.32 Chronic diastolic (congestive) heart failure; E86.0 Dehydration; N40.0 Benign prostatic hyperplasia without lower urinary tract symptoms; Z88.8 Allergy status to other drugs, medicaments and biological substances; I11.0 Hypertensive heart disease with heart failure; F41.9 Anxiety disorder, unspecified; D50.9 Iron deficiency anemia, unspecified; J84.10 Pulmonary fibrosis, unspecified; Z79.4 Long term (current) use of insulin; R55 Syncope and collapse; I25.10 Atherosclerotic heart disease of native coronary artery without angina pectoris; H90.3 Sensorineural hearing loss, bilateral; Z88.0 Allergy status to penicillin

== ENCOUNTER 2022-08-20 14:02 | Inpatient (IN) ==
[2022-08-20] MEDS ORDERED: SODIUM CHLORIDE 0.9% 1000ML 1,000 ML IV SCH (14:15)
[2022-08-20 14:21] LABS: Basophils # (auto) 0.09 K/uL (0-0.2); Basophils % (auto) 1.2 %; Eosinophils # (auto) 0.58 K/uL (0-0.50); Eosinophils % (auto) 7.4 %; Hematocrit (blood only) 37.1 % (40.1-51.0); Hemoglobin 12.6 g/dl (14.0-18.0); Immature Granulocytes # (auto) 0.04 K/uL (0.00-0.02); Immature Granulocytes % (auto) 0.5 %; Lymphocytes # (auto) 1.27 K/uL (1.2-3.4); Lymphocytes % (auto) 16.3 %; Mean Corpuscular Hemoglobin 32.3 pg (25.0-34.0); Mean Corpuscular Volume 95.1 fL (80.0-100.0); Mean Platelet Volume 9.1 fL (9.4-12.4); Monocytes # (auto) 0.84 K/uL (0.24-0.82); Monocytes % (auto) 10.8 %; Neutrophils # (auto) 4.97 K/uL (1.4-6.5); Neutrophils % (auto) 63.8 %; Platelet Count 188 K/uL (130-400); RDW Standard Deviation 45.6 fL (36.4-46.3); White Blood Count 7.79 K/ul (4.8-10.8)
[2022-08-20 14:44] LABS: Alanine Aminotransferase 21 U/L (7-52); Albumin Globulin Ratio 1.4 (0.9-2); Albumin Level 3.7 gm/dl (3.4-5.0); Alkaline Phosphatase 70 U/L (34-104); Anion Gap 9 (3-11); Aspartate Aminotransferase 22 U/L (13-39); BUN Creatinine Ratio 12.7 (10-20); Bilirubin,Total 0.5 mg/dl (0.2-1.0); Blood Urea Nitrogen 14 mg/dl (6-23); Calcium 8.7 mg/dl (8.5-10.1); Carbon Dioxide 21 mmol/L (21-32); Chloride 105 mmol/L (98-107); Est GFR (African American) 76.2 ml/min; Est GFR (Non-African American) 65.8 ml/min; Globulin 2.7 gm/dl (2.5-4.0); Glucose 160 mg/dl (70-99(Fasting)); Magnesium 1.4 mg/dl (1.7-2.4); Potassium 4.5 mmol/L (3.5-5.1); Sodium 135 mmol/L (136-145); Total Protein 6.4 gm/dl (6.0-8.3)
--- NOTE | 2022-08-20 14:45 | History & Physical Report ---
Date of Service August 20, 2022 Assessment & Plan (1) Hypotension: (2) Syncope and collapse: (3) CAD (coronary artery disease): (4) DM type 2 (diabetes mellitus, type 2): (5) COPD (chronic obstructive pulmonary disease): (6) HLD (hyperlipidemia): Plan 72-year-old presents with recurrent syncope and collapse of with unknown origin. In ED hemodynamically stable hypomagnesemia replaced in ED, cardiology consult pending. Insulin-dependent diabetic Hypotension: Syncope: Pt was hypotensive in outpatient office; ventura, dusky, pale, cool and clammy. Received 700mL IV fluids; now receiving maintenance fluids @ 125mL/hour. Goal to receive of 2 L to be administered; re-evaluate for continuation. Grade I diastolic dysfunction Lactic Acid pending; will trend. Do not suspect infectious in nature Pt is euvolemic on exam Urine and blood cultures pending PT/OT Orthostatic BP's Euvolemic on exam; I/O ordered EKG in AM BMP in AM Mg+ 1.4; replaced with 1 g; recheck in a.m. TSH 7.334; Free T4 normal. CAD: HTN: Cards Consult placed to Dr. Maki Continue baby aspirin Hold carvedilol, Imdur, Entresto; await further direction from cardiology ECHO 05/28: EF 60-65%; improved from 2020 where EF was 55-60%: Grade 1 diastolic failure DM2: Holding metformin while inpatient Patient takes Lantus SQ at home; continue as ordered SSI with ACHS checks A1C on 05/28 was 6.7 Glycemic Pharmacy consult to assist with Lantus management H/O COPD: continue on home inhalers CXR in AM. Does not require supplemental O2 at baseline Smoking cessation encouraged, Pt uses chewing tobacco. Declines Nicotine patch offering. HLD: Continue atorvastatin Disposition: PCP: Dr. Ruffin Code Status: Full Code VTE Prophylaxis: Lovenox SQ A total of 85 minutes was spent with greater than 50% of that time personally reviewing all current laboratory work and diagnostic imaging studies obtained in the ED. Additionally, I was able to review the patients past medication reconciliation and history with direct visualization in the patients chart. Included in the time above, a portion of that time was spent assessing the patient while discussing and collaborating with specialists, if necessary, and making medical decisions regarding orders to be placed. All of the aforementioned completed while collaborating with Dr. Guerra for a full treatment plan. Please see her addendum for further details. History of Present Illness Chief Complaint: syncope Primary Care Provider: Eddie Ruffin MD Mr. Pal is a 72-year-old male that presented to the [facility] ED as per recommendation by his outpatient sports equipment racker, Dr. Banks. He was at the [facility] cardiology office this morning for follow up and MCOT placement and was noted to be hypotensive with systolic blood pressure in the 60s and was dusky ventura in appearance.Reportedly, when he arrived to the office, he had normal vital signs and appeared well. The patient has had a few admissions recently with similar presentation 05/27-05/28 (syncopal episode), 05/31-06/02 (syncopal episode) and 08/06-08/08 again. Today as an outpatient he did receive a few chest compressions and then woke without recollection of the event. EKG in the ED today; First-degree block and nonspecific ST abnormality. No ST elevation. Patient denies anxiety or whitecoat syndrome with going to doctor offices. I asked the patient if he does experience the symptoms with having bowel movements but he denies that. He states that at times there are black dots that show up in his visual aguilar but do not appear to correlate with syncopal events. I suspect the patient becomes tense subconsciously in the clinic which may be leading to a significant vasovagal event. During my interview, he said that he became cool and clammy and felt disoriented since he was discharged from the hospital a few days ago. His states that he is often checking his for her to see if he is diaphoretic anticipating another event. He also reports a decreased appetite, but that has been occurring for a few months and has been eating. Previous EKG's have been was normal sinus rhythm with some lateral T wave flattening, a few noted have had lateral ischemic changes however does not appear that there is any ST elevation or depression. 05/28 echocardiogram performed which showed an EF of 60 to 65% with grade 1 diastolic dysfunction; this improved from 2020. Additional PMH includes diabetes type 2 insulin-dependent, COPD, CHF (EF of 60-65%), CAD s/p stent, HTN,HLD, PVD, BPH, and anxiety. The patient has his license but is no longer driving. Lactic acid is pending, blood cultures and urine culture pending however do not suspect this to be bacterial or infectious in nature. We will trend troponin levels; however first set was negative 6.2. Patient denies headache, dizziness, shortness of breath, palpitations, chest pain, nausea, vomiting, diarrhea, recent falls or trauma, or seizures. The patient will be admitted for further evaluation and specialist consultation, including Cardiology. Please see A/P for further details and information. Allergies Allergy/AdvReac Type Severity Reaction Status Date / Time formoterol Allergy Intermediate RASH Verified 08/06/22 16:07 Penicillins Allergy Intermediate Unknown Verified 08/06/22 16:07 simvastatin Allergy Intermediate RASH Verified 08/06/22 16:07 lisinopril Allergy Unknown Unknown Verified 08/06/22 16:07 Home Medications Medication Instructions Recorded Confirmed Type atorvastatin 80 mg tablet 80 mg PO QAM 02/09/19 08/20/22 History insulin glargine 100 unit/mL 50 unit subcut HS 02/09/19 08/20/22 History subcutaneous solution (Lantus U-100 Insulin) isosorbide mononitrate 30 mg 30 mg PO QAM 02/09/19 08/20/22 History tablet,extended release 24 hr lorazepam 1 mg tablet 1 mg PO BID PRN anxiety/insomnia 02/09/19 08/20/22 History metformin 1,000 mg tablet 1,000 mg PO BIDM 02/09/19 08/20/22 History nitroglycerin 0.4 mg sublingual 0.4 mg sublingual DIRECTED PRN 02/09/19 08/20/22 History tablet chesst pain pantoprazole 40 mg tablet,delayed 40 mg PO DAILY 02/09/19 08/20/22 History release aspirin 81 mg tablet,delayed 81 mg PO QAM 03/08/19 08/20/22 History release hydrocodone 5 mg-acetaminophen 325 1 tab PO Q6 PRN Pain, Moderate 03/08/19 08/20/22 History mg tablet mecobalamin (vitamin B12) 1,000 1,000 mcg PO DAILY 09/25/20 08/20/22 History mcg chewable tablet polyethylene glycol 3350 17 17 g PO DIRECTED 02/01/21 08/20/22 History gram/dose oral powder (Miralax) sertraline 100 mg tablet 100 mg PO DAILY 02/01/21 08/20/22 History ferrous sulfate 325 mg (65 mg 325 mg PO Q OTHER DAY 05/27/22 08/20/22 History iron) tablet magnesium oxide 400 mg PO AMHS 05/27/22 08/20/22 History diclofenac sodium 1 % topical gel 4 g EXT Q6 PRN pain #100 grams 05/28/22 08/20/22 Rx (Voltaren Arthritis Pain) albuterol sulfate 90 mcg/actuation 2 puff inhalation Q6 PRN 06/08/22 08/20/22 Rx aerosol inhaler (Ventolin HFA) SOB/Wheezing,cough #6.7 grams umeclidinium 62.5 mcg/actuation 1 inh inhalation DAILY #30 ea 06/08/22 08/20/22 Rx blister powder for inhalation (Incruse Ellipta) carvedilol 12.5 mg tablet 12.5 mg PO BID 08/06/22 08/20/22 History triamcinolone acetonide 0.1 % 1 applic topical BID PRN STOMACH 08/06/22 08/20/22 History topical cream RASH sacubitril 49 mg-valsartan 51 mg 1 tab PO BID 30 days #60 tabs 08/08/22 08/20/22 Rx tablet (Entresto) Past Med/Surg History Medical History BPH (benign prostatic hypertrophy) CAD (coronary artery disease) Chronic constipation Chronic diastolic heart failure Chronic 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 Coronary artery disease, occlusive "s/p stent" DM type 2 (diabetes mellitus, type 2) GERD (gastroesophageal reflux disease) 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 HLD (hyperlipidemia) Hypotension Hypotension Lumbago Mood disorder Ribs, multiple fractures Sensorineural hearing loss of both ears Syncope Syncope and collapse Tobacco use disorder Surgical History H/O inguinal hernia repair History of carpal tunnel surgery S/P cardiac cath S/P total knee arthroplasty Stented coronary artery Family History Other COPD (chronic obstructive pulmonary disease) Diabetes Heart disease Rheumatoid arthritis Social History Smoking Status: Former smoker Tobacco Type: Smokeless Tobacco (Dip or Chew) Second Hand Exposure: No; Hx Alcohol Use: No Hx Substance Use: No Preferred Language: Nigerian Communication Ability: Effective Director Of Community Life Required: No Beliefs That Will Affect Care: None Current Living Situation: Spouse Other Information That Helps Us Care for You: No Feels Safe at Home: Yes Safety Concerns: Feels Safe At This Time Assistive Devices: Cane, Denture - Upper, Denture - Lower, Glasses, Hearing Aid - Bilateral and Walker Review of Systems Review of Systems: Neuro: (-) Falls, trauma, slurred speech HEENT: (-) BAUTISTA, dizziness, dysphagia, visual or auditory changes CV: (-) CP, palpitations, swelling Resp: (-) SOB GI: (-) appetite changes, N/V/D, bowel changes : (-) urinary changes Skin: (-) rashes Psych: (+) anxiety, depression Physical Exam Physical Exam: Neuro: AAOx4, PERRLA, no aphagia, memory changes, CNII-XII grossly intact HEENT: head normocephalic, moist mucus membranes CV: S1/S2, (-) M/G/R, (-) edema, cap refill < 3 seconds Resp: Lungs CTA in all aguilar. On RA GI: Abdomen S/NT/ND, Ax4 bowel sounds, (-) CVA tenderness Musculoskeletal: 5/5 B/L UE strength, 5/5 B/L LE strength. No gait disturbance Skin: (-) rashes , (-) erythema. Psych: euthymic mood Results & Data Results & Data ([facility]) Vital Signs (Past 12 Hours) Vital Signs Temp Pulse Pulse Resp BP BP Pulse Ox 08/20/22 14:25 62 18 103/50 L 95 08/20/22 14:25 63 95 08/20/22 14:25 08/20/22 14:08 36.6 C 62 18 103/50 L 93 O2 Del Method 08/20/22 14:25 Room Air 08/20/22 14:25 Room Air 08/20/22 14:25 Room Air 08/20/22 14:08 Room Air Laboratory Results Short CBC 08/20/22 Range/Units 14:10 WBC 7.79 (4.8-10.8) K/ul Hgb 12.6 L (14.0-18.0) g/dl Hct 37.1 L (40.1-51.0) % Plt Count 188 (130-400) K/uL BMP 08/20/22 14:10 Sodium 135 L Potassium 4.5 Chloride 105 Carbon Dioxide 21 BUN 14 Creatinine 1.10 Glucose 160 H Calcium 8.7 Liver Function 08/20/22 Range/Units 14:10 Total Bilirubin 0.5 (0.2-1.0) mg/dl AST 22 (13-39) U/L ALT 21 (7-52) U/L Alkaline Phosphatase 70 (34-104) U/L Albumin 3.7 (3.4-5.0) gm/dl Diagnostic Findings Chest X-Ray 08/20/22 14:13 XR chest 1V portable CLINICAL HISTORY: syncope, CPR TECHNIQUE: Single frontal radiograph of the chest was obtained. Comparison: Comparison is made to chest radiograph dated 05/31/2022 and CTA chest 08/06/2022 FINDINGS: No lines and tubes are seen. Cardiomegaly is noted. Reticular interstitial opacities are seen. No evidence of pleural effusion or pneumothorax. IMPRESSION: No acute chest disease. Cardiomegaly is noted. Interstitial opacities are seen in the lungs. ACT 112: Negative or not required by law. Electronically signed by: Luther Marcial M.D. 08/20/2022 2:48 PM Code Status & VTE Plan Code Status Full code in the event of cardiac or respiratory arrest VTE Prophylaxis Plan VTE Prophylaxis will be ordered: Yes Supervising Physician Co-Signing Physician Notes Patient seen and examined by me, care coordinated with KAYLAH Felipe, please refer to her note above for full detail. Mr. Pal is a 72 yo M that presented to the [facility] ED from outpatient cardiology office where he had a syncopal episode and required chest compressions. Unfortunately this event is recurrent for him. He reports that he gets lightheaded, his forehead gets sweaty, and he was found to be quite hypotensive in cardiology office. 05/28 echocardiogram performed which showed an EF of 60 to 65% with grade 1 diastolic dysfunction; this improved from 2020. Additional PMH includes diabetes type 2 insulin-dependent, COPD, CHF (EF of 60- 65%), CAD s/p stent, HTN,HLD, PVD, BPH, and anxiety. The patient has his license but is no longer driving. Trop 6.2 in the ED. Currently laying in bed in no acute distress. Awake alert oriented answering appropriately. Heart sounds regular. Lung sounds clear to auscultation. No lower extremity edema noted. Abdomen soft nontender nondistended. Outpatient sports equipment racker Dr. Banks was able to communicate that in the time of the event, multiple seven-second pauses were noted at the time of his event in the office today at 1:19 PM. Plan will likely be for pacemaker placement; inpt cardiology aware. Patient made NPO after MN and order placed for external pacer pad placement. MD Mari
[2022-08-20 14:46] LABS: Troponin I High Sensitivity 6.2 pg/ml (0-20)
[2022-08-20] MEDS ORDERED: ONDANSETRON INJ 2 MG/ML 2 ML VIAL IV PRN (14:51)
[2022-08-20] MEDS ORDERED: ALUMINUM/MAGNESIUM SUSP 30 ML UDC PO PRN (14:51)
[2022-08-20] MEDS ORDERED: MAGNESIUM HYDROXIDE SUSP 30 ML UDC PO PRN (14:51)
[2022-08-20] MEDS ORDERED: POLYETHYLENE (MIRALAX) 17 GM PACK PO PRN (14:51)
--- NOTE | 2022-08-20 14:51 | XRay Report ---
XR chest 1V portable CLINICAL HISTORY: syncope, CPR TECHNIQUE: Single frontal radiograph of the chest was obtained. Comparison: Comparison is made to chest radiograph dated 05/31/2022 and CTA chest 08/06/2022 FINDINGS: No lines and tubes are seen. Cardiomegaly is noted. Reticular interstitial opacities are seen. No kanu dence of pleural effusion or pneumothorax. IMPRESSION: No acute chest disease. Cardiomegaly is noted. Interstitial opacities are seen in the lungs. ACT 112: Negative or not required by law. Electronically signed by: Luther Marcial M.D. 08/20/2022 2:48 PM
[2022-08-20 14:55] LABS: Thyroid Stimulating Hormone 7.334 uIu/ml (0.300-4.500)
--- NOTE | 2022-08-20 15:01 | Emergency Department Note ---
Impression & Plan Syncope and collapse, Acute hypotension ED Provider Note INFORMANT: Patient. 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 Banks ED PROVIDER(S): Ilir Lennon MD CHIEF COMPLAINT: Syncope PLAN: Disposition: Admitted Condition: Good Outpatient prescription management: none Referral: None MEDICAL DECISION MAKING: Patient presented because of syncopal episode that was witnessed by cardiology staff. He had about 4 chest compressions of CPR because of no pulse found. He regained consciousness quickly and a follow-up blood pressure was concerning for hypotension. The patient was evaluated. He was hydrated. Currently is asymptomatic. His ECG showed a sinus rhythm without any ischemia. The patient was on the cardiac nurse. His blood pressure was mildly low but not hypotensive. The patient did not exhibit any sign of dysrhythmia. Blood work was performed. Advanced diagnostic imaging was deferred based upon the other prior episodes and the fact that he has no symptoms at this time. After discussion with his pastry cook apprentice, Dr. Banks he recommended admission and cardiac consultation for monitor interrogation. I discussed case with counter caser. I did contact the [facility] service and discussed the case with the team. The patient was evaluated in the ER and admitted for further management. After review of the information above and other included data, I feel the patient requires admission for further management.. Triage Nursing notes reviewed and agree them. Vital Signs: reviewed and remarkable for no significant abnormalities Prior /Outside records reviewed: Prior hospitalization imaging reviewed. No pathology noted on diagnostic imaging. Differential diagnosis: Vasovagal event, dehydration, infection, hypoglycemia, electrolyte abnormalities, cardiac sources, intracerebral event, pulmonary embolism, seizur e, toxicologic, neurologic, as well as other pathologies. Diagnostics, as interpreted by me: ECG: Twelve-lead ECG reveals a sinus rhythm at 61 beats minute. First-degree block and nonspecific ST abnormality. No ST elevation. Cardiac Monitoring: Cardiac monitoring ordered by me: The patient was placed on continuous cardiac monitoring and observed. It revealed a normal sinus rhythm at 62 beats per minute without ectopy or evidence of dysrhythmia. Medical decision rules: none Imaging studies: Deferred HPI: The patient is a 72year old male who presents to the Emergency Room with complaints of syncope. This started just prior to arrival and is the fourth or fifth episode the patient had. This was witnessed by cardiology staff. Patient checked in with normal blood pressure. He was feeling well without any complaints. He was there for follow-up on another syncopal event. He is undergoing work-up for this. He did have an M cot monitor in place. The patient became ashen and [place]ura. He passed out in front of the cardiology staff. The patient apparently did not have a pulse briefly and had 4 compressions and CPR. He then quickly regained consciousness. The patient's blood pressure postevent was 60 systolic. EMS was summoned. Patient was without complaints afterwards. He was given about 700 mL of normal saline prehospital. The patient also notes the following associated symptoms, none. The patient has been given no medication for relieving factors. Current pain is rated as 0/10. Pt denies headache, fevers, chills, diaphoresis, visual changes, neck pain, chest pain, breathing difficulties, nausea, vomiting, abdominal pain, back pain, melena, hematochezia, urinary symptoms, numbness, weakness, lymphadenopathy, rash, or other complaints. PAST MEDICAL HISTORY: See Below, syncope, hypertension PAST SURGICAL HISTORY: See Below, SOCIAL HISTORY: See Below, retired HOME MEDICATIONS: See Below ALLERGIES: See Below VITALS: See Below PHYSICAL EXAMINATION: GENERAL: Awake, alert, well-appearing, in no distress HENT: Normocephalic, atraumatic. Oropharynx unremarkable. EYES: Normal conjunctiva. Sclera non-icteric. NECK: Inspection normal. Non-tender. Supple. No nuchal rigidity. FROM. No masses. RESPIRATORY: Clear to auscultation. No wheezes. No rales. Normal respiratory effort. CARDIAC: Normal rate. Normal rhythm. No murmurs. No rubs. Extremities warm and well perfused. Pulses equal. No JVD. GI: Soft, non-distended. No tenderness to palpation. No rebound or guarding. No masses. RECTAL: Deferred. MUSCULOSKELETAL: Atraumatic. Chest examination reveals no tenderness. Mcot monitor in place. The back is symmetrical on inspection without obvious abnormality. There is no CVA tenderness to palpation. No joint edema. LOWER EXTREMITIES: Calves are equal size bilaterally and non-tender. No edema. No discoloration. NEURO: Normal sensorium. No sensory or motor deficits noted. SKIN: No rash or jaundice noted. Past Med/Surg History Medical History BPH (benign prostatic hypertrophy) CAD (coronary artery disease) Chronic constipation Chronic diastolic heart failure Chronic 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 Coronary artery disease, occlusive "s/p stent" DM type 2 (diabetes mellitus, type 2) GERD (gastroesophageal reflux disease) 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 HLD (hyperlipidemia) Hypotension Hypotension Lumbago Mood disorder Ribs, multiple fractures Sensorineural hearing loss of both ears Syncope Syncope and collapse Tobacco use disorder Surgical History H/O inguinal hernia repair History of carpal tunnel surgery S/P cardiac cath S/P total knee arthroplasty Stented coronary artery Family History Other COPD (chronic obstructive pulmonary disease) Diabetes Heart disease Rheumatoid arthritis Social History Smoking Status: Former smoker Tobacco Type: Smokeless Tobacco (Dip or Chew) Second Hand Exposure: No; Hx Alcohol Use: No Hx Substance Use: No Preferred Language: Gibralt[place] Communication Ability: Effective Technical Documentation Specialist Required: No Beliefs That Will Affect Care: None Current Living Situation: Spouse Other Information That Helps Us Care for You: No Feels Safe at Home: Yes Safety Concerns: Feels Safe At This Time Assistive Devices: Cane, Denture - Upper, Denture - Lower, Glasses, Hearing Aid - Bilateral and Walker Allergies Allergies Allergy/AdvReac Type Severity Reaction Status Date / Time formoterol Allergy Intermediate RASH Verified 08/06/22 16:07 Penicillins Allergy Intermediate Unknown Verified 08/06/22 16:07 simvastatin Allergy Intermediate RASH Verified 08/06/22 16:07 lisinopril Allergy Unknown Unknown Verified 08/06/22 16:07 Home Meds Home Medications Medication Instructions Recorded Confirmed atorvastatin 80 mg tablet 80 mg PO QAM 02/09/19 08/20/22 insulin glargine 100 unit/mL 50 unit subcut HS 02/09/19 08/20/22 subcutaneous solution (Lantus U-100 Insulin) isosorbide mononitrate 30 mg 30 mg PO QAM 02/09/19 08/20/22 tablet,extended release 24 hr lorazepam 1 mg tablet 1 mg PO BID PRN anxiety/insomnia 02/09/19 08/20/22 metformin 1,000 mg tablet 1,000 mg PO BIDM 02/09/19 08/20/22 nitroglycerin 0.4 mg sublingual 0.4 mg sublingual DIRECTED PRN 02/09/19 08/20/22 tablet chesst pain pantoprazole 40 mg tablet,delayed 40 mg PO DAILY 02/09/19 08/20/22 release aspirin 81 mg tablet,delayed 81 mg PO QAM 03/08/19 08/20/22 release hydrocodone 5 mg-acetaminophen 325 1 tab PO Q6 PRN Pain, Moderate 03/08/19 08/20/22 mg tablet mecobalamin (vitamin B12) 1,000 1,000 mcg PO DAILY 09/25/20 08/20/22 mcg chewable tablet polyethylene glycol 3350 17 17 g PO DIRECTED 02/01/21 08/20/22 gram/dose oral powder (Miralax) sertraline 100 mg tablet 100 mg PO DAILY 02/01/21 08/20/22 ferrous sulfate 325 mg (65 mg 325 mg PO Q OTHER DAY 05/27/22 08/20/22 iron) tablet magnesium oxide 400 mg PO AMHS 05/27/22 08/20/22 carvedilol 12.5 mg tablet 12.5 mg PO BID 08/06/22 08/20/22 triamcinolone acetonide 0.1 % 1 applic topical BID PRN STOMACH 08/06/22 08/20/22 topical cream RASH Previous Rx's Medication Instructions Recorded diclofenac sodium 1 % topical gel 4 g EXT Q6 PRN pain #100 grams 05/28/22 (Voltaren Arthritis Pain) albuterol sulfate 90 mcg/actuation 2 puff inhalation Q6 PRN 06/08/22 aerosol inhaler (Ventolin HFA) SOB/Wheezing,cough #6.7 grams umeclidinium 62.5 mcg/actuation 1 inh inhalation DAILY #30 ea 06/08/22 blister powder for inhalation (Incruse Ellipta) sacubitril 49 mg-valsartan 51 mg 1 tab PO BID 30 days #60 tabs 08/08/22 tablet (Entresto) Results & Data (ED) Vital Signs Vital Signs - 24 hr 08/20/22 14:08 08/20/22 14:25 08/20/22 14:25 Temperature 36.6 C Temperature Source Oral Pulse Rate 62 63 Pulse Rate [Apical] Respiratory Rate 18 Respiratory Effort / Characteristics Non-Labored Respiratory Depth Normal Respiratory Pattern Regular Blood Pressure 103/50 L Blood Pressure [Left Arm] Blood Pressure Mean 67 Blood Pressure Mean [Left Arm] Pulse Oximetry 93 95 Oxygen Delivery Method Room Air Room Air Room Air Sepsis New/Unexplained Change in Mental Status No Sepsis Action Taken by Nursing No Action Required 08/20/22 14:25 Temperature Temperature Source Pulse Rate Pulse Rate [Apical] 62 Respiratory Rate 18 Respiratory Effort / Characteristics Non-Labored Respiratory Depth Normal Respiratory Pattern Blood Pressure Blood Pressure [Left Arm] 103/50 L Blood Pressure Mean Blood Pressure Mean [Left Arm] 67 Pulse Oximetry 95 Oxygen Delivery Method Room Air Sepsis New/Unexplained Change in Mental Status Sepsis Action Taken by Nursing Laboratory Data 08/20/22 14:10 08/20/22 14:10 Lab Results 08/20/22 08/20/22 08/20/22 Range/Units 14:10 14:10 14:10 WBC 7.79 (4.8-10.8) K/ul RBC 3.90 L (4.63-6.08) M/uL Hgb 12.6 L (14.0-18.0) g/dl Hct 37.1 L (40.1-51.0) % MCV 95.1 (80.0-100.0) fL MCH 32.3 (25.0-34.0) pg MCHC 34.0 (32.0-36.0) g/dL RDW Std Deviation 45.6 (36.4-46.3) fL RDW Coeff of Alesia 13.0 (11.5-14.5) % Plt Count 188 (130-400) K/uL MPV 9.1 L (9.4-12.4) fL Immature Gran % (Auto) 0.5 % Neut % (Auto) 63.8 % Lymph % (Auto) 16.3 % [place] % (Auto) 10.8 % Eos % (Auto) 7.4 % Baso % (Auto) 1.2 % Neut # (Auto) 4.97 (1.4-6.5) K/uL Lymph # (Auto) 1.27 (1.2-3.4) K/uL [place] # (Auto) 0.84 H (0.24-0.82) K/uL Eos # (Auto) 0.58 H (0-0.50) K/uL Baso # (Auto) 0.09 (0-0.2) K/uL Immature Gran # (Auto) 0.04 H (0.00-0.02) K/uL Sodium 135 L (136-145) mmol/L Potassium 4.5 (3.5-5.1) mmol/L Chloride 105 (98-107) mmol/L Carbon Dioxide 21 (21-32) mmol/L Anion Gap 9 (3-11) BUN 14 (6-23) mg/dl Creatinine 1.10 (0.6-1.4) mg/dl Est Cr Clr Drug Dosing Not Reportable Est GFR ( Amer) 76.2 ml/min Est GFR (Non-Af Amer) 65.8 ml/min BUN/Creatinine Ratio 12.7 (10-20) Glucose 160 H (70-99(Fasting)) mg/dl Calcium 8.7 (8.5-10.1) mg/dl Magnesium 1.4 L (1.7-2.4) mg/dl Total Bilirubin 0.5 (0.2-1.0) mg/dl AST 22 (13-39) U/L ALT 21 (7-52) U/L Alkaline Phosphatase 70 (34-104) U/L Troponin I High Sens 6.2 (0-20) pg/ml Total Protein 6.4 (6.0-8.3) gm/dl Albumin 3.7 (3.4-5.0) gm/dl Globulin 2.7 (2.5-4.0) gm/dl Albumin/Globulin Ratio 1.4 (0.9-2) TSH 7.334 H (0.300-4.500) uIu/ml Free T4 0.73 (0.61-1.60) ng/dl SARS-CoV-2, RNA, NAAT (NEGATIVE) 08/20/22 Range/Units 14:36 WBC (4.8-10.8) K/ul RBC (4.63-6.08) M/uL Hgb (14.0-18.0) g/dl Hct (40.1-51.0) % MCV (80.0-100.0) fL MCH (25.0-34.0) pg MCHC (32.0-36.0) g/dL RDW Std Deviation (36.4-46.3) fL RDW Coeff of Alesia (11.5-14.5) % Plt Count (130-400) K/uL MPV (9.4-12.4) fL Immature Gran % (Auto) % Neut % (Auto) % Lymph % (Auto) % [place] % (Auto) % Eos % (Auto) % Baso % (Auto) % Neut # (Auto) (1.4-6.5) K/uL Lymph # (Auto) (1.2-3.4) K/uL [place] # (Auto) (0.24-0.82) K/uL Eos # (Auto) (0-0.50) K/uL Baso # (Auto) (0-0.2) K/uL Immature Gran # (Auto) (0.00-0.02) K/uL Sodium (136-145) mmol/L Potassium (3.5-5.1) mmol/L Chloride (98-107) mmol/L Carbon Dioxide (21-32) mmol/L Anion Gap (3-11) BUN (6-23) mg/dl Creatinine (0.6-1.4) mg/dl Est Cr Clr Drug Dosing Est GFR ( Amer) ml/min Est GFR (Non-Af Amer) ml/min BUN/Creatinine Ratio (10-20) Glucose (70-99(Fasting)) mg/dl Calcium (8.5-10.1) mg/dl Magnesium (1.7-2.4) mg/dl Total Bilirubin (0.2-1.0) mg/dl AST (13-39) U/L ALT (7-52) U/L Alkaline Phosphatase (34-104) U/L Troponin I High Sens (0-20) pg/ml Total Protein (6.0-8.3) gm/dl Albumin (3.4-5.0) gm/dl Globulin (2.5-4.0) gm/dl Albumin/Globulin Ratio (0.9-2) TSH (0.300-4.500) uIu/ml Free T4 (0.61-1.60) ng/dl SARS-CoV-2, RNA, NAAT NEGATIVE (NEGATIVE) Administered Medications Aspirin (Aspirin 81 Mg Ectab) [facility]: 09/20/22 08:59 Last Admin: 08/21/22 08:42 Dose: 81 mg Documented By: AM Atorvastatin Calcium (Atorvastatin 40 Mg Tab) [facility] Stop: 09/20/22 08:59 Last Admin: 08/21/22 08:43 Dose: 80 mg Documented By: AM Cyanocobalamin (Cyanocobalamin (B-12) 500 Mcg Tablet) 1,000 mcg PO DAILY [facility] Stop: 09/20/22 08:59 Last Admin: 08/21/22 08:42 Dose: 1,000 mcg Documented By: AM Ferrous Sulfate (Ferrous Sulfate 325 Mg Tab) 325 mg PO Q2D@0900 [facility] Stop: 09/20/22 08:59 Last Admin: 08/21/22 08:42 Dose: 325 mg Documented By: AM Heparin Sodium (Porcine) (Heparin Sod 5,000 Unit/0.5 Ml Vial) 5,000 units SQ Q12 [facility] Stop: 09/19/22 20:59 Last Admin: 08/21/22 21:21 Dose: 5,000 units Documented By: Admin: 08/21/22 08:44 Dose: 5,000 units Documented By: Admin: 08/20/22 21:22 Dose: 5,000 units Documented By: ARR Insulin Aspart (Insulin Aspart Per Unit) 0 units SC ACHS [facility] Stop: 09/19/22 16:29 Last Admin: 08/21/22 21:26 Dose: 2 units Documented By: ARR Co-signed By: EL Admin: 08/21/22 17:33 Dose: 13 units Documented By: AM Co-signed By: CA Admin: 08/21/22 12:19 Dose: 8 units Documented By: AM Co-signed By: ENS Admin: 08/21/22 09:27 Dose: 4 units Documented By: AM Co-signed By: DTT Admin: 08/20/22 21:18 Dose: Not Given Documented By: Admin: 08/20/22 18:00 Dose: Not Given Documented By: NMS Isosorbide Mononitrate (Isosorbide [place] Extended Rel 30 Mg Tabcr) 30 mg PO [facility] Stop: 09/20/22 08:59 Last Admin: 08/21/22 09:23 Dose: 30 mg Documented By: AM Lorazepam (Lorazepam 1 Mg Tab) 1 mg PO BID PRN PRN Reason: anxiety/insomnia Stop: 09/19/22 16:32 Last Admin: 08/21/22 23:18 Dose: 1 mg Documented By: Admin: 08/20/22 23:39 Dose: 1 mg Documented By: ARR Magnesium Oxide (Magnesium Oxide 400 Mg Tab) 400 mg PO AMHS [facility] Stop: 09/19/22 20:59 Last Admin: 08/21/22 21:22 Dose: 400 mg Documented By: Admin: 08/21/22 08:43 Dose: 400 mg Documented By: Admin: 08/20/22 21:21 Dose: 400 mg Documented By: ARR Pantoprazole Sodium (Pantoprazole 40 Mg Tab) 40 mg PO DAILY [facility] Stop: 09/20/22 08:59 Last Admin: 08/21/22 08:42 Dose: 40 mg Documented By: AM Sacubitril/Valsartan (Valsartan/Sacubitril 26/24mg Tab) 1 tab PO BID [facility] Stop: 09/20/22 08:59 Last Admin: 08/21/22 21:22 Dose: 1 tab Documented By: Admin: 08/21/22 09:23 Dose: 1 tab Documented By: AM Sertraline HCl (Sertraline Hcl 100 Mg Tablet) 100 mg PO DAILY [facility] Stop: 09/20/22 08:59 Last Admin: 08/21/22 08:43 Dose: 100 mg Documented By: AM Triamcinolone Acetonide (Triamcinolone Acet 0.1% Cr 15 Gm Tube) 1 appln TOP BID PRN PRN Reason: STOMACH RASH Stop: 09/19/22 16:32 Last Admin: 08/21/22 23:19 Dose: 1 appln Documented By: JUAQUIN Umeclidinium [place] (Umeclidinium [place] 62.5mcg/Blister 7 Puffs/Inhaler) 1 puffs INH DAILY [facility] Stop: 09/20/22 08:59 Last Admin: 08/21/22 08:45 Dose: 1 puffs Documented By: AM Discontinued Medications Sodium Chloride (Nss 1000ml) 1,000 mls @ 125 mls/hr IV .Q8H [facility] Stop: 08/20/22 22:14 Last Infusion: 08/20/22 21:35 Dose: 0 mls/hr Documented By: Admin: 08/20/22 14:34 Dose: 125 mls/hr Documented By: ML Magnesium Sulfate/Dextrose (Magnesium Sulfate / D5w) 1 gm in 100 mls @ 50 mls/hr IV ONE ONE Stop: 08/20/22 17:29 Last Infusion: 08/20/22 19:05 Dose: 0 mls/hr Documented By: Admin: 08/20/22 17:05 Dose: 50 mls/hr Documented By: JPJoshua Insulin Glargine (Lantus Per Unit Charge) 0 units SQ BID [facility]UDRE[facility]; Protocol Stop: 09/19/22 20:59 Last Admin: 08/20/22 21:17 Dose: Not Given Documented By: ARR Insulin Glargine (Lantus Per Unit Charge) 15 units SQ ONE ONE Stop: 08/21/22 11:46 Last Admin: 08/21/22 12:20 Dose: 15 units Documented By: AM Co-signed By: Insulin Glargine (Lantus Per Unit Charge) 0 units SC HS AUDREY; Protocol Stop: 08/21/22 21:01 Last Admin: 08/21/22 21:27 Dose: 10 units Documented By: ARR Co-signed By: CESAR Imaging Data Radiologist's Impression: Chest X-Ray 08/20/22 14:13 XR chest 1V portable CLINICAL HISTORY: syncope, CPR TECHNIQUE: Single frontal radiograph of the chest was obtained. Comparison: Comparison is made to chest radiograph dated 05/31/2022 and CTA chest 08/06/2022 FINDINGS: No lines and tubes are seen. Cardiomegaly is noted. Reticular interstitial opacities are seen. No evidence of pleural effusion or pneumothorax. IMPRESSION: No acute chest disease. Cardiomegaly is noted. Interstitial opacities are seen in the lungs. ACT 112: Negative or not required by law. Electronically signed by: Luther Marcial M.D. 08/20/2022 2:48 PM Discharge Plan Visit Data Chief Complaint: Syncope Stated Complaint: SYNCOPE ED Provider: Ilir Lennon Discharge Problem: Syncope and collapse, Acute hypotension Patient Disposition: Admitted As Inpatient Discharge Instructions Interventions: ED Discharge Assessment Last Done: 08/20/22 17:15
[2022-08-20 15:29] LABS: T4 Free Thyroxine 0.73 ng/dl (0.61-1.60)
[2022-08-20] MEDS ORDERED: MAGNESIUM SULFATE / D5W 1 GM/100 ML BAG IV ONE (15:30)
--- NOTE | 2022-08-20 16:01 | Cardiology Consultation ---
Date of Consultation August 20, 2022 Assessment & Plan (1) Syncope and collapse: (2) Acute hypotension: (3) HLD (hyperlipidemia): (4) Chronic anemia: (5) Chronic diastolic heart failure: (6) HTN (hypertension): (7) Pulmonary fibrosis: (8) Ex-smoker: (9) Restrictive lung disease: (10) COPD with emphysema: (11) H/O intracranial hemorrhage: (12) DM type 2 (diabetes mellitus, type 2): (13) CAD (coronary artery disease): (14) H/O subarachnoid hemorrhage: Plan This is now the second episode of witnessed syncope in 2 weeks This episode occurred while the patient was seated and blood pressure was confirmed to be immediately prior to the event He came to with for chest compressions but this was more likely due to the painful stimuli At this point, the most likely cause is a significant sinus pause He does have an event recorder on, unfortunately, it stopped picking up data on the due to lack of cell service in the area where he lives Will monitor on telemetry and should he have any significant sinus pauses then permanent pacemaker will be placed. Obviously, should he have any significant ventricular arrhythmias ICD will be placed Should telemetry monitoring be unremarkable then will need to proceed with a Linq insertion All of his outpatient antihypertensives will be held at this time Will likely start low-dose metoprolol in the a.m. History of Present Illness Reason for Consultation: Syncope Requesting Physician: [facility] History of Present Illness It was my pleasure to see Mr. Pal in cardiac consultation today. He is a very pleasant 72-year-old gentleman who is very well-known to our cardiology practice. He presented to the emergency department today via EMS from [facility] for recurrent syncopal event. This is almost a carbon copy of the episode that occurred in [facility] offices on 08/06/2022. The patient came in for routine evaluation. He was wheeled back for evaluation in a wheelchair stating that he was feeling weak. He states he has had continued lightheadedness and dizzy spells being unsteady on his feet but is not had any recurrent syncope. Vitals were obtained which showed a blood pressure of 112/66 and a pulse of 72. When he mention to Kana Somers that he started to feel lightheaded he checked bilateral blood pressures which were both 64/38. The patient then lost consciousness. He was incontinent of urine and initially aroused with a sternal rub. He then again lost consciousness. ROBERT WILKINSON was called. He was lowered onto the ground and received 3 or 4 chest compressions at which he regained consciousness. An IV was established in his right arm, receiving 500 mL's of fluid. Follow-up BP while supine was 144/82 and then 120/78. SP02 was 94% on room air. Heart rate was 64 bpm. EKG revealed sinus without acute injury pattern. Problem List: 1. ASCVD. 1. History of NSTEMI , PCI with a bare metal stent to the OM1 on 02/03/12 at [facility]. 2. Patent OM1 stent with mild nonobstructive CAD noted elsewhere via the [place] [facility] [place] 2. History of diastolic congestive heart failure. 3. Asymptomatic ventricular ectopy, with preserved LV systolic function 4. Hypertension. 5. Dyslipidemia. 6. Mild bilateral internal carotid artery disease. 7. Past intracranial hemorrhage, requiring craniotomy, 2007 8. Type 2 diabetes mellitus, followed by PCP 9. Prior rash, possible drug reaction to metoprolol - tolerating carvedilol 10. History of tobacco abuse, COPD, recurrent bronchitis 11. Hypomagnesemia 12. Status post elective right [place] [facility] [place]. 13. Erectile dysfunction 14. BPH with LUTS 15. Status post 11/07/2021 right knee PRP injection by Dr. Munoz 16. Chronic low back pain. Allergies Allergy/AdvReac Type Severity Reaction Status Date / Time formoterol Allergy Intermediate RASH Verified 08/06/22 16:07 Penicillins Allergy Intermediate Unknown Verified 08/06/22 16:07 simvastatin Allergy Intermediate RASH Verified 08/06/22 16:07 lisinopril Allergy Unknown Unknown Verified 08/06/22 16:07 Home Medications Medication Instructions Recorded Confirmed Type atorvastatin 80 mg tablet 80 mg PO QAM 02/09/19 08/06/22 History insulin glargine 100 unit/mL 50 unit subcut HS 02/09/19 08/06/22 History subcutaneous solution (Lantus U-100 Insulin) isosorbide mononitrate 30 mg 30 mg PO QAM 02/09/19 08/06/22 History tablet,extended release 24 hr lorazepam 1 mg tablet 1 mg PO BID PRN anxiety/insomnia 02/09/19 08/06/22 History metformin 1,000 mg tablet 1,000 mg PO BIDM 02/09/19 08/06/22 History nitroglycerin 0.4 mg sublingual 0.4 mg sublingual DIRECTED PRN 02/09/19 08/06/22 History tablet chesst pain pantoprazole 40 mg tablet,delayed 40 mg PO DAILY 02/09/19 08/06/22 History release aspirin 81 mg tablet,delayed 81 mg PO QAM 03/08/19 08/06/22 History release hydrocodone 5 mg-acetaminophen 325 1 tab PO Q6 PRN Pain, Moderate 03/08/19 08/06/22 History mg tablet mecobalamin (vitamin B12) 1,000 1,000 mcg PO DAILY 09/25/20 08/06/22 History mcg chewable tablet polyethylene glycol 3350 17 17 g PO DIRECTED 02/01/21 08/06/22 History gram/dose oral powder (Miralax) sertraline 100 mg tablet 100 mg PO DAILY 02/01/21 08/06/22 History ferrous sulfate 325 mg (65 mg 325 mg PO Q OTHER DAY 05/27/22 08/06/22 History iron) tablet magnesium oxide 400 mg PO AMHS 05/27/22 08/06/22 History diclofenac sodium 1 % topical gel 4 g EXT Q6 PRN pain #100 grams 05/28/22 08/06/22 Rx (Voltaren Arthritis Pain) albuterol sulfate 90 mcg/actuation 2 puff inhalation Q6 PRN 06/08/22 08/06/22 Rx aerosol inhaler (Ventolin HFA) SOB/Wheezing,cough #6.7 grams umeclidinium 62.5 mcg/actuation 1 inh inhalation DAILY #30 ea 06/08/22 08/06/22 Rx blister powder for inhalation (Incruse Ellipta) carvedilol 12.5 mg tablet 12.5 mg PO BID 08/06/22 08/06/22 History triamcinolone acetonide 0.1 % 1 applic topical BID PRN STOMACH 08/06/22 08/06/22 History topical cream RASH sacubitril 49 mg-valsartan 51 mg 1 tab PO BID 30 days #60 tabs 08/08/22 Rx tablet (Entresto) Patient History Medical History BPH (benign prostatic hypertrophy) CAD (coronary artery disease) Chronic constipation Chronic diastolic heart failure Chronic 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 Coronary artery disease, occlusive "s/p stent" DM type 2 (diabetes mellitus, type 2) GERD (gastroesophageal reflux disease) 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 HLD (hyperlipidemia) Hypotension Hypotension Lumbago Mood disorder Ribs, multiple fractures Sensorineural hearing loss of both ears Syncope Syncope and collapse Tobacco use disorder Surgical History H/O inguinal hernia repair History of carpal tunnel surgery S/P cardiac cath S/P total knee arthroplasty Stented coronary artery Family History Other COPD (chronic obstructive pulmonary disease) Diabetes Heart disease Rheumatoid arthritis Social History Smoking Status: Former smoker Tobacco Type: Smokeless Tobacco (Dip or Chew) Second Hand Exposure: No; Hx Alcohol Use: No Hx Substance Use: No Preferred Language: Turkmen Communication Ability: Effective Directory Compiler Required: No Beliefs That Will Affect Care: None Current Living Situation: Spouse Feels Safe at Home: Yes Assistive Devices: Cane, Denture - Upper, Denture - Lower, Glasses, Hearing Aid - Bilateral and Walker Review of Systems Review of Systems: All systems reviewed & are unremarkable except as noted in HPI & below Physical Exam Physical Exam: General: Awake, alert and oriented x 3. No acute distress. HEENT: Normocephalic, atraumatic. Pupils equal, round and reactive to light and accommodation. Extraocular muscles are intact. Anicteric sclera. Moist mucous membranes. Neck: No JVD. No bruit. Cardiovascular: Regular. Positive S-4. Normal S-1 and S-2. No S-3. 3/6 mid to late systolic ejection murmur, greatest at the right sternal border, second intercostal space with radiation to the bilateral carotids. No rubs. Pulmonary: Clear to auscultation bilaterally. No rales, rhonchi, or wheezing. Abdomen: Bowel sounds x 4, soft. No rebound, guarding or tenderness. No organomegaly. Extremities: No clubbing, cyanosis or edema. +2 pedal pulses bilaterally. Skin: Warm and dry. Results & Data ([facility]) Vital Signs (Past 12 Hours) Vital Signs Temp Pulse Pulse Resp BP BP Pulse Ox 08/20/22 14:25 62 18 103/50 L 95 08/20/22 14:25 63 95 08/20/22 14:25 08/20/22 14:08 36.6 C 62 18 103/50 L 93 O2 Del Method 08/20/22 14:25 Room Air 08/20/22 14:25 Room Air 08/20/22 14:25 Room Air 08/20/22 14:08 Room Air Diagnostic Findings Data: April 29, 2022 TTE Interpretation Summary (as per Dr. Banks): The LV wall thickness is moderately increased (concentric). The left ventricular wall motion is normal. Calculated LV ejection Fraction = 64% (bi-plane method of discs). The left ventricular diastolic function is mildly abnormal (grade I). Mild mitral regurgitation is present. Mild aortic valve sclerosis is present. Aortic stenosis is absent. April 29, 2022 Lexiscan Interpretation Summary (as per Dr. Banks): Lexiscan nuclear cardiac stress test negative for ischemia. Gated SPECT imaging reveals normal myocardial thickening and wall motion. The left ventricular ejection fraction was calculated to be 64%. The stress EKG response is nondiagnostic due to the baseline repolarization changes which did not change significantly with pharmacologic stress. No significant arrhythmias were observed. May 28, 2022 TTE Interpretation Summary ([facility], Dr. Astorga): Compared to prior study, there was no significant change. The left ventricle is normal in size. There is moderate concentric LVH. Normal LV wall motion. Ejection fraction 60 to 65%. Grade 1 diastolic dysfunction. Aortic valve sclerosis, moderate, without significant aortic valve stenosis. No pericardial effusion.
[2022-08-20] MEDS ORDERED: GLUCOSE 10 TAB/TUBE PO PRN (16:09)
[2022-08-20] MEDS ORDERED: GLUCAGON FOR INJ 1 MG VIAL SQ PRN (16:09)
[2022-08-20] MEDS ORDERED: DEXTROSE 50% 50 ML SYRINGE IV PRN (16:09)
[2022-08-20] MEDS ORDERED: GLUCOSE 40% GEL 15 GM TUBE PO PRN (16:09)
[2022-08-20] MEDS ORDERED: PHARMACY GLYCEMIC MGMT CONSULT PRN (16:09)
[2022-08-20] MEDS ORDERED: CARBOHYDRATES FOR HYPOGLYCEMIA PO PRN (16:09)
[2022-08-20] MEDS ORDERED: DICLOFENAC SOD 1% GEL 100 GM TUBE EXT PRN (16:33)
[2022-08-20] MEDS ORDERED: ALBUTEROL HFA 8 GM INHALER INH PRN (16:33)
[2022-08-20] MEDS ORDERED: TRIAMCINOLONE ACET 0.1% CR 15 GM TUBE TOP PRN (16:33)
[2022-08-20] MEDS ORDERED: HYDROCODONE/ACETAMOPHEN 5/325MG TAB PO PRN (16:33)
--- NOTE | 2022-08-20 17:17 | Electrocardiogram Report ---
Test Reason : Blood Pressure : / mmHG Vent. Rate : 061 BPM Atrial Rate : 061 BPM P-R Int : 210 ms QRS Dur : 072 ms QT Int : 422 ms P-R-T Axes : 018 -10 097 degrees QTc Int : 424 ms Sinus rhythm with 1st degree A-V block T wave abnormality, consider lateral ischemia Abnormal ECG When compared with ECG of 07-AUG-2022 05:52, Criteria for Septal infarct are no longer Present Confirmed by Kevin Larson ([id number]) on 08/20/2022 5:17:16 PM Referred By: Confirmed By:Kevin Larson
[2022-08-20] MEDS: INSULIN ASPART PER UNIT SC SCH ×2 (18:00→21:18)
[2022-08-20 20:27] LABS: Appearance Urine Clear (Clear); Bacteria Urine Automated Negative (Negative); Bilirubin Urine Negative (Negative); Blood Urine Negative (Negative); Cast Urine Automated 0 /lpf (0-5); Color Urine Yellow; Epithelial Cell Urine Auto 0-5 /lpf (0-5); Glucose Urine UA Negative (Negative); Ketones Urine Negative (Negative); Leukocyte Esterase Urine Negative (Negative); Nitrite Urine Negative (Negative); Protein Urine Trace (Negative); RBC Urine Automated 0-4 /hpf (0-4); Urobilinogen Urine Negative (Negative); WBC Urine Automated 0 /hpf (0-5)
[2022-08-20] MEDS ORDERED: LANTUS PER UNIT CHARGE SQ SCH ×2 (21:00)
[2022-08-20] MEDS: MAGNESIUM OXIDE 400 MG TAB PO SCH (21:21)
[2022-08-20] MEDS: HEPARIN SOD 5,000 UNIT/0.5 ML VIAL SQ SCH (21:22)
[2022-08-20] MEDS: LORazepam 1 MG TAB PO PRN (23:39)
[2022-08-21 06:55] LABS: Hematocrit (blood only) 38.3 % (40.1-51.0); Hemoglobin 12.7 g/dl (14.0-18.0); Mean Corpuscular Hemoglobin 31.6 pg (25.0-34.0); Mean Corpuscular Hgb Conc 33.2 g/dL (32.0-36.0); Mean Corpuscular Volume 95.3 fL (80.0-100.0); Platelet Count 162 K/uL (130-400); RDW Standard Deviation 45.3 fL (36.4-46.3); Red Blood Count 4.02 M/uL (4.63-6.08); White Blood Count 7.37 K/ul (4.8-10.8)
[2022-08-21 07:32] LABS: Potassium 4.3 mmol/L (3.5-5.1)
[2022-08-21 07:38] LABS: BUN Creatinine Ratio 15.3 (10-20); C Reactive Protein 0.56 mg/dl (0-0.5); Chol HDL Ratio 3.8 (0-5); Creatinine Clr Calc Pharmacy 74.1 ml/min; Est GFR (African American) 87.7 ml/min; Est GFR (Non-African American) 75.6 ml/min
[2022-08-21 08:06] LABS: Estimated Average Glucose 163 mg/dl; Hemoglobin A1C 7.3 % (4.5-5.6)
--- NOTE | 2022-08-21 08:20 | Hospitalist Progress Note ---
Date of Service August 21, 2022 Assessment & Plan (1) Hypotension: (2) Syncope and collapse: (3) CAD (coronary artery disease): (4) DM type 2 (diabetes mellitus, type 2): (5) COPD (chronic obstructive pulmonary disease): (6) HLD (hyperlipidemia): Plan 72-year-old presents with recurrent syncope, found to have 7s pause during the event Hypotension: Syncope: Pt was hypotensive in outpatient office; [place], dusky, pale, cool and clammy. Received IVF on admission Lactic Acid elevated Do not suspect infectious in nature and infectious work-up negative Pt is euvolemic on exam, I/O ordered PT/OT Orthostatic BP's TSH 7.334; Free T4 normal. Monitor on telemetry Pt found to have 7 s pause during the event on heart monitor Plan for pacemaker on Tuesday Cardiology consulted and following CAD: HTN: ECHO 05/28: EF 60-65%; improved from 2020 where EF was 55-60%: Grade 1 diastolic failure Continue baby aspirin Initially held carvedilol, Imdur, Entresto Pt hypertensive and some of home meds restarted Cont. to hold coreg Cardiology following DM2: Holding metformin while inpatient Patient takes Lantus SQ at home; continue as ordered SSI with ACHS checks A1C on 05/28 was 6.7 Glycemic Pharmacy consult to assist with Lantus management H/O COPD: continue on home inhalers CXR this AM - without any acute process Does not require supplemental O2 at baseline Smoking cessation encouraged, Pt uses chewing tobacco. Declines Nicotine patch offering. HLD: Continue atorvastatin Disposition: PCP: Dr. Ruffin Code Status: Full Code VTE Prophylaxis: Lovenox SQ Admission and Anticipated Discharge Date Admission Date: August 20, 2022 Subjective Pt seen in follow-up of syncopal episode in cardiology office as outpatient yesterday Monitor noted 7-second pause Cardio following, and plan for pacemaker placement on Tuesday Currently patient is lying in bed, in NAD Family present at the bedside Patient denies any chest pain, palpitations, dizziness, also denies shortness of breath or any discomfort Review of Systems Review of Systems: All systems reviewed & are unremarkable except as noted in Subjective Physical Exam Physical Exam: General:WD/WN M in NAD HEENT: head normocephalic, moist mucus membranes, EOMI CV: S1/S2, (-) M/G/R, (-) LE edema Resp: Lungs CTA in all aguilar. On RA GI: Abdomen S/NT/ND, Ax4 bowel sounds, (-) CVA tenderness Musculoskeletal: 5/5 B/L UE strength, 5/5 B/L LE strength. Skin: (-) rashes , (-) erythema. Neuro/Psych: Awake alert oriented, answers appropriately, hard of hearing, moves extremities Results & Data Results & Data ([facility]) Vital Signs (Past 12 Hours) Vital Signs Temp Pulse Pulse Resp BP Pulse Ox O2 Del Method 08/21/22 08:13 58 L 08/21/22 07:31 36.7 C 61 18 173/92 H 93 Room Air 08/21/22 03:15 36.6 C 66 18 182/92 H 96 Room Air 08/21/22 01:35 67 08/20/22 23:00 36.7 C 65 20 181/89 H 96 Room Air 08/20/22 20:26 36.5 C 18 96 Room Air Laboratory Results 08/21/22 08/21/22 08/21/22 Range/Units 07:41 06:38 06:38 WBC (4.8-10.8) K/ul RBC (4.63-6.08) M/uL Hgb (14.0-18.0) g/dl Hct (40.1-51.0) % MCV (80.0-100.0) fL MCH (25.0-34.0) pg MCHC (32.0-36.0) g/dL RDW Std Deviation (36.4-46.3) fL RDW Coeff of Alesia (11.5-14.5) % Plt Count (130-400) K/uL MPV (9.4-12.4) fL Immature Gran % (Auto) % Neut % (Auto) % Lymph % (Auto) % [facility] % (Auto) % Eos % (Auto) % Baso % (Auto) % Neut # (Auto) (1.4-6.5) K/uL Lymph # (Auto) (1.2-3.4) K/uL [facility] # (Auto) (0.24-0.82) K/uL Eos # (Auto) (0-0.50) K/uL Baso # (Auto) (0-0.2) K/uL Immature Gran # (Auto) (0.00-0.02) K/uL ESR (0-20) mm/hr Sodium 136 (136-145) mmol/L Potassium 4.3 (3.5-5.1) mmol/L Chloride 105 (98-107) mmol/L Carbon Dioxide 25 (21-32) mmol/L Anion Gap 6 (3-11) BUN 15 (6-23) mg/dl Creatinine 0.98 (0.6-1.4) mg/dl Est Cr Clr Drug Dosing 74.1 Est GFR ( Amer) 87.7 ml/min Est GFR (Non-Af Amer) 75.6 ml/min BUN/Creatinine Ratio 15.3 (10-20) Glucose 101 H (70-99(Fasting)) mg/dl POC Glucose 104 H (70-99) mg/dl Estimat Average Glucose mg/dl Hemoglobin A1c (4.5-5.6) % Lactate (0.4-2.0) mmol/L Calcium 9.0 (8.5-10.1) mg/dl Magnesium (1.7-2.4) mg/dl Total Bilirubin (0.2-1.0) mg/dl AST (13-39) U/L ALT (7-52) U/L Alkaline Phosphatase (34-104) U/L Troponin I High Sens (0-20) pg/ml C-Reactive Protein 0.56 H (0-0.5) mg/dl Total Protein (6.0-8.3) gm/dl Albumin (3.4-5.0) gm/dl Globulin (2.5-4.0) gm/dl Albumin/Globulin Ratio (0.9-2) Triglycerides 270 H (0-150) mg/dl Cholesterol 95 (0-200) mg/dl LDL Cholesterol, Calc 16 mg/dl VLDL Cholesterol, Calc 54 H (0-30) mg/dl HDL Cholesterol 25 mg/dl Cholesterol/HDL Ratio 3.8 (0-5) Procalcitonin < 0.05 (0-0.5) ng/ml TSH (0.300-4.500) uIu/ml Free T4 (0.61-1.60) ng/dl Urine Color Urine Appearance (Clear) Urine pH (4.5-7.5) Ur Specific [place] (1.000-1.030) Urine Protein (Negative) Urine Glucose (UA) (Negative) Urine Ketones (Negative) Urine Blood (Negative) Urine Nitrite (Negative) Urine Bilirubin (Negative) Urine Urobilinogen (Negative) Ur Leukocyte Esterase (Negative) Urine WBC (Auto) (0-5) /hpf Urine RBC (Auto) (0-4) /hpf U Hyaline Cast (Auto) (0-5) /lpf U Epithel Cells (Auto) (0-5) /lpf Urine Bacteria (Auto) (Negative) SARS-CoV-2, RNA, NAAT (NEGATIVE) 08/21/22 08/21/22 08/21/22 Range/Units 06:38 06:38 06:38 WBC 7.37 (4.8-10.8) K/ul RBC 4.02 L (4.63-6.08) M/uL Hgb 12.7 L (14.0-18.0) g/dl Hct 38.3 L (40.1-51.0) % MCV 95.3 (80.0-100.0) fL MCH 31.6 (25.0-34.0) pg MCHC 33.2 (32.0-36.0) g/dL RDW Std Deviation 45.3 (36.4-46.3) fL RDW Coeff of Alesia 13.0 (11.5-14.5) % Plt Count 162 (130-400) K/uL MPV 9.0 L (9.4-12.4) fL Immature Gran % (Auto) % Neut % (Auto) % Lymph % (Auto) % [facility] % (Auto) % Eos % (Auto) % Baso % (Auto) % Neut # (Auto) (1.4-6.5) K/uL Lymph # (Auto) (1.2-3.4) K/uL [facility] # (Auto) (0.24-0.82) K/uL Eos # (Auto) (0-0.50) K/uL Baso # (Auto) (0-0.2) K/uL Immature Gran # (Auto) (0.00-0.02) K/uL ESR 29 H (0-20) mm/hr Sodium (136-145) mmol/L Potassium (3.5-5.1) mmol/L Chloride (98-107) mmol/L Carbon Dioxide (21-32) mmol/L Anion Gap (3-11) BUN (6-23) mg/dl Creatinine (0.6-1.4) mg/dl Est Cr Clr Drug Dosing Est GFR ( Amer) ml/min Est GFR (Non-Af Amer) ml/min BUN/Creatinine Ratio (10-20) Glucose (70-99(Fasting)) mg/dl POC Glucose (70-99) mg/dl Estimat Average Glucose 163 mg/dl Hemoglobin A1c 7.3 H (4.5-5.6) % Lactate (0.4-2.0) mmol/L Calcium (8.5-10.1) mg/dl Magnesium (1.7-2.4) mg/dl Total Bilirubin (0.2-1.0) mg/dl AST (13-39) U/L ALT (7-52) U/L Alkaline Phosphatase (34-104) U/L Troponin I High Sens (0-20) pg/ml C-Reactive Protein (0-0.5) mg/dl Total Protein (6.0-8.3) gm/dl Albumin (3.4-5.0) gm/dl Globulin (2.5-4.0) gm/dl Albumin/Globulin Ratio (0.9-2) Triglycerides (0-150) mg/dl Cholesterol (0-200) mg/dl LDL Cholesterol, Calc mg/dl VLDL Cholesterol, Calc (0-30) mg/dl HDL Cholesterol mg/dl Cholesterol/HDL Ratio (0-5) Procalcitonin (0-0.5) ng/ml TSH (0.300-4.500) uIu/ml Free T4 (0.61-1.60) ng/dl Urine Color Urine Appearance (Clear) Urine pH (4.5-7.5) Ur Specific [place] (1.000-1.030) Urine Protein (Negative) Urine Glucose (UA) (Negative) Urine Ketones (Negative) Urine Blood (Negative) Urine Nitrite (Negative) Urine Bilirubin (Negative) Urine Urobilinogen (Negative) Ur Leukocyte Esterase (Negative) Urine WBC (Auto) (0-5) /hpf Urine RBC (Auto) (0-4) /hpf U Hyaline Cast (Auto) (0-5) /lpf U Epithel Cells (Auto) (0-5) /lpf Urine Bacteria (Auto) (Negative) SARS-CoV-2, RNA, NAAT (NEGATIVE) 08/20/22 08/20/22 08/20/22 Range/Units 20:32 20:14 19:58 WBC (4.8-10.8) K/ul RBC (4.63-6.08) M/uL Hgb (14.0-18.0) g/dl Hct (40.1-51.0) % MCV (80.0-100.0) fL MCH (25.0-34.0) pg MCHC (32.0-36.0) g/dL RDW Std Deviation (36.4-46.3) fL RDW Coeff of Alesia (11.5-14.5) % Plt Count (130-400) K/uL MPV (9.4-12.4) fL Immature Gran % (Auto) % Neut % (Auto) % Lymph % (Auto) % [facility] % (Auto) % Eos % (Auto) % Baso % (Auto) % Neut # (Auto) (1.4-6.5) K/uL Lymph # (Auto) (1.2-3.4) K/uL [facility] # (Auto) (0.24-0.82) K/uL Eos # (Auto) (0-0.50) K/uL Baso # (Auto) (0-0.2) K/uL Immature Gran # (Auto) (0.00-0.02) K/uL ESR (0-20) mm/hr Sodium (136-145) mmol/L Potassium (3.5-5.1) mmol/L Chloride (98-107) mmol/L Carbon Dioxide (21-32) mmol/L Anion Gap (3-11) BUN (6-23) mg/dl Creatinine (0.6-1.4) mg/dl Est Cr Clr Drug Dosing Est GFR ( Amer) ml/min Est GFR (Non-Af Amer) ml/min BUN/Creatinine Ratio (10-20) Glucose (70-99(Fasting)) mg/dl POC Glucose 104 H (70-99) mg/dl Estimat Average Glucose mg/dl Hemoglobin A1c (4.5-5.6) % Lactate 3.4 H* (0.4-2.0) mmol/L Calcium (8.5-10.1) mg/dl Magnesium (1.7-2.4) mg/dl Total Bilirubin (0.2-1.0) mg/dl AST (13-39) U/L ALT (7-52) U/L Alkaline Phosphatase (34-104) U/L Troponin I High Sens (0-20) pg/ml C-Reactive Protein (0-0.5) mg/dl Total Protein (6.0-8.3) gm/dl Albumin (3.4-5.0) gm/dl Globulin (2.5-4.0) gm/dl Albumin/Globulin Ratio (0.9-2) Triglycerides (0-150) mg/dl Cholesterol (0-200) mg/dl LDL Cholesterol, Calc mg/dl VLDL Cholesterol, Calc (0-30) mg/dl HDL Cholesterol mg/dl Cholesterol/HDL Ratio (0-5) Procalcitonin (0-0.5) ng/ml TSH (0.300-4.500) uIu/ml Free T4 (0.61-1.60) ng/dl Urine Color Yellow Urine Appearance Clear (Clear) Urine pH 6.0 (4.5-7.5) Ur Specific [place] 1.010 (1.000-1.030) Urine Protein Trace H (Negative) Urine Glucose (UA) Negative (Negative) Urine Ketones Negative (Negative) Urine Blood Negative (Negative) Urine Nitrite Negative (Negative) Urine Bilirubin Negative (Negative) Urine Urobilinogen Negative (Negative) Ur Leukocyte Esterase Negative (Negative) Urine WBC (Auto) 0 (0-5) /hpf Urine RBC (Auto) 0-4 (0-4) /hpf U Hyaline Cast (Auto) 0 (0-5) /lpf U Epithel Cells (Auto) 0-5 (0-5) /lpf Urine Bacteria (Auto) Negative (Negative) SARS-CoV-2, RNA, NAAT (NEGATIVE) 08/20/22 08/20/22 08/20/22 Range/Units 17:30 16:28 16:28 WBC (4.8-10.8) K/ul RBC (4.63-6.08) M/uL Hgb (14.0-18.0) g/dl Hct (40.1-51.0) % MCV (80.0-100.0) fL MCH (25.0-34.0) pg MCHC (32.0-36.0) g/dL RDW Std Deviation (36.4-46.3) fL RDW Coeff of Alesia (11.5-14.5) % Plt Count (130-400) K/uL MPV (9.4-12.4) fL Immature Gran % (Auto) % Neut % (Auto) % Lymph % (Auto) % [facility] % (Auto) % Eos % (Auto) % Baso % (Auto) % Neut # (Auto) (1.4-6.5) K/uL Lymph # (Auto) (1.2-3.4) K/uL [facility] # (Auto) (0.24-0.82) K/uL Eos # (Auto) (0-0.50) K/uL Baso # (Auto) (0-0.2) K/uL Immature Gran # (Auto) (0.00-0.02) K/uL ESR (0-20) mm/hr Sodium (136-145) mmol/L Potassium (3.5-5.1) mmol/L Chloride (98-107) mmol/L Carbon Dioxide (21-32) mmol/L Anion Gap (3-11) BUN (6-23) mg/dl Creatinine (0.6-1.4) mg/dl Est Cr Clr Drug Dosing Est GFR ( Amer) ml/min Est GFR (Non-Af Amer) ml/min BUN/Creatinine Ratio (10-20) Glucose (70-99(Fasting)) mg/dl POC Glucose 93 (70-99) mg/dl Estimat Average Glucose mg/dl Hemoglobin A1c (4.5-5.6) % Lactate 3.8 H* (0.4-2.0) mmol/L Calcium (8.5-10.1) mg/dl Magnesium (1.7-2.4) mg/dl Total Bilirubin (0.2-1.0) mg/dl AST (13-39) U/L ALT (7-52) U/L Alkaline Phosphatase (34-104) U/L Troponin I High Sens 5.9 (0-20) pg/ml C-Reactive Protein (0-0.5) mg/dl Total Protein (6.0-8.3) gm/dl Albumin (3.4-5.0) gm/dl Globulin (2.5-4.0) gm/dl Albumin/Globulin Ratio (0.9-2) Triglycerides (0-150) mg/dl Cholesterol (0-200) mg/dl LDL Cholesterol, Calc mg/dl VLDL Cholesterol, Calc (0-30) mg/dl HDL Cholesterol mg/dl Cholesterol/HDL Ratio (0-5) Procalcitonin (0-0.5) ng/ml TSH (0.300-4.500) uIu/ml Free T4 (0.61-1.60) ng/dl Urine Color Urine Appearance (Clear) Urine pH (4.5-7.5) Ur Specific [place] (1.000-1.030) Urine Protein (Negative) Urine Glucose (UA) (Negative) Urine Ketones (Negative) Urine Blood (Negative) Urine Nitrite (Negative) Urine Bilirubin (Negative) Urine Urobilinogen (Negative) Ur Leukocyte Esterase (Negative) Urine WBC (Auto) (0-5) /hpf Urine RBC (Auto) (0-4) /hpf U Hyaline Cast (Auto) (0-5) /lpf U Epithel Cells (Auto) (0-5) /lpf Urine Bacteria (Auto) (Negative) SARS-CoV-2, RNA, NAAT (NEGATIVE) 08/20/22 08/20/22 08/20/22 Range/Units 14:36 14:10 14:10 WBC 7.79 (4.8-10.8) K/ul RBC 3.90 L (4.63-6.08) M/uL Hgb 12.6 L (14.0-18.0) g/dl Hct 37.1 L (40.1-51.0) % MCV 95.1 (80.0-100.0) fL MCH 32.3 (25.0-34.0) pg MCHC 34.0 (32.0-36.0) g/dL RDW Std Deviation 45.6 (36.4-46.3) fL RDW Coeff of Alesia 13.0 (11.5-14.5) % Plt Count 188 (130-400) K/uL MPV 9.1 L (9.4-12.4) fL Immature Gran % (Auto) 0.5 % Neut % (Auto) 63.8 % Lymph % (Auto) 16.3 % [facility] % (Auto) 10.8 % Eos % (Auto) 7.4 % Baso % (Auto) 1.2 % Neut # (Auto) 4.97 (1.4-6.5) K/uL Lymph # (Auto) 1.27 (1.2-3.4) K/uL [facility] # (Auto) 0.84 H (0.24-0.82) K/uL Eos # (Auto) 0.58 H (0-0.50) K/uL Baso # (Auto) 0.09 (0-0.2) K/uL Immature Gran # (Auto) 0.04 H (0.00-0.02) K/uL ESR (0-20) mm/hr Sodium (136-145) mmol/L Potassium (3.5-5.1) mmol/L Chloride (98-107) mmol/L Carbon Dioxide (21-32) mmol/L Anion Gap (3-11) BUN (6-23) mg/dl Creatinine (0.6-1.4) mg/dl Est Cr Clr Drug Dosing Est GFR ( Amer) ml/min Est GFR (Non-Af Amer) ml/min BUN/Creatinine Ratio (10-20) Glucose (70-99(Fasting)) mg/dl POC Glucose (70-99) mg/dl Estimat Average Glucose mg/dl Hemoglobin A1c (4.5-5.6) % Lactate (0.4-2.0) mmol/L Calcium (8.5-10.1) mg/dl Magnesium (1.7-2.4) mg/dl Total Bilirubin (0.2-1.0) mg/dl AST (13-39) U/L ALT (7-52) U/L Alkaline Phosphatase (34-104) U/L Troponin I High Sens (0-20) pg/ml C-Reactive Protein (0-0.5) mg/dl Total Protein (6.0-8.3) gm/dl Albumin (3.4-5.0) gm/dl Globulin (2.5-4.0) gm/dl Albumin/Globulin Ratio (0.9-2) Triglycerides (0-150) mg/dl Cholesterol (0-200) mg/dl LDL Cholesterol, Calc mg/dl VLDL Cholesterol, Calc (0-30) mg/dl HDL Cholesterol mg/dl Cholesterol/HDL Ratio (0-5) Procalcitonin (0-0.5) ng/ml TSH 7.334 H (0.300-4.500) uIu/ml Free T4 0.73 (0.61-1.60) ng/dl Urine Color Urine Appearance (Clear) Urine pH (4.5-7.5) Ur Specific [place] (1.000-1.030) Urine Protein (Negative) Urine Glucose (UA) (Negative) Urine Ketones (Negative) Urine Blood (Negative) Urine Nitrite (Negative) Urine Bilirubin (Negative) Urine Urobilinogen (Negative) Ur Leukocyte Esterase (Negative) Urine WBC (Auto) (0-5) /hpf Urine RBC (Auto) (0-4) /hpf U Hyaline Cast (Auto) (0-5) /lpf U Epithel Cells (Auto) (0-5) /lpf Urine Bacteria (Auto) (Negative) SARS-CoV-2, RNA, NAAT NEGATIVE (NEGATIVE) 08/20/22 Range/Units 14:10 WBC (4.8-10.8) K/ul RBC (4.63-6.08) M/uL Hgb (14.0-18.0) g/dl Hct (40.1-51.0) % MCV (80.0-100.0) fL MCH (25.0-34.0) pg MCHC (32.0-36.0) g/dL RDW Std Deviation (36.4-46.3) fL RDW Coeff of Alesia (11.5-14.5) % Plt Count (130-400) K/uL MPV (9.4-12.4) fL Immature Gran % (Auto) % Neut % (Auto) % Lymph % (Auto) % [facility] % (Auto) % Eos % (Auto) % Baso % (Auto) % Neut # (Auto) (1.4-6.5) K/uL Lymph # (Auto) (1.2-3.4) K/uL [facility] # (Auto) (0.24-0.82) K/uL Eos # (Auto) (0-0.50) K/uL Baso # (Auto) (0-0.2) K/uL Immature Gran # (Auto) (0.00-0.02) K/uL ESR (0-20) mm/hr Sodium 135 L (136-145) mmol/L Potassium 4.5 (3.5-5.1) mmol/L Chloride 105 (98-107) mmol/L Carbon Dioxide 21 (21-32) mmol/L Anion Gap 9 (3-11) BUN 14 (6-23) mg/dl Creatinine 1.10 (0.6-1.4) mg/dl Est Cr Clr Drug Dosing Not Reportable Est GFR ( Amer) 76.2 ml/min Est GFR (Non-Af Amer) 65.8 ml/min BUN/Creatinine Ratio 12.7 (10-20) Glucose 160 H (70-99(Fasting)) mg/dl POC Glucose (70-99) mg/dl Estimat Average Glucose mg/dl Hemoglobin A1c (4.5-5.6) % Lactate (0.4-2.0) mmol/L Calcium 8.7 (8.5-10.1) mg/dl Magnesium 1.4 L (1.7-2.4) mg/dl Total Bilirubin 0.5 (0.2-1.0) mg/dl AST 22 (13-39) U/L ALT 21 (7-52) U/L Alkaline Phosphatase 70 (34-104) U/L Troponin I High Sens 6.2 (0-20) pg/ml C-Reactive Protein (0-0.5) mg/dl Total Protein 6.4 (6.0-8.3) gm/dl Albumin 3.7 (3.4-5.0) gm/dl Globulin 2.7 (2.5-4.0) gm/dl Albumin/Globulin Ratio 1.4 (0.9-2) Triglycerides (0-150) mg/dl Cholesterol (0-200) mg/dl LDL Cholesterol, Calc mg/dl VLDL Cholesterol, Calc (0-30) mg/dl HDL Cholesterol mg/dl Cholesterol/HDL Ratio (0-5) Procalcitonin (0-0.5) ng/ml TSH (0.300-4.500) uIu/ml Free T4 (0.61-1.60) ng/dl Urine Color Urine Appearance (Clear) Urine pH (4.5-7.5) Ur Specific [place] (1.000-1.030) Urine Protein (Negative) Urine Glucose (UA) (Negative) Urine Ketones (Negative) Urine Blood (Negative) Urine Nitrite (Negative) Urine Bilirubin (Negative) Urine Urobilinogen (Negative) Ur Leukocyte Esterase (Negative) Urine WBC (Auto) (0-5) /hpf Urine RBC (Auto) (0-4) /hpf U Hyaline Cast (Auto) (0-5) /lpf U Epithel Cells (Auto) (0-5) /lpf Urine Bacteria (Auto) (Negative) SARS-CoV-2, RNA, NAAT (NEGATIVE) Medications Administered Current Inpatient Medications Acetaminophen (Acetaminophen 325 Mg Tab) 650 mg PO Q4H PRN PRN Reason: Pain or Fever Stop: 09/19/22 14:50 Hydrocodone Bitart/Acetaminophen (Hydrocodone/Acetamophen 5/325mg Tab) 1 tab PO Q6 PRN PRN Reason: Pain, Moderate Stop: 09/03/22 16:32 Al Hydrox/Mg Hydrox/Simethicone (Aluminum/Magnesium Susp 30 Ml Udc) 15 ml PO Q4H PRN PRN Reason: Dyspepsia Stop: 09/19/22 14:50 Albuterol (Albuterol Hfa 8 Gm Inhaler) 2 puffs INH Q6 PRN PRN Reason: SOB/Wheezing,cough Stop: 09/19/22 16:32 Aspirin (Aspirin 81 Mg Ectab) 81 mg PO QAM [facility] Stop: 09/20/22 08:59 Atorvastatin Calcium (Atorvastatin 40 Mg Tab) 80 mg PO QAM [facility] Stop: 09/20/22 08:59 Cyanocobalamin (Cyanocobalamin (B-12) 500 Mcg Tablet) 1,000 mcg PO DAILY [facility] Stop: 09/20/22 08:59 Dextrose (Dextrose 50% 50 Ml Syringe) 25 - 50 ml IV UD PRN; Protocol PRN Reason: Hypoglycemia Protocol Stop: 09/19/22 16:08 Diclofenac Sodium (Diclofenac Sod 1% Gel 100 Gm Tube) 4 gm EXT Q6 PRN; Protocol PRN Reason: pain Stop: 09/19/22 16:32 Ferrous Sulfate (Ferrous Sulfate 325 Mg Tab) 325 mg PO Q2D@0900 [facility] Stop: 09/20/22 08:59 Glucagon (Glucagon For Inj 1 Mg Vial) 1 mg SQ UD PRN; Protocol PRN Reason: Hypoglycemia Protocol Stop: 09/19/22 16:08 Glucose (Glucose 40% Gel 15 Gm Tube) 15 - 30 gm PO UD PRN; Protocol PRN Reason: Hypoglycemia Protocol Stop: 09/19/22 16:08 Glucose (Glucose 10 Tab/Tube) 4 - 8 tab PO UD PRN; Protocol PRN Reason: Hypoglycemia Treatment Stop: 09/19/22 16:08 Heparin Sodium (Porcine) (Heparin Sod 5,000 Unit/0.5 Ml Vial) 5,000 units SQ Q12 [facility] Stop: 09/19/22 20:59 Last Admin: 08/20/22 21:22 Dose: 5,000 units Insulin Aspart (Insulin Aspart Per Unit) 0 units SC ACHS [facility] Stop: 09/19/22 16:29 Last Admin: 08/20/22 21:18 Dose: Not Given Isosorbide Mononitrate (Isosorbide [facility] Extended Rel 30 Mg Tabcr) 30 mg PO QAM [facility] Stop: 09/20/22 08:59 Lorazepam (Lorazepam 1 Mg Tab) 1 mg PO BID PRN PRN Reason: anxiety/insomnia Stop: 09/19/22 16:32 Last Admin: 08/20/22 23:39 Dose: 1 mg Magnesium Hydroxide (Magnesium Hydroxide Susp 30 Ml Udc) 30 ml PO Q12H PRN PRN Reason: Constipation Stop: 09/19/22 14:50 Magnesium Oxide (Magnesium Oxide 400 Mg Tab) 400 mg PO AMHS [facility] Stop: 09/19/22 20:59 Last Admin: 08/20/22 21:21 Dose: 400 mg Miscellaneous (Carbohydrates For Hypoglycemia ) 15 - 30 gm PO UD PRN PRN Reason: Hypoglycemia Protocol Stop: 09/19/22 16:08 Miscellaneous Information (Pharmacy Glycemic Mgmt Consult) 1 each N/A UD PRN PRN Reason: Consult Stop: 09/19/22 16:08 Ondansetron HCl (Ondansetron Inj 2 Mg/Ml 2 Ml Vial) 4 mg IV Q6H PRN PRN Reason: Nausea Stop: 09/19/22 14:50 Pantoprazole Sodium (Pantoprazole 40 Mg Tab) 40 mg PO DAILY [facility] Stop: 09/20/22 08:59 Polyethylene Glycol (Polyethylene (Miralax) 17 Gm Pack) 17 gm PO DAILY PRN PRN Reason: Constipation Stop: 09/19/22 14:50 Sacubitril/Valsartan (Valsartan/Sacubitril 26/24mg Tab) 1 tab PO BID [facility] Stop: 09/20/22 08:59 Sertraline HCl (Sertraline Hcl 100 Mg Tablet) 100 mg PO DAILY [facility] Stop: 09/20/22 08:59 Triamcinolone Acetonide (Triamcinolone Acet 0.1% Cr 15 Gm Tube) 1 appln TOP BID PRN PRN Reason: STOMACH RASH Stop: 09/19/22 16:32 Umeclidinium [place] (Umeclidinium [place] 62.5mcg/Blister 7 Puffs/Inhaler) 1 puffs INH DAILY [facility] Stop: 09/20/22 08:59
[2022-08-21] MEDS: FERROUS SULFATE 325 MG TAB PO SCH (08:42)
[2022-08-21] MEDS: CYANOCOBALAMIN (B-12) 500 MCG TABLET PO SCH (08:42)
[2022-08-21] MEDS: PANTOprazole 40 MG TAB PO SCH (08:42)
[2022-08-21] MEDS: ASPIRIN 81 MG ECTAB PO SCH (08:42)
[2022-08-21] MEDS: MAGNESIUM OXIDE 400 MG TAB PO SCH ×2 (08:43→21:22)
[2022-08-21] MEDS: SERTRALINE HCL 100 MG TABLET PO SCH (08:43)
[2022-08-21] MEDS: ATORVASTATIN 40 MG TAB PO SCH (08:43)
[2022-08-21] MEDS: HEPARIN SOD 5,000 UNIT/0.5 ML VIAL SQ SCH ×2 (08:44→21:21)
[2022-08-21] MEDS: UMECLIDINIUM BROMIDE 62.5MCG/BLISTER 7 PUFFS/INHALER INH SCH (08:45)
[2022-08-21] MEDS: ISOSORBIDE MONO EXTENDED REL 30 MG TABCR PO SCH (09:23)
[2022-08-21] MEDS: VALSARTAN/SACUBITRIL 26/24MG TAB PO SCH ×2 (09:23→21:22)
[2022-08-21] MEDS: INSULIN ASPART PER UNIT SC SCH ×4 (09:27→21:26)
[2022-08-21] MEDS ORDERED: LANTUS PER UNIT CHARGE SQ ONE (11:45)
--- NOTE | 2022-08-21 12:15 | Cardiology Progress Note ---
Date of Service August 21, 2022 Assessment & Plan (1) Syncope and collapse: (2) Acute hypotension: (3) HLD (hyperlipidemia): (4) Chronic anemia: (5) Chronic diastolic heart failure: (6) HTN (hypertension): (7) Pulmonary fibrosis: (8) Ex-smoker: (9) Restrictive lung disease: (10) COPD with emphysema: (11) H/O intracranial hemorrhage: (12) DM type 2 (diabetes mellitus, type 2): (13) CAD (coronary artery disease): (14) H/O subarachnoid hemorrhage: Plan The patient had no additional bradycardic events or heart pauses through the night on telemetry. He was hypertensive this morning and I restarted his Entresto at a lower dose as well as his Imdur. We will continue to hold the carvedilol. Since the patient was admitted, we were able to download the data from his monitor and during his syncopal event at the clinic he had a 7-second pause. So the plan is for him to proceed with an elective pacemaker on Tuesday provided he stays clinically stable. Admission and Anticipated Discharge Date Admission Date: August 20, 2022 Subjective The patient had an uneventful night. Review of Systems Review of Systems: Review of Systems: See HPI for pertinent positives. All other 10 point review of systems are negative. Physical Exam Physical Exam: General: no acute distress and stated age Head: normocephalic, no masses, lesions, tenderness or abnormalities Eyes: conjunctiva are pink and non-injected, sclera clear Neck: supple, no adenopathy, no bruits, normal jugular venous pulse, no hepatojugular reflux Chest: normal shape and normal respiratory effort Lungs: clear to auscultation and percussion Cardiac Exam: - regular rate & rhythm, no murmurs gallops or rubs - normal S1, normal S2 Pulses: 2(+) throughout Abdomen: abdomen soft, non-tender, no abnormal masses and no hepatosplenomegaly Musculoskeletal: no gait disturbance, no joint inflammation, no deforming arthritis Extremities: no edema and no cyanosis Neuro: grossly normal exam Results & Data ([facility]) Vital Signs (Past 12 Hours) Vital Signs Temp Pulse Pulse Resp BP Pulse Ox O2 Del Method 08/21/22 08:13 58 L 08/21/22 07:31 36.7 C 61 18 173/92 H 93 Room Air 08/21/22 03:15 36.6 C 66 18 182/92 H 96 Room Air 08/21/22 01:35 67 Laboratory Results Laboratory Results - last 24 hr 08/20/22 08/20/22 08/20/22 14:10 14:10 14:10 WBC 7.79 RBC 3.90 L Hgb 12.6 L Hct 37.1 L MCV 95.1 MCH 32.3 MCHC 34.0 RDW Std Deviation 45.6 RDW Coeff of Alesia 13.0 Plt Count 188 MPV 9.1 L Immature Gran % (Auto) 0.5 Neut % (Auto) 63.8 Lymph % (Auto) 16.3 [place] % (Auto) 10.8 Eos % (Auto) 7.4 Baso % (Auto) 1.2 Neut # (Auto) 4.97 Lymph # (Auto) 1.27 [place] # (Auto) 0.84 H Eos # (Auto) 0.58 H Baso # (Auto) 0.09 Immature Gran # (Auto) 0.04 H ESR Sodium 135 L Potassium 4.5 Chloride 105 Carbon Dioxide 21 Anion Gap 9 BUN 14 Creatinine 1.10 Est Cr Clr Drug Dosing Not Reportable Est GFR ( Amer) 76.2 Est GFR (Non-Af Amer) 65.8 BUN/Creatinine Ratio 12.7 Glucose 160 H POC Glucose Estimat Average Glucose Hemoglobin A1c Lactate Calcium 8.7 Magnesium 1.4 L Total Bilirubin 0.5 AST 22 ALT 21 Alkaline Phosphatase 70 Troponin I High Sens 6.2 C-Reactive Protein Total Protein 6.4 Albumin 3.7 Globulin 2.7 Albumin/Globulin Ratio 1.4 Triglycerides Cholesterol LDL Cholesterol, Calc VLDL Cholesterol, Calc HDL Cholesterol Cholesterol/HDL Ratio Procalcitonin TSH 7.334 H Free T4 0.73 Urine Color Urine Appearance Urine pH Ur Specific [place] Urine Protein Urine Glucose (UA) Urine Ketones Urine Blood Urine Nitrite Urine Bilirubin Urine Urobilinogen Ur Leukocyte Esterase Urine WBC (Auto) Urine RBC (Auto) U Hyaline Cast (Auto) U Epithel Cells (Auto) Urine Bacteria (Auto) SARS-CoV-2, RNA, NAAT 08/20/22 08/20/22 08/20/22 14:36 16:28 16:28 WBC RBC Hgb Hct MCV MCH MCHC RDW Std Deviation RDW Coeff of [place]lesia Plt Count MPV Immature Gran % (Auto) Neut % (Auto) Lymph % (Auto) [place] % (Auto) Eos % (Auto) Baso % (Auto) Neut # (Auto) Lymph # (Auto) [place] # (Auto) Eos # (Auto) Baso # (Auto) Immature Gran # (Auto) ESR Sodium Potassium Chloride Carbon Dioxide Anion Gap BUN Creatinine Est Cr Clr Drug Dosing Est GFR ( Amer) Est GFR (Non-Af Amer) BUN/Creatinine Ratio Glucose POC Glucose Estimat Average Glucose Hemoglobin A1c Lactate 3.8 H* Calcium Magnesium Total Bilirubin AST ALT Alkaline Phosphatase Troponin I High Sens 5.9 C-Reactive Protein Total Protein Albumin Globulin Albumin/Globulin Ratio Triglycerides Cholesterol LDL Cholesterol, Calc VLDL Cholesterol, Calc HDL Cholesterol Cholesterol/HDL Ratio Procalcitonin TSH Free T4 Urine Color Urine Appearance Urine pH Ur Specific [place] Urine Protein Urine Glucose (UA) Urine Ketones Urine Blood Urine Nitrite Urine Bilirubin Urine Urobilinogen Ur Leukocyte Esterase Urine WBC (Auto) Urine RBC (Auto) U Hyaline Cast (Auto) U Epithel Cells (Auto) Urine Bacteria (Auto) SARS-CoV-2, RNA, NAAT NEGATIVE 08/20/22 08/20/22 08/20/22 17:30 19:58 20:14 WBC RBC Hgb Hct MCV MCH MCHC RDW Std Deviation RDW Coeff of Alesia Plt Count MPV Immature Gran % (Auto) Neut % (Auto) Lymph % (Auto) [place] % (Auto) Eos % (Auto) Baso % (Auto) Neut # (Auto) Lymph # (Auto) [place] # (Auto) Eos # (Auto) Baso # (Auto) Immature Gran # (Auto) ESR Sodium Potassium Chloride Carbon Dioxide Anion Gap BUN Creatinine Est Cr Clr Drug Dosing Est GFR ( Amer) Est GFR (Non-Af Amer) BUN/Creatinine Ratio Glucose POC Glucose 93 Estimat Average Glucose Hemoglobin A1c Lactate 3.4 H* Calcium Magnesium Total Bilirubin AST ALT Alkaline Phosphatase Troponin I High Sens C-Reactive Protein Total Protein Albumin Globulin Albumin/Globulin Ratio Triglycerides Cholesterol LDL Cholesterol, Calc VLDL Cholesterol, Calc HDL Cholesterol Cholesterol/HDL Ratio Procalcitonin TSH Free T4 Urine Color Yellow Urine Appearance Clear Urine pH 6.0 Ur Specific [place] 1.010 Urine Protein Trace H Urine Glucose (UA) Negative Urine Ketones Negative Urine Blood Negative Urine Nitrite Negative Urine Bilirubin Negative Urine Urobilinogen Negative Ur Leukocyte Esterase Negative Urine WBC (Auto) 0 Urine RBC (Auto) 0-4 U Hyaline Cast (Auto) 0 U Epithel Cells (Auto) 0-5 Urine Bacteria (Auto) Negative SARS-CoV-2, RNA, NAAT 08/20/22 08/21/22 08/21/22 20:32 06:38 06:38 WBC 7.37 RBC 4.02 L Hgb 12.7 L Hct 38.3 L MCV 95.3 MCH 31.6 MCHC 33.2 RDW Std Deviation 45.3 RDW Coeff of Alesia 13.0 Plt Count 162 MPV 9.0 L Immature Gran % (Auto) Neut % (Auto) Lymph % (Auto) [place] % (Auto) Eos % (Auto) Baso % (Auto) Neut # (Auto) Lymph # (Auto) [place] # (Auto) Eos # (Auto) Baso # (Auto) Immature Gran # (Auto) ESR Sodium Potassium Chloride Carbon Dioxide Anion Gap BUN Creatinine Est Cr Clr Drug Dosing Est GFR ( Amer) Est GFR (Non-Af Amer) BUN/Creatinine Ratio Glucose POC Glucose 104 H Estimat Average Glucose 163 Hemoglobin A1c 7.3 H Lactate Calcium Magnesium Total Bilirubin AST ALT Alkaline Phosphatase Troponin I High Sens C-Reactive Protein Total Protein Albumin Globulin Albumin/Globulin Ratio Triglycerides Cholesterol LDL Cholesterol, Calc VLDL Cholesterol, Calc HDL Cholesterol Cholesterol/HDL Ratio Procalcitonin TSH Free T4 Urine Color Urine Appearance Urine pH Ur Specific [place] Urine Protein Urine Glucose (UA) Urine Ketones Urine Blood Urine Nitrite Urine Bilirubin Urine Urobilinogen Ur Leukocyte Esterase Urine WBC (Auto) Urine RBC (Auto) U Hyaline Cast (Auto) U Epithel Cells (Auto) Urine Bacteria (Auto) SARS-CoV-2, RNA, NAAT 08/21/22 08/21/22 08/21/22 06:38 06:38 06:38 WBC RBC Hgb Hct MCV MCH MCHC RDW Std Deviation RDW Coeff of Alesia Plt Count MPV Immature Gran % (Auto) Neut % (Auto) Lymph % (Auto) [place] % (Auto) Eos % (Auto) Baso % (Auto) Neut # (Auto) Lymph # (Auto) [place] # (Auto) Eos # (Auto) Baso # (Auto) Immature Gran # (Auto) ESR 29 H Sodium 136 Potassium 4.3 Chloride 105 Carbon Dioxide 25 Anion Gap 6 BUN 15 Creatinine 0.98 Est Cr Clr Drug Dosing 74.1 Est GFR ( Amer) 87.7 Est GFR (Non-Af Amer) 75.6 BUN/Creatinine Ratio 15.3 Glucose 101 H POC Glucose Estimat Average Glucose Hemoglobin A1c Lactate Calcium 9.0 Magnesium Total Bilirubin AST ALT Alkaline Phosphatase Troponin I High Sens C-Reactive Protein 0.56 H Total Protein Albumin Globulin Albumin/Globulin Ratio Triglycerides 270 H Cholesterol 95 LDL Cholesterol, Calc 16 VLDL Cholesterol, Calc 54 H HDL Cholesterol 25 Cholesterol/HDL Ratio 3.8 Procalcitonin < 0.05 TSH Free T4 Urine Color Urine Appearance Urine pH Ur Specific [place] Urine Protein Urine Glucose (UA) Urine Ketones Urine Blood Urine Nitrite Urine Bilirubin Urine Urobilinogen Ur Leukocyte Esterase Urine WBC (Auto) Urine RBC (Auto) U Hyaline Cast (Auto) U Epithel Cells (Auto) Urine Bacteria (Auto) SARS-CoV-2, RNA, NAAT 08/21/22 08/21/22 08/21/22 06:38 07:41 11:24 WBC RBC Hgb Hct MCV MCH MCHC RDW Std Deviation RDW Coeff of Alesia Plt Count MPV Immature Gran % (Auto) Neut % (Auto) Lymph % (Auto) [place] % (Auto) Eos % (Auto) Baso % (Auto) Neut # (Auto) Lymph # (Auto) [place] # (Auto) Eos # (Auto) Baso # (Auto) Immature Gran # (Auto) ESR Sodium Potassium Chloride Carbon Dioxide Anion Gap BUN Creatinine Est Cr Clr Drug Dosing Est GFR ( Amer) Est GFR (Non-Af Amer) BUN/Creatinine Ratio Glucose POC Glucose 104 H 202 H Estimat Average Glucose Hemoglobin A1c Lactate Calcium Magnesium 1.7 Total Bilirubin AST ALT Alkaline Phosphatase Troponin I High Sens C-Reactive Protein Total Protein Albumin Globulin Albumin/Globulin Ratio Triglycerides Cholesterol LDL Cholesterol, Calc VLDL Cholesterol, Calc HDL Cholesterol Cholesterol/HDL Ratio Procalcitonin TSH Free T4 Urine Color Urine Appearance Urine pH Ur Specific [place] Urine Protein Urine Glucose (UA) Urine Ketones Urine Blood Urine Nitrite Urine Bilirubin Urine Urobilinogen Ur Leukocyte Esterase Urine WBC (Auto) Urine RBC (Auto) U Hyaline Cast (Auto) U Epithel Cells (Auto) Urine Bacteria (Auto) SARS-CoV-2, RNA, NAAT Medications Administered Current Inpatient Medications Acetaminophen (Acetaminophen 325 Mg Tab) 650 mg PO Q4H PRN PRN Reason: Pain or Fever Stop: 09/19/22 14:50 Hydrocodone Bitart/Acetaminophen (Hydrocodone/Acetamophen 5/325mg Tab) 1 tab PO Q6 PRN PRN Reason: Pain, Moderate Stop: 09/03/22 16:32 Al Hydrox/Mg Hydrox/Simethicone (Aluminum/Magnesium Susp 30 Ml Udc) 15 ml PO Q4H PRN PRN Reason: Dyspepsia Stop: 09/19/22 14:50 Albuterol (Albuterol Hfa 8 Gm Inhaler) 2 puffs INH Q6 PRN PRN Reason: SOB/Wheezing,cough Stop: 09/19/22 16:32 Aspirin (Aspirin 81 Mg Ectab) 81 mg PO QAM [facility] Stop: 09/20/22 08:59 Last Admin: 08/21/22 08:42 Dose: 81 mg Atorvastatin Calcium (Atorvastatin 40 Mg Tab) [facility] [place] [place] Stop: 09/20/22 08:59 Last Admin: 08/21/22 08:43 Dose: 80 mg Cyanocobalamin (Cyanocobalamin (B-12) 500 Mcg Tablet) 1,000 mcg PO DAILY [facility] Stop: 09/20/22 08:59 Last Admin: 08/21/22 08:42 Dose: 1,000 mcg Dextrose (Dextrose 50% 50 Ml Syringe) 25 - 50 ml IV UD PRN; Protocol PRN Reason: Hypoglycemia Protocol Stop: 09/19/22 16:08 Diclofenac Sodium (Diclofenac Sod 1% Gel 100 Gm Tube) 4 gm EXT Q6 PRN; Protocol PRN Reason: pain Stop: 09/19/22 16:32 Ferrous Sulfate (Ferrous Sulfate 325 Mg Tab) 325 mg PO Q2D@0900 [facility] Stop: 09/20/22 08:59 Last Admin: 08/21/22 08:42 Dose: 325 mg Glucagon (Glucagon For Inj 1 Mg Vial) 1 mg SQ UD PRN; Protocol PRN Reason: Hypoglycemia Protocol Stop: 09/19/22 16:08 Glucose (Glucose 40% Gel 15 Gm Tube) 15 - 30 gm PO UD PRN; Protocol PRN Reason: Hypoglycemia Protocol Stop: 09/19/22 16:08 Glucose (Glucose 10 Tab/Tube) 4 - 8 tab PO UD PRN; Protocol PRN Reason: Hypoglycemia Treatment Stop: 09/19/22 16:08 Heparin Sodium (Porcine) (Heparin Sod 5,000 Unit/0.5 Ml Vial) 5,000 units SQ Q12 [facility] Stop: 09/19/22 20:59 Last Admin: 08/21/22 08:44 Dose: 5,000 units Insulin Aspart (Insulin Aspart Per Unit) 0 units SC ACHS [facility] Stop: 09/19/22 16:29 Last Admin: 08/21/22 09:27 Dose: 4 units Isosorbide Mononitrate (Isosorbide [place] Extended Rel 30 Mg Tabcr) 30 mg PO QAM [facility] Stop: 09/20/22 08:59 Last Admin: 08/21/22 09:23 Dose: 30 mg Lorazepam (Lorazepam 1 Mg Tab) 1 mg PO BID PRN PRN Reason: anxiety/insomnia Stop: 09/19/22 16:32 Last Admin: 08/20/22 23:39 Dose: 1 mg Magnesium Hydroxide (Magnesium Hydroxide Susp 30 Ml Udc) 30 ml PO Q12H PRN PRN Reason: Constipation Stop: 09/19/22 14:50 Magnesium Oxide (Magnesium Oxide 400 Mg Tab) 400 mg PO AMHS [facility] Stop: 09/19/22 20:59 Last Admin: 08/21/22 08:43 Dose: 400 mg Miscellaneous (Carbohydrates For Hypoglycemia ) 15 - 30 gm PO UD PRN PRN Reason: Hypoglycemia Protocol Stop: 09/19/22 16:08 Miscellaneous Information (Pharmacy Glycemic Mgmt Consult) 1 each N/A UD PRN PRN Reason: Consult Stop: 09/19/22 16:08 Ondansetron HCl (Ondansetron Inj 2 Mg/Ml 2 Ml Vial) 4 mg IV Q6H PRN PRN Reason: Nausea Stop: 09/19/22 14:50 Pantoprazole Sodium (Pantoprazole 40 Mg Tab) 40 mg PO DAILY [facility] Stop: 09/20/22 08:59 Last Admin: 08/21/22 08:42 Dose: 40 mg Polyethylene Glycol (Polyethylene (Miralax) 17 Gm Pack) 17 gm PO DAILY PRN PRN Reason: Constipation Stop: 09/19/22 14:50 Sacubitril/Valsartan (Valsartan/Sacubitril 26/24mg Tab) 1 tab PO BID [facility] Stop: 09/20/22 08:59 Last Admin: 08/21/22 09:23 Dose: 1 tab Sertraline HCl (Sertraline Hcl 100 Mg Tablet) 100 mg PO DAILY [facility] Stop: 09/20/22 08:59 Last Admin: 08/21/22 08:43 Dose: 100 mg Triamcinolone Acetonide (Triamcinolone Acet 0.1% Cr 15 Gm Tube) 1 appln TOP BID PRN PRN Reason: STOMACH RASH Stop: 09/19/22 16:32 Umeclidinium Huntley (Umeclidinium [place] 62.5mcg/Blister 7 Puffs/Inhaler) 1 puffs INH DAILY [facility] Stop: 09/20/22 08:59 Last Admin: 08/21/22 08:45 Dose: 1 puffs
--- NOTE | 2022-08-21 13:04 | XRay Report ---
XR chest 1V portable CLINICAL HISTORY: syncope TECHNIQUE: Single frontal radiograph of the chest was obtained. Comparison: Comparison is made to chest radiograph 08/20/2022 FINDINGS: No lines and tubes are seen. Cardiomegaly is noted. The lungs are clear. No evidence of pleural effus ion or pneumothorax. IMPRESSION: No acute chest disease. ACT 112: Negative or not required by law. Electronically signed by: Luther Marcial M.D. 08/21/2022 1:02 PM
--- NOTE | 2022-08-21 13:13 | Pharmacy Report ---
Pharmacy Glycemic Short Note 2 - Date of Service August 21, 2022 - Glycemic Short BSG Results (Last 24 hours): 08/20/22 08/20/22 08/20/22 14:10 17:30 20:32 Glucose 160 H POC Glucose 93 104 H 08/21/22 08/21/22 08/21/22 06:38 07:41 11:24 Glucose 101 H POC Glucose 104 H 202 H OUTPATIENT ANTIDIABETIC REGIMEN: * Lantus 50 units SC HS * Metformin 1 g PO BIDM HbA1c: 6.7% (05/28/22) ASSESSMENT: * DM is a 72 year old male who presented to ED via EMS yesterday afternoon following recurrent syncopal episode with collapse at cardiology clinic * Second witnessed episode of syncope within past 2 weeks * Patient did not require any insulin yesterday, BSGs ranging 93-160 mg/dL yesterday * Originally NPO after midnight, now ordered a diet (BSGs trending up 104 -> 202 mg/dL) * Plan is for elective pacemaker placement on Tuesday (will monitor for changes in diet orders) PLAN FOR INPATIENT GLYCEMIC CONTROL: * Hold outpatient oral diabetes medications * Basal insulin * Lantus 15 units SC x 1 this morning * Lantus scale to provide 0-15 units SC HS x 1 * Reassess in AM * Bolus insulin * NovoLog per scale ACHS or Q6hrs while NPO * Goal Range: Low 110 mg/dL - High 140 mg/dL * Correction Factor: 25 mg/dL/unit * Nutritional / Prandial insulin per carb ratio of 1 unit per 7 grams CHO consumed
[2022-08-21] MEDS ORDERED: LANTUS PER UNIT CHARGE SC SCH (21:00)
[2022-08-21] MEDS: LORazepam 1 MG TAB PO PRN (23:18)
[2022-08-22] MEDS ORDERED: hydrALAZINE HCL 20 MG/ML VIAL IV STA (04:13)
[2022-08-22 06:29] LABS: Hematocrit (blood only) 38.1 % (40.1-51.0); Hemoglobin 13.1 g/dl (14.0-18.0); Mean Corpuscular Hemoglobin 32.1 pg (25.0-34.0); Mean Corpuscular Hgb Conc 34.4 g/dL (32.0-36.0); Mean Corpuscular Volume 93.4 fL (80.0-100.0); Mean Platelet Volume 9.3 fL (9.4-12.4); Platelet Count 191 K/uL (130-400); RDW Coefficient of Variation 12.9 % (11.5-14.5); Red Blood Count 4.08 M/uL (4.63-6.08); White Blood Count 8.06 K/ul (4.8-10.8)
[2022-08-22 07:15] LABS: Calcium 9.5 mg/dl (8.5-10.1); Potassium 4.1 mmol/L (3.5-5.1)
[2022-08-22 07:21] LABS: BUN Creatinine Ratio 12.7 (10-20); Creatinine Clr Calc Pharmacy 70.1 ml/min; Est GFR (African American) 83.5 ml/min; Est GFR (Non-African American) 72.1 ml/min
--- NOTE | 2022-08-22 07:57 | Hospitalist Progress Note ---
Date of Service August 22, 2022 Assessment & Plan (1) Hypotension: (2) Syncope and collapse: (3) CAD (coronary artery disease): (4) DM type 2 (diabetes mellitus, type 2): (5) COPD (chronic obstructive pulmonary disease): (6) HLD (hyperlipidemia): Plan 72-year-old presents with recurrent syncope, found to have 7s pause during the event Hypotension: Syncope Sinus pause/ sick sinus syndrome Pt was hypotensive in outpatient office; [place], dusky, pale, cool and clammy. Received IVF on admission Lactic Acid elevated Do not suspect infectious etiology and infectious work-up negative Pt euvolemic on exam, I/O ordered Pt found to have 7 s pause during the event on heart monitor Plan for pacemaker on Tuesday Monitor on telemetry Cardiology consulted and following CAD: HTN: ECHO 05/28: EF 60-65%; improved from 2020 where EF was 55-60%: Grade 1 diastolic failure Continue baby aspirin Initially held carvedilol, Imdur, Entresto Pt hypertensive and some of home meds restarted Cont. to hold coreg Cardiology following DM2: Holding metformin while inpatient Patient takes Lantus SQ at home; continue as ordered SSI with ACHS checks A1C on 05/28 was 6.7 Glycemic Pharmacy consult to assist with Lantus management H/O COPD: continue on home inhalers CXR - without any acute process Does not require supplemental O2 at baseline Smoking cessation encouraged, Pt uses chewing tobacco. Declines Nicotine patch offering. HLD: Continue atorvastatin Disposition: PCP: Dr. Ruffin Code Status: Full Code VTE Prophylaxis: Lovenox SQ Admission and Anticipated Discharge Date Admission Date: August 20, 2022 Subjective Pt seen in follow-up of syncopal episode in cardiology office as outpatient Monitor noted 7-second pause Cardiology following, and plan for pacemaker placement on Tuesday Currently patient is lying in bed, in NAD Patient denies any chest pain, palpitations, dizziness, also denies shortness of breath or any discomfort Review of Systems Review of Systems: All systems reviewed & are unremarkable except as noted in Subjective Physical Exam Physical Exam: General:WD/WN M in NAD HEENT: head normocephalic, moist mucus membranes, EOMI CV: S1/S2, (-) M/G/R, (-) LE edema Resp: Lungs CTA in all aguilar. On RA GI: Abdomen S/NT/ND, Ax4 bowel sounds, (-) CVA tenderness Musculoskeletal: 5/5 B/L UE strength, 5/5 B/L LE strength. Skin: (-) rashes , (-) erythema. Neuro/Psych: Awake alert oriented, answers appropriately, hard of hearing, moves extremities Results & Data Results & Data ([facility]) Vital Signs (Past 12 Hours) Vital Signs Temp Pulse Pulse Pulse Resp BP BP 08/22/22 07:39 36.5 C 68 17 135/89 08/22/22 05:09 62 155/85 H 173/92 H 08/21/22 22:12 64 08/22/22 03:54 70 200/99 H 08/22/22 03:30 36.8 C 68 68 18 211/87 H 08/22/22 00:02 36.8 C 67 18 162/89 H Pulse Ox O2 Del Method 08/22/22 07:39 96 Room Air 08/22/22 05:09 08/21/22 22:12 08/22/22 03:54 08/22/22 03:30 93 Room Air 08/22/22 00:02 96 Room Air Laboratory Results 08/22/22 08/22/22 08/21/22 Range/Units 05:50 05:50 21:04 WBC 8.06 (4.8-10.8) K/ul RBC 4.08 L (4.63-6.08) M/uL Hgb 13.1 L (14.0-18.0) g/dl Hct 38.1 L (40.1-51.0) % MCV 93.4 (80.0-100.0) fL MCH 32.1 (25.0-34.0) pg MCHC 34.4 (32.0-36.0) g/dL RDW Std Deviation 44.0 (36.4-46.3) fL RDW Coeff of Alesia 12.9 (11.5-14.5) % Plt Count 191 (130-400) K/uL MPV 9.3 L (9.4-12.4) fL Sodium 135 L (136-145) mmol/L Potassium 4.1 (3.5-5.1) mmol/L Chloride 102 (98-107) mmol/L Carbon Dioxide 25 (21-32) mmol/L Anion Gap 8 (3-11) BUN 13 (6-23) mg/dl Creatinine 1.02 (0.6-1.4) mg/dl Est Cr Clr Drug Dosing 70.1 ml/min Est GFR ( Amer) 83.5 ml/min Est GFR (Non-Af Amer) 72.1 ml/min BUN/Creatinine Ratio 12.7 (10-20) Glucose 125 H (70-99(Fasting)) mg/dl POC Glucose 183 H (70-99) mg/dl Estimat Average Glucose mg/dl Hemoglobin A1c (4.5-5.6) % Calcium 9.5 (8.5-10.1) mg/dl Magnesium (1.7-2.4) mg/dl Procalcitonin (0-0.5) ng/ml 08/21/22 08/21/22 08/21/22 Range/Units 16:19 11:24 06:38 WBC (4.8-10.8) K/ul RBC (4.63-6.08) M/uL Hgb (14.0-18.0) g/dl Hct (40.1-51.0) % MCV (80.0-100.0) fL MCH (25.0-34.0) pg MCHC (32.0-36.0) g/dL RDW Std Deviation (36.4-46.3) fL RDW Coeff of [place] (11.5-14.5) % Plt Count (130-400) K/uL MPV (9.4-12.4) fL Sodium (136-145) mmol/L Potassium (3.5-5.1) mmol/L Chloride (98-107) mmol/L Carbon Dioxide (21-32) mmol/L Anion Gap (3-11) BUN (6-23) mg/dl Creatinine (0.6-1.4) mg/dl Est Cr Clr Drug Dosing ml/min Est GFR ( Amer) ml/min Est GFR (Non-Af Amer) ml/min BUN/Creatinine Ratio (10-20) Glucose (70-99(Fasting)) mg/dl POC Glucose 212 H 202 H (70-99) mg/dl Estimat Average Glucose mg/dl Hemoglobin A1c (4.5-5.6) % Calcium (8.5-10.1) mg/dl Magnesium 1.7 (1.7-2.4) mg/dl Procalcitonin (0-0.5) ng/ml 08/21/22 08/21/22 Range/Units 06:38 06:38 WBC (4.8-10.8) K/ul RBC (4.63-6.08) M/uL Hgb (14.0-18.0) g/dl Hct (40.1-51.0) % MCV (80.0-100.0) fL MCH (25.0-34.0) pg MCHC (32.0-36.0) g/dL RDW Std Deviation (36.4-46.3) fL RDW Coeff of [place]lesia (11.5-14.5) % Plt Count (130-400) K/uL MPV (9.4-12.4) fL Sodium (136-145) mmol/L Potassium (3.5-5.1) mmol/L Chloride (98-107) mmol/L Carbon Dioxide (21-32) mmol/L Anion Gap (3-11) BUN (6-23) mg/dl Creatinine (0.6-1.4) mg/dl Est Cr Clr Drug Dosing ml/min Est GFR ( Amer) ml/min Est GFR (Non-Af Amer) ml/min BUN/Creatinine Ratio (10-20) Glucose (70-99(Fasting)) mg/dl POC Glucose (70-99) mg/dl Estimat Average Glucose 163 mg/dl Hemoglobin A1c 7.3 H (4.5-5.6) % Calcium (8.5-10.1) mg/dl Magnesium (1.7-2.4) mg/dl Procalcitonin < 0.05 (0-0.5) ng/ml Medications Administered Current Inpatient Medications Acetaminophen (Acetaminophen 325 Mg Tab) 650 mg PO Q4H PRN PRN Reason: Pain or Fever Stop: 09/19/22 14:50 Hydrocodone Bitart/Acetaminophen (Hydrocodone/Acetamophen 5/325mg Tab) 1 tab PO Q6 PRN PRN Reason: Pain, Moderate Stop: 09/03/22 16:32 Al Hydrox/Mg Hydrox/Simethicone (Aluminum/Magnesium Susp 30 Ml Udc) 15 ml PO Q4H PRN PRN Reason: Dyspepsia Stop: 09/19/22 14:50 Albuterol (Albuterol Hfa 8 Gm Inhaler) 2 puffs INH Q6 PRN PRN Reason: SOB/Wheezing,cough Stop: 09/19/22 16:32 Aspirin (Aspirin 81 Mg Ectab) 81 mg PO QAM [facility] Stop: 09/20/22 08:59 Last Admin: 08/21/22 08:42 Dose: 81 mg Atorvastatin Calcium (Atorvastatin 40 Mg Tab) 80 mg PO QAM [facility] Stop: 09/20/22 08:59 Last Admin: 08/21/22 08:43 Dose: 80 mg Cyanocobalamin (Cyanocobalamin (B-12) 500 Mcg Tablet) 1,000 mcg PO DAILY [facility] Stop: 09/20/22 08:59 Last Admin: 08/21/22 08:42 Dose: 1,000 mcg Dextrose (Dextrose 50% 50 Ml Syringe) 25 - 50 ml IV UD PRN; Protocol PRN Reason: Hypoglycemia Protocol Stop: 09/19/22 16:08 Diclofenac Sodium (Diclofenac Sod 1% Gel 100 Gm Tube) 4 gm EXT Q6 PRN; Protocol PRN Reason: pain Stop: 09/19/22 16:32 Ferrous Sulfate (Ferrous Sulfate 325 Mg Tab) 325 mg PO Q2D@0900 [facility] Stop: 09/20/22 08:59 Last Admin: 08/21/22 08:42 Dose: 325 mg Glucagon (Glucagon For Inj 1 Mg Vial) 1 mg SQ UD PRN; Protocol PRN Reason: Hypoglycemia Protocol Stop: 09/19/22 16:08 Glucose (Glucose 40% Gel 15 Gm Tube) 15 - 30 gm PO UD PRN; Protocol PRN Reason: Hypoglycemia Protocol Stop: 09/19/22 16:08 Glucose (Glucose 10 Tab/Tube) 4 - 8 tab PO UD PRN; Protocol PRN Reason: Hypoglycemia Treatment Stop: 09/19/22 16:08 Heparin Sodium (Porcine) (Heparin Sod 5,000 Unit/0.5 Ml Vial) 5,000 units SQ Q12 [facility] Stop: 09/19/22 20:59 Last Admin: 08/21/22 21:21 Dose: 5,000 units Insulin Aspart (Insulin Aspart Per Unit) 0 units SC ACHS [facility] Stop: 09/19/22 16:29 Last Admin: 08/21/22 21:26 Dose: 2 units Isosorbide Mononitrate (Isosorbide [place] Extended Rel 30 Mg Tabcr) 30 mg PO QAM [facility] Stop: 09/20/22 08:59 Last Admin: 08/21/22 09:23 Dose: 30 mg Lorazepam (Lorazepam 1 Mg Tab) 1 mg PO BID PRN PRN Reason: anxiety/insomnia Stop: 09/19/22 16:32 Last Admin: 08/21/22 23:18 Dose: 1 mg Magnesium Hydroxide (Magnesium Hydroxide Susp 30 Ml Udc) 30 ml PO Q12H PRN PRN Reason: Constipation Stop: 09/19/22 14:50 Magnesium Oxide (Magnesium Oxide 400 Mg Tab) 400 mg PO AMHS [facility] Stop: 09/19/22 20:59 Last Admin: 08/21/22 21:22 Dose: 400 mg Miscellaneous (Carbohydrates For Hypoglycemia ) 15 - 30 gm PO UD PRN PRN Reason: Hypoglycemia Protocol Stop: 09/19/22 16:08 Miscellaneous Information (Pharmacy Glycemic Mgmt Consult) 1 each N/A UD PRN PRN Reason: Consult Stop: 09/19/22 16:08 Ondansetron HCl (Ondansetron Inj 2 Mg/Ml 2 Ml Vial) 4 mg IV Q6H PRN PRN Reason: Nausea Stop: 09/19/22 14:50 Pantoprazole Sodium (Pantoprazole 40 Mg Tab) 40 mg PO DAILY [facility] Stop: 09/20/22 08:59 Last Admin: 08/21/22 08:42 Dose: 40 mg Polyethylene Glycol (Polyethylene (Miralax) 17 Gm Pack) 17 gm PO DAILY PRN PRN Reason: Constipation Stop: 09/19/22 14:50 Sacubitril/Valsartan (Valsartan/Sacubitril 26/24mg Tab) 1 tab PO BID [facility] Stop: 09/20/22 08:59 Last Admin: 08/21/22 21:22 Dose: 1 tab Sertraline HCl (Sertraline Hcl 100 Mg Tablet) 100 mg PO DAILY [facility] Stop: 09/20/22 08:59 Last Admin: 08/21/22 08:43 Dose: 100 mg Triamcinolone Acetonide (Triamcinolone Acet 0.1% Cr 15 Gm Tube) 1 appln TOP BID PRN PRN Reason: STOMACH RASH Stop: 09/19/22 16:32 Last Admin: 08/21/22 23:19 Dose: 1 appln Umeclidinium [place] (Umeclidinium [place] 62.5mcg/Blister 7 Puffs/Inhaler) 1 puffs INH DAILY [facility] Stop: 09/20/22 08:59 Last Admin: 08/21/22 08:45 Dose: 1 puffs
[2022-08-22] MEDS: VALSARTAN/SACUBITRIL 26/24MG TAB PO SCH ×2 (08:21→20:24)
[2022-08-22] MEDS: ISOSORBIDE MONO EXTENDED REL 30 MG TABCR PO SCH (08:22)
[2022-08-22] MEDS: CYANOCOBALAMIN (B-12) 500 MCG TABLET PO SCH (08:22)
[2022-08-22] MEDS: ASPIRIN 81 MG ECTAB PO SCH (08:22)
[2022-08-22] MEDS: PANTOprazole 40 MG TAB PO SCH (08:22)
[2022-08-22] MEDS: UMECLIDINIUM BROMIDE 62.5MCG/BLISTER 7 PUFFS/INHALER INH SCH (08:23)
[2022-08-22] MEDS: ATORVASTATIN 40 MG TAB PO SCH (08:23)
[2022-08-22] MEDS: SERTRALINE HCL 100 MG TABLET PO SCH (08:23)
[2022-08-22] MEDS: MAGNESIUM OXIDE 400 MG TAB PO SCH ×2 (08:23→20:24)
[2022-08-22] MEDS: HEPARIN SOD 5,000 UNIT/0.5 ML VIAL SQ SCH ×2 (08:24→20:25)
[2022-08-22] MEDS: INSULIN ASPART PER UNIT SC SCH ×4 (08:33→20:44)
[2022-08-22] MEDS ORDERED: LANTUS PER UNIT CHARGE SQ ONE (09:00)
--- NOTE | 2022-08-22 10:19 | Cardiology Progress Note ---
Date of Service August 22, 2022 Assessment & Plan (1) Syncope and collapse: (2) Acute hypotension: (3) Chronic anemia: (4) Chronic diastolic heart failure: (5) HTN (hypertension): (6) Pulmonary fibrosis: (7) Ex-smoker: (8) Restrictive lung disease: (9) COPD with emphysema: (10) H/O intracranial hemorrhage: (11) DM type 2 (diabetes mellitus, type 2): (12) CAD (coronary artery disease): Plan The plan is for the patient to receive a permanent pacemaker tomorrow for sick sinus syndrome. Once the pacemaker is in then we will add back some of his medications which will improve his hypertension. Currently I would continue medications that he is on. We will make him n.p.o. after midnight. Admission and Anticipated Discharge Date Admission Date: August 20, 2022 Subjective The patient had an uneventful night. His telemetry has been stable. Review of Systems Review of Systems: Review of Systems: See HPI for pertinent positives. All other 10 point review of systems are negative. Physical Exam Physical Exam: General: no acute distress and stated age Head: normocephalic, no masses, lesions, tenderness or abnormalities Eyes: conjunctiva are pink and non-injected, sclera clear Neck: supple, no adenopathy, no bruits, normal jugular venous pulse, no hepatojugular reflux Chest: normal shape and normal respiratory effort Lungs: clear to auscultation and percussion Cardiac Exam: - regular rate & rhythm, no murmurs gallops or rubs - normal S1, normal S2 Pulses: 2(+) throughout Abdomen: abdomen soft, non-tender, no abnormal masses and no hepatosplenomegaly Musculoskeletal: no gait disturbance, no joint inflammation, no deforming arthritis Extremities: no edema and no cyanosis Neuro: grossly normal exam Results & Data ([facility]) Vital Signs (Past 12 Hours) Vital Signs Temp Pulse Pulse Resp BP BP Pulse Ox 08/22/22 07:59 36.7 C 66 16 162/93 H 96 08/22/22 07:39 36.5 C 68 17 135/89 96 08/22/22 05:09 62 155/85 H 173/92 H 08/22/22 03:54 70 200/99 H 08/22/22 03:30 36.8 C 68 68 18 211/87 H 93 08/22/22 00:02 36.8 C 67 18 162/89 H 96 O2 Del Method 08/22/22 07:59 Room Air 08/22/22 07:39 Room Air 08/22/22 05:09 08/22/22 03:54 08/22/22 03:30 Room Air 08/22/22 00:02 Room Air Laboratory Results Laboratory Results - last 24 hr 08/21/22 08/21/22 08/21/22 11:24 16:19 21:04 WBC RBC Hgb Hct MCV MCH MCHC RDW Std Deviation RDW Coeff of Alesia Plt Count MPV Sodium Potassium Chloride Carbon Dioxide Anion Gap BUN Creatinine Est Cr Clr Drug Dosing Est GFR ( Amer) Est GFR (Non-Af Amer) BUN/Creatinine Ratio Glucose POC Glucose 202 H 212 H 183 H Calcium 08/22/22 08/22/22 05:50 05:50 WBC 8.06 RBC 4.08 L Hgb 13.1 L Hct 38.1 L MCV 93.4 MCH 32.1 MCHC 34.4 RDW Std Deviation 44.0 RDW Coeff of Alesia 12.9 Plt Count 191 MPV 9.3 L Sodium 135 L Potassium 4.1 Chloride 102 Carbon Dioxide 25 Anion Gap 8 BUN 13 Creatinine 1.02 Est Cr Clr Drug Dosing 70.1 Est GFR ( Amer) 83.5 Est GFR (Non-Af Amer) 72.1 BUN/Creatinine Ratio 12.7 Glucose 125 H POC Glucose Calcium 9.5 Medications Administered Current Inpatient Medications Acetaminophen (Acetaminophen 325 Mg Tab) 650 mg PO Q4H PRN PRN Reason: Pain or Fever Stop: 09/19/22 14:50 Hydrocodone Bitart/Acetaminophen (Hydrocodone/Acetamophen 5/325mg Tab) 1 tab PO Q6 PRN PRN Reason: Pain, Moderate Stop: 09/03/22 16:32 Al Hydrox/Mg Hydrox/Simethicone (Aluminum/Magnesium Susp 30 Ml Udc) 15 ml PO Q4H PRN PRN Reason: Dyspepsia Stop: 09/19/22 14:50 Albuterol (Albuterol Hfa 8 Gm Inhaler) 2 puffs INH Q6 PRN PRN Reason: SOB/Wheezing,cough Stop: 09/19/22 16:32 Aspirin (Aspirin 81 Mg Ectab) 81 mg PO QAM [facility] Stop: 09/20/22 08:59 Last Admin: 08/22/22 08:22 Dose: 81 mg Atorvastatin Calcium (Atorvastatin 40 Mg Tab) 80 mg PO QAM [facility] Stop: 09/20/22 08:59 Last Admin: 08/22/22 08:23 Dose: 80 mg Cyanocobalamin (Cyanocobalamin (B-12) 500 Mcg Tablet) 1,000 mcg PO DAILY [facility] Stop: 09/20/22 08:59 Last Admin: 08/22/22 08:22 Dose: 1,000 mcg Dextrose (Dextrose 50% 50 Ml Syringe) 25 - 50 ml IV UD PRN; Protocol PRN Reason: Hypoglycemia Protocol Stop: 09/19/22 16:08 Diclofenac Sodium (Diclofenac Sod 1% Gel 100 Gm Tube) 4 gm EXT Q6 PRN; Protocol PRN Reason: pain Stop: 09/19/22 16:32 Ferrous Sulfate (Ferrous Sulfate 325 Mg Tab) 325 mg PO Q2D@0900 [facility] Stop: 09/20/22 08:59 Last Admin: 08/21/22 08:42 Dose: 325 mg Glucagon (Glucagon For Inj 1 Mg Vial) 1 mg SQ UD PRN; Protocol PRN Reason: Hypoglycemia Protocol Stop: 09/19/22 16:08 Glucose (Glucose 40% Gel 15 Gm Tube) 15 - 30 gm PO UD PRN; Protocol PRN Reason: Hypoglycemia Protocol Stop: 09/19/22 16:08 Glucose (Glucose 10 Tab/Tube) 4 - 8 tab PO UD PRN; Protocol PRN Reason: Hypoglycemia Treatment Stop: 09/19/22 16:08 Heparin Sodium (Porcine) (Heparin Sod 5,000 Unit/0.5 Ml Vial) 5,000 units SQ Q12 [facility] Stop: 09/19/22 20:59 Last Admin: 08/22/22 08:24 Dose: 5,000 units Insulin Aspart (Insulin Aspart Per Unit) 0 units SC ACHS [facility] Stop: 09/19/22 16:29 Last Admin: 08/22/22 08:33 Dose: 5 units Isosorbide Mononitrate (Isosorbide [place] Extended Rel 30 Mg Tabcr) 30 mg PO QAM [facility] Stop: 09/20/22 08:59 Last Admin: 08/22/22 08:22 Dose: 30 mg Lorazepam (Lorazepam 1 Mg Tab) 1 mg PO BID PRN PRN Reason: anxiety/insomnia Stop: 09/19/22 16:32 Last Admin: 08/21/22 23:18 Dose: 1 mg Magnesium Hydroxide (Magnesium Hydroxide Susp 30 Ml Udc) 30 ml PO Q12H PRN PRN Reason: Constipation Stop: 09/19/22 14:50 Magnesium Oxide (Magnesium Oxide 400 Mg Tab) 400 mg PO AMHS [facility] Stop: 09/19/22 20:59 Last Admin: 08/22/22 08:23 Dose: 400 mg Miscellaneous (Carbohydrates For Hypoglycemia ) 15 - 30 gm PO UD PRN PRN Reason: Hypoglycemia Protocol Stop: 09/19/22 16:08 Miscellaneous Information (Pharmacy Glycemic Mgmt Consult) 1 each N/A UD PRN PRN Reason: Consult Stop: 09/19/22 16:08 Ondansetron HCl (Ondansetron Inj 2 Mg/Ml 2 Ml Vial) 4 mg IV Q6H PRN PRN Reason: Nausea Stop: 09/19/22 14:50 Pantoprazole Sodium (Pantoprazole 40 Mg Tab) 40 mg PO DAILY [facility] Stop: 09/20/22 08:59 Last Admin: 08/22/22 08:22 Dose: 40 mg Polyethylene Glycol (Polyethylene (Miralax) 17 Gm Pack) 17 gm PO DAILY PRN PRN Reason: Constipation Stop: 09/19/22 14:50 Sacubitril/Valsartan (Valsartan/Sacubitril 26/24mg Tab) 1 tab PO BID [facility] Stop: 09/20/22 08:59 Last Admin: 08/22/22 08:21 Dose: 1 tab Sertraline HCl (Sertraline Hcl 100 Mg Tablet) 100 mg PO DAILY [facility] Stop: 09/20/22 08:59 Last Admin: 08/22/22 08:23 Dose: 100 mg Triamcinolone Acetonide (Triamcinolone Acet 0.1% Cr 15 Gm Tube) 1 appln TOP BID PRN PRN Reason: STOMACH RASH Stop: 09/19/22 16:32 Last Admin: 08/21/22 23:19 Dose: 1 appln Umeclidinium [place] (Umeclidinium [place] 62.5mcg/Blister 7 Puffs/Inhaler) 1 puffs INH DAILY [facility] Stop: 09/20/22 08:59 Last Admin: 08/22/22 08:23 Dose: 1 puffs
--- NOTE | 2022-08-22 10:41 | Electrocardiogram Report ---
Test Reason : Blood Pressure : / mmHG Vent. Rate : 063 BPM Atrial Rate : 063 BPM P-R Int : 208 ms QRS Dur : 082 ms QT Int : 414 ms P-R-T Axes : 054 -21 049 degrees QTc Int : 423 ms Normal sinus rhythm Nonspecific T wave abnormality Abnormal ECG When compared with ECG of 20-AUG-2022 14:19, No significant change was found Confirmed by Sanchez Jack ([id number]) on 08/22/2022 10:41:30 AM Referred By: REFERRED SELF Confirmed By:Sanchez Jack
--- NOTE | 2022-08-22 11:00 | Electrocardiogram Report ---
Test Reason : Blood Pressure : / mmHG Vent. Rate : 066 BPM Atrial Rate : 066 BPM P-R Int : 200 ms QRS Dur : 090 ms QT Int : 430 ms P-R-T Axes : 054 -02 108 degrees QTc Int : 450 ms Normal sinus rhythm Nonspecific T wave abnormality Abnormal ECG When compared with ECG of 21-AUG-2022 04:50, (unconfirmed) Nonspecific T wave abnormality worse V4-V6 Confirmed by Sanchez Jack ([id number]) on 08/22/2022 11:00:07 AM Referred By: REFERRED SELF Confirmed By:Sanchez Jack
[2022-08-22] MEDS ORDERED: LANTUS PER UNIT CHARGE SC SCH (21:00)
[2022-08-22] MEDS: LORazepam 1 MG TAB PO PRN (21:58)
[2022-08-22] MEDS: NICOTINE 21 MG/24 HR TDSY TD SCH (23:21)
[2022-08-23] MEDS ORDERED: LANTUS PER UNIT CHARGE SQ ONE (08:00)
--- NOTE | 2022-08-23 08:40 | Hospitalist Progress Note ---
Date of Service August 23, 2022 Assessment & Plan (1) Hypotension: (2) Syncope and collapse: (3) CAD (coronary artery disease): (4) DM type 2 (diabetes mellitus, type 2): (5) COPD (chronic obstructive pulmonary disease): (6) HLD (hyperlipidemia): Plan 72-year-old presents with recurrent syncope, found to have 7s pause during the event Hypotension: Syncope Sinus pause/ sick sinus syndrome Pt was hypotensive in outpatient office; [place], dusky, pale, cool and clammy. Received IVF on admission Lactic Acid elevated Do not suspect infectious etiology and infectious work-up negative Pt euvolemic on exam, I/O ordered Pt found to have 7 s pause during the event on heart monitor Plan for dual-chamber pacemaker today (08/23/22) Monitor on telemetry Cardiology consulted and following -plan to start coreg this PM - likely to stop entresto and start losartan for BP CAD: HTN: ECHO 05/28: EF 60-65%; improved from 2020 where EF was 55-60%: Grade 1 diastolic failure Continue baby aspirin Initially held carvedilol, Imdur, Entresto -plan to start coreg this PM -likely to stop entresto and start losartan for BP Cardiology following DM2: Holding metformin while inpatient Patient takes Lantus SQ at home; continue as ordered SSI with ACHS checks A1C on 05/28 was 6.7 Glycemic Pharmacy consult to assist with Lantus management H/O COPD: continue on home inhalers CXR - without any acute process Does not require supplemental O2 at baseline Smoking cessation encouraged, Pt uses chewing tobacco. Declines Nicotine patch offering. HLD: Continue atorvastatin Disposition: PCP: Dr. Ruffin Code Status: Full Code VTE Prophylaxis: Lovenox SQ Admission and Anticipated Discharge Date Admission Date: August 20, 2022 Subjective Pt seen in follow-up of syncopal episode in cardiology office as outpatient Monitor noted 7-second pause during the episode Cardiology following, and plan for pacemaker placement today Currently patient is lying in bed, in NAD No acute events overnight Patient denies any chest pain, palpitations, dizziness, also denies shortness of breath or any discomfort Review of Systems Review of Systems: All systems reviewed & are unremarkable except as noted in Subjective Physical Exam Physical Exam: General:WD/WN M in NAD HEENT: head normocephalic, moist mucus membranes, EOMI CV: S1/S2, (-) M/G/R, (-) LE edema Resp: Lungs CTA in all aguilar. On RA GI: Abdomen S/NT/ND, Ax4 bowel sounds, (-) CVA tenderness Musculoskeletal: 5/5 B/L UE strength, 5/5 B/L LE strength. Skin: (-) rashes , (-) erythema. Neuro/Psych: Awake alert oriented, answers appropriately, hard of hearing, moves extremities Results & Data Results & Data ([facility] [place]) Vital Signs (Past 12 Hours) Vital Signs Temp Pulse Pulse Resp BP Pulse Ox O2 Del Method 08/23/22 07:42 36.7 C 79 20 155/96 H 100 Room Air 08/23/22 03:44 36.4 C L 63 16 161/79 H 97 Room Air 08/23/22 00:06 71 08/22/22 23:35 36.7 C 63 16 149/77 H 95 Room Air 08/23/22 00:01 Room Air Medications Administered Current Inpatient Medications Acetaminophen (Acetaminophen 325 Mg Tab) 650 mg PO Q4H PRN PRN Reason: Pain or Fever Stop: 09/19/22 14:50 Hydrocodone Bitart/Acetaminophen (Hydrocodone/Acetamophen 5/325mg Tab) 1 tab PO Q6 PRN PRN Reason: Pain, Moderate Stop: 09/03/22 16:32 Al Hydrox/Mg Hydrox/Simethicone (Aluminum/Magnesium Susp 30 Ml Udc) 15 ml PO Q4H PRN PRN Reason: Dyspepsia Stop: 09/19/22 14:50 Albuterol (Albuterol Hfa 8 Gm Inhaler) 2 puffs INH Q6 PRN PRN Reason: SOB/Wheezing,cough Stop: 09/19/22 16:32 Aspirin (Aspirin 81 Mg Ectab) 81 mg PO QAM [facility] Stop: 09/20/22 08:59 Last Admin: 08/22/22 08:22 Dose: 81 mg Atorvastatin Calcium (Atorvastatin 40 Mg Tab) 80 mg PO QAM [facility] Stop: 09/20/22 08:59 Last Admin: 08/22/22 08:23 Dose: 80 mg Cyanocobalamin (Cyanocobalamin (B-12) 500 Mcg Tablet) 1,000 mcg PO DAILY [facility] Stop: 09/20/22 08:59 Last Admin: 08/22/22 08:22 Dose: 1,000 mcg Dextrose (Dextrose 50% 50 Ml Syringe) 25 - 50 ml IV UD PRN; Protocol PRN Reason: Hypoglycemia Protocol Stop: 09/19/22 16:08 Diclofenac Sodium (Diclofenac Sod 1% Gel 100 Gm Tube) 4 gm EXT Q6 PRN; Protocol PRN Reason: pain Stop: 09/19/22 16:32 Ferrous Sulfate (Ferrous Sulfate 325 Mg Tab) 325 mg PO Q2D@0900 [facility] Stop: 09/20/22 08:59 Last Admin: 08/21/22 08:42 Dose: 325 mg Glucagon (Glucagon For Inj 1 Mg Vial) 1 mg SQ UD PRN; Protocol PRN Reason: Hypoglycemia Protocol Stop: 09/19/22 16:08 Glucose (Glucose 40% Gel 15 Gm Tube) 15 - 30 gm PO UD PRN; Protocol PRN Reason: Hypoglycemia Protocol Stop: 09/19/22 16:08 Glucose (Glucose 10 Tab/Tube) 4 - 8 tab PO UD PRN; Protocol PRN Reason: Hypoglycemia Treatment Stop: 09/19/22 16:08 Heparin Sodium (Porcine) (Heparin Sod 5,000 Unit/0.5 Ml Vial) 5,000 units SQ Q12 [facility] Stop: 09/19/22 20:59 Last Admin: 08/22/22 20:25 Dose: 5,000 units Insulin Aspart (Insulin Aspart Per Unit) 0 units SC ACHS [facility] Stop: 09/19/22 16:29 Last Admin: 08/22/22 20:44 Dose: 5 units Isosorbide Mononitrate (Isosorbide [place] Extended Rel 30 Mg Tabcr) 30 mg PO QAM [facility] Stop: 09/20/22 08:59 Last Admin: 08/22/22 08:22 Dose: 30 mg Lorazepam (Lorazepam 1 Mg Tab) 1 mg PO BID PRN PRN Reason: anxiety/insomnia Stop: 09/19/22 16:32 Last Admin: 08/22/22 21:58 Dose: 1 mg Magnesium Hydroxide (Magnesium Hydroxide Susp 30 Ml Udc) 30 ml PO Q12H PRN PRN Reason: Constipation Stop: 09/19/22 14:50 Magnesium Oxide (Magnesium Oxide 400 Mg Tab) 400 mg PO AMHS [facility] Stop: 09/19/22 20:59 Last Admin: 08/22/22 20:24 Dose: 400 mg Miscellaneous (Carbohydrates For Hypoglycemia ) 15 - 30 gm PO UD PRN PRN Reason: Hypoglycemia Protocol Stop: 09/19/22 16:08 Miscellaneous (Remove Nicoderm Patch) 1 each N/A DAILY@0859 [facility] Stop: 09/22/22 08:58 Miscellaneous Information (Pharmacy Glycemic Mgmt Consult) 1 each N/A UD PRN PRN Reason: Consult Stop: 09/19/22 16:08 Nicotine (Nicotine 21 Mg/24 Hr Tdsy) 21 mg TD DAILY [facility] Stop: 09/21/22 21:44 Last Admin: 08/22/22 23:21 Dose: 21 mg Ondansetron HCl (Ondansetron Inj 2 Mg/Ml 2 Ml Vial) 4 mg IV Q6H PRN PRN Reason: Nausea Stop: 09/19/22 14:50 Pantoprazole Sodium (Pantoprazole 40 Mg Tab) 40 mg PO DAILY [facility] Stop: 09/20/22 08:59 Last Admin: 08/22/22 08:22 Dose: 40 mg Polyethylene Glycol (Polyethylene (Miralax) 17 Gm Pack) 17 gm PO DAILY PRN PRN Reason: Constipation Stop: 09/19/22 14:50 Sacubitril/Valsartan (Valsartan/Sacubitril 26/24mg Tab) 1 tab PO BID [facility] Stop: 09/20/22 08:59 Last Admin: 08/22/22 20:24 Dose: 1 tab Sertraline HCl (Sertraline Hcl 100 Mg Tablet) 100 mg PO DAILY [facility] Stop: 09/20/22 08:59 Last Admin: 08/22/22 08:23 Dose: 100 mg Triamcinolone Acetonide (Triamcinolone Acet 0.1% Cr 15 Gm Tube) 1 appln TOP BID PRN PRN Reason: STOMACH RASH Stop: 09/19/22 16:32 Last Admin: 08/21/22 23:19 Dose: 1 appln Umeclidinium [place] (Umeclidinium [place] 62.5mcg/Blister 7 Puffs/Inhaler) 1 puffs INH DAILY [facility] Stop: 09/20/22 08:59 Last Admin: 08/22/22 08:23 Dose: 1 puffs
[2022-08-23] MEDS: INSULIN ASPART PER UNIT SC SCH ×4 (08:49→22:07)
[2022-08-23] MEDS: HEPARIN SOD 5,000 UNIT/0.5 ML VIAL SQ SCH ×2 (08:50→21:56)
[2022-08-23] MEDS: NICOTINE 21 MG/24 HR TDSY TD SCH (08:51)
[2022-08-23] MEDS: CYANOCOBALAMIN (B-12) 500 MCG TABLET PO SCH (08:52)
[2022-08-23] MEDS: ATORVASTATIN 40 MG TAB PO SCH (08:52)
[2022-08-23] MEDS: ASPIRIN 81 MG ECTAB PO SCH (08:52)
[2022-08-23] MEDS: UMECLIDINIUM BROMIDE 62.5MCG/BLISTER 7 PUFFS/INHALER INH SCH (08:53)
[2022-08-23] MEDS: FERROUS SULFATE 325 MG TAB PO SCH (08:53)
[2022-08-23] MEDS: PANTOprazole 40 MG TAB PO SCH (08:53)
[2022-08-23] MEDS: ISOSORBIDE MONO EXTENDED REL 30 MG TABCR PO SCH (08:53)
[2022-08-23] MEDS: SERTRALINE HCL 100 MG TABLET PO SCH (08:53)
[2022-08-23] MEDS: MAGNESIUM OXIDE 400 MG TAB PO SCH ×2 (08:53→21:55)
[2022-08-23] MEDS: VALSARTAN/SACUBITRIL 26/24MG TAB PO SCH ×2 (08:53→21:55)
[2022-08-23] MEDS ORDERED: MIDAZOLAM HCL 5 MG/ML 1 ML VIAL ONE (09:40)
[2022-08-23] MEDS ORDERED: ceFAZolin 330 MG/ML 1 GM VIAL ONE (09:40)
[2022-08-23] MEDS ORDERED: fentaNYL citrate 100 MCG/2 ML VIAL ONE (09:40)
[2022-08-23] MEDS ORDERED: LIDOCAINE 1% LOCAL 20 ML VIAL ONE (09:40)
[2022-08-23] MEDS ORDERED: WATER, STERILE FOR INJ 10 ML VIAL ONE (09:40)
[2022-08-23] MEDS ORDERED: VANCOMYCIN HCL 1000MG/20ML VIAL ONE (09:40)
[2022-08-23] MEDS ORDERED: BUPIVACAINE 0.25% 30 ML VIAL ONE (09:41)
--- NOTE | 2022-08-23 09:42 | Cardiology Progress Note ---
Date of Service August 23, 2022 Patient seen by Kana DE LEÓN, and Dr. Olvera on 08/24/22. Assessment & Plan (1) Syncope and collapse: (2) Acute hypotension: (3) Chronic anemia: (4) Chronic diastolic heart failure: (5) HTN (hypertension): (6) Pulmonary fibrosis: (7) Ex-smoker: (8) Restrictive lung disease: (9) COPD with emphysema: (10) H/O intracranial hemorrhage: (11) DM type 2 (diabetes mellitus, type 2): (12) CAD (coronary artery disease): Plan Recurrent ricardo syncopal episode witnessed in the cardiology clinic on 08/20/2022 while wearing a live ambulatory EKG which revealed multiple pauses up to 7 seconds in duration - Sick Sinus Syndrome. ASCVD. Stable. Nonischemic pharmacological stress testing last on April 29, 2022. Hypertension. Moderate concentric LVH. See above. Diastolic congestive heart failure. Well compensated Asymptomatic premature ventricular contractions, quiescent, with preserved LV systolic function. Dyslipidemia. LDL cholesterol 50 on March 05, 2022. Prescribed atorvastatin 80 mg/day. Mild bilateral internal carotid artery disease. Last evaluated in December 2019. Stable for many years. Iron deficiency anemia. Past intracranial hemorrhage, requiring craniotomy, 2007 Type 2 diabetes mellitus. History of tobacco abuse, emphysema, interstitial lung disease/fibrosis, hypersomnia, followed by [facility]. BPH with LUTS. RECOMMENDATIONS: Dual-chamber permanent pacemaker today. Resume Carvedilol at the reduced dose of 6.25 mg twice per day post pacemaker implantation. Switch Entresto to low dose Losartan for the asymptomatic compensated HFpEF. Repeat carotid duplex as an outpatient. Admission and Anticipated Discharge Date Admission Date: August 20, 2022 Supervising Physician Co-Signing Physician Notes I have seen and examined the patient. I reviewed the medical record and discussed the case with Kana Somers. Patient is post pacemaker implant and doing well. I agree with restarting his carvedilol. Subjective Patient seen and examined. Chart, medications, and telemetry reviewed. Uneventful overnight course. Anxiously awaiting permanent pacemaker implantation No pain or discomfort. No chest pain, palpitations, unusual shortness of breath, orthopnea, PND, peripheral edema, lightheadedness, dizziness, near syncope, fevers, or chills Telemetry: Sinus in the 60's, first degree AV block. Review of Systems Review of Systems: Complete Review of Systems is as stated above, negative, or noncontributory. Physical Exam Physical Exam: General: A&Ox3. NAD. Hard of hearing. Laying supine. HENT: Normocephalic. Atraumatic. Eyes: PER. Conjunctiva pink, sclera clear. Neck: Bilateral carotid bruits. No JVD. No HJR. Heart: RRR. No murmur. No rub. No gallop. PMI is nondisplaced. Lungs: Clear to auscultation. Abdomen: +BS. Soft. Nontender. No masses or organomegaly. Extremities: No clubbing, cyanosis, or edema. Limited neurological examination is without focal deficits. Pulses: radial=2/4, posterior tibial=2/4. Results & Data ([facility]) Vital Signs (Past 12 Hours) Vital Signs Temp Pulse Pulse Resp BP Pulse Ox O2 Del Method 08/23/22 07:42 36.7 C 79 20 155/96 H 100 Room Air 08/23/22 03:44 36.4 C L 63 16 161/79 H 97 Room Air 08/23/22 00:06 71 08/22/22 23:35 36.7 C 63 16 149/77 H 95 Room Air 08/23/22 00:01 Room Air Laboratory Results Intake and Output 08/22/22 08/23/22 08/23/22 22:59 06:59 14:59 Output Total 200 / 1200 400 / 1200 Balance -200 / -1200 -400 / -1200 Output: Urine 200 / 1200 400 / 1200 Other: Other Intake Source NPO
--- NOTE | 2022-08-23 09:46 | Pre Anesthesia Assessment ---
Date of Service August 23, 2022 Pre Sedation Assessment Vital Signs Temp Pulse Pulse Pulse Resp BP Pulse Ox 08/23/22 09:41 67 16 169/97 H 95 08/23/22 07:42 36.7 C 79 20 155/96 H 100 08/23/22 03:44 36.4 C L 63 16 161/79 H 97 08/23/22 00:06 71 08/22/22 23:35 36.7 C 63 16 149/77 H 95 08/23/22 00:01 08/22/22 19:46 36.7 C 85 18 173/80 H 95 08/22/22 16:39 68 08/22/22 16:27 70 16 152/82 H 95 08/22/22 14:00 08/22/22 12:01 36.6 C 65 16 153/78 H 95 08/22/22 10:45 70 Pulse Ox O2 Del Method O2 Del Method 08/23/22 09:41 Room Air 08/23/22 07:42 Room Air 08/23/22 03:44 Room Air 08/23/22 00:06 08/22/22 23:35 Room Air 08/23/22 00:01 Room Air 08/22/22 19:46 Room Air 08/22/22 16:39 08/22/22 16:27 Room Air 08/22/22 14:00 97 Room Air 08/22/22 12:01 Room Air 08/22/22 10:45 Cardiovascular + regular rate and + regular rhythm Respiratory + respiratory effort normal Pre-Sedation Airway Assessment Smoking Status: Former smoker Hx Sleep Apnea: No Hx Difficult Intubation: No Short, Thick Neck: No Thyromental Distance: > or= 3.5 Finger Breadths Oral Cavity: + WNL Mallampati Class: III ASA: ASA3 Procedure Planning Contraindications for Sedation: none Current Medications Reviewed: Yes Notes The planned sedation has been discussed with the patient. Informed Consent was obtained. I have identified the patient, determined the appropriateness of sedation and have assessed the patient immediately prior to the procedure. All medicine(s) and interventions are by my order.
--- NOTE | 2022-08-23 10:51 | Post Anesthesia Assessment ---
Date of Service August 23, 2022 Post Sedation Assessment Vital Signs Temp Pulse Pulse Pulse Resp BP Pulse Ox 08/23/22 09:41 67 16 169/97 H 95 08/23/22 07:42 36.7 C 79 20 155/96 H 100 08/23/22 03:44 36.4 C L 63 16 161/79 H 97 08/23/22 00:06 71 08/22/22 23:35 36.7 C 63 16 149/77 H 95 08/23/22 00:01 08/22/22 19:46 36.7 C 85 18 173/80 H 95 08/22/22 16:39 68 08/22/22 16:27 70 16 152/82 H 95 08/22/22 14:00 08/22/22 12:01 36.6 C 65 16 153/78 H 95 Pulse Ox O2 Del Method O2 Del Method 08/23/22 09:41 Room Air 08/23/22 07:42 Room Air 08/23/22 03:44 Room Air 08/23/22 00:06 08/22/22 23:35 Room Air 08/23/22 00:01 Room Air 08/22/22 19:46 Room Air 08/22/22 16:39 08/22/22 16:27 Room Air 08/22/22 14:00 97 Room Air 08/22/22 12:01 Room Air Recovery Score Activity: Moves 4 extremities Respiration: Deep Breath/Cough Circulation: +/-20% PreAnes Value Consciousness: Fully Awake Oxygen Saturation: > 92% On Room Air Discharge Sedation Level of Care: Fast Track Phase II Post Sedation Plan On clinical assessment, the patient appears to have tolerated the sedation without complications. Patient is recovering as anticipated. Patient will continue to be monitored by nursing and may be discharged when sedation discharge criteria are met per below protocol. Upon Completions of procedure up to 15 minutes continue every 5 minute vital signs and the P.A.R. score; then discharge to a Phase I or Fast Track to Phase II per the following guidelines: * Discharge Patient to appropriate Phase II area if PAR is 8 or greater or return to pre- procedure baseline. The post - procedure orders will be as directed. * If PAR score is less than 8 or not return to pre-procedure baseline then patient will follow Phase I monitoring till PAR is reached for Phase II. The Phase I may be done in procedure room or may call to secure a Phase I area. * If naloxone or flumazenil are used for reversal, hold in Phase I for continued monitoring from when last reversal dose was given for a minimum of 60 minutes or longer pending the nurse and/or physician discretion of patient condition before discharge to Phase II. Please call the Sedation Physician to re-evaluate and complete post-note for discharge to Phase II area. Do NOT discharge from procedure sedation or Phase 1 until post- sedation evaluation note is complete by procedure /sedation MD Sedation Discharge Instructions to be given to the patient at discharge to home.
--- NOTE | 2022-08-23 10:51 | Electrophysiology Report ---
Date of Service August 23, 2022 Electrophysiology Procedure Electrophysiology Procedure Report Procedure performed: Implantation of dual-chamber permanent pacemaker Staff motor teacher: Sridhar Barcenas MD Indication: The patient is a 72-year-old gentleman with a history of syncope. He was noted on outpatient monitoring to have episodes of asystole. He is felt to be a good candidate for dual-chamber permanent pacemaker due to symptomatic nonreversible sinus node dysfunction. Dual-chamber device was selected disease currently in sinus rhythm which to maintain AV synchrony. Procedure in detail: The patient was informed of the risks benefits and alternatives to the intended procedure and he wished to proceed. He was taken to the electrophysiology suite in a fasting state. A preoperative antibiotic had been administered. The patient was monitored electrocardiographically throughout today's procedure and conscious sedation was administered per protocol. The left upper pectoral area is prepped and draped in usual sterile fashion. This area was anesthetized using subcutaneous administration of a xylocaine solution. An incision was made at this site and carried down to the prepectoralis fascia using sharp dissection. Electrocautery was also employed for dissection as well as for hemostasis. A device pocket was fashioned tissues above the pectoralis muscle. Subsequent to this maneuver the left axillary vein was accessed using modified Seldinger technique. A sheath was placed over guidewire and used facilitate passage of the guiding catheter for mapping of the interventricular septum. Once an adequate location was found the pacing lead was advanced into the interventricular septum. Adequate sensing threshold parameters were obtained prior to removal of the guiding catheter. A sheath was placed over the remaining guidewire and used facilitate passage of the pacing lead to the right atrium under fluoroscopic guidance. Adequate sensing threshold parameters were obtained prior to active fixation of this lead to the endocardial surface. Proximal portion lead was then sutured to prepectoralis fascia. The device pocket was irrigated with antibiotic solution. The leads were then attached to the device. The device and leads were then placed in the pocket and pocket was closed in 3 layers of absorbable suture. Steri-Strips and sterile dressing were applied. The device was tested noninvasively prior to conclusion the procedure. The patient tolerated procedure well there no immediate complications. Equipment used: New pulse generator: Margin Trimmer [employer]. Model number: [id number] serial number [id number] Right atrial lead: Margin Trimmer [employer]. Model number: 5076 serial number [id number] Right ventricular lead: Margin Trimmer [employer]. Model number: 3830 serial number [id number] Measured data: Right atrial lead: P-wave is red 5.1 mV. Pacing threshold was 3 volts at 0.5 millisecond with a pacing impedance of 834 Ohms Right ventricular lead: R-waves measured 9.8 mV. Pacing threshold was 0.3 volts at 0.5 millisecond with a pacing impedance of 828 Ohms Impression: Successful implantation of dual-chamber permanent pacemaker with left bundle pacing lead [facility] Electrophysiology codes Pacing Procedure 1: Pacin Insert/Replace Pacer A & V PG Moderate Sedation Codes Moderate Sedation Codes Procedure 1: Sedation/Anesthesia: 53293 Mod Sedation by the same physician;Init15 Min Child Age 5 & Up Procedure 2: Sedation/Anesthesia: 15550 Mod Sedation by the same physician; Ea [id number] Minutes
[2022-08-23] MEDS ORDERED: ceFAZolin 1000MG 1,000 MG/7.5 ML SYR IV ONE (18:00)
[2022-08-23] MEDS: ACETAMINOPHEN 325 MG TAB PO PRN (18:46)
[2022-08-23] MEDS ORDERED: LANTUS PER UNIT CHARGE SC SCH (21:00)
[2022-08-23] MEDS: carvediloL 6.25 MG TAB PO SCH (21:56)
[2022-08-23] MEDS: LORazepam 1 MG TAB PO PRN (22:17)
[2022-08-24] MEDS: ACETAMINOPHEN 325 MG TAB PO PRN (06:31)
[2022-08-24 07:24] LABS: Hematocrit (blood only) 38.7 % (40.1-51.0); Hemoglobin 13.3 g/dl (14.0-18.0); Mean Corpuscular Hemoglobin 32.1 pg (25.0-34.0); Mean Corpuscular Hgb Conc 34.4 g/dL (32.0-36.0); Mean Corpuscular Volume 93.5 fL (80.0-100.0); Mean Platelet Volume 9.2 fL (9.4-12.4); Platelet Count 178 K/uL (130-400); RDW Standard Deviation 44.6 fL (36.4-46.3); Red Blood Count 4.14 M/uL (4.63-6.08); White Blood Count 8.14 K/ul (4.8-10.8)
[2022-08-24 08:04] LABS: Calcium 9.2 mg/dl (8.5-10.1); Magnesium 1.7 mg/dl (1.7-2.4); Potassium 4.1 mmol/L (3.5-5.1)
[2022-08-24 08:10] LABS: BUN Creatinine Ratio 16.4 (10-20); Est GFR (African American) 71.5 ml/min; Est GFR (Non-African American) 61.7 ml/min; Phosphorus 3.6 mg/dl (2.5-4.9)
[2022-08-24] MEDS ORDERED: MAGNESIUM SULFATE / D5W 1 GM/100 ML BAG IV ONE (08:11)
--- NOTE | 2022-08-24 08:14 | Hospitalist Progress Note ---
Date of Service August 24, 2022 Assessment & Plan (1) Hypotension: (2) Syncope and collapse: (3) CAD (coronary artery disease): (4) DM type 2 (diabetes mellitus, type 2): (5) COPD (chronic obstructive pulmonary disease): (6) HLD (hyperlipidemia): Plan 72-year-old presents with recurrent syncope, found to have 7s pause during the event Hypotension: Syncope Sinus pause/ sick sinus syndrome Pt found to have 7 s pause during the event on heart monitor Now s/p dual-chamber pacemaker (08/23/22) Pt is doing well CXR reviewed by me this AM Discussed w/ Dr. Barcenas (EP) this AM - plan to DC later today Cardiology consulted and following - re-started coreg at 6.25 mg bid (lower dose than home dose) - stopped entresto and started losartan 25 mg daily -Follow-up in device clinic scheduled CAD: HTN: ECHO 05/28: EF 60-65%; improved from 2020 where EF was 55-60%: Grade 1 diastolic failure Continue baby aspirin Cardiology following - med. changes as above DM2: Holding metformin while inpatient Patient takes Lantus SQ at home; continue as ordered SSI with ACHS checks A1C on 05/28 was 6.7 Glycemic Pharmacy consult to assist with Lantus management H/O COPD: continue on home inhalers CXR - without any acute process Does not require supplemental O2 at baseline Smoking cessation encouraged, Pt uses chewing tobacco. Declines Nicotine patch offering. HLD: Continue atorvastatin Disposition: PCP: Dr. Ruffin Code Status: Full Code VTE Prophylaxis: Lovenox SQ Admission and Anticipated Discharge Date Admission Date: August 20, 2022 Subjective Pt seen in follow-up of syncopal episode in cardiology office as outpatient Monitor noted 7-second pause during the episode Cardiology following, and pt is now s/p pacemaker placement yesterday Currently patient is lying in bed, in NAD No acute events overnight Patient denies any chest pain, palpitations, dizziness, also denies shortness of breath or any discomfort Review of Systems Review of Systems: All systems reviewed & are unremarkable except as noted in Subjective Physical Exam Physical Exam: General:WD/WN M in NAD HEENT: head normocephalic, moist mucus membranes, EOMI CV: S1/S2, (-) M/G/R, (-) LE edema Chest: left infraclavicular pacer pocket w/dressings c/d/i Resp: Lungs CTA in all aguilar. On RA GI: Abdomen S/NT/ND, Ax4 bowel sounds, (-) CVA tenderness Musculoskeletal: 5/5 B/L UE strength, 5/5 B/L LE strength. Skin: (-) rashes , (-) erythema. Neuro/Psych: Awake alert oriented, answers appropriately, hard of hearing, moves extremities Results & Data Results & Data ([facility]) Vital Signs (Past 12 Hours) Vital Signs Temp Pulse Pulse Resp BP Pulse Ox O2 Del Method 08/24/22 07:45 63 08/23/22 22:00 65 08/24/22 04:01 36.4 C L 61 18 156/88 H 96 Room Air 08/23/22 21:15 Room Air 08/24/22 00:17 36.4 C L 66 18 131/75 94 Room Air Laboratory Results 08/24/22 08/24/22 08/24/22 Range/Units 07:19 06:58 06:58 WBC 8.14 (4.8-10.8) K/ul RBC 4.14 L (4.63-6.08) M/uL Hgb 13.3 L (14.0-18.0) g/dl Hct 38.7 L (40.1-51.0) % MCV 93.5 (80.0-100.0) fL MCH 32.1 (25.0-34.0) pg MCHC 34.4 (32.0-36.0) g/dL RDW Std Deviation 44.6 (36.4-46.3) fL RDW Coeff of Alesia 13.0 (11.5-14.5) % Plt Count 178 (130-400) K/uL MPV 9.2 L (9.4-12.4) fL Sodium 133 L (136-145) mmol/L Potassium 4.1 (3.5-5.1) mmol/L Chloride 102 (98-107) mmol/L Carbon Dioxide 24 (21-32) mmol/L Anion Gap 7 (3-11) BUN 19 (6-23) mg/dl Creatinine 1.16 (0.6-1.4) mg/dl Est Cr Clr Drug Dosing 62.0 ml/min Est GFR ( Amer) 71.5 ml/min Est GFR (Non-Af Amer) 61.7 ml/min BUN/Creatinine Ratio 16.4 (10-20) Glucose 173 H (70-99(Fasting)) mg/dl POC Glucose 161 H (70-99) mg/dl Calcium 9.2 (8.5-10.1) mg/dl Phosphorus 3.6 (2.5-4.9) mg/dl Magnesium 1.7 (1.7-2.4) mg/dl 08/23/22 08/23/22 08/23/22 Range/Units 21:22 16:30 14:58 WBC (4.8-10.8) K/ul RBC (4.63-6.08) M/uL Hgb (14.0-18.0) g/dl Hct (40.1-51.0) % MCV (80.0-100.0) fL MCH (25.0-34.0) pg MCHC (32.0-36.0) g/dL RDW Std Deviation (36.4-46.3) fL RDW Coeff of Alesia (11.5-14.5) % Plt Count (130-400) K/uL MPV (9.4-12.4) fL Sodium (136-145) mmol/L Potassium (3.5-5.1) mmol/L Chloride (98-107) mmol/L Carbon Dioxide (21-32) mmol/L Anion Gap (3-11) BUN (6-23) mg/dl Creatinine (0.6-1.4) mg/dl Est Cr Clr Drug Dosing ml/min Est GFR ( Amer) ml/min Est GFR (Non-Af Amer) ml/min BUN/Creatinine Ratio (10-20) Glucose (70-99(Fasting)) mg/dl POC Glucose 173 H 226 H 224 H (70-99) mg/dl Calcium (8.5-10.1) mg/dl Phosphorus (2.5-4.9) mg/dl Magnesium (1.7-2.4) mg/dl 08/23/22 Range/Units 11:47 WBC (4.8-10.8) K/ul RBC (4.63-6.08) M/uL Hgb (14.0-18.0) g/dl Hct (40.1-51.0) % MCV (80.0-100.0) fL MCH (25.0-34.0) pg MCHC (32.0-36.0) g/dL RDW Std Deviation (36.4-46.3) fL RDW Coeff of Alesia (11.5-14.5) % Plt Count (130-400) K/uL MPV (9.4-12.4) fL Sodium (136-145) mmol/L Potassium (3.5-5.1) mmol/L Chloride (98-107) mmol/L Carbon Dioxide (21-32) mmol/L Anion Gap (3-11) BUN (6-23) mg/dl Creatinine (0.6-1.4) mg/dl Est Cr Clr Drug Dosing ml/min Est GFR ( Amer) ml/min Est GFR (Non-Af Amer) ml/min BUN/Creatinine Ratio (10-20) Glucose (70-99(Fasting)) mg/dl POC Glucose 174 H (70-99) mg/dl Calcium (8.5-10.1) mg/dl Phosphorus (2.5-4.9) mg/dl Magnesium (1.7-2.4) mg/dl Medications Administered Current Inpatient Medications Acetaminophen (Acetaminophen 325 Mg Tab) 650 mg PO Q4H PRN PRN Reason: Pain or Fever Stop: 09/19/22 14:50 Last Admin: 08/24/22 06:31 Dose: 650 mg Hydrocodone Bitart/Acetaminophen (Hydrocodone/Acetamophen 5/325mg Tab) 1 tab PO Q6 PRN PRN Reason: Pain, Moderate Stop: 09/03/22 16:32 Al Hydrox/Mg Hydrox/Simethicone (Aluminum/Magnesium Susp 30 Ml Udc) 15 ml PO Q4H PRN PRN Reason: Dyspepsia Stop: 09/19/22 14:50 Albuterol (Albuterol Hfa 8 Gm Inhaler) 2 puffs INH Q6 PRN PRN Reason: SOB/Wheezing,cough Stop: 09/19/22 16:32 Aspirin (Aspirin 81 Mg Ectab) 81 mg PO [facility] Stop: 09/20/22 08:59 Last Admin: 08/23/22 08:52 Dose: 81 mg Atorvastatin Calcium (Atorvastatin 40 Mg Tab) 80 mg PO [facility] Stop: 09/20/22 08:59 Last Admin: 08/23/22 08:52 Dose: 80 mg Carvedilol (Carvedilol 6.25 Mg Tab) 6.25 mg PO BID [facility] Stop: 09/22/22 20:59 Last Admin: 08/23/22 21:56 Dose: 6.25 mg Cyanocobalamin (Cyanocobalamin (B-12) 500 Mcg Tablet) 1,000 mcg PO DAILY [facility] Stop: 09/20/22 08:59 Last Admin: 08/23/22 08:52 Dose: 1,000 mcg Dextrose (Dextrose 50% 50 Ml Syringe) 25 - 50 ml IV UD PRN; Protocol PRN Reason: Hypoglycemia Protocol Stop: 09/19/22 16:08 Diclofenac Sodium (Diclofenac Sod 1% Gel 100 Gm Tube) 4 gm EXT Q6 PRN; Protocol PRN Reason: pain Stop: 09/19/22 16:32 Ferrous Sulfate (Ferrous Sulfate 325 Mg Tab) 325 mg PO Q2D@0900 [facility] Stop: 09/20/22 08:59 Last Admin: 08/23/22 08:53 Dose: 325 mg Glucagon (Glucagon For Inj 1 Mg Vial) 1 mg SQ UD PRN; Protocol PRN Reason: Hypoglycemia Protocol Stop: 09/19/22 16:08 Glucose (Glucose 40% Gel 15 Gm Tube) 15 - 30 gm PO UD PRN; Protocol PRN Reason: Hypoglycemia Protocol Stop: 09/19/22 16:08 Glucose (Glucose 10 Tab/Tube) 4 - 8 tab PO UD PRN; Protocol PRN Reason: Hypoglycemia Treatment Stop: 09/19/22 16:08 Heparin Sodium (Porcine) (Heparin Sod 5,000 Unit/0.5 Ml Vial) 5,000 units SQ Q12 [facility] Stop: 09/19/22 20:59 Last Admin: 08/23/22 21:56 Dose: 5,000 units Magnesium Sulfate/Dextrose (Magnesium Sulfate / D5w) 1 gm in 100 mls @ 50 mls/hr IV ONE ONE Stop: 08/24/22 10:10 Insulin Aspart (Insulin Aspart Per Unit) 0 units SC ACHS [facility] Stop: 09/19/22 16:29 Last Admin: 08/23/22 22:07 Dose: 2 units Isosorbide Mononitrate (Isosorbide [place] Extended Rel 30 Mg Tabcr) 30 mg PO QAM [facility] Stop: 09/20/22 08:59 Last Admin: 08/23/22 08:53 Dose: 30 mg Lorazepam (Lorazepam 1 Mg Tab) 1 mg PO BID PRN PRN Reason: anxiety/insomnia Stop: 09/19/22 16:32 Last Admin: 08/23/22 22:17 Dose: 1 mg Losartan Potassium (Losartan Potassium 25 Mg Tab) 25 mg PO QAM [facility] Stop: 09/23/22 08:59 Magnesium Hydroxide (Magnesium Hydroxide Susp 30 Ml Udc) 30 ml PO Q12H PRN PRN Reason: Constipation Stop: 09/19/22 14:50 Magnesium Oxide (Magnesium Oxide 400 Mg Tab) 400 mg PO AMHS [facility] Stop: 09/19/22 20:59 Last Admin: 08/23/22 21:55 Dose: 400 mg Miscellaneous (Carbohydrates For Hypoglycemia ) 15 - 30 gm PO UD PRN PRN Reason: Hypoglycemia Protocol Stop: 09/19/22 16:08 Miscellaneous (Remove Nicoderm Patch) 1 each N/A DAILY@0859 [facility] Stop: 09/22/22 08:58 Last Admin: 08/23/22 08:51 Dose: 1 each Miscellaneous Information (Pharmacy Glycemic Mgmt Consult) 1 each N/A UD PRN PRN Reason: Consult Stop: 09/19/22 16:08 Nicotine (Nicotine 21 Mg/24 Hr Tdsy) 21 mg TD DAILY [facility] Stop: 09/21/22 21:44 Last Admin: 08/23/22 08:51 Dose: Not Given Ondansetron HCl (Ondansetron Inj 2 Mg/Ml 2 Ml Vial) 4 mg IV Q6H PRN PRN Reason: Nausea Stop: 09/19/22 14:50 Pantoprazole Sodium (Pantoprazole 40 Mg Tab) 40 mg PO DAILY [facility] Stop: 09/20/22 08:59 Last Admin: 08/23/22 08:53 Dose: 40 mg Polyethylene Glycol (Polyethylene (Miralax) 17 Gm Pack) 17 gm PO DAILY PRN PRN Reason: Constipation Stop: 09/19/22 14:50 Sacubitril/Valsartan (Valsartan/Sacubitril 26/24mg Tab) 1 tab PO BID [facility] Stop: 09/20/22 08:59 Last Admin: 08/23/22 21:55 Dose: 1 tab Sertraline HCl (Sertraline Hcl 100 Mg Tablet) 100 mg PO DAILY [facility] Stop: 09/20/22 08:59 Last Admin: 08/23/22 08:53 Dose: 100 mg Triamcinolone Acetonide (Triamcinolone Acet 0.1% Cr 15 Gm Tube) 1 appln TOP BID PRN PRN Reason: STOMACH RASH Stop: 09/19/22 16:32 Last Admin: 08/21/22 23:19 Dose: 1 appln Umeclidinium [place] (Umeclidinium [place] 62.5mcg/Blister 7 Puffs/Inhaler) 1 puffs INH DAILY [facility] Stop: 09/20/22 08:59 Last Admin: 08/23/22 08:53 Dose: 1 puffs
[2022-08-24] MEDS ORDERED: LOSARTAN POTASSIUM 25 MG TAB PO SCH (09:00)
[2022-08-24] MEDS: INSULIN ASPART PER UNIT SC SCH ×2 (09:03→12:19)
--- NOTE | 2022-08-24 09:13 | XRay Report ---
XR chest 2V PA/lateral HISTORY: Left-sided pacemaker placement. EXACT TIME ORDERED Evaluate for pneumothorax and l COMPARISON: Chest 08/21/2022. FINDINGS: There is left-sided dual-chamber pacemaker. The leads appear intact. No pneumothorax. The h eart remains borderline enlarged. A few bibasilar linear densities and mild peripheral interstitial t hickening persists. This is likely chronic. No evidence for pulmonary edema. IMPRESSION: Interval placement of a left-sided dual-chamber pacemaker. No pneumothorax. ACT 112: Negative or not required by law. Electronically signed by: Damon Cronin M.D. 08/24/2022 9:12 AM
[2022-08-24] MEDS: NICOTINE 21 MG/24 HR TDSY TD SCH (09:24)
[2022-08-24] MEDS: ASPIRIN 81 MG ECTAB PO SCH (09:25)
[2022-08-24] MEDS: MAGNESIUM OXIDE 400 MG TAB PO SCH (09:25)
[2022-08-24] MEDS: ATORVASTATIN 40 MG TAB PO SCH (09:25)
[2022-08-24] MEDS: ISOSORBIDE MONO EXTENDED REL 30 MG TABCR PO SCH (09:26)
[2022-08-24] MEDS: SERTRALINE HCL 100 MG TABLET PO SCH (09:26)
[2022-08-24] MEDS: HEPARIN SOD 5,000 UNIT/0.5 ML VIAL SQ SCH (09:26)
[2022-08-24] MEDS: carvediloL 6.25 MG TAB PO SCH (09:26)
[2022-08-24] MEDS: PANTOprazole 40 MG TAB PO SCH (09:26)
[2022-08-24] MEDS: UMECLIDINIUM BROMIDE 62.5MCG/BLISTER 7 PUFFS/INHALER INH SCH (09:26)
[2022-08-24] MEDS: CYANOCOBALAMIN (B-12) 500 MCG TABLET PO SCH (09:26)
--- NOTE | 2022-08-24 09:51 | Cardiology Progress Note ---
Date of Service August 24, 2022 Assessment & Plan (1) Syncope and collapse: (2) Acute hypotension: (3) Chronic anemia: (4) Chronic diastolic heart failure: (5) HTN (hypertension): (6) Pulmonary fibrosis: (7) Ex-smoker: (8) Restrictive lung disease: (9) COPD with emphysema: (10) H/O intracranial hemorrhage: (11) DM type 2 (diabetes mellitus, type 2): (12) CAD (coronary artery disease): Plan Sick Sinus Syndrome status post 08/23/2022 dual chamber Medtronic pacemaker impl antation by Dr. Barcenas. Stable ASCVD. Nonischemic pharmacological stress testing last on April 29, 2022. Hypertension. Moderate concentric LVH. Blood pressure well controlled. Diastolic congestive heart failure. Well compensated volume status, without the need for diuretic therapy. Asymptomatic premature ventricular contractions, quiescent, with preserved LV systolic function. Dyslipidemia. LDL cholesterol 50 on March 05, 2022. Prescribed atorvastatin 80 mg/day. Mild bilateral internal carotid artery disease. Last evaluated in December 2019; stable for many years. Iron deficiency anemia. Past intracranial hemorrhage, requiring craniotomy, 2007 Type 2 diabetes mellitus. History of tobacco abuse, emphysema, interstitial lung disease/fibrosis, hypersomnia, followed by [facility] Pulmonary Medicine. BPH with LUTS. RECOMMENDATIONS: Wound check, device clinic appointment in 7 days at the [facility]. Office aware, making arrangements. Carvedilol decreased from 12.5 mg twice a day to 6.25 mg twice a day this admission. Entresto switched to Losartan 25 mg/day this admission Carotid duplex as an outpatient. Admission and Anticipated Discharge Date Admission Date: August 20, 2022 Supervising Physician Co-Signing Physician Notes I have seen and examined the patient. I reviewed the medical record and discussed the case with Kana Somers. Patient received a pacemaker yesterday. He had an uneventful night and I believe he can be discharged today. Subjective Patient seen and examined. Chart, medications, and telemetry reviewed. Status post 08/23/2022 left subclavian dual chamber pacemaker implantation by Dr. Barcenas Chest x-ray in the AM fo 08/24/2022 looks good, without pneumothorax. No pleuritic chest pain. No angina. No new or unusual breathing issues. No palpitations. No orthopnea, PND, or peripheral edema. No subjective fevers or chills. No weakness or dizziness Telemetry: Sinus with intermittent atrial pacing. Review of Systems Review of Systems: Complete Review of Systems is as stated above, negative, or noncontributory. Physical Exam Physical Exam: General: A&Ox3. NAD. Hard of hearing. HENT: Normocephalic. Atraumatic. Eyes: PER. Conjunctiva pink, sclera clear. Neck: Bilateral carotid bruits. No JVD. No HJR. Chest: Left subclavian pacemaker dressing is clean, dry, intact. Heart: RRR. No murmur. No rub. No gallop. PMI is nondisplaced. Lungs: Clear to auscultation. Abdomen: +BS. Soft. Nontender. No masses or organomegaly. Extremities: No clubbing, cyanosis, or edema. Limited neurological examination is without focal deficits. Pulses: radial=2/4, posterior tibial=2/4. Results & Data ([facility]) Vital Signs (Past 12 Hours) Vital Signs Temp Pulse Pulse Resp BP Pulse Ox O2 Del Method 08/24/22 08:16 36.6 C 61 18 131/78 97 Room Air 08/24/22 07:45 63 08/23/22 22:00 65 08/24/22 04:01 36.4 C L 61 18 156/88 H 96 Room Air 08/24/22 00:17 36.4 C L 66 18 131/75 94 Room Air Diagnostic Findings CBC 08/24/22 Range/Units 06:58 WBC 8.14 (4.8-10.8) K/ul RBC 4.14 L (4.63-6.08) M/uL Hgb 13.3 L (14.0-18.0) g/dl Hct 38.7 L (40.1-51.0) % Plt Count 178 (130-400) K/uL Comprehensive Metabolic Panel 08/24/22 Range/Units 06:58 Sodium 133 L (136-145) mmol/L Potassium 4.1 (3.5-5.1) mmol/L Chloride 102 (98-107) mmol/L Carbon Dioxide 24 (21-32) mmol/L BUN 19 (6-23) mg/dl Creatinine 1.16 (0.6-1.4) mg/dl Glucose 173 H (70-99(Fasting)) mg/dl Calcium 9.2 (8.5-10.1) mg/dl Intake and Output 08/23/22 08/24/22 08/24/22 22:59 06:59 14:59 Intake Total 240 / 600 Output Total 500 / 700 200 / 700 Balance -260 / -100 -200 / -100 Intake: Oral 240 / 600 Output: Urine 500 / 700 200 / 700 Other: Other Intake Source sips Weight 90.1 kg Weight Measurement Method Built in [facility]
--- NOTE | 2022-08-24 10:54 | Communication Note ---
Date of Service: August 24, 2022 I personally performed a history and physical examination on the patient. Case discussed with Kana DE LEÓN. agree findings as documented in Mr. Sandra green is noted, with additions as noted below. subjective: No complaints. Feeling well, no arrhythmias on telemetry. Physical exam Temp Pulse Resp BP Pulse Ox O2 Del Method 36.6 C 61 18 131/78 97 08/24/22 08:16 08/24/22 08:16 08/24/22 08:16 08/24/22 08:16 08/24/22 08:16 08/24/22 08:16 general appearance work and oriented x3 Pulmonary: Clear to auscultation bilaterally Cardiovascular regular rhythm without murmur, no edema Neurologic no focal deficits Chest: Left infraclavicular pacemaker pocket with dressing over top. CBC 08/24/22 Range/Units 06:58 WBC 8.14 (4.8-10.8) K/ul RBC 4.14 L (4.63-6.08) M/uL Hgb 13.3 L (14.0-18.0) g/dl Hct 38.7 L (40.1-51.0) % Plt Count 178 (130-400) K/uL Comprehensive Metabolic Panel 08/24/22 Range/Units 06:58 Sodium 133 L (136-145) mmol/L Potassium 4.1 (3.5-5.1) mmol/L Chloride 102 (98-107) mmol/L Carbon Dioxide 24 (21-32) mmol/L BUN 19 (6-23) mg/dl Creatinine 1.16 (0.6-1.4) mg/dl Glucose 173 H (70-99(Fasting)) mg/dl Calcium 9.2 (8.5-10.1) mg/dl Intake and Output 08/23/22 08/24/22 08/24/22 22:59 06:59 14:59 Intake Total 240 / 600 100 / 100 Output Total 500 / 700 200 / 700 Balance -260 / -100 -200 / -100 100 / 100 Intake: IV 100 / 100 Magnesium Sulfate / D5w 1 gm In 100 / 100 100 ml @ 50 mls/hr IV ONE ONE Rx#:[id number] Oral 240 / 600 Output: Urine 500 / 700 200 / 700 Other: Other Intake Source sips Weight 90.1 kg Weight Measurement Method Built in [facility] Impression: Syncope, event correlated with sinus pauses due to sinus node dysfunctionfor which patient underwent dual-chamber rate responsive Medtronic permanent pacemaker. Plan: chest x-ray without pneumothorax. Case discussed with Dr. Barcenas of EP . Patient is stable for discharge from home on his prior to hospital dose carvedilol, isosorbide mononitrate, losartan is to replace Entresto. Arrangements will be made for device check/1 check within 7 to 10 days.
[2022-08-24] MEDS ORDERED: LANTUS PER UNIT CHARGE SQ SCH (11:30)
--- NOTE | 2022-08-24 11:43 | Discharge Summary ---
Date of Service August 24, 2022 Admission HPI Per Admitting Provider Mr. Pal is a 72-year-old male that presented to the [facility] ED as per recommendation by his outpatient trimmer machine, Dr. Banks. He was at the [facility] cardiology office this morning for follow up and MCOT placement and was noted to be hypotensive with systolic blood pressure in the 60s and was dusky ventura in appearance.Reportedly, when he arrived to the office, he had normal vital signs and appeared well. The patient has had a few admissions recently with similar presentation 05/27-05/28 (syncopal episode), 05/31-06/02 (syncopal episode) and 08/06-08/08 again. Today as a n outpatient he did receive a few chest compressions and then woke without recollection of the event. EKG in the ED today; First-degree block and nonspecific ST abnormality. No ST elevation. Patient denies anxiety or whitecoat syndrome with going to doctor offices. I asked the patient if he does experience the symptoms with having bowel movements but he denies that. He states that at times there are black dots that show up in his visual aguilar but do not appear to correlate with syncopal events. I suspect the patient becomes tense subconsciously in the clinic which may be leading to a significant vasovagal event. During my interview, he said that he became cool and clammy and felt disoriented since he was discharged from the hospital a few days ago. His states that he is often checking his for her to see if he is diaphoretic anticipating another event. He also reports a decreased appetite, but that has been occurring for a few months and has been eating. Previous EKG's have been was normal sinus rhythm with some lateral T wave flattening, a few noted have had lateral ischemic changes however does not appear that there is any ST elevation or depression. 05/28 echocardiogram performed which showed an EF of 60 to 65% with grade 1 diastolic dysfunction; this improved from 2020. Additional PMH includes diabetes type 2 insulin-dependent, COPD, CHF (EF of 60-65%), CAD s/p stent, HTN,HLD, PVD, BPH, and anxiety. The patient has his license but is no longer driving. Lactic acid is pending, blood cultures and urine culture pending however do not suspect this to be bacterial or infectious in nature. We will trend troponin levels; however first set was negative 6.2. Patient denies headache, dizziness, shortness of breath, palpitations, chest pain, nausea, vomiting, diarrhea, recent falls or trauma, or seizures. The patient will be admitted for further evaluation and specialist consultation, including Cardiology. Please see A/P for further details and information. Admission Exam Per Admitting Provider Neuro: AAOx4, PERRLA, no aphagia, memory changes, CNII-XII grossly intact HEENT: head normocephalic, moist mucus membranes CV: S1/S2, (-) M/G/R, (-) edema, cap refill < 3 seconds Resp: Lungs CTA in all aguilar. On RA GI: Abdomen S/NT/ND, Ax4 bowel sounds, (-) CVA tenderness Musculoskeletal: 5/5 B/L UE strength, 5/5 B/L LE strength. No gait disturbance Skin: (-) rashes , (-) erythema. Psych: euthymic mood Principal Diagnosis Syncope and collapse secondary to sick sinus syndrome, now status post pacemaker placement Discharge Exam General:WD/WN M in NAD HEENT: head normocephalic, moist mucus membranes, EOMI CV: S1/S2, (-) M/G/R, (-) LE edema Chest: left infraclavicular pacer pocket w/dressings c/d/i Resp: Lungs CTA in all aguilar. On RA GI: Abdomen S/NT/ND, Ax4 bowel sounds, (-) CVA tenderness Musculoskeletal: 5/5 B/L UE strength, 5/5 B/L LE strength. Skin: (-) rashes , (-) erythema. Neuro/Psych: Awake alert oriented, answers appropriately, hard of hearing, moves extremities Discharge Data Allergies Allergy/AdvReac Type Severity Reaction Status Date / Time formoterol Allergy Intermediate RASH Verified 08/06/22 16:07 simvastatin Allergy Intermediate RASH Verified 08/06/22 16:07 lisinopril Allergy Unknown Unknown Verified 08/06/22 16:07 Consultations 08/20/22 14:51 Consult Cardiology Routine 08/20/22 14:52 ED Decision to Admit Stat Procedures Performed Operation Date: 08/23/22 11:00 Actual Procedures p Pacer with A/V Leads (Dual) - Sridhar Barcenas MD Ordered Studies 08/23/22 08:15 EP Lab Images for PACS ONCE Hospital Course (1) Hypotension: (2) Syncope and collapse: (3) CAD (coronary artery disease): (4) DM type 2 (diabetes mellitus, type 2): (5) COPD (chronic obstructive pulmonary disease): (6) HLD (hyperlipidemia): Plan 72-year-old presents with recurrent syncope, found to have 7s pause during the event Hypotension: Syncope Sinus pause/ sick sinus syndrome Pt found to have 7 s pause during the event on heart monitor Now s/p dual-chamber pacemaker (08/23/22) Pt is doing well CXR reviewed by me this AM Discussed w/ Dr. Barcenas (EP) this AM - plan to DC today Cardiology consulted and following - re-started coreg at 6.25 mg bid (lower dose than home dose) - stopped entresto and started losartan 25 mg daily -Follow-up in device clinic scheduled CAD: HTN: ECHO 05/28: EF 60-65%; improved from 2020 where EF was 55-60%: Grade 1 diastolic failure Continue baby aspirin Cardiology following - med. changes as above DM2: Holding metformin while inpatient Patient takes Lantus SQ at home; continue as ordered SSI with ACHS checks A1C on 05/28 was 6.7 Glycemic Pharmacy consult to assist with Lantus management H/O COPD: continue on home inhalers CXR - without any acute process Does not require supplemental O2 at baseline Smoking cessation encouraged, Pt uses chewing tobacco. Declines Nicotine patch offering. HLD: Continue atorvastatin Total Time Total Time Spent Total Time Spent (In Minutes): 40 Discharge Plan Discharge Items Patient Disposition: Home - Self-Care Reason For Visit: SYNCOPE Discharge Diagnosis: Syncope and collapse secondary to sick sinus syndrome, now status post pacemaker placement Activity: Per Instructions section Lifting: No more than 5 pounds Lifting Comment: No raising left arm above shoulder or behind neck for 6 weeks Bathing: Keep incision dry Bathing Comment: Keep wound dry and Steri-Strips intact until follow-up next week Non-emergency contact: Primary Care Provider and Brancher Call non-emergency contact if: you have any medication questions and your symptoms worsen Follow-up/Referrals: [facility] [Other] (Date & Time 09/02/2022 2:30 PM Provider Pacer Clinic [facility] Department Cardiology, [facility] ) Eddie Ruffin MD [Primary Care Provider] - (Date & Time 08/30/2022 10:00 AM Provider Eddie Ruffin MD Department Family Practice [facility] ) Diet: Carb Consistent or DM2 and Heart Healthy Addtl Attending Provider Instructions: Follow-up with your primary care doctor, and cardiology, as scheduled. Continue taking Coreg/carvedilol, however at lower dose, 6.25 mg twice a day. Stop taking Entresto. Instead, take losartan 25 mg daily for blood pressure. Pending Studies at Discharge: No Stand-Alone Forms: My [facility], Smoking Cessation Medications and DC Order Prescriptions: New carvedilol 6.25 mg Tablet 6.25 mg PO BID 30 Days Qty: 60 0RF losartan 25 mg Tablet 25 mg PO QAM 30 Days Qty: 30 0RF Continued albuterol sulfate [Ventolin HFA] 90 mcg/actuation HFA aerosol inhaler 2 puff inhalation Q6 PRN (Reason: SOB/Wheezing,cough) Qty: 6.7 3RF Incruse Ellipta 62.5 mcg/actuation blister with device 1 inh inhalation DAILY Qty: 30 7RF mecobalamin (vitamin B12) 1,000 mcg tablet,chewable 1,000 mcg PO DAILY atorvastatin 80 mg tablet 80 mg PO QAM insulin glargine [Lantus U-100 Insulin] 100 unit/mL solution 50 unit subcut HS Rx Instructions: 50-55 isosorbide mononitrate 30 mg tablet extended release 24 hr 30 mg PO QAM pantoprazole 40 mg tablet,delayed release (DR/EC) 40 mg PO DAILY metformin 1,000 mg tablet 1,000 mg PO BIDM nitroglycerin 0.4 mg tablet, sublingual 0.4 mg sublingual DIRECTED PRN (Reason: chesst pain) Rx Instructions: place 1 tab under tongue as needed for chest pain, may repeat 3 times if chest pain continues call 911 lorazepam 1 mg tablet 1 mg PO BID PRN (Reason: anxiety/insomnia) Rx Instructions: Take at noon and bedtime hydrocodone-acetaminophen 5-325 mg tablet 1 tab PO Q6 PRN (Reason: Pain, Moderate) aspirin 81 mg Tablet,Delayed Release (Dr/Ec) 81 mg PO QAM sertraline 100 mg tablet 100 mg PO DAILY polyethylene glycol 3350 [Miralax] 17 gram/dose Powder 17 g PO DIRECTED Rx Instructions: use 1 capful up to 3 times a day for constipation triamcinolone acetonide 0.1 % Cream 1 applic TOPICAL BID PRN (Reason: STOMACH RASH) ferrous sulfate 325 mg (65 mg iron) Tablet 325 mg PO Q OTHER DAY magnesium oxide 400 mg magnesium Capsule 400 mg PO AMHS diclofenac sodium [Voltaren Arthritis Pain] 1 % Gel 4 g EXT Q6 PRN (Reason: pain) Qty: 100 0RF Discontinued carvedilol 12.5 mg tablet 12.5 mg PO BID Entresto 49-51 mg Tablet 1 tab PO BID 30 Days Qty: 60 0RF Discharge Orders: Discharge Order (Routine); Ordered 08/24/22 Ordered By: Pancho Serna/Other Patient Handouts: Managing Type 2 Diabetes Admission Data Admit Date/Time: 08/20/22 14:51 Attending Provider: Pancho Guerra Admit Provider: Pancho Guerra Primary Care Provider: Eddie Ruffin Other Providers: Lazaro Banks ; Kana Somers ; Yovanny Maki ; Pancho Guerra
--- NOTE | 2022-08-24 12:03 | Cardiology Progress Note ---
Date of Service August 24, 2022 Assessment & Plan (1) Syncope and collapse: Plan: Status post implantation of dual-chamber permanent pacemaker with left bundle pacing lead yesterday. Good function of the device. No evident complication. I recommend he keep the wound dry and Steri-Strips intact until follow-up at [facility] next week. I asked him to refrain from lifting left arm above the shoulder behind the neck for 6 weeks. Admission and Anticipated Discharge Date Admission Date: August 20, 2022 Subjective The patient did not describe significant discomfort at the device implant site. Physical Exam Physical Exam: Implant site appears well healed. No significant ecchymosis, drainage, erythema or hematoma Results & Data ([facility]) Vital Signs (Past 12 Hours) Vital Signs Temp Pulse Pulse Resp BP Pulse Ox O2 Del Method 08/24/22 11:05 36.6 C 65 18 113/66 96 Room Air 08/24/22 08:16 36.6 C 61 18 131/78 97 Room Air 08/24/22 07:45 63 08/24/22 04:01 36.4 C L 61 18 156/88 H 96 Room Air 08/24/22 00:17 36.4 C L 66 18 131/75 94 Room Air Diagnostic Findings Chest x-ray this morning demonstrated good lead position without evidence of pneumothorax. I performed a complete device interrogation of his dual-chamber pacemaker. Normal sensing threshold on the atrial lead. Normal threshold on the ventricular lead in both configurations. Sensing in the bipolar configuration was somewhat lower than yesterday, but good in the unipolar configuration. I programmed his ventricular sensing to unipolar for the time being.
--- NOTE | 2022-08-24 13:51 | Pharmacy Report ---
Pharmacy Glycemic Short Note 2 - Date of Service August 24, 2022 - Glycemic Short BSG Results (Last 24 hours): 08/23/22 08/23/22 08/23/22 11:47 14:58 16:30 Glucose POC Glucose 174 H 224 H 226 H 08/23/22 08/24/22 08/24/22 21:22 06:58 07:19 Glucose 173 H POC Glucose 173 H 161 H 08/24/22 11:22 Glucose POC Glucose 207 H OUTPATIENT ANTIDIABETIC REGIMEN: * Lantus 50 units SC HS * Metformin 1 g PO BIDM HbA1c: 6.7% (05/28/22) ASSESSMENT: 07/24/23 * Yesterday, BSG was 163 - 226 mg/dL. FBSG today was 161 mg/dL * Total insulin yesterday was 51 units (of which 30 units was basal) * To mimick nighttime home basal administration time, Lantus will be transitioned to nighttime starting tomorrow * Tightened CF and Carb ratio 07/23/23 * DM is a 72 year old male who presented to ED via EMS yesterday afternoon following recurrent syncopal episode with collapse at cardiology clinic * Second witnessed episode of syncope within past 2 weeks * Patient did not require any insulin yesterday, BSGs ranging 93-160 mg/dL yesterday * Originally NPO after midnight, now ordered a diet (BSGs trending up 104 -> 202 mg/dL) * Plan is for elective pacemaker placement on Tuesday (will monitor for changes in diet orders) PLAN FOR INPATIENT GLYCEMIC CONTROL: * Hold outpatient oral diabetes medications * Basal insulin * Lantus 30 units SC at lunch time today and HS starting tomorrow * Bolus insulin * NovoLog per scale ACHS or Q6hrs while NPO * Goal Range: Low 110 mg/dL - High 140 mg/dL * Correction Factor: 20 mg/dL/unit * Nutritional / Prandial insulin per carb ratio of 1 unit per 6 grams CHO consumed
== END 2022-08-24 13:48 | disposition home or self-care (01) | DRG 243 ==
LOC: ED 14:02 → 2S 14:51

== ENCOUNTER 2024-07-27 10:13 | Inpatient (IN) ==
[2024-07-27] MEDS ORDERED: MoRPHine SULFATE 2 MG/ML CARP IV PRN (10:21)
--- NOTE | 2024-07-27 10:27 | Emergency Department Note ---
Impression & Plan Fracture, ribs, Fall, Trauma ED Provider Note NAME: HANNAH ELLIS AGE: 73 SEX: M : 1950 ARRIVES VIA: Ambulance INFORMANT: Patient ED PROVIDER(S): Camilo Denis DO CHIEF COMPLAINT: Fall HPI: Patient is a 73-year-old male with a past medical history of anxiety, hypertension, pulmonary fibrosis, hypotension GERD, CAD who presents to the ER for a fall. He was going to the bathroom last night and lost his balance and fell and hit the toilet on his left ribs. He is complaining of pain with breathing as well as movement. Denies any headache or change in vision. Denies any belly pain, nausea, vomiting, or diarrhea. No dysuria, urgency, or frequency. No other exacerbating or remitting factors. ADDITIONAL HISTORY OBTAINED: Per HPI Chronic Medical/Social Conditions Affecting Care: Per HPI PAST MEDICAL HISTORY:See Below PAST SURGICAL HISTORY:See Below FAMILY HISTORY:See Below SOCIAL HISTORY:See Below HOME MEDICATIONS:See Below ALLERGIES:See Below VITALS:See Below PHYSICAL EXAMINATION: GENERAL: alert, well appearing, well nourished, no distress, non-toxic HEAD: normal cephalic, atraumatic EYE EXAM: normal conjunctiva, PERRL and EOM's grossly intact OROPHARYNX: no exudate, no erythema, lips, buccal mucosa, and tongue normal and mucous membranes are moist NECK: supple, no nuchal rigidity, no adenopathy, non-tender CHEST: Tenderness over the left lateral chest wall throughout the ribs 5 and inferiorly LUNGS: clear to auscultation. Normal chest wall mechanics HEART: no murmurs, S1 normal and S2 normal ABDOMEN: abdomen soft, non-tender, normo-active bowel sounds, no masses, no rebound or guarding. PELVIS: stable to compression anteriorly and posteriorly BACK: Back is symmetrical on inspection and there is no deformity, no midline tenderness, no CVA tenderness. UPPER EXTREMITIES: full active and passive range of motion of all joints without tenderness to palpation LOWER EXTREMITIES: full active and passive range of motion of all joints without tenderness to palpation NEURO EXAM: Normal sensorium, cranial nerves II-XII grossly intact, normal speech, no gross weakness of arms, no gross weakness of legs. GCS: 15. MEDICAL DECISION MAKING: Patient is a 73-year-old male who presents to the ER for the above-stated complaint. Per family his present at bedside he has been having issues with balance since the previous brain surgery. IV was established and blood work was obtained. Labs show no significant leukocytosis or anemia. INR unremarkable. BMP with mild hyponatremia 134. Glucose slightly up at 200. LFTs bilirubin were unremarkable. Lipase was normal. CT of the head, cervical spine, chest abdomen pelvis shows 3 rib fractures without a hemo or pneumothorax. Patient was given IV narcotics. He was updated bedside. With the rib fractures and was discussed with the hospitalist for further evaluation management treatment. Consults/Care Managements Discussions: Per [facility] Triage Nursing notes reviewed. Limited review of prior medical records performed Vital Signs: reviewed and remarkable for HTN Differential diagnosis: Differential diagnoses include major intracranial, cervical, spinal, thoracic, abdominal, pelvic and neurologic injury. Fracture, contusion, sprain, strain, laceration, abrasions included as well. ER treatment provided: See below Diagnostics interpreted by me include EKG and cardiac monitoring as listed below: -Cardiac Monitoring: An order was placed for continuous cardiac monitoring. The monitor shows a rate of 70 with sinus rhythm. -ECG: Sinus rhythm rate 70 Normal axis No PVCs QTc 432 -Laboratory studies:Interpreted by me as stated above in MDM and shown below. Imaging studies: Xrays: As interpreted by me: Portable AP upright 1 view of the chest shows no focal M-Trate CTs show: CT trauma scan as described above Procedures:none Critical Care: None Past Med/Surg History Problem List Trauma (Acute) Fall (Acute) Fracture, ribs (Acute) Syncope and collapse (Acute) Acute hypotension (Acute) HLD (hyperlipidemia) Hypotension Chronic anemia Anxiety Chronic diastolic heart failure HTN (hypertension) Hypersomnia Pulmonary fibrosis Ex-smoker Obesity Restrictive lung disease COPD with emphysema Abnormal finding on CT scan ASCVD (arteriosclerotic cardiovascular disease) Chronic constipation Chronic 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 Elevated lactic acid level (Acute) Hypotension Ribs, multiple fractures (Acute) Acute chest wall pain (Acute) COPD (chronic obstructive pulmonary disease) (Acute) Vertigo (Acute) H/O intracranial hemorrhage (Acute) Fall (Acute) Coronary artery disease, occlusive (Chronic) "s/p stent" Esophagitis due to drug (Acute) Odynophagia (Acute) GERD (gastroesophageal reflux disease) (Chronic) COPD exacerbation (Acute) DM type 2 (diabetes mellitus, type 2) (Chronic) CAD (coronary artery disease) (Chronic) Tobacco use disorder (Chronic) Mood disorder (Chronic) Lumbago (Chronic) 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) BPH (benign prostatic hypertrophy) (Chronic) H/O subarachnoid hemorrhage (Chronic) Stented coronary artery (Chronic) H/O inguinal hernia repair (Chronic) S/P cardiac cath (Chronic) History of carpal tunnel surgery (Chronic) Medical History HLD (hyperlipidemia) Hypotension Chronic diastolic heart failure Syncope and collapse Chronic constipation Chronic 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 Hypotension Ribs, multiple fractures Syncope Syncope and collapse Hematoma of cerebellum Hypomagnesemia H/O subarachnoid hemorrhage BPH (benign prostatic hypertrophy) Sensorineural hearing loss of both ears Lumbago Mood disorder Tobacco use disorder CAD (coronary artery disease) DM type 2 (diabetes mellitus, type 2) GERD (gastroesophageal reflux disease) Coronary artery disease, occlusive Surgical History S/P total knee arthroplasty History of carpal tunnel surgery S/P cardiac cath H/O inguinal hernia repair Stented coronary artery Family History Other COPD (chronic obstructive pulmonary disease) Diabetes Heart disease Rheumatoid arthritis Social History Smoking Status: Current every day smoker Tobacco Type: Smokeless Tobacco (Dip or Chew) Second Hand Exposure: No; Do You Dip or Chew Tobacco: Yes; Hx Alcohol Use: No Hx Substance Use: No Preferred Language: Iraqi Communication Ability: Effective Firebreak Cutter Required: No Beliefs That Will Affect Care: None Current Living Situation: Spouse Feels Safe at Home: Yes Assistive Devices: Cane and Walker Allergies Allergies Allergy/AdvReac Type Severity Reaction Status Date / Time formoterol Allergy Intermediate RASH Verified 07/27/24 12:42 simvastatin Allergy Intermediate RASH Verified 07/27/24 12:42 Penicillins Allergy Mild Verified 07/27/24 12:42 lisinopril Allergy Unknown Unknown Verified 07/27/24 12:42 Home Meds Home Medications Medication Instructions Recorded Confirmed insulin glargine 100 unit/mL 50 - 55 unit subcut HS 02/09/19 07/27/24 subcutaneous solution (Lantus U-100 Insulin) isosorbide mononitrate 30 mg 30 mg PO QAM 02/09/19 07/27/24 tablet,extended release 24 hr lorazepam 1 mg tablet 1 mg PO BID PRN anxiety/insomnia 02/09/19 07/27/24 metformin 1,000 mg tablet 1,000 mg PO BIDM 02/09/19 07/27/24 nitroglycerin 0.4 mg sublingual 0.4 mg sublingual DIRECTED PRN 02/09/19 07/27/24 tablet chesst pain pantoprazole 40 mg tablet,delayed 40 mg PO DAILY 02/09/19 07/27/24 release aspirin 81 mg tablet,delayed 81 mg PO QAM 03/08/19 07/27/24 release mecobalamin (vitamin B12) 1,000 1,000 mcg PO DAILY 09/25/20 07/27/24 mcg chewable tablet polyethylene glycol 3350 17 17 g PO DIRECTED 02/01/21 07/27/24 gram/dose oral powder (Miralax) sertraline 100 mg tablet 150 mg PO DAILY 02/01/21 07/27/24 ferrous sulfate 325 mg (65 mg 325 mg PO Q OTHER DAY 05/27/22 07/27/24 iron) tablet magnesium oxide 400 mg PO AMHS 05/27/22 07/27/24 triamcinolone acetonide 0.1 % 1 applic topical BID PRN STOMACH 08/06/22 07/27/24 topical cream RASH atorvastatin 20 mg tablet 20 mg PO DAILY 07/27/24 07/27/24 carvedilol 3.125 mg tablet 3.125 mg PO BID 07/27/24 07/27/24 glipizide 10 mg tablet 0 mg PO DAILY 07/27/24 07/27/24 losartan 25 mg tablet 25 mg PO BID 07/27/24 07/27/24 tamsulosin 0.4 mg capsule 0.4 mg PO DAILY 07/27/24 07/27/24 umeclidinium 62.5 mcg/actuation 1 inh inhalation QAM 07/27/24 07/27/24 blister powder for inhalation (Incruse Ellipta) Previous Rx's Medication Instructions Recorded diclofenac sodium 1 % topical gel 4 g EXT Q6 PRN pain #100 grams 05/28/22 (Voltaren Arthritis Pain) albuterol sulfate 90 mcg/actuation 2 puff inhalation Q6 PRN 06/08/22 aerosol inhaler (Ventolin HFA) SOB/Wheezing,cough #6.7 grams Results & Data (ED) Vital Signs Vital Signs - 24 hr 07/27/24 10:20 07/27/24 10:23 07/27/24 10:51 Temperature 36.6 C Temperature Source Oral Pulse Rate 71 72 68 Pulse Rate [Right Finger] Pulse Rate from SpO2 Sensor Respiratory Rate 17 19 Respiratory Effort / Characteristics Non-Labored Spontaneous Respiratory Depth Normal Respiratory Pattern Regular Blood Pressure 196/105 H 171/85 H Blood Pressure [Right Arm] Blood Pressure Mean 135 113 Blood Pressure Mean [Right Arm] Pulse Oximetry 97 96 Oxygen Delivery Method Room Air Room Air Sepsis Recent Fever Within 48 Hours No Sepsis New/Unexplained Change in Mental Status N/A Sepsis Action Taken by Nursing No Action Required 07/27/24 11:26 07/27/24 11:30 07/27/24 11:48 Temperature Temperature Source Pulse Rate 62 Pulse Rate [Right Finger] 64 Pulse Rate from SpO2 Sensor 63 Respiratory Rate 20 14 Respiratory Effort / Characteristics Non-Labored Respiratory Depth Normal Respiratory Pattern Blood Pressure 137/74 Blood Pressure [Right Arm] 161/85 H Blood Pressure Mean 99 Blood Pressure Mean [Right Arm] 110 Pulse Oximetry 91 92 Oxygen Delivery Method Room Air Room Air Sepsis Recent Fever Within 48 Hours Sepsis New/Unexplained Change in Mental Status Sepsis Action Taken by Nursing 07/27/24 11:54 07/27/24 12:00 Temperature Temperature Source Pulse Rate 62 Pulse Rate [Right Finger] Pulse Rate from SpO2 Sensor 61 Respiratory Rate 15 Respiratory Effort / Characteristics Respiratory Depth Respiratory Pattern Blood Pressure 112/75 Blood Pressure [Right Arm] Blood Pressure Mean 85 Blood Pressure Mean [Right Arm] Pulse Oximetry 92 Oxygen Delivery Method Room Air Sepsis Recent Fever Within 48 Hours Sepsis New/Unexplained Change in Mental Status Sepsis Action Taken by Nursing Laboratory Data 07/27/24 10:28 07/27/24 10:28 Lab Results 07/27/24 07/27/24 Range/Units 10: 10:35 WBC 9.50 (4.8-10.8) K/ul RBC 4.45 L (4.70-6.10) M/uL Hgb 14.0 (14.0-18.0) g/dl POC Hgb 14.6 (14.0-18.0) g/dl Hct 41.0 L (42.0-52.0) % POC Hct 43 (42-52) % MCV 92.1 (80.0-100.0) fL MCH 31.5 (25.0-34.0) pg MCHC 34.1 (32.0-36.0) g/dL RDW Std Deviation 50.4 H (36.4-46.3) fL RDW Coeff of Alesia 14.8 H (11.5-14.5) % Plt Count 184 (130-400) K/uL MPV 9.0 L (9.4-12.4) fL Immature Gran % (Auto) 0.7 % Neut % (Auto) 65.4 % Lymph % (Auto) 16.4 % Kay % (Auto) 10.2 % Eos % (Auto) 6.2 % Baso % (Auto) 1.1 % Neut # (Auto) 6.21 (1.40-6.50) K/uL Lymph # (Auto) 1.56 (1.20-3.40) K/uL Kay # (Auto) 0.97 H (0.11-0.59) K/uL Eos # (Auto) 0.59 H (0.00-0.50) K/uL Baso # (Auto) 0.10 (0.00-0.20) K/uL Immature Gran # (Auto) 0.07 (0.01-0.20) K/uL PT 10.9 (9.0-12.0) Seconds INR 1.0 (0.9-1.1) APTT 28 (21-31) Seconds PTT Ratio 1.0 POC Sodium 135 (135-144) mmol/L Sodium 134 L (136-145) mmol/L POC Potassium 4.6 (3.3-5.0) mmol/L Potassium 4.6 (3.5-5.1) mmol/L POC Chloride 99 L (101-112) mmol/L Chloride 99 (98-107) mmol/L Carbon Dioxide 26 (21-32) mmol/L POC Total CO2 26 (24-31) mmol/L Anion Gap 9 (3-11) POC Anion Gap 16.0 (16-25) mmol/L POC BUN 18 (7-18) mg/dl BUN 17 (6-23) mg/dl Creatinine 1.29 (0.6-1.4) mg/dl POC Creatinine 1.3 (0.6-1.3) mg/dl Est Cr Clr Drug Dosing 55.9 ml/min eGFR 57.82 BUN/Creatinine Ratio 13.2 (10-20) Glucose 195 H (70-99(Fasting)) mg/dl POC Glucose (other) 190 H (70-99) mg/dl Calcium 10.1 (8.6-10.3) mg/dl POC Ioniz Calcium Amando 1.22 (1.12-1.32) mmol/l Total Bilirubin 0.5 (0.2-1.0) mg/dl AST 23 (13-39) U/L ALT 27 (7-52) U/L Alkaline Phosphatase 78 (34-104) U/L Total Protein 7.7 (6.0-8.3) gm/dl Albumin 4.5 (3.4-5.0) gm/dl Globulin 3.2 (2.5-4.0) gm/dl Albumin/Globulin Ratio 1.4 (0.9-2) Lipase 23 (11-82) U/L Administered Medications Acetaminophen (Acetaminophen 325 Mg Tab) 650 mg PO Q4H PRN PRN Reason: Pain or Fever Stop: 08/26/24 12:46 Last Admin: 07/27/24 13:14 Dose: 650 mg Documented By: EMRE Lidocaine (Lidocaine 5% 1 Patch) 1 patch TD QAM [facility] Stop: 08/26/24 12:46 Last Admin: 07/27/24 14:02 Dose: 1 patch Documented By: EMRE Discontinued Medications Ioversol (Optiray 320 100ml) 94 ml IV ONCE ONE Stop: 07/27/24 11:16 Last Admin: 07/27/24 11:16 Dose: 94 ml Documented By: KRYSTINA Morphine Sulfate (Morphine Sulfate 4 Mg/Ml 1 Ml Carp\\Vial) 4 mg IV Q1H PRN PRN Reason: Severe Pain (Rating 7,8,9,10) Stop: 08/10/24 10:20 Last Admin: 07/27/24 10:44 Dose: 4 mg Documented By: [facility] Imaging Data Radiologist's Impression: Chest X-Ray 07/27/24 10:21 XR chest 1V portable HISTORY: 73 years-old Male Trauma acute chest trauma COMPARISON: 08/24/2022 TECHNIQUE: AP view the chest FINDINGS: Cardiac silhouette is enlarged. Dual lead left subclavian pacer. Pulmonary vascular congestion with chronic interstitial coarsening. No pneumothorax or large pleural effusion. Degenerative changes of the shoulders and spine. IMPRESSION: 1. Cardiomegaly with pulmonary vascular congestion. 2. Chronic interstitial lung disease. ACT 112: Negative or not required by law. The above report was generated using voice recognition software. It may contain grammatical, syntax or spelling errors. Electronically signed by: Jacob Cleveland M.D. 07/27/2024 11:10 AM Abdomen/Pelvis CT 07/27/24 10:22 CT abd pelvis IV con only CLINICAL HISTORY: Trauma TECHNIQUE: Helical axial images of the abdomen and pelvis were obtained and displayed. Automated dose lowering techniques and/or adjustment according to patient size were utilized for this exam. This exam was performed with intravenous contrast. COMPARISON: Comparison is made to CT abdomen pelvis 06/05/2021 FINDINGS: Lower chest: For findings above the diaphragm, please see CT chest performed same day. Liver: Hepatic steatosis is noted. Gallbladder and biliary tree: No calcified gallstones. Normal caliber wall. No intra- or extrahepatic biliary ductal dilation. Pancreas: Unremarkable, no focal lesions. Spleen: Unremarkable. Adrenals: Unremarkable. Kidneys and ureters: Left renal cyst is seen. Bladder: Diffuse homogeneous wall thickening is seen. Reproductive organs: Prostatomegaly is seen. Bowel: Diverticulosis is seen without diverticulitis. The appendix is normal. Lymph nodes Retroperitoneal: Unremarkable. Pelvic: Unremarkable. Mesenteric: Unremarkable. Peritoneum: Normal. Vessels: Atherosclerotic calcifications are seen. Abdominal wall: Postsurgical changes are seen in the bilateral inguinal canals. Bones: Degenerative changes in the visualized spine. Subacute healing left anterior rib fractures are seen at the ninth and eighth ribs. IMPRESSION: 1. No acute abnormalities are seen. Subacute left rib fractures. Please see CT chest performed same day for rib fractures. 2. Hepatic steatosis. 3. Diverticulosis without diverticulitis. ACT 112: Negative or not required by law. Electronically signed by: Luther Marcial M.D. 07/27/2024 11:[address] 07/27/24 10:22 CT cervical spine wo con CT DOSE: 3497.5 mGy.cm CLINICAL HISTORY: 73 years-old Male with Trauma. Acute chest and neck pain status post fall COMPARISON: MRI cervical spine 10/21/2023, MRI cervical spine 10/21/2023. TECHNIQUE: Multiple axial CT images of the cervical spine were obtained without contrast. A dose lowering technique was utilized adhering to the principles of ALARA. FINDINGS: Straightening of the normal cervical lordosis with mild to moderate degenerative changes redemonstrated. No acute fracture, subluxation suspicious bone lesions are identified. Suboptimal evaluation of the central canal and neural foramen by CT technique. Postoperative changes of suboccipital craniectomy redemonstrated. The cervical soft tissues appear unremarkable. Atherosclerosis of the carotid bulbs. Cerebellar encephalomalacia again noted. Head CT dictated separately. The visualized lung apices appear clear. IMPRESSION: No acute cervical spine fracture or subluxation. ACT 112: Negative or not required by law. The above report was generated using voice recognition software. It may contain grammatical, syntax or spelling errors. Electronically signed by: Jacob Cleveland M.D. 07/27/2024 11:[address] 07/27/24 10:22 CT chest diagnostic w con CLINICAL HISTORY: Trauma TECHNIQUE: Multidetector row helical CT of the chest was performed with intravenous contrast. Coronal and sagittal reformations were obtained. Automated dose lowering techniques and/or adjustment according to patient size were utilized for this exam. Comparison: Comparison is made to CT chest August 06, 2022 FINDINGS: Lungs and pleura: Peripheral interstitial thickening is seen with some paraseptal emphysema. Heart and pericardium: Aortic valvular calcifications are seen. Vessels: Moderate atherosclerotic changes in the aorta and coronary arteries. Mediastinum and sid: Subcentimeter lymph nodes are seen. Chest wall and lower neck: Small thyroid nodules are noted which do not require follow-up by ACR criteria. Abdomen: Unremarkable. Bones: There are acute fractures of the posterolateral fifth, sixth and seventh ribs. Possible nondisplaced fourth rib fracture as well. Degenerative changes in the spine. Congenital foramen of the sternum is noted. IMPRESSION: 1. Acute fractures of the posterior lateral fifth, sixth, and seventh ribs. No pneumothorax is seen. 2. Interstitial lung disease, similar to prior exam. ACT 112: Negative or not required by law. Electronically signed by: Luther Marcial M.D. 07/27/2024 11:[address] 07/27/24 10:22 CT head/brain wo con CLINICAL HISTORY: trauma Technique: Contiguous axial CT images of the head were acquired from the base of the skull to the vertex without intravenous contrast administration. Images were viewed in brain, subdural and bone windows. Automated dose lowering techniques and/or adjustment according to patient size were utilized for this exam. Comparison: Comparison is made to the head on 623 Findings: Areas of decreased attenuation are present in the periventricular and subcortical white matter bilaterally consistent with small vessel ischemic disease. Generalized cerebral atrophy with commensurate enlargement of the ventricles, sulci, and cisterns is also present. There is no acute intracranial hemorrhage or evidence of acute territorial infarction. No shift of the midline structures, mass effect, or extra-axial abnormalities are shown. Atherosclerotic calcifications are present in the intracranial segments of the internal carotid arteries. Imaged portions of the paranasal sinuses and mastoid air cells are clear. The orbits appear normal. Old posterior calvarial defect is seen. Impression: No acute intracranial hemorrhage, skull fractures, or scalp swelling. ACT 112: Negative or not required by law. Electronically signed by: Luther Marcial M.D. 07/27/2024 11:45 AM Discharge Plan Visit Data Stated Complaint: FALL, RIB & CHEST PAIN ED Provider: Camilo Denis Discharge Problem: Fracture, ribs, Fall, Trauma Patient Disposition: Admitted As Inpatient Discharge Instructions Interventions: ED Discharge Assessment Last Done: 07/27/24 12:48 Discharge Problem: Fracture, ribs Qualifiers: Encounter type: initial encounter Fracture type: closed Laterality: unspecified laterality Qualified Code(s): S22.49XA - Multiple fractures of ribs, unspecified side, initial encounter for closed fracture Fall Qualifiers: Encounter type: initial encounter Qualified Code(s): W19.XXXA - Unspecified fall, initial encounter
[2024-07-27] MEDS: MoRPHine SULFATE 4 MG/ML 1 ML CARP\\VIAL IV PRN ×2 (10:44→14:08)
[2024-07-27 10:47] LABS: Basophils % (auto) 1.1 %; Eosinophils # (auto) 0.59 K/uL (0.00-0.50); Eosinophils % (auto) 6.2 %; Immature Granulocytes # (auto) 0.07 K/uL (0.01-0.20); Immature Granulocytes % (auto) 0.7 %; Lymphocytes # (auto) 1.56 K/uL (1.20-3.40); Lymphocytes % (auto) 16.4 %; Mean Corpuscular Hemoglobin 31.5 pg (25.0-34.0); Mean Corpuscular Hgb Conc 34.1 g/dL (32.0-36.0); Mean Corpuscular Volume 92.1 fL (80.0-100.0); Monocytes # (auto) 0.97 K/uL (0.11-0.59); Monocytes % (auto) 10.2 %; Neutrophils # (auto) 6.21 K/uL (1.40-6.50); Neutrophils % (auto) 65.4 %; Platelet Count 184 K/uL (130-400); RDW Coefficient of Variation 14.8 % (11.5-14.5); RDW Standard Deviation 50.4 fL (36.4-46.3); Red Blood Count 4.45 M/uL (4.70-6.10)
[2024-07-27 10:50] LABS: iSTAT Creatinine 1.3 mg/dl (0.6-1.3); iSTAT Hemoglobin 14.6 g/dl (14.0-18.0); iSTAT Ionized Calcium 1.22 mmol/l (1.12-1.32); iSTAT Potassium 4.6 mmol/L (3.3-5.0)
[2024-07-27 11:07] LABS: Albumin Globulin Ratio 1.4 (0.9-2); Albumin Level 4.5 gm/dl (3.4-5.0); BUN Creatinine Ratio 13.2 (10-20); Bilirubin,Total 0.5 mg/dl (0.2-1.0); Calcium 10.1 mg/dl (8.6-10.3); Creatinine Clr Calc Pharmacy 55.9 ml/min; Globulin 3.2 gm/dl (2.5-4.0); Potassium 4.6 mmol/L (3.5-5.1); Total Protein 7.7 gm/dl (6.0-8.3)
[2024-07-27 11:11] LABS: Partial Thromboplastin Time 28 Seconds (21-31); Prothrombin Time 10.9 Seconds (9.0-12.0)
--- NOTE | 2024-07-27 11:11 | XRay Report ---
XR chest 1V portable HISTORY: 73 years-old Male Trauma acute chest trauma COMPARISON: 08/24/2022 TECHNIQUE: AP view the chest FINDINGS: Cardiac silhouette is enlarged. Dual lead left subclavian pacer. Pulmonary vascular congestion with c hronic interstitial coarsening. No pneumothorax or large pleural effusion. Degenerative changes of th e shoulders and spine. IMPRESSION: 1. Cardiomegaly with pulmonary vascular congestion. 2. Chronic interstitial lung disease. ACT 112: Negative or not required by law. The above report was generated using voice recognition software. It may contain grammatical, syntax o r spelling errors. Electronically signed by: Jacob Cleveland M.D. 07/27/2024 11:10 AM
[2024-07-27] MEDS: OPTIRAY 320 100ml IV ONE (11:16)
--- NOTE | 2024-07-27 11:46 | CT Scan Report ---
CT head/brain wo con CLINICAL HISTORY: trauma Technique: Contiguous axial CT images of the head were acquired from the base of the skull to the gabby liseth without intravenous contrast administration. Images were viewed in brain, subdural and bone [facility]. Automated dose lowering techniques and/or adjustment according to patient size were utilized for this exam. Comparison: Comparison is made to the head on 623 Findings: Areas of decreased attenuation are present in the periventricular and subcortical white matter bilate rally consistent with small vessel ischemic disease. Generalized cerebral atrophy with commensurate e nlargement of the ventricles, sulci, and cisterns is also present. There is no acute intracranial hem orrhage or evidence of acute territorial infarction. No shift of the midline structures, mass effect, or extra-axial abnormalities are shown. Atherosclerotic calcifications are present in the intracran ial segments of the internal carotid arteries. Imaged portions of the paranasal sinuses and mastoid air cells are clear. The orbits appear normal. Old posterior calvarial defect is seen. Impression: No acute intracranial hemorrhage, skull fractures, or scalp swelling. ACT 112: Negative or not required by law. Electronically signed by: Luther Marcial M.D. 07/27/2024 11:45 AM
--- NOTE | 2024-07-27 11:50 | CT Scan Report ---
CT cervical spine wo con CT DOSE: 3497.5 mGy.cm CLINICAL HISTORY: 73 years-old Male with Trauma. Acute chest and neck pain status post fall COMPARISON: MRI cervical spine 10/21/2023, MRI cervical spine 10/21/2023. TECHNIQUE: Multiple axial CT images of the cervical spine were obtained without contrast. A dose low ering technique was utilized adhering to the principles of ALARA. FINDINGS: Straightening of the normal cervical lordosis with mild to moderate degenerative changes re demonstrated. No acute fracture, subluxation suspicious bone lesions are identified. Suboptimal evalu ation of the central canal and neural foramen by CT technique. Postoperative changes of suboccipital craniectomy redemonstrated. The cervical soft tissues appear un remarkable. Atherosclerosis of the carotid bulbs. Cerebellar encephalomalacia again noted. Head CT di ctated separately. The visualized lung apices appear clear. IMPRESSION: No acute cervical spine fracture or subluxation. ACT 112: Negative or not required by law. The above report was generated using voice recognition software. It may contain grammatical, syntax o r spelling errors. Electronically signed by: Jacob Cleveland M.D. 07/27/2024 11:48 AM
--- NOTE | 2024-07-27 11:52 | CT Scan Report ---
CT chest diagnostic w con CLINICAL HISTORY: Trauma TECHNIQUE: Multidetector row helical CT of the chest was performed with intravenous contrast. Coronal and sagittal reformations were obtained. Automated dose lowering techniques and/or adjustment accord ing to patient size were utilized for this exam. Comparison: Comparison is made to CT chest August 06, 2022 FINDINGS: Lungs and pleura: Peripheral interstitial thickening is seen with some paraseptal emphysema. Heart and pericardium: Aortic valvular calcifications are seen. Vessels: Moderate atherosclerotic changes in the aorta and coronary arteries. Mediastinum and sid: Subcentimeter lymph nodes are seen. Chest wall and lower neck: Small thyroid nodules are noted which do not require follow-up by ACR davide roach. Abdomen: Unremarkable. Bones: There are acute fractures of the posterolateral fifth, sixth and seventh ribs. Possible nondis placed fourth rib fracture as well. Degenerative changes in the spine. Congenital foramen of the ster num is noted. IMPRESSION: 1. Acute fractures of the posterior lateral fifth, sixth, and seventh ribs. No pneumothorax is seen. 2. Interstitial lung disease, similar to prior exam. ACT 112: Negative or not required by law. Electronically signed by: Luther Marcial M.D. 07/27/2024 11:51 AM
--- NOTE | 2024-07-27 11:59 | CT Scan Report ---
CT abd pelvis IV con only CLINICAL HISTORY: Trauma TECHNIQUE: Helical axial images of the abdomen and pelvis were obtained and displayed. Automated dose lowering techniques and/or adjustment according to patient size were utilized for this exam. This e xam was performed with intravenous contrast. COMPARISON: Comparison is made to CT abdomen pelvis 06/05/2021 FINDINGS: Lower chest: For findings above the diaphragm, please see CT chest performed same day. Liver: Hepatic steatosis is noted. Gallbladder and biliary tree: No calcified gallstones. Normal caliber wall. No intra- or extrahepatic biliary ductal dilation. Pancreas: Unremarkable, no focal lesions. Spleen: Unremarkable. Adrenals: Unremarkable. Kidneys and ureters: Left renal cyst is seen. Bladder: Diffuse homogeneous wall thickening is seen. Reproductive organs: Prostatomegaly is seen. Bowel: Diverticulosis is seen without diverticulitis. The appendix is normal. Lymph nodes Retroperitoneal: Unremarkable. Pelvic: Unremarkable. Mesenteric: Unremarkable. Peritoneum: Normal. Vessels: Atherosclerotic calcifications are seen. Abdominal wall: Postsurgical changes are seen in the bilateral inguinal canals. Bones: Degenerative changes in the visualized spine. Subacute healing left anterior rib fractures are seen at the ninth and eighth ribs. IMPRESSION: 1. No acute abnormalities are seen. Subacute left rib fractures. Please see CT chest performed same day for rib fractures. 2. Hepatic steatosis. 3. Diverticulosis without diverticulitis. ACT 112: Negative or not required by law. Electronically signed by: Luther Marcial M.D. 07/27/2024 11:57 AM
[2024-07-27] MEDS: ACETAMINOPHEN 325 MG TAB PO PRN (13:14)
--- OUTSIDE RECORDS SUMMARY | 2024-07-27 13:14 | External Medical Summary | Summary of Care ---
Author Name Unknown Organization [facility] Address [address] [place] [address] Phone [phone] Care Team Providers Care Ctrs Name Role Phone Eddie Ruffin MD Primary Care Provider + Reason for Visit * Reason Comments Return Visit 3 month return-open area on left ankle/heel Encounter Details Date Type Department Care Team (Late st Contact Info) Description 07/17/2024 3:20 PM EST Office Visit Family [facility] [address] [place] [id number] Eddie Ruffin MD [address] [place] [id number] HTN, goal below 140/90*; DM type 2 nursing care encounter (HCC); Hypertensive heart disease with chronic diastolic congestive heart failure (HCC); Sore on ankle Allergies Active Allergy Reactions Criticality Noted Date Comments Formoterol High 02/16/2022 Other reaction(s): RASH Lisinopril Cough Low 10/24/2012 Penicillins Other (Please comment) 08/15/2013 Family hx allergic reaction Simvastatin High 02/16/2022 Other reaction(s): RASH documented as of this encounter (statuses as of 07/17/2024) Medications Aspirin 81 MG Oral Tablet Delayed Release Take 1 Tablet by mouth in the morning. Active Nitroglycerin 0.6 MG Sublingual Tablet Sublingual (Nitrostat)Indic ations:chest pain Place 1 Tablet under the tongue every 5 minutes as needed. Active Fluocinolone Acetonide Scalp 0.01 % External Oil Apply to scalp before beed once weekly for 3 total treatments 118.28 mL 3 4:20 PM EST 08/13/19 23 Active Triamcinolone Acetonide 0.1 % External Cream (Aristocort)Anitha cations:Dermatit is Apply topically to affected area 2 times a day. To affected area. Stomach rash 453.6 g 5 3 3:13 PM EDT 09/30/19 23 Active Ammonium Lactate 12 % External CreamIndications :Intrinsic atopic dermatitis Apply topically to affected area 2 times a day. To affected area. 385 g 11 4 2:21 PM EST 11/02/19 Active Albuterol Sulfate HFA 108 (90 Base) MCG/ACT Inhalation Aerosol SolutionIndicati ons:COPD exacerbation (HCC) Inhale 2 Puffs by mouth every 6 hours as needed for Cough, Shortness of Breath or Wheezing. 18 g 2 3 4:39 PM EDT 11/02/19 Active Additional Information Patient taking differently:2 Puff Inhalation Q6H PRN, Cough, Shortness of Breath, Wheezing,Indications: COPD, Reported on 06/26/2024 Fleet Liquid Glycerin Supp 5.4 GM/DOSE Rectal Enema (Glycerin (Laxative))Indic ations:constipat ion Administer into the rectum. Active EQ Fiber Powder Oral PowderIndication s:constipation Take by mouth. Active Vitamin B-12 1000 MCG Oral Tablet (Cyanocobalamin) Indications:B12 deficiency Take 1 Tablet by mouth in the morning. 100 Tablet 3 3 3:24 PM EDT 04/18/20 Active Polyethylene Glycol 3350 17 GM/SCOOP Oral Powder (GNP ClearLax) USE 1 CAPFUL UP TO 3 TIMES DAILY FOR CONSTIPATION 238 g 11 3 2:01 PM EST 07/01/20 23 Active Dexcom G7 Sensor Use 1 sensor every 10 days E 11.9 3 Each 11 10/17/19 24 Active Dexcom G7 Home Help Aide Device Use to read blood glucose values with dexcom G7 sensor E 11.9 1 Each 10/17/19 24 Active Isosorbide Mononitrate ER 30 MG Oral Tablet Extended Release 24 Hour (Imdur)Indicatio ns:Atheroscleros is of [place] coronary artery of [place] heart without angina pectoris TAKE 1 TABLET BY MOUTH IN THE MORNING 30 Tablet 11 4 12:12 PM EST 12/02/19 24 025 Active Vitron-C 65-125 MG Oral Tablet (Iron-Vitamin C 65-125 mg per tab) Take 1 Tablet by mouth once a day on Tuesday, Tuesday, and Tuesday only. Active Atorvastatin Calcium 20 MG Oral Tablet (Lipitor)Indicat ions:Dyslipidemi a, goal LDL below 70 Take 1 Tablet by mouth in the morning. Do not start until 12/21/23. 100 Tablet 3 4 12:10 PM EST 12/07/19 24 Active glipiZIDE 10 MG Oral Tablet (Glucotrol)Indic ations:Type 2 diabetes mellitus with hemoglobin A1c goal of less than 8.0% ([facility]) Take 1 Tablet by mouth in the morning 30 minutes before a meal. 30 Tablet 5 4 12:10 PM EST 12/30/19 24 Active Pantoprazole Sodium 40 MG Oral Tablet Delayed Release (Protonix)Indica tions:Esophageal obstruction TAKE 1 TABLET BY MOUTH DAILY. 90 Tablet 3 4 2:04 PM EST 01/03/20 24 Active Incruse Ellipta 62.5 MCG/ACT Inhalation Aerosol Powder Breath Activated (umeclidinium [place]) inhale ONE puff DAILY. 30 Each 7 4 2:04 PM EST 01/13/20 24 025 Active Clobetasol Propionate 0.05 % External SolutionIndicati ons:Seborrhea capitis Apply topically to affected area 2 times a day. To affected area for up to two weeks. 50 mL 1 4 1:46 PM EDT 02/01/20 24 Active Tamsulosin HCl 0.4 MG Oral Capsule (Flomax) Take 1 Capsule by mouth in the morning. 90 Capsule 1 4 2:04 PM EDT 02/13/20 24 Active Diclofenac Sodium 1 % External Gel (Voltaren) Apply 4 g topically to affected area 4 times a day as needed (Pain--apply to knees). 300 g 5 4 10:51 AM EDT 02/13/20 24 Active Carvedilol 3.125 MG Oral Tablet (Coreg)Indicatio ns:Old myocardial infarction Take 1 Tablet by mouth in the morning and 1 Tablet before bedtime with food. 60 Tablet 11 4 12:12 PM EST 04/11/20 24 Active Sertraline HCl 100 MG Oral Tablet (Zoloft)Indicati ons:ANKITA (generalized anxiety disorder),Dysthy rodney Take 1 and 1/2 Tablet by mouth in the morning. 45 Tablet 5 4 2:04 PM EST 04/14/20 24 Active metFORMIN HCl 1000 MG Oral Tablet (Glucophage)Anitha cations:DM type 2 causing neurological disease (HCC) TAKE 1 TABLET BY MOUTH TWICE DAILY WITH MORNING AND EVENING MEALS. 180 Tablet 3 4 1:38 PM EDT 04/16/20 24 025 Active Insulin Glargine 100 UNIT/ML Subcutaneous Solution (Lantus)Indicati ons:Type 2 diabetes mellitus with hemoglobin A1c goal of less than 8.0% ([facility]) INJECT 55 UNITS UNDER THE SKIN AT BEDTIME 50 mL 1 4 1:32 PM EDT 05/04/20 24 Active HYDROcodone-Acet aminophen 5-325 MG Oral TabletIndication s:MEDICATION USE AGREEMENT,Arthri tis of right knee Take 1 Tablet by mouth every 6 hours as needed for Pain, Mild. 60 Tablet 4 1:32 PM EDT 05/04/20 24 Active LORazepam 1 MG Oral Tablet (Ativan)Indicati ons:Anxiety TAKE 1 TABLET BY MOUTH UP TO TWICE DAILY FOR ANXIETY/INSOMNIA . 60 Tablet 5 4 12:12 PM EST 06/01/20 24 Active Magnesium Oxide -Mg Supplement 400 (240 Mg) MG Oral Tablet (Mag-Ox)Indicati ons:SSS (sick sinus syndrome) ([facility]),Dyslipidem ia, goal LDL below 70,HTN, goal below 140/90 Take 1 Tablet by mouth in the morning and 1 Tablet before bedtime. 180 Tablet 3 4 12:12 PM EST 07/06/20 24 Active Losartan Potassium 25 MG Oral Tablet (Cozaar)Indicati ons:Hypertensive heart disease with chronic diastolic congestive heart failure (HCC),HTN, goal below 140/90 Take 1 Tablet by mouth in the morning and 1 Tablet before bedtime. 60 Tablet 5 07/17/20 24 Active Losartan Potassium 25 MG Oral Tablet (Cozaar)Indicati ons:Hypertensive heart disease with chronic diastolic congestive heart failure (HCC),HTN, goal below 140/90 Take 1 Tablet by mouth in the morning. 90 Tablet 3 4 1:38 PM EDT 01/25/20 24 024 Discontin ued(Refil l) documented as of this encounter (statuses as of 07/17/2024) Active Problems Problem Noted Date Diagnosed Date Iron deficiency anemia 04/18/2024 SSS (sick sinus syndrome) 01/13/2024 MDD (major depressive disord er), recurrent episode, moderate 01/13/2024 Fatty liver 01/13/2024 Hemiplegia affecting right dominant side 024 Type 2 diabetes mellitus wit h diabetic cataract, with long-term current use of insulin 10/12/2023 Encephalomalacia 04/28/2023 Overview (04/28/2023): 03/23 cerebellar encephalomalacia. Old myocardial infarction 03/18/2023 COPD, group C, by GOLD 2017 classification 11/08 Overview: Per COPD GOLD Classification Hypertensive heart disease w ith chronic diastolic congestive heart failure 10/14/2022 Cardiac pacemaker in situ 08/24/2022 Orthostatic hypotension 08/13/2022 Dyslipidemia 08/11/2022 Lumbar degenerative disc disease 08/11/2022 Pulmonary fibrosis 08/06/2022 Chronic diastolic CHF (congestive heart failure) 07/08/2022 Assessment & Plan (07/08/2022 2:00 PM EST): Current Status: "Stable" for patient / At or near baseline Degree of Condition Awareness: Demonstrates very good awareness of condition, disease course, and prognosis "RED FLAG" HF Symptoms: o NO IDENTIFIED SYMPTOMS Current Heart Failure Classifications: o No symptoms ([employer] CLASS I) Diagnostic Review: Recent Labs Units 07/06/22 1309 04/29/22 1617 04/16/22 1633 03/05/22 1343 LEFT VENTRICULAR EJECTION FRACTION % -- 64 -- -- ESTIMATED GLOMERULAR FILTRATION RATE - [facility] mL/min 71 -- < > 76 HGB - [facility] g/dL -- -- -- 13.9* < > = values in this interval not displayed. Medication Regimen: o Beta Abdon Therapy: Carvedilol o KAYE Inhibitor/ARB Therapy: No KAYE/ARB/ARNI o Diuretic therapy: Other: not currently on diuretic-currently with recurrent dizzy spells Self - Management Plan o Avoid excessive fluid intake and avoid salty, processed food o Weigh daily Exacerbation Plan o Has not required home advanced interventions for heart failure Centrilobular emphysema 07/08/2022 Assessment & Plan (07/08/2022 2:03 PM EST): Current Status : "Stable" for patient / At or near baseline Degree of Condition Awareness: Demonstrates very good awareness of condition, disease course, and prognosis "RED FLAG" COPD symptoms: o NO IDENTIFIED SYMPTOMS Medication Regimen o All Classes - PRANAV o Class B, C, D - LAMA Self-Management plan o Other: call [facility] Exacerbation plan o Has not required in home advanced interventions Occlusion and stenosis of bilateral carotid kelby chuyita 11/07/2020 Overview (11/07/2020): 01/18 <50% b/l. Gastro-esophageal reflux disease without esophag itis 06/23/2020 Nonproliferative diabetic retinopathy of both ey es 11/20/2019 Chronic knee pain after tota l replacement of right knee joint 11/11/2018 ANKITA (generalized anxiety disorder) 07/29/2017 MEDICATION USE AGREEMENT 04/09/2016 Overview (10/26/2017): uses hydrocodone PRN, not daily, for LBP BPH with obstruction/lower urinary tract symptom s 08/09/2013 Well adult exam 06/11/2013 Overview (03/18/2023): 2022 wants to defer colonoscopy NEED zoster. 03/18 colon-1 5mm polyp PATH adenoma 02/13 colonoscopy- 2polyps PATH tubular adenoma + adenomatous. DANIELE 2y (fair prep) 06/14 abnormal stress test--[place] [place]ild nonobstructive [place]> patent stent. Cont med mgmt 08/14 BRIGITTE- mod BPH 08/14 TTE normal EF, Gr I saavedra Dys, EGD-dilated Schatzki ring 06/13 PFT--normal spirometry with low norm obstructive index. No response to dilator. Normal diffusing. Some air trapping, suggestive flow patterns for obstruction. Acute. HTN, goal below 130/80 05/02/2012 Coronary artery disease invo lving [place] coronary artery of [place] heart without angina pectoris 03/06/2012 Overview (04/26/2016): 1. S/p NSTEMI--CAD, NSTEMI , PCI with a bare metal stent to the OM1 on 02/03/12 at [facility] 2. Patent OM1 stent with mild nonobstructive CAD noted elsewhere via the 06/24/14 catheter[place] [facility] [place] abnormal nuclear stress testing History of acute decompensated diastolic heart failure, improved with fluid restriction and as needed furosemide Type 2 diabetes mellitus wit h hemoglobin A1c goal of less than 8.0% 05/15/2009 Overview (11/27/2015): 2014 +microalb on max ARB ICD-10 update of inactive term HTN, goal below 140/90 04/09/2008 Overview (08/27/2009): Per HTN Taxonomy. Sensorineural hearing loss, bilateral Overview (11/23/2007): noise induced possibly early presbycusis documented as of this encounter (statuses as of 07/17/2024) Resolved Problems Problem Noted Date Diagnosed Date Resolved Date Dizziness 07/08/2022 08/11/2022 Assessment & Plan (07/08/2022 2:05 PM EST): Still with intermittent dizzy episodes, not related to positioning, will last a few min, gets sweaty. Stable orthostatics today. Following with cardiology with zio monitoring. Advised to report to ED with any worsening or persistent symptoms or dizziness that does not resolve. COPD, group A, by GOLD 2017 classification 06/09/2020 11/11/2022 Overview: Per COPD GOLD Classification Type 2 diabetes mellitus wit h diabetic peripheral angiopathy without gangrene, with long-term current use of insulin 02/06/2020 023 Overview (02/06/2020): DM2 + PVD - conditions have assumed relationship per current coding guidelines. Esophageal obstruction 11/20/201908/11 Lumbar back pain 11/11/2018 10/18/2019 Overview (10/18/2019): Acute. 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 08/08/2018 08/11/2022 Old [place] (myocardial infarction) 07/03/2018 08/08/2018 Cataract, diabetic 07/03/2018 3 Diabetes mellitus with coinc ident hypertension 06/29/2018 04/06/2022 Status post total right knee replacement 06/22/2018 08/11/2022 Arthritis of right knee 01/26/201803/2019 Complex tear of meniscus of right knee as current injury 01/26/2018 08/08/2018 Heart failure, diastolic, due to HTN 12/20/2016 08/11/2022 Nephritis and nephropathy, n ot specified as acute or chronic, with other specified pathological lesion in kidney, in diseases classified elsewhere 02/11/2015 04/28/2017 Lumbago 01/08/2015 04/28/2017 Mood disorder 01/08/2015 08/11/2022 Chest tightness 06/12/2014 07/04/2014 Hearing loss 04/04/2014 08/08/2018 CTS (carpal tunnel syndrome) 01/10/2014 06/18/2018 Overview (04/25/2014): 04/14 EMG right>left CTS mod severe COPD, severity to be determined 08/06/2013 06/12/2020 Overview (04/28/2017): Sees Dr Kaiser 08/14 PFT minimal small airways disease. 2012 PFT-low normal 08/14 [facility]-upper lobe emphysema, possible basilar fibrosis Lung density on x-ray 06/04/20132013 Overview (06/04/2013): 06/13 density -repeat CXR 1mo Overweight (BMI 25.0-29.9) 04/03/2013 0 04/28/2017 Cough 10/24/2012 05/25/2013 Acute bronchitis, antibiotics not indicated 10/11/2012 05/25/2013 Impacted cerumen 10/11/2012 04/28/2017 Dermatitis 10/11/2012 04/28/2017 HTN, goal below 140/80 03/20/201205/02 Overview: Per HTN Protocol #27. Dyslipidemia, goal LDL below 70 02/07/2012 08/11/2022 [employer] Other*[id number] 02/03/2012 09/07/2016 History of non-ST elevation myocardial infarction (NSTEMI) 02/02/2012 08/11/2022 Tobacco use disorder 10/26/2010 012 Acute tonsillitis 09/07/2010 2012 Acute bronchitis, complicated 06/11/2010 2012 HTN, goal below 130/80 08/27/200903/23 Overview (08/27/2009): Per HTN Taxonomy. Dyslipidemia, goal LDL below 100 07/15/2009 02/07/2012 Overview (07/15/2009): Per Lipid Taxonomy. DM type 2 causing neurological disease 06/13/2008 08/11/2022 History of subarachnoid hemorrhage 06/13/2008 10/18/2019 Overview (10/18/2019): Historical. DM type 2, not at goal 04/09/200805/15 Overview (05/15/2009): Modified per Diabetes protocol #14. Dyslipidemia, goal LDL below 160 04/09/2008 07/15/2009 Overview (07/15/2009): Per Lipid Taxonomy. Other acute otitis externa 0 09/26/2008 Overview (09/26/2008): Resolved per Benign Acute Dxs Protocol #3 Impacted cerumen 2012 Other diseases of nasal cavi ty and sinuses(478.19) 04/28/2017 Dyspnea and respiratory abnormality 06/18/2018 Overview (05/24/2017): ICD-10 update of inactive term Deviated nasal septum 2018 documented as of this encounter (statuses as of 07/17/2024) Immunizations Name Administration Dates Next Due COVID-19 mRNA, LNP-s, No Pre serve, 2-Dose Series (Pfizer) 11/05/2020,10/13/2020 H1N1 2009 Influenza, IM 09/18/2009 Pneumococcal Conjugate Vacc, 13 Valent (Prevnar) 02/11/2015 Pneumococcal Polysaccharide PPV23 (Pneumovax) 04/09/2016,08/01/2015,03/12/2009 Season Influenza, Quad, PF, Adjuvanted, 65+ Yrs, IM (FLUAD) 05/06/2020 Seasonal Influenza Vac., MDV , IM, 0.5 mL (Fluzone) 04/04/2014,04/20/2013,04/25/2012,05/04,05/14/2010,05/02/2009,05/03/2008 Seasonal Influenza, PF, 6 M & above, IM , (FluLaval or Fluzone) 04/07/2018,04/28/2017 Seasonal Influenza, Quadriva lent Hd (Fluzone Hd) 07/01/2023,04/16/2022,04/29/2021 Seasonal Influenza, Quadriva lent, No Preserve, IM 04/09/2016,05/14/2015 Seasonal Influenza, Trivalen t, Adjuvanted, 65+ YRS, PF, (Fluad) 04/09/2019 TD - Tetanus/Diptheria (ADULT) 08/01/2005 TD, Preservative Free 08/01/2005 TDAP (age 10 and older)(Boostrix) 08/27/2021 TDAP, Age 7 and older, IM (Adacel) 07/05/2011 Varicella Zoster Vaccine (Adult) 04/28/2017 Zoster Vaccine Recombinant (Shingrix) 02/20/2021 documented as of this encounter Social History Tobacco Use Types Packs/Day Years Used Date Smoking Tobacco: Former Cigarettes 0 08/24/1968 - 08/24/1988 Smokeless Tobacco: Current Snuff Tobacco Cessation:Ready to Q uit: Not Asked; Counseling Given: Not Answered Comments:Aorta screen WNL. Alcohol Use Standard Drinks/Week Comments No 0 (1 standard drink = 0.6 oz pure alcohol) quit in 1992, had been heavy drinker PHQ-2 Answer Date Recorded PHQ Adult Total Score 0 05/01/2024 Hunger Vital Sign Answer Date Recorded Within the past 12 months, y ou worried that your food would run out before you got the money to buy more. Never true 05/01/20 24 Within the past 12 months, t he food you bought just didn't last and you didn't have money to get more. Never true 05/01/2024 Childcare Answer Date Recorded Do you feel overwhelmed with taking care of a child, family member or friend? No 05/01/2024 Does your family need help f inding childcare? (Household - for ages 0-17 years) Not on file 05/01/2024 Clothing Answer Date Recorded Have you been unable to get clothing when it was really needed? No 05/01/2024 Is your family able to get c lothes or diapers when needed? (Household - for ages 0-17 years) Not on file 05/01/2024 Personal Safety Answer Date Recorded Do you feel unsafe or have concerns for your saf ety? No 05/01/2024 Do you have concerns for you r family's safety? (Household - for ages 0-17 years) Not on file 05/01/2024 Utilities Answer Date Recorded Do you have trouble paying y our heating, water, or electric bill? No 05/01/2024 Is your family able to pay t he heat, water, or electric bill? (Household - for ages 0-17 years) Not on file 05/01/2024 Does your family have access to good internet? (Household - for ages 0-17 years) Not on file 05/01/2024 Employment Status Answer Date Recorded Are you unemployed or without regular income? No 05/01/2024 Does the household have a re gular source of income? (Household - for ages 0-17 years) Not on file 05/01/2024 Social Connections Answer Date Recorded How often do you feel lonely or isolated from th ose around you? Never 05/01/2024 Financial Resource Strain Answer Date R ecorded Do you have any trouble payi ng for your medications, or do you think you might in the future? No 05/01/2024 Does your family have troubl e paying for medicine? (Household - for ages 0-17 years) Not on file 05/01/2024 Transportation Needs Answer Date Record ed Do you have trouble getting a ride to medical visits or work? (Adult - for ages 18 years and over) Not on file 05/01/2024 Does your family have a hard time getting a ride to doctors visits? (Household - for ages 0-17 years) Not on file 05/01/2024 Has lack of transportation k ept you from medical appointments, meetings, work, or from getting things needed for daily living? Check all that apply. No 05/01/2024 Do you (or your family) have trouble finding or paying for a ride (transportation)? (Household - for ages 0-17 years) Not on file 05/01/2024 Housing Stability Answer Date Recorded Do you currently live in a s helter or have no steady place to sleep at night? No 05/01/2024 Do you think you are at risk of becoming homeless? (Adult - for ages 18 years and over) Not on file 05/01/2024 Does your family worry about paying for your home or becoming homeless? (Household - for ages 0-17 years) Not on file 1 Are you homeless or worried that you might be in the future? No 05/01/2024 Are you (or your family) rebeca eless or worried that you might be in the future? (Household - for ages 0-17 years) Not on file Food Insecurity Answer Date Recorded Do you need food for this week? No 05/01/2024 Are you able to get enough f ood for your family? (Household - for ages 0-17 years) Not on file 05/01/2024 Does your family need food t his week? (Household - for ages 0-17 years) Not on file 05/01/2024 Do you always have enough fo od for your family? 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 Answer Date of Assessment Author No 06/21/2018 3:00 PM EST Meaghan Tsai RN * Are you blind or do you have serious difficulty seeing, even when wearing glasses? Answer Date of Assessment Author No 06/21/2018 3:00 PM EST Meaghan Tsai RN * Do you have serious difficulty walking or climbing stairs? (5 years old or older) Answer Date of Assessment Author No 06/21/2018 3:00 PM EST Meaghan Tsai RN * Do you have difficulty dressing or bathing? (5 years old or older) Answer Date of Assessment Author No 06/21/2018 3:00 PM EST Meaghan Tsai RN * Because of a physical, mental, or emotional condition, do you have difficulty doing errands alone such as visiting a doctors office or shopping? (15 years old or older) Answer Date of Assessment Author No 06/21/2018 3:00 PM EST Meaghan Tsai RN documented as of this encounter Mental Status * Because of a physical, mental, or emotional condition, do you have serious difficulty concentrating, remembering, or making decisions? (5 years old or older) Answer Entry Date Author No 06/21/2018 3:00 PM Meaghan Fisher RN documented in this encounter Patient Instructions * Patient Instructions* Janell Padron, ZAHRAA - 07/17/2024 3:33 PM EST Diabetes: Keeping Feet Healthy Inspect your feet every day for signs of a problem. Diabetes can damage nerves in your feet and cause neuropathy. This condition makes it hard for you to feel injuries or sore spots. Diabetes can also change blood flow, making it harder for small problems, like a blister, to heal properly. In fact, minor injuries can quickly become serious infections that send you to the hospital. Practice self-care to protect your feet and keep them healthy. Take Special Care Inspect your feet daily for problems such as redness, blisters, cracks, dry skin, or numbness. Use a mirror to see the bottoms of your feet. Or, ask for help. Manage your diabetes. Monitor and control your blood sugar. Take all your medications as prescribed. Avoid walking barefoot, even indoors. Wash your feet with warm water and mild soap. Dry well, especially between toes. Dont treat corns or calluses yourself. Talk to your doctor or lime slaker (a doctor who specializes in foot care) if you need assistance trimming your toenails. Use moisturizing cream or lotion if you have dry skin, but dont use it between toes. Dont use heating pads on your feet. If you have neuropathy, you could get a burn and not feel it. Stop smoking. Smoking restricts blood flow and can make it harder for wounds to heal. Have Regular Checkups Foot problems can develop quickly. So be sure to follow your healthcare teams schedule for regular checkups. During office visits, take off your shoes and socks as soon as you get in the exam room. Ask your healthcare provider to examine your feet for problems. This will make it easier to find and treat small skin irritations before they get worse. Regular checkups can also help keep track of the blood flow and feeling in your feet. If you have neuropathy, you may need to have checkups more often. Wear Proper Footwear Wearing proper footwear is very important. If areas of your feet have been damaged by too much pressure, your healthcare provider may recommend changing your footwear. In some cases, avoiding high heels or tight work boots may be all thats needed. Or, your healthcare provider may recommend special shoes or custom inserts. These help protect your feet and keep existing irritations from getting worse. If you need special footwear, ask your healthcare provider if you qualify for [employer] diabetic shoe program. Make Sure Shoes and Socks Fit Any pair of shoes--new or old--should feel comfortable as soon as you put them on. There shouldnt be any rubbing when you walk. Wear the right shoe for any activity. For instance, a running shoe is designed to keep your feet injury-free while jogging. Buy shoes at the end of the day, when your feet are larger. Make sure they provide support without feeling too loose. Make sure your socks fit, t oo. Wear soft, seamless, well-padded socks for activity. Cotton or microfiber socks are best to help to absorb sweat. To protect your feet, avoid shoes that are open-toed or open-heeled. If you have questions about what kinds of shoes and socks are best, talk to your healthcare team. Get Regular Exercise Regular exercise improves blood flow in your feet. It also increases foot strength and flexibility.Gentle exercises, like walking or riding a stationary bicycle, are best. You can also do special foot exercises. Just be sure to talk with your healthcare provider before starting any exercise program. Also mention if any exercise causes pain, redness, or other signs of foot problems. Note: If you have any kind of break in the skin of your foot or ankle, keep the area clean. Then call your doctor--especially if the area doesnt appear to be healing. [phone] [employer], [address] [place] [address], [place] [address]. All rights reserved. This information is not intended as a substitute for professional medical care. Always follow your healthcare professional's instructions. documented in this encounter Progress Notes * Eddie Ruffin MD - 07/17/2024 4:08 PM EST Images from the original note were not included. Subjective Kaden Badillo is a 73 year old male presenting for Return Visit (3 month return-open area on left ankle/heel) Here w/. History of Present Illness The patient, with a history of diabetes, hypertension, and prostate issues, presents with a sore onthe back of his foot and high blood pressure. The sore, which appears to be healing, is painful butnot oozing. The patient is unsure of how he got it. He also reports increased urinary frequency, needing to urinate three to four times a night and experiencing leakage. He wears a diaper and a pad to manage this. States he is taking his regular meds. No new supplements, sudafed etc. The patient's blood pressure was noted to be high during the visit, with an average reading of 200/90. He reports having had a headache the previous night, but denies having one during the visit. The patient also mentions a history of leg swelling a few weeks ago, which has since resolved. He is unsure of what caused the swelling or what led to its resolution. No fever, chills, chest pain, shortness of breath, headache, nausea, vomit, diarrhea, constipation or vision changes BP was high recently at [facility] as well. Objective Blood pressure 200/84, pulse 68, temperature 98.6 F (37 C), temperature source Tympanic, resp. rate 16, SpO2 94%. Physical Exam VITALS: BP- 200/90 on repeat. NECK: No swollen glands. CARDIOVASCULAR: Heart sounds regular, mild murmur on right 2nd RICS graded as 2/6. ABDOMEN: Abdomen soft, non-tender. EXTREMITIES: No current leg swelling. SKIN: Healing blister on back of left achilles no signs of infection./redness/discharge Mskel 5/5 strength b/l LE, but gait/knees unstable. Doing home PT. Results LABS Microalbumin: elevated BMP stable. Assessment and Plan Assessment & Plan Hypertension Blood pressure significantly elevated (average ~200/90) with a reported headache last night. No headache at present. No new medications or rynl-uqk-bbgowrd cold/cough medications. No chest pain or other symptoms of hypertensive emergency. -Increase Losartan to 1 pill twice a day (morning and night). -Check blood pressure at home, ideally in the morning after emptying bladder and resting for 5 minutes -ER if acute CP, BAUTISTA, SOB etc.. -Follow-up appointment on 08/02/2024 at 9 AM to recheck blood pressure. Foot Sore Healing foot sore, likely a blister. No signs of infection. -Continue current care. Urinary Incontinence Increased frequency and urgency, requiring use of diaper and pad. No changes in medication. -No changes to current management plan at this time. Lower Extremity Edema Reported swelling in legs a few weeks ago, resolved on its own. No current swelling. -No changes to current management plan at this time. General Health Maintenance -Continue current medications and lifestyle modifications. -Encouraged to drink plenty of water. HTN, goal below 140/90 (Primary) - Losartan Potassium 25 MG Oral Tablet (Cozaar); Take 1 Tablet by mouth in the morning and 1 Tabletbefore bedtime. DM type 2 nursing care encounter (HCC) - DIABETES FOOT EXAM Hypertensive heart disease with chronic diastolic congestive heart failure (HCC) - Losartan Potassium 25 MG Oral Tablet (Cozaar); Take 1 Tablet by mouth in the morning and 1 Tabletbefore bedtime. Wrap-Up Follow Up: Return in about 2 weeks (around 07/31/2024) for Return with AP. | For: Return with AP | Check-out note: Same day or private slot with me 08/02/24 9 AM. Time: I spent a total of 20-29 minutes (exact time 25 mins) on the date of service in preparation, delivery, and documentation of the care provided to Kaden Badillo excluding any time spent in the performance of separately billed services. Text in this note was generated using an [employer] documentation service. I discussed the use of a device to record and summarize our discussion today. All persons present during the encounter consented to its use. * Janell Padron LPN - 07/17/2024 3:33 PM EST DM Foot Exam completed today. Provider aware. Janell Padron LPN Socks and Shoes Removed for Annual Diabetic Foot Screening RIGHT FOOT: No Reddened, Cracking, Or Open Areas Noted. RIGHT Dorsalis Pedis Pulse: Palpable RIGHT Posterior Tibial Pulse: Palpable RIGHT Monofilament:Patient reports difficulty feeling monofilament at Great toe- plantar surface LEFT FOOT: Area of Concern Back of ankle near Achilles-opened area LEFT Dorsalis Pedis Pulse: Palpable LEFT Posterior Tibial Pulse: Palpable LEFT Monofilament:Patient reports feeling monofilament pressure on plantar surface of foot Do you need diabetic shoes: No documented in this encounter Nursing Notes * Janell Padron LPN - 07/17/2024 3:30 PM EST The patient has been properly identified by confirmation of name and date of . Chief Complaint Patient presents with Return Visit 3 month return documented in this encounter Plan of Treatment Upcoming Encounters Date Type Department Care Team (Late st Contact Info) Description 07/30/2024 2:30 PM EST Cardiac Studies Cardiac Studies, [facility] [address] [facility] [place] [id number] 08/02/2024 9:00 AM EST Office Visit Family Practice [facility] [address] [place] [id number] Eddie Ruffin MD [address] [place] [address] 08/27/2024 2:45 PM EST Office Visit Urology, [facility] [address] [facility] [address] Valentín Sampson MD [address] [place] [address] 10/19/2024 2:00 PM EDT Office Visit [facility] [address] [facility] [place] [address] Eddie Ruffin MD [address] [place] [address] 10/29/2024 10:30 AM EDT Office Visit Cardiology, [facility] [place] [address] Kana Somers PA-C [address] [place] [address] 03/12/2025 3:20 PM EDT Office Visit [facility] [place] [address] Eddie Ruffin MD [address] [place] [address] Health Maintenance Due Date Last Done Comments Adult Wellness Visit 08/04/2022 08/04/2021 Colonoscopy 03/22/2023 03/22/2018, 03/02, 02/24/2016, Additional history exists Influenza Vaccine (FLU shot) (#1) 2024 07/01/2023, 04/16/2022, 04/29/2021, Additional history exists *NEPHROLOGY REFERRAL DUE TO RESISTANT HTN 06/29/2024 HbA1c 10/08/2024 04/10/2024, 11/01, 06/28/2023, Additional history exists Diabetic Eye Exam 10/26/2024 10/27/2023, (Done elsewhere), 01/28/2023, Additional history exists Albumin/Creatinine Ratio 05/01/2025 024, 06/28/2023, 04/16/2022, Additional history exists Depression Monitoring 05/01/2025 05/01/2024 GFR 06/26/2025 06/26/2024, 04/01, 11/29/2023, Additional history exists Diabetic Foot Exam 07/17/2025 07/17/2024, 0 02/24/2024 (Done elsewhere), 02/20/2021, Additional history exists O2 ASSESSMENT COMPLETED IN PAST YEAR FOR COPD 07/17/2025 07/17/2024 DTap/Tdap Vaccines (3 - Td or Tdap) 08/27/2031 08/27/2021, 07/05/2011, 08/01/2005, Additional history exists Pneumococcal Vaccine: 65+ Years Completed 04/09/2016, 08/01/2015, 02/11/2015, Additional history exists RETIRED - COLONOSCOPY-EVERY 5 YRS AGES 18-100 Discontinued 03/22/2018, 03/22/2018, 02/24/2016, Additional history exists COVID-19 Vaccine Discontinued 11/05/2020, 10/13/2020 Zoster Vaccines Discontinued 02/20/2021, 04/28/2017 Alpha-1 Antitrypsin Completed 04/16/2022 HPV (Gardasil) Vaccine Aged Out No lo nger eligible based on patient's age to complete this topic Hepatitis B Vaccine Aged Out No longe r eligible based on patient's age to complete this topic MENINGOCOCCAL (MENACTRA/MENVEO) Aged Out No longer eligible based on patient's age to complete this topic documented as of this encounter Medical Devices Implanted Type Area Flower Stripper Device Identifier Shelf Expiration Date Model / Serial / Lot Cement Antibiotic Bone - [id number] Implanted:Qty: 2 on 06/21/2018 [place] Sridhar Grant [place] [facility] [place] [employer]WN : [employer] 12/29/2018 [id number] / / [id number] Triathlon Asyetric X3 Patell - [id number] Implanted:Qty: 1 on 06/21/2018 by Sridhar Grant [place] [facility] [place] [employer] : [employer] 03/15/2023 5551-G-350 / / [id number] Component Femoral Rt Size 5 T - [id number] Implanted:Qty: 1 on 06/21/2018 by Sridhar Grant MD [place] [facility] [place] [employer] : [employer] 12/10/2022 [id number] / / [id number] Knee Baseplate Mis Tib Tri 5 - [id number] Implanted:Qty: 1 on 06/21/2018 by Sridhar Grant MD [place] [facility] [place] [employer] : [employer] 01/12/2023 [id number] / / [id number] Knee X3 Ins Pos Cs Sz5 9 - [id number] Implanted:Qty: 1 on 06/21/2018 by Sridhar Grant MD [place] [facility] [place] [employer] : [employer] 10/17/2022 [id number] / / [id number] documented as of this encounter Visit Diagnoses Diagnosis Advanced care planning/counseling discussion- Primary Other specified counseling Chronic diastolic CHF (congestive heart failure) (HCC) Chronic diastolic heart failure Centrilobular emphysema (HCC) Other emphysema Dizziness Dizziness and giddiness HTN, goal below 140/90- Primary Unspecified essential hypertension DM type 2 nursing care encounter (HCC) Type II or unspecified type diabetes mellitus without mention of complication, not stated as uncontrolled Hypertensive heart disease with chronic diastolic congestive heart failure (HCC) Sore on ankle documented in this encounter Advance Directives * Full Code (Latest Code Status on File) Date Activated Date Inactivated Comments 06/21/2018 7:01 PM 06/23/2018 5:32 PM This order reflects the patients wishes and were consensually agreed upon. * Full Code Date Activated Date Inactivated Comments 05/28/2014 8:00 AM 05/28/2014 12:38 PM This orde r reflects the patients wishes and were consensually agreed upon. * Full Code Date Activated Date Inactivated Comments 02/02/2012 12:43 PM 02/04/2012 3:17 PM This order re flects the patients wishes and were consensually agreed upon. Question Answer Comments Discussion of Advance Directives occurred with: Patient Does the patient have a Living Will? No Does the patient have Health Care Power of Attor raman? No Healthcare Agents on File Name Relationship Healthcare Agent Relationshi p Communication Gabi Badillo Spouse Health Care Repr esentative (appointed verbally by patient or by statute hierarchy) Care Teams Ctrs Relationship Specialty Start Date End Date Eddie Ruffin MD [address] [place] [address] PCP - General Family Medicine 07/18/14 documented as of this encounter
--- OUTSIDE RECORDS SUMMARY | 2024-07-27 13:14 | External Medical Summary | Summary of Care ---
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 He's been treated with creams. He has been scratching his scalp. Has been using clobetasol solution and fluocinolone scalp oil. Also using antibiotic ointment on scabbed areas. * Evaluate & Treat - Unlimited Visits (Within 3 days (urgent)) - Authorized Specialty Diagnoses / Procedures Referred By Michael sheets Referred To Contact Dermatology Diagnoses Basal cell carcinoma (BCC) of scalp Jerson Perez MD [address] [place] [address] Phone: tel: fax: Referral ID Status Reason Start Date Expiration Date Visits Requested Visits Authorized [id number] Authorized Specialty Services Required [phone] Encounter Details Date Type Department Care Team ([facility] Contact Info) Description 07/03/2024 10:45 AM EST Office Visit Dermatology [place] Eric Sherman [address] [facility] [place] [address] Imer Jose MD [address] [facility] [place] [address] Erosive pustular dermatosis of scalp*; Skin neoplasm Allergies Active Allergy Reactions Criticality Noted Date Comments Formoterol High 02/16/2022 Other reaction(s): RASH Lisinopril Cough Low 10/24/2012 Penicillins Other (Please comment) 08/15/2013 Family hx allergic reaction Simvastatin High 02/16/2022 Other reaction(s): RASH documented as of this encounter (statuses as of 07/03/2024) Medications Aspirin 81 MG Oral Tablet Delayed Release Take 1 Tablet by mouth in the morning. Active Nitroglycerin 0.6 MG Sublingual Tablet Sublingual (Nitrostat)Indic ations:chest pain Place 1 Tablet under the tongue every 5 minutes as needed. Active Fluocinolone Acetonide Scalp 0.01 % External Oil Apply to scalp before beed once weekly for 3 total treatments 118.28 mL 08/13/2022 4:20 PM EST 3 Active Triamcinolone Acetonide 0.1 % External Cream (Aristocort)Anitha cations:Dermatit is Apply topically to affected area 2 times a day. To affected area. Stomach rash 453.6 g 5 01/31/2023 3:13 PM EDT 3 Active Ammonium Lactate 12 % External CreamIndications :Intrinsic atopic dermatitis Apply topically to affected area 2 times a day. To affected area. 385 g 11 09/23/2023 2:21 PM EST 3 Active Albuterol Sulfate HFA 108 (90 Base) MCG/ACT Inhalation Aerosol SolutionIndicati ons:COPD exacerbation (HCC) Inhale 2 Puffs by mouth every 6 hours as needed for Cough, Shortness of Breath or Wheezing. 18 g 2 11/01/2022 4:39 PM EDT 3 Active Additional Information Patient taking differently:2 Puff Inhalation Q6H PRN, Cough, Shortness of Breath, Wheezing,Indications: COPD, Reported on 06/26/2024 Fleet Liquid Glycerin Supp 5.4 GM/DOSE Rectal Enema (Glycerin (Laxative))Indic ations:constipat ion Administer into the rectum. Active EQ Fiber Powder Oral PowderIndication s:constipation Take by mouth. Active Magnesium Oxide -Mg Supplement 400 (240 Mg) MG Oral Tablet (Mag-Ox) Take 1 Tablet by mouth in the morning and 1 Tablet before bedtime. 180 Tablet 3 07/16/2023 9:35 AM EST 3 Active Vitamin B-12 1000 MCG Oral Tablet (Cyanocobalamin) Indications:B12 deficiency Take 1 Tablet by mouth in the morning. 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 Active Atorvastatin Calcium 20 MG Oral Tablet (Lipitor)Indicat ions:Dyslipidemi a, goal LDL below 70 Take 1 Tablet by mouth in the morning. Do not start until 12/21/23. 100 Tablet 3 06/15/2024 12:10 PM EST 4 Active glipiZIDE 10 MG Oral Tablet (Glucotrol)Indic ations:Type 2 diabetes mellitus with hemoglobin A1c goal of less than 8.0% (HCC) Take 1 Tablet by mouth in the morning 30 minutes before a meal. 30 Tablet 5 06/15/2024 12:10 PM EST 4 Active Pantoprazole Sodium 40 MG Oral Tablet Delayed Release (Protonix)Indica tions:Esophageal obstruction TAKE 1 TABLET BY MOUTH DAILY. 90 Tablet 3 04/03/2024 2:59 PM EDT 4 Active Incruse Ellipta 62.5 MCG/ACT Inhalation Aerosol Powder Breath Activated (umeclidinium Dalton) inhale ONE puff DAILY. 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 90 Tablet 3 04/23/2024 1:38 PM EDT 4 Active Clobetasol Propionate 0.05 % External SolutionIndicati ons:Seborrhea capitis Apply topically to affected area 2 times a day. To affected area for up to two weeks. 50 mL 1 02/03/2024 1:46 PM EDT 4 Active Tamsulosin HCl 0.4 MG Oral Capsule (Flomax) Take 1 Capsule by mouth in the morning. 90 Capsule 1 05/14/2024 2:04 PM EDT 4 Active Diclofenac Sodium 1 % External Gel (Voltaren) Apply 4 g topically to affected area 4 times a day as needed (Pain--apply to knees). 300 g 5 02/16/2024 10:51 AM EDT 4 Active Carvedilol 3.125 MG Oral Tablet (Coreg)Indicatio ns:Old myocardial infarction Take 1 Tablet by mouth in the morning and 1 Tablet before bedtime with food. 60 Tablet 11 06/15/2024 12:10 PM EST 4 Active Sertraline HCl 100 MG Oral Tablet (Zoloft)Indicati ons:ANKITA (generalized anxiety disorder),Dysthy rodney Take 1 and 1/2 Tablet by mouth in the morning. 45 Tablet 5 06/01/2024 11:52 AM EDT 4 Active metFORMIN HCl 1000 MG Oral Tablet (Glucophage)Anitha cations:DM type 2 causing neurological disease (HCC) TAKE 1 TABLET BY MOUTH TWICE DAILY WITH MORNING AND EVENING MEALS. 180 Tablet 3 04/23/2024 1:38 PM EDT 4 025 Active Insulin Glargine 100 UNIT/ML Subcutaneous Solution (Lantus)Indicati ons:Type 2 diabetes mellitus with hemoglobin A1c goal of less than 8.0% ([facility]) INJECT 55 UNITS UNDER THE SKIN AT BEDTIME 50 mL 1 05/07/2024 1:32 PM EDT 4 Active HYDROcodone-Acet aminophen 5-325 MG Oral TabletIndication s:MEDICATION USE AGREEMENT,Arthri tis of right knee Take 1 Tablet by mouth every 6 hours as needed for Pain, Mild. 60 Tablet 05/07/2024 1:32 PM EDT 4 Active LORazepam 1 MG Oral Tablet (Ativan)Indicati ons:Anxiety TAKE 1 TABLET BY MOUTH UP TO TWICE DAILY FOR ANXIETY/INSOMNIA . 60 Tablet 5 06/12/2024 12:44 PM EST 4 Active documented as of this encounter (statuses as of 07/03/2024) Active Problems Problem Noted Date Diagnosed Date [...] - LAMA Self-Management plan o Other: call [facility] Exacerbation plan o Has not required [...] prep) 06/14 abnormal stress test--referred for CATH [place]--mild nonobstructive CAD> patent stent. Cont med mgmt 08/14 BRIGITTE- mod BPH 08/14 TTE normal EF, Gr I saavedra Dys, EGD-dilated Schatzki ring 06/13 PFT--normal spirometry with low norm obstructive index. No response to dilator. Normal diffusing. Some air trapping, suggestive flow patterns for obstruction. Acute. HTN, goal below 130/80 05/02/2012 Coronary artery disease invo lving [place] coronary artery of [place] heart without angina pectoris 03/06/2012 Overview (04/26/2016): 1. S/p NSTEMI--CAD, NSTEMI , PCI with a bare metal stent to the OM1 on 02/03/12 at [facility] 2. 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 2012 PFT-low normal 08/[address] [facility]-upper lobe emphysema, possible basilar fibrosis Lung density on x-ray 06/04/20132013 Overview (06/04/2013): 06/13 density -repeat CXR 1mo Overweight (BMI 25.0-29.9) 04/03/2013 0 04/28/2017 Cough 10/24/2012 05/25/2013 Acute bronchitis, antibiotics not indicated 10/11/2012 05/25/2013 Impacted cerumen 10/11/2012 04/28/2017 Dermatitis 10/11/2012 04/28/2017 HTN, goal below 140/80 03/20/201205/02 Overview: Per HTN Protocol #27. Dyslipidemia, goal LDL below 70 02/07/2012 08/11/2022 [employer] [facility] Other*[id number] 02/03/2012 09/07/2016 History of non-ST elevation myocardial [...] as of this encounter (statuses as of 07/03/2024) Immunizations Name Administration Dates Next Due COVID-19 [...] 08/24/1968 - 08/24/1988 Smokeless Tobacco: Current Snuff Comments:Aorta screen WNL. 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 Answer Date of Assessment Author No 06/21/2018 3:00 PM Meaghan Fisher RN * Are you blind or do you have serious difficulty seeing, even when wearing glasses? Answer Date of Assessment Author No 06/21/2018 3:00 PM Meaghan Fisher RN * Do you have serious difficulty walking or climbing stairs? (5 years old or older) Answer Date of Assessment Author No 06/21/2018 3:00 PM Meaghan Fisher RN * Do you have difficulty dressing or bathing? (5 years old or older) Answer Date of Assessment Author No 06/21/2018 3:00 PM Meaghan Fisher RN * Because of a physical, mental, or emotional condition, do you have difficulty doing errands alone such as visiting a doctors office or shopping? (15 years old or older) Answer Date of Assessment Author No 06/21/2018 3:00 PM Meaghan Fisher RN documented as of this encounter Mental Status * Because of a physical, mental, or emotional condition, do you have serious difficulty concentrating, remembering, or making decisions? (5 years old or older) Answer Entry Date Author No 06/21/2018 3:00 PM Meaghan Fisher RN documented in this encounter Progress Notes * Imer Jose MD - 07/03/2024 10:54 AM EST SUBJECTIVE: Chief Complaint: Chief Complaint Patient presents with NEW PATIENT Patient here for scabbed lesions on his scalp he's had for about a year. He's been treated with creams. He has been scratching his scalp. Has been using clobetasol solution and fluocinolone scalp oil. Also using antibiotic ointment on scabbed areas. HPI: Kaden Badillo is a 73 year old male seen for a lesion on scalp. Thinks maybe present about a year or so. Red and crusty. Never bled. Treating with various creams including bactroban and clobetasol soln. Scalp is itchy. Chronically itchy Here with and daughter. OBJECTIVE: GEN: In wheelchair but alert, no distress, appears oriented, pleasant, and cooperative SKIN: Problem focused exam reveals: A. Vertex scalp with 3-4 crusted erosions - favor erosive pustular dermatosis - r/o bcc ASSESSMENT/PLAN: Erosive pustular dermatosis of scalp - will biopsy today to r/o bcc - otherwise continue bactroban and fluocinonide scalp oil Procedure - Tangential biopsy of skin Biopsy by shave was recommended for the lesion(s) noted above to establish and confirm diagnosis. The procedure, risks, benefits, alternatives and expected outcomes were discussed with the patient and consent was obtained. Time out called. Patient identified, procedure verified, site(s) identified and verified. Patient and staff present in agreement. Area prepped with alcohol and anesthetized using 0.5% lidocaine with epinephrine at 1:200,000 concentration. Biopsy of lesion(s) performed. 20% AlCl and bandaging applied. Specimen(s) sent to pathology. Patient instructed in routine post-op care. Imer Jose MD REF: JERSON PEREZ [address] [place] [address] (office) [phone] (fax) PCP: EDDIE HO [address] [place] [address] [phone] documented in this encounter Nursing Notes * Yanelis Jon LPN - 07/03/2024 10:40 AM EST Chief Complaint Patient presents with NEW PATIENT Patient here for scabbed lesions on his scalp he's had for about a year. He's been treated with creams. He has been scratching his scalp. Has been using clobetasol solution and fluocinolone scalp oil. Also using antibiotic ointment on scabbed areas. documented in this encounter Plan of Treatment Upcoming Encounters Date Type Department Care Team (Late st Contact Info) Description 07/17/2024 3:20 PM EST Office Visit [facility] [address] [facility] [place] [id number] Eddie Ho MD [address] [facility] [place] [address] 07/30/2024 2:30 PM EST Cardiac Studies [facility] [address] [facility] [place] [address] 08/27/2024 2:45 PM EST Office Visit Urology, [facility] [address] [facility] [place] [address] Valentín Sampson MD [address] [place] [id number] 10/19/2024 2:00 PM EDT Office Visit [facility] [address] [place] [address] Eddie Ho MD [address] [place] [address] 03/12/2025 3:20 PM EDT Office Visit [facility] [address] [place] [address] Eddie Ho MD [address] [place] [address] Pending Results Name Type Priority Associated Diagnoses Date /Time SURGICAL PATHOLOGY Pathology Routine Skin neoplasm 07/03/2024 11:03 AM EST Health Maintenance Due Date Last Done Comments Adult Wellness Visit 08/04/2022 08/04/2021 Colonoscopy 03/22/2023 03/22/2018, 03/02, 02/24/2016, Additional history exists Influenza Vaccine (FLU shot) (#1) 2024 07/01/2023, 04/16/2022, 04/29/2021, Additional history exists *NEPHROLOGY REFERRAL DUE TO RESISTANT HTN 06/29/2024 HbA1c 10/08/2024 04/10/2024, 11/01, 06/28/2023, Additional history exists Diabetic Eye Exam 10/26/2024 10/27/2023, (Done elsewhere), 01/28/2023, Additional history exists Diabetic Foot Exam 02/23/2025 02/24/2024 (D one elsewhere), 02/20/2021, 05/20/2020, Additional history exists Albumin/Creatinine Ratio 05/01/2025 024, 06/28/2023, 04/16/2022, Additional history exists Depression Monitoring 05/01/2025 05/01/2024 O2 ASSESSMENT COMPLETED IN PAST YEAR FOR COPD 06/11/2025 06/11/2024 GFR 06/26/2025 06/26/2024, 04/01, 11/29/2023, Additional history exists DTap/Tdap Vaccines (3 - Td or Tdap) [...] this encounter Medical Devices Implanted Type Area 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 Device Identifier Shelf Expiration Date Model / Serial / Lot Cement Antibiotic Bone - [id number] Implanted:Qty: 2 on 06/21/2018 by Sridhar Grant MD at [place] [facility] Right: Knee DESHAWN : ORTH[employer] 12/29/2018 [id number] / / [id number] Triathlon Asyetric X3 Patell - [id number] Implanted:Qty: 1 on 06/21/2018 by Sridhar Grant MD at [place] [facility] Right: Knee DESHAWN : ORTHOP[employer] 03/15/2023 5551-G-350 / / [id number] Component Femoral Rt Size 5 T - [id number] Implanted:Qty: 1 on 06/21/2018 by Sridhar Grant MD at [place] [facility] Right: Knee DESHAWN : ORTH[employer] 12/10/2022 5510-F-[id number] / / [id number] Knee Baseplate Mis Tib Tri 5 - [id number] Implanted:Qty: 1 on 06/21/2018 by Sridhar Grant MD at [place] [facility] Right: Knee DESHAWN : ORTH[employer] 01/12/2023 5520-M-[id number] / / [id number] Knee X3 Ins Pos Cs Sz5 9 - [id number] Implanted:Qty: 1 on 06/21/2018 by Sridhar Grant MD at OR [facility] Right: Knee DESHAWN : ORTHOP[employer]ICS 10/17/2022 [id number] / / [id number] documented as of this encounter Visit Diagnoses Diagnosis Advanced care planning/counseling discussion- Primary Other specified counseling Chronic diastolic CHF (congestive heart failure) (HCC) Chronic diastolic heart failure Centrilobular emphysema (HCC) Other emphysema Dizziness Dizziness and giddiness Erosive pustular dermatosis of scalp- Primary Skin neoplasm Neoplasm of unspecified nature of bone, soft tissue, and skin documented in this encounter Advance Directives * [...] patient or by statute hierarchy) Care Teams Metal Solderer Relationship Specialty Start Date End Date Eddie Ho MD [address] [place] [address] PCP - General Family Medicine 07/18/14 documented as of this encounter
--- OUTSIDE RECORDS SUMMARY | 2024-07-27 13:14 | External Medical Summary | Summary of Care ---
Author Name Unknown Organization [facility] Address [address] [place] [address] Phone [phone] Care Team Providers Care Probate Clerk Name Role Phone Eddie Ruffin MD Primary Care Provider + Reason for Referral * Evaluate & Treat - Unlimited Visits (Within 30 days (routine)) - Authorized Specialty Diagnoses / Procedures Referred By Michael sheets Referred To Contact Physical Therapy / Physical Medicine And Rehab Diagnoses Generalized weakness Ambulatory dysfunction Falls Malathi Newman PA-C [address] [place] [address] Phone: tel: fax: Referral ID Status Reason Start Date Expiration Date Visits Requested Visits Authorized [id number] Authorized Specialty Services Required 4 [phone] Question Answer Referral Priority Within 30 days (routine) Where should this appointment be scheduled? External Comments Home Physical therapy requested due to difficulty traveling, getting in and out of car Weakness; Falls; Ambulatory dysfunction * Precert (Diagnostic Medical) (Within 10 days (routine)) - Authorized Specialty Diagnoses / Procedures Referred By Michael sheets Referred To Contact Cardiac Studies Diagnoses Generalized weakness Ambulatory dysfunction Cardiac pacemaker in situ Coronary artery disease involving shinnecock coronary artery of shinnecock heart without angina pectoris Procedures ECHO, COMPLETE (2D), TRANS-THORACIC Malathi Newman PA-C [address] [place] [address] Phone: tel: fax: Referral ID Status Reason Start Date Expiration Date V isits Requested Visits Authorized [id number] Authorized Precert 06/26/2024 999 999 Reason for Visit * Reason Comments Follow Up Encounter Details Date Type Department Care Team (Late st Contact Info) Description 06/26/2024 3:30 PM EST Office Visit Cardiology, [facility] [address] [place] [address] Malathi Newman PA-C [address] [place] [address] Generalized weakness*; Ambulatory dysfunction; Cardiac pacemaker in situ; Coronary artery disease involving shinnecock coronary artery of shinnecock heart without angina pectoris; Falls; Dyslipidemia, goal LDL below 70; HTN, goal below 140/90 Allergies Active Allergy Reactions Criticality Noted Date Comments Formoterol High 02/16/2022 Other reaction(s): RASH Lisinopril Cough Low 10/24/2012 Penicillins Other (Please comment) 08/15/2013 Family hx allergic reaction Simvastatin High 02/16/2022 Other reaction(s): RASH documented as of this encounter (statuses as of 06/26/2024) Medications Aspirin 81 MG Oral Tablet Delayed Release Take 1 Tablet by mouth in the morning. Active Nitroglycerin 0.6 MG Sublingual Tablet Sublingual (Nitrostat)Indic ations:chest pain Place 1 Tablet under the tongue every 5 minutes as needed. Active Fluocinolone Acetonide Scalp 0.01 % External Oil Apply to scalp before beed once weekly for 3 total treatments 118.28 mL 08/13/2022 4:20 PM EST Active Triamcinolone Acetonide 0.1 % External Cream [...] 3 Each 11 4 Active Dexcom G7 [employer] Device Use to read blood glucose values with dexcom G7 sensor E 11.9 1 Each 4 Active Isosorbide Mononitrate ER 30 MG Oral Tablet Extended Release 24 Hour (Imdur)Indicatio ns:Atheroscleros is of shinnecock coronary artery of shinnecock heart without angina pectoris TAKE 1 TABLET [...] less than 8.0% ([facility]) Take 1 Tablet by mouth in the morning 30 minutes before a meal. 30 Tablet 5 06/15/2024 12:10 PM EST 4 Active Pantoprazole Sodium 40 MG Oral Tablet Delayed Release (Protonix)Indica tions:Esophageal obstruction TAKE 1 TABLET BY MOUTH DAILY. 90 Tablet 3 04/03/2024 2:59 PM EDT 4 Active Incruse Ellipta 62.5 MCG/ACT Inhalation Aerosol Powder Breath Activated (umeclidinium [place]) inhale ONE puff DAILY. 30 Each 7 [...] A1c goal of less than 8.0% (HCC) INJECT 55 UNITS UNDER THE SKIN AT [...] 5 06/12/2024 12:44 PM EST 4 Active Mupirocin 2 % External Ointment (Bactroban) Apply topically to affected area 3 times a day for 14 days 22 g 1 06/12/2024 12:44 PM EST 4 024 Active documented as of this encounter (statuses as of 06/26/2024) Active Problems Problem Noted Date Diagnosed Date [...] - LAMA Self-Management plan o Other: call [facility] Exacerbation plan o Has not required in [...] prep) 06/14 abnormal stress test--referred for CATH @[facility]--mild nonobstructive CAD> patent stent. Cont med mgmt 08/14 BRIGITTE- mod BPH 08/14 TTE normal EF, Gr I saavedra Dys, EGD-dilated Schatzki ring 06/13 PFT--normal spirometry with low norm obstructive index. No response to dilator. Normal diffusing. Some air trapping, suggestive flow patterns for obstruction. Acute. HTN, goal below 130/80 05/02/2012 Coronary artery disease invo lving shinnecock coronary artery of shinnecock heart without angina pectoris 03/06/2012 Overview (04/26/2016): 1. S/p NSTEMI--CAD, NSTEMI , PCI with a bare metal stent to the OM1 on 02/03/12 at [facility] 2. Patent OM1 stent with mild nonobstructive CAD noted elsewhere via the 06/24/14 catheterization at [facility] following abnormal nuclear stress testing History of [...] as of this encounter (statuses as of 06/26/2024) Resolved Problems Problem Noted Date Diagnosed Date [...] disease witho ut cerebral infarction 09/22/2018 08/11/2022 MCC (current) use of insulin 08/08/2018 08/11/2022 Old OK (myocardial infarction) 07/03/2018 08/08/2018 Cataract, diabetic 07/03/2018 [...] airways disease. 2012 PFT-low normal 08/14 CT [facility]-upper lobe emphysema, possible basilar fibrosis Lung density on x-ray 06/04/20132013 Overview (06/04/2013): 06/13 density -repeat CXR 1mo Overweight (BMI 25.0-29.9) 04/03/2013 0 04/28/2017 Cough 10/24/2012 05/25/2013 Acute bronchitis, antibiotics not indicated 10/11/2012 05/25/2013 Impacted cerumen 10/11/2012 04/28/2017 Dermatitis 10/11/2012 04/28/2017 HTN, goal below 140/80 03/20/201205/02 Overview: Per HTN Protocol #27. Dyslipidemia, goal LDL below 70 02/07/2012 08/11/2022 [facility] Other*[id number] 02/03/2012 09/07/2016 History of non-ST elevation myocardial [...] as of this encounter (statuses as of 06/26/2024) Immunizations Name Administration Dates Next Due COVID-19 mRNA, LNP-s, No Pre serve, 2-Dose Series (Osper) 11/05/2020,10/13/2020 H1N1 2009 Influenza, IM 09/18/2009 Pneumococcal [...] No 05/01/2024 Does the household have a [facility] source of income? 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 [facility] Not on file Not on file Not on file documented as of this encounter Last Filed Vital Signs Vital Sign Reading Time Taken Comments Blood Pressure 174/90 06/26/2024 3:35 PM EST Pulse 76 06/26/2024 3:35 PM EST Temperature - - Respiratory Rate - - Oxygen Saturation - - Inhaled Oxygen Concentration - - Weight 89.4 kg (197 lb) 06/26/2024 3:35 PM EST Height - - Body Mass Index 29.09 06/11/2024 6:37 PM EST documented in this encounter Functional Status * [...] documented in this encounter Progress Notes * Malathi Newman PA-C - 06/26/2024 4:16 PM EST 06/26/2024 Cardiology F/U: Kaden Sandra Badillo is a 73 year old male here today for routine cardiology follow- up. Accompanied by . Last clinic evaluation approx 3 months ago with Betito Somers PA-C. Problem List: ASCVD. History of NSTEMI , PCI with a bare metal stent to the OM1 on 02/03/12 at [facility]. Patent OM1 stent with mild nonobstructive CAD noted elsewhere via the 06/24/14 catheterization at [facility] following abnormal nuclear stress testing Nonischemic pharmacological stress testing last on April 29, 2022. Sick sinus syndrome status post August 23, 2022 dual chamber pacemaker implantation by Dr. Barcenas,[employer] Device. Diastolic congestive heart failure. Asymptomatic ventricular ectopy, with preserved LV systolic function Hypertension with moderate concentric LVH Dyslipidemia. Hypertriglyceridemia. Mild bilateral internal carotid artery disease. Past intracranial hemorrhage, requiring craniotomy, 2007 Type 2 diabetes mellitus, followed by PCP Iron deficiency anemia. Prior rash, possible drug reaction to metoprolol - tolerating carvedilol History of tobacco abuse, emphysema, interstitial lung disease/fibrosis, hypersomnia, [facility] by [facility]. Hypomagnesemia Status post elective right total knee replacement at [facility] on 06/21/2018. Erectile dysfunction BPH with LUTS Status post 11/07/2021 right knee PRP injection by Dr. Munoz Chronic low back pain. Anxiety History of Present Illness The patient, with a complex medical history including coronary artery disease, sick sinus syndrome managed with a dual chamber pacemaker, chronic heart failure with preserved ejection fraction, paroxysmal atrial fibrillation, hypertension, and dyslipidemia, presents with a chief complaint of diffuse and generalized weakness. The patient reports frequent falls due to balance issues and weakness, particularly in the lower extremities. The falls occur primarily when using a cane for support, rather than a walker. He completed physical therapy about 1 year ago and this seemed to help. He also reports intermittent chest pain, left sided. The discomfort, described as sharp, is localized to the lower chest. The pain is not provoked by any specific activity and resolves spontaneously within a few minutes. He mentioned the same symptoms last visit and feels his symptoms are stable. The patient denies associated symptoms such as radiation of pain, dyspnea, or diaphoresis. The patient also reports a recent diagnosis of skin cancer and an enlarged prostate, for which he has been started on new medication. Since starting this medication, the patient's mobility issues have reportedly worsened. The patient's blood pressure has been noted to be high today. They have not been checking at home. No chest pain, shortness of breath, palpitations, dizziness, syncope or near syncope. No orthopnea,PND, or increased lower extremity edema. No fever, chills, cough, hematochezia, melena, or hemoptysis. Review of Systems: See HPI for pertinent positives. All others negative, other than those noted in HPI. 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 ANKITA (generalized anxiety disorder) Chronic 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 Nonproliferative diabetic retinopathy of both eyes ([facility]) Gastro-esophageal reflux disease without esophagitis Occlusion and stenosis of bilateral carotid arteries Chronic diastolic CHF (congestive heart failure) (HCC) Centrilobular emphysema (HCC) Pulmonary fibrosis (HCC) Dyslipidemia Lumbar degenerative disc disease Orthostatic hypotension S/P biventricular cardiac pacemaker procedure Hypertensive heart disease with chronic diastolic congestive heart failure (HCC) COPD, group C, by GOLD 2017 classification ([facility]) Old myocardial infarction Encephalomalacia Hemiplegia affecting right dominant side ([facility]) Type 2 diabetes mellitus with diabetic cataract, with long-term current use of insulin (HCC) SSS (sick sinus syndrome) ([facility]) MDD (major depressive disorder), recurrent episode, moderate ([facility]) Fatty liver Iron deficiency anemia Past Surgical History: Procedure Laterality Date ARTHO,SHOUL,W/ROTATOR CUFF Right 11/04/2015 Dr Johnson UOC ARTHROPLASTY KNEE TOTAL Right 06/21/2018 ARTHROPLASTY KNEE TOTAL performed by Sridhar Grant MD at [facility] CARDIAC CATH-CARDIOLOGY ONLY 06/2014 [facility]-mild CAD-nonobstruc CARPAL TUNNEL SURGERY 05/28/2014 NEUROPLASTY MEDIAN NERVE AT CARPAL TUNNEL performed by Sridhar Bernstein MD at [facility] CARPAL TUNNEL SURGERY Left 07/11/2014 NEUROPLASTY MEDIAN NERVE AT CARPAL TUNNEL performed by Sridhar Bernstein MD at [facility] COLONOSCOPY 04/2007 clear - repeat 10y COLONOSCOPY, DIAGNOSTIC (RECTUM) 09/18/2012 adenom polyps - repeat 3y COLONOSCOPY, DIAGNOSTIC (RECTUM) 02/24/2016 adenomatous polyp, diverticulosis, poor prep, repeat 2 yrs/COLONOSCOPY FLEXIBLE PROXIMAL DIAGNOSTICperformed by Shaheen Javed MD at ENDOSCOPY [facility] COLONOSCOPY, DIAGNOSTIC (RECTUM) 03/22/2018 adenomatous polyp, diverticulosis, repeat 5 yrs/COLONOSCOPY FLEXIBLE PROXIMAL DIAGNOSTIC performed by Shaheen Javed MD at [facility]OSCOPY [facility] CORONARY ANGIOGRAPHY W/LEFT HEART CATH 02/03/2012 CORONARY ANGIOGRAPHY W/LEFT HEART CATH performed by Lazaro White MD at [facility] CORONARY ANGIOGRAPHY W/LEFT HEART CATH 06/24/2014 CORONARY ANGIOGRAPHY W/LEFT HEART CATH performed by Kristen Andrade MD at [facility] EGD, FLEXIBLE, DIAGNOSTIC 08/2013 Schatzki ring dilated. EGD, FLEXIBLE, DIAGNOSTIC 08/23/2013 ESOPHAGOGASTRODUODENOSCOPY (EGD), FLEXIBLE, TRANSORAL, DIAGNOSTIC performed by Shaheen Javed MD at [facility] KNEE ARTHROSCOPY/ARTHROPLASTY Right LASER TRABECULOPLASTY 1997 Dr. Chelsie Kaufman OU MISCELLANEOUS ORDER ([facility] ONLY) ACT 112 SIGNED 11/07/18 DR. STEVENS OPEN SKULL FOR EXPLORATION 03/2008 cerebellar hemorrhage evacuated PACEMAKER INSERTION PER 08/23/2022 Dr Apolinar Barcenas at [facility]. had 7sec pause prior REPAIR INITIAL INGUINAL HERNIA REDUCIBLE AGE 5 OR MORE bilat Family History Problem Relation Name Age of Onset Mental Disorder Mother dementia, 92 Heart Disorder Father AAA - age 74 No Known Problems Sister Ellyn No Known Problems Sister Latia not in touch. COPD Brother 74 Heart attack Brother 75 Rheum arthritis Brother Diabetes Grandmother (Maternal) Diabetes Son Social History Tobacco Use Smoking status: Former Current packs/day: 0.00 Types: Cigarettes Start date: 08/24/1968 Quit date: 08/24/1988 Years since quittin.8 Smokeless tobacco: Current Types: Snuff Tobacco comments: Aorta screen WNL. Vaping Use Vaping status: Never Used Substance Use Topics Alcohol use: No Comment: quit in 1992, had been heavy drinker Drug use: No Review of patient's allergies indicates: Allergen Reactions Formoterol Other reaction(s): RASH Simvastatin Other reaction(s): RASH Penicillins Other (Please comment) Family hx allergic reaction Lisinopril Cough Current Outpatient Medications Medication Sig Dispense Refill Aspirin 81 MG Oral Tablet Delayed Release Take 1 Tablet by mouth in the morning. Fluocinolone Acetonide Scalp 0.01 % External Oil Apply to scalp before beed once weekly for 3 totaltreatments 118.28 mL 0 Triamcinolone Acetonide 0.1 % External Cream (Aristocort) Apply topically to affected area 2 times a day. To affected area. Stomach rash 453.6 g 5 Ammonium Lactate 12 % External Cream Apply topically to affected area 2 times a day. To affected area. 385 g 11 Albuterol Sulfate HFA 108 (90 Base) MCG/ACT Inhalation Aerosol Solution Inhale 2 Puffs by mouth every 6 hours as needed for Cough, Shortness of Breath or Wheezing. (Patient taking differently: Inhale2 Puffs by mouth every 6 hours as needed for Cough, Shortness of Breath or Wheezing.) 18 g 2 Magnesium Oxide -Mg Supplement 400 (240 Mg) MG Oral Tablet (Mag-Ox) Take 1 Tablet by mouth in the morning and 1 Tablet before bedtime. 180 Tablet 3 Vitamin B-12 1000 MCG Oral Tablet (Cyanocobalamin) Take 1 Tablet by mouth in the morning. 100 Tablet 3 Polyethylene Glycol 3350 17 GM/SCOOP Oral Powder (GNP ClearLax) USE 1 CAPFUL UP TO 3 TIMES DAILY FOR CONSTIPATION 238 g 11 Dexcom G7 Sensor Use 1 sensor every 10 days E 11.9 3 Each 11 Dexcom G7 [employer] Device Use to read blood glucose values with dexcom G7 sensor E 11.9 1 Each 0 Isosorbide Mononitrate ER 30 MG Oral Tablet Extended Release 24 Hour (Imdur) TAKE 1 TABLET BY MOUTHIN THE MORNING 30 Tablet 11 Vitron-C 65-125 MG Oral Tablet (Iron-Vitamin C 65-125 mg per tab) Take 1 Tablet by mouth once a dayon Tuesday, Tuesday, and Tuesday only. Atorvastatin Calcium 20 MG Oral Tablet (Lipitor) Take 1 Tablet by mouth in the morning. Do not start until 12/21/23. 100 Tablet 3 glipiZIDE 10 MG Oral Tablet (Glucotrol) Take 1 Tablet by mouth in the morning 30 minutes before a meal. 30 Tablet 5 Pantoprazole Sodium 40 MG Oral Tablet Delayed Release (Protonix) TAKE 1 TABLET BY MOUTH DAILY. 90 Tablet 3 Incruse Ellipta 62.5 MCG/ACT Inhalation Aerosol Powder Breath Activated (umeclidinium [place]) inhale ONE puff DAILY. 30 Each 7 Losartan Potassium 25 MG Oral Tablet (Cozaar) Take 1 Tablet by mouth in the morning. 90 Tablet 3 Clobetasol Propionate 0.05 % External Solution Apply topically to affected area 2 times a day. To affected area for up to two weeks. 50 mL 1 Tamsulosin HCl 0.4 MG Oral Capsule (Flomax) Take 1 Capsule by mouth in the morning. 90 Capsule 1 Diclofenac Sodium 1 % External Gel (Voltaren) Apply 4 g topically to affected area 4 times a day asneeded (Pain--apply to knees). 300 g 5 Carvedilol 3.125 MG Oral Tablet (Coreg) Take 1 Tablet by mouth in the morning and 1 Tablet before bedtime with food. 60 Tablet 11 Sertraline HCl 100 MG Oral Tablet (Zoloft) Take 1 and 1/2 Tablet by mouth in the morning. 45 Tablet5 metFORMIN HCl 1000 MG Oral Tablet (Glucophage) TAKE 1 TABLET BY MOUTH TWICE DAILY WITH MORNING AND EVENING MEALS. 180 Tablet 3 Insulin Glargine 100 UNIT/ML Subcutaneous Solution (Lantus) INJECT 55 UNITS UNDER THE SKIN AT BEDTIME 50 mL 1 HYDROcodone-Acetaminophen 5-325 MG Oral Tablet Take 1 Tablet by mouth every 6 hours as needed for Pain, Mild. 60 Tablet 0 LORazepam 1 MG Oral Tablet (Ativan) TAKE 1 TABLET BY MOUTH UP TO TWICE DAILY FOR ANXIETY/INSOMNIA. 60 Tablet 5 Mupirocin 2 % External Ointment (Bactroban) Apply topically to affected area 3 times a day for 14 days 22 g 1 Nitroglycerin 0.6 MG Sublingual Tablet Sublingual (Nitrostat) Place 1 Tablet under the tongue every5 minutes as needed. (Patient not taking: Reported on 06/26/2024) Fleet Liquid Glycerin Supp 5.4 GM/DOSE Rectal Enema (Glycerin (Laxative)) Administer into the rectum. (Patient not taking: Reported on 06/26/2024) EQ Fiber Powder Oral Powder Take by mouth. (Patient not taking: Reported on 06/26/2024) No current facility-administered medications for this visit. OBJECTIVE/PHYSICAL EXAMINATION: BP 174/90 | Pulse 76 | Wt 89.4 kg (197 lb) | BMI 29.09 kg/m | BSA 2.09 m Blood pressure my repeat 166/98 BP Readings from Last 4 Encounters: 06/26/24 174/90 06/11/24 144/72 05/01/24 144/82 04/27/24 149/68 Examined in a chair General: NAD. A&Ox3. [place]. HENT: Sclera clear. No JVD. Lungs: Clear to auscultation. No wheeze. Cardiac: RRR. No murmurs. No rubs. or gallops Abdomen: +BS. Soft. Nontender. No organomegaly. Extremities: No edema. No clubbing. No cyanosis Neuro: Grossly normal exam Psych: Appropriate affect and insight. Data: Device interrogation reviewed from April 20, 2024: 13.4 years battery longevity, 7.4% atrial paced, 1.8% ventricular paced, 0% Afib burden. No arrhythmias. April 29, 2022 Lexiscan Interpretation Summary (as per Dr. Banks): Lexiscan nuclear cardiac stress test negative for ischemia. Gated SPECT imaging reveals normal myocardial thickening and wallmotion. The left ventricular ejection fraction was calculated to be 64%. The stress EKG response isnon diagnostic due to the baseline repolarization changes which did not change significantly with pharmacologic stress. No significant arrhythmias were observed. May 28, 2022 TTE Interpretation Summary ([facility], Dr. Astorga): Compared to prior study, there was no significant change. The left ventricle is normal in size. There is moderate concentric LVH. NormalLV wall motion. Ejection fraction 60 to 65%. Grade 1 diastolic dysfunction. Aortic valve sclerosis,moderate, without significant aortic valve stenosis. No pericardial effusion. Latest Reference Range & Units 04/10/24 14:37 Triglycerides <=174 mg/dL 340 (H) Cholesterol <200 mg/dL 140 Non-HDL Cholesterol <=159 mg/dL 110 HDL Cholesterol >39 mg/dL 30 (L) LDL Cholesterol (Direct Measure) <=129 mg/dL 72 (H): Data is abnormally high (L): Data is abnormally low Latest Reference Range & Units 04/10/24 14:37 04/16/24 13:02 SODIUM 135 - 146 mmol/L 138 POTASSIUM 3.5 - 5.1 mmol/L 4.6 CHLORIDE 98 - 107 mmol/L 100 CO2 22 - 32 mmol/L 24 BUN 6 - 20 mg/dL 17 CREATININE 0.6 - 1.2 mg/dL 1.2 EGFR >=60 mL/min 61 ANION GAP 7 - 15 mmol/L 14 GLUCOSE 70 - 120 mg/dL 221 (H) CALCIUM 8.4 - 10.2 mg/dL 10.1 Protein 6.0 - 8.3 g/dL 6.9 Estimated Average Glucose <126 mg/dL 163 (H) Folic Acid >4.5 ng/mL 7.2 LD <=250 U/L 106 (H): Data is abnormally high Assessment & Plan ASCVD. Nonischemic pharmacological stress testing last on April 29, 2022. Continue appropriate medical management. -no symptoms to suggest crescendo angina. Chest Pain Intermittent sharp chest pain lasting a couple of minutes, not associated with physical activity, radiating pain, sweating, or dyspnea. Likely secondary to musculoskeletal pain. - Consider trial of nitroglycerin if pain persists - Monitor symptoms and report any changes -stable symptoms from prior office visits Hypertension Blood pressure reading of 170/84 mmHg. Takes carvedilol twice daily, isosorbide 30 mg once daily, and losartan 25 mg daily. Discussed home blood pressure monitoring to determine if losartan dosage needs adjustment. - Monitor blood pressure at home over the next few days - Consider increasing losartan to twice daily if blood pressure remains high Frequent Falls Frequent falls due to balance issues and weakness, primarily when using a cane rather than a walker. Physical therapy previously attempted without success. Discussed the importance of using a walker for stability to prevent falls. - Recommend using walker instead of cane for stability - Evaluate for home physical therapy - Referral placed Sick Sinus Syndrome. Status post 08/23/2022 dual chamber [employer] pacemaker implantation by Dr. Barcenas. Pacemaker interrogation on Apr 2024 with stable findings Brief episodes of paroxysmal atrial flutter/fibrillation via device interrogation (see September 2023 interrogation). No recent events. Asymptomatic. Risks and benefits of anticoagulation discussed previously and due to falls, all in agreement that the risks of anticoagulation are greater than the benefit. Diastolic congestive heart failure. Compensated. Premature ventricular contractions. Asymptomatic. Quiescent . Dyslipidemia. LDL cholesterol 140 mg/dL on November 29, 2023 while off of atorvastatin 40 mg/day. Resumption of atorvastatin 40 mg/day in November 2023 resulted in weakness, medication transiently held x2 weeks then resumed at the reduced dose of 20 mg/day which patient is tolerating relatively well at pres ent. Bilateral internal carotid artery disease. Carotid duplex in September 2022 revealed stable mild bilateral internal carotid artery disease. Iron deficiency anemia. Continue Vitron-C. Check CBC. Past intracranial hemorrhage, requiring craniotomy, 2007 General Health Maintenance Routine health maintenance discussed. Blood work last done in April. Pacemaker functioning wellwith 13.5 years of battery life remaining. No recent episodes of atrial fibrillation. Discussed theimportance of regular follow-up and monitoring. - Order blood work today - Schedule echocardiogram to assess heart function The patient is to continue all current medications as listed above. No changes were made at today'svisit. Patient is being evaluated in the cardiology office for ongoing care/risk management for CAD; SSS; HTN; dyslipidemia; pacemaker; PAF. I spent a total of 45 minutes on the date of service in preparation, delivery, and documentation ofthe care provided to Kaden Badillo excluding any time spent in the performance of separately billed services. The patient agrees to the above plan and will call with additional questions or concerns. ER with all emergencies advised. Follow-up: Return in about 3 months (around 09/26/2024). | Check-out note: Blood work today Schedule echo [address] Banks or Kana Somesr or Guerda Newman PA-C Department of Cardiology Text in this note was generated using an ambient documentation service. I discussed the use of a device to record and summarize our discussion today. All persons present during the encounter consented to its use. This chart was completed in part utilizing Lingu[employer] Speech Voice Recognition Software. Grammatical errors, random word insertions, prounoun errors, and incomplete sentences are an occasional consequence of this system due to software limitations, ambient noise, and hardware issues. Any formal questions or concerns about the content, text, or information contained within the body of this dictation should be directly addressed to the provider for clarification. documented in this encounter Nursing Notes * Eliane Zuleta CMA - 06/26/2024 3:33 PM EST Examination Room: 1 Name: Kaden Badillo Date of : (1950) Reason for Visit: 6m Interim Hospitalization(s): none Problems/Concerns: denied Chest Pain/SOB: chest pain on and off. Denied SOB [facility] is a way you can talk to your provider online through e-mail. Would you like to sign up? I can activate it for you? ALREADY ACTIVE Patient was instructed to not get up on the exam table until directed and assisted by their provider; patient is to remain seated in the chair/ wheelchair/ exam table for fall prevention and safety reasons. Patient is aware to have assistance to step down off exam table with personnel. Patient voiced full comprehension of instructions. documented in this encounter Plan of Treatment Upcoming Encounters Date Type Department Care Team (Late st Contact Info) Description 07/03/2024 10:45 AM EST Office Visit Dermatology [facility] [address] [place], [place] [address] Imer Jose MD [address] [place] [address] 07/03/2024 2:25 PM EST Office Visit Hematology/Oncology [facility] [address] [place] [phone] Sy Dong MD [address] [facility] [place] [address] 07/17/2024 3:20 PM EST Office Visit [facility] [address] [facility] [place] [address] Eddie Ruffin MD [address] [facility] [place] [address] 07/30/2024 2:30 PM EST Cardiac Studies Cardiac Studies, [facility] [address] [facility] [place] [address] 08/27/2024 2:45 PM EST Office Visit Urology, [facility] [address] [facility] [place] [address] Valentín Sampson MD [address] [place] [address] 10/19/2024 2:00 PM EDT Office Visit [facility] [address] [facility] [address] Eddie Ruffin MD 132 [facility] [place] [address] 03/12/2025 3:20 PM EDT Office Visit [facility] [address] [place] [address] Eddie Ruffin MD [address] [place] [address] Pending Results Name Type Priority Associated Diagnoses Date /Time COMPREHENSIVE METABOLIC PANEL Lab Routine Generalized weakness Ambulatory dysfunction Cardiac pacemaker in situ Coronary artery disease involving shinnecock coronary artery of shinnecock heart without angina pectoris 06/26/2024 4:21 PM EST TSH WITH FREE T4 IF INDICATED Lab Routine Generalized weakness Ambulatory dysfunction Cardiac pacemaker in situ Coronary artery disease involving shinnecock coronary artery of shinne[place] heart without angina pectoris 06/26/2024 4:21 PM EST MAGNESIUM Lab Routine Generalized weakness Ambulatory dysfunction Cardiac pacemaker in situ Coronary artery disease involving shinnecock coronary artery of shinnecock heart without angina pectoris 06/26/2024 4:21 PM EST Scheduled Orders Name Type Priority Associated Diagnoses Orde r Schedule COMPREHENSIVE METABOLIC PANEL Lab Routine Generalized weakness Ambulatory dysfunction Cardiac pacemaker in situ Coronary artery disease involving shinnecock coronary artery of sh[place]ne[place] heart without angina pectoris Expected: 06/26/2024, Expires: 06/26/2025 TSH WITH FREE T4 IF INDICATED Lab Routine Generalized weakness Ambulatory dysfunction Cardiac pacemaker in situ Coronary artery disease involving shinnecock coronary artery of shinnecock heart without angina pectoris Expected: 06/26/2024, Expires: 06/26/2025 MAGNESIUM Lab Routine Generalized weakness Ambulatory dysfunction Cardiac pacemaker in situ Coronary artery disease involving shinnecock coronary artery of sh[place] heart without angina pectoris Expected: 06/26/2024, Expires: 06/26/2025 ECHO, COMPLETE (2D), TRANS-THORACIC Echocardiology Routine Generalized weakness Ambulatory dysfunction Cardiac pacemaker in situ Coronary artery disease involving shinnecock coronary artery of shinnecock heart without angina pectoris Expected: 06/26/2024 (Approximate), Expires: 06/26/2025 Scheduled Referrals Name Type Priority Associated Diagnoses Orde r Schedule PHYSICAL THERAPY REFERRAL OP Referral Within 30 days (routine) Generalized weakness Ambulatory dysfunction Falls Ordered: 06/26/2024 Health Maintenance Due Date Last Done Comments Adult Wellness Visit 08/04/2022 08/04/2021 Colonoscopy 03/22/2023 03/22/2018, 03/02, 02/24/2016, Additional history exists Influenza Vaccine (FLU shot) (#1) 2024 07/01/2023, 04/16/2022, 04/29/2021, Additional history exists HbA1c 10/08/2024 04/10/2024, 04/3 , 06/28/2023, Additional history exists Diabetic Eye Exam 10/26/2024 10/27/2023, (Done elsewhere), 01/28/2023, Additional history exists Diabetic Foot Exam 02/23/2025 02/24/2024 (D one elsewhere), 02/20/2021, 05/20/2020, Additional history exists GFR 04/10/2025 04/10/2024, 11/01, 06/28/2023, Additional history exists Albumin/Creatinine Ratio 05/01/2025 024, 06/28/2023, 04/16/2022, Additional history exists Depression Monitoring 05/01/2025 05/01/2024 O2 ASSESSMENT COMPLETED IN PAST YEAR FOR COPD 06/11/2025 06/11/2024 DTap/Tdap Vaccines (3 - Td or Tdap) [...] this encounter Medical Devices Implanted Type Area Picking Belt Operator Device Identifier Shelf Expiration Date Model / Serial / Lot Cement Antibiotic Bone - [id number] Implanted:Qty: 2 on 06/21/2018 by Sridhar Grant MD at OR [facility] Right: Knee DESHAWN : ORTHOPAEDICS 12/29/2018 6197-9-010 / / [id number] Triathlon Asyetric X3 Patell - [id number] Implanted:Qty: 1 on 06/21/2018 by Sridhar Grant MD at OR [facility] Right: Knee DESHAWN : ORTHOPAEDICS 03/15/2023 5551-G-350 / / [id number] Component Femoral Rt Size 5 T - [id number] Implanted:Qty: 1 on 06/21/2018 by Sridhar Grant MD at OR [facility] Right: Knee DESHAWN : ORTHOPAEDICS 12/10/2022 5510-F-502 / / [id number] Knee Baseplate Mis Tib Tri 5 - [id number] Implanted:Qty: 1 on 06/21/2018 by Sridhar Grant MD at OR [facility] Right: Knee DESHAWN : ORTHOPAEDICS 01/12/2023 5520-M-500 / / [id number] Knee X3 Ins Pos Cs Sz5 9 - [id number] Implanted:Qty: 1 on 06/21/2018 by Sridhar Grant MD at OR [facility] Right: Knee DESHAWN : ORTHOPAEDICS 10/17/2022 5531-G-509 / / [id number] documented as of this encounter Results * (ABNORMAL) CBC (06/26/2024 4:21 PM EST) [facility] WBC 8.47 4.00 - 10.80 K/uL 06/26/2024 4:31 PM EST LABORATORY [facility] 57-10 RBC 4.46 4.50 - 5.25 M/uL 06/26/2024 4:31 PM EST LAB[facility]ATORY [facility] 57-10 HGB 13.6(L) 14.0 - 16.8 g/dL 06/26/2024 4:31 PM EST LAB[facility]ORY [facility] 57-10 HCT 41.6 40.0 - 48.4 % 06/26/2024 4:31 PM EST LAB[facility]ATORY [facility] 57-10 MCV 93.3 82.0 - 99.5 fL 06/26/2024 4:31 PM EST [facility] 57-10 MCH 30.5 27.0 - 34.0 pg 06/26/2024 4:31 PM EST [facility] 57-10 MCHC 32.7 32.0 - 36.0 g/dL 06/26/2024 4:31 PM EST [facility] 57-10 RDW 17.5 11.5 - 15.5 % 06/26/2024 4:31 PM EST [facility] 57-10 PLT 168 140 - 400 K/uL 06/26/2024 4:31 PM EST LAB[facility] 57-10 MPV 8.7 6.6 - 11.1 fL 06/26/2024 4:31 PM EST [facility] [place] [facility] 57-10 Blood Venous blood specimen / Unknown Venipuncture / Unknown 06/26/2024 4:21 PM EST 06/26/2024 4:21 PM EST Malathi Newman PA-C LAB BLOOD ORDERABLES F inal Result LAB[facility]ATORY [facility] 57-10 [address] [place] [address] documented in this encounter Visit Diagnoses Diagnosis Advanced care planning/counseling discussion- Primary Other specified counseling Chronic diastolic CHF (congestive heart failure) (HCC) Chronic diastolic heart failure Centrilobular emphysema (HCC) Other emphysema Dizziness Dizziness and giddiness Generalized weakness- Primary Other malaise and fatigue Ambulatory dysfunction Cardiac pacemaker in situ Coronary artery disease involving shinnecock coronary artery of shinnecock heart without angina pectoris Falls Unspecified fall Dyslipidemia, goal LDL below 70 Other and unspecified hyperlipidemia HTN, goal below 140/90 Unspecified essential hypertension documented in this encounter Advance Directives * [...] patient or by statute hierarchy) Care Teams Probate Clerk Relationship Specialty Start Date End Date Eddie Ruffin MD [address] [place] [address] PCP - General Family Medicine 07/18/14 documented as of this encounter
--- OUTSIDE RECORDS SUMMARY | 2024-07-27 13:14 | External Medical Summary ---
Author Name Unknown Address Unknown Organization [id number]:[facility] [place] [address] [place] [address] Laboratory Report Ordering Provider Test Date Status DYAN RAMIREZ 06/26/2024 16:21:44 Final Observation Date Value Abnormality Reference (Units ) Status TSH 06/26/2024 16:21:44 3.68 0.27-4.20 (uIU/mL) Final Performing Location [facility] [place] [address] [place] [address]
--- OUTSIDE RECORDS SUMMARY | 2024-07-27 13:14 | External Medical Summary ---
Author Name Unknown Address Unknown Organization [id number]:LABORATORY [facility] 57-10 - [address] [place] [address] Laboratory Report Ordering Provider Test Date Status DYAN RAMIREZ 06/26/2024 16:21:44 Final Observation Date Value Abnormality Reference (Units ) Status WBC, Total 06/26/2024 16:21:44 8.47 4.00-10.8 0 (K/uL) Final RBC 06/26/2024 16:21:44 4.46 4.50-5.25 (M/uL) Final Hemoglobin 06/26/2024 16:21:44 13.6 Below low normal 14 .0-16.8 (g/dL) Final HCT 06/26/2024 16:21:44 41.6 40.0-48.4 (%) Final MCV 06/26/2024 16:21:44 93.3 82.0-99.5 (fL) Final MCH 06/26/2024 16:21:44 30.5 27.0-34.0 (pg) Final MCHC 06/26/2024 16:21:44 32.7 32.0-36.0 (g/dL) Final RDW 06/26/2024 16:21:44 17.5 11.5-15.5 (%) Final Platelets 06/26/2024 16:21:44 168 140-400 (K /uL) Final MPV 06/26/2024 16:21:44 8.7 6.6-11.1 ( fL) Final Performing Location LABORATORY [facility] 57-1 0 - [address] [place] [address]
--- OUTSIDE RECORDS SUMMARY | 2024-07-27 13:14 | External Medical Summary ---
Author Name Unknown Address Unknown Organization [id number]:[facility] [place] [address] [facility] [address] Laboratory Report Ordering Provider Test Date Status DYAN RAMIREZ 06/26/2024 16:21:44 Final Observation Date Value Abnormality Reference (Units ) Status BUN 06/26/2024 16:21:44 18 6-20 (mg/dL) Final Creatinine 06/26/2024 16:21:44 1.2 0.6-1.2 (mg/dL) Final Glomerular filtration rate/1.73 sq M.predicted [Volume Rate/Area] in Serum, Plasma or Blood by Creatinine-based formula (CKD-EPI) 06/26/2024 16:21:44 65 >=60 (mL/min) Final eGFR is calculated based on the CKD-EPI 2020 equation. Sodium 06/26/2024 16:21:44 136 135-146 (m mol/L) Final Potassium 06/26/2024 16:21:44 4.5 3.5-5.1 (m mol/L) Final Cl 06/26/2024 16:21:44 100 98-107 (mm ol/L) Final CO2 06/26/2024 16:21:44 22 22-32 (mmo l/L) Final Anion gap 06/26/2024 16:21:44 14 7-15 (mmol /L) Final Glucose 06/26/2024 16:21:44 163 Above high normal 70 -120 (mg/dL) Final Albumin 06/26/2024 16:21:44 4.5 3.8-5.0 (g /dL) Final AST (Aspartate aminotransferase) 06/26/2024 16:21:44 33 10-50 (U/L) Fin al Alk Phos 06/26/2024 16:21:44 95 35-130 (U/ L) Final Bilirubin, Total 06/26/2024 16:21:44 0.4 <=1 .2 (mg/dL) Final Calcium 06/26/2024 16:21:44 10.2 8.4-10.2 ( mg/dL) Final Protein 06/26/2024 16:21:44 7.2 6.0-8.3 (g /dL) Final ALT (Alanine aminotransferase) 06/26/2024 16:21:44 32 10-50 (U/L) Marcelino mendes Performing Location [facility] [place] [address] [facility] [address]
--- OUTSIDE RECORDS SUMMARY | 2024-07-27 13:14 | External Medical Summary | Summary of Care ---
Author Name Unknown Organization [facility] Address [address] [place] [address] Phone [phone] Care Team Providers Care Property Condition Assessor Name Role Phone Eddie Ruffin MD Primary Care Provider + Reason for Visit * Reason Comments Return Visit 3 month return-open area on left ankle/heel Encounter Details Date Type Department Care Team (Late st Contact Info) Description 07/17/2024 3:20 PM EST Office Visit Family [facility] [address] [place] [address] Eddie Ruffin MD [address] [place] [address] HTN, goal below 140/90*; DM type 2 [...] Each 11 10/17/19 24 Active Dexcom G7 [place] Program Coordinator Device Use to read blood glucose values with dexcom G7 sensor E 11.9 1 Each 10/17/19 24 Active Isosorbide Mononitrate ER 30 MG Oral Tablet Extended Release 24 Hour (Imdur)Indicatio ns:Atheroscleros is of [place] coronary artery of [place] heart without angina pectoris TAKE 1 [...] hemoglobin A1c goal of less than 8.0% ([facility]) Take 1 Tablet by mouth in the morning 30 minutes before a meal. 30 Tablet 5 4 12:10 PM EST 12/30/19 24 Active Pantoprazole Sodium 40 MG Oral Tablet Delayed Release (Protonix)Indica tions:Esophageal obstruction TAKE 1 TABLET BY MOUTH DAILY. 90 Tablet 3 4 2:04 PM EST 01/03/20 24 Active Incruse Ellipta 62.5 MCG/ACT Inhalation Aerosol Powder Breath Activated (umeclidinium [place]) inhale ONE puff DAILY. 30 Each 7 [...] hemoglobin A1c goal of less than 8.0% ([facility]) INJECT 55 UNITS UNDER THE SKIN AT [...] Oral Tablet (Mag-Ox)Indicati ons:SSS (sick sinus syndrome) ([facility]),Dyslipidem ia, goal LDL below 70,HTN, goal below [...] - LAMA Self-Management plan o Other: call [facility] Exacerbation plan o Has not required [...] prep) 06/14 abnormal stress test--[place] [facility]mild nonobstructive CAD> patent stent. Cont med mgmt 08/14 BRIGITTE- mod BPH 08/14 TTE normal EF, Gr I saavedra Dys, EGD-dilated Schatzki ring 06/13 PFT--normal spirometry with low norm obstructive index. No response to dilator. Normal diffusing. Some air trapping, suggestive flow patterns for obstruction. Acute. HTN, goal below 130/80 05/02/2012 Coronary artery disease invo lving [place] coronary artery of [place] heart without angina pectoris 03/06/2012 Overview (04/26/2016): 1. S/p NSTEMI--CAD, NSTEMI , PCI with a bare metal stent to the OM1 on 02/03/12 at [facility] 2. Patent OM1 stent with mild nonobstructive CAD noted elsewhere via the 06/24/[address] [facility] [place] abnormal nuclear stress testing History of [...] disease witho ut cerebral infarction 09/22/2018 08/11/2022 manager terminal (current) use of insulin 08/08/2018 08/11/2022 [place] (myocardial infarction) 07/03/2018 08/08/2018 Cataract, diabetic 07/03/2018 [...] 2012 PFT-low normal 08/14 [facility]-upper lobe emphysema, possible basilar fibrosis Lung density on x-ray 06/04/20132013 Overview (06/04/2013): 06/13 density -repeat CXR 1mo Overweight (BMI 25.0-29.9) 04/03/2013 0 04/28/2017 Cough 10/24/2012 05/25/2013 Acute bronchitis, antibiotics not indicated 10/11/2012 05/25/2013 Impacted cerumen 10/11/2012 04/28/2017 Dermatitis 10/11/2012 04/28/2017 HTN, goal below 140/80 03/20/201205/02 Overview: Per HTN Protocol #27. Dyslipidemia, goal LDL below 70 02/07/2012 08/11/2022 [employer] Other*[id number] 02/03/2012 09/07/2016 History of non-ST elevation myocardial [...] file Not on file Not on file now---signs cleaner [facility] Not on file Not on [...] calluses yourself. Talk to your doctor or critical care educator (a doctor who specializes in foot care) [...] the area doesnt appear to be healing. [phone] [employer], [address] [place] [address], [place] [address]. All rights reserved. This information is not [...] vision changes BP was high recently at [facility] as well. Objective Blood pressure 200/84, pulse [...] headache at present. No new medications or tozp-bta-zygemmv cold/cough medications. No chest pain or other [...] the morning and 1 Tablet before bedtime. DM type 2 nursing care encounter [...] in this note was generated using an [employer] documentation service. I discussed the use of [...] 2:30 PM EST Cardiac Studies Cardiac Studies, [facility] [address] [facility] [place] [address] 08/02/2024 9:00 AM EST Office Visit Family Practice [facility] [address] [facility] [place] [address] Eddie Ruffin MD [address] [facility] [place] [address] 08/27/2024 2:45 PM EST Office Visit Urology, [facility] [address] [facility] [place] [address] Valentín Sampson MD [address] [place] [address] 10/19/2024 2:00 PM EDT Office Visit [facility] [address] [facility] [place] [address] Eddie Ruffin MD [address] [place] [address] 10/29/2024 10:30 AM EDT Office Visit Cardiology, [facility] [address] [facility] [place] [address] Kana Somers PA-C [address] [place] [address] 03/12/2025 3:20 PM EDT Office Visit [facility] [address] [facility] [place] [address] Eddie Ruffin MD [address] [place] [address] Health Maintenance Due Date Last Done Comments Adult Wellness Visit 08/04/2022 08/04/2021 Colonoscopy 03/22/2023 03/22/2018, 03/02, 02/24/2016, Additional history exists Influenza Vaccine (FLU shot) (#1) 2024 07/01/2023, 04/16/2022, 04/29/2021, Additional history exists *NEPHROLOGY REFERRAL DUE TO RESISTANT HTN 06/29/2024 HbA1c 10/08/2024 04/10/2024, 11/01, 06/28/2023, Additional history exists Diabetic Eye Exam 10/26/2024 10/27/2023, (Done elsewhere), 01/28/2023, Additional history exists Albumin/Creatinine Ratio 05/01/20252 024, 06/28/2023, 04/16/2022, Additional history exists Depression [...] this encounter Medical Devices Implanted Type Area Employment Training Specialist Device Identifier Shelf Expiration Date Model / Serial / Lot Cement Antibiotic Bone - [id number] Implanted:Qty: 2 on 06/21/2018 by Sridhar Grant MD at [place] [facility] Right: Knee DESHAWN : ORTHOPAEDICS 12/29/2018 6197-9-010 / / [id number] Triathlon Asyetric X3 Patell - [id number] Implanted:Qty: 1 on 06/21/2018 by Sridhar Grant MD at [facility] Right: Knee DESHAWN : ORTHOPAEDICS 03/15/2023 5551-G-350 / / 1VE Component Femoral Rt Size 5 T - [id number] Implanted:Qty: 1 on 06/21/2018 by Sridhar Grant MD [place] [facility] Right: Knee DESHAWN : ORTHOPAEDICS 12/10/2022 5510-F-502 / / [id number] Knee Baseplate Mis Tib Tri 5 - [id number] Implanted:Qty: 1 on 06/21/2018 by Sridhar Grant MD at [facility] Right: Knee DESHAWN : ORTHOPAEDICS 01/12/2023 5520-M-500 / / [id number] Knee X3 Ins Pos Cs Sz5 9 - [id number] Implanted:Qty: 1 on 06/21/2018 by Sridhar Grant MD at OR [facility] Right: Knee DESHAWN : ORTHOPAEDICS 10/17/2022 5531-G-509 / / [id number] documented as of this encounter Visit Diagnoses [...] patient or by statute hierarchy) Care Teams Property Condition Assessor Relationship Specialty Start Date End Date Eddie Ruffin MD [address] [place] [address] PCP - General Family Medicine 07/18/14 documented as of this encounter
--- OUTSIDE RECORDS SUMMARY | 2024-07-27 13:14 | External Medical Summary ---
Author Name Unknown Address Unknown Organization K01:LAB[facility]ATORY [facility] - [address] [place] [address] Laboratory Report Ordering Provider Test Date Status DYAN RAMIREZ 06/26/2024 16:21:44 Final Observation Date Value Abnormality Reference (Units ) Status Magnesium 06/26/2024 16:21:44 1.6 1.5-2.6 (m g/dL) Final Performing Location LABORATORY [facility] - [address] [place] [address]
--- OUTSIDE RECORDS SUMMARY | 2024-07-27 13:14 | External Medical Summary | Summary of Care ---
Author Name Unknown Organization [facility] Address [address] [place] [address] Phone [phone] Care Team Providers Care License Inspector Name Role Phone Eddie Ruffin MD Primary Care Provider + Reason for Visit * Reason Onset Date Comments Medication Refill 07/06/2024 Encounter Details Date Type Department Care Team (Late st Contact Info) Description 07/06/2024 Refill Cardiology, [facility] [address] [place] [address] Ashley Zaidi PA-C [address] [place] [address] HTN, goal below 140/90*; SSS (sick sinus syndrome) (HCC); Dyslipidemia, goal LDL below 70 Allergies Active Allergy Reactions Criticality Noted Date Comments Formoterol High 02/16/2022 Other reaction(s): RASH Lisinopril Cough Low 10/24/2012 Penicillins Other (Please comment) 08/15/2013 Family hx allergic reaction Simvastatin High 02/16/2022 Other reaction(s): RASH documented as of this encounter (statuses as of 07/06/2024) Medications Aspirin 81 MG Oral Tablet Delayed Release Take 1 Tablet by mouth in the morning. Active Nitroglycerin 0.6 MG Sublingual Tablet Sublingual (Nitrostat)Indic ations:chest pain Place 1 Tablet under the tongue every 5 minutes as needed. Active Fluocinolone Acetonide Scalp 0.01 % External Oil Apply to scalp before beed once weekly for 3 total treatments 118.28 mL 3 4:20 PM EST 08/13/19 Active Triamcinolone Acetonide 0.1 % External Cream [...] every 10 days E 11.9 3 Each 10/17/19 24 Active Dexcom G7 Facilities Coordinator Device Use to read blood glucose values with dexcom G7 sensor E 11.9 1 Each 10/17/19 24 Active Isosorbide Mononitrate ER 30 MG Oral Tablet Extended Release 24 Hour (Imdur)Indicatio ns:Atheroscleros is of [place] coronary artery of [place] heart without angina pectoris TAKE 1 TABLET BY MOUTH IN THE MORNING 30 Tablet 11 4 12:10 PM EST 12/02/19 24 025 Active Vitron-C [...] of less than 8.0% ([facility]) Take 1 Tablet by mouth in the morning 30 minutes before a meal. 30 Tablet 5 4 12:10 PM EST 12/30/19 24 Active Pantoprazole Sodium 40 MG Oral Tablet Delayed Release (Protonix)Indica tions:Esophageal obstruction TAKE 1 TABLET BY MOUTH DAILY. 90 Tablet 3 4 2:59 PM EDT 01/03/20 24 Active Incruse Ellipta 62.5 MCG/ACT Inhalation Aerosol Powder Breath Activated (umeclidinium [place]) inhale ONE puff DAILY. 30 Each 7 4 11:52 AM EDT 01/13/20 24 025 Active Losartan Potassium 25 MG Oral Tablet (Cozaar)Indicati ons:Hypertensive heart disease with chronic diastolic congestive heart failure (HCC),HTN, goal below 140/90 Take 1 Tablet by mouth in the morning. 90 Tablet 3 4 1:38 PM EDT 01/25/20 24 Active Clobetasol Propionate 0.05 % External SolutionIndicati [...] bedtime with food. 60 Tablet 11 4 12:10 PM EST 04/11/20 24 Active Sertraline HCl 100 MG Oral Tablet (Zoloft)Indicati ons:ANKITA (generalized anxiety disorder),Dysthy rodney Take 1 and 1/2 Tablet by mouth in the morning. 45 Tablet 5 4 11:52 AM EDT 04/14/20 24 Active metFORMIN HCl 1000 MG Oral Tablet (Glucophage)Anitha cations:DM type 2 causing neurological disease (HCC) TAKE 1 TABLET BY MOUTH TWICE DAILY WITH MORNING AND EVENING MEALS. 180 Tablet 3 4 1:38 PM EDT 04/16/20 24 025 Active Insulin Glargine 100 UNIT/ML Subcutaneous Solution (Lantus)Indicati ons:Type 2 diabetes mellitus with hemoglobin A1c goal of less than 8.0% ([facility]) INJECT 55 UNITS UNDER THE SKIN AT [...] FOR ANXIETY/INSOMNIA . 60 Tablet 5 4 12:44 PM EST 06/01/20 24 Active Magnesium Oxide -Mg Supplement 400 (240 Mg) MG Oral Tablet (Mag-Ox)Indicati ons:SSS (sick sinus syndrome) ([facility]),Dyslipidem ia, goal LDL below 70,HTN, goal below 140/90 Take 1 Tablet by mouth in the morning and 1 Tablet before bedtime. 180 Tablet 3 07/06/20 24 Active Magnesium Oxide -Mg Supplement 400 (240 Mg) MG Oral Tablet (Mag-Ox) Take 1 Tablet by mouth in the morning and 1 Tablet before bedtime. 180 Tablet 3 3 9:35 AM EST 01/21/20 23 024 Discontin ued(Refil l) documented as of this encounter (statuses as of 07/06/2024) Active Problems Problem Noted Date Diagnosed Date [...] - LAMA Self-Management plan o Other: call [facility] Exacerbation plan o Has not required [...] prep) 06/14 abnormal stress test--[place]mild nonobstructive CAD> patent stent. Cont med mgmt 08/14 BRIGITTE- mod BPH 08/14 TTE normal EF, Gr I saavedra Dys, EGD-dilated Schatzki ring 06/13 PFT--normal spirometry with low norm obstructive index. No response to dilator. Normal diffusing. Some air trapping, suggestive flow patterns for obstruction. Acute. HTN, goal below 130/80 05/02/2012 Coronary artery disease invo lving [place] coronary artery of [place] heart without angina pectoris 03/06/2012 Overview (04/26/2016): 1. S/p NSTEMI--CAD, NSTEMI , PCI with a bare metal stent to the OM1 on 02/03/12 at [facility] 2. Patent OM1 stent with mild nonobstructive CAD noted elsewhere via the 06/24/14 catheterization at [facility] following abnormal nuclear stress testing History of [...] as of this encounter (statuses as of 07/06/2024) Resolved Problems Problem Noted Date Diagnosed Date [...] disease witho ut cerebral infarction 09/22/2018 08/11/2022 long-term (current) use of insulin 08/08/2018 08/11/2022 Old [place] (myocardial infarction) 07/03/2018 08/08/2018 Cataract, diabetic 07/03/2018 [...] airways disease. 2012 PFT-low normal 08/14 [facility]-upper lobe emphysema, possible basilar fibrosis Lung density on x-ray 06/04/20132013 Overview (06/04/2013): 06/13 density -repeat CXR 1mo Overweight (BMI 25.0-29.9) 04/03/2013 0 04/28/2017 Cough 10/24/2012 05/25/2013 Acute bronchitis, antibiotics not indicated 10/11/2012 05/25/2013 Impacted cerumen 10/11/2012 04/28/2017 Dermatitis 10/11/2012 04/28/2017 HTN, goal below 140/80 03/20/201205/02 Overview: Per HTN Protocol #27. 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 She said that he is taking Mag Ox 400mg twice daily. She said that she has been purchasing [facility]. She said he ran out this week and she needed to buy more. Asked if she would like a prescription sent to pharmacy and she agreed. Prescription pended. * Telephone Encounter - Blanca Espinoza LPN - 07/06/2024 11:15 AM EST ----- Message from Ashley Zaidi sent at 07/06/2024 10:18 AM EST ----- Labs reviewed Normal kidney function, electrolytes, liver function Hbg improved from 2 months ago. Good Thyroid level is normal Magnesium level is low normal. See if he is still taking mag ox 400 mg twice daily as listed in chart? No recent refills... If not taking, would like him to resume at least 400 mg - 1 tab daily. Repeat magnesium level in 1 month documented in this encounter Plan of Treatment Upcoming Encounters Date Type Department Care Team (Late st Contact Info) Description 07/17/2024 3:20 PM EST Office Visit Family Practice [facility] [address] [place] [address] Eddie Ruffin MD [address] [place] [address] 07/30/2024 2:30 PM EST Cardiac Studies Cardiac Studies, [facility] [address] [facility] [place] [address] 08/27/2024 2:45 PM EST Office Visit Urology, [facility] [address] [facility] [place], [place] [address] Valentín Sampson MD [address] [place] [address] 10/19/2024 2:00 PM EDT Office Visit [facility] [address] [facility] [place] [address] Eddie Ruffin MD 132 [facility] [place] [address] 03/12/2025 3:20 PM EDT Office Visit [facility] [address] [facility] [place] [address] Eddie Ruffin MD 132 [facility] [place] [address] Scheduled Orders Name Type Priority Associated Diagnoses Orde r Schedule MAGNESIUM Lab Routine SSS (sick sinus syndrome) (HCC) Dyslipidemia, goal LDL below 70 HTN, goal below 140/90 Expected: 08/06/2024 (Approximate), Expires: 07/06/2025 Health Maintenance Due Date Last Done Comments [...] this encounter Medical Devices Implanted Type Area Environmental Health And Safety Manager Device Identifier Shelf Expiration Date Model / Serial / Lot Cement Antibiotic Bone - [id number] Implanted:Qty: 2 on 06/21/2018 by Sridhar Grant MD at [place] [facility] Right: Knee DESHAWN : ORTHOPAEDICS 12/29/2018 6197-9-010 / / [id number] Triathlon Asyetric X3 Patell - [id number] Implanted:Qty: 1 on 06/21/2018 by Sridhar Grant MD at [place] [facility] Right: Knee DESHAWN : ORTHOPAEDICS 03/15/2023 5551-G-350 / / 1VE Component Femoral Rt Size 5 T - [id number] Implanted:Qty: 1 on 06/21/2018 by Sridhar Grant MD at [place] [facility] Right: Knee DESHAWN : ORTHOPAEDICS 12/10/2022 5510-F-502 / / [id number] Knee Baseplate Mis Tib Tri 5 - [id number] Implanted:Qty: 1 on 06/21/2018 by Sridhar Grant MD at [place] [facility] Right: Knee DESHAWN : ORTHOPAEDICS 01/12/2023 5520-M-500 / / [id number] Knee X3 Ins Pos Cs Sz5 9 - [id number] Implanted:Qty: 1 on 06/21/2018 by Sridhar Grant MD at [place] [facility] Right: Knee DESHAWN : ORTHOPAEDICS 10/17/2022 5531-G-509 / / [id number] documented as of this encounter Visit Diagnoses Diagnosis Advanced care planning/counseling discussion- Primary Other specified counseling Chronic diastolic CHF (congestive heart failure) (HCC) Chronic diastolic heart failure Centrilobular emphysema (HCC) Other emphysema Dizziness Dizziness and giddiness HTN, goal below 140/90- Primary Unspecified essential hypertension SSS (sick sinus syndrome) (HCC) Sinoatrial node dysfunction Dyslipidemia, goal LDL below 70 Other and unspecified hyperlipidemia documented in this encounter Advance Directives * [...] Relationship Healthcare Agent Relationshi p Communication Gabi Pal Spouse Health Care Repr esentative (appointed verbally by patient or by statute hierarchy) Care Teams License Inspector Relationship Specialty Start Date End Date Eddie Ruffin MD [address] [place] [address] PCP - General Family Medicine 07/18/14 documented as of this encounter
--- OUTSIDE RECORDS SUMMARY | 2024-07-27 13:15 | External Medical Summary | Summary of Care ---
Author Name Unknown Organization [facility] Address [address] [place] [address] Phone [phone] Care Team Providers Care Senior Logistics Manager Name Role Phone Eddie Ruffin MD Primary Care Provider + Encounter Details Date Type Department Care Team (Late st Contact Info) Description 06/07/2024 Population Health External Data Unspecified Department Allergies Active Allergy Reactions Criticality Noted Date Comments Formoterol High 02/16/2022 Other reaction(s): RASH Lisinopril Cough Low 10/24/2012 Penicillins Other (Please comment) 08/15/2013 Family hx allergic reaction Simvastatin High 02/16/2022 Other reaction(s): RASH documented as of this encounter (statuses as of 06/14/2024) Medications Aspirin 81 MG Oral Tablet Delayed [...] Shortness of Breath, Wheezing,Indications: COPD, Reported on 06/11/2024 Fleet Liquid Glycerin Supp 5.4 GM/DOSE Rectal [...] 3 Each 11 4 Active Dexcom G7 Home Insurance Agent Device Use to read blood glucose values with dexcom G7 sensor E 11.9 1 Each 4 Active Isosorbide Mononitrate ER 30 MG Oral Tablet Extended Release 24 Hour (Imdur)Indicatio ns:Atheroscleros is of [place] coronary artery of [place] heart without angina pectoris TAKE 1 TABLET BY MOUTH IN THE MORNING 30 Tablet 11 05/14/2024 2:04 PM EDT 4 025 Active Vitron-C 65-125 MG Oral Tablet (Iron-Vitamin C 65-125 mg per tab) Take 1 Tablet by mouth once a day on Tuesday, Tuesday, and Tuesday only. Active Atorvastatin Calcium 20 MG Oral Tablet (Lipitor)Indicat ions:Dyslipidemi a, goal LDL below 70 Take 1 Tablet by mouth in the morning. Do not start until 12/21/23. 100 Tablet 3 03/15/2024 1:40 PM EDT 4 Active glipiZIDE 10 MG Oral Tablet (Glucotrol)Indic ations:Type 2 diabetes mellitus with hemoglobin A1c goal of less than 8.0% ([facility]) Take 1 Tablet by mouth in the morning 30 minutes before a meal. 30 Tablet 5 05/07/2024 1:32 PM EDT 4 Active Pantoprazole Sodium 40 MG Oral Tablet Delayed Release (Protonix)Indica tions:Esophageal obstruction TAKE 1 TABLET BY MOUTH DAILY. 90 Tablet 3 04/03/2024 2:59 PM EDT 4 Active Incruse Ellipta 62.5 MCG/ACT Inhalation Aerosol Powder Breath Activated (umeclidinium [place]) inhale ONE puff DAILY. 30 Each 7 [...] before bedtime with food. 60 Tablet 11 05/14/2024 2:04 PM EDT 4 Active Sertraline HCl 100 MG Oral [...] as of this encounter (statuses as of 06/14/2024) Active Problems Problem Noted Date Diagnosed Date [...] ith chronic diastolic congestive heart failure 10/14/2022 S/P biventricular cardiac pacemaker procedure Orthostatic hypotension 08/13/2022 Dyslipidemia 08/11/2022 Lumbar degenerative [...] - LAMA Self-Management plan o Other: call [facility] Exacerbation plan o Has not required in [...] prep) 06/14 abnormal stress test--[place] [place]mild nonobstructive CAD> patent stent. Cont med mgmt 08/14 BRIGITTE- mod BPH 08/14 TTE normal EF, Gr I saavedra Dys, EGD-dilated Schatzki ring 06/13 PFT--normal spirometry with low norm obstructive index. No response to dilator. Normal diffusing. Some air trapping, suggestive flow patterns for obstruction. Acute. HTN, goal below 130/80 05/02/2012 Coronary atherosclerosis of [place] coronary [place] ry 03/06/2012 Overview (04/26/2016): 1. S/p NSTEMI--CAD, NSTEMI , PCI with a bare metal stent to the OM1 on 02/03/12 at [facility] 2. 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 2012 PFT-low normal 08/14 [facility]-upper lobe emphysema, possible basilar fibrosis Lung density on x-ray 06/04/20132013 Overview (06/04/2013): 06/13 density -repeat CXR 1mo Overweight (BMI 25.0-29.9) 04/03/2013 0 04/28/2017 Cough 10/24/2012 05/25/2013 Acute bronchitis, antibiotics not indicated 10/11/2012 05/25/2013 Impacted cerumen 10/11/2012 04/28/2017 Dermatitis 10/11/2012 04/28/2017 HTN, goal below 140/80 03/20/201205/02 Overview: Per HTN Protocol #27. Dyslipidemia, goal LDL below 70 02/07/2012 08/11/2022 [facility] Other*[id number] 02/03/2012 09/07/2016 History of non-ST elevation myocardial [...] subarachnoid hemorrhage 06/13/2008 10/18/2019 Overview (10/18/2019): Historical. HTN, goal below 140/90 04/09/200808/27 Overview (08/27/2009): Per HTN Taxonomy. DM type 2, not at goal 04/09/200805/15 [...] as of this encounter (statuses as of 06/14/2024) Immunizations Name Administration Dates Next Due COVID-19 mRNA, LNP-s, No Pre serve, 2-Dose Series ([employer]) 11/05/2020,10/13/2020 H1N1 2009 Influenza, IM 09/18/2009 Pneumococcal [...] No 05/01/2024 Does the household have a [facility] source of income? 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 [facility] Not on file Not on [...] Assessment Author No 06/21/2018 3:00 PM Meaghan Sauceda RN * Do you have difficulty dressing [...] Meaghan Fisher RN documented in this encounter Plan of Treatment Upcoming Encounters Date Type Department Care Team (Late st Contact Info) Description 06/26/2024 3:30 PM EST Office Visit Cardiology, [facility] [address] [place] [address] Malathi Newman PA-C [address] [place] [address] 07/03/2024 10:45 AM EST Office Visit Dermatology [facility] [address] [place] [address] Imer Jose MD [address] [facility] [place] [address] 07/03/2024 2:25 PM EST Office Visit Hematology/Oncology [facility] [address] [place] [phone] Sy Dong MD [address] [facility] [place] [address] 07/17/2024 3:20 PM EST Office Visit Family Practice [facility] [address] [place] [address] Eddie Ruffin MD [address] [place] [address] 08/27/2024 2:45 PM EST Office Visit Urology, [facility] [address] [place] [address] Valentín Sampson MD [address] [place] [address] 10/19/2024 2:00 PM EDT Office Visit Family [facility] [address] [place] [address] Eddie Ruffin MD [address] [place] [address] 03/12/2025 3:20 PM EDT Office Visit [facility] [address] [place] [address] Eddie Ruffin MD [address] [place] [address] Health Maintenance Due Date Last Done Comments Adult Wellness Visit 08/04/2022 08/04/2021 Colonoscopy 03/22/2023 03/22/2018, 03/02, 02/24/2016, Additional history exists Influenza Vaccine (FLU shot) (#1) 2024 07/01/2023, 04/16/2022, 04/29/2021, Additional history exists HbA1c 10/08/2024 04/10/2024, 04/, 06/28/2023, Additional history exists Diabetic Eye Exam 10/26/2024 10/27/2023, (Done elsewhere), 01/28/2023, Additional history exists Diabetic Foot Exam 02/23/2025 02/24/2024 (D one elsewhere), 02/20/2021, 05/20/2020, Additional history exists GFR 04/10/2025 04/10/2024, 04/3 , 06/28/2023, Additional history exists Albumin/Creatinine Ratio 05/01/2025 [...] this encounter Medical Devices Implanted Type Area Supervisor Twisting Department Device Identifier Shelf Expiration Date Model / Serial / Lot Cement Antibiotic Bone - [id number] Implanted:Qty: 2 on 06/21/2018 by Sridhar Garnt MD at [place] [facility] [place] Right: Knee DESHAWN : ORTHOPAEDICS 12/29/2018 6197-9-010 / / [id number] Triathlon Asyetric X3 Patell - [id number] Implanted:Qty: 1 on 06/21/2018 by Sridhar Grant MD at [place] [facility] [place] Right: Knee DESHAWN : ORTHOPAEDICS 03/15/2023 5551-G-350 / / [id number] Component Femoral Rt Size 5 T - [id number] Implanted:Qty: 1 on 06/21/2018 by Sridhar Grant MD at [place] [facility] [place] Right: Knee DESHAWN : ORTHOPAEDICS 12/10/2022 5510-F-502 / / [id number] Knee Baseplate Mis Tib Tri 5 - [id number] Implanted:Qty: 1 on 06/21/2018 by Sridhar Grant MD at [place] [facility] [place] Right: Knee DESHAWN : ORTHOPAEDICS 01/12/2023 5520-M-500 / / [id number] Knee X3 Ins Pos Cs Sz5 9 - [id number] Implanted:Qty: 1 on 06/21/2018 by Sridhar Grant MD at [place] [facility] [place] Right: Knee DESHAWN : ORTHOPAEDICS 10/17/2022 5531-G-509 / / [id number] documented as of this encounter Advance Directives * Full Code [...] patient or by statute hierarchy) Care Teams Senior Logistics Manager Relationship Specialty Start Date End Date Eddie Ruffin MD [address] [place] [address] PCP - General Family Medicine 07/18/14 documented as of this encounter
--- OUTSIDE RECORDS SUMMARY | 2024-07-27 13:15 | External Medical Summary | Summary of Care ---
Author Name Unknown Organization [facility] Address [address] [place] [address] Phone [phone] Care Team Providers Care Microgrinder Operator Name Role Phone Eddie Ruffin MD Primary Care Provider + Reason for Visit * Reason Onset Date Comments Appointment 06/12/2024 3 day urgent, oleary spected BCC of scalp Encounter Details Date Type Department Care Team (Late st Contact Info) Description 06/12/2024 Telephone Dermatology [facility] [address] [place] [address] Services, Scheduling [address] [place] [address] Appointment (3 day urgent, suspected BCC o... Allergies Active Allergy Reactions Criticality Noted Date Comments Formoterol High 02/16/2022 Other reaction(s): RASH Lisinopril Cough Low 10/24/2012 Penicillins Other (Please comment) 08/15/2013 Family hx allergic reaction Simvastatin High 02/16/2022 Other reaction(s): RASH documented as of this encounter (statuses as of 06/12/2024) Medications Aspirin 81 MG Oral Tablet Delayed [...] 3 Each 11 4 Active Dexcom G7 Vending Stand Supervisor Device Use to read blood glucose values with dexcom G7 sensor E 11.9 1 Each 4 Active Isosorbide Mononitrate ER 30 MG Oral Tablet Extended Release 24 Hour (Imdur)Indicatio ns:Atheroscleros is of [place] coronary artery of [place] heart without angina pectoris TAKE 1 TABLET [...] hemoglobin A1c goal of less than 8.0% ([facility]) Take 1 Tablet by mouth in the morning 30 minutes before a meal. 30 Tablet 5 05/07/2024 1:32 PM EDT 4 Active Pantoprazole Sodium 40 MG Oral Tablet Delayed Release (Protonix)Indica tions:Esophageal obstruction TAKE 1 TABLET BY MOUTH DAILY. 90 Tablet 3 04/03/2024 2:59 PM EDT 4 Active Incruse Ellipta 62.5 MCG/ACT Inhalation Aerosol Powder Breath Activated (umeclidinium [place]) inhale ONE puff DAILY. 30 Each 7 [...] as of this encounter (statuses as of 06/12/2024) Active Problems Problem Noted Date Diagnosed Date [...] - LAMA Self-Management plan o Other: call [facility] Exacerbation plan o Has not required [...] 06/14 abnormal stress test--referred for CATH @[facility]--mild nonobstructive CAD> patent stent. Cont med mgmt 08/14 BRIGITTE- mod BPH 08/14 TTE normal EF, Gr I saavedra Dys, EGD-dilated Schatzki ring 06/13 PFT--normal spirometry with low norm obstructive index. No response to dilator. Normal diffusing. Some air trapping, suggestive flow patterns for obstruction. Acute. HTN, goal below 130/80 05/02/2012 Coronary atherosclerosis of [place] coronary kelby ry 03/06/2012 Overview (04/26/2016): 1. S/p NSTEMI--CAD, NSTEMI , PCI with a bare metal stent to the OM1 on 02/03/12 at [facility] 2. Patent OM1 stent with mild nonobstructive CAD noted elsewhere via the 06/24/14 catheterization at [facility] following abnormal nuclear stress testing History of [...] as of this encounter (statuses as of 06/12/2024) Resolved Problems Problem Noted Date Diagnosed Date [...] disease witho ut cerebral infarction 09/22/2018 08/11/2022 longterm (current) use of insulin 08/08/2018 08/11/2022 Old DC (myocardial infarction) 07/03/2018 08/08/2018 Cataract, diabetic 07/03/2018 [...] airways disease. 2012 PFT-low normal 08/14 [facility]-upper lobe emphysema, possible basilar fibrosis Lung density on x-ray 06/04/20132013 Overview (06/04/2013): 06/13 density -repeat CXR 1mo Overweight (BMI 25.0-29.9) 04/03/2013 0 04/28/2017 Cough 10/24/2012 05/25/2013 Acute bronchitis, antibiotics not indicated 10/11/2012 05/25/2013 Impacted cerumen 10/11/2012 04/28/2017 Dermatitis 10/11/2012 04/28/2017 HTN, goal below 140/80 03/20/201205/02 Overview: Per HTN Protocol #27. Dyslipidemia, goal LDL below 70 02/07/2012 08/11/2022 [employer] [facility] Other*[id number] 02/03/2012 09/07/2016 History of non-ST elevation myocardial [...] as of this encounter (statuses as of 06/12/2024) Immunizations Name Administration Dates Next Due COVID-19 mRNA, LNP-s, No Pre serve, 2-Dose Series ([employer]) 11/05/2020,10/13/2020 H1N1 2009 Influenza, IM 09/18/2009 Pneumococcal [...] No 05/01/2024 Does the household have a [facility] source of income? 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 * Telephone Encounter - Diego Mckeon OSA - 06/12/2024 11:26 AM EST Pt has a 3 day urgent referral for suspected BCC of scalp. Please return call to [phone]. Thank you! documented in this encounter Plan of Treatment Upcoming Encounters Date Type Department Care Team (Late st Contact Info) Description 06/26/2024 3:30 PM EST Office Visit [facility], [facility] [address] [facility] [place] [address] Malathi Newman PA-C [address] [place] [address] 07/03/2024 10:45 AM EST Office Visit Dermatology [facility] [address] [place] [address] Imer Jose MD [address] [place], [place] [address] 07/03/2024 2:25 PM EST Office Visit Hematology/Oncology [facility] [address] [place] [id number] Sy Dong MD [address] [place] [address] 07/17/2024 3:20 PM EST Office Visit Family [facility] [address] [facility] [place] [address] Eddie Ruffin MD [address] [place] [address] 08/27/2024 2:45 PM EST Office Visit Urology, [facility] [address] [facility] [place] [address] Valentín Sampson MD [address] [place] [address] 10/19/2024 2:00 PM EDT Office Visit Family [facility] [address] [place] [address] Eddie Ruffin MD [address] [facility] [place] [address] 03/12/2025 3:20 PM EDT Office Visit Family Practice [facility] [address] [place] [address] Eddie Ruffin MD [address] [place] [address] Health Maintenance Due Date Last Done Comments Adult Wellness Visit 08/04/2022 08/04/2021 Colonoscopy 03/22/2023 03/22/2018, 03/02, 02/24/2016, Additional history exists Influenza Vaccine (FLU shot) (#1) 2024 07/01/2023, 04/16/2022, 04/29/2021, Additional history exists HbA1c 10/08/2024 04/10/2024, 11/01, 06/28/2023, Additional history [...] this encounter Medical Devices Implanted Type Area Jacket Changer Device Identifier Shelf Expiration Date Model / Serial / Lot Cement Antibiotic Bone - [id number] Implanted:Qty: 2 on 06/21/2018 by Sridhar Grant MD at OR [facility] Right: Knee DESHAWN : ORTH[employer] 12/29/2018 [id number] / / [id number] Triathlon Asyetric X3 Patell - [id number] Implanted:Qty: 1 on 06/21/2018 by Sridhar Grant MD at OR [facility] Right: Knee DESHAWN : ORTHOPA[employer] 03/15/2023 [id number]-G-[id number] / / [id number] Component Femoral Rt Size 5 T - [id number] Implanted:Qty: 1 on 06/21/2018 by Sridhar Grant MD at OR [facility] Right: Knee DESHAWN : ORTH[employer] 12/10/2022 [id number] / / [id number] Knee Baseplate Mis Tib Tri 5 - [id number] Implanted:Qty: 1 on 06/21/2018 by Sridhar Grant MD at OR [facility] Right: Knee DESHAWN : ORTHOPA[employer] 01/12/2023 [id number] / / [id number] Knee X3 Ins Pos Cs Sz5 9 - [id number] Implanted:Qty: 1 on 06/21/2018 by Sridhar Grant MD at OR [facility] Right: Knee DESHAWN : ORTHOPA[employer] 10/17/2022 [id number] / / [id number] documented as of this encounter Advance Directives [...] Relationship Healthcare Agent Relationshi p Communication Gabi Aby Spouse Health Care Repr esentative (appointed verbally by patient or by statute hierarchy) Care Teams Microgrinder Operator Relationship Specialty Start Date End Date Eddie Ruffin MD [address] [place] [address] PCP - General Family Medicine 07/18/14 documented as of this encounter
--- OUTSIDE RECORDS SUMMARY | 2024-07-27 13:16 | External Medical Summary | Summary of Care ---
Author Name Unknown Organization [facility] Address [address] [place] [address] Phone [phone] Care Team Providers Care Powder Compounder Name Role Phone Eddie Ruffin MD Primary Care Provider + Reason for Visit * Reason Comments Infusion Monoferric * Episode Based Medications (Routine) - Authorized Specialty Diagnoses / Procedures Referred By Contac t Referred To Contact Diagnoses Iron deficiency anemia, unspecified iron deficiency anemia type Procedures MO INJ. FE DERISOMALTOSE 10 MG Sy Dong MD [address] [place] [id number] Anc Hem/Onc [address] [phone] Referral ID Status Reason Start Date Expiration Date V isits Requested Visits Authorized [id number] Authorized 04/18/2024 04/18/[phone] Encounter Details Date Type Department Care Team (Latest Contact Info) Description 04/27/2024 12:45 PM EDT Hem/Onc Treatment Hematology/Oncology Treatment, [address] [address] Iron deficiency anemia, unspecified iron deficiency anemia type* Allergies Active Allergy Reactions Criticality Noted Date Comments Formoterol High 02/16/2022 Other reaction(s): RASH Lisinopril Cough Low 10/24/2012 Penicillins Other (Please comment) 08/15/2013 Family hx allergic reaction Simvastatin High 02/16/2022 Other reaction(s): RASH documented as of this encounter (statuses as of 05/13/2024) Medications Medication Sig Dispensed Refills Start Date End Date Status Aspirin 81 MG Oral Tablet Delayed Release Take 1 Tablet by mouth in the morning. Active Nitroglycerin 0.6 MG Sublingual Tablet Sublingual (Nitrostat)Indica tions:chest pain Place 1 Tablet under the tongue every 5 minutes as needed. Active Fluocinolone Acetonide Scalp 0.01 % External Oil Apply to scalp before beed once weekly for 3 total treatments 118.28 mL 08/13/2022 Active Triamcinolone Acetonide 0.1 % External Cream (Aristocort)Indic ations:Dermatitis Apply topically to affected area 2 times a day. To affected area. Stomach rash 453.6 g 5 09/29/2022 Active Ammonium Lactate 12 % External CreamIndications: Intrinsic atopic dermatitis Apply topically to affected area 2 times a day. To affected area. 385 g 11 11/01/2022 Active Albuterol Sulfate HFA 108 (90 Base) MCG/ACT Inhalation Aerosol SolutionIndicatio ns:COPD exacerbation (HCC) Inhale 2 Puffs by mouth every 6 hours as needed for Cough, Shortness of Breath or Wheezing. 18 g 2 11/01/2022 Active Additional Information Patient taking differently:2 Puff Inhalation Q6H PRN, Cough, Shortness of Breath, Wheezing,Indications: COPD, Reported on 12/09/2022 Fleet Liquid Glycerin Supp 5.4 GM/DOSE Rectal Enema (Glycerin (Laxative))Indica tions:constipatio n Administer into the rectum. Active EQ Fiber Powder Oral PowderIndications :constipation Take by mouth. Active Magnesium Oxide -Mg Supplement 400 (240 Mg) MG Oral Tablet (Mag-Ox) Take 1 Tablet by mouth in the morning and 1 Tablet before bedtime. 180 Tablet 3 01/20/2023 Active Vitamin B-12 1000 MCG Oral Tablet (Cyanocobalamin)I ndications:B12 deficiency Take 1 Tablet by mouth in the morning. 100 Tablet 3 04/18/2023 Active Polyethylene Glycol 3350 17 GM/SCOOP Oral Powder (GNP ClearLax) USE 1 CAPFUL UP TO 3 TIMES DAILY FOR CONSTIPATION 238 g 11 07/01/2023 Active Dexcom G7 Sensor Use 1 sensor every 10 days E 11.9 3 Each 11 10/17/2023 Active Dexcom G7 Bronc Buster Device Use to read blood glucose values with dexcom G7 sensor E 11.9 1 Each 10/17/2023 Active Isosorbide Mononitrate ER 30 MG Oral Tablet Extended Release 24 Hour (Imdur)Indication s:Atherosclerosis of [place] coronary artery of [place] heart without angina pectoris TAKE 1 TABLET BY MOUTH IN THE MORNING 30 Tablet 12/02/2023 5 Active Vitron-C 65-125 MG Oral Tablet (Iron-Vitamin C 65-125 mg per tab) Take 1 Tablet by mouth once a day on Tuesday, Tuesday, and Tuesday only. Active Atorvastatin Calcium 20 MG Oral Tablet (Lipitor)Indicati ons:Dyslipidemia, goal LDL below 70 Take 1 Tablet by mouth in the morning. Do not start until 12/21/23. 100 Tablet 3 12/07/2023 Active LORazepam 1 MG Oral Tablet (Ativan)Indicatio ns:Anxiety TAKE 1 TABLET BY MOUTH UP TO TWICE DAILY FOR ANXIETY/INSOMNIA. 60 Tablet 5 12/14/2023 Active glipiZIDE 10 MG Oral Tablet (Glucotrol)Indica tions:Type 2 diabetes mellitus with hemoglobin A1c goal of less than 8.0% ([facility]) Take 1 Tablet by mouth in the morning 30 minutes before a meal. 30 Tablet 5 12/30/2023 Active Pantoprazole Sodium 40 MG Oral Tablet Delayed Release (Protonix)Indicat ions:Esophageal obstruction TAKE 1 TABLET BY MOUTH DAILY. 90 Tablet 3 01/03/2024 Active Incruse Ellipta 62.5 MCG/ACT Inhalation Aerosol Powder Breath Activated (umeclidinium [place]) inhale ONE puff DAILY. 30 Each 7 01/13/2024 5 Active Losartan Potassium 25 MG Oral Tablet (Cozaar)Indicatio ns:Hypertensive heart disease with chronic diastolic congestive heart failure (HCC),HTN, goal below 140/90 Take 1 Tablet by mouth in the morning. 90 Tablet 3 01/25/2024 Active Clobetasol Propionate 0.05 % External SolutionIndicatio ns:Seborrhea capitis Apply topically to affected area 2 times a day. To affected area for up to two weeks. 50 mL 1 02/01/2024 Active Tamsulosin HCl 0.4 MG Oral Capsule (Flomax) Take 1 Capsule by mouth in the morning. 90 Capsule 1 02/13/2024 Active Diclofenac Sodium 1 % External Gel (Voltaren) Apply 4 g topically to affected area 4 times a day as needed (Pain--apply to knees). 300 g 5 02/13/2024 Active Carvedilol 3.125 MG Oral Tablet (Coreg)Indication s:Old myocardial infarction Take 1 Tablet by mouth in the morning and 1 Tablet before bedtime with food. 60 Tablet 11 04/11/2024 Active Sertraline HCl 100 MG Oral Tablet (Zoloft)Indicatio ns:ANKITA (generalized anxiety disorder),Dysthym ia Take 1 and 1/2 Tablet by mouth in the morning. 45 Tablet 5 04/14/2024 Active metFORMIN HCl 1000 MG Oral Tablet (Glucophage)Indic ations:DM type 2 causing neurological disease (HCC) TAKE 1 TABLET BY MOUTH TWICE DAILY WITH MORNING AND EVENING MEALS. 180 Tablet 3 04/16/2024 5 Active Insulin Glargine 100 UNIT/ML Subcutaneous Solution (Lantus)Indicatio ns:Type 2 diabetes mellitus with hemoglobin A1c goal of less than 8.0% (HCC) INJECT 55 UNITS UNDER THE SKIN AT BEDTIME 50 mL 1 10/24/2023 4 Discontinue d(Refill) HYDROcodone-Aceta minophen 5-325 MG Oral TabletIndications :MEDICATION USE AGREEMENT,Arthrit is of right knee Take 1 Tablet by mouth every 6 hours as needed for Mild pain 60 Tablet 04/03/2024 4 Discontinue d(Refill) Finasteride 5 MG Oral Tablet (Proscar) Take 1 Tablet by mouth in the morning. 90 Tablet 3 04/10/2024 4 Discontinue d(Medicatio n List Clean Up) documented as of this encounter (statuses as of 05/13/2024) Active Problems Problem Noted Date Diagnosed Date Iron deficiency anemia 04/18/2024 SSS (sick sinus syndrome) 01/13/2024 MDD (major depressive disord er), recurrent episode, moderate 01/13/2024 Fatty liver 01/13/2024 Hemiplegia affecting right dominant side 024 Type 2 diabetes mellitus wit h diabetic cataract, with long-term current use of insulin 10/12/2023 Encephalomalacia 04/28/2023 Overview: 03/23 cerebellar encephalomalacia. Old myocardial infarction 03/18/2023 COPD, group C, by GOLD 2017 classification 11/08 Overview: Per COPD GOLD Classification Hypertensive heart disease w ith chronic diastolic congestive heart failure 10/14/2022 S/P biventricular cardiac pacemaker procedure Orthostatic hypotension 08/13/2022 Dyslipidemia 08/11/2022 Lumbar degenerative disc disease 08/11/2022 Pulmonary fibrosis 08/06/2022 Chronic diastolic CHF (congestive heart failure) 07/08/2022 Last Assessment & Plan: Current Status: "Stable" for patient / At [...] interventions for heart failure Centrilobular emphysema 07/08/2022 Last Assessment & Plan: Current Status : "Stable" for patient / At or near baseline Degree of Condition Awareness: Demonstrates very good awareness of condition, disease course, and prognosis "RED FLAG" COPD symptoms: o NO IDENTIFIED SYMPTOMS Medication Regimen o All Classes - PRANAV o Class B, C, D - LAMA Self-Management plan o Other: call [facility] Exacerbation plan o Has not required in home advanced interventions Occlusion and stenosis of bilateral carotid kelby chuyita 11/07/2020 Overview: 01/18 <50% b/l. Gastro-esophageal reflux disease without esophag itis 06/23/2020 Nonproliferative diabetic retinopathy of both ey es 11/20/2019 Chronic knee pain after tota l replacement of right knee joint 11/11/2018 ANKITA (generalized anxiety disorder) 07/29/2017 MEDICATION USE AGREEMENT 04/09/2016 Overview: uses hydrocodone PRN, not daily, for LBP BPH with obstruction/lower urinary tract symptom s 08/09/2013 Well adult exam 06/11/2013 Overview: 2022 wants to defer colonoscopy NEED zoster. 03/18 colon-1 5mm polyp PATH adenoma 02/13 colonoscopy- 2polyps PATH tubular adenoma + adenomatous. DANIELE 2y (fair prep) 06/14 abnormal stress test--referred for [place]--mild nonobstructive CAD> patent stent. Cont med mgmt 08/14 BRIGITTE- mod BPH 08/14 TTE normal EF, Gr I saavedra Dys, EGD-dilated Schatzki ring 06/13 PFT--normal spirometry with low norm obstructive index. No response to dilator. Normal diffusing. Some air trapping, suggestive flow patterns for obstruction. Acute. HTN, goal below 130/80 05/02/2012 Coronary atherosclerosis of [place] coronary kelby ry 03/06/2012 Overview: 1. S/p NSTEMI--CAD, NSTEMI , PCI with a bare metal stent to the OM1 on 02/03/12 at [facility] 2. Patent OM1 stent with mild nonobstructive CAD noted elsewhere via the 06/24/14 catheterization at [facility] following abnormal nuclear stress testing History of acute decompensated diastolic heart failure, improved with fluid restriction and as needed furosemide Type 2 diabetes mellitus wit h hemoglobin A1c goal of less than 8.0% 05/15/2009 Overview: 2014 +microalb on max ARB ICD-10 update of inactive term Sensorineural hearing loss, bilateral Overview: noise induced possibly early presbycusis documented as of this encounter (statuses as of 05/13/2024) Resolved Problems Problem Noted Date Diagnosed Date Resolved Date Dizziness 07/08/2022 08/11/2022 Last Assessment & Plan: Still with intermittent dizzy episodes, not related [...] long-term current use of insulin 02/06/2020 023 Overview: DM2 + PVD - conditions have assumed relationship per current coding guidelines. Esophageal obstruction 11/20/201908/11 Lumbar back pain 11/11/2018 10/18/2019 Overview: Acute. 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 2012 PFT-low normal 08/14 [facility]-upper lobe emphysema, possible basilar fibrosis Lung density on x-ray 06/04/20132013 Overview: 06/13 density -repeat CXR 1mo Overweight (BMI 25.0-29.9) 04/03/2013 0 04/28/2017 Cough 10/24/2012 05/25/2013 Acute bronchitis, antibiotics not indicated 10/11/2012 05/25/2013 Impacted cerumen 10/11/2012 04/28/2017 Dermatitis 10/11/2012 04/28/2017 HTN, goal below 140/80 03/20/201205/02 Overview: Per HTN Protocol #27. Dyslipidemia, goal LDL below 70 02/07/2012 08/11/2022 [employer] Other*[id number] 02/03/2012 09/07/2016 History of non-ST elevation myocardial infarction (NSTEMI) 02/02/2012 08/11/2022 Tobacco use disorder 10/26/2010 012 Acute tonsillitis 09/07/2010 2012 Acute bronchitis, complicated 06/11/2010 2012 HTN, goal below 130/80 08/27/200903/23 Overview: Per HTN Taxonomy. Dyslipidemia, goal LDL below 100 07/15/2009 02/07/2012 Overview: Per Lipid Taxonomy. DM type 2 causing neurological disease 06/13/2008 08/11/2022 History of subarachnoid hemorrhage 06/13/2008 10/18/2019 Overview: Historical. HTN, goal below 140/90 04/09/200808/27 Overview: Per HTN Taxonomy. DM type 2, not at goal 04/09/200805/15 Overview: Modified per Diabetes protocol #14. Dyslipidemia, goal LDL below 160 04/09/2008 07/15/2009 Overview: Per Lipid Taxonomy. Other acute otitis externa 0 09/26/2008 Overview: Resolved per Benign Acute Dxs Protocol #3 Impacted cerumen 2012 Other diseases of nasal cavi ty and sinuses(478.19) 04/28/2017 Dyspnea and respiratory abnormality 06/18/2018 Overview: ICD-10 update of inactive term Deviated nasal septum 2018 documented as of this encounter (statuses as of 05/13/2024) Immunizations Name Administration Dates Next Due COVID-19 [...] Date Recorded PHQ Adult Total Score 0 08/04/2021 Utilities Answer Date Recorded Do you have trouble paying y our heating, water, or electric bill? (Adult - for ages 18 years and over) Not on file 01/17/2024 Is your family able to pay t he heat, water, or electric bill? (Household - for ages 0-17 years) Not on file 01/17/2024 Does your family have access to good internet? (Household - for ages 0-17 years) Not on file 01/17/2024 Social Connections Answer Date Recorded How often do you feel lonely or isolated from those around you? (Adult - for ages 18 years and over) Not on file 01/17/2024 Sex and Gender Information Value Date Recorded Sex Assigned at Male 06/23/2020 12:28 PM EST Gender Identity Male 06/23/2020 12:28 PM EST Sexual Orientation Straight 06/23/2020 12 :28 PM EST Job Start Date Occupation Industry Not on file Not on file Not on file documented as of this encounter Last Filed Vital Signs Vital Sign Reading Time Taken Comments Blood Pressure 149/68 04/27/2024 2:45 PM EDT Pulse 68 04/27/2024 2:45 PM EDT Temperature 35.5 C (95.9 F) 04/27/2024 12:45 PM E DT Respiratory Rate 16 04/27/2024 2:45 PM EDT Oxygen Saturation 93% 04/27/2024 2:45 PM EDT Inhaled Oxygen Concentration - - Weight - - Height - - Body Mass Index - - documented in this encounter Functional Status Functional Status Response Date of Assess ment Are you deaf or do you have serious difficulty h earing? No 06/21/2018 Are you blind or do you have serious difficulty seeing, even when wearing glasses? No 06/21/2018 Do you have serious difficul ty walking or climbing stairs? (5 years old or older) No 06/21/2018 Do you have difficulty dress ing or bathing? (5 years old or older) No 06/21/2018 Because of a physical, menta l, or emotional condition, do you have difficulty doing errands alone such as visiting a doctor s office or shopping? (15 years old or older) No 06/21/20 18 Cognitive Status Response Date of Assessm ent Because of a physical, menta l, or emotional condition, do you have serious difficulty concentrating, remembering, or making decisions? (5 years old or older) No 06/21/2018 documented as of this encounter Nursing Notes * Mary Travis RN - 04/27/2024 2:45 PM EDT Patient to chair 7 ambulatory using walker Patient voices no complaints or concerns Oriented to unit and instructed on signs and symptoms of reaction from medication, verbalized understanding. Safety and Risk for Injury Patient will remain free from injury. Ensure appropriate safety devices are available. Provide and maintain safe environment. Patient instructed on use of heat and massage functions where applicable. Patient shown how to operate the heat function of the chair and to alert nursing staff if the chair feels too warm. Patient instructed on the risk of potential peña while using the heat function. Goals: patient will remain free of injury Possible barriers to meeting goals: ambulation with IV pole and use of walker, increase risk of fall Stability of the patient: Moderately stable - low risk of patient condition declining or worsening Summary regarding today's goals: Met: patient remained free of injury Patient discharged in good condition, tolerated well without reaction. documented in this encounter Plan of Treatment Upcoming Encounters Date Type Department Care Team (Late st Contact Info) Description 06/26/2024 3:30 PM EST Office Visit Cardiology, [facility] [address] [place] [address] Malathi Newman PA-C [address] [place] [address] 07/03/2024 2:25 PM EST Office Visit Hematology/Oncology [facility] [address] [facility] [place] [phone] Sy Dong MD [address] [facility] [place] [address] 07/17/2024 3:20 PM EST Office Visit [facility] [address] [facility] [place] [address] Eddie Ruffin MD [address] [place] [address] 08/27/2024 2:45 PM EST Office Visit Urology, [facility] [address] [place] [address] Valentín Sampson MD [address] [place] [address] 10/19/2024 2:00 PM EDT Office Visit [facility] [address] [place] [address] Eddie Ruffin MD [address] [place] [address] 03/12/2025 3:20 PM EDT Office Visit [facility] [address] [place] [address] Eddie Ruffin MD [address] [place] [address] Health Maintenance Due Date Last Done Comments Adult Wellness Visit 08/04/2022 08/04/2021 Colonoscopy 03/22/2023 03/22/2018, 03/02, 02/24/2016, Additional history exists COVID-19 Vaccine ( - season) 2024 11/05/2020, 10/13/2020 Influenza Vaccine (FLU shot) (#1) 2024 07/01/2023, 04/16/2022, 04/29/2021, Additional history exists HbA1c 10/08/2024 04/10/2024, 04/3 , 06/28/2023, Additional history exists Diabetic Eye Exam 10/26/2024 10/27/2023, (Done elsewhere), 01/28/2023, Additional history exists Diabetic Foot Exam 02/23/2025 02/24/2024 (D one elsewhere), 02/20/2021, 05/20/2020, Additional history exists GFR 04/10/2025 04/10/2024, 3 , 06/28/2023, Additional history exists Albumin/Creatinine Ratio 05/01/2025 024, 06/28/2023, 04/16/2022, Additional history exists Depression Monitoring 05/01/2025 05/01/2024 O2 ASSESSMENT COMPLETED IN PAST YEAR FOR COPD 05/01/2025 05/01/2024 DTap/Tdap Vaccines (3 - Td or Tdap) 08/27/2031 08/27/2021, 07/05/2011, 08/01/2005, Additional history exists Pneumococcal Vaccine: 65+ Years Completed 04/09/2016, 08/01/2015, 02/11/2015, Additional history exists RETIRED - COLONOSCOPY-EVERY 5 YRS AGES 18-100 Discontinued 03/22/2018, 03/22/2018, 02/24/2016, Additional history exists Zoster Vaccines Discontinued 02/20/2021, 04/28/2017 Alpha-1 Antitrypsin [...] this encounter Medical Devices Implanted Type Area Mercantile Agent Device Identifier Shelf Expiration Date Model / Serial / Lot Cement Antibiotic Bone - [id number] Implanted:Qty: 2 on 06/21/2018 by Sridhar Grant MD at [place] [facility] Right: Knee DESHAWN : [employer] 12/29/2018 6197-9-010 / / [id number] Triathlon Asyetric X3 Patell - [id number] Implanted:Qty: 1 on 06/21/2018 by Sridhar Grant MD at [place] [facility] Right: Knee DESHAWN : [employer] 03/15/2023 5551-G-350 / / [id number] Component Femoral Rt Size 5 T - [id number] Implanted:Qty: 1 on 06/21/2018 by Sridhar Grant MD at [place] [facility] Right: Knee DESHAWN : [employer] 12/10/2022 [id number]-F-[id number] / / [id number] Knee Baseplate Mis Tib Tri 5 - [id number] Implanted:Qty: 1 on 06/21/2018 by Sridhar Grant MD at [place] [facility] Right: Knee DESHAWN : [employer] 01/12/2023 5520-M-[id number] / / [id number] Knee X3 Ins Pos Cs Sz5 9 - [id number] Implanted:Qty: 1 on 06/21/2018 by Sridhar Grant MD at [place] [facility] Right: Knee [employer]HAWN : [employer] 10/17/2022 5531-G-[id number] / / [id number] documented as of this encounter Visit Diagnoses Diagnosis Iron deficiency anemia, unspecified iron deficiency anemia type- Primary documented in this encounter Administered Medications Inactive Administered Medications - up to 3 most recent administrations Medication Order MAR Action Action Date Dose Rate Site Ferric derisomaltose (Monoferric) 1,000 mg in NSS 250 mL ivpb 1,000 mg, IV Piggyback, ONCE, 1 dose, On Tue04/27/24 at 1345, Administer over 30 Minutes, DOSING GUIDELINES: For patient weight LESS THAN 50 kg: Dose 20 mg/kg For patient weight 50 Kg or greater: Dose 1000 mg Start Infusion 04/27/2024 1:10 PM EDT 1,000 mg 530 mL/hr NSS infusion Intravenous, at 50 mL/hr, PRN, Starting on Tue04/27/24 at 1415, Until Tue04/27/24 at 1849, Maintenance line Start Infusion 04/27/2024 1:04 PM EDT 50 mL/hr documented in this encounter Advance Directives * [...] patient or by statute hierarchy) Care Teams Powder Compounder Relationship Specialty Start Date End Date Eddie Ruffin MD [address] [place] [address] PCP - General Family Medicine 07/18/14 documented as of this encounter
--- OUTSIDE RECORDS SUMMARY | 2024-07-27 13:16 | External Medical Summary | Summary of Care ---
Author Name Unknown Organization [facility] Address [address] [place] [address] Phone [phone] Care Team Providers Care Gear Repair Supervisor Name Role Phone Eddie Ruffin MD Primary Care Provider + Encounter Details Date Type Department Care Team (Late st Contact Info) Description 05/15/2024 Population Health External Data Unspecified Department Allergies Active Allergy Reactions Criticality Noted Date Comments Formoterol High 02/16/2022 Other reaction(s): RASH Lisinopril Cough Low 10/24/2012 Penicillins Other (Please comment) 08/15/2013 Family hx allergic reaction Simvastatin High 02/16/2022 Other reaction(s): RASH documented as of this encounter (statuses as of 05/16/2024) Medications Medication Sig Dispensed Refills Start Date End Date Status Aspirin 81 MG Oral Tablet Delayed Release Take 1 Tablet by mouth in the morning. Active Nitroglycerin 0.6 MG Sublingual Tablet Sublingual (Nitrostat)Indicat ions:chest pain Place 1 Tablet under the tongue every 5 minutes as needed. Active Fluocinolone Acetonide Scalp 0.01 % External Oil Apply to scalp before beed once weekly for 3 total treatments 118.28 mL 08/13/2022 Active Triamcinolone Acetonide 0.1 % External Cream (Aristocort)Indica tions:Dermatitis Apply topically to affected area 2 times a day. To affected area. Stomach rash 453.6 g 5 09/29/2022 Active Ammonium Lactate 12 % External CreamIndications:I ntrinsic atopic dermatitis Apply topically to affected area 2 times a day. To affected area. 385 g 11 11/01/2022 Active Albuterol Sulfate HFA 108 (90 Base) MCG/ACT Inhalation Aerosol SolutionIndication s:COPD exacerbation (HCC) Inhale 2 Puffs by mouth every 6 hours as needed for Cough, Shortness of Breath or Wheezing. 18 g 2 11/01/2022 Active Additional Information Patient taking differently:2 Puff Inhalation Q6H PRN, Cough, Shortness of Breath, Wheezing,Indications: COPD, Reported on 12/09/2022 Fleet Liquid Glycerin Supp 5.4 GM/DOSE Rectal Enema (Glycerin (Laxative))Indicat ions:constipation Administer into the rectum. Active EQ Fiber Powder Oral PowderIndications: constipation Take by mouth. Active Magnesium Oxide -Mg Supplement 400 (240 Mg) MG Oral Tablet (Mag-Ox) Take 1 Tablet by mouth in the morning and 1 Tablet before bedtime. 180 Tablet 3 01/20/2023 Active Vitamin B-12 1000 MCG Oral Tablet (Cyanocobalamin)In dications:B12 deficiency Take 1 Tablet by mouth in the morning. 100 Tablet 3 04/18/2023 Active Polyethylene Glycol 3350 17 GM/SCOOP Oral Powder (GNP ClearLax) USE 1 CAPFUL UP TO 3 TIMES DAILY FOR CONSTIPATION 238 g 11 07/01/2023 Active Dexcom G7 Sensor Use 1 sensor every 10 days E 11.9 3 Each 11 10/17/2023 Active Dexcom G7 Planning Specialist Device Use to read blood glucose values with dexcom G7 sensor E 11.9 1 Each 10/17/2023 Active Isosorbide Mononitrate ER 30 MG Oral Tablet Extended Release 24 Hour (Imdur)Indications :Atherosclerosis of [place] coronary artery of [place] heart without angina pectoris TAKE 1 TABLET BY MOUTH IN THE MORNING 30 Tablet 11 12/02/2023 12/01/2024 Active Vitron-C 65-125 MG Oral Tablet (Iron-Vitamin C 65-125 mg per tab) Take 1 Tablet by mouth once a day on Tuesday, Tuesday, and Tuesday only. Active Atorvastatin Calcium 20 MG Oral Tablet (Lipitor)Indicatio ns:Dyslipidemia, goal LDL below 70 Take 1 Tablet by mouth in the morning. Do not start until 12/21/23. 100 Tablet 3 12/07/2023 Active LORazepam 1 MG Oral Tablet (Ativan)Indication s:Anxiety TAKE 1 TABLET BY MOUTH UP TO TWICE DAILY FOR ANXIETY/INSOMNIA. 60 Tablet 12/14/2023 Active glipiZIDE 10 MG Oral Tablet (Glucotrol)Indicat ions:Type 2 diabetes mellitus with hemoglobin A1c goal of less than 8.0% (HCC) Take 1 Tablet by mouth in the morning 30 minutes before a meal. 30 Tablet 5 12/30/2023 Active Pantoprazole Sodium 40 MG Oral Tablet Delayed Release (Protonix)Indicati ons:Esophageal obstruction TAKE 1 TABLET BY MOUTH DAILY. 90 Tablet 3 01/03/2024 Active Incruse Ellipta 62.5 MCG/ACT Inhalation Aerosol Powder Breath Activated (umeclidinium [place]) inhale ONE puff DAILY. 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 90 Tablet 01/25/2024 Active Clobetasol Propionate 0.05 % External SolutionIndication s:Seborrhea capitis Apply topically to affected area 2 times a day. To affected area for up to two weeks. 50 mL 02/01/2024 Active Tamsulosin HCl 0.4 MG Oral Capsule (Flomax) Take 1 Capsule by mouth in the morning. 90 Capsule 02/13/2024 Active Diclofenac Sodium 1 % External Gel (Voltaren) Apply 4 g topically to affected area 4 times a day as needed (Pain--apply to knees). 300 g 02/13/2024 Active Carvedilol 3.125 MG Oral Tablet (Coreg)Indications :Old myocardial infarction Take 1 Tablet by mouth in the morning and 1 Tablet before bedtime with food. 60 Tablet 04/11/2024 Active Sertraline HCl 100 MG Oral Tablet (Zoloft)Indication s:ANKITA (generalized anxiety disorder),Dysthymi a Take 1 and 1/2 Tablet by mouth in the morning. 45 Tablet 04/14/2024 Active metFORMIN HCl 1000 MG Oral Tablet (Glucophage)Indica tions:DM type 2 causing neurological disease (HCC) TAKE 1 TABLET BY MOUTH TWICE DAILY WITH MORNING AND EVENING MEALS. 180 Tablet 3 04/16/2024 04/16/2025 Active Insulin Glargine 100 UNIT/ML Subcutaneous Solution (Lantus)Indication s:Type 2 diabetes mellitus with hemoglobin A1c goal of less than 8.0% ([facility]) INJECT 55 UNITS UNDER THE SKIN AT BEDTIME 50 mL 1 05/04/2024 Active HYDROcodone-Acetam inophen 5-325 MG Oral TabletIndications: MEDICATION USE AGREEMENT,Arthriti s of right knee Take 1 Tablet by mouth every 6 hours as needed for Pain, Mild. 60 Tablet 05/04/2024 Active documented as of this encounter (statuses as of 05/16/2024) Active Problems Problem Noted Date Diagnosed Date [...] - LAMA Self-Management plan o Other: call [facility] Exacerbation plan o Has not required in [...] prep) 06/14 abnormal stress test--[place]mild nonobstructive CAD> patent stent. Cont med mgmt 08/14 BRIGITTE- mod BPH 08/14 TTE normal EF, Gr I saavedra Dys, EGD-dilated Schatzki ring 06/13 PFT--normal spirometry with low norm obstructive index. No response to dilator. Normal diffusing. Some air trapping, suggestive flow patterns for obstruction. Acute. HTN, goal below 130/80 05/02/2012 Coronary atherosclerosis of [place] coronary kelby ry 03/06/2012 Overview: 1. S/p NSTEMI--CAD, NSTEMI , PCI with a bare metal stent to the OM1 on 02/03/12 at [facility] 2. 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 2012 PFT-low normal 08/14 [facility]-upper lobe emphysema, possible basilar fibrosis Lung density on x-ray 06/04/20132013 Overview: 06/13 density -repeat CXR 1mo Overweight (BMI 25.0-29.9) 04/03/2013 0 04/28/2017 Cough 10/24/2012 05/25/2013 Acute bronchitis, antibiotics not indicated 10/11/2012 05/25/2013 Impacted cerumen 10/11/2012 04/28/2017 Dermatitis 10/11/2012 04/28/2017 HTN, goal below 140/80 03/20/201205/02 Overview: Per HTN Protocol #27. Dyslipidemia, goal LDL below 70 02/07/2012 08/11/2022 [employer] Other*[id number] 02/03/2012 09/07/2016 History of non-ST elevation myocardial [...] as of this encounter (statuses as of 05/16/2024) Immunizations Name Administration Dates Next Due COVID-19 [...] No 05/01/2024 Does the household have a unm cancer centerlar source of income? (Household - for [...] documented as of this encounter Functional Status Functional Status Response [...] No 06/21/2018 documented as of this encounter Plan of Treatment Upcoming Encounters Date Type Department Care Team (Late st Contact Info) Description 06/26/2024 3:30 PM EST Office Visit Cardiology, [facility] [address] [place] [address] Malathi Newman PA-C [address] [place] [address] 07/03/2024 2:25 PM EST Office Visit Hematology/Oncology [facility] [address] [facility] [place] [phone] Sy Dong MD [address] [facility] [place] [address] 07/17/2024 3:20 PM EST Office Visit [facility] [address] [place] [address] Eddie Ruffin MD [address] [place] [address] 08/27/2024 2:45 PM EST Office Visit Urology, [facility] [address] [place] [address] Valentín Sampson MD [address] [place] [address] 10/19/2024 2:00 PM EDT Office Visit [facility] [address] [place] [address] Eddie Ruffin MD [address] [place] [address] 03/12/2025 3:20 PM EDT Office Visit Family [facility] [address] [place] [address] Eddie Ruffin MD [address] [place] [address] Health Maintenance Due Date Last Done Comments Adult Wellness Visit 08/04/2022 08/04/2021 Colonoscopy 03/22/2023 03/22/2018, 03/02, 02/24/2016, Additional history exists COVID-19 Vaccine ( season) 2024 11/05/2020, 10/13/2020 Influenza Vaccine (FLU shot) (#1) 2024 07/01/2023, 04/16/2022, 04/29/2021, Additional history exists HbA1c 10/08/2024 04/10/2024, 043 , 06/28/2023, Additional history exists Diabetic Eye Exam 10/26/2024 10/27/2023, (Done elsewhere), 01/28/2023, Additional history exists Diabetic Foot Exam 02/23/2025 02/24/2024 (D one elsewhere), 02/20/2021, 05/20/2020, Additional history exists GFR 04/10/2025 04/10/2024, 043 , 06/28/2023, Additional history exists Albumin/Creatinine Ratio [...] this encounter Medical Devices Implanted Type Area Underground Utility Locator Device Identifier Shelf Expiration Date Model / Serial / Lot Cement Antibiotic Bone - [id number] Implanted:Qty: 2 on 06/21/2018 by Sridhar Grant [place] [facility] [place]: Knee DESHAWN : ORTHOPAEDICS 12/29/2018 6197-9-010 / / [id number] Triathlon Asyetric X3 Patell - [id number] Implanted:Qty: 1 on 06/21/2018 by Sridhar Grant [place] [facility] [place]: Knee DESHAWN : ORTHOPAEDICS 03/15/2023 5551-G-350 / / [id number] Component Femoral Rt Size 5 T - [id number] Implanted:Qty: 1 on 06/21/2018 by Sridhar Grant [place] [facility] [place]: Knee DESHAWN : ORTHOPAEDICS 12/10/2022 5510-F-502 / / [id number] Knee Baseplate Mis Tib Tri 5 - [id number] Implanted:Qty: 1 on 06/21/2018 by Sridhar Grant [place] [facility] [place]: Knee DESHAWN : ORTHOPAEDICS 01/12/2023 5520-M-500 / / [id number] Knee X3 Ins Pos Cs Sz5 9 - [id number] Implanted:Qty: 1 on 06/21/2018 by Sridhar Grant [place] [facility] [place]: Knee DESHAWN : ORTHOPAEDICS 10/17/2022 5531-G-509 / / [id number] documented as of this encounter Advance Directives [...] patient or by statute hierarchy) Care Teams Gear Repair Supervisor Relationship Specialty Start Date End Date Eddie Ruffin MD [address] [place] [address] PCP - General Family Medicine 07/18/14 documented as of this encounter
--- OUTSIDE RECORDS SUMMARY | 2024-07-27 13:16 | External Medical Summary | Summary of Care ---
Author Name Unknown Organization [facility] Address [address] [place] [address] Phone [phone] Care Team Providers Care Graduate Nurse Name Role Phone Eddie Ruffin MD Primary Care Provider + Reason for Referral * Evaluate & Treat - Unlimited Visits (Within 3 days (urgent)) - Authorized Specialty Diagnoses / Procedures Referred By Michael sheets Referred To Contact Dermatology Diagnoses Basal cell carcinoma (BCC) of scalp Jerson Moore MD [address] [place] [address] Phone: tel: fax: Referral ID Status Reason Start Date Expiration Date Visits Requested Visits Authorized [id number] Authorized Specialty Services Required 4 [phone] Question Answer Referral Priority Within 3 days (urgent) Where should this appointment be scheduled? [facility] Are you referring the patient for Mohs Surgery and have a current positive skin cancer biopsy result? No What is the reason for the patient referral? Rash/Skin Check/Eval of Lesion or Mole Comments Strongly suspected basal cell carcinoma of scalp Reason for Visit * Reason Comments Acute Pt here for a sore s pot/scab on the top of his head, pt reports that it got worse yesterday. Encounter Details Date Type Department Care Team (Latest Contact Info) Description 06/11/2024 6:40 PM EST Office Visit Family [facility] [address] [place] [phone] Jerson Moore MD [address] [place] [phone] Basal cell carcinoma (BCC) of scalp*; Secondary impetiginization Allergies Active Allergy Reactions Criticality Noted Date Comments Formoterol High 02/16/2022 Other reaction(s): RASH Lisinopril Cough Low 10/24/2012 Penicillins Other (Please comment) 08/15/2013 Family hx allergic reaction Simvastatin High 02/16/2022 Other reaction(s): RASH documented as of this encounter (statuses as of 06/11/2024) Medications Aspirin 81 MG Oral Tablet Delayed [...] 3 Each 11 4 Active Dexcom G7 Telephone Services Sales Representative Device Use to read blood glucose values with dexcom G7 sensor E 11.9 1 Each 4 Active Isosorbide Mononitrate ER 30 MG Oral Tablet Extended Release 24 Hour (Imdur)Indicatio ns:Atheroscleros is of [place] coronary artery of [place] heart without angina pectoris TAKE 1 TABLET [...] hemoglobin A1c goal of less than 8.0% ([facility]) Take 1 Tablet by mouth in the morning 30 minutes before a meal. 30 Tablet 5 05/07/2024 1:32 PM EDT 4 Active Pantoprazole Sodium 40 MG Oral Tablet Delayed Release (Protonix)Indica tions:Esophageal obstruction TAKE 1 TABLET BY MOUTH DAILY. 90 Tablet 3 04/03/2024 2:59 PM EDT 4 Active Incruse Ellipta 62.5 MCG/ACT Inhalation Aerosol Powder Breath Activated (umeclidinium [place]) inhale ONE puff DAILY. 30 Each 7 [...] FOR ANXIETY/INSOMNIA . 60 Tablet 5 4 Active Mupirocin 2 % External Ointment (Bactroban) Apply topically to affected area 3 times a day for 14 days. To affected area for up to 14 days. 22 g 1 4 024 Active documented as of this encounter (statuses as of 06/11/2024) Active Problems Problem Noted Date Diagnosed Date [...] - LAMA Self-Management plan o Other: call [facility] Exacerbation plan o Has not required [...] prep) 06/14 abnormal stress test--[place]--mild nonobstructive CAD> patent stent. Cont med mgmt 08/14 BRIGITTE- mod BPH 08/14 TTE normal EF, Gr I saavedra Dys, EGD-dilated Schatzki ring 06/13 PFT--normal spirometry with low norm obstructive index. No response to dilator. Normal diffusing. Some air trapping, suggestive flow patterns for obstruction. Acute. HTN, goal below 130/80 05/02/2012 Coronary atherosclerosis of [place] coronary kelby ry 03/06/2012 Overview (04/26/2016): 1. S/p NSTEMI--CAD, NSTEMI , PCI with a bare metal stent to the OM1 on 02/03/12 at [facility] 2. 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 2012 PFT-low normal 08/14 [facility]-upper lobe emphysema, possible basilar fibrosis Lung density on x-ray 06/04/20132013 Overview (06/04/2013): 06/13 density -repeat CXR 1mo Overweight (BMI 25.0-29.9) 04/03/2013 0 04/28/2017 Cough 10/24/2012 05/25/2013 Acute bronchitis, antibiotics not indicated 10/11/2012 05/25/2013 Impacted cerumen 10/11/2012 04/28/2017 Dermatitis 10/11/2012 04/28/2017 HTN, goal below 140/80 03/20/201205/02 Overview: Per HTN Protocol #27. Dyslipidemia, goal LDL below 70 02/07/2012 08/11/2022 [employer] Other*[id number] 02/03/2012 09/07/2016 History of non-ST elevation myocardial [...] as of this encounter (statuses as of 06/11/2024) Immunizations Name Administration Dates Next Due COVID-19 mRNA, LNP-s, No Pre serve, 2-Dose Series ([email or web address]) 11/05/2020,10/13/2020 H1N1 2008 Influenza, IM 09/18/2009 Pneumococcal Conjugate Vacc, 13 [...] 05/01/2024 Does the household have a re lar source of income? 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[employer] [facility] Not on file Not on file Not on file documented as of this encounter Last Filed Vital Signs Vital Sign Reading Time Taken Comments Blood Pressure 144/72 06/11/2024 6:37 PM EST Pulse 75 06/11/2024 6:37 PM EST Temperature 37.2 C (98.9 F) 06/11/2024 6:37 PM ES T Respiratory Rate 16 06/11/2024 6:37 PM EST Oxygen Saturation 95% 06/11/2024 6:37 PM EST Inhaled Oxygen Concentration - - Weight 90.2 kg (198 lb 12.8 oz) 06/11/2024 6:37 PM EST Height 175.3 cm (5' 9") 06/11/2024 6:37 PM EST Body Mass Index 29.36 06/11/2024 6:37 PM EST documented in this [...] documented in this encounter Progress Notes * Jerson Moore MD - 06/11/2024 7:09 PM EST Images from the original note were not included. History of Present Illness Kaden Badillo is a 73 year old male that presents for Acute (Pt here for a sore spot/scab on thetop of his head, pt reports that it got worse yesterday.) Patient has had the area feel itchy over the past year or so and it has been scabbed and irritated more of late. No ricardo bleeding. Feels very sore and red as well Physical Exam BP 144/72 (BP Site: Left Arm, BP Position: Sitting, BP Cuff Size: Regular) | Pulse 75 | Temp 37.2 C (98.9 F) (Tympanic) | Resp 16 | Ht 1.753 m (5' 9") | Wt 90.2 kg (198 lb 12.8 oz) | SpO2 95% | BMI 29.36 kg/m | BSA 2.1 m One large ulcerated lesion over crown of scalp and one small satellite lesion right parietal area -central clearing with billy border I have reviewed most recent labs None Assessment and Plan Basal cell carcinoma (BCC) of scalp - referral to derm - strong suspicion of this due to duration, appearance, and ulceration. - DERMATOLOGY REFERRAL OP Secondary impetiginization - topical bactroban for now Wrap-Up Prn/scheduled Time: I spent a total of 20-29 minutes (exact time 21 mins) on the date of service in preparation, delivery, and documentation of the care provided to Kaden Badillo excluding any time spent in the performance of separately billed services. documented in this encounter Plan of Treatment Upcoming Encounters Date Type Department Care Team (Late st Contact Info) Description 06/26/2024 3:30 PM EST Office Visit Cardiology, [facility] [address] [place] [address] Malathi Newman PA-C [address] [facility] [place] [address] 07/03/2024 2:25 PM EST Office Visit Hematology/Oncology [facility] [address] [facility] [place] [phone] Sy Dong MD [address] [facility] [place] [address] 07/17/2024 3:20 PM EST Office Visit Family Practice [facility] [address] [facility] [place] [address] Eddie Ruffin MD [address] [place] [address] 08/27/2024 2:45 PM EST Office Visit Urology, [facility] [address] [place] [address] Valentín Sampson MD [address] [place] [address] 10/19/2024 2:00 PM EDT Office Visit [facility] [address] [address] Eddie Ruffin MD [address] [place] [address] 03/12/2025 3:20 PM EDT Office Visit [facility] [address] [place] [address] Eddie Ruffin MD [address] [place] [address] Scheduled Referrals Name Type Priority Associated Diagnoses Orde r Schedule DERMATOLOGY REFERRAL OP Referral Within 3 days (urgent) Basal cell carcinoma (BCC) of scalp Ordered: 06/11/2024 Health Maintenance Due Date Last Done Comments Adult Wellness Visit 08/04/2022 08/04/2021 Colonoscopy 03/22/2023 03/22/2018, 03/02, 02/24/2016, Additional history exists Influenza Vaccine (FLU shot) (#1) 2024 07/01/2023, 04/16/2022, 04/29/2021, Additional history exists HbA1c 10/08/2024 04/10/2024, 3 , 06/28/2023, Additional history exists Diabetic Eye [...] this encounter Medical Devices Implanted Type Area Commercial Diver Device Identifier Shelf Expiration Date Model / Serial / Lot Cement Antibiotic Bone - [id number] Implanted:Qty: 2 on 06/21/2018 by Sridhar Grant MD at [place] [facility] Right: Knee DESHAWN : ORTHOPAEDICS 12/29/2018 6197-9-010 / / [id number] Triathlon Asyetric X3 Patell - [id number] Implanted:Qty: 1 on 06/21/2018 by Sridhar Grant MD at [place] [facility] Right: Knee DESHAWN : ORTHOPAEDICS 03/15/2023 5551-G-350 / / [id number] Component Femoral Rt Size 5 T - [id number] Implanted:Qty: 1 on 06/21/2018 by Sridhar Grant MD at [place] [facility] Right: Knee DESHAWN : ORTHOPAEDICS 12/10/2022 5510-F-502 / / [id number] Knee Baseplate Mis Tib Tri 5 - [id number] Implanted:Qty: 1 on 06/21/2018 by Sridhar Grant MD at [place] [facility] Right: Knee DESHAWN : ORTHOPAEDICS 01/12/2023 5520-M-500 / / [id number] Knee X3 Ins Pos Cs Sz5 9 - [id number] Implanted:Qty: 1 on 06/21/2018 by Sridhar Grant MD at [facility] Right: Knee DESHAWN : ORTHOPAEDICS 10/17/2022 5531-G-509 / / [id number] documented as of this encounter Visit Diagnoses Diagnosis Advanced care planning/counseling discussion- Primary Other specified counseling Chronic diastolic CHF (congestive heart failure) (HCC) Chronic diastolic heart failure Centrilobular emphysema (HCC) Other emphysema Dizziness Dizziness and giddiness Basal cell carcinoma (BCC) of scalp- Primary Secondary impetiginization Impetigo documented in this encounter Advance Directives * [...] patient or by statute hierarchy) Care Teams Graduate Nurse Relationship Specialty Start Date End Date Eddie Ruffin MD [address] [place] [address] PCP - General Family Medicine 07/18/14 documented as of this encounter
--- OUTSIDE RECORDS SUMMARY | 2024-07-27 13:16 | External Medical Summary | Summary of Care ---
Author Name Unknown Organization [facility] Address [address] [place] [address] Phone [phone] Care Team Providers Care Drafter [employer] Name Role Phone Eddie Ruffin MD Primary Care Provider + Reason for Visit * Reason Comments Return Visit 3 month return Encounter Details Date Type Department Care Team (Latest Contact Info) Description 05/01/2024 2:40 PM EDT Office Visit Family Practice [facility] [address] [place] [phone] Eddie Ruffin MD [address] [place] [address] Type 2 diabetes mellitus with diabetic cataract, with long-term current use of insulin (HCC)*; Degeneration of intervertebral disc of lumbar region with discogenic back pain and lower extremity pain; Chronic pain of right knee; Iron deficiency anemia, unspecified iron deficiency anemia type; BPH with obstruction/lower urinary tract symptoms Allergies Active Allergy Reactions Criticality Noted Date Comments Formoterol High 02/16/2022 Other reaction(s): RASH Lisinopril Cough Low 10/24/2012 Penicillins Other (Please comment) 08/15/2013 Family hx allergic reaction Simvastatin High 02/16/2022 Other reaction(s): RASH documented as of this encounter (statuses as of 05/24/2024) Medications Medication Sig Dispensed Refills Start Date [...] 3 Each 11 10/17/2023 Active Dexcom G7 [place]arryman Device Use to read blood glucose values with dexcom G7 sensor E 11.9 1 Each 10/17/2023 Active Isosorbide Mononitrate ER 30 MG Oral Tablet Extended Release 24 Hour (Imdur)Indication s:Atherosclerosis of [place] coronary artery of [place] heart without angina pectoris TAKE 1 TABLET BY MOUTH IN THE MORNING 30 Tablet 11 12/02/2023 5 Active Vitron-C 65-125 MG Oral [...] A1c goal of less than 8.0% (FORMERLY [facility]) Take 1 Tablet by mouth in the morning 30 minutes before a meal. 30 Tablet 5 12/30/2023 Active Pantoprazole Sodium 40 MG Oral Tablet Delayed Release (Protonix)Indicat ions:Esophageal obstruction TAKE 1 TABLET BY MOUTH DAILY. 90 Tablet 3 01/03/2024 Active Incruse Ellipta 62.5 MCG/ACT Inhalation Aerosol Powder Breath Activated (umeclidinium Henderson) inhale ONE puff DAILY. 30 Each 7 [...] as of this encounter (statuses as of 05/24/2024) Active Problems Problem Noted Date Diagnosed Date [...] of bilateral carotid kelby chuyita 11/07/2020 Overview: 6/20 <50% b/l. Gastro-esophageal reflux disease without esophag [...] prep) 06/14 abnormal stress test--referred for CATH @[facility]--mild nonobstructive CAD> patent stent. Cont med mgmt 08/14 BRIGITTE- mod BPH 08/14 TTE normal EF, Gr I saavedra Dys, EGD-dilated Schatzki ring 06/13 PFT--normal spirometry with low norm obstructive index. No response to dilator. Normal diffusing. Some air trapping, suggestive flow patterns for obstruction. Acute. HTN, goal below 130/80 05/02/2012 Coronary atherosclerosis of [place] coronary kelby ry 03/06/2012 Overview: 1. S/p NSTEMI--CAD, NSTEMI , PCI with a bare metal stent to the OM1 on 02/03/12 at [facility] 2. 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 2012 PFT-low normal 08/14 [facility]-upper lobe emphysema, possible basilar fibrosis Lung density on x-ray 06/04/20132013 Overview: 06/13 density -repeat CXR 1mo Overweight (BMI 25.0-29.9) 04/03/2013 0 04/28/2017 Cough 10/24/2012 05/25/2013 Acute bronchitis, antibiotics not indicated 10/11/2012 05/25/2013 Impacted cerumen 10/11/2012 04/28/2017 Dermatitis 10/11/2012 04/28/2017 HTN, goal below 140/80 03/20/201205/02 Overview: Per HTN Protocol #27. Dyslipidemia, goal LDL below 70 02/07/2012 08/11/2022 [facility] [facility] Other*[id number] 02/03/2012 09/07/2016 History of non-ST elevation myocardial [...] as of this encounter (statuses as of 05/24/2024) Immunizations Name Administration Dates Next Due COVID-19 [...] Sign Reading Time Taken Comments Blood Pressure 144/82 05/01/2024 2:52 PM EDT Pulse 66 05/01/2024 2:52 PM EDT Temperature - - Respiratory Rate 16 05/01/2024 2:52 PM EDT Oxygen Saturation 96% 05/01/2024 2:52 PM EDT Inhaled Oxygen Concentration - - Weight 85.9 kg (189 lb 6.4 oz) 05/01/2024 2:52 P M EDT Height 175.3 cm (5' 9") 05/01/2024 2:52 PM EDT Body Mass Index 27.97 05/01/2024 2:52 PM EDT documented in this encounter Functional Status Functional [...] No 06/21/2018 documented as of this encounter Progress Notes * Eddie Ruffin MD - 05/01/2024 3:02 PM EDT SUBJECTIVE: Kaden Badillo is a 73 year old male here for Return Visit (3 month return ) . Uses rolling walker at home now. Weeks ago where he lost his balance and went down fell onto a counter and either bruised her cracked a lower anterior left rib. That is feeling quite a bit better thelast couple weeks or more likely just a bad bruise. No Polyuria polydipsia. Doesn't leave his trailer much due to LE weakness. Uses cane, has walker, "buggy" for outside. Anxiety/insomnia controlled on lorazepam--stable dose for years. Hydrocodone for b/l knee/arthritis pain/back pain allows him to do some ADLs. Tolerates combo with lorazepam well, stable for years. patient has experienced improvement in pain control and level of functioning well on hydrocodone Mood improved on sertraline 150mg. thinks he is doing wpretty well on that dose. The narcotic will be used in combination with tolerated non pharmacologic therapy and non opiate pharacologic therapy and I have reviewed her medical record documentation for urine drug screening testing for listed and illicit drugs with the potential for abuse consistent with prescribed controlled substances. Patient has tried and failed non-drug pain management modalities and non-opioid drugs, acetaminophen, nsaids, etc. It will be used in combination with tolerated non drug therapies and non-opioid meds. Patient was assessed for potential risk of misuse, abuse, and addiction based on family and social history. Patient was counseled regarding potential side effects of opioids including risk or misuse, abuse, addiction. Patient was assessed for recent (w/in 60d) opioid use. Patient was evaluated for risk factors for opioid related harm. If identified to be at high risk for Opioid -related harm, the prescribed considered naloxone. Saw Dr. Sampson for urinary incontinence and had a cystoscopy about 2 weeks ago. Noted to have largeprostate, was started on finasteride but per had a spike in his blood pressure after starting it, so it was stopped. He continues on the Flomax. He is now using depends and that has been very helpful for his quality of life. Does have with Urology in a couple months. Physical: BP 144/82 | Pulse 66 | Resp 16 | Ht 1.753 m (5' 9") | Wt 85.9 kg (189 lb 6.4 oz) | SpO2 96% | BMI 27.97 kg/m | BSA 2.05 m General-No apparent Distress Head, Eyes, Ears, Nose, Throat--Normocephalic, atraumatic Neck-Supple Lymph-no lymphadenopathy Lungs-Clear to Auscultation bilaterally Cardiovascular--Regular rate & Rhythm, +s1, s2, no murmur Abdomen-soft, nontender, nondistended + bowel sounds Mskel +tender left lower anterior rib no stepoff. Extremities--no edema Neuro-alert & oriented x3 (E11.36, Z79.4) Type 2 diabetes mellitus with diabetic cataract, with long-term current use of insulin (HCC) (primary encounter diagnosis) Plan: ALBUMIN / CREATININE RATIO, URINE Labs reviewed/ordered At goal cont mgmt (M51.362) Degeneration of intervertebral disc of lumbar region with discogenic back pain and lower extremity pain Plan: PAIN MANAGEMENT DRUG PANEL, URINE W/ INTERPRETATION contmgmt (M25.561, G89.29) Chronic pain of right knee Plan: PAIN MANAGEMENT DRUG PANEL, URINE W/ INTERPRETATION Cont mgmt Anemia--following with Heme for IV iron BPH /incontinence-f/u uro consider surgery (This note was completed using the dictation program Fluency Direct. As such, there may be misspellings, word substitutions, or other variations that should not change the essence of the clinical content of this encounter note.If there is need for further clarification, please direct questions to the provider listed above.) Eddie Ruffin MD I spent a total of 40-54 minutes (exact time 44 mins) on the date of service in preparation, delivery, and documentation of the care provided to Kadendyana Joinerskey excluding any time spent in the performance of separately billed services or time spent by another provider/QHP. documented in this encounter Nursing Notes * Janell Padron LPN - 05/01/2024 2:52 PM EDT The patient has been properly identified by confirmation of name and date of . Chief Complaint Patient presents with Return Visit 3 month return documented in this encounter Plan of Treatment Upcoming Encounters Date Type Department Care Team (Late st Contact Info) Description 06/26/2024 3:30 PM EST Office Visit Cardiology, [facility] [address] [place] [address] Malathi Newman PA-C [address] [place] [address] 07/03/2024 2:25 PM EST Office Visit Hematology/Oncology [facility] [address] [facility] [place] [phone] Sy Dong MD [address] [facility] [place] [address] 07/17/2024 3:20 PM EST Office Visit Family [facility] [address] [place] [address] Eddie Ruffin MD [address] [place] [address] 08/27/2024 2:45 PM EST Office Visit Urology, [facility] [address] [place] [address] Valentín Sampson MD [address] [place] [address] 10/19/2024 2:00 PM EDT Office Visit [facility] [address] [place] [address] Eddie Ruffin MD [address] [place] [address] 03/12/2025 3:20 PM EDT Office Visit [facility] [address] [place] [address] Eddie Ruffin MD [address] [place] [address] Health Maintenance Due Date Last Done Comments [...] this encounter Medical Devices Implanted Type Area Paving Contractor Device Identifier Shelf Expiration Date Model / Serial / Lot Cement Antibiotic Bone - [id number] Implanted:Qty: 2 on 06/21/2018 by Sridhar Grant MD at OR [facility] Right: Knee DESHAWN : ORTHOPAEDICS 12/29/2018 [id number] / / [id number] Triathlon Asyetric X3 Patell - [id number] Implanted:Qty: 1 on 06/21/2018 by Sridhar Grant MD at OR [facility] Right: Knee DESHAWN : ORTHOPAEDICS 03/15/2023 5551-G-[id number] / / [id number] Component Femoral Rt Size 5 T - [id number] Implanted:Qty: 1 on 06/21/2018 by Sridhar Grant MD at OR [facility] Right: Knee DESHAWN : ORTHOPAEDICS 12/10/2022 [id number]-F-[id number] / / [id number] Knee Baseplate Mis Tib Tri 5 - [id number] Implanted:Qty: 1 on 06/21/2018 by Sridhar Grant MD at OR [facility] Right: Knee DESHAWN : ORTHOPAEDICS 01/12/2023 [id number]-M-[id number] / / [id number] Knee X3 Ins Pos Cs Sz5 9 - [id number] Implanted:Qty: 1 on 06/21/2018 by Sridhar Grant MD at OR [facility] Right: Knee DESHAWN : ORTHOPA[employer]ICS 10/17/2022 5531-G-[id number] / / [id number] documented as of this encounter Procedures Procedure Name Priority Date/Time Associated Diagnosis Comments HYDROCODONE, URINE CONFIRMATION Routine 05/01/2024 3:25 PM EDT Degeneration of intervertebral disc of lumbar region with discogenic back pain and lower extremity pain Chronic pain of right knee PAIN MANAGEMENT DRUG PANEL, URINE W/ INTERPRETATION Routine 05/01/2024 3:25 PM EDT Degeneration of intervertebral disc of lumbar region with discogenic back pain and lower extremity pain Chronic pain of right knee BENZODIAZEPINES, URINE CONFIRMATION Routine 05/01/2024 3:25 PM EDT Degeneration of intervertebral disc of lumbar region with discogenic back pain and lower extremity pain Chronic pain of right knee ALBUMIN / CREATININE RATIO, URINE Routine 05/01/2024 3:25 PM EDT Type 2 diabetes mellitus with diabetic cataract, with long-term current use of insulin ([facility]) documented in this encounter Results * HYDROCODONE / HYDROMORPHONE, URINE CONFIRMATION (05/01/2024 3:25 PM EDT) Methodology LC-MS/MS 05/07/2024 1:03 PM EDT LABORATORY [facility] Hydrocodone Confirmation, U Negative Negative 05/07/2024 1:03 PM EDT LABORATORY [facility] Hydromorphone Confirmation, U Negative Negative 05/07/2024 1:03 PM EDT LABORATORY [facility] Dihydrocodeine Confirmation, U Negative Negative 05/07/2024 1:03 PM EDT LABORATORY [facility] Urine Urine specimen obtained by clean catch procedure / Unknown Non-blood Collection / Unknown 05/01/2024 3:25 PM EDT 05/01/2024 3:25 PM EDT [facility] LABORATORY [facility] - 05/07/2024 1:03 PM EDT Cutoff Concentrations: Drug Level Hydrocodone 40 ng/mL Hydromorphone 40 ng/mL Dihydrocodeine 40 ng/mL This test was developed and its performance characteristics determined by [employer]. It has not been cleared or approved by the [place] Food and Drug Administration. Eddie Ruffin MD LAB URINE ORDERA BLES LABORATORY [facility] [address] [place] [address] * (ABNORMAL) BENZODIAZEPINES, URINE CONFIRMATION (05/01/2024 3:25 PM EDT) Methodology LC-MS/MS 05/06/2024 8:36 AM EDT LABORATORY [facility] Alpha-Hydroxyal prazolam Confirmation, U Negative Negative 05/06/2024 8:36 AM EDT LABORATORY [facility] 7-Aminoclonazep am Confirmation, U Negative Negative 05/06/2024 8:36 AM EDT LABORATORY [facility] Nordiazepam Confirmation, U Negative Negative 05/06/2024 8:36 AM EDT LABORATORY [facility] Oxazepam Confirmation, U Negative Negative 05/06/2024 8:36 AM EDT LABORATORY [facility] Temazepam Confirmation, U Negative Negative 05/06/2024 8:36 AM EDT LABORATORY [facility] Lorazepam Confirmation, U >1,000(H) Negative ng/mL 05/06/2024 8:36 AM EDT LABORATORY [facility] Urine Urine specimen obtained by clean catch procedure / Unknown Non-blood Collection / Unknown 05/01/2024 3:25 PM EDT 05/01/2024 3:25 PM EDT [facility] LABORATORY [facility] - 05/06/2024 8:36 AM EDT Cutoff Concentrations: Drug Level Alpha-Hydroxyalprazolam 10 ng/mL 7-Aminoclonazepam 20 ng/mL Nordiazepam 20 ng/mL Oxazepam 20 ng/mL Temazepam 20 ng/mL Lorazepam 10 ng/mL This test was developed and its performance characteristics determined by [employer]. It has not been cleared or approved by the [place] Food and Drug Administration. Eddie Ruffin MD LAB URINE ORDERA [facility] Organization Address City/State/[facility] Co de Phone Number LABORATORY [address] [address] * (ABNORMAL) PAIN MANAGEMENT DRUG PANEL, URINE W/ INTERPRETATION (05/01/2024 3:25 PM EDT) [facility] Compliance Interpretation Based on the medication information provided and from [facility]: The absence of hydrocodone, dihydrocodeine and hydromorphone is CONSISTENT with the information provided. The presence of lorazepam is CONSISTENT with lorazepam use. There is no evidence of alprazolam use by the patient. 05/07/2024 4:38 PM EDT LABORATORY [facility] Comment:Changed Report: Prev iously reported on 05/02/2024 at 1224 EDT. See Results History in EPIC for previous versions of the report. Amphetamines Screen, U Negative Negative 05/07/2024 4:38 PM EDT LABORATORY [facility] Benzodiazepines Screen, U Refer to confirmation results(A) Negative 05/07/2024 4:38 PM EDT LAB[facility] Cannabinoids Screen, U Negative Negative 05/07/2024 4:38 PM EDT LAB[facility] Cocaine Metabolite Screen, U Negative Negative 05/07/2024 4:38 PM EDT LAB[facility] Fentanyl Screen, U Negative Negative 05/07/2024 4:38 PM EDT LAB[facility] Hydrocodone Screen, U Refer to confirmation results(A) Negative 05/07/2024 4:38 PM EDT LABORATORY C Methadone Metabolite Screen, U Negative Negative 05/07/2024 4:38 PM EDT LABORATORY C Morphine/Codeine Screen, U Negative Negative 05/07/2024 4:38 PM EDT LAB[facility] Oxycodone Screen, U Negative Negative 05/07/2024 4:38 PM EDT LABORATORY C Valid Interpretation Normal 05/07/2024 4:38 PM EDT LABORATORY C Creatinine, U 194 mg/dL 05/07/2024 4:38 PM EDT LABORATORY [facility] Urine Urine specimen obtained by clean catch procedure / Unknown Non-blood Collection / Unknown 05/01/2024 3:25 PM EDT 05/01/2024 3:25 PM EDT Narrative LAB[facility]ATORY [facility] - 05/07/2024 4:38 PM EDT Cutoff Concentrations: Drug Level Amphetamines 500 ng/mL Benzodiazepines 100 ng/mL Cannabinoids 50 ng/mL Cocaine Metabolite 150 ng/mL Fentanyl 1 ng/mL Hydrocodone / Hydromorphone 300 ng/mL Methadone Metabolite 100 ng/mL Morphine / Codeine 300 ng/mL Oxycodone / Oxymorphone 100 ng/mL Screening results are presumptive and can only be used for medical purposes. Confirmatory testing is available upon request. Eddie Ruffin MD LAB URINE ORDERA [facility] Organization Address City/State/ZIP Co de Phone Number LABORATORY [facility] [address] [place] [address] * (ABNORMAL) ALBUMIN / CREATININE RATIO, URINE (05/01/2024 3:25 PM EDT) Albumin, Random Urine 77.00 mg/dL 05/02/2024 12:23 AM EDT LABORATORY [facility] Creatinine, Random Urine 184 mg/dL 05/02/2024 12:23 AM EDT LABORATORY [facility] Albumin / Creatinine Ratio, Urine 418(H) <30 mg/g Creat 05/02/2024 12:23 AM EDT LABORATORY [facility] Urine Urine specimen / Unknown Non-blood Collection / Unknown 05/01/2024 3:25 PM EDT 05/01/2024 3:25 PM EDT Narrative LABORATORY [facility] - 05/02/2024 12:23 AM EDT Normal: <30 mg/g creatinine High: 30-300 mg/g creatinine Very High: >300 mg/g creatinine Nephrotic: >2200 mg/g creatinine Eddie Ruffin MD LAB URINE ORDERA [facility] Organization Address City/State/ZIP Co de Phone Number LABORATORY [facility] [address] [place] [address] documented in this encounter Visit Diagnoses Diagnosis Type 2 diabetes mellitus with diabetic cataract, with long-term current use of insulin (HCC)- Primary Degeneration of intervertebral disc of lumbar region with discogenic back pain and lower extremity pain Chronic pain of right knee Iron deficiency anemia, unspecified iron deficiency anemia type BPH with obstruction/lower urinary tract symptoms Hypertrophy of prostate with urinary obstruction and other lower urinary tract symptoms (LUTS) documented in this encounter Advance Directives * [...] patient or by statute hierarchy) Care Teams Drafter Plumbing Relationship Specialty Start Date End Date Eddie Ruffin MD [address] [place] [address] PCP - General Family Medicine 07/18/14 documented as of this encounter
--- OUTSIDE RECORDS SUMMARY | 2024-07-27 13:16 | External Medical Summary | Summary of Care ---
Author Name Unknown Organization [facility] Address [address] [place] [address] Phone [phone] Care Team Providers Care Benefits Clerk Name Role Phone Eddie Ho MD Primary Care Provider + Reason for Visit * Reason Comments Medication Refill Encounter Details Date Type Department Care Team (Late st Contact Info) Description 06/01/2024 Refill Family Practice [facility] [address] [place] [address] Eddie Ho MD [address] [place] [address] Anxiety Allergies Active Allergy Reactions Criticality Noted Date Comments Formoterol High 02/16/2022 Other reaction(s): RASH Lisinopril Cough Low 10/24/2012 Penicillins Other (Please comment) 08/15/2013 Family hx allergic reaction Simvastatin High 02/16/2022 Other reaction(s): RASH documented as of this encounter (statuses as of 06/01/2024) Medications Medication Sig Dispensed Refills Start Date [...] 3 Each 11 10/17/2023 Active Dexcom G7 Technical Operations Specialist Device Use to read blood glucose values with dexcom G7 sensor E 11.9 1 Each 10/17/2023 Active Isosorbide Mononitrate ER 30 MG Oral Tablet Extended Release 24 Hour (Imdur)Indication s:Atherosclerosis of [place] coronary artery of [place] heart without angina pectoris TAKE 1 TABLET BY MOUTH IN THE MORNING 30 Tablet 11 12/02/2023 05/03/202 5 Active Vitron-C 65-125 MG Oral Tablet (Iron-Vitamin C 65-125 mg per tab) Take 1 Tablet by mouth once a day on Tuesday, Tuesday, and Tuesday only. Active Atorvastatin Calcium 20 MG Oral Tablet (Lipitor)Indicati ons:Dyslipidemia, goal LDL below 70 Take 1 Tablet by mouth in the morning. Do not start until 12/21/23. 100 Tablet 3 12/07/2023 Active glipiZIDE 10 MG Oral Tablet (Glucotrol)Indica tions:Type 2 diabetes mellitus with hemoglobin A1c goal of less than 8.0% ([facility]) Take 1 Tablet by mouth in the morning 30 minutes before a meal. 30 Tablet 5 12/30/2023 Active Pantoprazole Sodium 40 MG Oral Tablet Delayed Release (Protonix)Indicat ions:Esophageal obstruction TAKE 1 TABLET BY MOUTH DAILY. 90 Tablet 3 01/03/2024 Active Incruse Ellipta 62.5 MCG/ACT Inhalation Aerosol Powder Breath Activated (umeclidinium [place]) inhale ONE puff DAILY. 30 Each 7 01/13/2024 Active Losartan Potassium 25 MG Oral Tablet [...] AT BEDTIME 50 mL 1 05/04/2024 Active HYDROcodone-Aceta minophen 5-325 MG Oral TabletIndications :MEDICATION USE AGREEMENT,Arthrit is of right knee Take 1 Tablet by mouth every 6 hours as needed for Pain, Mild. 60 Tablet 05/04/2024 Active LORazepam 1 MG Oral Tablet (Ativan)Indicatio ns:Anxiety TAKE 1 TABLET BY MOUTH UP TO TWICE DAILY FOR ANXIETY/INSOMNIA. 60 Tablet 5 06/01/2024 Active LORazepam 1 MG Oral Tablet (Ativan)Indicatio ns:Anxiety TAKE 1 TABLET BY MOUTH UP TO TWICE DAILY FOR ANXIETY/INSOMNIA. 60 Tablet 5 12/14/2023 4 Discontinue d(Refill) documented as of this encounter (statuses as of 06/01/2024) Active Problems Problem Noted Date Diagnosed Date [...] - LAMA Self-Management plan o Other: call [facility] Exacerbation plan o Has not required [...] prep) 06/14 abnormal stress test--referred for CATH @[facility]--mild nonobstructive CAD> patent stent. Cont med mgmt 08/14 BRIGITTE- mod BPH 08/14 TTE normal EF, Gr I saavedra Dys, EGD-dilated Schatzki ring 06/13 PFT--normal spirometry with low norm obstructive index. No response to dilator. Normal diffusing. Some air trapping, suggestive flow patterns for obstruction. Acute. HTN, goal below 130/80 05/02/2012 Coronary atherosclerosis of [place] coronary kelby ry 03/06/2012 Overview: 1. S/p NSTEMI--CAD, NSTEMI , PCI with a bare metal stent to the OM1 on 02/03/12 at [facility] 2. 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 2012 PFT-low normal 08/14 [facility]-upper lobe emphysema, possible basilar fibrosis Lung density on x-ray 06/04/20132013 Overview: 06/13 density -repeat CXR 1mo Overweight (BMI 25.0-29.9) 04/03/2013 0 04/28/2017 Cough 10/24/2012 05/25/2013 Acute bronchitis, antibiotics not indicated 10/11/2012 05/25/2013 Impacted cerumen 10/11/2012 04/28/2017 Dermatitis 10/11/2012 04/28/2017 HTN, goal below 140/80 03/20/201205/02 Overview: Per HTN Protocol #27. Dyslipidemia, goal LDL below 70 02/07/2012 08/11/2022 [facility] Other*[id number] 02/03/2012 09/07/2016 History of non-ST elevation myocardial [...] as of this encounter (statuses as of 06/01/2024) Immunizations Name Administration Dates Next Due COVID-19 [...] No 06/21/2018 documented as of this encounter Miscellaneous Notes * Telephone Encounter - Eddie Ho MD - 06/01/2024 5:16 PM EDTSigned Prescriptions: Disp Refills LORazepam 1 MG Oral Tablet (Ativan) 60 Tab*5 Sig: TAKE 1 TABLET BY MOUTH UP TO TWICE DAILY FOR ANXIETY/INSOMNIA. Authorizing Provider: EDDIE HO * Telephone Encounter - Marcy Mejia LPN - 06/01/2024 3:41 PM EDTPending Prescriptions: Disp Refills LORazepam 1 MG Oral Tablet (Ativan) 60 Tab*5 Sig: TAKE 1 TABLETBY MOUTH UP TO TWICE DAILY FOR ANXIETY/INSOMNIA. documented in this encounter Plan of Treatment Upcoming Encounters Date Type Department Care Team (Late st Contact Info) Description 06/26/2024 3:30 PM EST Office Visit Cardiology, [facility] [address] [place] [address] Malathi Newman PA-C [address] [place] [address] 07/03/2024 2:25 PM EST Office Visit Hematology/Oncology [facility] [address] [facility] [place] [phone] Sy Dong MD [address] [facility] [place] [address] 07/17/2024 3:20 PM EST Office Visit [facility] [address] [place] [address] Eddie Ho MD [address] [place] [address] 08/27/2024 2:45 PM EST Office Visit Urology, [facility] [address] [place] [address] Valentín Sampson MD [address] [place] [address] 10/19/2024 2:00 PM EDT Office Visit [facility] [address] [place] [address] Eddie Ho MD [address] [place] [address] 03/12/2025 3:20 PM EDT Office Visit Family Practice [facility] [address] [place] [address] Eddie Ho MD [address] [place] [address] Health Maintenance Due Date Last Done Comments [...] , 06/28/2023, Additional history exists Albumin/Creatinine Ratio 05/01/20252 024, [...] this encounter Medical Devices Implanted Type Area Medical Examiner Device Identifier Shelf Expiration Date Model / Serial / Lot Cement Antibiotic Bone - [id number] Implanted:Qty: 2 on 06/21/2018 by Sridhar Grant MD at OR [facility] Right: Knee DESHAWN : ORTHOPAEDICS 12/29/2018 6197-9-010 / / [id number] Triathlon Asyetric X3 Patell - [id number] Implanted:Qty: 1 on 06/21/2018 by Sridhar Grant MD at OR [facility] Right: Knee DESHAWN : ORTHOPAEDICS 03/15/2023 5551-G-350 / / 1VE Component Femoral Rt Size 5 T - [id number] Implanted:Qty: 1 on 06/21/2018 by Sridhar Grant MD at OR [facility] Right: Knee DESHAWN : ORTHOPAEDICS 12/10/2022 5510-F-502 / / [id number] Knee Baseplate Mis Tib Tri 5 - [id number] Implanted:Qty: 1 on 06/21/2018 by Sridhar Grant MD at OR [facility] Right: Knee DESHAWN : ORTHOPAEDICS 01/12/2023 5520-M-500 / / [id number] Knee X3 Ins Pos Cs Sz5 9 - [id number] Implanted:Qty: 1 on 06/21/2018 by Sridhar Grant MD at OR [facility] Right: Knee DESHAWN : ORTHOPAEDICS 10/17/2022 5531-G-509 / / [id number] documented as of this encounter Visit Diagnoses Diagnosis Anxiety Anxiety state, unspecified documented in this encounter Advance Directives * [...] patient or by statute hierarchy) Care Teams Benefits Clerk Relationship Specialty Start Date End Date Eddie Ho MD [address] [place] [address] PCP - General Family Medicine 07/18/14 documented as of this encounter
--- OUTSIDE RECORDS SUMMARY | 2024-07-27 13:17 | External Medical Summary | Summary of Care ---
Author Name Unknown Organization [facility] Address [address] [place] [address] Phone [phone] Care Team Providers Care Dye House Supervisor Name Role Phone Eddie Ho MD Primary Care Provider + Reason for Visit * Reason Comments Medication Refill Encounter Details Date Type Department Care Team (Late st Contact Info) Description 05/02/2024 Refill Family Practice [facility] [address] [place] [address] Eddie Ho MD [address] [place] [address] MEDICATION USE AGREEMENT; Arthritis of right knee Allergies Active Allergy Reactions Criticality Noted Date Comments Formoterol High 02/16/2022 Other reaction(s): RASH Lisinopril Cough Low 10/24/2012 Penicillins Other (Please comment) 08/15/2013 Family hx allergic reaction Simvastatin High 02/16/2022 Other reaction(s): RASH documented as of this encounter (statuses as of 05/04/2024) Medications Medication Sig Dispensed Refills Start Date [...] 3 Each 11 10/17/2023 Active Dexcom G7 Director Oracle Device Use to read blood glucose values with dexcom G7 sensor E 11.9 1 Each 10/17/2023 Active Insulin Glargine 100 UNIT/ML Subcutaneous Solution (Lantus)Indicatio ns:Type 2 diabetes mellitus with hemoglobin A1c goal of less than 8.0% ([facility]) INJECT 55 UNITS UNDER THE SKIN AT BEDTIME 50 mL 1 10/24/2023 Active Isosorbide Mononitrate ER 30 MG Oral Tablet Extended Release 24 Hour (Imdur)Indication s:Atherosclerosis of [place] coronary artery of [place] heart without angina pectoris TAKE 1 TABLET [...] goal of less than 8.0% ([facility]) Take 1 Tablet by mouth in the morning 30 minutes before a meal. 30 Tablet 5 12/30/2023 Active Pantoprazole Sodium 40 MG Oral Tablet Delayed Release (Protonix)Indicat ions:Esophageal obstruction TAKE 1 TABLET BY MOUTH DAILY. 90 Tablet 3 01/03/2024 Active Incruse Ellipta 62.5 MCG/ACT Inhalation Aerosol Powder Breath Activated (umeclidinium [place]) inhale ONE puff DAILY. 30 Each 7 [...] MEALS. 180 Tablet 3 04/16/2024 5 Active HYDROcodone-Aceta minophen 5-325 MG Oral TabletIndications :MEDICATION USE AGREEMENT,Arthrit is of right knee Take 1 Tablet by mouth every 6 hours as needed for Pain, Mild. 60 Tablet 05/04/2024 Active HYDROcodone-Aceta minophen 5-325 MG Oral TabletIndications :MEDICATION USE AGREEMENT,Arthrit is of right knee Take 1 Tablet by mouth every 6 hours as needed for Mild pain 60 Tablet 04/03/2024 4 Discontinue d(Refill) HYDROcodone-Aceta minophen 5-325 MG Oral TabletIndications :MEDICATION USE AGREEMENT,Arthrit is of right knee Take 1 Tablet by mouth every 6 hours as needed for Mild pain 60 Tablet 05/04/2024 4 Discontinue d(Refill) documented as of this encounter (statuses as of 05/04/2024) Active Problems Problem Noted Date Diagnosed Date [...] - LAMA Self-Management plan o Other: call [facility] Exacerbation plan o Has not required in [...] goal below 130/80 05/02/[address] [place] coronary kelby ry 03/06/2012 Overview: 1. S/p NSTEMI--CAD, NSTEMI , PCI with a bare metal stent to the OM1 on 02/03/[address] [facility] 2. Patent OM1 stent with mild [...] as of this encounter (statuses as of 05/04/2024) Resolved Problems Problem Noted Date Diagnosed Date [...] airways disease. 2012 PFT-low normal 08/14 [facility]-upper lobe emphysema, possible basilar fibrosis Lung density on x-ray 06/04/20132013 Overview: 06/13 density -repeat CXR 1mo Overweight (BMI 25.0-29.9) 04/03/2013 0 04/28/2017 Cough 10/24/2012 05/25/2013 Acute bronchitis, antibiotics not indicated 10/11/2012 05/25/2013 Impacted cerumen 10/11/2012 04/28/2017 Dermatitis 10/11/2012 04/28/2017 HTN, goal below 140/80 03/20/201205/02 Overview: Per HTN Protocol #27. Dyslipidemia, goal LDL below 70 02/07/2012 08/11/2022 [facility] Other*[id number] 02/03/2012 09/07/2016 History of non-ST elevation myocardial [...] as of this encounter (statuses as of 05/04/2024) Immunizations Name Administration Dates Next Due COVID-19 [...] as of this encounter Miscellaneous Notes * Addendum Note - Eddie Ho MD - 05/04/2024 5:39 PM EDTAddended by: EDDIE HO on: 05/04/2024 05:39 PM Modules accepted: Orders * Telephone Encounter - Eddie Ho MD - 05/04/2024 5:38 PM EDTSigned Prescriptions: Disp Refills HYDROcodone-Acetaminophen 5-325 MG Oral Ta*60 Tab*0 Sig: Take 1 Tablet by mouth every 6 hours as needed for Mild pain Authorizing Provider: EDDIE HO * Telephone Encounter - Chelsea Miller [facility] - 05/04/2024 8:49 AM EDTPending Prescriptions: Disp Refills HYDROcodone-Acetaminophen 5-325 MG Oral Ta*60 Tab*0 Sig: Take 1 Tablet by mouth every 6 hours as needed for Mild pain * Telephone Encounter - Chelsea Miller [facility] - 05/04/2024 8:49 AM EDT I have reviewed the patients controlled substance dispensing history in the Prescription Drug Monitoring Program in compliance with the [facility] regulations before prescribing a controlled substance. PDMP checked on 05/04/2024. Pending Prescriptions: Disp Refills HYDROcodone-Acetaminophen 5-325 MG Oral T*60 Tab*0 Sig: Take 1 Tablet by mouth every 6 hours as needed for Mild pain Last Visit: 05/01/2024 (in office), 04/14/2020 (telemedicine) Next Visit: 07/17/2024 Date medication was last filled: 04/03/24 Date medication is due for refill: 04/17/24 Pharmacy: [facility] Is this request for a controlled substance? Yes and Urine Drug Screen was completed Toxicology results: Results for orders placed or performed in visit on 05/01/24 PAIN MANAGEMENT DRUG PANEL, URINE W/ INTERPRETATION Result Value Compliance Interpretation Amphetamines Screen, U Negative Benzodiazepines Screen, U Refer to confirmation results (A) Cannabinoids Screen, U Negative Cocaine Metabolite Screen, U Negative Fentanyl Screen, U Negative Hydrocodone Screen, U Refer to confirmation results (A) Methadone Metabolite Screen, U Negative Morphine/Codeine Screen, U Negative Oxycodone Screen, U Negative Valid Interpretation Normal Creatinine, U 194 Narrative Cutoff Concentrations: Drug Level Amphetamines 500 ng/mL Benzodiazepines 100 ng/mL Cannabinoids 50 ng/mL Cocaine Metabolite 150 ng/mL Fentanyl 1 ng/mL Hydrocodone / Hydromorphone 300 ng/mL Methadone Metabolite 100 ng/mL Morphine / Codeine 300 ng/mL Oxycodone / Oxymorphone 100 ng/mL Screening results are presumptive and can only be used for medical purposes. Confirmatory testing is available upon request. *Note: Due to a large number of results and/or encounters for the requested time period, some results have not been displayed. A complete set of results can be found in Results Review. Please approve if appropriate. Chelsea Ivy Clinical Pharmacist [facility] ([facility]) [phone] 05/04/2024, 8:49 AM documented in this encounter Plan of Treatment Upcoming Encounters Date Type Department Care Team (Late st Contact Info) Description 06/26/2024 3:30 PM EST Office Visit Cardiology, [facility] [address] [place] [address] Malathi Newman PA-C [address] [place] [address] 07/03/2024 2:25 PM EST Office Visit Hematology/Oncology [facility] [address] [facility] [place] [phone] [facility] [address] [facility] [address] 07/17/2024 3:20 PM EST Office Visit Family Practice [facility] [address] [address] Eddie Ho MD [address] [place] [address] 08/27/2024 2:45 PM EST Office Visit Urology, [facility] [address] [place] [address] Valentín Sampson MD [address] [place] [address] 10/19/2024 2:00 PM EDT Office Visit [facility] [address] [place] [address] Eddie Ho MD [address] [place] [address] 03/12/2025 3:20 PM EDT Office Visit [facility] [address] [place] [address] Eddie Ho MD [address] [place] [address] Health Maintenance Due Date Last Done Comments Adult Wellness Visit 08/04/2022 08/04/2021 Colonoscopy 03/22/2023 03/22/2018, 03/02, 02/24/2016, Additional history exists COVID-19 Vaccine ( season) 2024 11/05/2020, 10/13/2020 Influenza Vaccine (FLU shot) (#1) 2024 07/01/2023, 04/16/2022, 04/29/2021, Additional history exists HbA1c 10/08/2024 04/10/2024, 3 , 06/28/2023, Additional history exists Diabetic Eye Exam 10/26/2024 10/27/2023 (Do ne elsewhere), 01/28/2023, 01/28/2023, Additional history exists Diabetic Foot Exam [...] this encounter Medical Devices Implanted Type Area Web Search Evaluator Device Identifier Shelf Expiration Date Model / Serial / Lot Cement Antibiotic Bone - [id number] Implanted:Qty: 2 on 06/21/2018 by Sridhar rGant MD [place] [facility] [place]: Knee DESHAWN : ORTHOPAEDICS 12/29/2018 6197-9-010 / / [id number] Triathlon Asyetric X3 Patell - [id number] Implanted:Qty: 1 on 06/21/2018 by Sridhar Grant MD at [place] [facility] Right: Knee DESHAWN : ORTHOPAEDICS 03/15/2023 5551-G-350 / / 1VE Component Femoral Rt Size 5 T - [id number] Implanted:Qty: 1 on 06/21/2018 by Sridhar Grant MD at [place] [facility] Right: Knee DESHAWN : ORTHOPAEDICS 12/10/2022 5510-F-502 / / [id number] Knee Baseplate Mis Tib Tri 5 - [id number] Implanted:Qty: 1 on 06/21/2018 by Sridhar Grant MD at [place] [facility] Right: Knee DESHAWN : ORTHOPAEDICS 01/12/2023 5520-M-500 / / [id number] Knee X3 Ins Pos Cs Sz5 9 - [id number] Implanted:Qty: 1 on 06/21/2018 by Sridhar Grant MD at [place] [facility] Right: Knee DESHAWN : ORTHOPAEDICS 10/17/2022 5531-G-509 / / [id number] documented as of this encounter Visit Diagnoses Diagnosis MEDICATION USE AGREEMENT Arthritis of right knee Unspecified arthropathy, lower leg documented in this encounter Advance Directives * [...] patient or by statute hierarchy) Care Teams Dye House Supervisor Relationship Specialty Start Date End Date Eddie Ho MD [address] [place] [address] PCP - General Family Medicine 07/18/14 documented as of this encounter
--- OUTSIDE RECORDS SUMMARY | 2024-07-27 13:17 | External Medical Summary ---
Author Name Unknown Address Unknown Organization K01:LABORATORY [facility] - [facility] [place] [address] Laboratory Report Ordering Provider Test Date Status VIC MEANS 05/01/2024 15:25:32 Final Normal: <30 mg/g creatinine< br/>High: 30-300 mg/g creatinine
Very High: >300 mg/g creatinine
Nephrotic: >2200 mg/g creatinine Observation Date Value Abnormality Reference (Units ) Status Albumin, Urine 05/01/2024 15:25:32 77.00 (mg/dL) Final Creatinine, Urine 05/01/2024 15:25:32 184 (mg/dL) Final Albumin/Creatinine [Mass Ratio] in Urine 05/01/2024 15:25:32 418 Above high normal <30 (mg/g Creat) Final Performing Location LABORATORY [facility] - [facility] [place] [address]
--- OUTSIDE RECORDS SUMMARY | 2024-07-27 13:17 | External Medical Summary | Summary of Care ---
Author Name Unknown Organization [facility] Address [address] [place] [address] Phone [phone] Care Team Providers Care Process Development Associate Name Role Phone Eddie Ruffin MD Primary Care Provider + Reason for Visit * Reason Onset Date Comments Medication Pre-auth 05/05/2024 Hydrocodone Encounter Details Date Type Department Care Team (Late st Contact Info) Description 05/05/2024 Telephone Family Practice [facility] [address] [place] [address] Eddie Ruffin MD [address] [place] [address] Medication Pre-auth (Hydrocodone) Allergies Active Allergy Reactions Criticality Noted Date Comments Formoterol High 02/16/2022 Other reaction(s): RASH Lisinopril Cough Low 10/24/2012 Penicillins Other (Please comment) 08/15/2013 Family hx allergic reaction Simvastatin High 02/16/2022 Other reaction(s): RASH documented as of this encounter (statuses as of 05/08/2024) Medications Medication Sig Dispensed Refills Start Date [...] 3 Each 11 10/17/2023 Active Dexcom G7 Lawn Mower Operator Device Use to read blood glucose values with dexcom G7 sensor E 11.9 1 Each 10/17/2023 Active Isosorbide Mononitrate ER 30 MG Oral Tablet Extended Release 24 Hour (Imdur)Indications :Atherosclerosis of [place] coronary artery of [place] heart without angina pectoris TAKE 1 TABLET [...] goal of less than 8.0% ([facility]) Take 1 Tablet by mouth in the morning 30 minutes before a meal. 30 Tablet 5 12/30/2023 Active Pantoprazole Sodium 40 MG Oral Tablet Delayed Release (Protonix)Indicati ons:Esophageal obstruction TAKE 1 TABLET BY MOUTH DAILY. 90 Tablet 3 01/03/2024 Active Incruse Ellipta 62.5 MCG/ACT Inhalation Aerosol Powder Breath Activated (umeclidinium [place]) inhale ONE puff DAILY. 30 Each 01/13/2024 01/12/2025 Active Losartan Potassium 25 MG [...] as of this encounter (statuses as of 05/08/2024) Active Problems Problem Noted Date Diagnosed Date [...] - LAMA Self-Management plan o Other: call [facility] Exacerbation plan o Has not required in [...] 2022 wants to defer colonoscopy NEED zoster. 8/18 colon-1 5mm polyp PATH adenoma 02/13 colonoscopy- 2polyps PATH tubular adenoma + adenomatous. DANIELE 2y (fair prep) 06/14 abnormal stress test--referred for CATH @[facility]--mild nonobstructive CAD> patent stent. Cont med mgmt 08/14 BRIGITTE- mod BPH 08/14 TTE normal EF, Gr I saavedra Dys, EGD-dilated Schatzki ring 06/13 PFT--normal spirometry with low norm obstructive index. No response to dilator. Normal diffusing. Some air trapping, suggestive flow patterns for obstruction. Acute. HTN, goal below 130/80 05/02/2012 Coronary atherosclerosis of [place] coronary kelby ry 03/06/2012 Overview: 1. S/p NSTEMI--CAD, NSTEMI , PCI with a bare metal stent to the OM1 on 02/03/12 at [facility] 2. 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 2012 PFT-low normal 08/14 [facility]-upper lobe emphysema, possible basilar fibrosis Lung density on x-ray 06/04/20132013 Overview: 06/13 density -repeat CXR 1mo Overweight (BMI 25.0-29.9) 04/03/2013 0 04/28/2017 Cough 10/24/2012 05/25/2013 Acute bronchitis, antibiotics not indicated 10/11/2012 05/25/2013 Impacted cerumen 10/11/2012 04/28/2017 Dermatitis 10/11/2012 04/28/2017 HTN, goal below 140/80 03/20/201205/02 Overview: Per HTN Protocol #27. Dyslipidemia, goal LDL below 70 02/07/2012 08/11/2022 [employer] Other*[id number] 02/03/2012 09/07/2016 History of non-ST elevation myocardial [...] as of this encounter (statuses as of 05/08/2024) Immunizations Name Administration Dates Next Due COVID-19 [...] encounter Miscellaneous Notes * Telephone Encounter - Jennifer Viveros LPN - 05/08/2024 1:36 PM EDT Awaiting fax stating medication was denied. * Telephone Encounter - Amarilis Swain director credit risk - 05/05/2024 10:56 AM EDT Patients insurance would like to inform the office that HYDROcodone- Acetaminophen 5-325 MG Oral Tablet is denied because opoid and benzodiazepine not viewed as medically necessary for this patient . They will fax this info to the office, please review and resubmit if appropriate. Thank you, Amarilis Swain CPhT Package Lift Operator II, Certified [facility] ([facility]) 05/05/2024,10:56 AM * Telephone Encounter - Azul Gonzalez CPhT - 05/05/2024 10:14 AM EDT Patients insurance would like to inform the office that Hydrocodone Apap is requiring additional information: clinical notes. Prior authorization entered in PromptPA at [facility]. EOC# [id number] Please send to [facility] before noon today. Thank you, Azul Gonzalez CPhT Shrimp Pond Laborer Centralized Clinical Pharmacy Services ([facility]PS) 05/05/2024,10:14 AM documented in this encounter Plan of Treatment Upcoming Encounters Date Type Department Care Team (Late st Contact Info) Description 06/26/2024 3:30 PM EST Office Visit Cardiology, [facility] [address] [place] [address] Malathi Newman PA-C [address] [place] [address] 07/03/2024 2:25 PM EST Office Visit Hematology/Oncology [facility] [address] [place] [phone] Sy Dong MD [address] [place] [address] 07/17/2024 3:20 PM EST Office Visit [facility] [address] [place] [address] Eddie Ruffin MD [address] [place] [address] 08/27/2024 2:45 PM EST Office Visit Urology, [facility] [address] [place] [address] Valentín Sampson MD [address] [place] [address] 10/19/2024 2:00 PM EDT Office Visit [facility] [address] [place] [address] Eddie Ruffin MD [address] [place] [address] 03/12/2025 3:20 PM EDT Office Visit Family Practice [facility] [address] [place] [address] Eddie Ruffin MD [address] [place] [address] Health Maintenance Due Date Last Done Comments [...] this encounter Medical Devices Implanted Type Area Press Department Manager Device Identifier Shelf Expiration Date Model / Serial / Lot Cement Antibiotic Bone - [id number] Implanted:Qty: 2 on 06/21/2018 by Sridhar Grant MD at OR [facility] Right: Knee DESHAWN : ORTHOPAEDICS 12/29/2018 6197-9-010 / / [id number] Triathlon Asyetric X3 Patell - [id number] Implanted:Qty: 1 on 06/21/2018 by Sridhar Grant MD at OR [facility] [place] Right: Knee DESHAWN : ORTHOPAEDICS 03/15/2023 5551-G-350 / / [id number] Femoral Rt Size 5 T - [id number] Implanted:Qty: 1 on 06/21/2018 by Sridhar Grant MD at OR [facility] [place] Right: Knee DESHAWN : ORTHOPAEDICS 12/10/2022 5510-F-502 / / [id number] Knee Baseplate Mis Tib Tri 5 - [id number] Implanted:Qty: 1 on 06/21/2018 by Sridhar Grant MD at OR [facility] [place] Right: Knee DESHAWN : ORTHOPAEDICS 01/12/2023 5520-M-500 / / [id number] Knee X3 Ins Pos Cs Sz5 9 - [id number] Implanted:Qty: 1 on 06/21/2018 by Sridhar Grant MD at OR [facility] Right: Knee DESHAWN : ORTHOPAEDICS 10/17/2022 5531-G-509 / / [id number] documented as of this encounter Advance Directives [...] patient or by statute hierarchy) Care Teams Process Development Associate Relationship Specialty Start Date End Date Eddie Ruffin MD [address] [place] [address] PCP - General Family Medicine 07/18/14 documented as of this encounter
--- OUTSIDE RECORDS SUMMARY | 2024-07-27 13:17 | External Medical Summary | Summary of Care ---
Author Name Unknown Organization [facility] Address [address] [place] [address] Phone [phone] Care Team Providers Care Engineering Group Manager Name Role Phone Eddie Ruffin MD Primary Care Provider + Reason for Visit * Reason Onset Date Comments Medication Pre-auth 05/05/2024 Hydrocodone Encounter Details Date Type Department Care Team (Late st Contact Info) Description 05/05/2024 Telephone Family Practice [facility] [address] [place] [address] Eddie Ruffin MD [address] [place] [address] Medication Pre-auth (Hydrocodone) Allergies Active Allergy Reactions Criticality Noted Date Comments Formoterol High 02/16/2022 Other reaction(s): RASH Lisinopril Cough Low 10/24/2012 Penicillins Other (Please comment) 08/15/2013 Family hx allergic reaction Simvastatin High 02/16/2022 Other reaction(s): RASH documented as of this encounter (statuses as of 05/05/2024) Medications Medication Sig Dispensed Refills Start Date [...] 3 Each 11 10/17/2023 Active Dexcom G7 Fire Safety Manager Device Use to read blood glucose values with dexcom G7 sensor E 11.9 1 Each 10/17/2023 Active Isosorbide Mononitrate ER 30 MG Oral Tablet Extended Release 24 Hour (Imdur)Indications :Atherosclerosis of [place] coronary artery of [place] heart without angina pectoris TAKE 1 TABLET [...] A1c goal of less than 8.0% ([facility]) Take 1 Tablet by mouth in the morning 30 minutes before a meal. 30 Tablet 5 12/30/2023 Active Pantoprazole Sodium 40 MG Oral Tablet Delayed Release (Protonix)Indicati ons:Esophageal obstruction TAKE 1 TABLET BY MOUTH DAILY. 90 Tablet 3 01/03/2024 Active Incruse Ellipta 62.5 MCG/ACT Inhalation Aerosol Powder Breath Activated (umeclidinium [place]) inhale ONE puff DAILY. 30 Each 01/13/2024 [...] as of this encounter (statuses as of 05/05/2024) Active Problems Problem Noted Date Diagnosed Date [...] - LAMA Self-Management plan o Other: call [facility] Exacerbation plan o Has not [...] prep) 06/14 abnormal stress test--referred for CATH @[facility]--mild nonobstructive CAD> patent stent. Cont med mgmt 08/14 BRIGITTE- mod BPH 08/14 TTE normal EF, Gr I saavedra Dys, EGD-dilated Schatzki ring 06/13 PFT--normal spirometry with low norm obstructive index. No response to dilator. Normal diffusing. Some air trapping, suggestive flow patterns for obstruction. Acute. HTN, goal below 130/80 05/02/2012 Coronary atherosclerosis of [place] coronary kelby ry 03/06/2012 Overview: 1. S/p NSTEMI--CAD, NSTEMI , PCI with a bare metal stent to the OM1 on 02/03/12 at [facility] 2. 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 documented as of this encounter (statuses as of 05/05/2024) Resolved Problems Problem Noted Date Diagnosed Date [...] disease witho ut cerebral infarction 09/22/2018 08/11/2022 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 Dyslipidemia, goal LDL below 70 02/07/2012 08/11/2022 [employer] Other*[id number] 02/03/2012 09/07/2016 History of non-ST elevation myocardial [...] as of this encounter (statuses as of 05/05/2024) Immunizations Name Administration Dates Next Due COVID-19 [...] encounter Miscellaneous Notes * Telephone Encounter - Amarilis Swain skills trainer - 05/05/2024 10:56 AM EDT Patients insurance would like to inform the office that HYDROcodone- Acetaminophen 5-325 MG Oral Tablet is denied because opoid and benzodiazepine not viewed as medically necessary for this patient . They will fax this info to the office, please review and resubmit if appropriate. Thank you, Amairlis Swain CPhT Cash Shortage Investigator II, Certified [facility]ized [facility] Pharm[facility] Services ([facility]PS) 05/05/2024,10:56 AM * Telephone Encounter - Azul Gonzalez CPhT - 05/05/2024 10:14 AM EDT Patients insurance would like to inform the office that Hydrocodone Apap is requiring additional information: clinical notes. Prior authorization entered in PromptPA at [facility]. EOC# [id number] Please send to [facility] before noon today. Thank you, Azul Gonzalez CPhT Atm Manager Centralized Clinical Pharmacy Services ([facility]PS) 05/05/2024,10:14 AM documented in this encounter Plan of Treatment Upcoming Encounters Date Type Department Care Team (Late st Contact Info) Description 06/26/2024 3:30 PM EST Office Visit Cardiology, [facility] [address] [place] [address] Malathi Newman PA-C [address] [place] [address] 07/03/2024 2:25 PM EST Office Visit Hematology/Oncology [facility] [address] [facility] [place] [phone] Sy Dong MD [address] [facility] [place] [address] 07/17/2024 3:20 PM EST Office Visit Family [facility] [address] [place] [address] Eddie Ruffin MD [address] [facility] [place] [address] 08/27/2024 2:45 PM EST Office Visit Urology, [facility] [address] [place] [address] Valentín Sampson MD [address] [place] [address] 10/19/2024 2:00 PM EDT Office Visit [facility] [address] [facility] [place] [address] Eddie Ruffin MD [address] [place] [address] 03/12/2025 3:20 PM EDT Office Visit [facility] [address] [address] Eddie Ruffin MD [address] [facility] [place] [address] Health Maintenance Due Date Last Done Comments [...] this encounter Medical Devices Implanted Type Area Prop And Effects Designer Device Identifier Shelf Expiration Date Model / Serial / Lot Cement Antibiotic Bone - [id number] Implanted:Qty: 2 on 06/21/2018 by Sridhar Grant MD at OR [facility] Right: Knee DESHAWN : ORTHOPAEDICS 12/29/2018 6197-9-010 / / [id number] Triathlon Asyetric X3 Patell - [id number] Implanted:Qty: 1 on 06/21/2018 by Sridhar Grant MD at OR [facility] Right: Knee DESHAWN : ORTHOPAEDICS 03/15/2023 5551-G-350 / / [id number] Femoral Rt Size 5 T - [id number] Implanted:Qty: 1 on 06/21/2018 by Sridhar Grant MD at OR [facility] Right: Knee DESHAWN : ORTHOPAEDICS 12/10/2022 5510-F-502 / / [id number] Knee Baseplate Mis Tib Tri 5 - [id number] Implanted:Qty: 1 on 06/21/2018 by Sridhar Grant MD at OR [facility] Right: Knee DESHAWN : ORTHOPAEDICS 01/12/2023 5520-M-500 / / [id number] Knee X3 Ins Pos Cs Sz5 9 - [id number] Implanted:Qty: 1 on 06/21/2018 by Sridhar Grant MD at OR [facility] Right: Knee DESHAWN : ORTHOPAEDICS 10/17/2022 5531-G-509 / / [id number] documented as of this encounter Advance Directives [...] patient or by statute hierarchy) Care Teams Engineering Group Manager Relationship Specialty Start Date End Date Eddie Ruffin MD [address] [place] [address] PCP - General Family Medicine 07/18/14 documented as of this encounter
--- OUTSIDE RECORDS SUMMARY | 2024-07-27 13:17 | External Medical Summary ---
Author Name Unknown Address Unknown Organization K01:[facility] [address] Laboratory Report Ordering Provider Test Date Status VIC MEANS 05/01/2024 15:25:32 Final Drugs that require complianc e testing:

Opioids:
Hydrocodone: Quantity unknown Date/Time of last Dose within the last week

Benzodiazepines
Alprazolam: Quantity unknown Date/Time of last Dose unknown

Cutoff Concentrations:
Drug Level
Hydrocodone 40 ng/mL
Hydromorphone 40 ng/mL
Dihydrocodeine 40 ng/mL

This test was developed and its performance characteristics determined by [facility]. It has not been cleared or approved by the [place] Food and Drug Administration. Observation Date Value Abnormality Reference (Units ) Status METHODOLOGY 05/01/2024 15:25:32 LC-MS/MS Final HYDROcodone cutoff [Mass/volume] in Urine for Confirmatory method 05/01/2024 15:25:32 Negative Negative Final HYDROmorphone [Mass/volume] in Urine 05/01/2024 15:25:32 Negative Negative Final Dihydrocodeine [Mass/volume] in Urine by Confirmatory method 05/01/2024 15:25:32 Negative Negative Final Performing Location [facility] [place] [address]
--- OUTSIDE RECORDS SUMMARY | 2024-07-27 13:17 | External Medical Summary | Summary of Care ---
Author Name Unknown Organization [facility] Address [address] [place] [address] Phone [phone] Care Team Providers Care Cook Starch Name Role Phone Eddie Ruffin MD Primary Care Provider + Reason for Visit * Reason Onset Date Comments Health Maintenance 05/10/2024 Encounter Details Date Type Department Care Team (Late st Contact Info) Description 05/10/2024 Telephone Family Practice [facility] [address] [place] [address] Eddie Ruffin MD [address] [place] [address] Health Maintenance Allergies Active Allergy Reactions Criticality Noted Date Comments Formoterol High 02/16/2022 Other reaction(s): RASH Lisinopril Cough Low 10/24/2012 Penicillins Other (Please comment) 08/15/2013 Family hx allergic reaction Simvastatin High 02/16/2022 Other reaction(s): RASH documented as of this encounter (statuses as of 05/10/2024) Medications Medication Sig Dispensed Refills Start Date [...] 3 Each 11 10/17/2023 Active Dexcom G7 Sales Contractor Device Use to read blood glucose values with dexcom G7 sensor E 11.9 1 Each 10/17/2023 Active Isosorbide Mononitrate ER 30 MG Oral Tablet Extended Release 24 Hour (Imdur)Indications :Atherosclerosis of [place] coronary artery of [place] heart without angina pectoris TAKE 1 TABLET [...] A1c goal of less than 8.0% ([facility]) Take 1 Tablet by mouth in the morning 30 minutes before a meal. 30 Tablet 5 12/30/2023 Active Pantoprazole Sodium 40 MG Oral Tablet Delayed Release (Protonix)Indicati ons:Esophageal obstruction TAKE 1 TABLET BY MOUTH DAILY. 90 Tablet 3 01/03/2024 Active Incruse Ellipta 62.5 MCG/ACT Inhalation Aerosol Powder Breath Activated (umeclidinium [place]) inhale ONE puff DAILY. 30 Each 7 [...] as of this encounter (statuses as of 05/10/2024) Active Problems Problem Noted Date Diagnosed Date [...] - LAMA Self-Management plan o Other: call [facility] Exacerbation plan o Has not [...] prep) 06/14 abnormal stress test--referred for CATH @[facility]--mild nonobstructive CAD> patent stent. Cont med mgmt 08/14 BRIGITTE- mod BPH 08/14 TTE normal EF, Gr I saavedra Dys, EGD-dilated Schatzki ring 06/13 PFT--normal spirometry with low norm obstructive index. No response to dilator. Normal diffusing. Some air trapping, suggestive flow patterns for obstruction. Acute. HTN, goal below 130/80 05/02/2012 Coronary atherosclerosis of [place] coronary kelby ry 03/06/2012 Overview: 1. S/p NSTEMI--CAD, NSTEMI , PCI with a bare metal stent to the OM1 on 02/03/12 at [facility] 2. 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 2012 PFT-low normal 08/14 [facility]-upper lobe emphysema, possible basilar fibrosis Lung density on x-ray 06/04/20132013 Overview: 06/13 density -repeat CXR 1mo Overweight (BMI 25.0-29.9) 04/03/2013 0 04/28/2017 Cough 10/24/2012 05/25/2013 Acute bronchitis, antibiotics not indicated 10/11/2012 05/25/2013 Impacted cerumen 10/11/2012 04/28/2017 Dermatitis 10/11/2012 04/28/2017 HTN, goal below 140/80 03/20/201205/02 Overview: Per HTN Protocol #27. Dyslipidemia, goal LDL below 70 02/07/2012 08/11/2022 [facility] Other*[id number] 02/03/2012 09/07/2016 History of non-ST elevation myocardial [...] as of this encounter (statuses as of 05/10/2024) Immunizations Name Administration Dates Next Due COVID-19 [...] No 05/01/2024 Does the household have a [facility] source of income? (Household - for ages [...] encounter Miscellaneous Notes * Telephone Encounter - Elida Bliss LPN - 05/10/2024 8:15 AM EDT Care Gaps Comprehensive Care Outreach Last Office/Telemedicine Visit: 05/01/2024 (in office), 04/14/2020 (telemedicine) Next Office Visit: 07/17/2024 Hemoglobin AIC Results: Lab Results Component Value Date/Time HEMOGLOBIN A1C - [facility] 7.3 (H) 04/10/2024 02:37 PM HEMOGLOBIN A1C - [facility] 7.2 (H) 11/29/2023 02:49 PM HEMOGLOBIN A1C - [facility] 6.9 (H) 06/28/2023 12:12 PM HEMOGLOBIN A1C - [facility] 7.7 (H) 07/21/2020 12:14 PM HEMOGLOBIN A1C - [facility] 7.5 (H) 02/06/2020 03:53 PM HEMOGLOBIN A1C - [facility] 7.8 (H) 07/11/2019 11:53 AM BP Readings from Last 1 Encounters: 05/01/24 144/82 Reviewed Health Maintenance below: Health Maintenance Topic Date Due Adult Wellness Visit 08/04/2022 Colonoscopy 03/22/2023 Influenza Vaccine (FLU shot) (1) 04/01/2024 COVID-19 Vaccine ( season) 2024 Awv Colon unable they were following with a ct Care Gap Outreach Action Taken: eyefactive message sent documented in this encounter Plan of Treatment Upcoming Encounters Date Type Department Care Team (Late st Contact Info) Description 06/26/2024 3:30 PM EST Office Visit Cardiology, [facility] [address] [place] [address] Malathi Newman PA-C [address] [place] [address] 07/03/2024 2:25 PM EST Office Visit [facility]ology[facility] [address] [facility] [place] [phone] Sy Dong MD [address] [facility] [place] [address] 07/17/2024 3:20 PM EST Office Visit Family [facility] [address] [place] [address] Eddie Ruffin MD [address] [place] [address] 08/27/2024 2:45 PM EST Office Visit Urology, [facility] [address] [place] [address] Valentín Sampson MD [address] [place] [address] 10/19/2024 2:00 PM EDT Office Visit [facility] [address] [place] [address] Eddie Ruffin MD [address] [place] [address] 03/12/2025 3:20 PM EDT Office Visit [facility] [address] [place] [address] Eddie Ruffin MD [address] [place] [address] Health Maintenance Due Date Last Done Comments [...] encounter Medical Devices Implanted Type Area Supervisor Dock Device Identifier Shelf Expiration Date Model / Serial / Lot Cement Antibiotic Bone - [id number] Implanted:Qty: 2 on 06/21/2018 by Sridhar Grant MD at OR [facility] Right: Knee DESHAWN : ORTHOPAEDICS 12/29/2018 6197-9-010 / / [id number] Triathlon Asyetric X3 Patell - [id number] Implanted:Qty: 1 on 06/21/2018 by Sridhar Grant MD at OR [facility] Right: Knee DESHAWN : ORTHOPAEDICS 03/15/2023 5551-G-350 / / [id number] Component Femoral Rt Size 5 T - [id number] Implanted:Qty: 1 on 06/21/2018 by Sridhar Grant MD at OR [facility] Right: Knee DESHAWN : ORTHOPAEDICS 12/10/2022 5510-F-502 / / [id number] Knee Baseplate Mis Tib Tri 5 - [id number] Implanted:Qty: 1 on 06/21/2018 by Sridhar Grant MD at OR [facility] Right: Knee DESHAWN : ORTHOPAEDICS 01/12/2023 5520-M-500 / / [id number] Knee X3 Ins Pos Cs Sz5 9 - [id number] Implanted:Qty: 1 on 06/21/2018 by Sridhar Grant MD at OR [facility] Right: Knee DESHAWN : ORTHOPAEDICS 10/17/2022 5531-G-509 / / [id number] documented as of this encounter Advance Directives [...] patient or by statute hierarchy) Care Teams Cook Starch Relationship Specialty Start Date End Date Eddie Ruffin MD [address] [place] [address] PCP - General Family Medicine 07/18/14 documented as of this encounter
--- OUTSIDE RECORDS SUMMARY | 2024-07-27 13:17 | External Medical Summary ---
Author Name Unknown Address Unknown Organization K01:[facility] [address] [facility] [address] Laboratory Report Ordering Provider Test Date Status MARILEE MEANSASHLEY 05/01/2024 15:25:32 Final Drugs that require complianc e testing:

Opioids:
Hydrocodone: Quantity unknown Date/Time of last Dose within the last week

Benzodiazepines
Alprazolam: Quantity unknown Date/Time of last Dose unknown

Cutoff Concentrations:
Drug Level
Amphetamines 500 ng/mL
Benzodiazepines 100 ng/mL
Cannabinoids 50 ng/mL
Cocaine Metabolite 150 ng/mL
Fentanyl 1 ng/mL
Hydrocodone / Hydromorphone 300 ng/mL
Methadone Metabolite 100 ng/mL
Morphine / Codeine 300 ng/mL
Oxycodone / Oxymorphone 100 ng/mL

Screening results are presumptive and can only be used for medical purposes. Confirmatory testing is available upon request. Observation Date Value Abnormality Reference (Units) Status COMPLIANCE INTERPRETATION 05/01/2024 15:25:32 Based on the medication information provided and from EPIC: Final COMPLIANCE INTERPRETATION 05/01/2024 15:25:32 The absence of hydrocodone, dihydrocodeine and hydromorphone is CONSISTENT with the information provided. Final COMPLIANCE INTERPRETATION 05/01/2024 15:25:32 The presence of lorazepam is CONSISTENT with lorazepam use. There is no evidence of alprazolam use by the patient. Final Changed Report: Previously r eported on 05/02/2024 at 1224 EDT. See Results History in EPIC for previous versions of the report. Amphetamines, Urine screen 05/01/2024 15:25:32 Negative Negative Final Benzodiazepines, Urine screen 05/01/2024 15:25:32 Refer to confirmation results Abnormal Negative Final Cannabinoids, Urine screen 05/01/2024 15:25:32 Negative Negative Final Cocaine Metabolite, Urine screen 05/01/2024 15:25:32 Negative Negative Final fentaNYL [Presence] in Urine by Screen method 05/01/2024 15:25:32 Negative Negative Final HYDROcodone [Presence] in Urine by Screen method 05/01/2024 15:25:32 Refer to confirmation results Abnormal Negative Final 7-Zrcefgdtrl-1,5-Dimeth yl-3,3-Diphenylpyrrolid ine (EDDP) [Presence] in Urine 05/01/2024 15:25:32 Negative Negative Final Opiates, Urine screen 05/01/2024 15:25:32 Negative Negative Final oxyCODONE [Presence] in Urine by Screen method 05/01/2024 15:25:32 Negative Negative Final FORENSIC VALID INTERPRETATION 05/01/2024 15:25:32 Normal Final Creatinine, Urine 05/01/2024 15:25:32 194 (mg/dL) Final Performing Location [facility] [address] [place] [facility] [address]
--- OUTSIDE RECORDS SUMMARY | 2024-07-27 13:17 | External Medical Summary | Summary of Care ---
Author Name Unknown Organization [facility] Address [address] [place] [address] Phone [phone] Care Team Providers Care Slasher Sawyer Name Role Phone Eddie Ho MD Primary Care Provider + Reason for Visit * Reason Comments Medication Refill Encounter Details Date Type Department Care Team (Late st Contact Info) Description 05/03/2024 Refill Family Practice [facility] [address] [place] [address] Eddie Ho MD [address] [place] [address] Type 2 diabetes mellitus with hemoglobin A1c goal of less than 8.0% ([facility]) Allergies Active Allergy Reactions Criticality Noted Date [...] 3 Each 11 10/17/2023 Active Dexcom G7 Life Insurance Agent Device Use to read blood glucose values with dexcom G7 sensor E 11.9 1 Each 10/17/2023 Active Isosorbide Mononitrate ER 30 MG Oral Tablet Extended Release 24 Hour (Imdur)Indication s:Atherosclerosis of [place] coronary artery of [place] heart without angina pectoris TAKE 1 TABLET [...] hemoglobin A1c goal of less than 8.0% ([facility]) Take 1 Tablet by mouth in the morning 30 minutes before a meal. 30 Tablet 5 12/30/2023 Active Pantoprazole Sodium 40 MG Oral Tablet Delayed Release (Protonix)Indicat ions:Esophageal obstruction TAKE 1 TABLET BY MOUTH DAILY. 90 Tablet 3 01/03/2024 Active Incruse Ellipta 62.5 MCG/ACT Inhalation Aerosol Powder Breath Activated (umeclidinium [place]) inhale ONE puff DAILY. 30 Each 7 [...] for Pain, Mild. 60 Tablet 05/04/2024 Active Insulin Glargine 100 UNIT/ML Subcutaneous Solution (Lantus)Indicatio ns:Type 2 diabetes mellitus with hemoglobin A1c goal of less than 8.0% (HCC) INJECT 55 UNITS UNDER THE SKIN AT BEDTIME 50 mL 1 10/24/2023 4 Discontinue d(Refill) documented as of this [...] - LAMA Self-Management plan o Other: call [facility] Exacerbation plan o Has not [...] prep) 06/14 abnormal stress test--referred for CATH @[facility]--mild nonobstructive CAD> patent stent. Cont med mgmt 08/14 BRIGITTE- mod BPH 08/14 TTE normal EF, Gr I saavedra Dys, EGD-dilated Schatzki ring 06/13 PFT--normal spirometry with low norm obstructive index. No response to dilator. Normal diffusing. Some air trapping, suggestive flow patterns for obstruction. Acute. HTN, goal below 130/80 05/02/2012 Coronary atherosclerosis of [place] coronary kelby ry 03/06/2012 Overview: 1. S/p NSTEMI--CAD, NSTEMI , PCI with a bare metal stent to the OM1 on 02/03/12 at [facility] 2. Patent OM1 stent with mild nonobstructive CAD noted elsewhere via the 06/24/14 catheterization at [facility] following abnormal nuclear stress testing History of [...] disease witho ut cerebral infarction 09/22/2018 08/11/2022 USP (current) use of insulin 08/08/2018 08/11/2022 Old [...] airways disease. 2012 PFT-low normal 08/14 [facility]-upper lobe emphysema, possible basilar fibrosis Lung density on x-ray 06/04/20132013 Overview: 06/13 density -repeat CXR 1mo Overweight (BMI 25.0-29.9) 04/03/2013 0 04/28/2017 Cough 10/24/2012 05/25/2013 Acute bronchitis, antibiotics not indicated 10/11/2012 05/25/2013 Impacted cerumen 10/11/2012 04/28/2017 Dermatitis 10/11/2012 04/28/2017 HTN, goal below 140/80 03/20/201205/02 Overview: Per HTN Protocol #27. Dyslipidemia, goal LDL below 70 02/07/2012 08/11/2022 [facility] Other*[id number] 02/03/2012 09/07/2016 History of non-ST elevation myocardial [...] encounter Miscellaneous Notes * Telephone Encounter - Princess Butts RPh - 05/04/2024 7:41 PM EDTSigned Prescriptions: Disp Refills Insulin Glargine 100 UNIT/ML Subcutaneous *50 mL 1 Sig: INJECT 55 UNITS UNDER THE SKIN AT BEDTIMEAuthorizing Provider: EDDIE HO User: ILYA BUTTS documented in this encounter Plan of Treatment Upcoming Encounters Date Type Department Care Team (Late st Contact Info) Description 06/26/2024 3:30 PM EST Office Visit Cardiology, [address] [place] [address] Malathi Santoro PA-C [address] [place] [address] 07/03/2024 2:25 PM EST Office Visit Hematology/Oncology [facility] [address] [facility] [place] [phone] Sy Dong MD [address] [facility] [place] [address] 07/17/2024 3:20 PM EST Office Visit [facility] [address] [place] [address] Eddie Ho MD [address] [place] [address] 08/27/2024 2:45 PM EST Office Visit Urology, [facility] [address] [place] [address] Valentín Sampson MD [address] [place] [address] 10/19/2024 2:00 PM EDT Office Visit [facility] [address] [place] [address] Eddie Ho MD [address] [place] [address] 03/12/2025 3:20 PM EDT Office Visit [facility] [address] [place] [address] Eddie Ho MD [address] [place] [address] Health Maintenance Due Date Last Done Comments Adult Wellness Visit 08/04/2022 08/04/2021 Colonoscopy 03/22/2023 03/22/2018, 03/02, 02/24/2016, Additional history exists COVID-19 Vaccine (3 - season) 2024 11/05/2020, 10/13/2020 Influenza Vaccine [...] this encounter Medical Devices Implanted Type Area Insulation Worker Interior Surface Device Identifier Shelf Expiration Date Model / Serial / Lot Cement Antibiotic Bone - [id number] Implanted:Qty: 2 on 06/21/2018 by Sridhar Grant MD at OR [facility] Right: Knee DESHAWN : ORTHOPAEDICS 12/29/2018 6197-9-010 / / [id number] Triathlon Asyetric X3 Patell - [id number] Implanted:Qty: 1 on 06/21/2018 by Sridhar Grant MD at OR [facility] Right: Knee DESHAWN : ORTHOPAEDICS 03/15/2023 5551-G-350 / / 1VE Component Femoral Rt Size 5 T - [id number] Implanted:Qty: 1 on 06/21/2018 by Sridhar Grant MD at OR [facility] Right: Knee DESHAWN : ORTHOPAEDICS 12/10/2022 5510-F-502 / / [id number] Knee Baseplate Mis Tib Tri 5 - [id number] Implanted:Qty: 1 on 06/21/2018 by Sridhar Grant MD at OR [facility] Right: Knee DESHAWN : ORTHOPAEDICS 01/12/2023 5520-M-500 / / [id number] Knee X3 Ins Pos Cs Sz5 9 - [id number] Implanted:Qty: 1 on 06/21/2018 by Sridhar Grant MD at OR [facility] Right: Knee DESHAWN : ORTHOPAEDICS 10/17/2022 5531-G-509 / / [id number] documented as of this encounter Visit Diagnoses Diagnosis Type 2 diabetes mellitus with hemoglobin A1c goal of less than 8.0% ([facility]) documented in this encounter Advance Directives * [...] patient or by statute hierarchy) Care Teams Slasher Sawyer Relationship Specialty Start Date End Date Eddie Ho MD [address] [place] [address] PCP - General Family Medicine 07/18/14 documented as of this encounter
--- OUTSIDE RECORDS SUMMARY | 2024-07-27 13:17 | External Medical Summary | Summary of Care ---
Author Name Unknown Organization [facility] Address [address] [place] [address] Phone [phone] Care Team Providers Care Warehouse Checker Name Role Phone Eddie Ruffin MD Primary Care Provider + Encounter Details Date Type Department Care Team (Late st Contact Info) Description 05/10/2024 Orders Only Family Practice [facility] [address] [place] [address] Eddie Ruffin MD [address] [place] [address] Allergies Active Allergy Reactions Criticality Noted Date [...] 3 Each 11 10/17/2023 Active Dexcom G7 Utility Pipe Layer Device Use to read blood glucose values with dexcom G7 sensor E 11.9 1 Each 10/17/2023 Active Isosorbide Mononitrate ER 30 MG Oral Tablet Extended Release 24 Hour (Imdur)Indications :Atherosclerosis of [place] coronary artery of [place] heart without angina pectoris TAKE 1 TABLET [...] MCG/ACT Inhalation Aerosol Powder Breath Activated (umeclidinium [place]) inhale ONE puff DAILY. 30 Each 7 [...] - LAMA Self-Management plan o Other: call [facility] Exacerbation plan o Has not required [...] prep) 06/14 abnormal stress test--referred for CATH @[facility]--mild nonobstructive CAD> patent stent. Cont med mgmt 08/14 BRIGITTE- mod BPH 08/14 TTE normal EF, Gr I saavedra Dys, EGD-dilated Schatzki ring 06/13 PFT--normal spirometry with low norm obstructive index. No response to dilator. Normal diffusing. Some air trapping, suggestive flow patterns for obstruction. Acute. HTN, goal below 130/80 05/02/2012 Coronary atherosclerosis of [place] coronary kelby ry 03/06/2012 Overview: 1. S/p NSTEMI--CAD, NSTEMI , PCI with a bare metal stent to the OM1 on 02/03/12 at [facility] 2. Patent OM1 stent with mild nonobstructive CAD noted elsewhere via the 06/24/14 catheterization at [facility] following abnormal nuclear stress testing History of [...] disease witho ut cerebral infarction 09/22/2018 08/11/2022 correction (current) use of insulin 08/08/2018 08/11/2022 Old [...] disease. 2012 PFT-low normal 08/14 [facility]-upper lobe emphysema, possible basilar fibrosis Lung density on x-ray 06/04/20132013 Overview: 06/13 density -repeat CXR 1mo Overweight (BMI 25.0-29.9) 04/03/2013 0 04/28/2017 Cough 10/24/2012 05/25/2013 Acute bronchitis, antibiotics not indicated 10/11/2012 05/25/2013 Impacted cerumen 10/11/2012 04/28/2017 Dermatitis 10/11/2012 04/28/2017 HTN, goal below 140/80 03/20/201205/02 Overview: Per HTN Protocol #27. Dyslipidemia, goal LDL below 70 02/07/2012 08/11/2022 [facility] Other*[id number] 02/03/2012 09/07/2016 History of non-ST elevation myocardial [...] 06/26/2024 3:30 PM EST Office Visit Cardiology, [facility] [address] [place] [address] Malathi Newman PA-C [address] [facility] [place] [address] 07/03/2024 2:25 PM EST Office Visit Hematology/Oncology [facility] [address] [facility] [place] [phone] Sy Dong MD [address] [facility] [place] [address] 07/17/2024 3:20 PM EST Office Visit Family Practice [facility] [address] [place] [address] Eddie Ruffin MD [address] [place] [address] 08/27/2024 2:45 PM EST Office Visit Urology, [facility] [address] [place] [address] Valentín Sampson MD [address] [place] [address] 10/19/2024 2:00 PM EDT Office Visit [facility] [address] [place] [address] Eddie Ruffin MD [address] [place] [address] 03/12/2025 3:20 PM EDT Office Visit [facility] [address] [place] [address] Eddie Ruffin MD [address] [place] [address] Health Maintenance Due Date Last Done Comments Adult Wellness Visit 08/04/2022 08/04/2021 Colonoscopy 03/22/2023 03/22/2018, 03/02, 02/24/2016, Additional history exists COVID-19 Vaccine ( season) 2024 11/05/2020, 10/13/2020 Influenza Vaccine (FLU shot) (#1) 2024 07/01/2023, 04/16/2022, 04/29/2021, Additional history exists HbA1c 10/08/2024 04/10/2024, 11/01, 06/28/2023, Additional history exists Diabetic Foot Exam 02/23/2025 02/24/2024 (D one elsewhere), 02/20/2021, 05/20/2020, Additional history exists GFR 04/10/2025 04/10/2024, 11/01, 06/28/2023, Additional history exists Albumin/Creatinine Ratio 05/01/2025 024, 06/28/2023, 04/16/2022, Additional history exists Depression Monitoring 05/01/2025 05/01/2024 O2 ASSESSMENT COMPLETED IN PAST YEAR FOR COPD 05/01/2025 05/01/2024 Diabetic Eye Exam 05/10/2025 10/27/2023, (Done elsewhere), 01/28/2023, Additional history exists DTap/Tdap Vaccines (3 - [...] this encounter Medical Devices Implanted Type Area Lift Electrician Device Identifier Shelf Expiration Date Model / Serial / Lot Cement Antibiotic Bone - [id number] Implanted:Qty: 2 on 06/21/2018 by Sridhar Grant MD at [place] [facility] Right: Knee DESHAWN : ORTHOPAEDICS 12/29/2018 6197-9-010 / / [id number] Triathlon Asyetric X3 Patell - [id number] Implanted:Qty: 1 on 06/21/2018 by Sridhar Grant MD at OR [facility] Right: Knee DESHAWN : ORTHOPAEDICS 03/15/2023 5551-G-350 / / 1VE Component Femoral Rt Size 5 T - [id number] Implanted:Qty: 1 on 06/21/2018 by Sridhar Grant MD at OR [facility] Right: Knee DESHAWN : ORTHOPAEDICS 12/10/2022 5510-F-502 / / [id number] Knee Baseplate Mis Tib Tri 5 - [id number] Implanted:Qty: 1 on 06/21/2018 by Sridhar Grant MD at OR [facility] Right: Knee DESHAWN : ORTHOPAEDICS 01/12/2023 5520-M-500 / / [id number] Knee X3 Ins Pos Cs Sz5 9 - [id number] Implanted:Qty: 1 on 06/21/2018 by Sridhar Grant MD at OR [facility] Right: Knee DESHAWN : ORTHOPAEDICS 10/17/2022 5531-G-509 / / [id number] documented as of this encounter Procedures Procedure Name Priority Date/Time Associated Diagnosis Comments DIABETIC EYE EXAM Routine 10/27/2023 documented in this encounter Results * DIABETIC EYE EXAM (10/27/2023) 10/27/2023 Javan Upton Wheelwright OD OTHER OUTSIDE LAB (SEE SCANNED REPORT) documented in this encounter Advance Directives * [...] patient or by statute hierarchy) Care Teams Warehouse Checker Relationship Specialty Start Date End Date Eddie Ruffin MD [address] [place] [address] PCP - General Family Medicine 07/18/14 documented as of this encounter
--- OUTSIDE RECORDS SUMMARY | 2024-07-27 13:17 | External Medical Summary ---
Author Name Unknown Address Unknown Organization [id number]:[facility] [place] [address] [facility] [address] Laboratory Report Ordering Provider Test Date Status VIC MEANS 05/01/2024 15:25:32 Final Drugs that require complianc e testing:

Opioids:
Hydrocodone: Quantity unknown Date/Time of last Dose within the last week

Benzodiazepines
Alprazolam: Quantity unknown Date/Time of last Dose unknown

Cutoff Concentrations:
Drug Level
Alpha- Hydroxyalprazolam 10 ng/mL
7-Aminoclonazepam 20 ng/mL
Nordiazepam 20 ng/mL
Oxazepam 20 ng/mL
Temazepam 20 ng/mL
Lorazepam 10 ng/mL

This test was developed and its performance characteristics determined by [facility]. It has not been cleared or approved by the [place] Food and Drug Administration. Observation Date Value Abnormality Reference (Units) Status METHODOLOGY 05/01/2024 15:25:32 LC-MS/MS Final Alpha hydroxyalprazolam cutoff [Mass/volume] in Urine for Confirmatory method 05/01/2024 15:25:32 Negative Negative Final 7-Aminoclonazepam [Mass/volume] in Urine by Confirmatory method 05/01/2024 15:25:32 Negative Negative Final Nordiazepam cutoff [Mass/volume] in Urine for Confirmatory method 05/01/2024 15:25:32 Negative Negative Final Oxazepam cutoff [Mass/volume] in Urine for Confirmatory method 05/01/2024 15:25:32 Negative Negative Final Temazepam cutoff [Mass/volume] in Urine for Confirmatory method 05/01/2024 15:25:32 Negative Negative Final LORazepam cutoff [Mass/volume] in Urine for Confirmatory method 05/01/2024 15:25:32 >1000 Above high normal Negative (ng/mL) Final Performing Location [facility] [place] [facility] [address] [facility] [address]
--- OUTSIDE RECORDS SUMMARY | 2024-07-27 13:17 | External Medical Summary | Summary of Care ---
Author Name Unknown Organization [facility] Address [address] [place] [address] Phone [phone] Care Team Providers Care Recruiting Coordinator Name Role Phone Eddie Ho MD Primary Care Provider + Reason for Visit * Reason Comments Medication Refill Encounter Details Date Type Department Care Team (Late st Contact Info) Description 05/02/2024 Refill Family Practice [facility] [address] [place] [address] Eddie Ho MD [address] [place] [address] MEDICATION USE AGREEMENT; Arthritis of right knee [...] 3 Each 11 10/17/2023 Active Dexcom G7 Expenditure Requisition Clerk Device Use to read blood glucose values with dexcom G7 sensor E 11.9 1 Each 10/17/2023 Active Insulin Glargine 100 UNIT/ML Subcutaneous Solution (Lantus)Indicatio ns:Type 2 diabetes mellitus with hemoglobin A1c goal of less than 8.0% ([facility]) INJECT 55 UNITS UNDER THE SKIN AT BEDTIME 50 mL 1 10/24/2023 Active Isosorbide Mononitrate ER 30 MG Oral Tablet Extended Release 24 Hour (Imdur)Indication s:Atherosclerosis of manzanita coronary artery of manzanita heart without angina pectoris TAKE 1 TABLET [...] goal of less than 8.0% ([facility]) Take 1 Tablet by mouth in the morning 30 minutes before a meal. 30 Tablet 5 12/30/2023 Active Pantoprazole Sodium 40 MG Oral Tablet Delayed Release (Protonix)Indicat ions:Esophageal obstruction TAKE 1 TABLET BY MOUTH DAILY. 90 Tablet 3 01/03/2024 Active Incruse Ellipta 62.5 MCG/ACT Inhalation Aerosol Powder Breath Activated (umeclidinium [place]) inhale ONE puff DAILY. 30 Each 7 [...] - LAMA Self-Management plan o Other: call [facility] Exacerbation plan o Has not required [...] prep) 06/14 abnormal stress test--[place]mild nonobstructive [place]> patent stent. Cont med mgmt 08/14 BRIGITTE- mod BPH 08/14 TTE normal EF, Gr I saavedra Dys, EGD-dilated Schatzki ring 06/13 PFT--normal spirometry with low norm obstructive index. No response to dilator. Normal diffusing. Some air trapping, suggestive flow patterns for obstruction. Acute. HTN, goal below 130/80 05/02/2012 Coronary atherosclerosis of manzanita coronary kelby ry 03/06/2012 Overview: 1. S/p NSTEMI--CAD, NSTEMI , PCI with a bare metal stent to the OM1 on 02/03/12 at [facility] 2. Patent OM1 stent with mild nonobstructive CAD noted elsewhere via the 06/24/14 catheterization [place] [facility] [place] abnormal nuclear stress testing [...] disease witho ut cerebral infarction 09/22/2018 08/11/2022 retirement (current) use of insulin 08/08/2018 08/11/2022 Old [...] airways disease. 2012 PFT-low normal 08/14 CT [facility]-upper lobe emphysema, possible basilar fibrosis Lung density on x-ray 06/04/20132013 Overview: 06/13 density -repeat CXR 1mo Overweight (BMI 25.0-29.9) 04/03/2013 0 04/28/2017 Cough 10/24/2012 05/25/2013 Acute bronchitis, antibiotics not indicated 10/11/2012 05/25/2013 Impacted cerumen 10/11/2012 04/28/2017 Dermatitis 10/11/2012 04/28/2017 HTN, goal below 140/80 03/20/201205/02 Overview: Per HTN Protocol #27. Dyslipidemia, goal LDL below 70 02/07/2012 08/11/2022 [facility] Other*[id number] 02/03/2012 09/07/2016 History of non-ST elevation myocardial [...] HO * Telephone Encounter - Chelsea Miller [facility] - 05/04/2024 8:49 AM EDTPending Prescriptions: Disp Refills HYDROcodone-Acetaminophen 5-325 MG Oral Ta*60 Tab*0 Sig: Take 1 Tablet by mouth every 6 hours as needed for Mild pain * Telephone Encounter - Chelsea Miller [facility] - 05/04/2024 8:49 AM EDT I have reviewed the patients controlled substance dispensing history in the Prescription Drug Monitoring Program in compliance with the [facility] regulations before prescribing a controlled substance. PDMP checked on 05/04/2024. Pending Prescriptions: Disp Refills HYDROcodone-Acetaminophen 5-325 MG Oral T*60 Tab*0 Sig: Take 1 Tablet by mouth every 6 hours as needed for Mild pain Last Visit: 05/01/2024 (in office), 04/14/2020 (telemedicine) Next Visit: 07/17/2024 Date medication was last filled: 04/03/24 Date medication is due for refill: 04/17/24 Pharmacy: [facility] Is this request for a controlled [...] Clinical Pharmacist [facility] ([facility]) [phone] 05/04/2024, 8:49 AM documented in this encounter Plan of Treatment Upcoming Encounters Date Type Department Care Team (Late st Contact Info) Description 06/26/2024 3:30 PM EST Office Visit Cardiology, [facility] [address] [address] Malathi Newman PA-C [address] [place] [address] 07/03/2024 2:25 PM EST Office Visit Hematology/Oncology [facility] [address] [facility] [place] [phone] Sy [facility] [address] 07/17/2024 3:20 PM EST Office Visit Family Practice [facility] [address] [place] [address] Eddie Ho MD [address] [address] 08/27/2024 2:45 PM EST Office Visit Urology, [facility] [address] [place] [address] Valentín Sampson MD [address] [place] [address] 10/19/2024 2:00 PM EDT Office Visit [facility] [address] [place] [address] Eddie Ho MD [address] [place] [address] 03/12/2025 3:20 PM EDT Office Visit [facility] [address] [place] [address] Eddie oH MD [address] [place] [address] Health Maintenance Due Date Last Done Comments [...] this encounter Medical Devices Implanted Type Area Solar Installation Technician Device Identifier Shelf Expiration Date Model / Serial / Lot Cement Antibiotic Bone - [id number] Implanted:Qty: 2 on 06/21/2018 by Sridhar Grant MD [place] [facility] [place]: Knee DESHAWN : ORTHOPAEDICS 12/29/2018 6197-9-010 / / [id number] Triathlon Asyetric X3 Patell - [id number] Implanted:Qty: 1 on 06/21/2018 by Sridhar Grant MD [place] [facility] [place]: Knee DESHAWN : ORTHOPAEDICS 03/15/2023 5551-G-350 / / [id number] Component Femoral Rt Size 5 T - [id number] Implanted:Qty: 1 on 06/21/2018 by Sridhar Grant MD [place] [facility] [place]: Knee DESHAWN : ORTHOPAEDICS 12/10/2022 5510-F-502 / / [id number] Knee Baseplate Mis Tib Tri 5 - [id number] Implanted:Qty: 1 on 06/21/2018 by Sridhar Grant MD [place] [facility] [place]: Knee DESHAWN : ORTHOPAEDICS 01/12/2023 5520-M-500 / / [id number] Knee X3 Ins Pos Cs Sz5 9 - [id number] Implanted:Qty: 1 on 06/21/2018 by Sridhar Grant MD [place] [facility] [place]: Knee DESHAWN : ORTHOPAEDICS 10/17/2022 5531-G-509 / / [id number] documented as of this encounter Visit Diagnoses [...] patient or by statute hierarchy) Care Teams Recruiting Coordinator Relationship Specialty Start Date End Date Eddie Ho MD [address] [place] [address] PCP - General Family Medicine 07/18/14 documented as of this encounter
--- OUTSIDE RECORDS SUMMARY | 2024-07-27 13:18 | External Medical Summary | Summary of Care ---
Author Name Unknown Organization [facility] Address [address] [place] [address] Phone [phone] Care Team Providers Care Sheet Metal Assembler Name Role Phone Eddie Ruffin MD Primary Care Provider + Reason for Visit * Reason Comments Infusion Monoferric * Episode Based Medications (Routine) - Authorized Specialty Diagnoses / Procedures Referred By Contac t Referred To Contact Diagnoses Iron deficiency anemia, unspecified iron deficiency anemia type Procedures MN INJ. FE DERISOMALTOSE 10 MG Sy Dong MD [address] [place] [id number] Anc Hem/Onc [address] [phone] Referral ID Status Reason Start Date Expiration Date V isits Requested Visits Authorized [id number] Authorized 04/18/2024 04/18/[phone] Encounter Details Date Type Department Care Team (Latest Contact Info) Description 04/27/2024 12:45 PM EDT Hem/Onc Treatment Hematology/Oncology Treatment, [address] [phone] Iron deficiency anemia, unspecified iron deficiency anemia type* Allergies Active Allergy Reactions Criticality Noted Date Comments Formoterol High 02/16/2022 Other reaction(s): RASH Lisinopril Cough Low 10/24/2012 Penicillins Other (Please comment) 08/15/2013 Family hx allergic reaction Simvastatin High 02/16/2022 Other reaction(s): RASH documented as of this encounter (statuses as of 04/27/2024) Medications Medication Sig Dispensed Refills Start Date [...] 3 Each 11 10/17/2023 Active Dexcom G7 Industrial Seamstress Device Use to read blood glucose values with dexcom G7 sensor E 11.9 1 Each 10/17/2023 Active Insulin Glargine 100 UNIT/ML Subcutaneous Solution (Lantus)Indication s:Type 2 diabetes mellitus with hemoglobin A1c goal of less than 8.0% ([facility]) INJECT 55 UNITS UNDER THE SKIN AT BEDTIME 50 mL 1 10/24/2023 Active Isosorbide Mononitrate ER 30 MG Oral Tablet Extended Release 24 Hour (Imdur)Indications :Atherosclerosis of mary[place] igloo coronary artery of mary[place] ig[place] heart without angina pectoris TAKE 1 TABLET [...] MCG/ACT Inhalation Aerosol Powder Breath Activated (umeclidinium [place]) inhale ONE puff DAILY. 30 Each 7 [...] to knees). 300 g 5 02/13/2024 Active HYDROcodone-Acetam inophen 5-325 MG Oral TabletIndications: MEDICATION USE AGREEMENT,Arthriti s of right knee Take 1 Tablet by mouth every 6 hours as needed for Mild pain 60 Tablet 04/03/2024 Active Finasteride 5 MG Oral Tablet (Proscar) Take 1 Tablet by mouth in the morning. 90 Tablet 3 04/10/2024 Active Carvedilol 3.125 MG Oral Tablet (Coreg)Indications [...] MEALS. 180 Tablet 3 04/16/2024 04/16/2025 Active documented as of this encounter (statuses as of 04/27/2024) Active Problems Problem Noted Date Diagnosed Date [...] - LAMA Self-Management plan o Other: call [facility] Exacerbation plan o Has not required in home advanced interventions Occlusion and stenosis of bilateral carotid kelby chuyita 11/07/2020 Overview: 6 <50% b/l. Gastro-esophageal reflux disease without esophag [...] prep) 06/14 abnormal stress test--[place] [place]mild nonobstructive CAD> patent stent. Cont med mgmt 08/14 BRIGITTE- mod BPH 08/14 TTE normal EF, Gr I saavedra Dys, EGD-dilated Schatzki ring 06/13 PFT--normal spirometry with low norm obstructive index. No response to dilator. Normal diffusing. Some air trapping, suggestive flow patterns for obstruction. Acute. HTN, goal below 130/80 05/02/2012 Coronary atherosclerosis of mary[place] ig[place] coronary kelby ry 03/06/2012 Overview: 1. S/p NSTEMI--CAD, NSTEMI , PCI with a bare metal stent to the OM1 on 02/03/12 at [facility] 2. 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 documented as of this encounter (statuses as of 04/27/2024) Resolved Problems Problem Noted Date Diagnosed Date [...] disease witho ut cerebral infarction 09/22/2018 08/11/2022 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 insulin 08/08/2018 08/11/2022 Old AK (myocardial infarction) 07/03/2018 08/08/2018 Cataract, diabetic 07/03/2018 [...] below 70 02/07/2012 08/11/2022 [facility] Other*[id number] 02/03/2012 09/07/2016 History of non-ST elevation myocardial [...] as of this encounter (statuses as of 04/27/2024) Immunizations Name Administration Dates Next Due COVID-19 mRNA, LNP-s, No Pre serve, 2-Dose Series (Pfizer) 11/05/2020,10/13/2020 H1N1 2009 Influenza, IM 09/18/2009 Pneumococcal Conjugate Vacc, 13 Valent (Prevnar) 02/11/2015 Pneumococcal Polysaccharide PPV23 (Pneumovax) 04/09/2016,08/01/2015,03/12/2009 Season Influenza, Quad, PF, Adjuvanted, 65+ Yrs, IM (FLUAD) 05/06/2020 Seasonal Influenza, PF, 6 M & above, IM , (FluLaval or Fluzone) 04/07/2018,04/28/2017 Seasonal Influenza, Quadriva lent Hd (Fluzone Hd) 07/01/2023,04/16/2022,04/29/2021 Seasonal Influenza, Quadriva lent, No Preserve, IM 04/09/2016,05/14/2015 Seasonal Influenza, Trivalen t, (IIV3), with Preserv, (Fluzone) 04/04/2014,04/20/2013,04/25/2012,05/04,05/14/2010,05/02/2009,05/03/2008 Seasonal Influenza, Trivalen t, Adjuvanted, 65+ YRS, [...] Care Team (Late st Contact Info) Description 05/01/2024 2:40 PM EDT Office Visit [facility] [address] [address] Eddie Ruffin MD [address] [place] [address] 06/26/2024 3:30 PM EST Office Visit Cardiology, [facility] [address] [facility] [place] [address] Malathi Newman PA-C [address] [facility] [place] [address] 07/03/2024 2:25 PM EST Office Visit Hematology/Oncology [facility] [address] [facility] [place] [phone] Sy Dong MD [address] [facility] [place] [address] 07/17/2024 3:20 PM EST Office Visit Family Practice [facility] [address] [facility] [place] [address] Eddie Ruffin MD [address] [facility] [place] [address] 08/27/2024 2:45 PM EST Office Visit Urology, [facility] [address] [facility] [place] [address] Valentín Sampson MD [address] [place] [phone] 10/19/2024 2:00 PM EDT Office Visit Family Practice [facility] [address] [facility] [place] [address] Eddie Ruffin MD [address] [facility] [place] [address] Health Maintenance Due Date Last Done Comments Zoster Vaccines (3 of 3) 04/17/2021 02/20/2021, 04/02 Diabetic Foot Exam 02/20/2022 02/20/2021, 1 , 09/22/2018, Additional history exists Adult Wellness Visit 08/04/2022 08/04/2021 Depression Monitoring 08/04/2022 08/04/2021 Colonoscopy 03/22/2023 03/22/2018, 03/02, 02/24/2016, Additional history exists Diabetic Eye Exam 01/29/2024 01/28/2023, , 06/22/2021, Additional history exists COVID-19 Vaccine ( season) 2024 11/05/2020, 10/13/2020 Influenza Vaccine (FLU shot) (#1) 2024 07/01/2023, 04/16/2022, 04/29/2021, Additional history exists Albumin/Creatinine Ratio 06/28/2024 023, 04/16/2022, 07/02/2021, Additional history exists HbA1c 10/08/2024 04/10/2024, 04/3 , 06/28/2023, Additional history exists GFR 04/10/2025 04/10/2024, 043 , 06/28/2023, Additional history exists O2 ASSESSMENT COMPLETED IN PAST YEAR FOR COPD 04/18/2025 04/18/2024 DTap/Tdap Vaccines (3 - Td or Tdap) 08/27/2031 08/27/2021, 07/05/2011, 08/01/2005, Additional history exists Pneumococcal Vaccine: 65+ Years Completed 04/09/2016, 08/01/2015, 02/11/2015, Additional history exists RETIRED - COLONOSCOPY-EVERY 5 YRS AGES 18-100 Discontinued 03/22/2018, 03/22/2018, 02/24/2016, Additional history exists Alpha-1 Antitrypsin Completed 04/16/2022 HPV (Gardasil) Vaccine Aged Out No lo nger eligible based on patient's age to complete this topic Hepatitis B Vaccine Aged Out No longe r eligible based on patient's age to complete this topic MENINGOCOCCAL (MENACTRA/MENVEO) Aged Out No longer eligible based on patient's age to complete this topic documented as of this encounter Medical Devices Implanted Type Area Guest Service Agent Device Identifier Shelf Expiration Date Model / Serial / Lot Cement Antibiotic Bone - [id number] Implanted:Qty: 2 on 06/21/2018 by Sridhar Grant MD at [place] [facility] [place]: Knee DESHAWN : ORTHOPAEDICS 12/29/2018 6197-9-010 / / [id number] Triathlon Asyetric X3 Patell - [id number] Implanted:Qty: 1 on 06/21/2018 by Sridhar Grant MD at [place] [facility] Right: Knee DESHAWN : ORTHOPAEDICS 03/15/2023 5551-G-350 / / 1VE Component Femoral Rt Size 5 T - [id number] Implanted:Qty: 1 on 06/21/2018 by Sridhar Grant MD at [place] [facility] Right: Knee DESHAWN : ORTHOPAEDICS 12/10/2022 5510-F-502 / / [id number] Knee Baseplate Mis Tib Tri 5 - [id number] Implanted:Qty: 1 on 06/21/2018 by Sridhar Grant MD at [place] [facility] Right: Knee DESHAWN : ORTHOPAEDICS 01/12/2023 5520-M-500 / / [id number] Knee X3 Ins Pos Cs Sz5 9 - [id number] Implanted:Qty: 1 on 06/21/2018 by Sridhar Grant MD at [place] [facility] Right: Knee DESHAWN : ORTHOPAEDICS 10/17/2022 5531-G-509 / / [id number] documented as of this encounter Visit Diagnoses Diagnosis Iron deficiency anemia, unspecified iron deficiency anemia type- Primary documented in this encounter Administered Medications Active Administered Medications - up to 3 most recent administrations Medication Order MAR Action Action Date Dose Rate Site diphenhydrAMINE (Benadryl) inj 50 mg 50 mg, IV Push, ONCE PRN Other, Hypersensitivity Reaction, Starting on Tue04/27/24 at 1300, Until 04/28/24 at 1259, For 24 hours EPINEPHrine 1 MG/ML inj 0.3 mg 0.3 mg, Intramuscular, ONCE PRN Other, Hypersensitivity Reaction or Anaphylaxis, Starting on Tue04/27/24 at 1300, Until 04/28/24 at 1259, For 24 hours hEParin 100 UNIT/ML Lock Flush inj 500 Units 500 Units (5 mL), IV Lock, PRN Other, IV Flush, Starting on Tue04/27/24 at 1300, Until 04/28/24 at 1259, For 24 hours, Do not flush if lock, PICC, or central line not in place; IV infusing or unable to flush. Hydrocortisone Sod Suc (PF) (Solu-Cortef) inj 100 mg 100 mg, IV Push, ONCE PRN Other, Hypersensitivity Reaction, Starting on Tue04/27/24 at 1300, Until 04/28/24 at 1259, For 24 hours NSS infusion Intravenous, at 50 mL/hr, PRN, Starting on Tue04/27/24 at 1415, Until Discontinued, Maintenance line Start Infusion 04/27/2024 1:04 PM EDT 50 mL/hr oxygen GAS Inhalation, OXYGEN, First dose on Tue04/27/24 at 1600, Until Discontinued, Device/Managed by: Low Flow Device, Goal SPO2 (%): 91-95, Starting Device: Nasal Cannula, Initial Flow Rate (LPM): 2, Lowest Support: Nasal Cannula: Flow 0-6 LPM. Titrate up/down by 1 LPM., Higher Support: Non-Rebreather (NRB) Mask: Minimum of 10 LPM. Titrate to maintain bag inflation., Titration Interval: Q2 minutes and as needed., Notify Provider: For sudden DECREASE in resting SPO2 to less than 85% and when escalating delivery device., Wean patient off Oxygen when the oxygen saturation is greater than or equal to 93% sodium chloride 0.9 % flush central line 10 mL 10 mL, IV Push, PRN Other, IV Flush, Starting on Tue04/27/24 at 1300, Until 04/28/24 at 1259, For 24 hours, Do not flush if lock, PICC, or central line not in place; IV infusing or unable to flush. Inactive Administered Medications - up to 3 [...] 1:10 PM EDT 1,000 mg 530 mL/hr documented in this encounter Advance Directives [...] patient or by statute hierarchy) Care Teams Sheet Metal Assembler Relationship Specialty Start Date End Date Eddie Ruffin MD [address] [place] [address] PCP - General Family Medicine 07/18/14 documented as of this encounter
--- OUTSIDE RECORDS SUMMARY | 2024-07-27 13:18 | External Medical Summary | Summary of Care ---
Author Name Unknown Organization [facility] Address [address] [place] [address] Phone [phone] Care Team Providers Care Steward/Stewardess Room Name Role Phone Eddie Ruffin MD Primary Care Provider + Reason for Referral * Evaluate & Treat - Unlimited Visits (Within 10 days (routine)) - Authorized Specialty Diagnoses / Procedures Referred By Contanita t Referred To Contact Hematology/Oncology / Hematology Oncology Diagnoses Anemia, unspecified type Kana Somers PA-C [address] [place] [address] Referral ID Status Reason Start Date Expiration Date Visits Requested Visits Authorized [id number] Authorized Specialty Services Required 04/12/2024 999 999 Question Answer Referral Priority Within 10 days (routine) Where should this appointment be scheduled? ising Reason for Referral Anemia Comments Unable to tolerate oral Fe supplementation, refer for IV infusion Reason for Visit * Reason Onset Date Comments Test Results 04/12/2024 Encounter Details Date Type Department Care Team (Late st Contact Info) Description 04/12/2024 Telephone Cardiology, [facility] [address] [place] [address] Kana Somers PA-C [address] [place] [address] Test Results Allergies Active Allergy Reactions Criticality Noted Date Comments Formoterol High 02/16/2022 Other reaction(s): RASH Lisinopril Cough Low 10/24/2012 Penicillins Other (Please comment) 08/15/2013 Family hx allergic reaction Simvastatin High 02/16/2022 Other reaction(s): RASH documented as of this encounter (statuses as of 04/26/2024) Medications Medication Sig Dispensed Refills Start Date [...] 3 Each 11 10/17/2023 Active Dexcom G7 Bus Info Consultant Device Use to read blood glucose values [...] Extended Release 24 Hour (Imdur)Indication s:Atherosclerosis of [place] coronary artery of [place] heart without angina pectoris TAKE 1 TABLET BY MOUTH IN THE MORNING 30 Tablet 11 12/02/2023 Active Vitron-C 65-125 MG Oral Tablet (Iron-Vitamin [...] MCG/ACT Inhalation Aerosol Powder Breath Activated (umeclidinium [place]) inhale ONE puff DAILY. 30 Each 7 [...] to knees). 300 g 5 02/13/2024 Active HYDROcodone-Aceta minophen 5-325 MG Oral TabletIndications :MEDICATION USE AGREEMENT,Arthrit is of right knee Take 1 Tablet by mouth every 6 hours as needed for Mild pain 60 Tablet 04/03/2024 Active Finasteride 5 MG Oral Tablet (Proscar) Take 1 Tablet by mouth in the morning. 90 Tablet 3 04/10/2024 Active Carvedilol 3.125 MG Oral Tablet (Coreg)Indication s:Old myocardial infarction Take 1 Tablet by mouth in the morning and 1 Tablet before bedtime with food. 60 Tablet 11 04/11/2024 Active metFORMIN HCl 1000 MG Oral Tablet (Glucophage)Indic ations:DM type 2 causing neurological disease (HCC) TAKE 1 TABLET BY MOUTH TWICE DAILY WITH MORNING AND EVENING MEALS. 180 Tablet 3 04/19/2023 4 Discontinue d(Refill) Sertraline HCl 100 MG Oral Tablet (Zoloft)Indicatio ns:ANKITA (generalized anxiety disorder),Dysthym ia Take 1.5 Tablets by mouth in the morning. 45 Tablet 5 07/01/2023 4 Discontinue d(Refill) documented as of this encounter (statuses as of 04/26/2024) Active Problems Problem Noted Date Diagnosed Date [...] - LAMA Self-Management plan o Other: call [facility] Exacerbation plan o Has not required in [...] prep) 06/14 abnormal stress test--referred for [facility]ATH @[facility]--mild nonobstructive CAD> patent stent. Cont med mgmt 08/14 BRIGITTE- mod BPH 08/14 TTE normal EF, Gr I saavedra Dys, EGD-dilated Schatzki ring 06/13 PFT--normal spirometry with low norm obstructive index. No response to dilator. Normal diffusing. Some air trapping, suggestive flow patterns for obstruction. Acute. HTN, goal below 130/80 05/02/2012 Coronary atherosclerosis of [place] tribe coronary kelby ry 03/06/2012 Overview: 1. S/p NSTEMI--CAD, NSTEMI , PCI with a bare metal stent to the OM1 on 02/03/12 at [facility] 2. Patent OM1 stent with mild nonobstructive CAD noted elsewhere via the 06/24/14 catheterization at [facility] following abnormal nuclear stress [...] as of this encounter (statuses as of 04/26/2024) Resolved Problems Problem Noted Date Diagnosed Date [...] airways disease. 2012 PFT-low normal 08/14 [facility]-upper lobe emphysema, possible basilar fibrosis Lung density on x-ray 06/04/20132013 Overview: 06/13 density -repeat CXR 1mo Overweight (BMI 25.0-29.9) 04/03/2013 0 04/28/2017 Cough 10/24/2012 05/25/2013 Acute bronchitis, antibiotics not indicated 10/11/2012 05/25/2013 Impacted cerumen 10/11/2012 04/28/2017 Dermatitis 10/11/2012 04/28/2017 HTN, goal below 140/80 03/20/201205/02 Overview: Per HTN Protocol #27. Dyslipidemia, goal LDL below 70 02/07/2012 08/11/2022 [facility] Other*[id number] 02/03/2012 09/07/2016 History of non-ST elevation myocardial [...] as of this encounter (statuses as of 04/26/2024) Immunizations Name Administration Dates Next Due COVID-19 mRNA, LNP-s, No Pre serve, 2-Dose Series (1Rebel) 11/05/2020,10/13/2020 H1N1 2009 Influenza, IM 09/18/2009 Pneumococcal [...] encounter Miscellaneous Notes * Telephone Encounter - Blanca Espinoza LPN - 04/12/2024 1:10 PM EDT Called and spoke to pt, pt could not hear, asked if I could relay information to . Pt is unable to tolerate oral Fe supplementation Pt/ agreeable to referral and IV infusion Orders placed * Telephone Encounter - Blanca Espinoza LPN - 04/12/2024 1:03 PM EDT ----- Message from Kana Somers sent at 04/11/2024 8:13 AM EDT ----- Mild decline in hemoglobin. Laboratory work in October 2023 with iron deficiency. Recommendations: If not currently taking Vitron-C please resume, daily If unable to tolerate oral iron refer to Hematology, RE IV iron Repeat CBC in 1 month. documented in this encounter Plan of Treatment Upcoming Encounters Date Type Department Care Team (Late st Contact Info) Description 04/27/2024 12:45 PM EDT Hem/Onc Treatment Hematology/Oncology Treatment, [place] [address] [place] [phone] 05/01/2024 2:40 PM EDT Office Visit Family [facility] 132 [facility] [place] [address] Eddie Ruffin MD 132 [facility] [place] [address] 06/26/2024 3:30 PM EST Office Visit Cardiology, [facility] [address] [facility] [place] [address] Malathi Newman PA-C 132 [facility] [place] [address] 07/03/2024 2:25 PM EST Office Visit Hematology/Oncology [facility] 200 [facility] [place] [address] Sy Dong MD 200 [facility] [place] [address] 07/17/2024 3:20 PM EST Office Visit [facility] [address] [facility] [place] [address] Eddie Ruffin MD 132 [facility] [place] [address] 08/27/2024 2:45 PM EST Office Visit Urology, [facility] [address] [facility] [place] [address] Valentín Sampson MD [address] [place] [address] 10/19/2024 2:00 PM EDT Office Visit [facility] [address] [facility] [place] [address] Eddie Ruffin MD 132 [facility] [place] [address] Scheduled Orders Name Type Priority Associated Diagnoses Orde r Schedule CBC Lab Routine Anemia, unspecified type Expected: 05/12/2024 (Approximate), Expires: 04/12/2025 Scheduled Referrals Name Type Priority Associated Diagnoses Orde r Schedule HEMATOLOGY/ONCOLOGY REFERRAL OP Referral Within 10 days (routine) Anemia, unspecified type Ordered: 04/12/2024 Health Maintenance Due Date Last Done Comments [...] 04/16/2022, 04/29/2021, Additional history exists Albumin/Creatinine Ratio 06/28/202406/28/2 023, 04/16/2022, 07/02/2021, Additional history exists HbA1c [...] this encounter Medical Devices Implanted Type Area Building Components Designer Device Identifier Shelf Expiration Date Model / Serial / Lot Cement Antibiotic Bone - [id number] Implanted:Qty: 2 on 06/21/2018 by Sridhar Grant MD at OR [facility] Right: Knee DESHAWN : ORTHOPAEDICS 12/29/2018 6197-9-010 / / [id number] Triathlon Asyetric X3 Patell - [id number] Implanted:Qty: 1 on 06/21/2018 by Sridhar Grant MD at OR [facility] Right: Knee DESHAWN : ORTHOPAEDICS 03/15/2023 5551-G-350 / / [id number] Component Femoral Rt Size 5 T - [id number] Implanted:Qty: 1 on 06/21/2018 by Sridhar Grant MD at OR [facility] Right: Knee DESHAWN : ORTHOPAEDICS 12/10/2022 5510-F-502 / / [id number] Knee Baseplate Mis Tib Tri 5 - [id number] Implanted:Qty: 1 on 06/21/2018 by Sridhar Grant MD at OR [facility] Right: Knee DESHAWN : ORTHOPAEDICS 01/12/2023 5520-M-500 / / [id number] Knee X3 Ins Pos Cs Sz5 9 - [id number] Implanted:Qty: 1 on 06/21/2018 by Sridhar Grant MD at OR [facility] Right: Knee DESHAWN : ORTHOPAEDICS 10/17/2022 5531-G-509 / / [id number] documented as of this encounter Visit Diagnoses Diagnosis Anemia, unspecified type- Primary documented in this encounter Advance Directives * [...] patient or by statute hierarchy) Care Teams Steward/Stewardess Room Relationship Specialty Start Date End Date Eddie Ruffin MD [address] [place] [address] PCP - General Family Medicine 07/18/14 documented as of this encounter
--- OUTSIDE RECORDS SUMMARY | 2024-07-27 13:18 | External Medical Summary | Summary of Care ---
Author Name Unknown Organization [facility] Address [address] [place] [address] Phone [phone] Care Team Providers Care Latex Ribbon Machine Operator Name Role Phone Eddie Ruffin MD Primary Care Provider + Reason for Visit * Reason Onset Date Comments Medication Pre-auth 04/18/2024 Monoferric Encounter Details Date Type Department Care Team (Late st Contact Info) Description 04/18/2024 Telephone Hematology/Oncology Treatment, [place] [address] [place] [address] Sy Dong MD [address] [place] [address] Medication Pre-auth (Monoferric) Allergies Active Allergy Reactions Criticality Noted Date Comments Formoterol High 02/16/2022 Other reaction(s): RASH Lisinopril Cough Low 10/24/2012 Penicillins Other (Please comment) 08/15/2013 Family hx allergic reaction Simvastatin High 02/16/2022 Other reaction(s): RASH documented as of this encounter (statuses as of 04/24/2024) Medications Medication Sig Dispensed Refills Start Date [...] Base) MCG/ACT Inhalation Aerosol SolutionIndication s:COPD exacerbation ([facility]) Inhale 2 Puffs by mouth every 6 [...] 3 Each 11 10/17/2023 Active Dexcom G7 Community Relations Coordinator Device Use to read blood glucose values with dexcom G7 sensor E 11.9 1 Each 10/17/2023 Active Insulin Glargine 100 UNIT/ML Subcutaneous Solution (Lantus)Indication s:Type 2 diabetes mellitus with hemoglobin A1c goal of less than 8.0% ([facility]) INJECT 55 UNITS UNDER THE SKIN AT BEDTIME 50 mL 1 10/24/2023 Active Isosorbide Mononitrate ER 30 MG Oral Tablet Extended Release 24 Hour (Imdur)Indications :Atherosclerosis of [place] coronary artery of [place] heart without angina pectoris TAKE 1 TABLET [...] hemoglobin A1c goal of less than 8.0% ([facility]) Take 1 Tablet by mouth in the morning 30 minutes before a meal. 30 Tablet 5 12/30/2023 Active Pantoprazole Sodium 40 MG Oral Tablet Delayed Release (Protonix)Indicati ons:Esophageal obstruction TAKE 1 TABLET BY MOUTH DAILY. 90 Tablet 3 01/03/2024 Active Incruse Ellipta 62.5 MCG/ACT Inhalation Aerosol Powder Breath Activated (umeclidinium [place]) inhale ONE puff DAILY. 30 Each 7 [...] as of this encounter (statuses as of 04/24/2024) Active Problems Problem Noted Date Diagnosed Date [...] - LAMA Self-Management plan o Other: call [facility] Exacerbation plan o Has not [...] prep) 06/14 abnormal stress test[place] [place]mild nonobstructive [place]> patent stent. Cont med mgmt 08/14 BRIGITTE- mod BPH 08/14 TTE normal EF, Gr I saavedra Dys, EGD-dilated Schatzki ring 06/13 PFT--normal spirometry with low norm obstructive index. No response to dilator. Normal diffusing. Some air trapping, suggestive flow patterns for obstruction. Acute. 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 S/p NSTEMI--CAD, NSTEMI , PCI with a bare metal stent to the OM1 on 02/03/12 at [facility] 2. 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 2012 PFT-low normal 08/14 [facility]-upper lobe emphysema, possible basilar fibrosis Lung density on x-ray 06/04/20132013 Overview: 06/13 density -repeat CXR 1mo Overweight (BMI 25.0-29.9) 04/03/2013 0 04/28/2017 Cough 10/24/2012 05/25/2013 Acute bronchitis, antibiotics not indicated 10/11/2012 05/25/2013 Impacted cerumen 10/11/2012 04/28/2017 Dermatitis 10/11/2012 04/28/2017 HTN, goal below 140/80 03/20/201205/02 Overview: Per HTN Protocol #27. Dyslipidemia, goal LDL below 70 02/07/2012 08/11/2022 [facility] Other*[id number] 02/03/2012 09/07/2016 History of non-ST elevation myocardial [...] as of this encounter (statuses as of 04/24/2024) Immunizations Name Administration Dates Next Due COVID-19 [...] encounter Miscellaneous Notes * Telephone Encounter - Hua Jasmine OSA - 04/24/2024 9:22 AM EDT Patient scheduled and aware * Telephone Encounter - Patti Kumar RN - 04/24/2024 8:49 AM EDT PFC reviewed. Scheduling: please call patient to schedule 2 hour appt "monoferric" (Letitia). Thanks! * Telephone Encounter - Patti Kumar RN - 04/19/2024 10:41 AM EDT Referral entered, sent to [facility]. * Telephone Encounter - Charu Mosley LPN - 04/18/2024 3:32 PM EDT Order received for Monoferric Fowler plan built and routed to provider Awaiting prior authorization before scheduling patient. documented in this encounter Plan of Treatment Upcoming Encounters Date Type Department Care Team (Late st Contact Info) Description 04/27/2024 12:45 PM EDT Hem/Onc Treatment Hematology/Oncology Treatment, [place] [address] [place] [address] 05/01/2024 2:40 PM EDT Office Visit Family Practice [facility] [address] [place] [address] Eddie Ruffin MD [address] [place] [address] 06/26/2024 3:30 PM EST Office Visit Cardiology, [facility] [address] [place] [address] Malathi Newman PA-C [address] [place] [address] 07/03/2024 2:25 PM EST Office Visit Hematology/Oncology [facility] [address] [place] [address] Sy Dong MD 200 [facility] [place] [address] 07/17/2024 3:20 PM EST Office Visit [facility] [place] [address] Eddie Ruffin MD 132 [facility] [place] [address] 08/27/2024 2:45 PM EST Office Visit Urology, [facility] 132 [facility] [place] [address] Valentín Sampson MD [address] [facility] [place] [address] 10/19/2024 2:00 PM EDT Office Visit [facility] [address] [facility] [place] [address] Eddie Ruffin MD [facility] [place] [address] Health Maintenance Due Date Last Done Comments Zoster Vaccines (3 of 3) 04/17/2021 02/20/2021, 04/02 Diabetic Foot Exam 02/20/2022 02/20/2021, 1 , 09/22/2018, Additional history exists Adult Wellness Visit 08/04/2022 08/04/2021 Depression Monitoring 08/04/2022 08/04/2021 Colonoscopy 03/22/2023 03/22/2018, 03/02, 02/24/2016, Additional history exists Diabetic Eye Exam 01/29/2024 01/28/2023, , 06/22/2021, Additional history exists COVID-19 Vaccine (3 - season) 2024 11/05/2020, 10/13/2020 Influenza Vaccine (FLU shot) (#1) 2024 07/01/2023, 04/16/2022, 04/29/2021, Additional history exists Albumin/Creatinine Ratio 06/28/202406/28/2 023, 04/16/2022, 07/02/2021, Additional history exists HbA1c 10/08/2024 04/10/2024, 3 , 06/28/2023, Additional history exists GFR 04/10/2025 04/10/2024, 3 , 06/28/2023, Additional history exists O2 ASSESSMENT [...] this encounter Medical Devices Implanted Type Area Delinquent Tax Collector Assistant Device Identifier Shelf Expiration Date Model / Serial / Lot Cement Antibiotic Bone - [id number] Implanted:Qty: 2 on 06/21/2018 [place] Sridhar Grant [place] [facility] [place]nee DESHAWN : ORTHOPAEDICS 12/29/2018 6197-9-010 / / [id number] Triathlon Asyetric X3 Patell - [id number] Implanted:Qty: 1 on 06/21/2018 by Sridhar Grant [place] [facility] [place] [place] Knee DESHAWN : ORTHOPAEDICS 03/15/2023 5551-G-350 / / 1VE Component Femoral Rt Size 5 T - [id number] Implanted:Qty: 1 on 06/21/2018 by Sridhar Grant [place] [facility] [place] [place] Knee DESHAWN : ORTHOPAEDICS 12/10/2022 5510-F-502 / / [id number] Knee Baseplate Mis Tib Tri 5 - [id number] Implanted:Qty: 1 on 06/21/2018 by Sridhar Grant [place] [facility] [place] Knee DESHAWN : ORTHOPAEDICS 01/12/2023 5520-M-500 / / [id number] Knee X3 Ins Pos Cs Sz5 9 - [id number] Implanted:Qty: 1 on 06/21/2018 by Sridhar Grant [place] [facility] [place] Knee DESHAWN : ORTHOPAEDICS 10/17/2022 5531-G-509 / / [id number] documented as of this encounter Advance Directives [...] patient or by statute hierarchy) Care Teams Latex Ribbon Machine Operator Relationship Specialty Start Date End Date Eddie Ruffin MD [address] [place] [address] PCP - General Family Medicine 07/18/14 documented as of this encounter
--- OUTSIDE RECORDS SUMMARY | 2024-07-27 13:18 | External Medical Summary | Summary of Care ---
Author Name Unknown Organization [facility] Address [address] [place] [address] Phone [phone] Care Team Providers Care College Physics Instructor Name Role Phone Eddie Ruffin MD Primary Care Provider + Reason for Visit * Reason Onset Date Comments Medication Pre-auth 04/18/2024 Monoferric Encounter Details Date Type Department Care Team (Late st Contact Info) Description 04/18/2024 Telephone Hematology/Oncology Treatment, [place] [address] [place] [address] Sy Dong MD [address] [place] [address] Medication Pre-auth (Monoferric) Allergies Active Allergy Reactions [...] Base) MCG/ACT Inhalation Aerosol SolutionIndication s:COPD exacerbation ([facility]) Inhale 2 Puffs by mouth every 6 [...] 3 Each 11 10/17/2023 Active Dexcom G7 Structural Iron Erector Device Use to read blood glucose values with dexcom G7 sensor E 11.9 1 Each 10/17/2023 Active Insulin Glargine 100 UNIT/ML Subcutaneous Solution (Lantus)Indication s:Type 2 diabetes mellitus with hemoglobin A1c goal of less than 8.0% ([facility]) INJECT 55 UNITS UNDER THE SKIN AT BEDTIME 50 mL 1 10/24/2023 Active Isosorbide Mononitrate ER 30 MG Oral Tablet Extended Release 24 Hour (Imdur)Indications :Atherosclerosis of [place] coronary artery of [place] heart without angina pectoris TAKE 1 TABLET [...] goal of less than 8.0% ([facility]) Take 1 Tablet by mouth in the morning 30 minutes before a meal. 30 Tablet 5 12/30/2023 Active Pantoprazole Sodium 40 MG Oral Tablet Delayed Release (Protonix)Indicati ons:Esophageal obstruction TAKE 1 TABLET BY MOUTH DAILY. 90 Tablet 3 01/03/2024 Active Incruse Ellipta 62.5 MCG/ACT Inhalation Aerosol Powder Breath Activated (umeclidinium [place]) inhale ONE puff DAILY. 30 Each 7 [...] SYMPTOMS Medication Regimen o All Classes - PRANVA o Class B, C, D - LAMA Self-Management plan o Other: call [facility] Exacerbation plan o Has not [...] 06/14 abnormal stress test--referred for [place]ATH [place] [place]mild nonobstructive CAD> patent stent. Cont med mgmt 08/14 BRIGITTE- mod BPH 08/14 TTE normal EF, Gr I saavedra Dys, EGD-dilated Schatzki ring 06/13 PFT--normal spirometry with low norm obstructive index. No response to dilator. Normal diffusing. Some air trapping, suggestive flow patterns for obstruction. Acute. HTN, goal below 130/80 05/02/2012 Coronary atherosclerosis of [place] coronary kelby ry 03/06/2012 Overview: 1. S/p NSTEMI--CAD, NSTEMI , PCI with a bare metal stent to the OM1 on 02/03/12 at [facility] 2. 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 2012 PFT-low normal 08/14 CT [facility]-upper lobe emphysema, possible basilar fibrosis Lung density on x-ray 06/04/20132013 Overview: 06/13 density -repeat CXR 1mo Overweight (BMI 25.0-29.9) 04/03/2013 0 04/28/2017 Cough 10/24/2012 05/25/2013 Acute bronchitis, antibiotics not indicated 10/11/2012 05/25/2013 Impacted cerumen 10/11/2012 04/28/2017 Dermatitis 10/11/2012 04/28/2017 HTN, goal below 140/80 03/20/201205/02 Overview: Per HTN Protocol #27. Dyslipidemia, goal LDL below 70 02/07/2012 08/11/2022 [facility] [facility] Other*[id number] 02/03/2012 09/07/2016 History of non-ST elevation myocardial [...] encounter Miscellaneous Notes * Telephone Encounter - Patti Kumar RN - 04/19/2024 10:41 AM EDT Referral entered, sent to [facility]. * Telephone Encounter - Charu Mosley LPN - 04/18/2024 3:32 PM EDT Order received for Monoferric [place] plan built and routed to provider Awaiting prior authorization before scheduling patient. documented in this encounter Plan of Treatment Upcoming Encounters Date Type Department Care Team (Late st Contact Info) Description 05/01/2024 2:40 PM EDT Office Visit [facility] [address] [place] [address] Eddie Ruffin MD [address] [place] [address] 06/26/2024 3:30 PM EST Office Visit Cardiology, [facility] [address] [place] [address] Malathi Newman PA-C [address] [place] [address] 07/03/2024 2:25 PM EST Office Visit Hematology/Oncology [facility] [address] [facility] [place] [phone] Sy Dong MD [address] [facility] [place] [address] 07/17/2024 3:20 PM EST Office Visit [facility] [address] [place] [address] Eddie Ruffin MD [address] [place] [address] 08/27/2024 2:45 PM EST Office Visit Urology, [facility] [address] [place] [address] Valentín Sampson MD [address] [place] [address] 10/19/2024 2:00 PM EDT Office Visit Family [facility] [address] [place] [address] Eddie Ruffin MD [address] [place] [address] Health Maintenance Due Date Last Done Comments [...] 07/02/2021, Additional history exists HbA1c 10/08/2024 04/10/2024, 11/01, 06/28/2023, Additional history exists GFR 04/10/2025 04/10/2024, 11/01, 06/28/2023, Additional history exists O2 ASSESSMENT COMPLETED [...] this encounter Medical Devices Implanted Type Area Maintenance Mgr Device Identifier Shelf Expiration Date Model / Serial / Lot Cement Antibiotic Bone - [id number] Implanted:Qty: 2 on 06/21/2018 by Sridhar Grant MD at [place] [facility] [place] Right: Knee DESHAWN : ORTHOPAEDICS 12/29/2018 6197-9-010 / / [id number] Triathlon Asyetric X3 Patell - [id number] Implanted:Qty: 1 on 06/21/2018 by Sridhar Grant MD at [place] [facility] [place] Right: Knee DESHAWN : ORTHOPAEDICS 03/15/2023 5551-G-350 / / 1VE Component Femoral Rt Size 5 T - [id number] Implanted:Qty: 1 on 06/21/2018 by Sridhar Grant MD at [place] [facility] [place] Right: Knee DESHAWN : ORTHOPAEDICS 12/10/2022 5510-F-502 / / [id number] Knee Baseplate Mis Tib Tri 5 - [id number] Implanted:Qty: 1 on 06/21/2018 by Sridhar Grant MD at [place] [facility] [place] Right: Knee DESHAWN : ORTHOPAEDICS 01/12/2023 5520-M-500 / / [id number] Knee X3 Ins Pos Cs Sz5 9 - [id number] Implanted:Qty: 1 on 06/21/2018 by Sridhar Grant MD at OR [facility] Right: Knee DESHAWN : ORTHOPAEDICS 10/17/2022 5531-G-509 / / [id number] documented as of this encounter Advance Directives [...] patient or by statute hierarchy) Care Teams College Physics Instructor Relationship Specialty Start Date End Date Eddie Ruffin MD [address] [place] [address] PCP - General Family Medicine 07/18/14 documented as of this encounter
--- OUTSIDE RECORDS SUMMARY | 2024-07-27 13:18 | External Medical Summary | Summary of Care ---
Author Name Unknown Organization [facility] Address [address] [place] [address] Phone [phone] Care Team Providers Care Sr. Merchandise Planner Name Role Phone Eddie Ruffin MD Primary Care Provider + Encounter Details Date Type Department Care Team (Late st Contact Info) Description 04/27/2024 Result Scan Unspecified Department Lazaro Banks, DO [address] [place] [address] <No scans attached> Allergies Active Allergy Reactions Criticality Noted Date [...] Base) MCG/ACT Inhalation Aerosol SolutionIndication s:COPD exacerbation ([facility]) Inhale 2 Puffs by mouth every 6 [...] 3 Each 11 10/17/2023 Active Dexcom G7 Cellular Equipment Repairer Device Use to read blood glucose values with dexcom G7 sensor E 11.9 1 Each 10/17/2023 Active Insulin Glargine 100 UNIT/ML Subcutaneous Solution (Lantus)Indication s:Type 2 diabetes mellitus with hemoglobin A1c goal of less than 8.0% ([facility]) INJECT 55 UNITS UNDER THE SKIN AT BEDTIME 50 mL 1 10/24/2023 Active Isosorbide Mononitrate ER 30 MG Oral Tablet Extended Release 24 Hour (Imdur)Indications :Atherosclerosis of [place] coronary artery of [place] heart without angina pectoris TAKE 1 TABLET [...] MCG/ACT Inhalation Aerosol Powder Breath Activated (umeclidinium [place]) inhale ONE puff DAILY. 30 Each 7 [...] (Pain--apply to knees). 300 g 02/13/2024 Active HYDROcodone-Acetam inophen 5-325 MG Oral [...] - LAMA Self-Management plan o Other: call [facility] Exacerbation plan o Has not required [...] 06/14 abnormal stress test[place]mild nonobstructive [place]> patent stent. Cont med mgmt 08/14 BRIGITTE- mod BPH 08/14 TTE normal EF, Gr I saavedra Dys, EGD-dilated Schatzki ring 06/13 PFT--normal spirometry with low norm obstructive index. No response to dilator. Normal diffusing. Some air trapping, suggestive flow patterns for obstruction. Acute. 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 S/p NSTEMI--CAD, NSTEMI , PCI with a bare metal stent to the OM1 on 02/03/12 at [facility] 2. Patent OM1 stent with mild nonobstructive CAD noted elsewhere via the 06/24/14 catheter[place] [facility] [place] abnormal nuclear stress testing History of [...] airways disease. 2012 PFT-low normal 08/14 [facility]-upper lobe emphysema, possible basilar fibrosis Lung density on x-ray 06/04/20132013 Overview: 06/13 density -repeat CXR 1mo Overweight (BMI 25.0-29.9) 04/03/2013 0 04/28/2017 Cough 10/24/2012 05/25/2013 Acute bronchitis, antibiotics not indicated 10/11/2012 05/25/2013 Impacted cerumen 10/11/2012 04/28/2017 Dermatitis 10/11/2012 04/28/2017 HTN, goal below 140/80 03/20/201205/02 Overview: Per HTN Protocol #27. Dyslipidemia, goal LDL below 70 02/07/2012 08/11/2022 [facility] Other*[id number] 02/03/2012 09/07/2016 History of non-ST elevation myocardial [...] 12:45 PM EDT Hem/Onc Treatment Hematology/Oncology Treatment, [place] [address] [place] [address] 05/01/2024 2:40 PM EDT Office Visit Family [facility] 132 [facility] [place] [address] Eddie Ruffin MD [address] [place] [address] 06/26/2024 3:30 PM EST Office Visit Cardiology, [facility] [address] [place] [address] Malathi Newman PA-C 132 [facility] [place] [address] 07/03/2024 2:25 PM EST Office Visit Hematology/Oncology [facility] [address] [place] [phone] Sy Dong MD [address] [facility] [place], [place] [address] 07/17/2024 3:20 PM EST Office Visit [facility] [place] [address] Eddie Ruffin MD 132 [facility] [place] [address] 08/27/2024 2:45 PM EST Office Visit Urology, [facility] [address] [place] [address] Valentín Sampson MD [address] [place] [address] 10/19/2024 2:00 PM EDT Office Visit Family Practice [facility] [address] [place] [address] Eddie Ruffin MD [address] [place] [address] Health Maintenance Due Date Last Done Comments [...] this encounter Medical Devices Implanted Type Area Senior Climate Advisor Device Identifier Shelf Expiration Date Model / Serial / Lot Cement Antibiotic Bone - [id number] Implanted:Qty: 2 on 06/21/2018 by Sridhar Grant MD [place] [facility] [place]: Knee DESHAWN : ORTHOPAEDICS 12/29/2018 6197-9-010 / / [id number] Triathlon Asyetric X3 Patell - [id number] Implanted:Qty: 1 on 06/21/2018 by Sridhar Grant MD [place] [facility] [place]: Knee DESHAWN : ORTHOPAEDICS 03/15/2023 5551-G-350 / / 1VE Component Femoral Rt Size 5 T - [id number] Implanted:Qty: 1 on 06/21/2018 by Sridhar Grant MD [place] [facility] [place]: Knee DESHAWN : ORTHOPAEDICS 12/10/2022 5510-F-502 / / [id number] Knee Baseplate Mis Tib Tri 5 - [id number] Implanted:Qty: 1 on 06/21/2018 by Sridhar Grant MD [place] [facility] [place]: Knee DESHAWN : ORTHOPAEDICS 01/12/2023 5520-M-500 / / [id number] Knee X3 Ins Pos Cs Sz5 9 - [id number] Implanted:Qty: 1 on 06/21/2018 by Sridhar Grant MD [place] [facility] [place]: Knee DESHAWN : ORTHOPAEDICS 10/17/2022 5531-G-509 / / [id number] documented as of this encounter Procedures Procedure Name Priority Date/Time Associated Diagnosis Comments CARDIOLOGY SCANNED RESULT 04/27/2024 documented in this encounter Results * CARDIOLOGY SCANNED RESULT (04/27/2024) 04/27/2024 Lazaro Banks DO OTHER documented in this encounter Advance Directives * [...] patient or by statute hierarchy) Care Teams Sr. Merchandise Planner Relationship Specialty Start Date End Date Eddie Ruffin MD [address] [place] [address] PCP - General Family Medicine 07/18/14 documented as of this encounter
--- OUTSIDE RECORDS SUMMARY | 2024-07-27 13:18 | External Medical Summary | Summary of Care ---
Author Name Unknown Organization [facility] Address [address] [place] [address] Phone [phone] Care Team Providers Care Geophysical Laboratory Chief Name Role Phone Eddie Ruffin MD Primary Care Provider + Reason for Visit * Reason Onset Date Comments Medication Pre-auth 04/18/2024 Monoferric Encounter Details Date Type Department Care Team (Late st Contact Info) Description 04/18/2024 Telephone Hematology/Oncology Treatment, [place] [address] [place] [address] Sy Dong MD [address] [place] [address] Medication Pre-auth (Monoferric) Allergies Active Allergy Reactions [...] Base) MCG/ACT Inhalation Aerosol SolutionIndication s:COPD exacerbation ([facility]) Inhale 2 Puffs by mouth every [...] 3 Each 11 10/17/2023 Active Dexcom G7 Blocklayer Device Use to read blood glucose values with dexcom G7 sensor E 11.9 1 Each 10/17/2023 Active Insulin Glargine 100 UNIT/ML Subcutaneous Solution (Lantus)Indication s:Type 2 diabetes mellitus with hemoglobin A1c goal of less than 8.0% ([facility]) INJECT 55 UNITS UNDER THE SKIN AT BEDTIME 50 mL 1 10/24/2023 Active Isosorbide Mononitrate ER 30 MG Oral Tablet Extended Release 24 Hour (Imdur)Indications :Atherosclerosis of [place] coronary artery of [place] heart without angina pectoris TAKE 1 TABLET [...] A1c goal of less than 8.0% ([facility]) Take 1 Tablet by mouth in the morning 30 minutes before a meal. 30 Tablet 5 12/30/2023 Active Pantoprazole Sodium 40 MG Oral Tablet Delayed Release (Protonix)Indicati ons:Esophageal obstruction TAKE 1 TABLET BY MOUTH DAILY. 90 Tablet 3 01/03/2024 Active Incruse Ellipta 62.5 MCG/ACT Inhalation Aerosol Powder Breath Activated (umeclidinium [place]) inhale ONE puff DAILY. 30 Each 7 [...] - LAMA Self-Management plan o Other: call [facility] Exacerbation plan o Has not [...] goal below 130/80 05/02/2012 Coronary atherosclerosis of [place] coronary kelby ry 03/06/2012 Overview: 1. S/p NSTEMI--CAD, NSTEMI , PCI with a bare metal stent to the OM1 on 02/03/12 at [facility] 2. 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 2012 PFT-low normal 08/14 CT [facility]-upper lobe emphysema, possible basilar fibrosis Lung density on x-ray 06/04/20132013 Overview: 06/13 density -repeat CXR 1mo Overweight (BMI 25.0-29.9) 04/03/2013 0 04/28/2017 Cough 10/24/2012 05/25/2013 Acute bronchitis, antibiotics not indicated 10/11/2012 05/25/2013 Impacted cerumen 10/11/2012 04/28/2017 Dermatitis 10/11/2012 04/28/2017 HTN, goal below 140/80 03/20/201205/02 Overview: Per HTN Protocol #27. Dyslipidemia, goal LDL below 70 02/07/2012 08/11/2022 [facility] Other*[id number] 02/03/2012 09/07/2016 History of non-ST elevation myocardial [...] 10:41 AM EDT Referral entered, sent to [facility]. * Telephone Encounter - Charu Mosley LPN - 04/18/2024 3:32 PM EDT Order received for Monoferric [place] plan built and routed to provider Awaiting prior authorization before scheduling patient. documented in this encounter Plan of Treatment Upcoming Encounters Date Type Department Care Team (Late st Contact Info) Description 05/01/2024 2:40 PM EDT Office Visit [facility] [address] [place] [address] Eddie Ruffin MD [address] [place] [address] 06/26/2024 3:30 PM EST Office Visit Cardiology, [facility] [address] [place] [address] Malathi Newman PA-C [address] [place] [address] 07/03/2024 2:25 PM EST Office Visit Hematology/Oncology [facility] [place] [address] [place] [phone] Sy Dong MD [address] [place] [address] 07/17/2024 3:20 PM EST Office [facility] [place] [address] Eddie Ruffin MD [address] [place] [address] 08/27/2024 2:45 PM EST Office Visit Urology, [facility] [address] [facility] [place] [address] Valentín Sampson MD [address] [place] [address] 10/19/2024 2:00 PM EDT Office Visit Family Practice [facility] [address] [facility] [place] [address] Eddie Ruffin MD [address] [place] [address] Health Maintenance Due Date Last Done Comments [...] this encounter Medical Devices Implanted Type Area Custom Home Installer Device Identifier Shelf Expiration Date Model / Serial / Lot Cement Antibiotic Bone - [id number] Implanted:Qty: 2 on 06/21/2018 by Sridhar Grant MD at [place] [facility] Right: Knee DESHAWN : ORTHOPAEDICS 12/29/2018 6197-9-010 / / [id number] Triathlon Asyetric X3 Patell - [id number] Implanted:Qty: 1 on 06/21/2018 by Sridhar Grant MD at [place] [facility] [place] Right: Knee DESHAWN : ORTHOPAEDICS 03/15/2023 5551-G-350 / / 1VE Component Femoral Rt Size 5 T - [id number] Implanted:Qty: 1 on 06/21/2018 by Sridhar Grant MD at [place] [facility] [place] Right: Knee DESHAWN : ORTHOPAEDICS 12/10/2022 5510-F-502 / / [id number] Knee Baseplate Mis Tib Tri 5 - [id number] Implanted:Qty: 1 on 06/21/2018 by Sridhar Grant MD at [place] [facility] [place] Right: Knee DESHAWN : ORTHOPAEDICS 01/12/2023 5520-M-500 / / [id number] Knee X3 Ins Pos Cs Sz5 9 - [id number] Implanted:Qty: 1 on 06/21/2018 by Sridhar Grant MD at [place] [facility] [place] Right: Knee DESHAWN : ORTHOPAEDICS 10/17/2022 5531-G-509 / / [id number] documented as of this encounter Advance Directives [...] patient or by statute hierarchy) Care Teams Geophysical Laboratory Chief Relationship Specialty Start Date End Date Eddie Ruffin MD [address] [place] [address] PCP - General Family Medicine 07/18/14 documented as of this encounter
--- OUTSIDE RECORDS SUMMARY | 2024-07-27 13:19 | External Medical Summary | Summary of Care ---
Author Name Unknown Organization [facility] Address [address] [place] [address] Phone [phone] Care Team Providers Care Trauma Surgeon Name Role Phone Eddie Ruffin MD Primary Care Provider + Encounter Details Date Type Department Care Team (Late st Contact Info) Description 04/18/2024 Orders Only Hematology/Oncology, [facility] [address] [place] [address] Sy Dong MD [address] [place] [address] Allergies Active Allergy Reactions Criticality Noted Date Comments Formoterol High 02/16/2022 Other reaction(s): RASH Lisinopril Cough Low 10/24/2012 Penicillins Other (Please comment) 08/15/2013 Family hx allergic reaction Simvastatin High 02/16/2022 Other reaction(s): RASH documented as of this encounter (statuses as of 04/18/2024) Medications Medication Sig Dispensed Refills Start Date [...] Base) MCG/ACT Inhalation Aerosol SolutionIndication s:COPD exacerbation ([facility]) Inhale 2 Puffs by [...] 3 Each 11 10/17/2023 Active Dexcom G7 Ager Tender Device Use to read blood glucose values with dexcom G7 sensor E 11.9 1 Each 10/17/2023 Active Insulin Glargine 100 UNIT/ML Subcutaneous Solution (Lantus)Indication s:Type 2 diabetes mellitus with hemoglobin A1c goal of less than 8.0% ([facility]) INJECT 55 UNITS UNDER THE SKIN AT BEDTIME 50 mL 1 10/24/2023 Active Isosorbide Mononitrate ER 30 MG Oral Tablet Extended Release 24 Hour (Imdur)Indications :Atherosclerosis of [place] coronary artery of [place] heart without angina pectoris TAKE 1 TABLET [...] hemoglobin A1c goal of less than 8.0% ([facility]) Take 1 Tablet by mouth in the morning 30 minutes before a meal. 30 Tablet 12/30/2023 Active Pantoprazole Sodium 40 MG Oral Tablet Delayed Release (Protonix)Indicati ons:Esophageal obstruction TAKE 1 TABLET BY MOUTH DAILY. 90 Tablet 3 01/03/2024 Active Incruse Ellipta 62.5 MCG/ACT Inhalation Aerosol Powder Breath Activated (umeclidinium [place]) inhale ONE puff DAILY. 30 Each 7 [...] as of this encounter (statuses as of 04/18/2024) Active Problems Problem Noted Date Diagnosed Date [...] - LAMA Self-Management plan o Other: call [facility] Exacerbation plan o Has not required [...] prep) 06/14 abnormal stress test--ref[place]mild nonobstructive CAD> patent stent. Cont med mgmt 08/14 BRIGITTE- mod BPH 08/14 TTE normal EF, Gr I saavedra Dys, EGD-dilated Schatzki ring 06/13 PFT--normal spirometry with low norm obstructive index. No response to dilator. Normal diffusing. Some air trapping, suggestive flow patterns for obstruction. Acute. HTN, goal below 130/80 05/02/2012 Coronary atherosclerosis of [place] coronary kelby ry 03/06/2012 Overview: 1. S/p NSTEMI--CAD, NSTEMI , PCI with a bare metal stent to the OM1 on 02/03/12 at [facility] 2. 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 2012 PFT-low normal 08/14 CT [facility]-upper lobe emphysema, possible basilar fibrosis Lung density on x-ray 06/04/20132013 Overview: 06/13 density -repeat CXR 1mo Overweight (BMI 25.0-29.9) 04/03/2013 0 04/28/2017 Cough 10/24/2012 05/25/2013 Acute bronchitis, antibiotics not indicated 10/11/2012 05/25/2013 Impacted cerumen 10/11/2012 04/28/2017 Dermatitis 10/11/2012 04/28/2017 HTN, goal below 140/80 03/20/201205/02 Overview: Per HTN Protocol #27. Dyslipidemia, goal LDL below 70 02/07/2012 08/11/2022 [employer] Other*[id number] 02/03/2012 09/07/2016 History of non-ST elevation myocardial [...] as of this encounter (statuses as of 04/18/2024) Immunizations Name Administration Dates Next Due COVID-19 [...] 2:40 PM EDT Office Visit Family Practice [facility] [address] [place] [address] Eddie Ruffin MD [address] [place] [address] 06/26/2024 3:30 PM EST Office Visit Cardiology, [facility] [address] [place] [address] Malathi Newman PA-C [address] [place] [address] 07/03/2024 2:25 PM EST Office Visit Hematology/Oncology [facility] [address] [facility] [place], [place] [phone] Sy Dong MD [address] [facility] [place], [place] [address] 07/17/2024 3:20 PM EST Office Visit Family Practice [facility] [address] [facility] [place] [address] Eddie Ruffin MD [address] [place] [address] 08/27/2024 2:45 PM EST Office Visit Urology, [facility] [address] [place] [address] Valentín Sampson MD [address] [place] [address] 10/19/2024 2:00 PM EDT Office Visit Family Practice [facility] [place] [address] Eddie Ruffin MD [address] [place] [address] Health Maintenance Due Date Last Done Comments [...] 06/28/2023, Additional history exists GFR 04/10/2025 04/10/2024, 04/3 , 06/28/2023, Additional history exists O2 ASSESSMENT [...] this encounter Medical Devices Implanted Type Area Sheetmetal Worker Device Identifier Shelf Expiration Date Model / Serial / Lot Cement Antibiotic Bone - [id number] Implanted:Qty: 2 on 06/21/2018 by Sridhar Grant MD [place] [facility] Right: Knee DESHAWN : ORTHOPAEDICS 12/29/2018 6197-9-010 / / [id number] Triathlon Asyetric X3 Patell - [id number] Implanted:Qty: 1 on 06/21/2018 by Sridhar Grant MD [place] [facility] Right: Knee DESHAWN : ORTHOPAEDICS 03/15/2023 5551-G-350 / / [id number] Component Femoral Rt Size 5 T - [id number] Implanted:Qty: 1 on 06/21/2018 by Sridhar Grant MD at [place] [facility] Right: Knee DESHAWN : ORTHOPAEDICS 12/10/2022 5510-F-502 / / [id number] Knee Baseplate Mis Tib Tri 5 - [id number] Implanted:Qty: 1 on 06/21/2018 by Sridhar Grant MD at [place] [facility] Right: Knee DESHAWN : ORTHOPAEDICS 01/12/2023 5520-M-500 / / [id number] Knee X3 Ins Pos Cs Sz5 9 - [id number] Implanted:Qty: 1 on 06/21/2018 by Sridhar Grant MD at [place] [facility] Right: Knee DESHAWN : ORTHOPAEDICS 10/17/2022 5531-G-509 / / [id number] documented as of this encounter Advance Directives [...] patient or by statute hierarchy) Care Teams Trauma Surgeon Relationship Specialty Start Date End Date Eddie Ruffin MD [address] [place] [address] PCP - General Family Medicine 07/18/14 documented as of this encounter
--- OUTSIDE RECORDS SUMMARY | 2024-07-27 13:19 | External Medical Summary | Summary of Care ---
Author Name Unknown Organization [facility] Address [address] [place] [address] Phone [phone] Care Team Providers Care Operations Leader Name Role Phone Eddie Ruffin MD Primary Care Provider + Reason for Visit * Reason Onset Date Comments Appointment 04/17/2024 Encounter Details Date Type Department Care Team (Late st Contact Info) Description 04/17/2024 Telephone Hematology/Oncology [facility] [address] [facility] [place] [address] Trena Reid CRNP [address] [place] [address] Appointment Allergies Active Allergy Reactions Criticality Noted Date Comments Formoterol High 02/16/2022 Other reaction(s): RASH Lisinopril Cough Low 10/24/2012 Penicillins Other (Please comment) 08/15/2013 Family hx allergic reaction Simvastatin High 02/16/2022 Other reaction(s): RASH documented as of this encounter (statuses as of 04/17/2024) Medications Medication Sig Dispensed Refills Start Date [...] 3 Each 11 10/17/2023 Active Dexcom G7 Airplane Technician Device Use to read blood glucose values with dexcom G7 sensor E 11.9 1 Each 10/17/2023 Active Insulin Glargine 100 UNIT/ML Subcutaneous Solution (Lantus)Indication s:Type 2 diabetes mellitus with hemoglobin A1c goal of less than 8.0% ([facility]) INJECT 55 UNITS UNDER THE SKIN AT BEDTIME 50 mL 1 10/24/2023 Active Isosorbide Mononitrate ER 30 MG Oral Tablet Extended Release 24 Hour (Imdur)Indications :Atherosclerosis of [place] coronary artery of [place] heart without angina pectoris TAKE 1 TABLET [...] hemoglobin A1c goal of less than 8.0% ([facility]) Take 1 Tablet by mouth in the morning 30 minutes before a meal. 30 Tablet 5 12/30/2023 Active Pantoprazole Sodium 40 MG Oral Tablet Delayed Release (Protonix)Indicati ons:Esophageal obstruction TAKE 1 TABLET BY MOUTH DAILY. 90 Tablet 3 01/03/2024 Active Incruse Ellipta 62.5 MCG/ACT Inhalation Aerosol Powder Breath Activated (umeclidinium [place]) inhale ONE puff DAILY. 30 Each 7 [...] as of this encounter (statuses as of 04/17/2024) Active Problems Problem Noted Date Diagnosed Date SSS (sick sinus syndrome) 01/13/2024 MDD (major [...] - LAMA Self-Management plan o Other: call [facility] Exacerbation plan o Has not [...] prep) 06/14 abnormal stress test--referred for CATH [facility]--mild nonobstructive CAD> patent stent. Cont med mgmt 08/14 BRIGITTE- mod BPH 08/14 TTE normal EF, Gr I saavedra Dys, EGD-dilated Schatzki ring 06/13 PFT--normal spirometry with low norm obstructive index. No response to dilator. Normal diffusing. Some air trapping, suggestive flow patterns for obstruction. Acute. HTN, goal below 130/80 05/02/2012 Coronary atherosclerosis of [place] coronary kelby ry 03/06/2012 Overview: 1. S/p NSTEMI--CAD, NSTEMI , PCI with a bare metal stent to the OM1 on 02/03/12 at [facility] 2. 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 2012 PFT-low normal 08/14 [facility]-upper lobe emphysema, possible basilar fibrosis Lung density on x-ray 06/04/20132013 Overview: 06/13 density -repeat CXR 1mo Overweight (BMI 25.0-29.9) 04/03/2013 0 04/28/2017 Cough 10/24/2012 05/25/2013 Acute bronchitis, antibiotics not indicated 10/11/2012 05/25/2013 Impacted cerumen 10/11/2012 04/28/2017 Dermatitis 10/11/2012 04/28/2017 HTN, goal below 140/80 03/20/201205/02 Overview: Per HTN Protocol #27. Dyslipidemia, goal LDL below 70 02/07/2012 08/11/2022 [employer] Other*[id number] 02/03/2012 09/07/2016 History of non-ST elevation myocardial [...] as of this encounter (statuses as of 04/17/2024) Immunizations Name Administration Dates Next Due COVID-19 [...] encounter Miscellaneous Notes * Telephone Encounter - Charu Mosley LPN - 04/17/2024 3:22 PM EDT Attempted to contact patient and again, unable to leave a voicemail on patient's telephones, "voicemail mail box not set up." * Telephone Encounter - Charu Mosley LPN - 04/17/2024 2:42 PM EDT Attempted to contact patient and his spouse Gabi, unable to leave a voicemail; voicemail boxes not set up yet. Per Trena would like offer patient Venofer infusion to have done if able to accommodate in the treatment room before his appointment with Dr. Dong tomorrow, 04/18/2024 at 3:00 pm. Will attempt to contact patient at a later time documented in this encounter Plan of Treatment Upcoming Encounters Date Type Department Care Team (Late st Contact Info) Description 04/18/2024 3:00 PM EDT Office Visit Hematology/Oncology [facility] [address] [facility] [place] [phone] Sy Dong MD [address] [facility] [place] [address] 05/01/2024 2:40 PM EDT Office Visit [facility] [address] [place] [address] Eddie Ruffin MD [address] [place] [address] 06/26/2024 3:30 PM EST Office Visit Cardiology, [facility] [address] [place] [address] Malathi Newman PA-C [address] [place] [address] 07/17/2024 3:20 PM EST Office Visit [facility] [address] [place] [address] Eddie Ruffin MD [address] [place] [address] 08/27/2024 2:45 PM EST Office Visit Urology, [facility] [address] [place] [address] Valentín Sampson MD [address] [place] [address] 10/19/2024 2:00 PM EDT Office Visit Family Practice [facility] [address] [place] [address] Eddie Ruffin MD [address] [place] [address] Health Maintenance Due Date Last Done Comments [...] 04/16/2022, 04/29/2021, Additional history exists Albumin/Creatinine Ratio 06/28/202406/28/ 023, 04/16/2022, 07/02/2021, Additional history exists HbA1c 10/08/2024 04/10/2024, 11/01, 06/28/2023, Additional history exists O2 ASSESSMENT COMPLETED IN PAST YEAR FOR COPD 01/12/2025 01/13/2024 GFR 04/10/2025 04/10/2024, 04/3 , 06/28/2023, Additional history exists DTap/Tdap Vaccines (3 - [...] this encounter Medical Devices Implanted Type Area Embossing Calender Operator Device Identifier Shelf Expiration Date Model / Serial / Lot Cement Antibiotic Bone - [id number] Implanted:Qty: 2 on 06/21/2018 by Sridhar Grant MD at OR [facility] Right: Knee DESHAWN : ORTHOPAEDICS 12/29/2018 6197-9-010 / / [id number] Triathlon Asyetric X3 Patell - [id number] Implanted:Qty: 1 on 06/21/2018 by Sridhar Grant MD at OR [facility] Right: Knee DESHAWN : ORTHOPAEDICS 03/15/2023 5551-G-350 / / 1VE Component Femoral Rt Size 5 T - [id number] Implanted:Qty: 1 on 06/21/2018 by Sridhar Grant MD at OR [facility] Right: Knee DESHAWN : ORTHOPAEDICS 12/10/2022 5510-F-502 / / [id number] Knee Baseplate Mis Tib Tri 5 - [id number] Implanted:Qty: 1 on 06/21/2018 by Sridhar Grant MD at OR [facility] Right: Knee DESHAWN : ORTHOPAEDICS 01/12/2023 5520-M-500 / / [id number] Knee X3 Ins Pos Cs Sz5 9 - [id number] Implanted:Qty: 1 on 06/21/2018 by Sridhar Grant MD at OR [facility] Right: Knee DESHAWN : ORTHOPAEDICS 10/17/2022 5531-G-509 / / [id number] documented as of this encounter Advance Directives [...] patient or by statute hierarchy) Care Teams Operations Leader Relationship Specialty Start Date End Date Eddie Ruffin MD [address] [place] [address] PCP - General Family Medicine 07/18/14 documented as of this encounter
--- OUTSIDE RECORDS SUMMARY | 2024-07-27 13:19 | External Medical Summary | Summary of Care ---
Author Name Unknown Organization [facility] Address [address] [place] [address] Phone [phone] Care Team Providers Care Firmware Developer Name Role Phone Eddie Ruffin MD Primary Care Provider + Encounter Details Date Type Department Care Team (Late st Contact Info) Description 04/19/2024 Population Health External Data Unspecified Department Allergies Active Allergy Reactions Criticality Noted Date Comments Formoterol High 02/16/2022 Other reaction(s): RASH Lisinopril Cough Low 10/24/2012 Penicillins Other (Please comment) 08/15/2013 Family hx allergic reaction Simvastatin High 02/16/2022 Other reaction(s): RASH documented as of this encounter (statuses as of 04/23/2024) Medications Medication Sig Dispensed Refills Start Date [...] 3 Each 11 10/17/2023 Active Dexcom G7 Trimming Machine Set Up Operator Device Use to read blood glucose values with dexcom G7 sensor E 11.9 1 Each 10/17/2023 Active Insulin Glargine 100 UNIT/ML Subcutaneous Solution (Lantus)Indication s:Type 2 diabetes mellitus with hemoglobin A1c goal of less than 8.0% ([facility]) INJECT 55 UNITS UNDER THE SKIN AT BEDTIME 50 mL 1 10/24/2023 Active Isosorbide Mononitrate ER 30 MG Oral Tablet Extended Release 24 Hour (Imdur)Indications :Atherosclerosis of [place] coronary artery of [place] heart without angina pectoris TAKE 1 TABLET [...] hemoglobin A1c goal of less than 8.0% ([facility]) Take 1 Tablet by mouth in the morning 30 minutes before a meal. 30 Tablet 12/30/2023 Active Pantoprazole Sodium 40 MG Oral Tablet Delayed Release (Protonix)Indicati ons:Esophageal obstruction TAKE 1 TABLET BY MOUTH DAILY. 90 Tablet 3 01/03/2024 Active Incruse Ellipta 62.5 MCG/ACT Inhalation Aerosol Powder Breath Activated (umeclidinium [place]) inhale ONE puff DAILY. 30 Each 7 [...] as of this encounter (statuses as of 04/23/2024) Active Problems Problem Noted Date Diagnosed Date [...] LAMA Self-Management plan o Other: call [facility] Exacerbation plan o Has not [...] prep) 06/14 abnormal stress test--referred for CATH [place]--mild nonobstructive CAD> patent stent. Cont med mgmt 08/14 BRIGITTE- mod BPH 08/14 TTE normal EF, Gr I saavedra Dys, EGD-dilated Schatzki ring 06/13 PFT--normal spirometry with low norm obstructive index. No response to dilator. Normal diffusing. Some air trapping, suggestive flow patterns for obstruction. Acute. 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 S/p NSTEMI--CAD, NSTEMI , PCI with a bare metal stent to the OM1 on 02/03/12 at [facility] 2. 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 2012 PFT-low normal 08/14 [facility]-upper lobe emphysema, possible basilar fibrosis Lung density on x-ray 06/04/20132013 Overview: 06/13 density -repeat CXR 1mo Overweight (BMI 25.0-29.9) 04/03/2013 0 04/28/2017 Cough 10/24/2012 05/25/2013 Acute bronchitis, antibiotics not indicated 10/11/2012 05/25/2013 Impacted cerumen 10/11/2012 04/28/2017 Dermatitis 10/11/2012 04/28/2017 HTN, goal below 140/80 03/20/201205/02 Overview: Per HTN Protocol #27. Dyslipidemia, goal LDL below 70 02/07/2012 08/11/2022 [employer] Other*[id number] 02/03/2012 09/07/2016 History of non-ST elevation myocardial [...] as of this encounter (statuses as of 04/23/2024) Immunizations Name Administration Dates Next Due COVID-19 [...] 2:40 PM EDT Office Visit Family Practice [facility] [address] [address] Eddie Ruffin MD [address] [place] [address] 06/26/2024 3:30 PM EST Office Visit Cardiology, [facility] [address] [address] Malathi Newman PA-C [address] [place] [address] 07/03/2024 2:25 PM EST Office Visit Hematology/Oncology [facility] [address] [facility] [place] [phone] Sy Dong MD [address] [facility] [place] [address] 07/17/2024 3:20 PM EST Office Visit [facility] [place] [address] Eddie Ruffin MD [address] [place] [address] 08/27/2024 2:45 PM EST Office Visit Urology, [facility] [address] [facility] [place] [address] Valentín Sampson MD [address] [place] [phone] 10/19/2024 2:00 PM EDT Office Visit [facility] [address] [facility] [place] [address] Eddie Ruffin MD [address] [facility] [place] [address] Health Maintenance Due Date Last Done Comments Zoster Vaccines (3 of 3) 04/17/2021 02/20/2021, 04/02 Diabetic Foot Exam 02/20/2022 02/20/2021, 1 , 09/22/2018, Additional history exists Adult Wellness Visit 08/04/2022 08/04/2021 Depression Monitoring 08/04/2022 08/04/2021 Colonoscopy 03/22/2023 03/22/2018, 03/02, 02/24/2016, Additional history exists Diabetic Eye Exam 01/29/2024 01/28/2023, , 06/22/2021, Additional history exists COVID-19 Vaccine ( - 2023- season) 2024 11/05/2020, 10/13/2020 Influenza Vaccine (FLU [...] this encounter Medical Devices Implanted Type Area Air Brake Tester Device Identifier Shelf Expiration Date Model / Serial / Lot Cement Antibiotic Bone - [id number] Implanted:Qty: 2 on 06/21/2018 by Sridhar Grant MD at [place] [facility] Right: Knee DESHAWN : ORTHOPAEDICS 12/29/2018 6197-9-010 / / [id number] Triathlon Asyetric X3 Patell - [id number] Implanted:Qty: 1 on 06/21/2018 by Sridhar Grant MD at [place] [facility] Right: Knee DESHAWN : ORTHOPAEDICS 03/15/2023 5551-G-350 / / 1VE Component Femoral Rt Size 5 T - [id number] Implanted:Qty: 1 on 06/21/2018 by Sridhar Grant MD at [place] [facility] Right: Knee DESHAWN : ORTHOPAEDICS 12/10/2022 5510-F-502 / / [id number] Knee Baseplate Mis Tib Tri 5 - [id number] Implanted:Qty: 1 on 06/21/2018 by Sridhar Grant MD at [place] [facility] Right: Knee DESHAWN : ORTHOPAEDICS 01/12/2023 5520-M-500 / / [id number] Knee X3 Ins Pos Cs Sz5 9 - [id number] Implanted:Qty: 1 on 06/21/2018 by Sridhar Grant MD at [place] [facility] Right: Knee DESHAWN : ORTHOPAEDICS 10/17/2022 5531-G-509 / / [id number] documented as of this encounter Advance Directives [...] patient or by statute hierarchy) Care Teams Firmware Developer Relationship Specialty Start Date End Date Eddie Ruffin MD [address] [place] [address] PCP - General Family Medicine 07/18/14 documented as of this encounter
--- OUTSIDE RECORDS SUMMARY | 2024-07-27 13:19 | External Medical Summary | Summary of Care ---
Author Name Unknown Organization [facility] Address [address] [place] [address] Phone [phone] Care Team Providers Care Consulting Property Manager Name Role Phone Eddie Ruffin MD Primary Care Provider + Reason for Visit * Reason Onset Date Comments Medication Pre-auth 04/18/2024 Monoferric Encounter Details Date Type Department Care Team (Late st Contact Info) Description 04/18/2024 Telephone Hematology/Oncology Treatment, [place] [address] [place] [address] Sy Dong MD [address] [place] [address] Medication Pre-auth (Monoferric) Allergies Active Allergy Reactions [...] Base) MCG/ACT Inhalation Aerosol SolutionIndication s:COPD exacerbation ([facility]) Inhale 2 Puffs by mouth every 6 [...] 3 Each 11 10/17/2023 Active Dexcom G7 Clinical Data Coordinator Device Use to read blood glucose [...] Extended Release 24 Hour (Imdur)Indications :Atherosclerosis of [place] coronary artery of [place] heart without angina pectoris TAKE 1 [...] MCG/ACT Inhalation Aerosol Powder Breath Activated (umeclidinium [place]) inhale ONE puff DAILY. 30 Each 7 [...] - LAMA Self-Management plan o Other: call [facility] Exacerbation plan o Has not [...] prep) 06/14 abnormal stress test--referred for CATH @[facility]--mild nonobstructive CAD> patent stent. Cont med mgmt 08/14 BRIGITTE- mod BPH 08/14 TTE normal EF, Gr I saavedra Dys, EGD-dilated Schatzki ring 06/13 PFT--normal spirometry with low norm obstructive index. No response to dilator. Normal diffusing. Some air trapping, suggestive flow patterns for obstruction. Acute. HTN, goal below 130/80 05/02/2012 Coronary atherosclerosis of [place] coronary kelby ry 03/06/2012 Overview: 1. S/p NSTEMI--CAD, NSTEMI , PCI with a bare metal stent to the OM1 on 02/03/12 at [facility] 2. 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 2012 PFT-low normal 08/14 [facility]-upper lobe emphysema, possible basilar fibrosis Lung density on x-ray 06/04/20132013 Overview: 06/13 density -repeat CXR 1mo Overweight (BMI 25.0-29.9) 04/03/2013 0 04/28/2017 Cough 10/24/2012 05/25/2013 Acute bronchitis, antibiotics not indicated 10/11/2012 05/25/2013 Impacted cerumen 10/11/2012 04/28/2017 Dermatitis 10/11/2012 04/28/2017 HTN, goal below 140/80 03/20/201205/02 Overview: Per HTN Protocol #27. Dyslipidemia, goal LDL below 70 02/07/2012 08/11/2022 [employer] [facility] [employer] Other*[id number] 02/03/2012 09/07/2016 History of non-ST elevation myocardial [...] 3:32 PM EDT Order received for Monoferric [place] plan built and routed to provider Awaiting prior authorization before scheduling patient. documented in this encounter Plan of Treatment Upcoming Encounters Date Type Department Care Team (Late st Contact Info) Description 05/01/2024 2:40 PM EDT Office Visit [facility] [address] [place] [address] Eddie Ruffin MD [address] [place] [address] 06/26/2024 3:30 PM EST Office Visit Cardiology, [facility] [address] [place] [address] Malathi Newman PA-C [address] [place] [address] 07/03/2024 2:25 PM EST Office Visit Hematology/Oncology [facility] [address] [facility] [place] [phone] Sy Dong MD [address] [facility] [place] [address] 07/17/2024 3:20 PM EST Office Visit [facility] [address] [place] [address] Eddie Ruffin MD 132 [facility] [place] [address] 08/27/2024 2:45 PM EST Office Visit Urology, [facility] [address] [place] [address] Valentín Sampson MD [address] [place] [address] 10/19/2024 2:00 PM EDT Office Visit Family Practice [facility] [address] [place] [address] Eddie Ruffin MD [address] [place] [address] Health Maintenance Due Date Last Done Comments [...] this encounter Medical Devices Implanted Type Area Bucket Chucker Device Identifier Shelf Expiration Date Model / Serial / Lot Cement Antibiotic Bone - [id number] Implanted:Qty: 2 on 06/21/2018 by Sridhar Grant MD at OR [facility] Right: Knee DESHAWN : ORTHOPAEDICS 12/29/2018 6197-9-010 / / [id number] Triathlon Asyetric X3 Patell - [id number] Implanted:Qty: 1 on 06/21/2018 by Sridhar Grant MD at OR [facility] Right: Knee DESHAWN : ORTHOPAEDICS 03/15/2023 5551-G-350 / / [id number] Component Femoral Rt Size 5 T - [id number] Implanted:Qty: 1 on 06/21/2018 by Sridhar Grant MD at OR [facility] Right: Knee DESHAWN : ORTHOPAEDICS 12/10/2022 5510-F-502 / / [id number] Knee Baseplate Mis Tib Tri 5 - [id number] Implanted:Qty: 1 on 06/21/2018 by Sridhar Grant MD at OR [facility] Right: Knee DESHAWN : ORTHOPAEDICS 01/12/2023 5520-M-500 / / [id number] Knee X3 Ins Pos Cs Sz5 9 - [id number] Implanted:Qty: 1 on 06/21/2018 by Sridhar Grant MD at OR [facility] Right: Knee DESHAWN : ORTHOPAEDICS 10/17/2022 5531-G-509 / / [id number] documented as of this encounter Advance Directives [...] patient or by statute hierarchy) Care Teams Consulting Property Manager Relationship Specialty Start Date End Date Eddie Ruffin MD [address] [place] [address] PCP - General Family Medicine 07/18/14 documented as of this encounter
--- OUTSIDE RECORDS SUMMARY | 2024-07-27 13:19 | External Medical Summary | Summary of Care ---
Author Name Unknown Organization [facility] Address [address] [place] [address] Phone [phone] Care Team Providers Care Treatment Specialist Name Role Phone Eddie Ruffin MD Primary Care Provider + Reason for Visit * Reason Onset Date Comments Medication Pre-auth 04/18/2024 Monoferric Encounter Details Date Type Department Care Team (Late st Contact Info) Description 04/18/2024 Telephone Hematology/Oncology Treatment, [place] [address] [place] [address] Sy Dong MD [address] [place] [address] Medication Pre-auth (Monoferric) Allergies Active Allergy Reactions Criticality Noted Date Comments Formoterol High 02/16/2022 Other reaction(s): RASH Lisinopril Cough Low 10/24/2012 Penicillins Other (Please comment) 08/15/2013 Family hx allergic reaction Simvastatin High 02/16/2022 Other reaction(s): RASH documented as of this encounter (statuses as of 04/19/2024) Medications Medication Sig Dispensed Refills Start Date [...] Base) MCG/ACT Inhalation Aerosol SolutionIndication s:COPD exacerbation ([facility]) Inhale 2 Puffs by mouth every 6 [...] 3 Each 11 10/17/2023 Active Dexcom G7 Development Spec Device Use to read blood glucose values with dexcom G7 sensor E 11.9 1 Each 10/17/2023 Active Insulin Glargine 100 UNIT/ML Subcutaneous Solution (Lantus)Indication s:Type 2 diabetes mellitus with hemoglobin A1c goal of less than 8.0% ([facility]) INJECT 55 UNITS UNDER THE SKIN AT BEDTIME 50 mL 1 10/24/2023 Active Isosorbide Mononitrate ER 30 MG Oral Tablet Extended Release 24 Hour (Imdur)Indications :Atherosclerosis of [place] coronary artery of [place] heart without angina pectoris TAKE 1 TABLET [...] hemoglobin A1c goal of less than 8.0% ([facility]) Take 1 Tablet by mouth in the morning 30 minutes before a meal. 30 Tablet 5 12/30/2023 Active Pantoprazole Sodium 40 MG Oral Tablet Delayed Release (Protonix)Indicati ons:Esophageal obstruction TAKE 1 TABLET BY MOUTH DAILY. 90 Tablet 3 01/03/2024 Active Incruse Ellipta 62.5 MCG/ACT Inhalation Aerosol Powder Breath Activated (umeclidinium [place]) inhale ONE puff DAILY. 30 Each 7 [...] as of this encounter (statuses as of 04/19/2024) Active Problems Problem Noted Date Diagnosed Date [...] - LAMA Self-Management plan o Other: call [facility] Exacerbation plan o Has not [...] stress test--referred for CATH @[facility]--mild nonobstructive CAD> patent stent. Cont med mgmt 08/14 BRIGITTE- mod BPH 08/14 TTE normal EF, Gr I saavedra Dys, EGD-dilated Schatzki ring 06/13 PFT--normal spirometry with low norm obstructive index. No response to dilator. Normal diffusing. Some air trapping, suggestive flow patterns for obstruction. Acute. 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 S/p NSTEMI--CAD, NSTEMI , PCI with a bare metal stent to the OM1 on 02/03/12 at [facility] 2. 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 2012 PFT-low normal 08/14 [facility]-upper lobe emphysema, possible basilar fibrosis Lung density on x-ray 06/04/20132013 Overview: 06/13 density -repeat CXR 1mo Overweight (BMI 25.0-29.9) 04/03/2013 0 04/28/2017 Cough 10/24/2012 05/25/2013 Acute bronchitis, antibiotics not indicated 10/11/2012 05/25/2013 Impacted cerumen 10/11/2012 04/28/2017 Dermatitis 10/11/2012 04/28/2017 HTN, goal below 140/80 03/20/201205/02 Overview: Per HTN Protocol #27. Dyslipidemia, goal LDL below 70 02/07/2012 08/11/2022 [facility] Other*[id number] 02/03/2012 09/07/2016 History of non-ST elevation myocardial [...] as of this encounter (statuses as of 04/19/2024) Immunizations Name Administration Dates Next Due COVID-19 [...] 3:32 PM EDT Order received for Monoferric [place] plan built and routed to provider Awaiting prior authorization before scheduling patient. documented in this encounter Plan of Treatment Upcoming Encounters Date Type Department Care Team (Late st Contact Info) Description 05/01/2024 2:40 PM EDT Office Visit [facility] [address] [place] [address] Eddie Ruffin MD [address] [place] [address] 06/26/2024 3:30 PM EST Office Visit Cardiology, [facility] [address] [place] [address] Malathi Newman PA-C [address] [place] [address] 07/03/2024 2:25 PM EST Office Visit Hematology/Oncology [facility] [address] [facility] [place] [phone] Sy Dong MD [address] [facility] [place] [address] 07/17/2024 3:20 PM EST Office Visit [facility] [address] [place] [address] Eddie Ruffin MD [address] [place] [address] 08/27/2024 2:45 PM EST Office Visit Urology, [facility] [address] [place] [address] Valentín Sampson MD [address] [place] [address] 10/19/2024 2:00 PM EDT Office Visit Family [facility] [address] [place] [address] Eddie Ruffin MD [address] [place] [address] Health Maintenance Due Date Last Done Comments [...] this encounter Medical Devices Implanted Type Area Registered Pharmacist Device Identifier Shelf Expiration Date Model / Serial / Lot Cement Antibiotic Bone - [id number] Implanted:Qty: 2 on 06/21/2018 by Sridhar Grant MD at OR [facility] Right: Knee DESHAWN : ORTHOPAEDICS 12/29/2018 6197-9-010 / / [id number] Triathlon Asyetric X3 Patell - [id number] Implanted:Qty: 1 on 06/21/2018 by Sridhar Grant MD at OR [facility] Right: Knee DESHAWN : ORTHOPAEDICS 03/15/2023 5551-G-350 / / 1VE Component Femoral Rt Size 5 T - [id number] Implanted:Qty: 1 on 06/21/2018 by Sridhar Grant MD at OR [facility] Right: Knee DESHAWN : ORTHOPAEDICS 12/10/2022 5510-F-502 / / [id number] Knee Baseplate Mis Tib Tri 5 - [id number] Implanted:Qty: 1 on 06/21/2018 by Sridhar Grant MD at OR [facility] Right: Knee DESHAWN : ORTHOPAEDICS 01/12/2023 5520-M-500 / / [id number] Knee X3 Ins Pos Cs Sz5 9 - [id number] Implanted:Qty: 1 on 06/21/2018 by Sridhar Grant MD at OR [facility] Right: Knee DESHAWN : ORTHOPAEDICS 10/17/2022 5531-G-509 / / [id number] documented as of this encounter Advance Directives [...] patient or by statute hierarchy) Care Teams Treatment Specialist Relationship Specialty Start Date End Date Eddie Ruffin MD [address] [place] [address] PCP - General Family Medicine 07/18/14 documented as of this encounter
--- OUTSIDE RECORDS SUMMARY | 2024-07-27 13:19 | External Medical Summary | Summary of Care ---
Author Name Unknown Organization [facility] Address [address] [place] [address] Phone [phone] Care Team Providers Care Lithographic Etcher Name Role Phone Eddie Ruffin MD Primary Care Provider + Reason for Visit * Reason Comments NEW PATIENT * Evaluate & Treat - Unlimited Visits (Within 10 days (routine)) - Authorized Specialty Diagnoses / Procedures Referred By Contac t Referred To Contact Hematology/Oncology / Hematology Oncology Diagnoses Anemia, unspecified type Kana Somers PA-C [address] [place] [address] Referral ID Status Reason Start Date Expiration Date Visits Requested Visits Authorized [id number] Authorized Specialty Services Required 04/12/[phone] Encounter Details Date Type Department Care Team (Late st Contact Info) Description 04/18/2024 3:00 PM EDT Office Visit Hematology/Oncology State Eric Sherman [address] [place] [phone] Sy Dogn MD [address] [place] [address] Iron deficiency anemia, unspecified iron deficiency anemia [...] 3 Each 11 10/17/2023 Active Dexcom G7 Lumber Stacker Device Use to read blood glucose values [...] Extended Release 24 Hour (Imdur)Indications :Atherosclerosis of algaaciq coronary artery of algaaciq heart without angina pectoris TAKE 1 TABLET BY MOUTH IN THE MORNING 30 Tablet 12/02/2023 12/01/2024 Active Vitron-C 65-125 MG Oral [...] MCG/ACT Inhalation Aerosol Powder Breath Activated (umeclidinium Linden[place]) inhale ONE puff DAILY. 30 Each 7 [...] prep) 06/14 abnormal stress test--referred for CATH @[facility]--mild nonobstructive CAD> patent stent. Cont med mgmt 08/14 BRIGITTE- mod BPH 08/14 TTE normal EF, Gr I saavedra Dys, EGD-dilated Schatzki ring 06/13 PFT--normal spirometry with low norm obstructive index. No response to dilator. Normal diffusing. Some air trapping, suggestive flow patterns for obstruction. Acute. HTN, goal below 130/80 05/02/2012 Coronary atherosclerosis of algaaciq coronary kelby ry 03/06/2012 Overview: 1. S/p NSTEMI--CAD, NSTEMI , PCI with a bare metal stent to the OM1 on 02/03/12 at [facility] 2. Patent OM1 stent with mild nonobstructive CAD noted elsewhere via the 06/24/14 catheterization at [facility] following abnormal nuclear stress testing History [...] (current) use of insulin 08/08/2018 08/11/2022 [facility] (myocardial infarction) 07/03/2018 08/08/2018 Cataract, diabetic 07/03/2018 [...] airways disease. 2012 PFT-low normal 08/14 [facility]-upper lobe emphysema, possible basilar fibrosis Lung density on x-ray 06/04/20132013 Overview: 06/13 density -repeat CXR 1mo Overweight (BMI 25.0-29.9) 04/03/2013 0 04/28/2017 Cough 10/24/2012 05/25/2013 Acute bronchitis, antibiotics not indicated 10/11/2012 05/25/2013 Impacted cerumen 10/11/2012 04/28/2017 Dermatitis 10/11/2012 04/28/2017 HTN, goal below 140/80 03/20/201205/02 Overview: Per HTN Protocol #27. Dyslipidemia, goal LDL below 70 02/07/2012 08/11/2022 [employer] [facility] [facility] Other*[id number] 02/03/2012 09/07/2016 History of non-ST elevation myocardial [...] Sign Reading Time Taken Comments Blood Pressure 122/65 04/18/2024 2:52 PM EDT Pulse 71 04/18/2024 2:52 PM EDT Temperature 36.3 C (97.4 F) 04/18/2024 2:52 PM ED T Respiratory Rate - - Oxygen Saturation 94% 04/18/2024 2:52 PM EDT Inhaled Oxygen Concentration - - Weight 90.7 kg (200 lb) 04/18/2024 2:52 PM EDT Height - - Body Mass Index 29.53 02/17/2023 2:22 PM EDT documented in this encounter Functional [...] as of this encounter Progress Notes * Sy Dong MD - 04/18/2024 3:00 PM EDT Outpatient Consult Note Data Source: Patient, Epic record. 04/18/2024 3:00 PM Kaden Badillo [id number] 73 year old MD Eddie Gomez MD Patient Encounter: HEMATOLOGY/ONCOLOGY [facility] Reason for consult: Anemia, for further treatment HPI: 73 - year old male referred for anemia. Past medical history significant for DM type II, DLD, HTN, pulmonary fibrosis, CHF, intracranial hemorrhage requiring craniotomy in 2007, tobacco abuse,Intolerant of oral iron referred for the management of anemia. Recent blood test were done on 04/16/2024 which shows WBC count of 8.3, hemoglobin 11.3 and platelet count 203, MCV and RDW were normal. Ferritin is 37 with low iron, transferrin saturation and high iron binding capacity consistent with iron deficiency anemia. Rest of the anemia workup including folic acid, vitamin B12, LDH and retic count were all within normal range. Serum immunofixation was negative for monoclonal gammopathy. Creatinine was 1.2 and the rest of the electrolytes were within acceptable range. Taking vitamin b12 1,000 mcg PO daily. Last colonoscopy 2017 . He also has issues with the prostate enlarged and bladder problem and incontinence. Is complaining of episode of nausea but no vomiting. Denies any headache, dizziness, blurred vision, chest pain, palpitation abdominal pain or distention, nausea, vomiting, fever night sweats, weight loss, hematuria, hematochezia. In the past he has tried iron tablets and had issues with the abdominal pain and constipation. Last colonoscopy was done on 03/22/2018 which revealed 5 mm polyp which was resected and there was diverticulosis in the sigmoid colon. Pathology from polyp was consistent with tubular adenoma. He quit smoking about 30 years ago. He used to smoke 1 pack per day for over 20 years. He is also chewing tobacco for last 10 years. Family history is negative for any hematologic Oncology problem. Past Medical History: Diagnosis Date Arthritis of right knee 01/26/2018 Benign neoplasm of colon 09/18/2012 adenom polyps - repeat 3y Chronic 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 11/11/2018 Complex tear of meniscus of right knee as current injury 01/26/2018 CTS (carpal tunnel syndrome) 01/10/2014 Deviated nasal septum 2006 DIAB NEURO MANIF ADULT 06/13/2008 DM type 2, goal A1c below 7 05/15/2009 Dyslipidemia 08/11/2022 Dyslipidemia, goal LDL below 100 07/15/2009 ANKITA (generalized anxiety disorder) 07/29/2017 HTN, goal below 130/80 08/27/2009 Impacted cerumen 2006 Lumbar back pain 11/11/2018 Lumbar degenerative disc disease 08/11/2022 MEDICATION USE AGREEMENT 04/09/2016 Nephritis and nephropathy, not specified as acute or chronic, with other specified pathological lesion in kidney, in diseases classified elsewhere 02/11/2015 Orthostatic hypotension 08/13/2022 Other acute otitis externa 2006 Other diseases of nasal cavity and sinuses(478.19) 2006 Other dyspnea and respiratory abnormality 2006 Pulmonary fibrosis ([facility]) 08/06/2022 S/P biventricular cardiac pacemaker procedure Schatzki's ring Sensorineural hearing loss, bilateral 2006 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 Nitroglycerin 0.6 MG Sublingual Tablet Sublingual (Nitrostat) Place 1 Tablet under the tongue every5 minutes as needed. Fluocinolone Acetonide Scalp 0.01 % External Oil [...] of Breath or Wheezing.) 18 g 2 Fleet Liquid Glycerin Supp 5.4 GM/DOSE Rectal Enema (Glycerin (Laxative)) Administer into the rectum. EQ Fiber Powder Oral Powder Take by mouth. Magnesium Oxide -Mg Supplement 400 (240 Mg) [...] E 11.9 3 Each 11 Dexcom G7 Lumber Stacker Device Use to read blood glucose values with dexcom G7 sensor E 11.9 1 Each 0 Insulin Glargine 100 UNIT/ML Subcutaneous Solution (Lantus) INJECT 55 UNITS UNDER THE SKIN AT BEDTIME 50 mL 1 Isosorbide Mononitrate ER 30 MG Oral Tablet [...] not start until 12/21/23. 100 Tablet 3 LORazepam 1 MG Oral Tablet (Ativan) TAKE 1 TABLET BY MOUTH UP TO TWICE DAILY FOR ANXIETY/INSOMNIA. 60 Tablet 5 glipiZIDE 10 MG Oral Tablet (Glucotrol) Take 1 Tablet by mouth in the morning 30 minutes before a meal. 30 Tablet 5 Pantoprazole Sodium 40 MG Oral Tablet Delayed Release (Protonix) TAKE 1 TABLET BY MOUTH DAILY. 90 Tablet 3 Incruse Ellipta 62.5 MCG/ACT Inhalation Aerosol Powder Breath Activated (umeclidinium [place]) inhale ONE puff DAILY. 30 Each 7 [...] asneeded (Pain--apply to knees). 300 g 5 HYDROcodone-Acetaminophen 5-325 MG Oral Tablet Take 1 Tablet by mouth every 6 hours as needed for Mild pain 60 Tablet 0 Finasteride 5 MG Oral Tablet (Proscar) Take 1 Tablet by mouth in the morning. 90 Tablet 3 Carvedilol 3.125 MG Oral Tablet (Coreg) Take [...] MORNING AND EVENING MEALS. 180 Tablet 3 No current facility-administered medications for this visit. 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 Occupation: worked 32y, different jobs there. 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 Vaping Use Vaping status: Never Used Substance and Sexual Activity Alcohol use: No Comment: quit in 1992, had been heavy drinker Drug use: No Sexual activity: Yes Partners: Female Comment: . 1 daughter, 1 son, 2 granddaughter, 1 stepson w/ 2 greatnephews. Other Topics Concern Not on file Social History Narrative Grand daughter in [place]. Social Determinants of Health Financial Resource Strain: Not on file Food Insecurity: Not on file Transportation Needs: Not on file Social Connections: Unknown (01/17/2024) Social Connections How often do you feel lonely or isolated from those around you? (Adult - for ages 18 years and over): Not on file Housing Stability: Not on file Family History Problem Relation Name Age of Onset Mental Disorder Mother dementia, 92 Heart Disorder Father AAA - age 74 No Known Problems Sister Ellyn No Known Problems Sister Latia not in touch. COPD Brother 74 Heart attack Brother 75 Rheum arthritis Brother Diabetes Grandmother (Maternal) Diabetes Son REVIEW OF SYSTEMS: General: No Fever, chills, night sweats, or weight loss. HEENT: No change in visual acuity, blurred or double vision. No epistaxis, facial pain, nasal discharge or change in hearing. Denies dysphagia, no muscosal ulceration, or sores noted. Cardiovascular: No chest pain, NAQVI, or palpitations Respiratory: No shortness of breath, cough, hemoptysis, or pleuritic chest pain Gastrointestinal: No abdominal pain, nausea, vomiting, diarrhea, rectal pain or bleeding Genitourinary: Denies Hematuria or dysuria Musculoskeletal: Joint pain Psychiatric: No vegetative signs of depression Endocrine: No symptoms of hypothyroidism or hyperglycemia Hematologic: No bleeding or lymph nodes noted As mentioned above, all other systems were reviewed in full and are unremarkable. Review of patient's allergies indicates: Allergen Reactions Formoterol Other reaction(s): RASH Simvastatin Other reaction(s): RASH Penicillins Other (Please comment) Family hx allergic reaction Lisinopril Cough PHYSICAL EXAMINATION: General Appearance: Healthy appearing patient in no acute distress BP 122/65 (BP Site: Left Arm, BP Position: Sitting, BP Cuff Size: Regular) | Pulse 71 | Temp 36.3 C (97.4 F) (Tympanic) | Wt 90.7 kg (200 lb) | SpO2 94% | BMI 29.53 kg/m | BSA 2.1 m Vitals were reviewed. HEENT: No oral or pharyngeal masses, ulceration or thrush noted, no sinus tenderness. Neck is supple with no thyromegaly or JVD noted. Lymph Nodes: No lymphadenopathy noted in the occipital, pre and post auricular, cervical, supra andinfraclavicular, axillary, epitrochlear, inguinal, and popliteal region. Lungs/Thorax: Clear to auscultation, no accessory muscles of respiration being used. Heart: Regular rate and rhythm, normal S1, S2. Abdomen: Soft, nontender, bowel sounds present, no appreciable hepatosplenomegaly, no palpable masses Extremeties: Good pulses bilaterally, no peripheral edema. ASSESSMENT: 73-year-old male with a complicated past medical history including DM type II, DLD, HTN, pulmonary fibrosis, CHF, intracranial hemorrhage requiring craniotomy in 2007, tobacco abuse,Intolerant of oral iron referred for the management of anemia. Overall clinically he is stable. He is complaining generalized weakness and fatigue. Last colonoscopy was done in 2018 which revealed diverticulosis. Recent blood test result consistent with the irondeficiency anemia with low iron, low transferrin saturation and high iron binding capacity. He has issues of constipation and abdominal discomfort with iron tablets. He can benefit with the monoferric iron infusion. Discussed with the patient and about the diagnosis and reviewed all the available blood test result with them. Discussed with them about the benefit, risk, side effects toxicity of the infusion.After discussion he agreed to proceed with the treatment. PLAN: As above. He will return clinic for follow-up in 3 months with CBC, CMP, ferritin and iron screen. The patient voiced understanding of all of the above. All questions and concerns were addressed in an apparently satisfactory manner. Sy Dong MD (This note was completed using the dictation program Fluency Direct. As such, there may be misspellings, word substitutions, or other variations that should not change the essence of the clinical content of this encounter note. If there is need for further clarification, please direct questions to me.) documented in this encounter Nursing Notes * Tamie Cochran MED ASSIST - 04/18/2024 2:55 PM EDT Patient identifed by name and birthdate Do you have any concerns about pain management for today's visit? Yes. Patient instructed to discuss pain concerns with provider during the visit today Living Will or Advance Directive for Health Care as noted on the problem list. [facility] is a way you can talk to your provider on line through e-mail. Would you like to sign up? I can activate it for you? ALREADY ACTIVE Filed Vitals: 04/18/24 1452 BP: 122/65 Pulse: 71 Temp: 36.3 C (97.4 F) TempSrc: Tympanic SpO2: 94% Weight: 90.7 kg (200 lb) Patient was instructed to not get up on the exam table/exam chair until directed and assisted by their provider; patient is to remain seated in the chair/ wheelchair/ exam table/ exam chair for fall prevention and safety reasons. Patient is aware to have assistance to step down off exam table/exam chair with personnel. Patient voiced full comprehension of instructions. Pt states he has at least 4 falls per week. Reports he has dizziness, lightheadedness, along with nausea. documented in this encounter Plan of Treatment Upcoming Encounters Date Type Department Care Team (Late st Contact Info) Description 05/01/2024 2:40 PM EDT Office Visit Family Practice [facility] [address] [address] Eddie Ruffin MD [address] [address] 06/26/2024 3:30 PM EST Office Visit Cardiology, [facility] [address] [address] Malathi Newman PA-C [address] [address] 07/03/2024 2:25 PM EST Office Visit Hematology/Oncology [facility] [address] [facility] [place] [phone] Sy Dong MD [address] [facility] [place] [address] 07/17/2024 3:20 PM EST Office Visit [facility] [address] [facility] [address] [address] Eddie Ruffin MD [address] [facility] [address] 08/27/2024 2:45 PM EST Office Visit Urology, [facility] [address] [facility] [address] [address] Valentín Sampson MD [address] [place] [address] 10/19/2024 2:00 PM EDT Office Visit [facility] [address] [facility] [address] [place] [address] Eddie Ruffin MD [address] [facility] [address] [place] [address] Scheduled Orders Name Type Priority Associated Diagnoses Orde r Schedule CBC WITH WBC DIFFERENTIAL Lab Routine Iron deficiency anemia, unspecified iron deficiency anemia type Expected: 07/09/2024, Expires: 11/21/2024 COMPREHENSIVE METABOLIC PANEL Lab Routine Iron deficiency anemia, unspecified iron deficiency anemia type Expected: 07/09/2024, Expires: 11/21/2024 FERRITIN Lab Routine Iron deficiency anemia, unspecified iron deficiency anemia type Expected: 07/09/2024, Expires: 11/21/2024 IRON SCREEN, INCLUDING TIBC Lab Routine Iron deficiency anemia, unspecified iron deficiency anemia type Expected: 07/09/2024, Expires: 11/21/2024 Health Maintenance Due Date Last Done Comments [...] 07/02/2021, Additional history exists HbA1c 10/08/2024 04/10/2024, 043 , 06/28/2023, Additional history exists GFR 04/10/2025 [...] this encounter Medical Devices Implanted Type Area Relay Technician Device Identifier Shelf Expiration Date Model / Serial / Lot Cement Antibiotic Bone - [id number] Implanted:Qty: 2 on 06/21/2018 by Sridhar Grant MD at OR [facility] Right: Knee DESHAWN : [employer] 12/29/2018 [id number] / / [id number] Triathlon Asyetric X3 Patell - [id number] Implanted:Qty: 1 on 06/21/2018 by Sridhar Grant MD at OR [facility] Right: Knee DESHAWN : ORTHOPA[employer] 03/15/2023 [id number] / / [id number] Component Femoral Rt Size 5 T - [id number] Implanted:Qty: 1 on 06/21/2018 by Sridhar Grant MD at OR [facility] Right: Knee DESHAWN : ORTH[employer] 12/10/2022 [id number] / / [id number] Knee Baseplate Mis Tib Tri 5 - [id number] Implanted:Qty: 1 on 06/21/2018 by Sridhar Grant MD at OR [facility] Right: Knee DESHAWN : ORTHOPA[employer] 01/12/2023 [id number] / / [id number] Knee X3 Ins Pos Cs Sz5 9 - [id number] Implanted:Qty: 1 on 06/21/2018 by Sridhar Grant MD at OR [facility] Right: Knee DESHAWN : ORTHOPA[employer] 10/17/2022 [id number] / / [id number] documented as of this encounter Visit Diagnoses Diagnosis Iron deficiency anemia, unspecified iron deficiency anemia type- Primary documented in this encounter Advance [...] patient or by statute hierarchy) Care Teams Lithographic Etcher Relationship Specialty Start Date End Date Eddie Ruffin MD [address] [facility] [address] [place] [address] PCP - General Family Medicine 07/18/14 documented as of this encounter
--- OUTSIDE RECORDS SUMMARY | 2024-07-27 13:19 | External Medical Summary | Summary of Care ---
Author Name Unknown Organization [facility] Address [address] [place] [address] Phone [phone] Care Team Providers Care Probation And Parole Officer Name Role Phone Eddie Ruffin MD Primary Care Provider + Reason for Visit * Reason Onset Date Comments Appointment 04/17/2024 Encounter Details Date Type Department Care Team (Late st Contact Info) Description 04/17/2024 Telephone Hematology/Oncology [facility] [address] [facility] [place] [address] Trena Reid CRNP [address] [place] [address] Appointment Allergies Active Allergy Reactions [...] 3 Each 11 10/17/2023 Active Dexcom G7 Small Battery Plate Assembler Device Use to read blood glucose values with dexcom G7 sensor E 11.9 1 Each 10/17/2023 Active Insulin Glargine 100 UNIT/ML Subcutaneous Solution (Lantus)Indication s:Type 2 diabetes mellitus with hemoglobin A1c goal of less than 8.0% ([facility]) INJECT 55 UNITS UNDER THE SKIN AT [...] than 8.0% ([facility]) Take 1 Tablet by mouth in the morning 30 minutes before a meal. 30 Tablet 5 12/30/2023 Active Pantoprazole Sodium 40 MG Oral Tablet Delayed Release (Protonix)Indicati ons:Esophageal obstruction TAKE 1 TABLET BY MOUTH DAILY. 90 Tablet 3 01/03/2024 Active Incruse Ellipta 62.5 MCG/ACT Inhalation Aerosol Powder Breath Activated (umeclidinium [place]) inhale ONE puff DAILY. 30 Each 7 [...] - LAMA Self-Management plan o Other: call [facility] Exacerbation plan o Has not required [...] prep) 06/14 abnormal stress test--ref[place]mild nonobstructive CAD> patent stent. Cont med mgmt [...] the OM1 on 02/03/12 at [facility] 2. Patent OM1 stent with mild nonobstructive CAD noted elsewhere via the 06/24/14 catheterization at [facility] [place] abnormal nuclear stress testing History of [...] disease witho ut cerebral infarction 09/22/2018 08/11/2022 FDC (current) use of insulin 08/08/2018 08/11/2022 Old [...] airways disease. 2012 PFT-low normal 08/14 [facility]-upper lobe emphysema, possible basilar fibrosis Lung density on x-ray 06/04/20132013 Overview: 06/13 density -repeat CXR 1mo Overweight (BMI 25.0-29.9) 04/03/2013 0 04/28/2017 Cough 10/24/2012 05/25/2013 Acute bronchitis, antibiotics not indicated 10/11/2012 05/25/2013 Impacted cerumen 10/11/2012 04/28/2017 Dermatitis 10/11/2012 04/28/2017 HTN, goal below 140/80 03/20/201205/02 Overview: Per HTN Protocol #27. Dyslipidemia, goal LDL below 70 02/07/2012 08/11/2022 [facility] [employer] Other*[id number] 02/03/2012 09/07/2016 History of non-ST elevation myocardial [...] 04/18/2024 3:00 PM EDT Office [facility] [place] [address] [facility] [place] [address] Sy Dong MD 200 [facility] [place] [address] 05/01/2024 2:40 PM EDT Office Visit [facility] [address] [place] [address] Eddie Ruffin MD [address] [place] [address] 06/26/2024 3:30 PM EST Office Visit Cardiology, [facility] [address] [place] [address] Malathi Newman PA-C [address] [place] [address] 07/17/2024 3:20 PM EST Office Visit [facility] [address] [place] [address] Eddie Ruffin MD [address] [place] [address] 08/27/2024 2:45 PM EST Office Visit Urology, [facility] [address] [place] [address] Valentín Sampson MD [address] [place] [address] 10/19/2024 2:00 PM EDT Office Visit Family Practice [facility] [address] [place] [address] Eddie Ruffin MD [address] [place] [address] Health Maintenance Due Date Last Done Comments [...] FOR COPD 01/12/2025 01/13/2024 GFR 04/10/2025 04/10/2024, 11/01, 06/28/2023, Additional history exists DTap/Tdap Vaccines (3 [...] this encounter Medical Devices Implanted Type Area Overlock Collar Setter Device Identifier Shelf Expiration Date Model / Serial / Lot Cement Antibiotic Bone - [id number] Implanted:Qty: 2 on 06/21/2018 by Sridhar Grant MD at [place] [facility] Right: Knee DESHAWN : ORTHOPAEDICS 12/29/2018 6197-9-010 / / [id number] Triathlon Asyetric X3 Patell - [id number] Implanted:Qty: 1 on 06/21/2018 by Sridhar Grant MD at [place] [facility] Right: Knee DESHAWN : ORTHOPAEDICS 03/15/2023 5551-G-350 / / [id number] Component Femoral Rt Size 5 T - [id number] Implanted:Qty: 1 on 06/21/2018 by Sridhar Grant MD at [place] [facility] Right: Knee DESHAWN : ORTHOPAEDICS 12/10/2022 5510-F-502 / / [id number] Knee Baseplate Mis Tib Tri 5 - [id number] Implanted:Qty: 1 on 06/21/2018 by Sridhar Grant MD at [place] [facility] Right: Knee DESHAWN : ORTHOPAEDICS 01/12/2023 5520-M-500 / / [id number] Knee X3 Ins Pos Cs Sz5 9 - [id number] Implanted:Qty: 1 on 06/21/2018 by Sridhra Grant MD at [place] [facility] Right: Knee DESHAWN : ORTHOPAEDICS 10/17/2022 5531-G-509 / / [id number] documented as of this encounter Advance Directives [...] patient or by statute hierarchy) Care Teams Probation And Parole Officer Relationship Specialty Start Date End Date Eddie Ruffin MD [address] [place] [address] PCP - General Family Medicine 07/18/14 documented as of this encounter
--- OUTSIDE RECORDS SUMMARY | 2024-07-27 13:20 | External Medical Summary | Summary of Care ---
Author Name Unknown Organization [facility] Address [address] [place] [address] Phone [phone] Care Team Providers Care Golf Course Keeper Name Role Phone Eddie Ruffin MD Primary Care Provider + Reason for Visit * Reason Onset Date Comments Referral 04/12/2024 SP 10-Day Encounter Details Date Type Department Care Team (Late st Contact Info) Description 04/12/2024 New Patient Triage (PUBLIC RELATIONS SENIOR ASSOCIATE USE ONLY) Hematology/Oncology [facility] 200 [facility] [place] [address] Trena Reid CRNP [address] [place] [address] Referral (SP 10-Day) Allergies Active Allergy Reactions Criticality Noted Date Comments Formoterol High 02/16/2022 Other reaction(s): RASH Lisinopril Cough Low 10/24/2012 Penicillins Other (Please comment) 08/15/2013 Family hx allergic reaction Simvastatin High 02/16/2022 Other reaction(s): RASH documented as of this encounter (statuses as of 04/13/2024) Medications Medication Sig Dispensed Refills Start Date [...] before bedtime. 180 Tablet 3 01/20/2023 Active metFORMIN HCl 1000 MG Oral Tablet (Glucophage)Indica tions:DM type 2 causing neurological disease (HCC) TAKE 1 TABLET BY MOUTH TWICE DAILY WITH MORNING AND EVENING MEALS. 180 Tablet 3 04/19/2023 04/24/2024 Active Vitamin B-12 1000 MCG Oral Tablet (Cyanocobalamin)In dications:B12 deficiency Take 1 Tablet by mouth in the morning. 100 Tablet 3 04/18/2023 Active Polyethylene Glycol 3350 17 GM/SCOOP Oral Powder (GNP ClearLax) USE 1 CAPFUL UP TO 3 TIMES DAILY FOR CONSTIPATION 238 g 11 07/01/2023 Active Sertraline HCl 100 MG Oral Tablet (Zoloft)Indication s:ANKITA (generalized anxiety disorder),Dysthymi a Take 1.5 Tablets by mouth in the morning. 45 Tablet 5 07/01/2023 Active Dexcom G7 Sensor Use 1 sensor every 10 days E 11.9 3 Each 11 10/17/2023 Active Dexcom G7 Ballast Cleaning Machine Operator Device Use to read blood glucose [...] Extended Release 24 Hour (Imdur)Indications :Atherosclerosis of [place] coronary artery of [place] heart without angina pectoris TAKE 1 [...] MCG/ACT Inhalation Aerosol Powder Breath Activated (umeclidinium [place]) inhale ONE puff DAILY. 30 Each 7 [...] with food. 60 Tablet 11 04/11/2024 Active documented as of this encounter (statuses as of 04/13/2024) Active Problems Problem Noted Date Diagnosed Date [...] - LAMA Self-Management plan o Other: call [facility] Exacerbation plan o Has not [...] 06/14 abnormal stress test--referred for CATH @[facility]--mild nonobstructive CAD> patent stent. Cont med mgmt 08/14 BRIGITTE- mod BPH 08/14 TTE normal EF, Gr I saavedra Dys, EGD-dilated Schatzki ring 06/13 PFT--normal spirometry with low norm obstructive index. No response to dilator. Normal diffusing. Some air trapping, suggestive flow patterns for obstruction. Acute. HTN, goal below 130/80 05/02/2012 Coronary atherosclerosis of [place] coronary kelby ry 03/06/2012 Overview: 1. S/p NSTEMI--CAD, NSTEMI , PCI with a bare metal stent to the OM1 on 02/03/12 at [facility] 2. Patent OM1 stent with mild nonobstructive CAD noted elsewhere via the 06/24/14 catheterization at [facility] following abnormal nuclear stress [...] as of this encounter (statuses as of 04/13/2024) Resolved Problems Problem Noted Date Diagnosed Date [...] 2012 PFT-low normal 08/14 [facility]-upper lobe emphysema, possible basilar fibrosis Lung density on x-ray 06/04/20132013 Overview: 06/13 density -repeat CXR 1mo Overweight (BMI 25.0-29.9) 04/03/2013 0 04/28/2017 Cough 10/24/2012 05/25/2013 Acute bronchitis, antibiotics not indicated 10/11/2012 05/25/2013 Impacted cerumen 10/11/2012 04/28/2017 Dermatitis 10/11/2012 04/28/2017 HTN, goal below 140/80 03/20/201205/02 Overview: Per HTN Protocol #27. Dyslipidemia, goal LDL below 70 02/07/2012 08/11/2022 [facility] [facility] Other*[id number] 02/03/2012 09/07/2016 History of non-ST elevation myocardial [...] as of this encounter (statuses as of 04/13/2024) Immunizations Name Administration Dates Next Due COVID-19 [...] as of this encounter Progress Notes * Amandeep Mosley LPN - 04/13/2024 11:57 AM EDT Discussed care plan with patient or proxy?: Yes Spoke with patient's Gabi. She accepted offer for appointment on 04/18/2024 at 3:[address] Dong, she states patient is agreeable to having labwork done prior to the appointment. Provided her with directions to SP office and provided office telephone number. She denies any questions and verbalized understanding. Communicated with patient on Date (mm/dd/yyyy): 04/13/2024 at Time ([facility] 11:58 AM Additional imaging needed: No Additional imaging orders pended: No Further labs recommended and ordered: Yes Bone Marrow biopsy recommended:No [facility] clinic review recommended: No * Trena Reid CRNP - 04/12/2024 5:09 PM EDT Hematology New Referral Triage Note 73 y/o male referred for anemia. PMH of DM type II, DLD, HTN, pulmonary fibrosis, CHF, intracranialhemorrhage requiring craniotomy in 2007, tobacco abuse. Intolerant of oral iron. Hgb declining overthe last two years. Most recently Hgb 11 with normocytic indices. No abnormalities in other cell lines. No renal insufficiency noted. No current iron studies available for review. Taking vitamin b12 1,000 mcg PO daily. Last colonoscopy 2017. Recommended to repeat in five years. Timeframe to be seen: 10 days Can the patient be seen by an advanced practitioner? yes Are additional labs or studies needed prior to initial visit? Yes - CBCd, iron screen, ferritin, retic panel, ldh, vitamin b12 and folic acid Is an infusion appointment needed after initial visit? Await lab results. If iron studies reveal a deficiency will order IV iron therapy to be completed after new patient appointment. Discussed care plan with patient or proxy?: No Nurse to call. Previously seen hematology? No KAYLAH Cee Hematology * Amandeep Mosley LPN - 04/12/2024 3:52 PM EDT Images from the original note were not included. New Patient Triage What is the diagnosis/reason for referral?: Anemia Enter order ID here: [id number] Specialty specific documentation: Hematology/Oncology NEW PATIENT - HEMATOLOGY/ONCOLOGY SPECIALTY TRIAGE Triage needed?: Yes Referring provider name: Kana Somers PA-C Confirmation of diagnosis: No TRIAGE PLAN: Baseline/staging imaging complete: No Labs available: Yes Referral to other specialty recommended (ie. Surgery, outpatient infusion): No Additional triage comments: Please see TE 04/12/2024 under Betito Somers PA-C documented in this encounter Miscellaneous Notes * Addendum Note - Amandeep Mosley LPN - 04/13/2024 12:09 PM EDTAddended by: AMANDEEP MOSLEY on: 04/13/2024 12:09 PM Modules accepted: Orders documented in this encounter Plan of Treatment Upcoming Encounters Date Type Department Care Team (Late st Contact Info) Description 04/18/2024 3:00 PM EDT Office Visit Hematology/Oncology [facility] [place] 200 [facility] [place] [address] Sy Dong MD 200 [facility] [place] [address] 05/01/2024 2:40 PM EDT Office Visit [facility] [address] [place] [address] Eddie Ruffin MD [address] [place] [address] 06/26/2024 3:30 PM EST Office Visit Cardiology, [facility] [address] [place] [address] Malathi Newman PA-C [address] [place] [address] 07/17/2024 3:20 PM EST Office Visit [facility] [place] [address] Eddie Ruffin MD [address] [place] [address] 08/27/2024 2:45 PM EST Office Visit Urology, [facility] [place] [address] Valentín Sampson MD [address] [place] [address] 10/19/2024 2:00 PM EDT Office Visit Family Practice [facility] 132 [facility] [place] [address] Eddie Ruffin MD [address] [place] [address] Scheduled Orders Name Type Priority Associated Diagnoses Orde r Schedule CBC WITH WBC DIFFERENTIAL Lab Routine Anemia, unspecified type Expected: 04/13/2024 (Approximate), Expires: 07/01/2024 IRON SCREEN, INCLUDING TIBC Lab Routine Anemia, unspecified type Expected: 04/13/2024 (Approximate), Expires: 07/01/2024 FERRITIN Lab Routine Anemia, unspecified type Expected: 04/13/2024 (Approximate), Expires: 07/01/2024 RETICULOCYTE PANEL Lab Routine Anemia, unspecified type Expected: 04/13/2024 (Approximate), Expires: 07/01/2024 LD Lab Routine Anemia, unspecified type Expected: 04/13/2024 (Approximate), Expires: 07/01/2024 VITAMIN B12 Lab Routine Erythrocytosis Anemia, unspecified type Expected: 04/13/2024 (Approximate), Expires: 07/01/2024 FOLIC ACID Lab Routine Erythrocytosis Anemia, unspecified type Expected: 04/13/2024 (Approximate), Expires: 07/01/2024 Health Maintenance Due Date Last Done Comments [...] this encounter Medical Devices Implanted Type Area Metal Forger'S Assistant Device Identifier Shelf Expiration Date Model / Serial / Lot Cement Antibiotic Bone - [id number] Implanted:Qty: 2 on 06/21/2018 by Sridhar Grant MD at OR [facility] Right: Knee DESHAWN : ORTHOPAEDICS 12/29/2018 6197-9-010 / / [id number] Triathlon Asyetric X3 Patell - [id number] Implanted:Qty: 1 on 06/21/2018 by Sridhar Grant MD at OR [facility] Right: Knee DESHAWN : ORTHOPAEDICS 03/15/2023 5551-G-350 / / [id number] Component Femoral Rt Size 5 T - [id number] Implanted:Qty: 1 on 06/21/2018 by Sridhar Grant MD at OR [facility] Right: Knee DESHAWN : ORTHOPAEDICS 12/10/2022 5510-F-502 / / [id number] Knee Baseplate Mis Tib Tri 5 - [id number] Implanted:Qty: 1 on 06/21/2018 by Sridhar Grant MD at OR [facility] Right: Knee DESHAWN : ORTHOPAEDICS 01/12/2023 5520-M-500 / / [id number] Knee X3 Ins Pos Cs Sz5 9 - [id number] Implanted:Qty: 1 on 06/21/2018 by Sridhar Grant MD at OR [facility] Right: Knee DESHAWN : ORTHOPAEDICS 10/17/2022 5531-G-509 / / [id number] documented as of this encounter Visit Diagnoses Diagnosis Anemia, unspecified type- Primary Thrombocytopenia, congenital and hereditary (HCC) Congenital and hereditary thrombocytopenic purpura Erythrocytosis Polycythemia, secondary Encounter for long-term (current) use of medications Encounter for long-term (current) use of other medications documented in this encounter Advance Directives * [...] patient or by statute hierarchy) Care Teams Golf Course Keeper Relationship Specialty Start Date End Date Eddie Ruffin MD [address] [place] [address] PCP - General Family Medicine 07/18/14 documented as of this encounter
--- OUTSIDE RECORDS SUMMARY | 2024-07-27 13:20 | External Medical Summary | Summary of Care ---
Author Name Unknown Organization [facility] Address [address] [place] [address] Phone [phone] Care Team Providers Care Chief Data Officer Name Role Phone Eddie Ho MD Primary Care Provider + Reason for Visit * Reason Comments Medication Refill Encounter Details Date Type Department Care Team (Late st Contact Info) Description 04/13/2024 Refill Family Practice [facility] [address] [place] [address] Charles King, [address] [place] [address] DM type 2 causing neurological disease (HCC) Allergies Active Allergy Reactions Criticality Noted Date Comments Formoterol High 02/16/2022 Other reaction(s): RASH Lisinopril Cough Low 10/24/2012 Penicillins Other (Please comment) 08/15/2013 Family hx allergic reaction Simvastatin High 02/16/2022 Other reaction(s): RASH documented as of this encounter (statuses as of 04/16/2024) Medications Medication Sig Dispensed Refills Start Date [...] 3 Each 11 10/17/2023 Active Dexcom G7 Red Cap Device Use to read blood glucose values [...] Extended Release 24 Hour (Imdur)Indication s:Atherosclerosis of [place] coronary artery of [place] heart without angina pectoris TAKE [...] hemoglobin A1c goal of less than 8.0% ([facility]) Take 1 Tablet by mouth in the morning 30 minutes before a meal. 30 Tablet 5 12/30/2023 Active Pantoprazole Sodium 40 MG Oral Tablet Delayed Release (Protonix)Indicat ions:Esophageal obstruction TAKE 1 TABLET BY MOUTH DAILY. 90 Tablet 3 01/03/2024 Active Incruse Ellipta 62.5 MCG/ACT Inhalation Aerosol Powder Breath Activated (umeclidinium [place]) inhale ONE puff DAILY. 30 Each 7 [...] MEALS. 180 Tablet 3 04/16/2024 5 Active metFORMIN HCl 1000 MG Oral Tablet (Glucophage)Indic ations:DM type 2 causing neurological disease (HCC) TAKE 1 TABLET BY MOUTH TWICE DAILY WITH MORNING AND EVENING MEALS. 180 Tablet 3 04/19/2023 4 Discontinue d(Refill) documented as of this encounter (statuses as of 04/16/2024) Active Problems Problem Noted Date Diagnosed Date [...] - LAMA Self-Management plan o Other: call [facility] Exacerbation plan o Has not [...] prep) 06/14 abnormal stress test--ref[place]mild nonobstructive CAD> patent stent. Cont med mgmt 08/14 BRIGITTE- mod BPH 08/14 TTE normal EF, Gr I saavedra Dys, EGD-dilated Schatzki ring 06/13 PFT--normal spirometry with low norm obstructive index. No response to dilator. Normal diffusing. Some air trapping, suggestive flow patterns for obstruction. Acute. HTN, goal below 130/80 05/02/2012 Coronary atherosclerosis of [place] coronary kelby ry 03/06/2012 Overview: 1. S/p NSTEMI--CAD, NSTEMI , PCI with a bare metal stent to the OM1 on 02/03/12 at [facility] 2. 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 Stable orthostatics today. Following with cardiology with issao monitoring. Advised to report to ED with [...] witho ut cerebral infarction 09/22/2018 08/11/2022 terminal block assembler (current) use of insulin 08/08/2018 08/11/2022 Old [...] below 70 02/07/2012 08/11/2022 [facility] [facility] Other*[id number] 02/03/2012 09/07/2016 History of non-ST elevation myocardial [...] as of this encounter (statuses as of 04/16/2024) Immunizations Name Administration Dates Next Due COVID-19 [...] encounter Miscellaneous Notes * Telephone Encounter - Melissa Camejo [facility] - 04/16/2024 9:56 AM EDTSigned Prescriptions: Disp Refills metFORMIN HCl 1000 MG Oral Tablet (Glucoph*180 Ta*3 Sig: TAKE 1 TABLET BY MOUTH TWICE DAILY WITH MORNING AND EVENING MEALS.Authorizing Provider: EDDIE HOOrderbonnie User: MELISSA CAMEJO documented in this encounter Plan of Treatment Upcoming Encounters Date Type Department Care Team (Late st Contact Info) Description 04/18/2024 3:00 PM EDT Office Visit Hematology/Oncology [facility] [address] [facility] [place] [phone] Sy Dong MD [address] [facility] [place] [address] 05/01/2024 2:40 PM EDT Office Visit [facility] [address] [place] [address] Eddie Ho MD [address] [place] [address] 06/26/2024 3:30 PM EST Office Visit Cardiology, [facility] [address] [address] Malathi Newman PA-C [address] [place] [address] 07/17/2024 3:20 PM EST Office Visit [facility] [address] [address] Eddie Ho MD [address] [place] [address] 08/27/2024 2:45 PM EST Office Visit Urology, [facility] [address] [place] [address] Valentín Sampson MD [address] [place] [address] 10/19/2024 2:00 PM EDT Office Visit Family Practice [facility] [address] [place] [address] Eddie Ho MD [address] [place] [address] Health Maintenance Due Date Last Done Comments [...] FOR COPD 01/12/2025 01/13/2024 GFR 04/10/2025 04/10/2024, /, 06/28/2023, Additional history exists DTap/Tdap Vaccines (3 [...] this encounter Medical Devices Implanted Type Area Rivet Hole Machine Operator Device Identifier Shelf Expiration Date Model / Serial / Lot Cement Antibiotic Bone - [id number] Implanted:Qty: 2 on 06/21/2018 by Sridhar Grant MD [place] [facility] Right: Knee DESHAWN : ORTHOPAEDICS 12/29/2018 6197-9-010 / / [id number] Triathlon Asyetric X3 Patell - [id number] Implanted:Qty: 1 on 06/21/2018 by Sridhar Grant MD [place] [facility] Right: Knee DESHAWN : ORTHOPAEDICS 03/15/2023 5551-G-350 / / 1VE Component Femoral Rt Size 5 T - [id number] Implanted:Qty: 1 on 06/21/2018 by Sridhar Grant MD [place] [facility] Right: Knee DESHAWN : ORTHOPAEDICS 12/10/2022 5510-F-502 / / [id number] Knee Baseplate Mis Tib Tri 5 - [id number] Implanted:Qty: 1 on 06/21/2018 by Sridhar Grant MD [place] [facility] Right: Knee DESHAWN : ORTHOPAEDICS 01/12/2023 5520-M-500 / / [id number] Knee X3 Ins Pos Cs Sz5 9 - [id number] Implanted:Qty: 1 on 06/21/2018 by Sridhar Grant MD [place] [facility] Right: Knee DESHAWN : ORTHOPAEDICS 10/17/2022 5531-G-509 / / [id number] documented as of this encounter Visit Diagnoses Diagnosis DM type 2 causing neurological disease (HCC) Type II or unspecified type diabetes mellitus with neurological manifestations, not stated as uncontrolled documented in this encounter Advance Directives * [...] patient or by statute hierarchy) Care Teams Chief Data Officer Relationship Specialty Start Date End Date Eddie Ho MD [address] [place] [address] PCP - General Family Medicine 07/18/14 documented as of this encounter
--- OUTSIDE RECORDS SUMMARY | 2024-07-27 13:20 | External Medical Summary ---
Author Name Unknown Address Unknown Organization K01:LABORATORY [facility] [place] - [address] [place] [address] Laboratory Report Ordering Provider Test Date Status RICHELLE NATHAN 04/16/2024 13:02:24 Final Observation Date Value Abnormality Reference (Units ) Status Iron 04/16/2024 13:02:24 40 Below low normal 45-176 (ug/dL) Final Iron-binding capacity 04/16/2024 13:02:24 448 Above high normal 250-425 (ug/dL) Final Transferrin Sat % 04/16/2024 13:02:24 9 Below low normal 15-55 (%) Final Performing Location LABORATORY [facility] [place] - [address] [place] [address]
--- OUTSIDE RECORDS SUMMARY | 2024-07-27 13:20 | External Medical Summary ---
Author Name Unknown Address Unknown Organization K01:LAB[facility]ATORY [facility] - [address] [place] [address] Laboratory Report Ordering Provider Test Date Status RICHELLE NATHAN 04/16/2024 13:02:24 Final Observation Date Value Abnormality Reference (Units ) Status LDH 04/16/2024 13:02:24 106 <=250 (U/L ) Final Performing Location LAB[facility]ATORY [facility] - [address] [place] [address]
--- OUTSIDE RECORDS SUMMARY | 2024-07-27 13:20 | External Medical Summary ---
Author Name Unknown Address Unknown Organization K01:LABORATORY [facility] - [address] [place] [address] Laboratory Report Ordering Provider Test Date Status RICHELLE NATHAN 04/16/2024 13:02:24 Final Observation Date Value Abnormality Reference (Units ) Status Ferritin 04/16/2024 13:02:24 37 30-400 (ng /mL) Final Performing Location LAB[facility]ORY [facility] - [address] [place] [address]
--- OUTSIDE RECORDS SUMMARY | 2024-07-27 13:20 | External Medical Summary ---
Author Name Unknown Address Unknown Organization K0G[facility] [address] [place] [address] Laboratory Report Ordering Provider Test Date Status RICHELLE NATHAN 04/16/2024 13:02:24 Final Observation Date Value Abnormality Reference (Units ) Status WBC, Total 04/16/2024 13:02:24 8.38 4.00-10.8 0 (K/uL) Final RBC 04/16/2024 13:02:24 4.17 4.50-5.25 (M/uL) Final Hemoglobin 04/16/2024 13:02:24 11.3 Below low normal 14 .0-16.8 (g/dL) Final HCT 04/16/2024 13:02:24 36.2 Below low normal 40. 0-48.4 (%) Final MCV 04/16/2024 13:02:24 86.8 82.0-99.5 (fL) Final MCH 04/16/2024 13:02:24 27.1 27.0-34.0 (pg) Final MCHC 04/16/2024 13:02:24 31.2 32.0-36.0 (g/dL) Final RDW 04/16/2024 13:02:24 15.8 11.5-15.5 (%) Final Platelets 04/16/2024 13:02:24 203 140-400 (K /uL) Final MPV 04/16/2024 13:02:24 9.1 6.6-11.1 ( fL) Final Performing Location LABORATORY [facility] [place] [facility] 0 - [address] [place] [address]
--- OUTSIDE RECORDS SUMMARY | 2024-07-27 13:20 | External Medical Summary ---
Author Name Unknown Address Unknown Organization K0G[facility] [address] [place] [address] Laboratory Report Ordering Provider Test Date Status RICHELLE NATHAN 04/16/2024 13:02:24 Final Observation Date Value Abnormality Reference (Units ) Status SYNC LEUKOCYTES IN BLOOD BY AUTOMATED COUNT 04/16/2024 13:02:24 8.38 4.00-10.80 (K/uL) Final Segs 04/16/2024 13:02:24 61.6 40.0-75.0 (%) Final Lymphs % 04/16/2024 13:02:24 19.3 18.0-42.0 (%) Final Monos 04/16/2024 13:02:24 10.4 1.0-11.0 (%) Final Eosinophils 04/16/2024 13:02:24 7.9 Above high normal 0.0-6.0 (%) Final Basos 04/16/2024 13:02:24 0.8 0.0-2.0 (%) Final Absolute Segs 04/16/2024 13:02:24 5.16 1.80-7.70 (K/uL) Final Lymphs, absolute 04/16/2024 13:02:24 1.62 1.00-4.80 (K/ul) Final Monos, Abs 04/16/2024 13:02:24 0.87 0.00-1.10 (K/uL) Final Eos, Abs 04/16/2024 13:02:24 0.66 0.00-0.70 (K/uL) Final Basos, Abs 04/16/2024 13:02:24 0.07 0.00-0.20 (K/uL) Final Performing Location [facility] - [address] [place] [address]
--- OUTSIDE RECORDS SUMMARY | 2024-07-27 13:20 | External Medical Summary | Summary of Care ---
Author Name Unknown Organization [facility] Address [address] [place] [address] Phone [phone] Care Team Providers Care Budget Assistant Name Role Phone Eddie Ruffin MD Primary Care Provider + Reason for Visit * Reason Onset Date Comments Referral 04/12/2024 SP 10-Day Encounter Details Date Type Department Care Team (Late st Contact Info) Description 04/12/2024 New Patient Triage (HAND BLOCKER USE ONLY) Hematology/Oncology [facility] [address] [facility] [place] [address] Trena Reid CRNP [address] [place] [address] Referral (SP 10-Day) Allergies Active [...] 3 Each 11 10/17/2023 Active Dexcom G7 Stencil Printer Device Use to read blood glucose values [...] Extended Release 24 Hour (Imdur)Indications :Atherosclerosis of [place] coronary artery of [place] heart without angina pectoris TAKE 1 TABLET [...] MCG/ACT Inhalation Aerosol Powder Breath Activated (umeclidinium [place]) inhale ONE puff DAILY. 30 Each 7 [...] - LAMA Self-Management plan o Other: call [facility] Exacerbation plan o Has not [...] abnormal stress test--ref[place]mild nonobstructive CAD> patent stent. Cont med mgmt 08/14 BRIGITTE- mod BPH 08/14 TTE normal EF, Gr I saavedra Dys, EGD-dilated Schatzki ring 06/13 PFT--normal spirometry with low norm obstructive index. No response to dilator. Normal diffusing. Some air trapping, suggestive flow patterns for obstruction. Acute. HTN, goal below 130/80 05/02/2012 Coronary atherosclerosis of [place] coronary kelby ry 03/06/2012 Overview: 1. S/p NSTEMI--CAD, NSTEMI , PCI with a bare metal stent to the OM1 on 02/03/12 at [facility] 2. Patent OM1 stent with mild nonobstructive CAD noted elsewhere via the 06/24/14 catheterization at [facility] [place] abnormal nuclear stress testing History of [...] (current) use of insulin 08/08/2018 08/11/2022 Old RI (myocardial infarction) 07/03/2018 08/08/2018 Cataract, diabetic 07/03/2018 [...] airways disease. 2012 PFT-low normal 08/14 [facility]-upper lobe emphysema, possible basilar fibrosis Lung density on x-ray 06/04/20132013 Overview: 06/13 density -repeat CXR 1mo Overweight (BMI 25.0-29.9) 04/03/2013 0 04/28/2017 Cough 10/24/2012 05/25/2013 Acute bronchitis, antibiotics not indicated 10/11/2012 05/25/2013 Impacted cerumen 10/11/2012 04/28/2017 Dermatitis 10/11/2012 04/28/2017 HTN, goal below 140/80 03/20/201205/02 Overview: Per HTN Protocol #27. Dyslipidemia, goal LDL below 70 02/07/2012 08/11/2022 [facility] [facility] Other*[id number] 02/03/2012 09/07/2016 History of non-ST elevation myocardial [...] as of this encounter Progress Notes * Trena Reid CRNP - 04/12/2024 5:09 [...] seen hematology? No KAYLAH Cee Hematology * Charu Mosley LPN - 04/12/2024 3:52 PM EDT Images from the original note were not included. New Patient Triage What is the diagnosis/reason for referral?: Anemia Enter order ID here: [id number] Specialty specific documentation: Hematology/Oncology NEW PATIENT - HEMATOLOGY/ONCOLOGY SPECIALTY TRIAGE Triage needed?: Yes Referring provider name: Kana Somers PA-C Confirmation of diagnosis: No TRIAGE PLAN: Baseline/staging imaging complete: No Labs available: Yes Referral to other specialty recommended (ie. Surgery, outpatient infusion): No Additional triage comments: Please see TE 04/12/2024 under Betito Somers PA-C documented in this encounter Plan of Treatment Upcoming Encounters Date Type Department Care Team (Late st Contact Info) Description 05/01/2024 2:40 PM EDT Office Visit [facility] [address] [place] [address] Eddie Ruffin MD [address] [place] [place] [address] 06/26/2024 3:30 PM EST Office Visit Cardiology, [facility] [address] [facility] [place] [address] Malathi Newman PA-C [address] [facility] [place] [address] 07/17/2024 3:20 PM EST Office Visit [facility] [address] [facility] [place] [address] Eddie Ruffin MD [address] [facility] [place] [address] 08/27/2024 2:45 PM EST Office Visit Urology, [facility] [address] [facility] [place] [address] Valentín Sampson MD [address] [facility] [place] [address] 10/19/2024 2:00 PM EDT Office Visit [facility] [address] [facility] [place] [address] Eddie Ruffin MD [address] [facility] [place] [address] Health Maintenance Due Date Last Done Comments [...] this encounter Medical Devices Implanted Type Area Cath Lab Device Identifier Shelf Expiration Date Model / Serial / Lot Cement Antibiotic Bone - [id number] Implanted:Qty: 2 on 06/21/2018 by Sridhar Grant MD [place] [facility] Right: Knee DESHAWN : ORTHOPAEDICS 12/29/2018 6197-9-010 / / [id number] Triathlon Asyetric X3 Patell - [id number] Implanted:Qty: 1 on 06/21/2018 by Sridhar Grant MD [place] [facility] Right: Knee DESHAWN : ORTHOPAEDICS 03/15/2023 5551-G-350 / / [id number] Component Femoral Rt Size 5 T - [id number] Implanted:Qty: 1 on 06/21/2018 by Sridhar Grant MD at [place] [facility] [place]: Knee DESHAWN : ORTHOPAEDICS 12/10/2022 5510-F-502 / / [id number] Knee Baseplate Mis Tib Tri 5 - [id number] Implanted:Qty: 1 on 06/21/2018 by Sridhar Grant MD [place] [facility] [place]: Knee DESHAWN : ORTHOPAEDICS 01/12/2023 5520-M-500 / / [id number] Knee X3 Ins Pos Cs Sz5 9 - [id number] Implanted:Qty: 1 on 06/21/2018 by Sridhar Grant MD at [place] [facility] Right: Knee DESHAWN : ORTHOPAEDICS 10/17/2022 5531-G-509 / / [id number] documented as of this encounter Advance Directives [...] patient or by statute hierarchy) Care Teams Budget Assistant Relationship Specialty Start Date End Date Eddie Ruffin MD [address] [place] [address] PCP - General Family Medicine 07/18/14 documented as of this encounter
--- OUTSIDE RECORDS SUMMARY | 2024-07-27 13:20 | External Medical Summary ---
Author Name Unknown Address Unknown Organization K01:LABORATORY [facility] [place] - [address] [place] [address] Laboratory Report Ordering Provider Test Date Status JACRICHELLE 04/16/2024 13:02:24 Final Observation Date Value Abnormality Reference (Units ) Status Vitamin B12 04/16/2024 13:02:24 464 283-3857 (pg/mL) Final Performing Location LAB[facility] - [address] [place] [address]
--- OUTSIDE RECORDS SUMMARY | 2024-07-27 13:20 | External Medical Summary | Summary of Care ---
Author Name Unknown Organization [facility] Address [address] [place] [address] Phone [phone] Care Team Providers Care Muck Hauler Name Role Phone Eddie Ruffin MD Primary Care Provider + Encounter Details Date Type Department Care Team (Latest Contact Info) Description 04/11/2024 Medication Management [facility] [address] [place], [place] [id number] Chichi Orozco, [facility] [address] [place] [address] Referred for medication therapy management* Allergies Active Allergy Reactions Criticality Noted Date Comments Formoterol High 02/16/2022 Other reaction(s): RASH Lisinopril Cough Low 10/24/2012 Penicillins Other (Please comment) 08/15/2013 Family hx allergic reaction Simvastatin High 02/16/2022 Other reaction(s): RASH documented as of this encounter (statuses as of 04/11/2024) Medications Medication Sig Dispensed Refills Start Date [...] 3 Each 11 10/17/2023 Active Dexcom G7 Day Light Relief Operator Device Use to read blood glucose [...] Extended Release 24 Hour (Imdur)Indications :Atherosclerosis of [place] coronary artery of [place] heart without angina pectoris TAKE 1 TABLET [...] goal of less than 8.0% ([facility]) Take 1 Tablet by mouth in the morning 30 minutes before a meal. 30 Tablet 5 12/30/2023 Active Pantoprazole Sodium 40 MG Oral Tablet Delayed Release (Protonix)Indicati ons:Esophageal obstruction TAKE 1 TABLET BY MOUTH DAILY. 90 Tablet 3 01/03/2024 Active Incruse Ellipta 62.5 MCG/ACT Inhalation Aerosol Powder Breath Activated (umeclidinium [place]) inhale ONE puff DAILY. 30 Each 7 [...] as of this encounter (statuses as of 04/11/2024) Active Problems Problem Noted Date Diagnosed Date [...] prep) 06/14 abnormal stress test--referred for CATH @[facility]--mild nonobstructive CAD> patent stent. Cont med mgmt 08/14 BRIGITTE- mod BPH 08/14 TTE normal EF, Gr I saavedra Dys, EGD-dilated Schatzki ring 06/13 PFT--normal spirometry with low norm obstructive index. No response to dilator. Normal diffusing. Some air trapping, suggestive flow patterns for obstruction. Acute. HTN, goal below 130/80 05/02/2012 Coronary atherosclerosis of [place] coronary kelby ry 03/06/2012 Overview: 1. S/p NSTEMI--CAD, NSTEMI , PCI with a bare metal stent to the OM1 on 02/03/12 at [facility] 2. 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 2012 PFT-low normal 08/14 [facility]-upper lobe emphysema, possible basilar fibrosis Lung density on x-ray 06/04/20132013 Overview: 06/13 density -repeat CXR 1mo Overweight (BMI 25.0-29.9) 04/03/2013 0 04/28/2017 Cough 10/24/2012 05/25/2013 Acute bronchitis, antibiotics not indicated 10/11/2012 05/25/2013 Impacted cerumen 10/11/2012 04/28/2017 Dermatitis 10/11/2012 04/28/2017 HTN, goal below 140/80 03/20/201205/02 Overview: Per HTN Protocol #27. Dyslipidemia, goal LDL below 70 02/07/2012 08/11/2022 [employer] [facility] Other*[id number] 02/03/2012 09/07/2016 History of non-ST elevation myocardial [...] as of this encounter (statuses as of 04/11/2024) Immunizations Name Administration Dates Next Due COVID-19 [...] as of this encounter Progress Notes * Christel Mancera, senior storage administrator - 04/11/2024 7:54 PM EDT Kaden Pal is a 73 year old male. TMR Interventions Incomplete Encounter MTPs No medication therapy recommendations to display Complete Encounter MTPs Referred for medication therapy management Current Medication: Albuterol Sulfate HFA 108 (90 Base) MCG/ACT Inhalation Aerosol Solution Rationale: Untreated condition - Needs additional medication therapy - Indication Recommendation: Provide Education Status: No Longer Relevant Note: TMR for rescue therapy. Patient has albuterol rescue inhaler to use as needed. Current Medication: Incruse Ellipta 62.5 MCG/ACT Inhalation Aerosol Powder Breath Activated (umeclidinium [place]) Rationale: Patient Education - Needs Medication Assessment - Adherence Recommendation: Provide Education Status: Patient Agreed Note: TMR for maintenance inhaler technique. Patient was educated during CMR. Rationale: Medication requires monitoring - Needs additional monitoring - Safety Recommendation: Provide Education Status: Patient Agreed Note: TMR for hypoglycemia. Patient was educated during CMR. Assessment & Plan Indication, effectiveness, safety and convenience of his medications were reviewed today. The patient's medical conditions were assessed, evaluated, and deemed meeting goals of drug therapy, with thefollowing exceptions. Christel Mancera senior storage administrator 04/11/2024, 7:54 PM documented in this encounter Plan of Treatment Upcoming Encounters Date Type Department Care Team (Late st Contact Info) Description 04/27/2024 2:00 PM EDT Office Visit [facility] [address] [place] [address] Eddie Ruffin MD [address] [place] [address] 06/26/2024 3:30 PM EST Office Visit Cardiology, [facility] [address] [place] [address] Malathi Newman PA-C [address] [place] [address] 07/17/2024 3:20 PM EST Office Visit [facility] [address] [place] [address] Eddie Ruffin MD [address] [place] [address] 08/27/2024 2:45 PM EST Office Visit Urology, [facility] [address] [place] [address] Valentín Sampson MD [address] [place] [address] 10/19/2024 2:00 PM EDT Office Visit Family Practice [facility] [address] [place] [address] Eddie Ruffin MD [address] [facility] [place] [address] Health Maintenance Due Date Last Done Comments [...] this encounter Medical Devices Implanted Type Area Property Utilization Manager Device Identifier Shelf Expiration Date Model / Serial / Lot Cement Antibiotic Bone - [id number] Implanted:Qty: 2 on 06/21/2018 by Sridhar Grant MD at OR [facility] Right: Knee DESHAWN : ORTHOPAEDICS 12/29/2018 6197-9-010 / / [id number] Triathlon Asyetric X3 Patell - [id number] Implanted:Qty: 1 on 06/21/2018 by Sridhar Grant MD at OR [facility] Right: Knee DESHAWN : ORTHOPAEDICS 03/15/2023 5551-G-350 / / [id number] Component Femoral Rt Size 5 T - [id number] Implanted:Qty: 1 on 06/21/2018 by Sridhar Grant MD at OR [facility] Right: Knee DESHAWN : ORTHOPAEDICS 12/10/2022 5510-F-502 / / [id number] Knee Baseplate Mis Tib Tri 5 - [id number] Implanted:Qty: 1 on 06/21/2018 by Sridhar Grant MD at OR [facility] Right: Knee DESHAWN : ORTHOPAEDICS 01/12/2023 5520-M-500 / / [id number] Knee X3 Ins Pos Cs Sz5 9 - [id number] Implanted:Qty: 1 on 06/21/2018 by Sridhar Grant MD at OR [facility] Right: Knee DESHAWN : ORTHOPAEDICS 10/17/2022 5531-G-509 / / [id number] documented as of this encounter Visit Diagnoses Diagnosis Referred for medication therapy management- Primary Encounter for long-term (current) use of other [...] patient or by statute hierarchy) Care Teams Muck Hauler Relationship Specialty Start Date End Date Eddie Ruffin MD [address] [facility] [place] [address] PCP - General Family Medicine 07/18/14 documented as of this encounter
--- OUTSIDE RECORDS SUMMARY | 2024-07-27 13:20 | External Medical Summary ---
Author Name Unknown Address Unknown Organization K01:LABORATORY [place] [address] [facility] [address] Laboratory Report Ordering Provider Test Date Status RICHELLE NATHAN 04/16/2024 13:02:24 Final Observation Date Value Abnormality Reference (Units ) Status Retic, % (auto) 04/16/2024 13:02:24 1.60 0.80-1.90 (%) Final Reticulocytes, Absolute 04/16/2024 13:02:24 69.4 31.3-100.1 (K/uL) Final Reticulocyte fraction, immature 04/16/2024 13:02:24 24.4 Above high normal 2.5-20.6 (%) Final Reticulocyte HGB 04/16/2024 13:02:24 29.2 Below low normal 29.7-37.4 (pg) Final Performing Location [place] [facility] [place] [address]
--- OUTSIDE RECORDS SUMMARY | 2024-07-27 13:20 | External Medical Summary ---
Author Name Unknown Address Unknown Organization K01:[facility]ORY [facility] [place] [address] [place] [address] Laboratory Report Ordering Provider Test Date Status JACRICHELLE 04/16/2024 13:02:24 Final Observation Date Value Abnormality Reference (Units ) Status Folic Acid 04/16/2024 13:02:24 7.2 >4.5 (ng/ mL) Final Performing Location LAB[facility] - [address] [place] [address]
--- OUTSIDE RECORDS SUMMARY | 2024-07-27 13:20 | External Medical Summary | Summary of Care ---
Author Name Unknown Organization [facility] Address [address] [place] [address] Phone [phone] Care Team Providers Care Tube Backer Name Role Phone Eddie Ruffin MD Primary Care Provider + Reason for Visit * Reason Comments Outpatient Testing Encounter Details Date Type Department Care Team (Late st Contact Info) Description 04/16/2024 1:20 PM EDT Laboratory Laboratory, [facility] [address] [place] [address] [facility] [address] [place] [address] Anemia, unspecified type; Erythrocytosis Allergies Active Allergy Reactions Criticality Noted Date [...] 3 Each 11 10/17/2023 Active Dexcom G7 Metal Bending Machine Operator Device Use to read blood glucose values with dexcom G7 sensor E 11.9 1 Each 10/17/2023 Active Insulin Glargine 100 UNIT/ML Subcutaneous Solution (Lantus)Indication s:Type 2 diabetes mellitus with hemoglobin A1c goal of less than 8.0% ([facility]) INJECT 55 UNITS UNDER THE [...] goal of less than 8.0% ([facility]) Take 1 Tablet by mouth in the morning 30 minutes before a meal. 30 Tablet 5 12/30/2023 Active Pantoprazole Sodium 40 MG Oral Tablet Delayed Release (Protonix)Indicati ons:Esophageal obstruction TAKE 1 TABLET BY MOUTH DAILY. 90 Tablet 3 01/03/2024 Active Incruse Ellipta 62.5 MCG/ACT Inhalation Aerosol Powder Breath Activated (umeclidinium Frannie) inhale ONE puff DAILY. 30 Each 7 [...] - LAMA Self-Management plan o Other: call [facility] Exacerbation plan o Has not required [...] 06/14 abnormal stress test--referred for CATH @[facility]--mild nonobstructive CAD> patent stent. 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 2012 PFT-low normal 08/14 [facility]-upper lobe emphysema, possible basilar fibrosis Lung density on x-ray 06/04/20132013 Overview: 06/13 density -repeat CXR 1mo Overweight (BMI 25.0-29.9) 04/03/2013 0 04/28/2017 Cough 10/24/2012 05/25/2013 Acute bronchitis, antibiotics not indicated 10/11/2012 05/25/2013 Impacted cerumen 10/11/2012 04/28/2017 Dermatitis 10/11/2012 04/28/2017 HTN, goal below 140/80 03/20/201205/02 Overview: Per HTN Protocol #27. Dyslipidemia, goal LDL below 70 02/07/2012 08/11/2022 [facility] Other*[id number] 02/03/2012 09/07/2016 History of non-ST elevation myocardial [...] 04/18/2024 3:00 PM EDT Office Visit Hematology/Oncology [facility] [address] [place] [address] Sy Dong MD 200 [place] [address] 05/01/2024 2:40 PM EDT Office [facility] [address] [facility] [place] [address] Eddie Ruffin MD 132 [facility] [place] [address] 06/26/2024 3:30 PM EST Office Visit Cardiology, [facility] [address] [place] [address] Malathi Newman PA-C 132 [place] [address] 07/17/2024 3:20 PM EST Office [facility] [address] [place] [place] [address] Eddie Ruffin MD 132 [facility] [place] [address] 08/27/2024 2:45 PM EST Office Visit Urology, [facility] [address] [place] [place] [address] Valentín Sampson MD [address] [place] [address] 10/19/2024 2:00 PM EDT Office Visit [facility] 132 [facility] [place] [address] Eddie Ruffin MD 132 [place] [address] Pending Results Name Type Priority Associated Diagnoses Date /Time CBC WITH WBC DIFFERENTIAL Lab Routine Anemia, unspecified type 04/16/2024 1:02 PM EDT IRON SCREEN, INCLUDING TIBC Lab Routine Anemia, unspecified type 04/16/2024 1:02 PM EDT FERRITIN Lab Routine Anemia, unspecified type 04/16/2024 1:02 PM EDT RETICULOCYTE PANEL Lab Routine Anemia, unspecified type 04/16/2024 1:02 PM EDT LD Lab Routine Anemia, unspecified type 04/16/2024 1:02 PM EDT VITAMIN B12 Lab Routine Erythrocytosis Anemia, unspecified type 04/16/2024 1:02 PM EDT FOLIC ACID Lab Routine Erythrocytosis Anemia, unspecified type 04/16/2024 1:02 PM EDT CBC Lab Routine Anemia, unspecified type 04/16/2024 1:02 PM EDT DIFFERENTIAL, AUTOMATED Lab Routine Anemia, unspecified type 04/16/2024 1:02 PM EDT Health Maintenance Due Date Last Done Comments [...] this encounter Medical Devices Implanted Type Area Product Inspection Coordinator Device Identifier Shelf Expiration Date Model / Serial / Lot Cement Antibiotic Bone - [id number] Implanted:Qty: 2 on 06/21/2018 by Sridhar Grant MD at OR [facility] Right: Knee DESHAWN : ORTHOPAEDICS 12/29/2018 6197-9-010 / / [id number] Triathlon Asyetric X3 Patell - [id number] Implanted:Qty: 1 on 06/21/2018 by Sridhar Grant MD at OR [facility] Right: Knee DESHAWN : ORTHOPAEDICS 03/15/2023 5551-G-350 / / 1VE Component Femoral Rt Size 5 T - [id number] Implanted:Qty: 1 on 06/21/2018 by Sridhar Grant MD at OR [facility] Right: Knee DESHAWN : ORTHOPAEDICS 12/10/2022 5510-F-502 / / [id number] Knee Baseplate Mis Tib Tri 5 - [id number] Implanted:Qty: 1 on 06/21/2018 by Sridhar Grant MD at OR [facility] Right: Knee DESHAWN : ORTHOPAEDICS 01/12/2023 5520-M-500 / / [id number] Knee X3 Ins Pos Cs Sz5 9 - [id number] Implanted:Qty: 1 on 06/21/2018 by Sridhar Grant MD at [facility] Right: Knee DESHAWN : ORTHOPAEDICS 10/17/2022 5531-G-509 / / [id number] documented as of this encounter Visit Diagnoses Diagnosis Anemia, unspecified type Erythrocytosis Polycythemia, secondary documented in this encounter Advance Directives * [...] patient or by statute hierarchy) Care Teams Tube Backer Relationship Specialty Start Date End Date Eddie Ruffin MD [address] [place] [address] PCP - General Family Medicine 07/18/14 documented as of this encounter
--- OUTSIDE RECORDS SUMMARY | 2024-07-27 13:20 | External Medical Summary | Summary of Care ---
Author Name Unknown Organization [facility] Address [address] [place] [address] Phone [phone] Care Team Providers Care Car Manager Name Role Phone Eddie Ho MD Primary Care Provider + Reason for Visit * Reason Comments Medication Refill Encounter Details Date Type Department Care Team (Late st Contact Info) Description 04/13/2024 Refill Family Practice [facility] [address] [place] [address] Eddie Ho MD [address] [place] [address] ANKITA (generalized anxiety disorder); Dysthymia Allergies Active Allergy Reactions Criticality Noted Date Comments Formoterol High 02/16/2022 Other reaction(s): RASH Lisinopril Cough Low 10/24/2012 Penicillins Other (Please comment) 08/15/2013 Family hx allergic reaction Simvastatin High 02/16/2022 Other reaction(s): RASH documented as of this encounter (statuses as of 04/14/2024) Medications Medication Sig Dispensed Refills Start Date [...] AND EVENING MEALS. 180 Tablet 3 04/19/2023 Active Vitamin B-12 1000 MCG Oral Tablet [...] 3 Each 11 10/17/2023 Active Dexcom G7 Inspector Machine Cut Glass Device Use to read blood glucose values [...] Extended Release 24 Hour (Imdur)Indication s:Atherosclerosis of [place] coronary artery of [place] heart without angina pectoris TAKE 1 TABLET [...] MCG/ACT Inhalation Aerosol Powder Breath Activated (umeclidinium [place]) inhale ONE puff DAILY. 30 Each 7 [...] the morning. 45 Tablet 5 04/14/2024 Active Sertraline HCl 100 MG Oral Tablet (Zoloft)Indicatio ns:ANKITA (generalized anxiety disorder),Dysthym ia Take 1.5 Tablets by mouth in the morning. 45 Tablet 5 07/01/2023 Discontinue d(Refill) documented as of this encounter (statuses as of 04/14/2024) Active Problems Problem Noted Date Diagnosed Date [...] - LAMA Self-Management plan o Other: call [facility] Exacerbation plan o Has not [...] prep) 06/14 abnormal stress test--referred for CATH @[facility]--mild nonobstructive CAD> patent stent. Cont med mgmt 08/14 BRIGITTE- mod BPH 08/14 TTE normal EF, Gr I saavedra Dys, EGD-dilated Schatzki ring 06/13 PFT--normal spirometry with low norm obstructive index. No response to dilator. Normal diffusing. Some air trapping, suggestive flow patterns for obstruction. Acute. HTN, goal below 130/80 05/02/2012 Coronary atherosclerosis of [place] coronary kelby ry 03/06/2012 Overview: 1. S/p NSTEMI--CAD, NSTEMI , PCI with a bare metal stent to the OM1 on 02/03/12 at [facility] 2. 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 2012 PFT-low normal 08/14 [facility]-upper lobe emphysema, possible basilar fibrosis Lung density on x-ray 06/04/20132013 Overview: 06/13 density -repeat CXR 1mo Overweight (BMI 25.0-29.9) 04/03/2013 0 04/28/2017 Cough 10/24/2012 05/25/2013 Acute bronchitis, antibiotics not indicated 10/11/2012 05/25/2013 Impacted cerumen 10/11/2012 04/28/2017 Dermatitis 10/11/2012 04/28/2017 HTN, goal below 140/80 03/20/201205/02 Overview: Per HTN Protocol #27. Dyslipidemia, goal LDL below 70 02/07/2012 08/11/2022 [facility] Other*[id number] 02/03/2012 09/07/2016 History of non-ST elevation myocardial [...] as of this encounter (statuses as of 04/14/2024) Immunizations Name Administration Dates Next Due COVID-19 [...] encounter Miscellaneous Notes * Telephone Encounter - Letty Junior [facility] - 04/14/2024 6:11 PM EDTSigned Prescriptions: Disp Refills Sertraline HCl 100 MG Oral Tablet (Zoloft) 45 Tab*5 Sig: Take 1.5 Tablets by mouth in the morning.Authorizing Provider: EDDIE HOOrderbonnie User: LETTY JUNIOR documented in this encounter Plan of Treatment Upcoming Encounters Date Type Department Care Team (Late st Contact Info) Description 04/18/2024 3:00 PM EDT Office Visit Hematology/Oncology [facility] [address] [facility] [place] [address] Sy Dong MD 200 [facility] [place] [address] 05/01/2024 2:40 PM EDT Office Visit [facility] [address] [place] [address] Eddie Ho MD [address] [place] [address] 06/26/2024 3:30 PM EST Office Visit Cardiology, [facility] [address] [place] [address] Malathi Newman PA-C [address] [place] [address] 07/17/2024 3:20 PM EST Office Visit [facility] [address] [place] [address] Eddie Ho MD [address] [place] [address] 08/27/2024 2:45 PM EST Office Visit Urology, [facility] [address] [place] [address] Valentín Sampson MD [address] [place] [address] 10/19/2024 2:00 PM EDT Office Visit Family Practice [facility] [address] [place] [address] Eddie Ho MD [address] [place] [address] Health Maintenance Due Date Last Done Comments [...] 04/16/2022, 04/29/2021, Additional history exists Albumin/Creatinine Ratio 06/28/20242 023, 04/16/2022, 07/02/2021, Additional history exists HbA1c [...] this encounter Medical Devices Implanted Type Area Instructional Support Specialist Device Identifier Shelf Expiration Date Model / Serial / Lot Cement Antibiotic Bone - [id number] Implanted:Qty: 2 on 06/21/2018 by Sridhar Grant MD at OR [facility] Right: Knee DESHAWN : ORTHOPAEDICS 12/29/2018 6197-9-010 / / [id number] Triathlon Asyetric X3 Patell - [id number] Implanted:Qty: 1 on 06/21/2018 by Sridhar Grant MD at OR [facility] Right: Knee DESHAWN : ORTHOPAEDICS 03/15/2023 5551-G-350 / / 1VE Component Femoral Rt Size 5 T - [id number] Implanted:Qty: 1 on 06/21/2018 by Sridhar Grant MD at OR [facility] Right: Knee DESHAWN : ORTHOPAEDICS 12/10/2022 5510-F-502 / / [id number] Knee Baseplate Mis Tib Tri 5 - [id number] Implanted:Qty: 1 on 06/21/2018 by Sridhar Grant MD at OR [facility] Right: Knee DESHAWN : ORTHOPAEDICS 01/12/2023 5520-M-500 / / [id number] Knee X3 Ins Pos Cs Sz5 9 - [id number] Implanted:Qty: 1 on 06/21/2018 by Sridhar Grant MD at OR [facility] Right: Knee DESHAWN : ORTHOPAEDICS 10/17/2022 5531-G-509 / / [id number] documented as of this encounter Visit Diagnoses Diagnosis ANKITA (generalized anxiety disorder) Generalized anxiety disorder Dysthymia Dysthymic disorder documented in this encounter Advance Directives * [...] patient or by statute hierarchy) Care Teams Car Manager Relationship Specialty Start Date End Date Eddie Ho MD [address] [place] [address] PCP - General Family Medicine 07/18/14 documented as of this encounter
--- OUTSIDE RECORDS SUMMARY | 2024-07-27 13:21 | External Medical Summary | Summary of Care ---
Author Name Unknown Organization [facility] Address [address] [place] [address] Phone [phone] Care Team Providers Care Package Delivery Driver Name Role Phone Eddie Ruffin MD Primary Care Provider + Reason for Visit * Reason Comments Outpatient Testing Encounter Details Date Type Department Care Team (Late st Contact Info) Description 04/10/2024 2:40 PM EDT Laboratory Laboratory, [facility] [address] [place] [address] [facility] [address] [place] [address] Serologic abnormality; Iron deficiency anemia; Type 2 diabetes mellitus with diabetic cataract, with long-term current use of insulin ([facility]); HTN, goal below 140/90 Allergies Active Allergy Reactions Criticality Noted Date Comments Formoterol High 02/16/2022 Other reaction(s): RASH Lisinopril Cough Low 10/24/2012 Penicillins Other (Please comment) 08/15/2013 Family hx allergic reaction Simvastatin High 02/16/2022 Other reaction(s): RASH documented as of this encounter (statuses as of 04/10/2024) Medications Medication Sig Dispensed Refills Start Date [...] the morning. 45 Tablet 5 07/01/2023 Active Carvedilol 3.125 MG Oral Tablet (Coreg)Indications :Old myocardial infarction Take 1 Tablet by mouth in the morning and 1 Tablet before bedtime with food. 60 Tablet 5 10/04/2023 Active Dexcom G7 Sensor Use 1 sensor every 10 days E 11.9 3 Each 11 10/17/2023 Active Dexcom G7 Pottery Decoration Designer Device Use to read blood glucose values [...] Extended Release 24 Hour (Imdur)Indications :Atherosclerosis of [place] coronary artery of [place] heart without angina pectoris TAKE 1 [...] MCG/ACT Inhalation Aerosol Powder Breath Activated (umeclidinium [place]) inhale ONE puff DAILY. 30 Each 7 [...] the morning. 90 Tablet 3 04/10/2024 Active documented as of this encounter (statuses as of 04/10/2024) Active Problems Problem Noted Date Diagnosed Date [...] - LAMA Self-Management plan o Other: call [facility] Exacerbation plan o Has not required [...] prep) 06/14 abnormal stress test--referred for CATH @[facility]--mild nonobstructive CAD> patent stent. Cont med mgmt 08/14 BRIGITTE- mod BPH 08/14 TTE normal EF, Gr I saavedra Dys, EGD-dilated Schatzki ring 06/13 PFT--normal spirometry with low norm obstructive index. No response to dilator. Normal diffusing. Some air trapping, suggestive flow patterns for obstruction. Acute. HTN, goal below 130/80 05/02/2012 Coronary atherosclerosis of [place] coronary kelby ry 03/06/2012 Overview: 1. S/p NSTEMI--CAD, NSTEMI , PCI with a bare metal stent to the OM1 on 02/03/12 at [facility] 2. 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 documented as of this encounter (statuses as of 04/10/2024) Resolved Problems Problem Noted Date Diagnosed Date [...] disease witho ut cerebral infarction 09/22/2018 08/11/2022 alf (current) use of insulin 08/08/2018 08/11/2022 Old [place] (myocardial infarction) 07/03/2018 08/08/2018 Cataract, diabetic 07/03/2018 [...] below 70 02/07/2012 08/11/2022 [facility] Other*[id number] 02/03/2012 09/07/2016 History of non-ST elevation myocardial [...] as of this encounter (statuses as of 04/10/2024) Immunizations Name Administration Dates Next Due COVID-19 [...] Description 04/27/2024 2:00 PM EDT Office Visit [facility] [address] [facility] [place] [address] Eddie Ruffin MD 132 [facility] [place] [address] 06/26/2024 3:30 PM EST Office Visit Cardiology, [facility] 132 [facility] [place] [address] Malathi Newman PA-C [address] [place] [address] 07/17/2024 3:20 PM EST Office Visit [facility] [address] [facility] [place] [address] Eddie Ruffin MD 132 [facility] [place] [address] 08/27/2024 2:45 PM EST Office Visit Urology, [facility] [address] [facility] [place] [address] Valentín Sampson MD [address] [place] [id number] 10/19/2024 2:00 PM EDT Office Visit [facility] [address] [facility] [place] [address] Eddie Ruffin MD 132 [place] [address] Pending Results Name Type Priority Associated Diagnoses Date /Time SERUM PROTEIN ELECTROPHORESIS REFLEX PROFILE Lab Routine Serologic abnormality 04/10/2024 2:37 PM EDT LIPID PANEL WITH DIRECT LDL IF TG IS HIGH Lab Routine Type 2 diabetes mellitus with diabetic cataract, with long-term current use of insulin ([facility]) 04/10/2024 2:37 PM EDT HEMOGLOBIN A1C Lab Routine Type 2 diabetes mellitus with diabetic cataract, with long-term current use of insulin ([facility]) 04/10/2024 2:37 PM EDT Health Maintenance Due Date Last [...] 07/01/2023, 04/16/2022, 04/29/2021, Additional history exists HbA1c 05/30/2024 11/29/2023, 06/02, 08/31/2022, Additional history exists Albumin/Creatinine Ratio 06/28/2024 023, 04/16/2022, 07/02/2021, Additional history exists O2 ASSESSMENT COMPLETED IN [...] this encounter Medical Devices Implanted Type Area Bolt Labeler Device Identifier Shelf Expiration Date Model / Serial / Lot Cement Antibiotic Bone - [id number] Implanted:Qty: 2 on 06/21/2018 by Sridhar Grant MD at OR [facility] Right: Knee DESHAWN : ORTHOPAEDICS 12/29/2018 6197-9-010 / / [id number] Triathlon Asyetric X3 Patell - [id number] Implanted:Qty: 1 on 06/21/2018 by Sridhar Grant MD at OR [facility] Right: Knee DESHAWN : ORTHOPAEDICS 03/15/2023 5551-G-350 / / 1VE Component Femoral Rt Size 5 T - [id number] Implanted:Qty: 1 on 06/21/2018 by Sridhar Grant MD at OR [facility] Right: Knee DESHAWN : ORTHOPAEDICS 12/10/2022 5510-F-502 / / [id number] Knee Baseplate Mis Tib Tri 5 - [id number] Implanted:Qty: 1 on 06/21/2018 by Sridhar Grant MD at OR [facility] Right: Knee DESHAWN : ORTHOPAEDICS 01/12/2023 5520-M-500 / / [id number] Knee X3 Ins Pos Cs Sz5 9 - [id number] Implanted:Qty: 1 on 06/21/2018 by Sridhar Grant MD at OR [facility] Right: Knee DESHAWN : ORTHOPAEDICS 10/17/2022 5531-G-509 / / [id number] documented as of this encounter Procedures Procedure Name Priority Date/Time Associated Diagnosis Comments BASIC METABOLIC PANEL Routine 04/10/2024 2:37 PM EDT HTN, goal below 140/90 CBC Routine 04/10/2024 2:37 PM EDT Iron deficiency anemia documented in this encounter Results * (ABNORMAL) BASIC METABOLIC PANEL (04/10/2024 2:37 PM EDT) BUN 17 6 - 20 mg/dL 04/10/2024 3:38 PM EDT [facility] 57-10 Creatinine 1.2 0.6 - 1.2 mg/dL 04/10/2024 3:38 PM EDT [facility] 57-10 Estimated Glomerular Filtration Rate 61 >=60 mL/min 04/10/2024 3:38 PM EDT [facility] 57-10 Comment:eGFR is calculated b ased on the CKD-EPI 2020 equation. Sodium 138 135 - 146 mmol/L 04/10/2024 3:38 PM EDT [facility] 57-10 Potassium 4.6 3.5 - 5.1 mmol/L 04/10/2024 3:38 PM EDT [facility] 57-10 Chloride 100 98 - 107 mmol/L 04/10/2024 3:38 PM EDT [facility] 57-10 CO2 24 22 - 32 mmol/L 04/10/2024 3:38 PM EDT [facility] 57-10 Anion Gap 14 7 - 15 mmol/L 04/10/2024 3:38 PM EDT [facility] 57-10 Glucose 221(H) 70 - 120 mg/dL 04/10/2024 3:38 PM EDT [facility] 57-10 Calcium 10.1 8.4 - 10.2 mg/dL 04/10/2024 3:38 PM EDT [facility] [place] 57-10 Blood Venous blood specimen / Unknown Venipuncture / Unknown 04/10/2024 2:37 PM EDT 04/10/2024 2:37 PM EDT Kana Somers PA-C LAB BLOOD ORDERABLE S [facility] [address] [facility] [place] [address] * (ABNORMAL) CBC (04/10/2024 2:37 PM EDT) WBC 6.73 4.00 - 10.80 K/uL 04/10/2024 3:05 PM EDT [facility] 57-10 RBC 4.06 4.50 - 5.25 M/uL 04/10/2024 3:05 PM EDT [facility] [place] 57-10 HGB 11.0(L) 14.0 - 16.8 g/dL 04/10/2024 3:05 PM EDT [facility] [place] 57-10 HCT 35.4(L) 40.0 - 48.4 % 04/10/2024 3:05 PM EDT [facility] [place] 57-10 MCV 87.2 82.0 - 99.5 fL 04/10/2024 3:05 PM EDT [facility] [place] 57-10 MCH 27.1 27.0 - 34.0 pg 04/10/2024 3:05 PM EDT [facility] [place] 57-10 MCHC 31.1 32.0 - 36.0 g/dL 04/10/2024 3:05 PM EDT [facility] [place] 57-10 RDW 15.8 11.5 - 15.5 % 04/10/2024 3:05 PM EDT [facility] [place] 57-10 PLT 205 140 - 400 K/uL 04/10/2024 3:05 PM EDT [facility] [place] 57-10 MPV 9.2 6.6 - 11.1 fL 04/10/2024 3:05 PM EDT [facility] [place] 57-10 Blood Venous blood specimen / Unknown Venipuncture / Unknown 04/10/2024 2:37 PM EDT 04/10/2024 2:37 PM EDT Kana Somers PA-C LAB BLOOD ORDERABLE S [facility] [place] 57-10 [address] [facility] [place] [address] documented in this encounter Visit Diagnoses Diagnosis Serologic abnormality Other and unspecified nonspecific immunological findings Iron deficiency anemia Iron deficiency anemia, unspecified Type 2 diabetes mellitus with diabetic cataract, with long-term current use of insulin (HCC) HTN, goal below 140/90 Unspecified essential hypertension [...] patient or by statute hierarchy) Care Teams Package Delivery Driver Relationship Specialty Start Date End Date Eddie Ruffin MD [address] [facility] [place] [address] PCP - General Family Medicine 07/18/14 documented as of this encounter
--- OUTSIDE RECORDS SUMMARY | 2024-07-27 13:21 | External Medical Summary ---
Author Name Unknown Address Unknown Organization K01:[facility] [place] [address] [place] [address] Laboratory Report Ordering Provider Test Date Status VIC MEANS 04/10/2024 14:37:03 Final Observation Date Value Abnormality Reference (Units ) Status LDL, (direct) 04/10/2024 14:37:03 72 <=129 (mg/dL) Final LDL Cholesterol Reference Ra nges (mg/dL):
<70 Target level for high risk ASCVD patient
<100 Optimal for general population
100-129 Near optimal for general population
130-159 Borderline high
160-189 High
>=190 Very high Performing Location [facility] [address] [facility] [facility] [address]
--- OUTSIDE RECORDS SUMMARY | 2024-07-27 13:21 | External Medical Summary ---
Author Name Unknown Address Unknown Organization [id number]:[facility] [place] [address] Laboratory Report Ordering Provider Test Date Status DILIP SAM 04/10/2024 14:37:03 Final Observation Date Value Abnormality Reference (Units ) Status WBC, Total 04/10/2024 14:37:03 6.73 4.00-10.8 0 (K/uL) Final RBC 04/10/2024 14:37:03 4.06 4.50-5.25 (M/uL) Final Hemoglobin 04/10/2024 14:37:03 11.0 Below low normal 14 .0-16.8 (g/dL) Final HCT 04/10/2024 14:37:03 35.4 Below low normal 40. 0-48.4 (%) Final MCV 04/10/2024 14:37:03 87.2 82.0-99.5 (fL) Final MCH 04/10/2024 14:37:03 27.1 27.0-34.0 (pg) Final MCHC 04/10/2024 14:37:03 31.1 32.0-36.0 (g/dL) Final RDW 04/10/2024 14:37:03 15.8 11.5-15.5 (%) Final Platelets 04/10/2024 14:37:03 205 140-400 (K /uL) Final MPV 04/10/2024 14:37:03 9.2 6.6-11.1 ( fL) Final Performing Location [facility] [address] [place] [address]
--- OUTSIDE RECORDS SUMMARY | 2024-07-27 13:21 | External Medical Summary | Summary of Care ---
Author Name Unknown Organization [facility] Address [address] [place] [address] Phone [phone] Care Team Providers Care Surgical Tech Name Role Phone Eddie Ho MD Primary Care Provider + Reason for Visit * Reason Comments Cystoscopy Encounter Details Date Type Department Care Team (Late st Contact Info) Description 04/10/2024 2:00 PM EDT Office Visit Urology, [facility] [address] [facility] [place] [address] Valentín Sampson MD [address] [place] [address] BPH with obstruction/lower urinary tract symptoms* Allergies Active Allergy Reactions Criticality Noted Date [...] 3 Each 11 10/17/2023 Active Dexcom G7 On Awake Counselor Device Use to read blood glucose values [...] Extended Release 24 Hour (Imdur)Indications :Atherosclerosis of kiana coronary artery of kiana heart without angina pectoris TAKE 1 TABLET [...] MCG/ACT Inhalation Aerosol Powder Breath Activated (umeclidinium [place]) inhale ONE puff DAILY. 30 Each 7 [...] the morning. 90 Tablet 3 04/10/2024 Active Hospital, Clinic, or Other Facility Administered Medication Ordered Dose Route Frequency Start Date End Date Status sulfamethoxazole-trimethopr im DS (Bactrim DS) 800-160 MG 1 TabletIndications:BPH with obstruction/lower urinary tract symptoms 1 Tablet OR ONCE 04/10/2024 04/10/2024 En ded documented as of this encounter (statuses as [...] - LAMA Self-Management plan o Other: call [facility] Exacerbation plan o Has not [...] prep) 06/14 abnormal stress test--referred for CATH @[facility]--mild nonobstructive CAD> patent stent. Cont med mgmt 08/14 BRIGITTE- mod BPH 08/14 TTE normal EF, Gr I saavedra Dys, EGD-dilated Schatzki ring 06/13 PFT--normal spirometry with low norm obstructive index. No response to dilator. Normal diffusing. Some air trapping, suggestive flow patterns for obstruction. Acute. HTN, goal below 130/80 05/02/2012 Coronary atherosclerosis of kiana coronary kelby ry 03/06/2012 Overview: 1. S/p NSTEMI--CAD, NSTEMI , PCI with a bare metal stent to the OM1 on 02/03/12 at [facility] 2. Patent OM1 stent with mild nonobstructive CAD noted elsewhere via the 06/24/14 catheterization at [facility] following abnormal nuclear stress testing History of [...] Stable orthostatics today. Following with cardiology with garcia monitoring. 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 Patient was provided Myrbetriq at his last visit, not on his current medication list, unclear if he is taking. Patient remains a poor historian, history obtained from the patient's . BPH: Patient is being seen for BPH today. He has had the following symptoms: nocturia x 8 with urgency, postvoid dribbling and urgency. Severity is moderate. He has tried tamsulosin. Trial of Myrbetriq provided October 2023 Cystoscopy April 2024. Problem has been present for years. Problem is getting worse. Current Outpatient Medications Medication Sig Dispense Refill [...] 1 Tablet before bedtime. 180 Tablet 3 metFORMIN HCl 1000 MG Oral Tablet (Glucophage) TAKE 1 TABLET BY MOUTH TWICE DAILY WITH MORNING AND EVENING MEALS. 180 Tablet 3 Vitamin B-12 1000 MCG Oral Tablet (Cyanocobalamin) Take 1 Tablet by mouth in the morning. 100 Tablet 3 Polyethylene Glycol 3350 17 GM/SCOOP Oral Powder (GNP ClearLax) USE 1 CAPFUL UP TO 3 TIMES DAILY FOR CONSTIPATION 238 g 11 Sertraline HCl 100 MG Oral Tablet (Zoloft) Take 1.5 Tablets by mouth in the morning. 45 Tablet 5 Carvedilol 3.125 MG Oral Tablet (Coreg) Take 1 Tablet by mouth in the morning and 1 Tablet before bedtime with food. 60 Tablet 5 Dexcom G7 Sensor Use 1 sensor every 10 days E 11.9 3 Each 11 Dexcom G7 On Awake Counselor Device Use to read blood glucose values [...] MCG/ACT Inhalation Aerosol Powder Breath Activated (umeclidinium [place]) inhale ONE puff DAILY. 30 Each 7 [...] needed for Mild pain 60 Tablet 0 No current facility-administered medications for this visit. Review of patient's allergies indicates: Allergen Reactions Formoterol Other reaction(s): RASH Simvastatin Other reaction(s): RASH Penicillins Other (Please comment) Family hx allergic reaction Lisinopril Cough Social History: Social History Tobacco Use Smoking status: Former Current packs/day: 0.00 Types: Cigarettes Start date: 08/24/1968 Quit date: 08/24/1988 Years since quittin.6 Smokeless tobacco: Current Types: Snuff Tobacco comments: Aorta screen WNL. Substance Use Topics Alcohol use: No Comment: quit in 1992, had been heavy drinker Vaping/E-Cigarette Use Vaping/E-Cigarette Use Never User Vaping/E-Cigarette Substances Vaping/E-Cigarette Devices Past Surgical History: Procedure Laterality Date ARTHO,SHOUL,W/ROTATOR CUFF Right 11/04/2015 Dr Johnson U ARTHROPLASTY KNEE TOTAL Right 06/21/2018 ARTHROPLASTY KNEE TOTAL performed by Sridhar Grant MD at [facility] CARDIAC CATH-CARDIOLOGY ONLY 06/2014 [facility]-mild CAD-nonobstruc CARPAL TUNNEL SURGERY 05/28/2014 NEUROPLASTY MEDIAN NERVE AT CARPAL TUNNEL performed by Sridhar Bernstein MD at [facility] CARPAL TUNNEL SURGERY Left 07/11/2014 NEUROPLASTY MEDIAN NERVE AT CARPAL TUNNEL performed by Sridhar Bernstein MD at [facility] COLONOSCOPY 04/2007 clear - repeat 10y COLONOSCOPY, DIAGNOSTIC (RECTUM) 09/18/2012 adenom polyps - repeat 3y COLONOSCOPY, DIAGNOSTIC (RECTUM) 02/24/2016 adenomatous polyp, diverticulosis, poor prep, repeat 2 yrs/COLONOSCOPY FLEXIBLE PROXIMAL DIAGNOSTICperformed by Shaheen Javed MD at ENDOSCOPY [facility] COLONOSCOPY, DIAGNOSTIC (RECTUM) 03/22/2018 adenomatous polyp, diverticulosis, repeat 5 yrs/COLONOSCOPY FLEXIBLE PROXIMAL DIAGNOSTIC performed by Shaheen Javed MD at ENDOSCOPY [facility] CORONARY ANGIOGRAPHY W/LEFT HEART CATH 02/03/2012 CORONARY ANGIOGRAPHY W/LEFT HEART CATH performed by Lazaro White MD at CARDIAC LABS [facility] CORONARY ANGIOGRAPHY W/LEFT HEART CATH 06/24/2014 CORONARY ANGIOGRAPHY W/LEFT HEART CATH performed by Kristen Andrade MD at CARDIAC LABS [facility] EGD, FLEXIBLE, DIAGNOSTIC 08/2013 Schatzki ring dilated. EGD, FLEXIBLE, DIAGNOSTIC 08/23/2013 ESOPHAGOGASTRODUODENOSCOPY (EGD), FLEXIBLE, TRANSORAL, DIAGNOSTIC performed by Shaheen Javed MD at ENDOSCOPY [facility] KNEE ARTHROSCOPY/ARTHROPLASTY Right LASER TRABECULOPLASTY 1997 Dr. Chelsie Kaufman OU MISCELLANEOUS ORDER (HS ONLY) ACT 112 SIGNED 11/07/18 DR. STEVENS OPEN SKULL FOR EXPLORATION 03/2008 cerebellar hemorrhage evacuated PACEMAKER INSERTION PER 08/23/2022 Dr Apolinar Barcenas at [facility]. had 7sec pause prior REPAIR INITIAL INGUINAL HERNIA REDUCIBLE AGE 5 OR MORE bilat Past Medical History: Diagnosis Date Arthritis of [...] dyspnea and respiratory abnormality 2006 Pulmonary fibrosis (HCC) 08/06/2022 S/P biventricular cardiac pacemaker procedure Schatzki's ring Sensorineural hearing loss, bilateral 2006 noise induced possibly early presbycusis Status post total right knee replacement 06/22/2018 Subarachnoid hemorrhage (HCC) 03/28/2008 Cerebral Hemorrhage Tobacco use disorder 10/26/2010 Type 2 diabetes mellitus with hemoglobin A1c goal of less than 8.0% ([facility]) 05/15/2009 2014 +microalb on max ARB ICD-10 update of inactive term Patient Active Problem List Diagnosis Sensorineural hearing loss, bilateral Type 2 diabetes mellitus with hemoglobin A1c goal of less than 8.0% ([facility]) Coronary atherosclerosis of kiana coronary artery HTN, goal below 130/80 Well adult exam BPH with obstruction/lower urinary tract symptoms MEDICATION USE AGREEMENT ANKITA (generalized anxiety disorder) Chronic 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 Nonproliferative diabetic retinopathy of both eyes (HCC) Gastro-esophageal reflux disease without esophagitis Occlusion and stenosis of bilateral carotid arteries Chronic diastolic CHF (congestive heart failure) ([facility]) Centrilobular emphysema (HCC) Pulmonary fibrosis ([facility]) Dyslipidemia Lumbar degenerative disc disease Orthostatic hypotension S/P biventricular cardiac pacemaker procedure Hypertensive heart disease with chronic diastolic congestive heart failure ([facility]) COPD, group C, by GOLD 2017 classification ([facility]) Old myocardial infarction Encephalomalacia Hemiplegia affecting right dominant side ([facility]) Type 2 diabetes mellitus with diabetic cataract, with long-term current use of insulin (HCC) SSS (sick sinus syndrome) ([facility]) MDD (major depressive disorder), recurrent episode, moderate ([facility]) Fatty liver Male : See HPI Cystoscopy Procedure Note: Patient was properly identified and appropriate consent was confirmed. Risks and benefits of the procedure were reviewed and the patient was prepped and draped in the standard fashion for the procedure. A well lubricated 16 [place] Islander flexible cystoscope was introduced through the meatus into the urethra. Urethra demonstrated no abnormalities. Prostatic urethra demonstrated elevated bladder neck, significant obstructive lateral lobe hypertrophy, and no intravesical extension. Bladder neck was visualized and bladder was entered. Sterile saline irrigation was used to distend the bladder which was noted to have no tumors, stones or mucosal abnormalities and adequate emptying with grade 3 trabeculat ion. Bladder was completely inspected including retroflexion of the scope. Ureteral orifices were noted to be in the normal anatomic position bilaterally. After this was completed the cystoscope was removed. Patient tolerated the procedure well without complications or difficulties. Poultry Farmer Meat was present for entire procedure. Perioperative Bactrim was provided. Impression/Plan: 73-year-old male with BPH. Unclear if the patient gave an adequate trial of Myrbetriq. However, seen cystoscopic findings willadd finasteride to his regimen. Will see the patient back in 4 months to check on progress. Contactus sooner with any significant deterioration, encouraged to contact us with any significant deterioration or medication intolerance. Patient vocalizes good understanding of the treatment plan. Valentín Sampson MD 8:05 AM 04/10/2024 documented in this encounter Nursing Notes * Radha Farias LPN - 04/10/2024 1:58 PM EDT Pt presents in office for cystoscopy C/o- incontinence, urgency Denied- blood in urine, burning PSA Results: Lab Results Component Value Date/Time PSA - [facility] 2.45 11/15/2023 03:05 PM PSA - [facility] 0.85 10/31/2020 12:45 PM PSA - [facility] 0.46 01/09/2015 08:58 AM PSA SCREENING 0.35 12/25/2009 08:54 AM PSA SCREENING 0.35 11/11/2008 09:51 AM documented in this encounter Plan of Treatment Upcoming Encounters Date Type Department Care Team (Late st Contact Info) Description 04/27/2024 2:00 PM EDT Office Visit [facility] [address] [place] [address] Eddie Ho MD [address] [place] [address] 06/26/2024 3:30 PM EST Office Visit Cardiology, [facility] [address] [address] Malathi Newman PA-C [address] [place] [address] 07/17/2024 3:20 PM EST Office Visit [facility] [address] [place] [address] Eddie Ho MD [address] [place] [address] 08/27/2024 2:45 PM EST Office Visit Urology, [facility] [address] [place] [address] Valentín Sampson MD [address] [place] [phone] 10/19/2024 2:00 PM EDT Office Visit Family Practice [facility] [address] [place] [address] Eddie Ho MD [address] [place] [address] Scheduled Orders Name Type Priority Associated Diagnoses Orde r Schedule CYSTOSCOPY Procedures Routine BPH with obstruction/lower urinary tract symptoms Ordered: 04/10/2024 Health Maintenance Due Date Last Done Comments [...] 06/28/2024 023, 04/16/2022, 07/02/2021, Additional history exists GFR 11/28/2024 11/29/2023, 06/02, 03/01/2023, Additional history exists O2 ASSESSMENT COMPLETED IN PAST YEAR FOR COPD 01/12/2025 01/13/2024 DTap/Tdap Vaccines (3 - Td or Tdap) [...] this encounter Medical Devices Implanted Type Area Clinical Data Analyst Device Identifier Shelf Expiration Date Model / Serial / Lot Cement Antibiotic Bone - [id number] Implanted:Qty: 2 on 06/21/2018 by Sridhar Grant MD at OR [facility] Right: Knee DESHAWN : ORTHOPAEDICS 12/29/2018 [id number] / / [id number] Triathlon Asyetric X3 Patell - [id number] Implanted:Qty: 1 on 06/21/2018 by Sridhar Grant MD at OR [facility] Right: Knee DESHAWN : ORTHOPAEDICS 03/15/2023 5551-G-[id number] / / [id number] Component Femoral Rt Size 5 T - [id number] Implanted:Qty: 1 on 06/21/2018 by Sridhar Grant MD at OR [facility] Right: Knee DESHAWN : ORTHOPAEDICS 12/10/2022 [id number] / / [id number] Knee Baseplate Mis Tib Tri 5 - [id number] Implanted:Qty: 1 on 06/21/2018 by Sridhar Grant MD at OR [facility] Right: Knee DESHAWN : ORTHOPAEDICS 01/12/2023 [id number]-M-[id number] / / [id number] Knee X3 Ins Pos Cs Sz5 9 - [id number] Implanted:Qty: 1 on 06/21/2018 by Sridhar Grant MD at OR [facility] Right: Knee DESHAWN : ORTHOPAEDICS 10/17/2022 [id number]-[id number] / / [id number] documented as of this encounter Visit Diagnoses Diagnosis BPH with obstruction/lower urinary tract symptoms- Primary Hypertrophy of prostate with urinary obstruction and other lower urinary tract symptoms (LUTS) documented in this encounter Administered Medications Inactive Administered Medications - up to 3 most recent administrations Medication Order MAR Action Action Date Dose Rate Site sulfamethoxazole-trimethoprim DS (Bactrim DS) 800-160 MG 1 Tablet 1 Tablet, Oral, ONCE, On Tue04/10/24 at 1500, For 1 dose Given 04/10/2024 2:24 PM EDT 1 Tablet documented in this encounter Advance Directives * [...] patient or by statute hierarchy) Care Teams Surgical Tech Relationship Specialty Start Date End Date Eddie Ho MD [address] [place] [address] PCP - General Family Medicine 07/18/14 documented as of this encounter
--- OUTSIDE RECORDS SUMMARY | 2024-07-27 13:21 | External Medical Summary ---
Author Name Unknown Address Unknown Organization [id number]:[facility] [place] [address] [facility] [place] [address] Laboratory Report Ordering Provider Test Date Status CLARYVIC 04/10/2024 14:37:03 Final Observation Date Value Abnormality Reference (Units ) Status HbA1C 04/10/2024 14:37:03 7.3 Above high normal 4. 0-5.6 (%) Final The use of HbA1c to monitor glycemic status is based on normal hemoglobin and HbA composition. This test should not be used in patients with abnormal hemoglobin that affects the half life of the red blood cell or the in vivo glycation rates. Glucose, estimated average 04/10/2024 14:37:03 163 Above high normal <126 (mg/dL) Marcelino mendes Performing Location [facility] [place] [address] [place] [facility] [place] [address]
--- OUTSIDE RECORDS SUMMARY | 2024-07-27 13:21 | External Medical Summary | Summary of Care ---
Author Name Unknown Organization [facility] Address [address] [place] [address] Phone [phone] Care Team Providers Care Material Distributor Name Role Phone Eddie Ruffin MD Primary Care Provider + Reason for Visit * Reason Comments Follow Up Encounter Details Date Type Department Care Team (Late st Contact Info) Description 03/09/2024 3:30 PM EDT Office Visit Cardiology, [facility] [address] [place] [address] Kana Somers PA-C [address] [place] [address] Chest pain at rest*; Dyslipidemia, goal LDL below 70; HTN, goal below 140/90; Hypertensive heart disease with chronic diastolic congestive heart failure ([facility]); Cardiac pacemaker in situ; SSS (sick sinus syndrome) (HCC); Chronic diastolic CHF (congestive heart failure) ([facility]); Coronary artery disease involving lone pine coronary artery of lone pine heart without angina pectoris Allergies Active Allergy Reactions Criticality Noted Date Comments Formoterol High 02/16/2022 Other reaction(s): RASH Lisinopril Cough Low 10/24/2012 Penicillins Other (Please comment) 08/15/2013 Family hx allergic reaction Simvastatin High 02/16/2022 Other reaction(s): RASH documented as of this encounter (statuses as of 03/12/2024) Medications Medication Sig Dispensed Refills Start Date [...] EVENING MEALS. 180 Tablet 3 04/19/2023 4 Active Vitamin B-12 1000 MCG Oral Tablet [...] 07/01/2023 Active Carvedilol 3.125 MG Oral Tablet (Coreg)Indication s:Old myocardial infarction Take 1 Tablet by mouth in the morning and 1 Tablet before bedtime with food. 60 Tablet 5 10/04/2023 Active Dexcom G7 Sensor Use 1 sensor every 10 days E 11.9 3 Each 11 10/17/2023 Active Dexcom G7 Cardiology Technician Device Use to read blood glucose [...] Extended Release 24 Hour (Imdur)Indication s:Atherosclerosis of lone pine coronary artery of lone pine heart without angina pectoris TAKE 1 TABLET [...] MCG/ACT Inhalation Aerosol Powder Breath Activated (umeclidinium [place]) inhale ONE puff DAILY. 30 Each 7 [...] as needed for Mild pain 60 Tablet 03/02/2024 Active Mirabegron ER 50 MG Oral Tablet Extended Release 24 Hour (Myrbetriq) Take 1 Tablet by mouth in the morning. 30 Tablet 6 11/15/2023 Discontinue d(Patient preference/ discontinua tion) documented as of this encounter (statuses as of 03/12/2024) Active Problems Problem Noted Date Diagnosed Date [...] - LAMA Self-Management plan o Other: call [facility] Exacerbation plan o Has not [...] test--referred for CATH @[facility]--mild nonobstructive CAD> patent stent. Cont med mgmt 08/14 BRIGITTE- mod BPH 08/14 TTE normal EF, Gr I saavedra Dys, EGD-dilated Schatzki ring 06/13 PFT--normal spirometry with low norm obstructive index. No response to dilator. Normal diffusing. Some air trapping, suggestive flow patterns for obstruction. Acute. HTN, goal below 130/80 05/02/2012 Coronary atherosclerosis of lone pine coronary kelby ry 03/06/2012 Overview: 1. S/p NSTEMI--CAD, NSTEMI , PCI with a bare metal stent to the OM1 on 02/03/12 at [facility] 2. Patent OM1 stent with mild nonobstructive CAD noted elsewhere via the 06/24/14 catheterization at [facility] following abnormal [...] as of this encounter (statuses as of 03/12/2024) Resolved Problems Problem Noted Date Diagnosed Date [...] airways disease. 2012 PFT-low normal 08/14 CT [facility]-upper lobe emphysema, possible basilar fibrosis Lung density on x-ray 06/04/20132013 Overview: 06/13 density -repeat CXR 1mo Overweight (BMI 25.0-29.9) 04/03/2013 0 04/28/2017 Cough 10/24/2012 05/25/2013 Acute bronchitis, antibiotics not indicated 10/11/2012 05/25/2013 Impacted cerumen 10/11/2012 04/28/2017 Dermatitis 10/11/2012 04/28/2017 HTN, goal below 140/80 03/20/201205/02 Overview: Per HTN Protocol #27. Dyslipidemia, goal LDL below 70 02/07/2012 08/11/2022 [employer] Other*[id number] 02/03/2012 09/07/2016 History of non-ST elevation myocardial [...] as of this encounter (statuses as of 03/12/2024) Immunizations Name Administration Dates Next Due COVID-19 [...] lent, No Preserve, IM 04/09/2016,05/14/2015 Seasonal Influenza, Split, I IV3, With Preserve, Inj 04/04/2014,04/20/2013,04/25/2012,05/04,05/14/2010,05/02/2009,05/03/2008 Seasonal Influenza, Trivalen t, Adjuvanted, 65+ yrs 04/09/2019 TD - Tetanus/Diptheria (ADULT) 08/01/2005 TD, [...] Sign Reading Time Taken Comments Blood Pressure 130/76 03/09/2024 3:29 PM EDT Pulse 68 03/09/2024 3:29 PM EDT Temperature - - Respiratory Rate 16 03/09/2024 3:29 PM EDT Oxygen Saturation - - Inhaled Oxygen Concentration - - Weight 89.5 kg (197 lb 4 oz) 03/09/2024 3:29 PM EDT Height - - Body Mass Index 29.13 02/17/2023 2:22 PM EDT documented in this [...] as of this encounter Progress Notes * Kana Somers PA-C - 03/09/2024 3:46 PM EDT History of Present Illness: Kaden Badillo is a 73 year old male here today for routine cardiology follow-up. Accompanied by daughter Codi Oreilly. Main issue is chronic right knee pain, stable ambulatory dysfunction. Left-sided chest discomfort in the evening when getting in bed and climbing over the wedge pillow. Patient inactive though without activity related chest pain, increased exertional dyspnea, palpitations, orthopnea, PND, edema, syncope, fevers or chills, melena or hematochezia. Limits fluid intake due to urinary incontinence. Notes taking regularly after observing elevated blood pressures in the evenings, with improvement. Problem List: ASCVD. History of NSTEMI , PCI with a bare metal stent to the OM1 on 02/03/12 at [facility]. Patent OM1 stent with mild nonobstructive CAD noted elsewhere via the 06/24/14 catheterization at [facility] following abnormal nuclear stress testing Nonischemic pharmacological [...] emphysema, interstitial lung disease/fibrosis, hypersomnia, followed by [facility]. Hypomagnesemia Status post elective right total knee replacement at [facility] on 06/21/2018. Erectile dysfunction BPH with LUTS Status post 11/07/2021 right knee PRP injection by Dr. Munoz Chronic low back pain. Anxiety Patient Active Problem List Diagnosis Sensorineural hearing loss, bilateral Type 2 diabetes mellitus with hemoglobin A1c goal of less than 8.0% (HCC) Coronary atherosclerosis of lone pine coronary artery HTN, goal below 130/80 Well adult exam BPH with obstruction/lower urinary tract symptoms MEDICATION USE AGREEMENT ANKITA (generalized anxiety disorder) Chronic 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 Nonproliferative diabetic retinopathy of both eyes (HCC) Gastro-esophageal reflux disease without esophagitis Occlusion and stenosis of bilateral carotid arteries Chronic diastolic CHF (congestive heart failure) ([facility]) Centrilobular emphysema (HCC) Pulmonary fibrosis (HCC) Dyslipidemia Lumbar degenerative disc disease Orthostatic hypotension S/P biventricular cardiac pacemaker procedure Hypertensive heart disease with chronic diastolic congestive heart failure (HCC) COPD, group C, by GOLD 2017 classification ([facility]) Old myocardial infarction Encephalomalacia Hemiplegia affecting right dominant side ([facility]) Type 2 diabetes mellitus with diabetic cataract, with long-term current use of insulin (HCC) SSS (sick sinus syndrome) ([facility]) MDD (major depressive disorder), recurrent episode, moderate ([facility]) Fatty liver Past Medical History: Diagnosis Date Arthritis of [...] Other diseases of nasal cavity and sinuses(478.19) 2005 Other dyspnea and respiratory abnormality 2006 Pulmonary fibrosis ([facility]) 08/06/2022 S/P biventricular cardiac pacemaker procedure Schatzki's ring Sensorineural hearing loss, bilateral 2006 noise induced possibly early presbycusis Status post total right knee replacement 06/22/2018 Subarachnoid hemorrhage ([facility]) 03/28/2008 Cerebral Hemorrhage Tobacco use disorder 10/26/2010 Type 2 diabetes mellitus with hemoglobin A1c goal of less than 8.0% ([facility]) 05/15/2009 2014 +microalb on max ARB ICD-10 update of inactive term Past Surgical History: Procedure Laterality Date ARTHO,SHOUL,W/ROTATOR CUFF Right 11/04/2015 Dr Johnson USERA ARTHROPLASTY KNEE TOTAL Right 06/21/2018 ARTHROPLASTY KNEE TOTAL performed by Sridhar Grant MD at [facility] CARDIAC CATH-CARDIOLOGY ONLY 06/2014 [facility]-mild CAD-nonobstruc CARPAL TUNNEL SURGERY 05/28/2014 NEUROPLASTY MEDIAN NERVE AT CARPAL TUNNEL performed by Sridhar Bernstein MD at OR [facility] CARPAL TUNNEL SURGERY Left 07/11/2014 NEUROPLASTY MEDIAN NERVE AT CARPAL TUNNEL performed by Sridhar Bernstein MD at [facility] COLONOSCOPY 04/2007 clear - repeat 10y COLONOSCOPY, DIAGNOSTIC (RECTUM) 09/18/2012 adenom polyps - repeat 3y COLONOSCOPY, DIAGNOSTIC (RECTUM) 02/24/2016 adenomatous polyp, diverticulosis, poor prep, repeat 2 yrs/COLONOSCOPY FLEXIBLE PROXIMAL DIAGNOSTICperformed by Shaheen Javed MD at ENDOSCOPY [facility] COLONOSCOPY, DIAGNOSTIC (RECTUM) 03/22/2018 adenomatous polyp, diverticulosis, repeat 5 yrs/COLONOSCOPY FLEXIBLE PROXIMAL DIAGNOSTIC performed by Shaheen Javed MD at ENDOSCOPY [facility] CORONARY ANGIOGRAPHY W/LEFT HEART CATH 02/03/2012 CORONARY ANGIOGRAPHY W/LEFT HEART CATH performed by Lazaro White MD at CARDIAC LABS [facility] CORONARY ANGIOGRAPHY W/LEFT HEART CATH 06/24/2014 CORONARY ANGIOGRAPHY W/LEFT HEART CATH performed by Kristen Andrade MD at CARDIAC LABS [facility] EGD, FLEXIBLE, DIAGNOSTIC 08/2013 Kris ring dilated. EGD, FLEXIBLE, DIAGNOSTIC 08/23/2013 ESOPHAGOGASTRODUODENOSCOPY (EGD), FLEXIBLE, TRANSORAL, DIAGNOSTIC performed by Shaheen Javed MD at ENDOSCOPY [facility] ARTHROSCOPY/ARTHROPLASTY Right LASER TRABECULOPLASTY 1997 Dr. Holguin Laser [facility] MISCELLANEOUS ORDER ([facility] ONLY) ACT 112 SIGNED 11/07/18 DR. STEVENS OPEN SKULL FOR EXPLORATION 03/2008 cerebellar hemorrhage evacuated PACEMAKER INSERTION PER 08/23/2022 Dr Apolinar Barcenas at [facility]. had 7sec pause prior REPAIR INITIAL INGUINAL HERNIA REDUCIBLE AGE 5 OR MORE bilat Family History Problem Relation Name Age of Onset Mental Disorder Mother dementia, 92 Heart Disorder Father AAA - age 74 No Known Problems Sister December No Known Problems Sister Latia not in touch. 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 Substance and Sexual Activity Alcohol use: No Comment: quit in 1992, had been heavy drinker Drug use: No Sexual activity: Yes Partners: Female Comment: . 1 daughter, 1 son, 2 granddaughter, 1 stepson w/ 2 greatnephews. Complete Review of Systems is as stated above, negative, or noncontributory. Review of patient's allergies indicates: Allergen Reactions [...] before bedtime with food. 60 Tablet 5 Insulin Glargine 100 UNIT/ML Subcutaneous Solution (Lantus) [...] MCG/ACT Inhalation Aerosol Powder Breath Activated (umeclidinium [place]) inhale ONE puff DAILY. 30 Each 7 [...] needed for Mild pain 60 Tablet 0 Dexcom G7 Sensor Use 1 sensor every 10 days E 11.9 3 Each 11 Dexcom G7 Cardiology Technician Device Use to read blood glucose values with dexcom G7 sensor E 11.9 1 Each 0 No current facility-administered medications for this visit. OBJECTIVE/PHYSICAL EXAMINATION: BP 130/76 (BP Site: Left Arm, BP Position: Sitting) | Pulse 68 | Resp 16 | Wt 89.5 kg (197 lb 4 oz)| BMI 29.13 kg/m | BSA 2.09 m Examined in a chair General: NAD. A&Ox3. YOMBA SHOSHONE. HENT: Sclera clear. No JVD. Lungs: Clear to auscultation. No wheeze. Cardiac: RRR. No murmurs. No rubs. or gallops Abdomen: +BS. Soft. Nontender. No organomegaly. Extremities: No edema. No clubbing. No cyanosis Neuro: Grossly normal exam Psych: Appropriate affect and insight. Data: April 29, 2022 Lexiscan Interpretation Summary (as per Dr. Banks): Lexiscan nuclear cardiac stress test negative for ischemia. Gated SPECT imaging reveals normal myocardial thickening and wallmotion. The left ventricular ejection fraction was calculated to be 64%. The stress EKG response is nondiagnostic due to the baseline repolarization changes which did not change significantly with pharmacologic stress. No significant arrhythmias were observed. May 28, 2022 TTE Interpretation Summary ([facility], Dr. Astorga): Compared to prior study, there was no significant change. The left ventricle is normal in size. There is moderate concentric LVH. NormalLV wall motion. Ejection fraction 60 to 65%. Grade 1 diastolic dysfunction. Aortic valve sclerosis,moderate, without significant aortic valve stenosis. No pericardial effusion. ASSESSMENT AND RECOMMENDATIONS/PLAN: Sick Sinus Syndrome. Status post 08/23/2022 dual chamber Medtronic pacemaker implantation by Dr. Barcenas. Pacemaker interrogation on January 25, 2024 demonstrated appropriate function, 13.6 years remaining longevity. Time in AT/AF: Less than 0.1%. Atrial paced 3.5%. Ventricular paced 1.1%. One hundred th irty-seven drop rate episodes noted. No VT. Brief episodes of paroxysmal atrial flutter/fibrillation via device interrogation (see September 2023 interrogation). Asymptomatic. Risks and benefits of anticoagulation discussed with all in agreement that the risks of anticoagulation are greater than the benefit. Given the PAF and the observed snoring as well as frequent apneic episodes, recommend evaluation for sleep apnea and/or nocturnal hypoxemia. Atypical chest pain. General measures advised. Further evaluation previously offered and declined. ASCVD. Nonischemic pharmacological stress testing last on April 29, 2022. Continue appropriate medical management. Hypertension. Patient with labile hypertension. BP has been acceptably controlled since taking Losartan regularly. Diastolic congestive heart failure. Compensated. Premature ventricular contractions. Asymptomatic. Quiescent . Dyslipidemia. LDL cholesterol 140 mg/dL on November 29, 2023 while off of atorvastatin 40 mg/day. Resumption of atorvastatin 40 mg/day in November 2023 resulted in weakness, medication transiently held x2 weeks then resumed at the reduced dose of 20 mg/day which patient is tolerating relatively well at [facility]. Bilateral internal carotid artery disease. Carotid duplex in September 2022 revealed stable mild bilateral internal carotid artery disease. Iron deficiency anemia. Continue Vitron-C. Check CBC. Past intracranial hemorrhage, requiring craniotomy, 2007 Type 2 diabetes mellitus. Followed by PCP. History of tobacco abuse, emphysema, interstitial lung disease/fibrosis. BPH with LUTS. Followed by Urology Ambulatory dysfunction. Cardiology follow-up in 3 months, as requested, or as needed. ER with emergencies. Kana Somers PA-C Department of Cardiology I spent a total of 30-39 minutes (exact time 30 mins) on the date of service in preparation, delivery, and documentation of the care provided to Kaden Badillo excluding any time spent in the performance of separately billed services. This visit involved medical care services related to at least one serious condition or complex condition requiring ongoing care. This chart was completed in part utilizing [employer] Speech Voice Recognition Software. Grammatical errors, random word insertions, prounoun errors, and incomplete sentences are an occasional consequence of this system due to software l imitations, ambient noise, and hardware issues. Any formal questions or concerns about the content,text, or information contained within the body of this dictation should be directly addressed to the provider for clarification. documented in this encounter Nursing Notes * Trena Sharpe CMA - 03/09/2024 3:28 PM EDT Examination Room: 2 Name: Kaden Badillo Date of : (1950). Reason for Visit: follow up Interim Hospitalization(s): denies Problems/Concerns: denies Chest Pain/SOB: denies [facility] Discussed: Yes [facility] a way you can [...] Care Team (Late st Contact Info) Description 03/14/2024 2:20 PM EDT Office Visit [facility] [address] [place] [phone] Eloisa Lozano, [address] [facility] [place] [address] 04/10/2024 2:00 PM EDT Office Visit Urology, [facility] [address] [facility] [place] [address] Valentín Sampson MD [address] [place] [id number] 04/27/2024 2:00 PM EDT Office Visit [facility] [address] [facility] [place] [address] Eddie Ruffin MD [address] [facility] [place] [address] 06/26/2024 3:30 PM EST Office Visit Cardiology, [facility] [address] [facility] [place] [address] Malathi Newman PA-C [address] [facility] [place] [id number] 07/17/2024 3:20 PM EST Office Visit [facility] [address] [facility] [place] [address] Eddie Ruffin MD [address] [facility] [place] [address] 10/19/2024 2:00 PM EDT Office Visit [facility] [address] [facility] [place] [address] Eddie Ruffin MD [address] [facility] [place] [address] Scheduled Orders Name Type Priority Associated Diagnoses Orde r Schedule BASIC METABOLIC PANEL Lab Routine HTN, goal below 140/90 Expected: 03/09/2024, Expires: 03/09/2025 Health Maintenance Due Date Last Done Comments Zoster Vaccines (3 of 3) 04/17/2021 02/20/2021, 04/02 Diabetic Foot Exam 02/20/2022 02/20/2021, 1 , 09/22/2018, Additional history exists Adult Wellness Visit 08/04/2022 08/04/2021 Depression Monitoring 08/04/2022 08/04/2021 Colonoscopy 03/22/2023 03/22/2018, 03/02, 02/24/2016, Additional history exists COVID-19 Vaccine (3 - season) 2023 11/05/2020, 10/13/2020 Diabetic Eye Exam 01/29/2024 01/28/2023, , 06/22/2021, Additional history exists Influenza Vaccine (FLU shot) (#1) 2024 07/01/2023, 04/16/2022, 04/29/2021, Additional history exists HbA1c 05/30/2024 11/29/2023, 06/02, 08/31/2022, Additional history exists Albumin/Creatinine Ratio 06/28/2024 023, 04/16/2022, 07/02/2021, Additional history exists GFR 11/28/2024 11/29/2023, 06/02, 03/01/2023, Additional history exists O2 ASSESSMENT COMPLETED IN PAST YEAR FOR COPD 01/12/2025 01/13/2024 DTaP,Tdap,and Td Vaccines (3 - Td or Tdap) 08/27/2031 [...] this encounter Medical Devices Implanted Type Area Straw Hat Washer Operator Device Identifier Shelf Expiration Date Model / Serial / Lot Cement Antibiotic Bone - [id number] Implanted:Qty: 2 on 06/21/2018 by Sridhar Grant MD at OR [facility] Right: Knee DESHAWN : ORTHOPAEDICS 12/29/2018 [id number] / / [id number] Triathlon Asyetric X3 Patell - [id number] Implanted:Qty: 1 on 06/21/2018 by Sridhar Grant MD at OR [facility] Right: Knee DESHAWN : ORTHOPAEDICS 03/15/2023 [id number]-G-[id number] / / [id number] Femoral Rt Size 5 T - [id number] Implanted:Qty: 1 on 06/21/2018 by Sridhar Grant MD at OR [facility] Right: Knee DESHAWN : ORTHOPAEDICS 12/10/2022 [id number] / / [id number] Knee Baseplate Mis Tib Tri 5 - [id number] Implanted:Qty: 1 on 06/21/2018 by Sridhar Grant MD at OR [facility] Right: Knee DESHAWN : ORTHOPAEDICS 01/12/2023 [id number] / / [id number] Knee X3 Ins Pos Cs Sz5 9 - [id number] Implanted:Qty: 1 on 06/21/2018 by Sridhar Grant MD at OR [facility] Right: Knee DESHAWN : ORTHOPAEDICS 10/17/2022 [id number] / / [id number] documented as of this encounter Visit Diagnoses Diagnosis Chest pain at rest- Primary Chest pain, unspecified Dyslipidemia, goal LDL below 70 Other and unspecified hyperlipidemia HTN, goal below 140/90 Unspecified essential hypertension Hypertensive heart disease with chronic diastolic congestive heart failure (HCC) Cardiac pacemaker in situ SSS (sick sinus syndrome) (HCC) Sinoatrial node dysfunction Chronic diastolic CHF (congestive heart failure) (HCC) Chronic diastolic heart failure Coronary artery disease involving lone pine coronary artery of lone pine heart without angina pectoris documented in this encounter Advance Directives * [...] patient or by statute hierarchy) Care Teams Material Distributor Relationship Specialty Start Date End Date Eddie Ruffin MD [address] [facility] [place] [address] PCP - General Family Medicine 07/18/14 documented as of this encounter
--- OUTSIDE RECORDS SUMMARY | 2024-07-27 13:21 | External Medical Summary | Summary of Care ---
Author Name Unknown Organization [facility] Address [address] [place] [address] Phone [phone] Care Team Providers Care Clinic Office Manager Name Role Phone Eddie Ho MD Primary Care Provider + Reason for Visit * Reason Comments Medication Refill Encounter Details Date Type Department Care Team (Late st Contact Info) Description 04/10/2024 Refill Family Practice [facility] [address] [place] [id number] Mary Lou Kennedy MD [address] [place] [phone] Old myocardial infarction Allergies Active Allergy Reactions Criticality Noted Date [...] 3 Each 11 10/17/2023 Active Dexcom G7 Insurance Policy Clerk Device Use to read blood glucose [...] Extended Release 24 Hour (Imdur)Indication s:Atherosclerosis of poarch coronary artery of poarch heart without angina pectoris TAKE 1 TABLET [...] MCG/ACT Inhalation Aerosol Powder Breath Activated (umeclidinium [place]) inhale ONE puff DAILY. 30 Each 7 [...] with food. 60 Tablet 11 04/11/2024 Active Carvedilol 3.125 MG Oral Tablet (Coreg)Indication s:Old myocardial infarction Take 1 Tablet by mouth in the morning and 1 Tablet before bedtime with food. 60 Tablet 5 10/04/2023 Discontinue d(Refill) documented as of this encounter [...] - LAMA Self-Management plan o Other: call [facility] Exacerbation plan o Has not required [...] prep) 06/14 abnormal stress test--referred for CATH @[facility]--mild nonobstructive CAD> patent stent. Cont med mgmt 08/14 BRIGITTE- mod BPH 08/14 TTE normal EF, Gr I saavedra Dys, EGD-dilated Schatzki ring 06/13 PFT--normal spirometry with low norm obstructive index. No response to dilator. Normal diffusing. Some air trapping, suggestive flow patterns for obstruction. Acute. HTN, goal below 130/80 05/02/2012 Coronary atherosclerosis of poarch coronary kelby ry 03/06/2012 Overview: 1. S/p NSTEMI--CAD, NSTEMI , PCI with a bare metal stent to the OM1 on 02/03/12 at [facility] 2. Patent OM1 stent with mild nonobstructive CAD noted elsewhere via the 06/24/14 catheterization at [facility] following abnormal nuclear stress testing [...] witho ut cerebral infarction 09/22/2018 08/11/2022 senior care (current) use of insulin 08/08/2018 08/11/2022 Old [...] disease. 2012 PFT-low normal 08/14 CT [facility]-upper lobe emphysema, possible basilar fibrosis Lung density on x-ray 06/04/20132013 Overview: 06/13 density -repeat CXR 1mo Overweight (BMI 25.0-29.9) 04/03/2013 0 04/28/2017 Cough 10/24/2012 05/25/2013 Acute bronchitis, antibiotics not indicated 10/11/2012 05/25/2013 Impacted cerumen 10/11/2012 04/28/2017 Dermatitis 10/11/2012 04/28/2017 HTN, goal below 140/80 03/20/201205/02 Overview: Per HTN Protocol #27. Dyslipidemia, goal LDL below 70 02/07/2012 08/11/2022 [facility] Other*[id number] 02/03/2012 09/07/2016 History of non-ST elevation myocardial [...] Telephone Encounter - Eddie Ho MD - 04/11/2024 5:26 PM EDTSigned Prescriptions: Disp Refills Carvedilol 3.125 MG Oral Tablet (Coreg) 60 Tab*11 Sig: Take 1 Tablet by mouth in the morning and 1 Tablet before bedtime with food. Authorizing Provider: EDDIE HO * Telephone Encounter - Clarissa Lay OKKAM - 04/11/2024 8:05 AM EDT Pending Prescriptions: Disp Refills Carvedilol 3.125 MG Oral Tablet (Coreg) 60 Tab*5 Sig: Take 1 Tablet by mouth in the morning and 1 Tablet before bedtime with food. documented in this encounter Plan of Treatment Upcoming Encounters Date Type Department Care Team (Late st Contact Info) Description 04/27/2024 2:00 PM EDT Office Visit Family Practice [facility] [address] [place] [address] Eddie Ho MD [address] [place] [phone] 06/26/2024 3:30 PM EST Office Visit Cardiology, [facility] [address] [place] [address] Malathi Newman PA-C [address] [place] [address] 07/17/2024 3:20 PM EST Office Visit [facility] [address] [place] [address] Eddie Ho MD [address] [place] [address] 08/27/2024 2:45 PM EST Office Visit Urology, [facility] [address] [facility] [address] Valentín Sampson MD [address] [place] [address] 10/19/2024 2:00 PM EDT Office Visit [facility] [address] [facility] [place] [address] Eddie Ho MD [address] [place] [address] Health Maintenance Due Date Last Done Comments [...] FOR COPD 01/12/2025 01/13/2024 GFR 04/10/2025 04/10/2024, 043 , 06/28/2023, Additional history exists DTap/Tdap Vaccines [...] this encounter Medical Devices Implanted Type Area Fruit Or Nut Grower Device Identifier Shelf Expiration Date Model / Serial / Lot Cement Antibiotic Bone - [id number] Implanted:Qty: 2 on 06/21/2018 by Sridhar Grant MD at OR [facility] Right: Knee DESHAWN : [employer] 12/29/2018 [id number] / / [id number] Triathlon Asyetric X3 Patell - [id number] Implanted:Qty: 1 on 06/21/2018 by Sridhar Grant MD at OR [facility] Right: Knee DESHAWN : ORTH[employer] 03/15/2023 [id number]-G-350 / / [id number] Component Femoral Rt Size 5 T - [id number] Implanted:Qty: 1 on 06/21/2018 by Sridhar Grant MD at OR [facility] Right: Knee [employer]HAWN : OR[employer] 12/10/2022 5510-F-[id number] / / [id number] Knee Baseplate Mis Tib Tri 5 - [id number] Implanted:Qty: 1 on 06/21/2018 by Sridhar Grant MD at OR [facility] Right: Knee DESHAWN : ORTH[employer] 01/12/2023 5520-M-[id number] / / [id number] Knee X3 Ins Pos Cs Sz5 9 - [id number] Implanted:Qty: 1 on 06/21/2018 by Sridhar Grant MD at OR [facility] Right: Knee DESHAWN : ORTH[employer] 10/17/2022 [id number] / / [id number] documented as of this encounter Visit Diagnoses Diagnosis Old myocardial infarction documented in this encounter Advance Directives * [...] patient or by statute hierarchy) Care Teams Clinic Office Manager Relationship Specialty Start Date End Date Eddie Ho MD [address] [place] [id number] PCP - General Family Medicine 07/18/14 documented as of this encounter
--- OUTSIDE RECORDS SUMMARY | 2024-07-27 13:21 | External Medical Summary ---
Author Name Unknown Address Unknown Organization K01:[facility] - [address] [place] [address] Laboratory Report Ordering Provider Test Date Status VIC MEANS 04/10/2024 14:37:03 Final Observation Date Value Abnormality Reference (Units) Status PARAPROTEIN NORMAL/ABNORMAL 04/10/2024 14:37:03 Normal Normal Final Immunofixation for Serum or Plasma 04/10/2024 14:37:03 No monoclonal gammopathy detected. Final Performing Location [facility] - [address] [place] [address]
--- OUTSIDE RECORDS SUMMARY | 2024-07-27 13:21 | External Medical Summary | Summary of Care ---
Author Name Unknown Organization [facility] Address [address] [place] [address] Phone [phone] Care Team Providers Care Casting Machine Adjuster Name Role Phone Eddie Ruffin MD Primary Care Provider + Encounter Details Date Type Department Care Team (Late st Contact Info) Description 04/10/2024 Medication Management [facility] [address] [place] [address] Ebony Rubio, [facility] [address] [place] [address] Allergies Active Allergy Reactions Criticality Noted Date [...] 3 Each 11 10/17/2023 Active Dexcom G7 Reset Merchandiser Device Use to read blood glucose values [...] Extended Release 24 Hour (Imdur)Indications :Atherosclerosis of [place] coronary artery of [...] of less than 8.0% ([facility]) Take 1 Tablet by mouth in the morning 30 minutes before a meal. 30 Tablet 5 12/30/2023 Active Pantoprazole Sodium 40 MG Oral Tablet Delayed Release (Protonix)Indicati ons:Esophageal obstruction TAKE 1 TABLET BY MOUTH DAILY. 90 Tablet 3 01/03/2024 Active Incruse Ellipta 62.5 MCG/ACT Inhalation Aerosol Powder Breath Activated (umeclidinium [place]) inhale ONE puff DAILY. 30 Each 7 [...] - LAMA Self-Management plan o Other: call [facility] Exacerbation plan o Has not [...] stent to the OM1 on 02/03/12 at [facility] 2. Patent OM1 stent with [...] disease witho ut cerebral infarction 09/22/2018 08/11/2022 shelter (current) use of insulin 08/08/2018 08/11/2022 Old MS (myocardial infarction) 07/03/2018 08/08/2018 Cataract, diabetic 07/03/2018 [...] below 70 02/07/2012 08/11/2022 [facility] Other*[id number] 02/03/2012 09/07/2016 History of non-ST elevation myocardial [...] as of this encounter Progress Notes * Ebony Rubio, [facility] - 04/10/2024 5:17 PM EDT Kaden Flores Demarco is a 73 year old male. TMR Interventions Incomplete Encounter MTPs No medication therapy recommendations to display Complete Encounter MTPs COPD, group C, by GOLD 2017 classification (HCC) Current Medication: Albuterol Sulfate HFA 108 (90 Base) MCG/ACT Inhalation Aerosol Solution Rationale: Untreated condition - Needs additional medication therapy - Indication Recommendation: Continue to Monitor Status: Accepted - no CPA Needed Current Medication: Incruse Ellipta 62.5 MCG/ACT Inhalation Aerosol Powder Breath Activated (umeclidinium [place]) Rationale: Patient Education - Needs Medication Assessment - Adherence Recommendation: Provide Education Status: Accepted - no CPA Needed Type 2 diabetes mellitus with hemoglobin A1c goal of less than 8.0% (HCC) Current Medication: glipiZIDE 10 MG Oral Tablet (Glucotrol) Rationale: Medication requires monitoring - Needs additional monitoring - Safety Recommendation: Provide Education Status: Accepted - no CPA Needed Assessment & Plan Indication, effectiveness, safety and convenience of his medications were reviewed today. The patient's medical conditions were assessed, evaluated, and deemed meeting goals of drug therapy, with thefollowing exceptions. Ebony Mickey Rubio, [facility] 04/10/2024, 5:17 PMKaden Badillo is a 73 year old male. Objective: Review of patient's allergies indicates: Allergen Reactions Formoterol Other reaction(s): RASH Simvastatin Other reaction(s): RASH Penicillins Other (Please comment) Family hx allergic reaction Lisinopril Cough Current Outpatient Medications - WARNING: List may be incomplete due to filtering Medication Sig Dispense Refill Finasteride 5 MG Oral Tablet (Proscar) Take 1 Tablet by mouth in the morning. 90 Tablet 3 HYDROcodone-Acetaminophen 5-325 MG Oral Tablet Take 1 Tablet by mouth every 6 hours as needed for Mild pain 60 Tablet 0 Diclofenac Sodium 1 % External Gel (Voltaren) Apply 4 g topically to affected area 4 times a day asneeded (Pain--apply to knees). 300 g 5 Tamsulosin HCl 0.4 MG Oral Capsule (Flomax) Take 1 Capsule by mouth in the morning. 90 Capsule 1 Clobetasol Propionate 0.05 % External Solution Apply topically to affected area 2 times a day. To affected area for up to two weeks. 50 mL 1 Losartan Potassium 25 MG Oral Tablet (Cozaar) Take 1 Tablet by mouth in the morning. 90 Tablet 3 Incruse Ellipta 62.5 MCG/ACT Inhalation Aerosol Powder Breath Activated (umeclidinium [place]) inhale ONE puff DAILY. 30 Each 7 Pantoprazole Sodium 40 MG Oral Tablet Delayed Release (Protonix) TAKE 1 TABLET BY MOUTH DAILY. 90 Tablet 3 glipiZIDE 10 MG Oral Tablet (Glucotrol) Take 1 Tablet by mouth in the morning 30 minutes before a meal. 30 Tablet 5 LORazepam 1 MG Oral Tablet (Ativan) TAKE 1 TABLET BY MOUTH UP TO TWICE DAILY FOR ANXIETY/INSOMNIA. 60 Tablet 5 Atorvastatin Calcium 20 MG Oral Tablet (Lipitor) Take 1 Tablet by mouth in the morning. Do not start until 12/21/23. 100 Tablet 3 Vitron-C 65-125 MG Oral Tablet (Iron-Vitamin C 65-125 mg per tab) Take 1 Tablet by mouth once a dayon Tuesday, Tuesday, and Tuesday only. Insulin Glargine 100 UNIT/ML Subcutaneous Solution (Lantus) INJECT 55 UNITS UNDER THE SKIN AT BEDTIME 50 mL 1 Dexcom G7 Reset Merchandiser Device Use to read blood glucose values with dexcom G7 sensor E 11.9 1 Each 0 Dexcom G7 Sensor Use 1 sensor every 10 days E 11.9 3 Each 11 Carvedilol 3.125 MG Oral Tablet (Coreg) Take 1 Tablet by mouth in the morning and 1 Tablet before bedtime with food. 60 Tablet 5 Polyethylene Glycol 3350 17 GM/SCOOP Oral Powder (GNP ClearLax) USE 1 CAPFUL UP TO 3 TIMES DAILY FOR CONSTIPATION 238 g 11 metFORMIN HCl 1000 MG Oral Tablet (Glucophage) TAKE 1 TABLET BY MOUTH TWICE DAILY WITH MORNING AND EVENING MEALS. 180 Tablet 3 Magnesium Oxide -Mg Supplement 400 (240 Mg) MG Oral Tablet (Mag-Ox) Take 1 Tablet by mouth in the morning and 1 Tablet before bedtime. 180 Tablet 3 EQ Fiber Powder Oral Powder Take by mouth. Fleet Liquid Glycerin Supp 5.4 GM/DOSE Rectal Enema (Glycerin (Laxative)) Administer into the rectum. Albuterol Sulfate HFA 108 (90 Base) MCG/ACT Inhalation Aerosol Solution Inhale 2 Puffs by mouth every 6 hours as needed for Cough, Shortness of Breath or Wheezing. (Patient taking differently: Inhale2 Puffs by mouth every 6 hours as needed for Cough, Shortness of Breath or Wheezing.) 18 g 2 Ammonium Lactate 12 % External Cream Apply topically to affected area 2 times a day. To affected area. 385 g 11 Triamcinolone Acetonide 0.1 % External Cream (Aristocort) Apply topically to affected area 2 times a day. To affected area. Stomach rash 453.6 g 5 Fluocinolone Acetonide Scalp 0.01 % External Oil Apply to scalp before beed once weekly for 3 totaltreatments 118.28 mL 0 Nitroglycerin 0.6 MG Sublingual Tablet Sublingual (Nitrostat) Place 1 Tablet under the tongue every5 minutes as needed. Aspirin 81 MG Oral Tablet Delayed Release Take 1 Tablet by mouth in the morning. Isosorbide Mononitrate ER 30 MG Oral Tablet Extended Release 24 Hour (Imdur) TAKE 1 TABLET BY MOUTHIN THE MORNING 30 Tablet 11 Sertraline HCl 100 MG Oral Tablet (Zoloft) Take 1.5 Tablets by mouth in the morning. 45 Tablet 5 Vitamin B-12 1000 MCG Oral Tablet (Cyanocobalamin) Take 1 Tablet by mouth in the morning. 100 Tablet 3 Immunization History Administered Date(s) Administered COVID-19 mRNA, LNP-s, No Preserve, 2-Dose Series (Moneero) 10/13/2020, 11/05/2020 H1N1 2009 Influenza, IM 09/18/2009 Pneumococcal Conjugate Vacc, 13 Valent (Prevnar) 02/11/2015 Pneumococcal Polysaccharide PPV23 (Pneumovax) 03/12/2009, 08/01/2015, 04/09/2016 Season Influenza, Quad, PF, Adjuvanted, 65+ Yrs, IM (FLUAD) 05/06/2020 Seasonal Influenza, PF, 6 M & above, IM , (FluLaval or Fluzone) 04/28/2017, 04/07/2018 Seasonal Influenza, Quadrivalent Hd (Fluzone Hd) 04/29/2021, 04/16/2022, 07/01/2023 Seasonal Influenza, Quadrivalent, No Preserve, IM 05/14/2015, 04/09/2016 Seasonal Influenza, Trivalent, (IIV3), with Preserv, (Fluzone) 05/03/2008, 05/02/2009, 05/14/2010, 05/04/2011, 04/25/2012, 04/20/2013, 04/04/2014 Seasonal Influenza, Trivalent, Adjuvanted, 65+ YRS, PF, (Fluad) 04/09/2019 TD - Tetanus/Diptheria (ADULT) 08/01/2005 TD, Preservative Free 08/01/2005 TDAP (age 10 and older)(Boostrix) 08/27/2021 TDAP, Age 7 and older, IM (Adacel) 07/05/2011 Varicella Zoster Vaccine (Adult) 04/28/2017 Zoster Vaccine Recombinant (Shingrix) 02/20/2021 TMR Interventions Incomplete Encounter MTPs No medication therapy recommendations to display Complete Encounter MTPs COPD, group C, by GOLD 2017 classification ([facility]) Current Medication: Albuterol Sulfate HFA 108 (90 Base) MCG/ACT Inhalation Aerosol Solution Rationale: Untreated condition - Needs additional medication therapy - Indication Recommendation: Continue to Monitor Status: Accepted - no CPA Needed Current Medication: Incruse Ellipta 62.5 MCG/ACT Inhalation Aerosol Powder Breath Activated (umeclidinium [place]) Rationale: Patient Education - Needs Medication Assessment - Adherence Recommendation: Provide Education Status: Accepted - no CPA Needed Type 2 diabetes mellitus with hemoglobin A1c goal of less than 8.0% ([facility]) Current Medication: glipiZIDE 10 MG Oral Tablet (Glucotrol) Rationale: Medication requires monitoring - Needs additional monitoring - Safety Recommendation: Provide Education Status: Accepted - no CPA Needed Assessment & Plan Indication, effectiveness, safety and convenience of his medications were reviewed today. The patient's medical conditions were assessed, evaluated, and deemed meeting goals of drug therapy, with thefollowing exceptions. Additional Notes: Watch for signs of low blood sugar such as dizziness, sweating, shakiness, blurred vision, etc and alert a medical provider if juice or glucose tablets do not show any improvement Self monitor COPD progress and alert PCP if Incruse and the rescue inhaler do not provide adequate coverage Summary Time Spent: No Previous Data Supervising pharmacist who provided the service: No Previous Data Takeaway Information Who was the recipient of the CMR service: beneficiary Language Template for the Patient Takeaway: [place] I attest that I have reviewed and updated the patient's conditions, allergies, and medications to the best of my ability. Patient provided medication list gathered by: Ebony Rubio RPh 04/10/2024, 5:17 PM documented in this encounter Miscellaneous Notes * MTM To-Do-List - Ebony Rubio RPh - 04/10/2024 5:31 PM EDT Images from the original note were not included. What we talked about: What I should do: The importance of taking your medication as prescribed Your medicine works best when taken as prescribed. It can be hard to remember to take daily medications. Consider making it a part of your daily routine. Pair taking your medication with something you do every day, like brushing your teeth or eating a meal. Consider setting daily alarms to help remind yourself when it is time to take your medicine. Using a pill box can also help you organize your medicines. Pill boxes allow you to fill each day slot with your daily medicine and help you track when your next dose is due. What we talked about: What I should do: Alerting pharmacist of any OTC items that are not reported Keep medication lists up to date What we talked about: What I should do: Needs Medication Assessment Monitor how well the Incruse inhaler and rescue inhaler work for managing your symptoms of COPD andhow many days a week a rescue inhaler is needed What we talked about: What I should do: Needing additional monitoring Self monitor for signs of low blood sugar such as shakiness, dizziness, blurred vision, etc. And alert medical personnel if juice, glucose tabs, etc do not provide relief * [facility] Personal Medication List - Ebony Rubio RPh - 04/10/2024 5:14 PM EDT Medication How I take it Why I use it Prescriber Albuterol Sulfate HFA 108 (90 Base) MCG/ACT Inhalation Aerosol Solution Inhale 2 Puffs by mouth every 6 hours as needed for Cough, Shortness of Breath or Wheezing. COPD Jorgito Barajas DO Ammonium Lactate 12 % External Cream Apply topically to affected area 2 times a day. To affected area. Skin Jorgito Barajas, DO Aspirin 81 MG Oral Tablet Delayed Release Take 1 Tablet by mouth in the morning. Blood thinner Self Atorvastatin Calcium 20 MG Oral Tablet (Lipitor) Take 1 Tablet by mouth in the morning. Do not start until 12/21/23. Cholesterol Kana S Yonis, PA-C Carvedilol 3.125 MG Oral Tablet (Coreg) Take 1 Tablet by mouth in the morning and 1 Tablet before bedtime with food. Previous heart attack Mary Lou Kennedy MD Clobetasol Propionate 0.05 % External Solution Apply topically to affected area 2 times a day. To affected area for up to two weeks. Scalp health Eddie Ruffin MD Dexcom G7 Reset Merchandiser Device Use to read blood glucose values with dexcom G7 sensor E 11.9 Diabetes Eddie Ruffin MD Dexcom G7 Sensor Use 1 sensor every 10 days E 11.9 Diabetes Eddie Ruffin MD Diclofenac Sodium 1 % External Gel (Voltaren) Apply 4 g topically to affected area 4 times a day asneeded (Pain--apply to knees). Joint pain/arthritis Eddie Ruffin MD EQ Fiber Powder Oral Powder Take by mouth. constipation Self Finasteride 5 MG Oral Tablet (Proscar) Take 1 Tablet by mouth in the morning. Prostate Valentín Sampson MD Fleet Liquid Glycerin Supp 5.4 GM/DOSE Rectal Enema (Glycerin (Laxative)) Administer into the rectum. constipation Self Fluocinolone Acetonide Scalp 0.01 % External Oil Apply to scalp before beed once weekly for 3 totaltreatments Skin health Kenneth Guevara MD glipiZIDE 10 MG Oral Tablet (Glucotrol) Take 1 Tablet by mouth in the morning 30 minutes before a meal. Diabetes Eddie Ruffin MD HYDROcodone-Acetaminophen 5-325 MG Oral Tablet Take 1 Tablet by mouth every 6 hours as needed for Mild pain Arthritis Eddie Ruffin MD Incruse Ellipta 62.5 MCG/ACT Inhalation Aerosol Powder Breath Activated (umeclidinium [place]) inhale ONE puff DAILY. COPD Eddie Ruffin MD Insulin Glargine 100 UNIT/ML Subcutaneous Solution (Lantus) INJECT 55 UNITS UNDER THE SKIN AT BEDTIME Diabetes Eddie Ruffin MD LORazepam 1 MG Oral Tablet (Ativan) TAKE 1 TABLET BY MOUTH UP TO TWICE DAILY FOR ANXIETY/INSOMNIA. Anxiety Eddie Ruffin MD Losartan Potassium 25 MG Oral Tablet (Cozaar) Take 1 Tablet by mouth in the morning. High blood pressure Kana Somers PA-C Magnesium Oxide -Mg Supplement 400 (240 Mg) MG Oral Tablet (Mag-Ox) Take 1 Tablet by mouth in the morning and 1 Tablet before bedtime. Low Magnesium Eddie Ruffin MD metFORMIN HCl 1000 MG Oral Tablet (Glucophage) TAKE 1 TABLET BY MOUTH TWICE DAILY WITH MORNING AND EVENING MEALS. Diabetes Charles Patti King DO Nitroglycerin 0.6 MG Sublingual Tablet Sublingual (Nitrostat) Place 1 Tablet under the tongue every5 minutes as needed. chest pain Self Pantoprazole Sodium 40 MG Oral Tablet Delayed Release (Protonix) TAKE 1 TABLET BY MOUTH DAILY. Acidreflux Eddie Ruffin MD Polyethylene Glycol 3350 17 GM/SCOOP Oral Powder (GNP ClearLax) USE 1 CAPFUL UP TO 3 TIMES DAILY FOR CONSTIPATION constipation Eddie Ruffin MD Tamsulosin HCl 0.4 MG Oral Capsule (Flomax) Take 1 Capsule by mouth in the morning. Prostate healthPaul Dragan Ruffin MD Triamcinolone Acetonide 0.1 % External Cream (Aristocort) Apply topically to affected area 2 times a day. To affected area. Stomach rash Skin condition Kana Somers PA-C Vitron-C 65-125 MG Oral Tablet (Iron-Vitamin C 65-125 mg per tab) Take 1 Tablet by mouth once a dayon Tuesday, Tuesday, and Tuesday only. Low Iron Self documented in this encounter Plan of Treatment Upcoming Encounters Date Type Department Care Team (Late st Contact Info) Description 04/27/2024 2:00 PM EDT Office Visit Family Practice [facility] [address] [place] [address] Eddie Ruffin MD [address] [place] [address] 06/26/2024 3:30 PM EST Office Visit Cardiology, [facility] [address] [place] [address] Malathi Newman PA-C [address] [place] [address] 07/17/2024 3:20 PM EST Office Visit [facility] [address] [facility] [place] [address] Eddie Ruffin MD [address] [place] [address] 08/27/2024 2:45 PM EST Office Visit Urology, [facility] [address] [facility] [place] [address] Valentín Sampson MD [address] [place] [address] 10/19/2024 2:00 PM EDT Office Visit [facility] [address] [facility] [place] [address] Eddie Ruffin MD [address] [facility] [place] [address] Health Maintenance Due Date Last Done Comments [...] this encounter Medical Devices Implanted Type Area Grinding Room Supervisor Device Identifier Shelf Expiration Date Model / Serial / Lot Cement Antibiotic Bone - [id number] [place]planted:Qty: 2 on 06/21/2018 [place] S[place] [facility] [place]HAWN : ORTHOPAED[employer] 12/29/2018 [id number] / / [id number] [facility] Patell - [id number] Implanted:Qty: 1 on 06/21/2018 by Sridhar Grant [place] [facility] [place]HAWN : ORTHOPAEDICS 03/15/2023 5551-G-350 / / [id number] Femoral Rt Size 5 T - [id number] Implanted:Qty: 1 on 06/21/2018 by Sridhar Grant [place] [facility] [place] [place] [employer]HAWN : ORTHOPAEDICS 12/10/2022 [id number] / / [id number] Knee Baseplate Mis Tib Tri 5 - [id number] Implanted:Qty: 1 on 06/21/2018 by Sridhar Grant [place] [facility] [place]nee DESHAWN : ORTHOPAEDICS 01/12/2023 [id number] / / [id number] Knee X3 Ins Pos Cs Sz5 9 - [id number] Implanted:Qty: 1 on 06/21/2018 by Sridhar Grant [place] [facility] [place]HAWN : ORTHOPAEDICS 10/17/2022 [id number] / / [id number] documented as of this encounter Advance Directives [...] patient or by statute hierarchy) Care Teams Casting Machine Adjuster Relationship Specialty Start Date End Date Eddie Ruffin MD [address] [place] [address] PCP - General Family Medicine 07/18/14 documented as of this encounter
--- OUTSIDE RECORDS SUMMARY | 2024-07-27 13:21 | External Medical Summary ---
Author Name Unknown Address Unknown Organization [facility] [address] [place] [address] Laboratory Report Ordering Provider Test Date Status DILIP SAM 04/10/2024 14:37:03 Final Observation Date Value Abnormality Reference (Units ) Status BUN 04/10/2024 14:37:03 17 6-20 (mg/dL) Final Creatinine 04/10/2024 14:37:03 1.2 0.6-1.2 (mg/dL) Final Glomerular filtration rate/1.73 sq M.predicted [Volume Rate/Area] in Serum, Plasma or Blood by Creatinine-based formula (CKD-EPI) 04/10/2024 14:37:03 61 >=60 (mL/min) Final eGFR is calculated based on the CKD-EPI 2020 equation. Sodium 04/10/2024 14:37:03 138 135-146 (m mol/L) Final Potassium 04/10/2024 14:37:03 4.6 3.5-5.1 (m mol/L) Final Cl 04/10/2024 14:37:03 100 98-107 (mm ol/L) Final CO2 04/10/2024 14:37:03 24 22-32 (mmo l/L) Final Anion gap 04/10/2024 14:37:03 14 7-15 (mmol /L) Final Glucose 04/10/2024 14:37:03 221 Above high normal 70 -120 (mg/dL) Final Calcium 04/10/2024 14:37:03 10.1 8.4-10.2 ( mg/dL) Final Performing Location [facility] [address] [place] [address]
--- OUTSIDE RECORDS SUMMARY | 2024-07-27 13:21 | External Medical Summary | Summary of Care ---
Author Name Unknown Organization [facility] Address [address] [place] [address] Phone [phone] Care Team Providers Care Industrial Maintenance Repairer Name Role Phone Eddie Ho MD Primary Care Provider + Reason for Visit * Reason Comments Medication Refill Encounter Details Date Type Department Care Team (Late st Contact Info) Description 03/31/2024 Refill Family Practice [facility] [address] [place] [address] Eddie Ho MD [address] [place] [address] MEDICATION USE AGREEMENT; Arthritis of right knee Allergies Active Allergy Reactions Criticality Noted Date Comments Formoterol High 02/16/2022 Other reaction(s): RASH Lisinopril Cough Low 10/24/2012 Penicillins Other (Please comment) 08/15/2013 Family hx allergic reaction Simvastatin High 02/16/2022 Other reaction(s): RASH documented as of this encounter (statuses as of 04/03/2024) Medications Medication Sig Dispensed Refills Start Date [...] 3 Each 11 10/17/2023 Active Dexcom G7 Compressed Air Pile Driver Operator Device Use to read blood glucose [...] Extended Release 24 Hour (Imdur)Indication s:Atherosclerosis of [place] coronary artery of [place] heart without angina pectoris TAKE 1 TABLET BY MOUTH IN THE MORNING 30 Tablet 12/02/2023 Active Vitron-C 65-125 MG Oral Tablet [...] MCG/ACT Inhalation Aerosol Powder Breath Activated (umeclidinium [place]) inhale ONE puff DAILY. 30 Each 7 [...] for Mild pain 60 Tablet 04/03/2024 Active HYDROcodone-Aceta minophen 5-325 MG Oral TabletIndications :MEDICATION USE AGREEMENT,Arthrit is of right knee Take 1 Tablet by mouth every 6 hours as needed for Mild pain 60 Tablet 03/02/2024 Discontinue d(Refill) documented as of this encounter (statuses as of 04/03/2024) Active Problems Problem Noted Date Diagnosed Date [...] - LAMA Self-Management plan o Other: call [facility] Exacerbation plan o Has not required [...] 06/14 abnormal stress test[place]mild nonobstructive CAD> patent stent. Cont med mgmt 08/14 BRIGITTE- mod BPH 08/14 TTE normal EF, Gr I saavedra Dys, EGD-dilated Schatzki ring 06/13 PFT--normal spirometry with low norm obstructive index. No response to dilator. Normal diffusing. Some air trapping, suggestive flow patterns for obstruction. Acute. 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 S/p NSTEMI--CAD, NSTEMI , PCI with a bare metal stent to the OM1 on 02/03/12 at [facility] 2. 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 2012 PFT-low normal 08/14 CT [facility]-upper lobe emphysema, possible basilar fibrosis Lung density on x-ray 06/04/20132013 Overview: 06/13 density -repeat CXR 1mo Overweight (BMI 25.0-29.9) 04/03/2013 0 04/28/2017 Cough 10/24/2012 05/25/2013 Acute bronchitis, antibiotics not indicated 10/11/2012 05/25/2013 Impacted cerumen 10/11/2012 04/28/2017 Dermatitis 10/11/2012 04/28/2017 HTN, goal below 140/80 03/20/201205/02 Overview: Per HTN Protocol #27. Dyslipidemia, goal LDL below 70 02/07/2012 08/11/2022 [employer] [facility] Other*[id number] 02/03/2012 09/07/2016 History of non-ST elevation myocardial [...] as of this encounter (statuses as of 04/03/2024) Immunizations Name Administration Dates Next Due COVID-19 [...] Telephone Encounter - Eddie Ho MD - 04/03/2024 1:45 PM EDTSigned Prescriptions: Disp Refills HYDROcodone-Acetaminophen 5-325 MG Oral Ta*60 Tab*0 Sig: Take 1 Tablet by mouth every 6 hours as needed for Mild pain Authorizing Provider: EDDIE HO * Telephone Encounter - Nina Rehman [facility] - 04/03/2024 10:28 AM EDTPending Prescriptions: Disp Refills HYDROcodone-Acetaminophen 5-325 MG Oral Ta*60 Tab*0 Sig: Take 1 Tablet by mouth every 6 hours as needed for Mild pain * Telephone Encounter - Nina Rehman [facility] - 04/03/2024 10:27 AM EDT I have reviewed the patients controlled substance dispensing history in the Prescription Drug Monitoring Program in compliance with the [facility] regulations before prescribing a controlled substance. PDMP checked on 04/03/2024. Pending Prescriptions: Disp Refills HYDROcodone-Acetaminophen 5-325 MG Oral T*60 Tab*0 Sig: Take 1 Tablet by mouth every 6 hours as needed for Mild pain Last Visit: 01/13/2024 (in office), 04/14/2020 (telemedicine) Next Visit: 04/27/2024 Date medication was last filled: 03/03/24 Date medication is due for refill: 03/27/24 Pharmacy: [facility] Is this request for a controlled substance? Yes and Urine Drug Screen was completed Toxicology results: Results for orders placed or performed in visit on 06/28/23 PAIN MANAGEMENT DRUG PANEL, URINE W/ INTERPRETATION Result Value Compliance Interpretation Based on the medical information provided: The positive hydrocodone/hydromorphone screening result is CONSISTENT with hydrocodone use. If clinically indicated, confirmatory testing is available upon request. The presence of lorazepam is CONSISTENT with lorazepam use. Amphetamines Screen, U Negative Benzodiazepines Screen, U Refer to confirmation results (A) Cannabinoids Screen, U Negative Cocaine Metabolite Screen, U Negative Fentanyl Screen, U Negative Hydrocodone Screen, U Positive (A) Methadone Metabolite Screen, U Negative Morphine/Codeine Screen, U Negative Oxycodone Screen, U Negative Valid Interpretation Normal Creatinine, U 69 Narrative Cutoff Concentrations: Drug Level Amphetamines 500 [...] in Results Review. Please approve if appropriate. Thanks, Nina Rehman, PharmD Clinical Pharmacist [facility] [phone] 04/03/2024 10:28 AM documented in this encounter Plan of Treatment Upcoming Encounters Date Type Department Care Team (Late st Contact Info) Description 04/10/2024 2:00 PM EDT Office Visit Urology, [facility] [address] [place] [address] Valentín Sampson MD [address] [place] [address] 04/27/2024 2:00 PM EDT Office Visit Family Practice [facility] [address] [place] [address] Eddie Ho MD [address] [place] [address] 06/26/2024 3:30 PM EST Office Visit Cardiology, [facility] [address] [place] [address] Malathi Newman PA-C [address] [place] [address] 07/17/2024 3:20 PM EST Office Visit Family Practice [facility] [address] [place] [address] Eddie Ho MD [address] [place] [address] 10/19/2024 2:00 PM EDT Office Visit [facility] [address] [place] [address] Eddie Ho MD [address] [place] [address] Health Maintenance Due Date Last Done Comments [...] this encounter Medical Devices Implanted Type Area Barrel Brander Device Identifier Shelf Expiration Date Model / Serial / Lot Cement Antibiotic Bone - [id number] Implanted:Qty: 2 on 06/21/2018 by Sridhar Grant [place] [facility] Right: Knee DESHAWN : ORTHOPAEDICS 12/29/2018 6197-9-010 / / [id number] Triathlon Asyetric X3 Patell - [id number] Implanted:Qty: 1 on 06/21/2018 by Sridhar Grant [place] [facility] Right: Knee DESHAWN : ORTHOPAEDICS 03/15/2023 5551-G-350 / / 1VE Component Femoral Rt Size 5 T - [id number] Implanted:Qty: 1 on 06/21/2018 by Sridhar Grant [place] [facility] Right: Knee DESHAWN : ORTHOPAEDICS 12/10/2022 5510-F-502 / / [id number] Knee Baseplate Mis Tib Tri 5 - [id number] Implanted:Qty: 1 on 06/21/2018 by Sridhar Grant [place] [facility] [place]: Knee DESHAWN : ORTHOPAEDICS 01/12/2023 5520-M-500 / / [id number] Knee X3 Ins Pos Cs Sz5 9 - [id number] Implanted:Qty: 1 on 06/21/2018 by Sridhar Grant MD [place] [facility] Right: Knee DESHAWN : ORTHOPAEDICS 10/17/2022 5531-G-509 / / [id number] documented as of this encounter Visit Diagnoses [...] patient or by statute hierarchy) Care Teams Industrial Maintenance Repairer Relationship Specialty Start Date End Date Eddie Ho MD [address] [place] [address] PCP - General Family Medicine 07/18/14 documented as of this encounter
--- OUTSIDE RECORDS SUMMARY | 2024-07-27 13:21 | External Medical Summary | Summary of Care ---
Author Name Unknown Organization [facility] Address [address] [place] [address] Phone [phone] Care Team Providers Care Certified Driver Examiner Name Role Phone Eddie Ruffin MD Primary Care Provider + Encounter Details Date Type Department Care Team (Late st Contact Info) Description 04/10/2024 Medication Management [facility] [address] [place] [address] Ebony Rubio, [facility] [address] [place] [address] Allergies Active Allergy Reactions Criticality Noted Date [...] 3 Each 11 10/17/2023 Active Dexcom G7 Radiology Specialist Device Use to read blood glucose [...] Extended Release 24 Hour (Imdur)Indications :Atherosclerosis of [place] coronary artery of [place] heart [...] MCG/ACT Inhalation Aerosol Powder Breath Activated (umeclidinium [place]) inhale ONE puff DAILY. 30 Each 7 [...] - LAMA Self-Management plan o Other: call [facility] Exacerbation plan o Has not [...] prep) 06/14 abnormal stress test--[place] [place] [place]mild nonobstructive CAD> patent stent. Cont med mgmt [...] the OM1 on 02/03/12 at [facility] 2. Patent OM1 stent with mild nonobstructive CAD noted elsewhere via the 06/24/14 catheter[place] [facility] [place] abnormal nuclear stress testing History of [...] below 70 02/07/2012 08/11/2022 [facility] [facility] Other*[id number] 02/03/2012 09/07/2016 History of non-ST elevation myocardial [...] this encounter Progress Notes * Ebony Rubio, [facility] - 04/10/2024 5:17 PM EDT Kaden Flores [...] MCG/ACT Inhalation Aerosol Powder Breath Activated (umeclidinium [place]) Rationale: Patient Education - Needs Medication Assessment [...] therapy, with thefollowing exceptions. Ebony Mickey Rubio, [facility] 04/10/2024, 5:17 PMKaden Badillo is a 73 [...] MCG/ACT Inhalation Aerosol Powder Breath Activated (umeclidinium [place]) inhale ONE puff DAILY. 30 Each 7 [...] AT BEDTIME 50 mL 1 Dexcom G7 Radiology Specialist Device Use to read blood glucose [...] COVID-19 mRNA, LNP-s, No Preserve, 2-Dose Series ([employer]) 10/13/2020, 11/05/2020 H1N1 2009 Influenza, IM 09/18/2009 [...] COPD, group C, by GOLD 2017 classification ([facility]) Current Medication: Albuterol Sulfate HFA 108 (90 Base) MCG/ACT Inhalation Aerosol Solution Rationale: Untreated condition - Needs additional medication therapy - Indication Recommendation: Continue to Monitor Status: Accepted - no CPA Needed Current Medication: Incruse Ellipta 62.5 MCG/ACT Inhalation Aerosol Powder Breath Activated (umeclidinium [place]) Rationale: Patient Education - Needs Medication Assessment - Adherence Recommendation: Provide Education Status: Accepted - no CPA Needed Type 2 diabetes mellitus with hemoglobin A1c goal of less than 8.0% ([facility]) Current Medication: glipiZIDE 10 MG Oral Tablet [...] beneficiary Language Template for the Patient Takeaway: Martiniquais I attest that I have reviewed and [...] tabs, etc do not provide relief * [facility] Personal Medication List - Ebony Rubio [...] [facility] Eddie Ruffin MD Dexcom G7 Radiology Specialist Device Use to read blood glucose values with dexcom G7 sensor E 11.9 Diabetes Eddie Ruffin MD Dexcom G7 Sensor Use 1 sensor every 10 days E 11.9 Diabetes Eddei Ruffin MD Diclofenac Sodium 1 % External [...] MCG/ACT Inhalation Aerosol Powder Breath Activated (umeclidinium [place]) inhale ONE puff DAILY. COPD Eddie Ruffin [...] 2:00 PM EDT Office Visit Family Practice [facility] [address] [place] [address] Eddie Ruffin MD [address] [place] [address] 06/26/2024 3:30 PM EST Office Visit Cardiology, [facility] [address] [place] [address] Malathi Newman PA-C [address] [place] [address] 07/17/2024 3:20 PM EST Office Visit [place] [address] [facility] [place] [address] Eddie Ruffin MD [address] [place] [address] 08/27/2024 2:45 PM EST Office Visit Urology, [facility] [address] [facility] [place] [address] Valentín Sampson MD [address] [place] [address] 10/19/2024 2:00 PM EDT Office Visit [place] [address] [facility] [place] [address] Eddie Ruffin MD [address] [facility] [place] [address] Health Maintenance Due Date Last Done Comments [...] this encounter Medical Devices Implanted Type Area Vice President Regulatory Device Identifier Shelf Expiration Date Model / Serial / Lot Cement Antibiotic Bone - [id number] Implanted:Qty: 2 on 06/21/2018 by Sridhar Grant MD [place] [facility] [place] Right: Knee DESHAWN : ORTHOPAEDICS 12/29/2018 6197-9-010 / / [id number] [place] Asyetric X3 Patell - [id number] Implanted:Qty: 1 on 06/21/2018 by Sridhar Grant MD [place] [facility] [place] Right: Knee DESHAWN : ORTHOPAEDICS 03/15/2023 5551-G-350 / / 1VE Component Femoral Rt Size 5 T - [id number] Implanted:Qty: 1 on 06/21/2018 by Sridhar Grant MD [place] [facility] [place] Right: Knee DESHAWN : ORTHOPAEDICS 12/10/2022 5510-F-502 / / [id number] Knee Baseplate Mis Tib Tri 5 - [id number] Implanted:Qty: 1 on 06/21/2018 by Sridhar Grant MD [place] [facility] [place] Right: Knee DESHAWN : ORTHOPAEDICS 01/12/2023 5520-M-500 / / [id number] Knee X3 Ins Pos Cs Sz5 9 - [id number] Implanted:Qty: 1 on 06/21/2018 by Sridhar Grant MD [place] [facility] [place] Right: Knee DESHAWN : ORTHOPAEDICS 10/17/2022 5531-G-509 / / [id number] documented as of this encounter Advance Directives [...] patient or by statute hierarchy) Care Teams Certified Driver Examiner Relationship Specialty Start Date End Date Eddie Ruffin MD [address] [place] [address] PCP - General Family Medicine 07/18/14 documented as of this encounter
--- OUTSIDE RECORDS SUMMARY | 2024-07-27 13:21 | External Medical Summary ---
Author Name Unknown Address Unknown Organization [id number]:[facility]ORY [facility] [place] - [facility] [address] [facility] [address] Laboratory Report Ordering Provider Test Date Status VIC MEANS 04/10/2024 14:37:03 Final Observation Date Value Abnormality Reference (Units) Status PARAPROTEIN NORMAL/ABNORMAL 04/10/2024 14:37:03 Normal Normal Final Protein 04/10/2024 14:37:03 6.9 6.0-8.3 (g/dL) Final Albumin/Protein.total [Pure mass fraction] in Serum or Plasma by Electrophoresis 04/10/2024 14:37:03 3.58 3.30-4.40 (g/dL) Final Alpha 1 globulin/Protein.tota l [Pure mass fraction] in Serum or Plasma by Electrophoresis 04/10/2024 14:37:03 0.20 0.10-0.30 (g/dL) Final Alpha 2 globulin/Protein.tota l [Pure mass fraction] in Serum or Plasma by Electrophoresis 04/10/2024 14:37:03 1.04 Above high normal 0.60-1.00 (g/dL) Final Beta globulin/Protein.tota l [Pure mass fraction] in Serum or Plasma by Electrophoresis 04/10/2024 14:37:03 1.19 0.80-1.30 (g/dL) Final Gamma globulin/Protein.tota l [Pure mass fraction] in Serum or Plasma by Electrophoresis 04/10/2024 14:37:03 0.89 0.70-1.70 (g/dL) Final Protein Fractions [Interpretation] in Serum or Plasma by Electrophoresis Narrative 04/10/2024 14:37:03 No paraprotein detected. Final Performing Location [facility]ORY [facility] - [address] [facility] [address]
--- OUTSIDE RECORDS SUMMARY | 2024-07-27 13:21 | External Medical Summary ---
Author Name Unknown Address Unknown Organization [id number][place] [place] [address] [facility] [address] Laboratory Report Ordering Provider Test Date Status VIC MEANS 04/10/2024 14:37:03 Final Observation Date Value Abnormality Reference (Units ) Status Triglyceride 04/10/2024 14:37:03 340 Above high normal <=174 (mg/dL) Final Triglyceride Reference Range s (mg/dL):
<150 Acceptable
150-174 Borderline high
175-499 High
>=500 Very high Cholesterol 04/10/2024 14:37:03 140 <200 (mg /dL) Final Total Cholesterol Reference Ranges (mg/dL):
<200 Desirable
200-239 Borderline high
>=240 High HDL 04/10/2024 14:37:03 30 Below low normal >39 (mg/dL) Final HDL Cholesterol Reference Ra nges (mg/dL):
>=60 High (Desirable)
<50 Low (Undesirable) For Females
<40 Low (Undesirable) For Males NON-HDL CHOLESTEROL 04/10/2024 14:37:03 110 <=159 (mg/dL) Final Non-HDL Cholesterol Referenc e Range (mg/dL):
<100 Target level for high risk ASCVD patient
<130 Optimal for general population
130-159 Near optimal for general population
160-189 Borderline High
190-219 High
>=220 Very High Performing Location [facility] [place] [address] [facility] [address]
--- OUTSIDE RECORDS SUMMARY | 2024-07-27 13:22 | External Medical Summary | Summary of Care ---
Author Name Unknown Organization [facility] Address [address] [place] [address] Phone [phone] Care Team Providers Care Bilingual Inside Sales Representative Name Role Phone Eddie Ho MD Primary Care Provider + Reason for Visit * Reason Comments Medication Refill Encounter Details Date Type Department Care Team (Late st Contact Info) Description 01/30/2024 Refill Family Practice [facility] [address] [place] [address] Eddie Ho MD [address] [place] [address] MEDICATION USE AGREEMENT; Arthritis of right knee Allergies Active Allergy Reactions Criticality Noted Date Comments Formoterol High 02/16/2022 Other reaction(s): RASH Lisinopril Cough Low 10/24/2012 Penicillins Other (Please comment) 08/15/2013 Family hx allergic reaction Simvastatin High 02/16/2022 Other reaction(s): RASH documented as of this encounter (statuses as of 02/01/2024) Medications Medication Sig Dispensed Refills Start Date [...] Oral PowderIndications :constipation Take by mouth. Active Diclofenac Sodium 1 % External Gel (Voltaren) Apply 4 g topically to affected area 4 times a day as needed (Pain). 100 g 11 01/06/2023 Active Magnesium Oxide -Mg Supplement 400 (240 Mg) MG Oral Tablet (Mag-Ox) Take 1 Tablet by mouth in the morning and 1 Tablet before bedtime. 180 Tablet 3 01/20/2023 Active Clobetasol Propionate 0.05 % External SolutionIndicatio ns:Seborrhea capitis Apply topically to affected area 2 times a day. To affected area for up to two weeks. 50 mL 1 03/02/2023 Active metFORMIN HCl 1000 MG Oral Tablet [...] 3 Each 11 10/17/2023 Active Dexcom G7 Crts Device Use to read blood glucose values with dexcom G7 sensor E 11.9 1 Each 10/17/2023 Active Insulin Glargine 100 UNIT/ML Subcutaneous Solution (Lantus)Indicatio ns:Type 2 diabetes mellitus with hemoglobin A1c goal of less than 8.0% ([facility]) INJECT 55 UNITS UNDER THE SKIN AT BEDTIME 50 mL 1 10/24/2023 Active Mirabegron ER 50 MG Oral Tablet Extended Release 24 Hour (Myrbetriq) Take 1 Tablet by mouth in the morning. 30 Tablet 6 11/15/2023 Active Isosorbide Mononitrate ER 30 MG Oral [...] until 12/21/23. 100 Tablet 3 12/07/2023 Active Tamsulosin HCl 0.4 MG Oral Capsule (Flomax) Take 1 Capsule by mouth in the morning. 30 Capsule 1 12/09/2023 Active LORazepam 1 MG Oral Tablet (Ativan)Indicatio ns:Anxiety TAKE 1 TABLET BY MOUTH UP TO TWICE DAILY FOR ANXIETY/INSOMNIA. 60 Tablet 5 12/14/2023 Active glipiZIDE 10 MG Oral Tablet (Glucotrol)Indica tions:Type 2 diabetes mellitus with hemoglobin A1c goal of less than 8.0% ([facility]) Take 1 Tablet by mouth in the morning 30 minutes before a meal. 30 Tablet 5 12/30/2023 Active Pantoprazole Sodium 40 MG Oral Tablet Delayed Release (Protonix)Indicat ions:Esophageal obstruction TAKE 1 TABLET BY MOUTH DAILY. 90 Tablet 3 01/03/2024 Active Incruse Ellipta 62.5 MCG/ACT Inhalation Aerosol Powder Breath Activated (umeclidinium [place]) inhale ONE puff DAILY. 30 Each 7 01/13/2024 5 Active Losartan Potassium 25 MG Oral Tablet (Cozaar)Indicatio ns:Hypertensive heart disease with chronic diastolic congestive heart failure (HCC),HTN, goal below 140/90 Take 1 Tablet by mouth in the morning. 90 Tablet 3 01/25/2024 Active HYDROcodone-Aceta minophen 5-325 MG Oral TabletIndications :MEDICATION USE AGREEMENT,Arthrit is of right knee Take 1 Tablet by mouth every 6 hours as needed for Mild pain 60 Tablet 02/01/2024 Active HYDROcodone-Aceta minophen 5-325 MG Oral TabletIndications :MEDICATION USE AGREEMENT,Arthrit is of right knee Take 1 Tablet by mouth every 6 hours as needed for Mild pain 60 Tablet 01/03/2024 4 Discontinue d(Refill) documented as of this encounter (statuses as of 02/01/2024) Active Problems Problem Noted Date Diagnosed Date [...] - LAMA Self-Management plan o Other: call [facility] Exacerbation plan o Has not required [...] prep) 06/14 abnormal stress test--referred for CATH @[facility]--mild nonobstructive CAD> patent stent. [...] stent to the OM1 on 02/03/12 at [facility] 2. Patent OM1 stent with mild nonobstructive CAD noted elsewhere via the 06/24/14 catheterization at [facility] following abnormal nuclear stress [...] as of this encounter (statuses as of 02/01/2024) Resolved Problems Problem Noted Date Diagnosed Date [...] disease witho ut cerebral infarction 09/22/2018 08/11/2022 halfway (current) use of insulin 08/08/2018 08/11/2022 Old DE (myocardial infarction) 07/03/2018 08/08/2018 Cataract, diabetic 07/03/2018 [...] disease. 2012 PFT-low normal 08/[address] [facility]-upper lobe emphysema, possible basilar fibrosis Lung density on x-ray 06/04/20132013 Overview: 06/13 density -repeat CXR 1mo Overweight (BMI 25.0-29.9) 04/03/2013 0 04/28/2017 Cough 10/24/2012 05/25/2013 Acute bronchitis, antibiotics not indicated 10/11/2012 05/25/2013 Impacted cerumen 10/11/2012 04/28/2017 Dermatitis 10/11/2012 04/28/2017 HTN, goal below 140/80 03/20/201205/02 Overview: Per HTN Protocol #27. Dyslipidemia, goal LDL below 70 02/07/2012 08/11/2022 [employer] Other*[id number] 02/03/2012 09/07/2016 History of non-ST elevation myocardial [...] as of this encounter (statuses as of 02/01/2024) Immunizations Name Administration Dates Next Due COVID-19 [...] Telephone Encounter - Eddie Ho MD - 02/01/2024 8:25 AM EDTSigned Prescriptions: Disp Refills HYDROcodone-Acetaminophen 5-325 MG Oral Ta*60 Tab*0 Sig: Take 1 Tablet by mouth every 6 hours as needed for Mild pain Authorizing Provider: EDDIE HO * Telephone Encounter - Oliva Dos Santos [facility] - 01/31/2024 4:23 PM EDTPending Prescriptions: Disp Refills HYDROcodone-Acetaminophen 5-325 MG Oral Ta*60 Tab*0 Sig: Take 1 Tablet by mouth every 6 hours as needed for Mild pain * Telephone Encounter - Oliva Dos Santos [facility] - 01/31/2024 4:22 PM EDT I have reviewed the patients controlled substance dispensing history in the Prescription Drug Monitoring Program in compliance with the [place] regulations before prescribing a controlled substance. PDMP checked on 01/31/2024. Pending Prescriptions: Disp Refills HYDROcodone-Acetaminophen 5-325 MG Oral T*60 Tab*0 Sig: Take 1 Tablet by mouth every 6 hours as needed for Mild pain Last Visit: 01/13/2024 (in office), 04/14/2020 (telemedicine) Next Visit: 04/27/2024 Date medication was last filled: 01/04 Date medication is due for refill: 01/18 Pharmacy: [facility] Is this request for a [...] in Results Review. Please approve if appropriate. Thank you, Oliva Dos Santos, PharmD Clinical Pharmacist [facility] ([facility]) [phone] 01/31/2024, 4:23 PM documented in this encounter Plan of Treatment Upcoming Encounters Date Type Department Care Team (Late st Contact Info) Description 03/09/2024 3:30 PM EDT Office Visit Cardiology, [facility] [address] [place] [address] Kana Somers PA-C [address] [place] [address] 03/14/2024 2:20 PM EDT Office Visit Sleep Disorders Ctr [facility] [address] [place] [phone] Eloisa Lozano DO [address] [place] [address] 04/10/2024 2:00 PM EDT Office Visit Urology, [facility] [address] [place] [address] Valentín Sampson MD [address] [place] [address] 04/27/2024 2:00 PM EDT Office Visit Family Practice [facility] [address] [place] [address] Eddie Ho MD [address] [place] [address] 07/17/2024 3:20 PM EST [facility] [place] [address] Eddie Ho MD [address] [place] [address] 10/19/2024 2:00 PM EDT Office Visit [facility] [address] [facility] [place] [address] Eddie Ho MD [address] [place] [address] Health Maintenance Due Date Last Done Comments Zoster Vaccines (3 of 3) 04/17/2021 02/20/2021, 04/02 Diabetic Foot Exam 02/20/2022 02/20/2021, 1 , 09/22/2018, Additional history exists Depression Monitoring 08/04/2022 08/04/2021 Colonoscopy 03/22/2023 03/22/2018, 03/02, 02/24/2016, Additional history exists COVID-19 Vaccine (3 - 2022-24 season) 2023 11/05/2020, 10/13/2020 Diabetic Eye Exam [...] this encounter Medical Devices Implanted Type Area Enrobing Machine Corder Device Identifier Shelf Expiration Date Model / Serial / Lot Cement Antibiotic Bone - [id number] Implanted:Qty: 2 on 06/21/2018 by Sridhar Grant MD at OR [facility] [facility] Right: Knee DESHAWN : ORTHOPAEDICS 12/29/2018 6197-9-010 / / [id number] Triathlon Asyetric X3 Patell - [id number] Implanted:Qty: 1 on 06/21/2018 by Sridhar Grant MD at OR [facility] Right: Knee DESHAWN : ORTHOPAEDICS 03/15/2023 5551-G-350 / / [id number] Component Femoral Rt Size 5 T - [id number] Implanted:Qty: 1 on 06/21/2018 by Sridhar Grant MD at OR [facility] Right: Knee DESHAWN : ORTHOPAEDICS 12/10/2022 5510-F-502 / / [id number] Knee Baseplate Mis Tib Tri 5 - [id number] Implanted:Qty: 1 on 06/21/2018 by Sridhar Grant MD at OR [facility] Right: Knee DESHAWN : ORTHOPAEDICS 01/12/2023 5520-M-500 / / [id number] Knee X3 Ins Pos Cs Sz5 9 - [id number] Implanted:Qty: 1 on 06/21/2018 by Sridhar Grant MD at OR [facility] Right: Knee DESHAWN : ORTHOPAEDICS 10/17/2022 5531-G-509 / / [id number] documented as of this encounter Visit Diagnoses [...] patient or by statute hierarchy) Care Teams Bilingual Inside Sales Representative Relationship Specialty Start Date End Date Eddie Ho MD [address] [place] [address] PCP - General Family Medicine 07/18/14 documented as of this encounter
--- OUTSIDE RECORDS SUMMARY | 2024-07-27 13:22 | External Medical Summary | Summary of Care ---
Author Name Unknown Organization [facility] Address [address] [place] [address] Phone [phone] Care Team Providers Care Paper Sales Manager Name Role Phone Eddie Ruffin MD Primary Care Provider + Reason for Visit * Reason Comments Medication Refill Encounter Details Date Type Department Care Team (Late st Contact Info) Description 03/02/[address] [facility] [address] [place] [address] Eddie Ruffin MD [address] [place] [address] MEDICATION USE AGREEMENT; Arthritis of right knee Allergies Active Allergy Reactions Criticality Noted Date Comments Formoterol High 02/16/2022 Other reaction(s): RASH Lisinopril Cough Low 10/24/2012 Penicillins Other (Please comment) 08/15/2013 Family hx allergic reaction Simvastatin High 02/16/2022 Other reaction(s): RASH documented as of this encounter (statuses as of 03/02/2024) Medications Medication Sig Dispensed Refills Start Date [...] 3 Each 11 10/17/2023 Active Dexcom G7 Instructional Writer Device Use to read blood glucose values [...] Extended Release 24 Hour (Imdur)Indication s:Atherosclerosis of wiyot coronary artery of wiyot heart without angina pectoris TAKE 1 TABLET [...] MCG/ACT Inhalation Aerosol Powder Breath Activated (umeclidinium [place]) inhale ONE puff DAILY. 30 Each 7 [...] for Mild pain 60 Tablet 03/02/2024 Active HYDROcodone-Aceta minophen 5-325 MG Oral TabletIndications :MEDICATION USE AGREEMENT,Arthrit is of right knee Take 1 Tablet by mouth every 6 hours as needed for Mild pain 60 Tablet 02/01/2024 4 Discontinue d(Refill) documented as of this encounter (statuses as of 03/02/2024) Active Problems Problem Noted Date Diagnosed Date [...] - LAMA Self-Management plan o Other: call [facility] Exacerbation plan o Has not required [...] abnormal stress test--referred for CATH @[facility]--mild nonobstructive CAD> patent stent. Cont med mgmt 08/14 BRIGITTE- mod BPH 08/14 TTE normal EF, Gr I saavedra Dys, EGD-dilated Schatzki ring 06/13 PFT--normal spirometry with low norm obstructive index. No response to dilator. Normal diffusing. Some air trapping, suggestive flow patterns for obstruction. Acute. HTN, goal below 130/80 05/02/2012 Coronary atherosclerosis of wiyot coronary kelby ry 03/06/2012 Overview: 1. S/p NSTEMI--CAD, NSTEMI , PCI with a bare metal stent to the OM1 on 02/03/12 at [facility] 2. 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 2012 PFT-low normal 08/14 [facility]-upper lobe emphysema, possible basilar fibrosis Lung density on x-ray 06/04/20132013 Overview: 06/13 density -repeat CXR 1mo Overweight (BMI 25.0-29.9) 04/03/2013 0 04/28/2017 Cough 10/24/2012 05/25/2013 Acute bronchitis, antibiotics not indicated 10/11/2012 05/25/2013 Impacted cerumen 10/11/2012 04/28/2017 Dermatitis 10/11/2012 04/28/2017 HTN, goal below 140/80 03/20/201205/02 Overview: Per HTN Protocol #27. Dyslipidemia, goal LDL below 70 02/07/2012 08/11/2022 [employer] Other*[id number] 02/03/2012 09/07/2016 History of non-ST elevation myocardial [...] as of this encounter (statuses as of 03/02/2024) Immunizations Name Administration Dates Next Due COVID-19 [...] encounter Miscellaneous Notes * Telephone Encounter - Casper Kennedy MD - 03/02/2024 4:44 PM EDT Signed Prescriptions: Disp Refills HYDROcodone-Acetaminophen 5-325 MG Oral Ta*60 Tab*0 Sig: Take 1 Tablet by mouth every 6 hours as needed for Mild pain Authorizing Provider: CASPER KENNEDY * Telephone Encounter - Casper Kennedy MD - 03/02/2024 4:41 PM EDT I have reviewed the patient's controlled substance dispensing history in the Prescription Drug Monitoring Program in compliance with the [facility] regulations before prescribing a controlled substance. documented in this encounter Plan of Treatment Upcoming Encounters Date Type Department Care Team (Late st Contact Info) Description 03/09/2024 3:30 PM EDT Office Visit Cardiology, [facility] [address] [place] [address] Kana Somers PA-C [address] [place] [address] 03/14/2024 2:20 PM EDT Office Visit Sleep Disorders Ctr [facility] [address] [place] [phone] Eloisa Lozano DO [address] [place] [address] 04/10/2024 2:00 PM EDT Office Visit Urology, [facility] [address] [place] [address] Valentín Sampson MD [address] [place] [address] 04/27/2024 2:00 PM EDT [facility] [place] [place] [address] Eddie Ruffin MD [address] [place] [address] 07/17/2024 3:20 PM EST Office [facility] [place] [address] Eddie Ruffin MD [address] [place] [address] 10/19/2024 2:00 PM EDT Office Visit [facility] [address] [facility] [place] [address] Eddie Ruffin MD [address] [place] [address] Health Maintenance Due Date Last Done Comments Zoster Vaccines (3 of 3) 04/17/2021 02/20/2021, 04/02 Diabetic Foot Exam 02/20/2022 02/20/2021, 1 , 09/22/2018, Additional history exists Depression Monitoring 08/04/2022 08/04/2021 Colonoscopy 03/22/2023 03/22/2018, 03/02, 02/24/2016, Additional history exists COVID-19 Vaccine ( season) 2023 11/05/2020, 10/13/2020 Diabetic Eye Exam [...] this encounter Medical Devices Implanted Type Area Check Services Clerk Device Identifier Shelf Expiration Date Model / Serial / Lot Cement Antibiotic Bone - [id number] Implanted:Qty: 2 on 06/21/2018 by Sridhar Grant MD at OR [facility] Right: Knee DESHAWN : ORTHOPAEDICS 12/29/2018 6197-9-010 / / [id number] Triathlon Asyetric X3 Patell - [id number] Implanted:Qty: 1 on 06/21/2018 by Sridhar Grant MD at OR [facility] Right: Knee DESHAWN : ORTHOPAEDICS 03/15/2023 5551-G-350 / / 1VE Component Femoral Rt Size 5 T - [id number] Implanted:Qty: 1 on 06/21/2018 by Sridhar Grant MD at OR [facility] Right: Knee DESHAWN : ORTHOPAEDICS 12/10/2022 5510-F-502 / / [id number] Knee Baseplate Mis Tib Tri 5 - [id number] Implanted:Qty: 1 on 06/21/2018 by Sridhar Grant MD at OR [facility] Right: Knee DESHAWN : ORTHOPAEDICS 01/12/2023 5520-M-500 / / [id number] Knee X3 Ins Pos Cs Sz5 9 - [id number] Implanted:Qty: 1 on 06/21/2018 by Sridhar Grant MD at OR [facility] Right: Knee DESHAWN : ORTHOPAEDICS 10/17/2022 5531-G-509 / / [id number] documented as of this encounter Visit Diagnoses [...] patient or by statute hierarchy) Care Teams Paper Sales Manager Relationship Specialty Start Date End Date Eddie Ruffin MD [address] [place] [address] PCP - General Family Medicine 07/18/14 documented as of this encounter
--- OUTSIDE RECORDS SUMMARY | 2024-07-27 13:22 | External Medical Summary | Summary of Care ---
Author Name Unknown Organization [facility] Address [address] [place] [address] Phone [phone] Care Team Providers Care Garde Manager Name Role Phone Eddie Ruffin MD Primary Care Provider + Encounter Details Date Type Department Care Team (Late st Contact Info) Description 01/29/2024 Result Scan Unspecified Department Lazaro Banks, DO [address] [place] [address] <No scans attached> Allergies Active Allergy Reactions Criticality Noted Date Comments Formoterol High 02/16/2022 Other reaction(s): RASH Lisinopril Cough Low 10/24/2012 Penicillins Other (Please comment) 08/15/2013 Family hx allergic reaction Simvastatin High 02/16/2022 Other reaction(s): RASH documented as of this encounter (statuses as of 01/29/2024) Medications Medication Sig Dispensed Refills Start Date [...] Oral PowderIndications: constipation Take by mouth. Active Diclofenac Sodium 1 [...] 01/20/2023 Active Clobetasol Propionate 0.05 % External SolutionIndication [...] 3 Each 11 10/17/2023 Active Dexcom G7 Commission Sales Associate Device Use to read blood glucose values [...] 24 Hour (Imdur)Indications :Atherosclerosis of [place] coronary artery of [place] heart without angina pectoris TAKE 1 TABLET [...] 12/09/2023 Active LORazepam 1 MG Oral Tablet (Ativan)Indication s:Anxiety TAKE 1 TABLET BY MOUTH UP TO TWICE DAILY FOR ANXIETY/INSOMNIA. 60 Tablet 5 12/14/2023 Active glipiZIDE 10 MG Oral Tablet (Glucotrol)Indicat ions:Type 2 diabetes mellitus with hemoglobin A1c goal of less than 8.0% (HCC) Take 1 Tablet by mouth in the morning 30 minutes before a meal. 30 Tablet 5 12/30/2023 Active HYDROcodone-Acetam inophen 5-325 MG Oral TabletIndications: MEDICATION USE AGREEMENT,Arthriti s of right knee Take 1 Tablet by mouth every 6 hours as needed for Mild pain 60 Tablet 01/03/2024 Active Pantoprazole Sodium 40 MG Oral Tablet Delayed Release (Protonix)Indicati ons:Esophageal obstruction TAKE 1 TABLET BY MOUTH DAILY. 90 Tablet 3 01/03/2024 Active Incruse Ellipta 62.5 MCG/ACT Inhalation Aerosol Powder Breath Activated (umeclidinium [place]) inhale ONE puff DAILY. 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 90 Tablet 3 01/25/2024 Active documented as of this encounter (statuses as of 01/29/2024) Active Problems Problem Noted Date Diagnosed Date [...] - LAMA Self-Management plan o Other: call [facility] Exacerbation plan o Has not [...] 06/14 abnormal stress test--referred for CATH @[facility]--mild nonobstructive CAD> patent stent. Cont med mgmt 08/14 BRIGITTE- mod BPH 08/14 TTE normal EF, Gr I saavedra Dys, EGD-dilated Schatzki ring 06/13 PFT--normal spirometry with low norm obstructive index. No response to dilator. Normal diffusing. Some air trapping, suggestive flow patterns for obstruction. Acute. HTN, goal below 130/80 05/02/2012 Coronary atherosclerosis of [place] coronary kelby ry 03/06/2012 Overview: 1. S/p NSTEMI--CAD, NSTEMI , PCI with a bare metal stent to the OM1 on 02/03/12 at [facility] 2. 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 2012 PFT-low normal 08/14 CT [facility]-upper lobe emphysema, possible basilar fibrosis Lung density on x-ray 06/04/20132013 Overview: 06/13 density -repeat CXR 1mo Overweight (BMI 25.0-29.9) 04/03/2013 0 04/28/2017 Cough 10/24/2012 05/25/2013 Acute bronchitis, antibiotics not indicated 10/11/2012 05/25/2013 Impacted cerumen 10/11/2012 04/28/2017 Dermatitis 10/11/2012 04/28/2017 HTN, goal below 140/80 03/20/201205/02 Overview: Per HTN Protocol #27. Dyslipidemia, goal LDL below 70 02/07/2012 08/11/2022 [facility] Other*[id number] 02/03/2012 09/07/2016 History of non-ST elevation myocardial [...] as of this encounter (statuses as of 01/29/2024) Immunizations Name Administration Dates Next Due COVID-19 [...] 03/09/2024 3:30 PM EDT [facility] [address] [place] [address] Kana Somers PA-C [address] [place] [address] 03/14/2024 2:20 PM EDT Office Visit [facility] Disorders Ctr [facility] [address] [facility] [place] [address] Eloisa Lozano DO [address] [place] [address] 04/10/2024 2:00 PM EDT Office Visit Urology, [facility] [address] [place] [address] Valentín Sampson MD [address] [place] [address] 04/27/2024 2:00 PM EDT Office Visit Family Practice [facility] [address] [place] [address] Eddie Ruffin MD [address] [place] [address] 07/17/2024 3:20 PM EST Office Visit Family [facility] [address] [place] [address] Eddie Ruffin MD [address] [place] [address] 10/19/2024 2:00 PM EDT Office Visit [facility] [address] [facility] [address] Eddie Ruffin MD [address] [place] [address] Health Maintenance Due Date Last Done Comments Zoster Vaccines (3 of 3) 04/17/2021 02/20/2021, 04/02 Diabetic Foot Exam 02/20/2022 02/20/2021, 1 , 09/22/2018, Additional history exists Depression Monitoring 08/04/2022 08/04/2021 Colonoscopy 03/22/2023 03/22/2018, 03/02, 02/24/2016, Additional history exists COVID-19 Vaccine ( season) 2023 11/05/2020, 10/13/2020 Diabetic Eye Exam 01/29/2024 01/28/2023, , 06/22/2021, Additional history exists HbA1c 05/30/2024 11/29/2023, 06/02, [...] Additional history exists Alpha-1 Antitrypsin Completed 04/16/2022 Influenza Vaccine (FLU shot) Completed 07/01/2023, 04/16/2022, 04/29/2021, Additional history exists GARDASIL-HPV IMMUNIZATION SERIES Aged Out No longer eligible based on patient's age to complete this topic Hepatitis B Aged Out No longer eligi ble based on patient's age to complete this topic MENINGOCOCCAL (MENACTRA/MENVEO) Aged Out No longer eligible based on patient's age to complete this topic documented as of this encounter Medical Devices Implanted Type Area Developmental Writing Instructor Device Identifier Shelf Expiration Date Model / Serial / Lot Cement Antibiotic Bone - [id number] Implanted:Qty: 2 on 06/21/2018 by Sridhar Grant MD at [facility] Right: Knee DESHAWN : ORTHOPAEDICS 12/29/2018 6197-9-010 / / [id number] Triathlon Asyetric X3 Patell - [id number] Implanted:Qty: 1 on 06/21/2018 by Sridhar Grant MD at OR [facility] Right: Knee DESHAWN : ORTHOPAEDICS 03/15/2023 5551-G-350 / / 1VE Component Femoral Rt Size 5 T - [id number] Implanted:Qty: 1 on 06/21/2018 by Sridhar Grant MD at OR [facility] Right: Knee DESHAWN : ORTHOPAEDICS 12/10/2022 5510-F-502 / / [id number] Knee Baseplate Mis Tib Tri 5 - [id number] Implanted:Qty: 1 on 06/21/2018 by Sridhar Grant MD at OR [facility] Right: Knee DESHAWN : ORTHOPAEDICS 01/12/2023 5520-M-500 / / [id number] Knee X3 Ins Pos Cs Sz5 9 - [id number] Implanted:Qty: 1 on 06/21/2018 by Sridhar Grant MD at OR [facility] Right: Knee DESHAWN : ORTHOPAEDICS 10/17/2022 5531-G-509 / / [id number] documented as of this encounter Procedures Procedure Name Priority Date/Time Associated Diagnosis Comments CARDIOLOGY SCANNED RESULT 01/29/2024 documented in this encounter Results * CARDIOLOGY SCANNED RESULT (01/29/2024) 01/29/2024 Lazaro Banks DO OTHER documented in this [...] patient or by statute hierarchy) Care Teams Garde Manager Relationship Specialty Start Date End Date Eddie Ruffin MD [address] [place] [address] PCP - General Family Medicine 07/18/14 documented as of this encounter
--- OUTSIDE RECORDS SUMMARY | 2024-07-27 13:22 | External Medical Summary | Summary of Care ---
Author Name Unknown Organization [facility] Address [address] [place] [address] Phone [phone] Care Team Providers Care Radiator Tester Name Role Phone Eddie Ho MD Primary Care Provider + Reason for Visit * Reason Comments Medication Refill Encounter Details Date Type Department Care Team (Late st Contact Info) Description 01/31/2024 Refill Cardiology, [facility] [address] [place] [address] Kana Somers, PAMalihaC [address] [place] [address] Seborrhea capitis Allergies Active Allergy Reactions Criticality Noted Date [...] 3 Each 11 10/17/2023 Active Dexcom G7 Campus Manager Device Use to read blood glucose [...] Extended Release 24 Hour (Imdur)Indication s:Atherosclerosis of [place] coronary artery of [place] heart without angina pectoris TAKE 1 TABLET [...] MCG/ACT Inhalation Aerosol Powder Breath Activated (umeclidinium [place]) inhale ONE puff DAILY. 30 Each 7 [...] for Mild pain 60 Tablet 02/01/2024 Active Clobetasol Propionate 0.05 % External SolutionIndicatio ns:Seborrhea capitis Apply topically to affected area 2 times a day. To affected area for up to two weeks. 50 mL 1 02/01/2024 Active Clobetasol Propionate 0.05 % External SolutionIndicatio ns:Seborrhea capitis Apply topically to affected area 2 times a day. To affected area for up to two weeks. 50 mL 1 03/02/2023 Discontinue d(Refill) documented as of this encounter [...] prep) 06/14 abnormal stress test--referred for CATH @[facility]--mild nonobstructive CAD> patent stent. Cont med mgmt 08/14 BRIGITTE- mod BPH 08/14 TTE normal EF, Gr I saavedra Dys, EGD-dilated Schatzki ring 06/13 PFT--normal spirometry with low norm obstructive index. No response to dilator. Normal diffusing. Some air trapping, suggestive flow patterns for obstruction. Acute. HTN, goal below 130/80 05/02/2012 Coronary atherosclerosis of [place] coronary kelby ry 03/06/2012 Overview: 1. S/p NSTEMI--CAD, NSTEMI , PCI with a bare metal stent to the OM1 on 02/03/[address] [facility] 2. Patent OM1 stent with mild nonobstructive CAD noted elsewhere via the 06/24/14 catheterization at [facility] following abnormal nuclear stress testing History of [...] disease witho ut cerebral infarction 09/22/2018 08/11/2022 group home (current) use of insulin 08/08/2018 08/11/2022 [...] below 70 02/07/2012 08/11/2022 [facility] Other*[id number] 02/03/2012 09/07/2016 History of non-ST elevation myocardial [...] Encounter - Eddie Ho MD - 02/01/2024 4:42 PM EDTSigned Prescriptions: Disp Refills Clobetasol Propionate 0.05 % External Solu*50 mL 1 Sig: Apply topically to affected area 2 times a day. To affected area for up to two weeks. Authorizing Provider: EDDIE HO * Telephone Encounter - Bryn Bradshaw Genelux - 02/01/2024 2:44 PM EDT Pending Prescriptions: Disp Refills Clobetasol Propionate 0.05 % External Solu*50 mL 1 Sig: Apply topically to affected area 2 times a day. To affected area for up to two weeks. * Telephone Encounter - Bryn Bradshaw MED Sian's Plan - 02/01/2024 2:43 PM EDT Did you pend patient's preferred pharmacy and medication before forwarding?yes Pharmacy: [facility] Pending Prescriptions: Disp Refills Clobetasol Propionate 0.05 % External Kasey*50 mL 1 Sig: Apply topically to affected area 2 times a day. To affected area for up to two weeks. Last Visit: 11/29/2023 (in office), Visit date not found (telemedicine) Next Visit: 03/09/2024 If no future appointments scheduled, and last appointment is greater than a year ago, please schedule patient for a follow-up appointment Last date the medication was ordered: 03.02.2023 Is this request for a controlled substance?No Urine Drug Screen: Results for orders placed or performed in [...] results can be found in Results Review. Patient Phone Numbers Labs: Lab Results Component Value Date/Time CREAT 1.4 (H) 11/29/2023 02:49 PM CREAT 1.0 07/31/2020 09:09 AM POTASSIUM 4.9 11/29/2023 02:49 PM POTASSIUM 4.5 07/31/2020 09:09 AM TSH 3.76 11/29/2023 02:49 PM TSH 3.68 02/20/2020 09:31 AM LDLCALC 51 09/12/2017 08:27 AM LDLDIRECT 140 (H) 11/29/2023 02:49 PM LDLDIRECT 45 07/21/2020 12:14 PM LDLDIRECT 72 08/09/2018 09:39 AM ALT 36 11/29/2023 02:49 PM ALT 29 07/21/2020 12:14 PM HGBA1C 7.2 (H) 11/29/2023 02:49 PM HGBA1C 7.7 (H) 07/21/2020 12:14 PM * Telephone Encounter - Trena Sharpe CMA - 02/01/2024 11:33 AM EDTPending Prescriptions: Disp Refills Clobetasol Propionate 0.05 % External Solu*50 mL 1 Sig: Apply topically to affected area 2 times a day. To affected area for up to two weeks. documented in this encounter Plan of Treatment Upcoming Encounters Date Type Department Care Team (Late st Contact Info) Description 03/09/2024 3:30 PM EDT Office Visit Cardiology, [facility] [address] [place] [address] Kana Somers PA-C [address] [place] [address] 03/14/2024 2:20 PM EDT Office Visit Sleep Disorders Ctr [facility] [address] [place] [phone] Eloisa Lozano DO [address] [place] [address] 04/10/2024 2:00 PM EDT Office Visit Urology, [facility] [address] [place] [address] Valentín Sampson MD [address] [place] [address] 04/27/2024 2:00 PM EDT Office Visit [facility] [address] [place] [address] Eddie Ho MD [address] [place] [address] 07/17/2024 3:20 PM EST Office Visit [facility] [address] [place] [address] Eddie Ho MD [address] [place] [address] 10/19/2024 2:00 PM EDT Office Visit [facility] [address] [place] [address] Eddie Ho MD [address] [place] [address] Health Maintenance Due Date Last Done Comments [...] this encounter Medical Devices Implanted Type Area Mainframe Architect Device Identifier Shelf Expiration Date Model / Serial / Lot Cement Antibiotic Bone - [id number] Implanted:Qty: 2 on 06/21/2018 by Sridhar Grant MD at OR [facility] Right: Knee DESHAWN : ORTHOPAEDICS 12/29/2018 6197-9-010 / / [id number] Triathlon Asyetric X3 Patell - [id number] Implanted:Qty: 1 on 06/21/2018 by Sridhar Grant MD at OR [facility] Right: Knee DESHAWN : ORTHOPAEDICS 03/15/2023 5551-G-350 / / 1VE Component Femoral Rt Size 5 T - [id number] Implanted:Qty: 1 on 06/21/2018 by Sridhar Grant MD at OR [facility] Right: Knee DESHAWN : ORTHOPAEDICS 12/10/2022 5510-F-502 / / [id number] Knee Baseplate Mis Tib Tri 5 - [id number] Implanted:Qty: 1 on 06/21/2018 by Sridhar Grant MD at OR [facility] Right: Knee DESHAWN : ORTHOPAEDICS 01/12/2023 5520-M-500 / / [id number] Knee X3 Ins Pos Cs Sz5 9 - [id number] Implanted:Qty: 1 on 06/21/2018 by Sridhar Grant MD at OR [facility] Right: Knee DESHAWN : ORTHOPAEDICS 10/17/2022 5531-G-509 / / [id number] documented as of this encounter Visit Diagnoses Diagnosis Seborrhea capitis documented in this encounter Advance Directives * [...] patient or by statute hierarchy) Care Teams Radiator Tester Relationship Specialty Start Date End Date Eddie Ho MD [address] [place] [address] PCP - General Family Medicine 07/18/14 documented as of this encounter
--- OUTSIDE RECORDS SUMMARY | 2024-07-27 13:22 | External Medical Summary | Summary of Care ---
Author Name Unknown Organization [facility] Address [address] [place] [address] Phone [phone] Care Team Providers Care Sumo Wrestler Name Role Phone Eddie Ruffin MD Primary Care Provider + Encounter Details Date Type Department Care Team (Late st Contact Info) Description 02/21/2024 Population Health External Data Unspecified Department Allergies Active Allergy Reactions Criticality Noted Date Comments Formoterol High 02/16/2022 Other reaction(s): RASH Lisinopril Cough Low 10/24/2012 Penicillins Other (Please comment) 08/15/2013 Family hx allergic reaction Simvastatin High 02/16/2022 Other reaction(s): RASH documented as of this encounter (statuses as of 02/24/2024) Medications Medication Sig Dispensed Refills Start Date [...] every 10 days E 11.9 3 Each 10/17/2023 Active Dexcom G7 Pure Pak Machine Operator Device Use to read blood [...] Extended Release 24 Hour (Imdur)Indications :Atherosclerosis of [place] coronary artery of [place] heart without angina pectoris TAKE 1 [...] MCG/ACT Inhalation Aerosol Powder Breath Activated (umeclidinium [place]) inhale ONE puff DAILY. 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 90 Tablet 3 01/25/2024 Active HYDROcodone-Acetam inophen 5-325 MG Oral TabletIndications: MEDICATION USE AGREEMENT,Arthriti s of right knee Take 1 Tablet by mouth every 6 hours as needed for Mild pain 60 Tablet 02/01/2024 Active Clobetasol Propionate 0.05 % External SolutionIndication [...] to knees). 300 g 5 02/13/2024 Active documented as of this encounter (statuses as of 02/24/2024) Active Problems Problem Noted Date Diagnosed Date [...] - LAMA Self-Management plan o Other: call [facility] Exacerbation plan o Has not [...] prep) 06/14 abnormal stress test--ref[facility] [place]mild nonobstructive CAD> patent stent. Cont med mgmt 08/14 BRIGITTE- mod BPH 1/14 TTE normal EF, Gr I saavedra Dys, EGD-dilated Schatzki ring 06/13 PFT--normal spirometry with low norm obstructive index. No response to dilator. Normal diffusing. Some air trapping, suggestive flow patterns for obstruction. Acute. HTN, goal below 130/80 05/02/2012 Coronary atherosclerosis of [place] coronary kelby ry 03/06/2012 Overview: 1. S/p NSTEMI--CAD, NSTEMI , PCI with a bare metal stent to the OM1 on 02/03/12 at [facility] 2. 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 2012 PFT-low normal 08/14 CT [facility]-upper lobe emphysema, possible basilar fibrosis Lung density on x-ray 06/04/20132013 Overview: 06/13 density -repeat CXR 1mo Overweight (BMI 25.0-29.9) 04/03/2013 0 04/28/2017 Cough 10/24/2012 05/25/2013 Acute bronchitis, antibiotics not indicated 10/11/2012 05/25/2013 Impacted cerumen 10/11/2012 04/28/2017 Dermatitis 10/11/2012 04/28/2017 HTN, goal below 140/80 03/20/201205/02 Overview: Per HTN Protocol #27. Dyslipidemia, goal LDL below 70 02/07/2012 08/11/2022 [facility] Other*[id number] 02/03/2012 09/07/2016 History of non-ST elevation myocardial [...] as of this encounter (statuses as of 02/24/2024) Immunizations Name Administration Dates Next Due COVID-19 mRNA, LNP-s, No Pre serve, 2-Dose Series ([employer]) 11/05/2020,10/13/2020 H1N1 2009 Influenza, IM 09/18/2009 Pneumococcal [...] 03/09/2024 3:30 PM EDT Office Visit Cardiology, [facility] [address] [place] [address] Kana Somers PA-C [address] [place] [address] 03/14/2024 2:20 PM EDT Office Visit Sleep Disorders Ctr [facility] [address] [place] [phone] Eloisa Lozano, DO [address] [place] [address] 04/10/2024 2:00 PM EDT Office Visit Urology, [facility] [address] [place] [address] Valentín Sampson MD [address] [place] [address] 04/27/2024 2:00 PM EDT Office Visit [facility] [address] [place] [address] Eddie Ruffin MD [address] [place] [address] 07/17/2024 3:20 PM EST Office Visit [facility] [address] [place] [address] Eddie Ruffin MD [address] [place] [address] 10/19/2024 2:00 PM EDT Office Visit [facility] [address] [place] [address] Eddie Ruffin MD [address] [place] [address] Health Maintenance Due Date Last Done Comments Zoster Vaccines (3 of 3) 04/17/2021 02/20/2021, 04/02 Diabetic Foot Exam 02/20/2022 02/20/2021, 1 , 09/22/2018, Additional history exists Depression Monitoring 08/04/2022 08/04/2021 Colonoscopy 03/22/2023 03/22/2018, 03/02, 02/24/2016, Additional history exists COVID-19 Vaccine ( season) 2023 11/05/2020, 10/13/2020 Diabetic Eye Exam 01/29/2024 01/28/2023, , 06/22/2021, Additional history exists *CXR OR CT FOR COPD EVER 02/12/2024 Influenza Vaccine (FLU shot) (#1) 2024 07/01/2023, [...] this encounter Medical Devices Implanted Type Area Tray Delivery Aide Device Identifier Shelf Expiration Date Model / Serial / Lot Cement Antibiotic Bone - [id number] Implanted:Qty: 2 on 06/21/2018 by Sridhar Grant MD at [facility] Right: Knee DESHAWN : ORTHOPAEDICS 12/29/2018 6197-9-010 / / [id number] Triathlon Asyetric X3 Patell - [id number] Implanted:Qty: 1 on 06/21/2018 by Sridhar Grant MD at [facility] Right: Knee DESHAWN : ORTHOPAEDICS 03/15/2023 5551-G-350 / / 1VE Component Femoral Rt Size 5 T - [id number] Implanted:Qty: 1 on 06/21/2018 by Sridhar Grant MD at [facility] Right: Knee DESHAWN : ORTHOPAEDICS 12/10/2022 5510-F-502 / / [id number] Knee Baseplate Mis Tib Tri 5 - [id number] Implanted:Qty: 1 on 06/21/2018 by Sridhar Grant MD at [facility] Right: Knee DESHAWN : ORTHOPAEDICS 01/12/2023 5520-M-500 / / [id number] Knee X3 Ins Pos Cs Sz5 9 - [id number] Implanted:Qty: 1 on 06/21/2018 by Sridhar Grant MD at [facility] Right: Knee DESHAWN : ORTHOPAEDICS 10/17/2022 5531-G-509 / / [id number] documented as of this encounter Advance Directives [...] patient or by statute hierarchy) Care Teams Sumo Wrestler Relationship Specialty Start Date End Date Eddie Ruffin MD [address] [place] [address] PCP - General Family Medicine 07/18/14 documented as of this encounter
--- OUTSIDE RECORDS SUMMARY | 2024-07-27 13:22 | External Medical Summary | Summary of Care ---
Author Name Unknown Organization [facility] Address [address] [place] [address] Phone [phone] Care Team Providers Care Cnc Mill Set Up Operator Name Role Phone Eddie Ho MD Primary Care Provider + Reason for Visit * Reason Comments Medication Refill Encounter Details Date Type Department Care Team (Late st Contact Info) Description 02/10/2024 Refill Family Practice [facility] [address] [place] [address] Eddie Ho MD [address] [place] [address] Allergies Active Allergy Reactions Criticality Noted Date Comments Formoterol High 02/16/2022 Other reaction(s): RASH Lisinopril Cough Low 10/24/2012 Penicillins Other (Please comment) 08/15/2013 Family hx allergic reaction Simvastatin High 02/16/2022 Other reaction(s): RASH documented as of this encounter (statuses as of 02/13/2024) Medications Medication Sig Dispensed Refills Start Date [...] 3 Each 11 10/17/2023 Active Dexcom G7 Economic Manager Device Use to read blood glucose [...] Extended Release 24 Hour (Imdur)Indication s:Atherosclerosis of ramona coronary artery of ramona heart without angina pectoris TAKE 1 TABLET [...] MCG/ACT Inhalation Aerosol Powder Breath Activated (umeclidinium [place]) inhale ONE puff DAILY. 30 Each 7 [...] to knees). 300 g 5 02/13/2024 Active Diclofenac Sodium 1 % External Gel (Voltaren) Apply 4 g topically to affected area 4 times a day as needed (Pain). 100 g 11 01/06/2023 4 Discontinue d(Refill) Tamsulosin HCl 0.4 MG Oral Capsule (Flomax) Take 1 Capsule by mouth in the morning. 30 Capsule 1 12/09/2023 4 Discontinue d(Refill) documented as of this encounter (statuses as of 02/13/2024) Active Problems Problem Noted Date Diagnosed Date [...] 06/14 abnormal stress test--referred for CATH @[facility]--mild nonobstructive CAD> patent stent. Cont med mgmt 08/14 BRIGITTE- mod BPH 08/14 TTE normal EF, Gr I saavedra Dys, EGD-dilated Schatzki ring 06/13 PFT--normal spirometry with low norm obstructive index. No response to dilator. Normal diffusing. Some air trapping, suggestive flow patterns for obstruction. Acute. HTN, goal below 130/80 05/02/2012 Coronary atherosclerosis of ramona coronary kelby ry 03/06/2012 Overview: 1. S/p NSTEMI--CAD, NSTEMI , PCI with a bare metal stent to the OM1 on 02/03/12 at [facility] 2. Patent OM1 stent with mild nonobstructive CAD noted elsewhere via the 06/24/14 catheterization at [facility] following abnormal nuclear stress testing [...] as of this encounter (statuses as of 02/13/2024) Resolved Problems Problem Noted Date Diagnosed Date [...] disease witho ut cerebral infarction 09/22/2018 08/11/2022 half-way (current) use of insulin 08/08/2018 08/11/2022 Old [...] airways disease. 2012 PFT-low normal 08/14 CT [facility]-upper lobe emphysema, possible basilar fibrosis Lung density on x-ray 06/04/20132013 Overview: 06/13 density -repeat CXR 1mo Overweight (BMI 25.0-29.9) 04/03/2013 0 04/28/2017 Cough 10/24/2012 05/25/2013 Acute bronchitis, antibiotics not indicated 10/11/2012 05/25/2013 Impacted cerumen 10/11/2012 04/28/2017 Dermatitis 10/11/2012 04/28/2017 HTN, goal below 140/80 03/20/201205/02 Overview: Per HTN Protocol #27. Dyslipidemia, goal LDL below 70 02/07/2012 08/11/2022 [employer] [facility] [facility] Other*[id number] 02/03/2012 09/07/2016 History of non-ST elevation myocardial [...] as of this encounter (statuses as of 02/13/2024) Immunizations Name Administration Dates Next Due COVID-19 [...] Telephone Encounter - Eddie Ho MD - 02/13/2024 2:56 PM EDTSigned Prescriptions: Disp Refills Tamsulosin HCl 0.4 MG Oral Capsule (Flomax)90 Cap*1 Sig: Take 1 Capsule by mouth in the morning. Authorizing Provider: EDDIE HO Ordering User: KATLYN SPENCE Diclofenac Sodium 1 % External Gel (Voltar*300 g 5 Sig: Apply 4 g topically to affected area 4 times a day as needed (Pain--apply to knees). Authorizing P jose juan: EDDIE HO * Telephone Encounter - Katlyn Spence [facility] - 02/13/2024 9:47 AM EDTPending Prescriptions: Disp Refills Diclofenac Sodium 1 % External Gel (Voltar*100 g 5 Sig: Apply 4 g topically to affected area 4 times a day as needed (Pain). Signed Prescriptions: Disp Refills Tamsulosin HCl 0.4 MG Oral Capsule (Flomax)90 Cap*1 Sig: Take 1 Capsule by mouth in the morning. Authorizing Provider: EDDIE HO Ordering User: KATLYN SPENCE * Telephone Encounter - Katlyn Spence [facility] - 02/13/2024 9:47 AM EDT Pending Prescriptions: Disp Refills Diclofenac Sodium 1 % External Gel ([place]olog[place]*100 g 5 Sig: Apply 4 g topically to affected area 4 times a day as needed (Pain). Signed Prescriptions: Disp Refills Tamsulosin HCl 0.4 MG Oral Capsule (Flomax)90 Cap*1 Sig: Take 1 Capsule by mouth in the morning. Authorizing Provider: EDDIE HO Ordering User: KATLYN SPENCE Last Visit: 01/13/2024 (in office), 04/14/2020 (telemedicine) Next Visit: 04/27/2024 If no future appointments scheduled, and last appointment is greater than a year ago, please schedule patient for a follow-up appointment Last date the medication was ordered: 01/06/23 Pharmacy: [facility] Is this request for a controlled substance? No Urine Drug Screen: Results for orders placed [...] 07/21/2020 12:14 PM * Telephone Encounter - Chung Youssef - 02/10/2024 3:06 PM EDTPending Prescriptions: Disp Refills Tamsulosin HCl 0.4 MG Oral Capsule (Flomax)30 Cap*1 Sig: Take 1Capsule by mouth in the morning. Diclofenac Sodium 1 % External Gel (Voltar*100 g 11 Sig: Apply 4 gtopically to affected area 4 times a day as needed (Pain). documented in this encounter Plan of Treatment Upcoming Encounters Date Type Department Care Team (Late st Contact Info) Description 03/09/2024 3:30 PM EDT Office Visit Cardiology, [facility] [address] [place] [address] Kana Somers PA-C [address] [place] [address] 03/14/2024 2:20 PM EDT Office Visit Sleep Disorders Ctr [facility] [address] [place] [phone] Eloisa Lozano DO [address] [place] [address] 04/10/2024 2:00 PM EDT Office Visit Urology, [facility] [address] [facility] [place] [address] Valentín Sampson MD [address] [place] [phone] 04/27/2024 2:00 PM EDT Office Visit [facility] [address] [place] [address] Eddie Ho MD [address] [place] [address] 07/17/2024 3:20 PM EST Office Visit [facility] [address] [place] [address] Eddie Ho MD [address] [place] [address] 10/19/2024 2:00 PM EDT Office Visit [facility] [address] [facility] [place] [address] Eddie Ho MD [address] [place] [address] Health Maintenance Due Date Last Done Comments [...] this encounter Medical Devices Implanted Type Area Food Order Expediter Device Identifier Shelf Expiration Date Model / Serial / Lot Cement Antibiotic Bone - [id number] Implanted:Qty: 2 on 06/21/2018 by Sridhar Grant MD at OR [facility] Right: Knee DESHAWN : ORTH[employer] 12/29/2018 [id number] / / [id number] Triathlon Asyetric X3 Patell - [id number] Implanted:Qty: 1 on 06/21/2018 by Sridhar Grant MD at OR [facility] Right: Knee DESHAWN : ORTHOPAEDICS 03/15/2023 [id number] / / [id number] Component Femoral Rt Size 5 T - [id number] Implanted:Qty: 1 on 06/21/2018 by Sridhar Grant MD at OR [facility] Right: Knee DESHAWN : ORTHOPA[employer]ICS 12/10/2022 [id number] / / [id number] Knee Baseplate Mis Tib Tri 5 - [id number] Implanted:Qty: 1 on 06/21/2018 by Sridhar Grant MD at OR [facility] Right: Knee DESHAWN : ORTHOPAEDICS 01/12/2023 [id number] / / [id number] Knee X3 Ins Pos Cs Sz5 9 - [id number] Implanted:Qty: 1 on 06/21/2018 by Sridhar Grant MD at OR [facility] Right: Knee DESHAWN : ORTHOPAEDICS 10/17/2022 [id number] / / [id number] documented as of this encounter Advance Directives [...] patient or by statute hierarchy) Care Teams Cnc Mill Set Up Operator Relationship Specialty Start Date End Date Eddie Ho MD [address] [place] [address] PCP - General Family Medicine 07/18/14 documented as of this encounter
[2024-07-27] MEDS ORDERED: PHARMACY GLYCEMIC MGMT CONSULT PRN (13:35)
[2024-07-27] MEDS ORDERED: GLUCOSE 10 TAB/TUBE PO PRN (13:35)
[2024-07-27] MEDS ORDERED: CARBOHYDRATES FOR HYPOGLYCEMIA PO PRN (13:35)
[2024-07-27] MEDS ORDERED: GLUCAGON FOR INJ 1 MG VIAL SQ PRN (13:35)
[2024-07-27] MEDS ORDERED: DEXTROSE 50% 50 ML SYRINGE IV PRN (13:35)
[2024-07-27] MEDS ORDERED: GLUCOSE 40% GEL 15 GM TUBE PO PRN (13:35)
--- NOTE | 2024-07-27 13:44 | History & Physical Report ---
Date of Service July 27, 2024 Assessment & Plan (1) Fall: (2) Fracture, ribs: Plan: Status post mechanical fall Left posterior rib fractures 5th-7th Patient reports chronic balance issues after remote history of intracranial hemorrhage status post surgery Right knee pain, neuropathy likely contributing Walks with a cane/walker at home, receives physical therapy at home CT head: No acute injuries CT chest: Acute left posterior rib fractures with #5-7 Pain control with [place] p.o. which patient has utilized in the past with good results As needed IV morphine Spirometry, Lidoderm patch, ice pack Pacemaker check for completion Right knee pain Chronic as per patient but has been progressive lately, contributing to gait imbalance Chest x-ray of the right knee Ortho consult Urinary incontinence History of BPH is concerned that patient has been having urinary continence for almost every 30 minutes Continue usual Flomax Bladder scan every shift Will likely need Griffiths catheter placement Nystatin powder for inguinal fungal infection Other chronic medical conditions: CAD, CHF Euvolemic Continue usual carvedilol, Lipitor, Imdur, aspirin Diabetes type 2 Usually on Lantus 55 units, metformin, glipizide While admitted Lantus 10 units twice daily, insulin sliding scale, monitor closely A1c in a.m. Hypertension Continue above meds Pulmonary fibrosis, COPD On room air, respiratory status stable GERD Continue pantoprazole History of depression and anxiety Continue sertraline Hold as needed lorazepam as patient will be on [place] and morphine IV DVT prophylaxis Lovenox subcu daily Full code as per patient Disposition Lives with at home PT OT evaluation Admission and Anticipated Discharge Date Admission Date: July 27, 2024 History of Present Illness Chief Complaint: Mechanical fall, left posterior rib pain Primary Care Provider: Eddie Ruffin MD 73-year-old male with history of sick sinus syndrome status post pacemaker placement in August 2023, CAD, CHF, diabetes type 2, hypertension, COPD, pulmonary fibrosis, other problems noted below presenting with fall resulting to left posterior rib pain this morning. Patient obtained from patient and his at the bedside. At baseline, as per family, patient has had chronic balance issues after a intracranial hematoma many years ago. He uses a cane and/or a walker with ambulation, and receives physical therapy at home. This morning, around 1 AM, patient got up to go to the bathroom to urinate. He lost his balance, landing on his back hitting his left posterior chest on the toilet and this posterior head on the wall. Patient experienced severe left posterior rib pain after the fall. He denies any dizziness, loss of consciousness, nausea or vomiting, chest pain, shortness of breath, pal pitations. His immediately went to check on him. She did not witness any seizures or loss of consciousness. She reports that he was having severe pain and did have a hard time getting up. At the ER, patient was doing relatively stable vital signs. CT chest revealing acute left posterior rib fractures #5-7. No pneumothorax. CT head, cervical spine CT, abdominal and pelvic CT no signs of acute injury On exam, patient seen sitting up in bed, not in distress, awake, alert, oriented x 3. Reports severe posterior left rib pain, worse with minimal movement. Denies headache, visual changes, nausea or vomiting, neck pain, chest pain, shortness of breath, abdominal pain. He does report increased right chronic knee pain after the fall. As per , patient also has been having progressive urinary incontinence to the point that he is urinating and wetting himself almost every 30 minutes. Patient denies dysuria, hematuria. Allergies Allergy/AdvReac Type Severity Reaction Status Date / Time formoterol Allergy Intermediate RASH Verified 07/27/24 12:42 simvastatin Allergy Intermediate RASH Verified 07/27/24 12:42 Penicillins Allergy Mild Verified 07/27/24 12:42 lisinopril Allergy Unknown Unknown Verified 07/27/24 12:42 Home Medications Medication Instructions Recorded Confirmed Type insulin glargine 100 unit/mL 50 - 55 unit subcut HS 02/09/19 07/27/24 History subcutaneous solution (Lantus U-100 Insulin) isosorbide mononitrate 30 mg 30 mg PO QAM 02/09/19 07/27/24 History tablet,extended release 24 hr lorazepam 1 mg tablet 1 mg PO BID PRN anxiety/insomnia 02/09/19 07/27/24 History metformin 1,000 mg tablet 1,000 mg PO BIDM 02/09/19 07/27/24 History nitroglycerin 0.4 mg sublingual 0.4 mg sublingual DIRECTED PRN 02/09/19 07/27/24 History tablet chesst pain pantoprazole 40 mg tablet,delayed 40 mg PO DAILY 02/09/19 07/27/24 History release aspirin 81 mg tablet,delayed 81 mg PO QAM 03/08/19 07/27/24 History release mecobalamin (vitamin B12) 1,000 1,000 mcg PO DAILY 09/25/20 07/27/24 History mcg chewable tablet polyethylene glycol 3350 17 17 g PO DIRECTED 02/01/21 07/27/24 History gram/dose oral powder (Miralax) sertraline 100 mg tablet 150 mg PO DAILY 02/01/21 07/27/24 History ferrous sulfate 325 mg (65 mg 325 mg PO Q OTHER DAY 05/27/22 07/27/24 History iron) tablet magnesium oxide 400 mg PO AMHS 05/27/22 07/27/24 History diclofenac sodium 1 % topical gel 4 g EXT Q6 PRN pain #100 grams 05/28/22 07/27/24 Rx (Voltaren Arthritis Pain) albuterol sulfate 90 mcg/actuation 2 puff inhalation Q6 PRN 06/08/22 07/27/24 Rx aerosol inhaler (Ventolin HFA) SOB/Wheezing,cough #6.7 grams triamcinolone acetonide 0.1 % 1 applic topical BID PRN STOMACH 08/06/22 07/27/24 History topical cream RASH atorvastatin 20 mg tablet 20 mg PO DAILY 07/27/24 07/27/24 History carvedilol 3.125 mg tablet 3.125 mg PO BID 07/27/24 07/27/24 History glipizide 10 mg tablet 0 mg PO DAILY 07/27/24 07/27/24 History losartan 25 mg tablet 25 mg PO BID 07/27/24 07/27/24 History tamsulosin 0.4 mg capsule 0.4 mg PO DAILY 07/27/24 07/27/24 History umeclidinium 62.5 mcg/actuation 1 inh inhalation QAM 07/27/24 07/27/24 History blister powder for inhalation (Incruse Ellipta) Past Med/Surg History Problem List Trauma (Acute) Fall (Acute) Fracture, ribs (Acute) Syncope and collapse (Acute) Acute hypotension (Acute) HLD (hyperlipidemia) Hypotension Chronic anemia Anxiety Chronic diastolic heart failure HTN (hypertension) Hypersomnia Pulmonary fibrosis Ex-smoker Obesity Restrictive lung disease COPD with emphysema Abnormal finding on CT scan ASCVD (arteriosclerotic cardiovascular disease) Chronic constipation Chronic 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 Elevated lactic acid level (Acute) Hypotension Ribs, multiple fractures (Acute) Acute chest wall pain (Acute) COPD (chronic obstructive pulmonary disease) (Acute) Vertigo (Acute) H/O intracranial hemorrhage (Acute) Fall (Acute) Coronary artery disease, occlusive (Chronic) "s/p stent" Esophagitis due to drug (Acute) Odynophagia (Acute) GERD (gastroesophageal reflux disease) (Chronic) COPD exacerbation (Acute) DM type 2 (diabetes mellitus, type 2) (Chronic) CAD (coronary artery disease) (Chronic) Tobacco use disorder (Chronic) Mood disorder (Chronic) Lumbago (Chronic) 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) BPH (benign prostatic hypertrophy) (Chronic) H/O subarachnoid hemorrhage (Chronic) Stented coronary artery (Chronic) H/O inguinal hernia repair (Chronic) S/P cardiac cath (Chronic) History of carpal tunnel surgery (Chronic) Medical History HLD (hyperlipidemia) Hypotension Chronic diastolic heart failure Syncope and collapse Chronic constipation Chronic 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 Hypotension Ribs, multiple fractures Syncope Syncope and collapse Hematoma of cerebellum Hypomagnesemia H/O subarachnoid hemorrhage BPH (benign prostatic hypertrophy) Sensorineural hearing loss of both ears Lumbago Mood disorder Tobacco use disorder CAD (coronary artery disease) DM type 2 (diabetes mellitus, type 2) GERD (gastroesophageal reflux disease) Coronary artery disease, occlusive Surgical History S/P total knee arthroplasty History of carpal tunnel surgery S/P cardiac cath H/O inguinal hernia repair Stented coronary artery Family History Other COPD (chronic obstructive pulmonary disease) Diabetes Heart disease Rheumatoid arthritis Social History Smoking Status: Former smoker Tobacco Type: Smokeless Tobacco (Dip or Chew) Second Hand Exposure: No; Do You Dip or Chew Tobacco: Yes; Hx Alcohol Use: No Hx Substance Use: No Preferred Language: Ukrainian Communication Ability: Effective Wool Buyer Required: No Beliefs That Will Affect Care: None Current Living Situation: Spouse Feels Safe at Home: Yes Safety Concerns: Feels Safe At This Time Assistive Devices: CPAP, Walker and Wheelchair Review of Systems Review of Systems: all noted and negative except for above Physical Exam Physical Exam: General- oriented x 3, not in distress, speaks in sentences with no effort or accessory muscle use Head- atraumatic Eyes- PERRL, EOMI, anicteric ENT- oropharynx clear Neck- supple, no JVD, no adenopathy, no thyromegaly; carotids +2/2, no bruits appreciated Lungs- clear to auscultation bilaterally, no rales/wheezes Posterior Rib- not assessed as patient was having severe pain but no visible injuries noted on the lateral chest wall Heart- normal rate, regular rhythm; no murmur, no gallop, no rub appreciated Abdomen- normal bowel sounds, nondistended, soft, nontender, no masses or hepatosplenomegaly Extremities- no pretibial edema, no calf tenderness; peripheral pulses intact Neuro- alert, oriented x 3; CN 2-12 grossly intact; motor 5/5 bilaterally;sensation 100% on all extremities; no other gross focal neurologic deficits Skin- warm & dry Results & Data Results & Data Vital Signs (Past 12 Hours) Vital Signs Temp Pulse Pulse Resp BP BP Pulse Ox 07/27/24 13:05 65 18 138/86 94 07/27/24 12:00 112/75 07/27/24 11:54 62 15 92 07/27/24 11:48 62 14 92 07/27/24 11:30 137/74 07/27/24 11:26 64 20 161/85 H 91 07/27/24 10:51 68 19 171/85 H 96 07/27/24 10:23 72 07/27/24 10:20 36.6 C 71 17 196/105 H 97 O2 Del Method 07/27/24 13:05 Room Air 07/27/24 12:00 07/27/24 11:54 Room Air 07/27/24 11:48 Room Air 07/27/24 11:30 07/27/24 11:26 Room Air 07/27/24 10:51 Room Air 07/27/24 10:23 07/27/24 10:20 Room Air Code Status & VTE Plan VTE Prophylaxis Plan VTE Prophylaxis will be ordered: Yes (1) Fall Encounter type: initial encounter Qualified Code(s): W19.XXXA - Unspecified fall, initial encounter (2) Fracture, ribs Encounter type: initial encounter Fracture type: closed Laterality: unspecified laterality Qualified Code(s): S22.49XA - Multiple fractures of ribs, unspecified side, initial encounter for closed fracture
[2024-07-27] MEDS: LIDOCAINE 5% 1 PATCH TD SCH (14:02)
--- NOTE | 2024-07-27 14:03 | Pharmacy Report ---
Pharmacy Glycemic Short Note 2 - Date of Service July 27, 2024 - Glycemic Short BSG Results (Last 24 hours): 07/27/24 07/27/24 10:28 10:35 Glucose 195 H POC Glucose (other) 190 H OUTPATIENT ANTIDIABETIC REGIMEN: * glipizide 10 mg daily, metformin 1 gm bid, Lantus 50-55 units HS ASSESSMENT: * 73 year old admitted with dizziness, s/p fall - pharmacy consulted for glycemic management. BSGs >180 this AM, diet ordered. Will trial weight based stress 2 dosing for novolog and have scale for Lantus at HS. PLAN FOR INPATIENT GLYCEMIC CONTROL: * Hold outpatient oral diabetes medications * Basal insulin * Lantus 20-30 units hs * Bolus insulin * NovoLog per scale ACHS or Q6hrs while NPO * Goal Range: Low 110 mg/dL - High 140 mg/dL * Correction Factor: 30 mg/dL/unit * Nutritional / Prandial insulin per carb ratio of 1 unit per 10 grams CHO consumed
--- NOTE | 2024-07-27 14:28 | XRay Report ---
XR knee RT 1 or 2V routine CLINICAL HISTORY: severe pain, s/p fall TECHNIQUE: 2 views of the right knee were obtained. Comparison: Comparison is made to knee radiographs 12/30/2017 FINDINGS: There is no evidence of an acute fracture. Patient is status post total knee arthroplasty. No perihar dware lucency or hardware fracture is seen. No joint effusion is seen. Vascular calcifications are no sara. IMPRESSION: No evidence of acute osseous injury. ACT 112: Negative or not required by law. Electronically signed by: Luther Marcial M.D. 07/27/2024 2:27 PM
[2024-07-27] MEDS ORDERED: ALBUTEROL HFA 8 GM INHALER INH PRN (15:00)
[2024-07-27] MEDS ORDERED: NITROGLYCERIN SL 0.4 MG/TAB TAB SL PRN (15:00)
--- NOTE | 2024-07-27 15:20 | Orthopedic Consultation ---
Date of Consultation July 27, 2024 Assessment & Plan (1) Right knee pain: Patient seen with Dr. Early, Knee X-rays reviewed by myself and Dr. Gannon showing no evidence of acute fracture or prosthesis loosening. Final radiology read similar. Range of motion is quite good and no instability is appreciated on physical exam. He is neurovascularly intact. No evidence of infectious process or acute traumatic injury requiring surgical intervention. Discussed with patient that he may benefit from seeing a joint revision specialist either through [facility] or [place] on an outpatient basis in the future, but his acute problems/injuries take priority for this hospital stay. Given his subjective instability, I fitted him for a crossrunner knee brace to give him some added support and stability. He can wear this when active, as needed. Recommend PT/OT Walker for stability given frequent falls. Pain medication and DVT prophylaxis per primary service. Orthopedics will sign off for now. Do not hesitate to contact for any additional questions or concerns. Supervising Physician Co-Signing Physician Notes i, Dr. Gannon, saw and examined the patient with my PA and agree with the above findings and plan of care, I developed and discussed with my PA. History of Present Illness Reason for Consultation: Right knee pain Attending Physician: Puneet Pete MD History of Present Illness This is a 73-year-old male with a history of sick sinus syndrome, coronary artery disease, CHF, type 2 diabetes, hypertension, COPD, pulmonary fibrosis, history of right total knee arthroplasty 5 or [address] Grant at [facility], presented to the ER early this morning with rib pain secondary to a fall that occurred overnight. History of chronic balance problems secondary to an intracranial hematoma many years ago. Generally uses a cane, walker, or is in a wheelchair at times and receives physical therapy at home. In the ER, CT imaging demonstrated left posterior rib fractures 5 through 7 and the patient was subsequently admitted. Orthopedics was consulted due to ongoing right knee pain and subjective instability which may or may not have contributed to the fall. He underwent total knee arthroplasty 5 or 6 years ago in [place] and states that it "never took." He can feel it "bumping" around at times. He states that he saw orthopedics in [facility] some time after the surgery but did not pursue any further intervention. Allergies Allergy/AdvReac Type Severity Reaction Status Date / Time formoterol Allergy Intermediate RASH Verified 07/27/24 12:42 simvastatin Allergy Intermediate RASH Verified 07/27/24 12:42 Penicillins Allergy Mild Verified 07/27/24 12:42 lisinopril Allergy Unknown Unknown Verified 07/27/24 12:42 Home Medications Medication Instructions Recorded Confirmed Type insulin glargine 100 unit/mL 50 - 55 unit subcut HS 02/09/19 07/27/24 History subcutaneous solution (Lantus U-100 Insulin) isosorbide mononitrate 30 mg 30 mg PO QAM 02/09/19 07/27/24 History tablet,extended release 24 hr lorazepam 1 mg tablet 1 mg PO BID PRN anxiety/insomnia 02/09/19 07/27/24 History metformin 1,000 mg tablet 1,000 mg PO BIDM 02/09/19 07/27/24 History nitroglycerin 0.4 mg sublingual 0.4 mg sublingual DIRECTED PRN 02/09/19 07/27/24 History tablet chesst pain pantoprazole 40 mg tablet,delayed 40 mg PO DAILY 02/09/19 07/27/24 History release aspirin 81 mg tablet,delayed 81 mg PO QAM 03/08/19 07/27/24 History release mecobalamin (vitamin B12) 1,000 1,000 mcg PO DAILY 09/25/20 07/27/24 History mcg chewable tablet polyethylene glycol 3350 17 17 g PO DIRECTED 02/01/21 07/27/24 History gram/dose oral powder (Miralax) sertraline 100 mg tablet 150 mg PO DAILY 02/01/21 07/27/24 History ferrous sulfate 325 mg (65 mg 325 mg PO Q OTHER DAY 05/27/22 07/27/24 History iron) tablet magnesium oxide 400 mg PO AMHS 05/27/22 07/27/24 History diclofenac sodium 1 % topical gel 4 g EXT Q6 PRN pain #100 grams 05/28/22 07/27/24 Rx (Voltaren Arthritis Pain) albuterol sulfate 90 mcg/actuation 2 puff inhalation Q6 PRN 06/08/22 07/27/24 Rx aerosol inhaler (Ventolin HFA) SOB/Wheezing,cough #6.7 grams triamcinolone acetonide 0.1 % 1 applic topical BID PRN STOMACH 08/06/22 07/27/24 History topical cream RASH atorvastatin 20 mg tablet 20 mg PO DAILY 07/27/24 07/27/24 History carvedilol 3.125 mg tablet 3.125 mg PO BID 07/27/24 07/27/24 History glipizide 10 mg tablet 0 mg PO DAILY 07/27/24 07/27/24 History losartan 25 mg tablet 25 mg PO BID 07/27/24 07/27/24 History tamsulosin 0.4 mg capsule 0.4 mg PO DAILY 07/27/24 07/27/24 History umeclidinium 62.5 mcg/actuation 1 inh inhalation QAM 07/27/24 07/27/24 History blister powder for inhalation (Incruse Ellipta) Patient History Medical History Syncope and collapse Syncope Syncope and collapse Hematoma of cerebellum s/p evacuation Hypomagnesemia Surgical History S/P total knee arthroplasty Family History Other COPD (chronic obstructive pulmonary disease) Diabetes Heart disease Rheumatoid arthritis Social History Smoking Status: Former smoker Tobacco Type: Smokeless Tobacco (Dip or Chew) Second Hand Exposure: No; Do You Dip or Chew Tobacco: Yes; Hx Alcohol Use: No Hx Substance Use: No Preferred Language: Rwand[place] Communication Ability: Effective Duck Operator Required: No Beliefs That Will Affect Care: None Current Living Situation: Spouse Feels Safe at Home: Yes Assistive Devices: CPAP, Walker and Wheelchair Physical Exam Physical Exam: CONSTITUTIONAL: Resting comfortably in bed. In no distress. Conversational. CARDIOVASCULAR: Right DP pulse 2+ MUSCULOSKELETAL: Right lower extremity: No deformities. Patella in-line, intact. Knee with no effusion. There is no erythema or warmth, no soft tissue swelling about the knee. Knee active range of motion: 3 to 120 degrees. Performs straight leg raise with no difficulty. No joint instability is appreciated. Strength 5/5 with ankle plantarflexion and dorsiflexion. Able to move all toes. SKIN: [place], warm, dry NEUROLOGIC: No sensory deficits to light touch in. Right lower extremity Results & Data Vital Signs (Past 12 Hours) Vital Signs Temp Pulse Pulse Resp BP BP Pulse Ox 07/27/24 15:11 62 14 91 07/27/24 15:00 133/74 07/27/24 14:35 65 17 92 07/27/24 14:30 137/65 07/27/24 14:13 07/27/24 14:13 67 14 141/78 H 93 07/27/24 14:02 65 15 94 07/27/24 14:00 141/78 H 07/27/24 13:31 141/81 H 07/27/24 13:29 67 17 94 07/27/24 13:05 65 18 138/86 94 07/27/24 12:00 112/75 07/27/24 11:54 62 15 92 07/27/24 11:48 62 14 92 07/27/24 11:30 137/74 07/27/24 11:26 64 20 161/85 H 91 07/27/24 10:51 68 19 171/85 H 96 07/27/24 10:23 72 07/27/24 10:20 97.9 F 71 17 196/105 H 97 O2 Del Method 07/27/24 15:11 Room Air 07/27/24 15:00 07/27/24 14:35 Room Air 07/27/24 14:30 07/27/24 14:13 Room Air 07/27/24 14:13 Room Air 07/27/24 14:02 Room Air 07/27/24 14:00 07/27/24 13:31 07/27/24 13:29 Room Air 07/27/24 13:05 Room Air 07/27/24 12:00 07/27/24 11:54 Room Air 07/27/24 11:48 Room Air 07/27/24 11:30 07/27/24 11:26 Room Air 07/27/24 10:51 Room Air 07/27/24 10:23 07/27/24 10:20 Room Air Laboratory Results 07/27/24 07/27/24 07/27/24 14:45 10:35 10:28 WBC 9.50 RBC 4.45 L Hgb 14.0 POC Hgb 14.6 Hct 41.0 L POC Hct 43 MCV 92.1 MCH 31.5 MCHC 34.1 RDW Std Deviation 50.4 H RDW Coeff of Alesia 14.8 H Plt Count 184 MPV 9.0 L Immature Gran % (Auto) 0.7 Neut % (Auto) 65.4 Lymph % (Auto) 16.4 [place] % (Auto) 10.2 Eos % (Auto) 6.2 Baso % (Auto) 1.1 Neut # (Auto) 6.21 Lymph # (Auto) 1.56 [place] # (Auto) 0.97 H Eos # (Auto) 0.59 H Baso # (Auto) 0.10 Immature Gran # (Auto) 0.07 PT 10.9 INR 1.0 APTT 28 PTT Ratio 1.0 POC Sodium 135 Sodium 134 L POC Potassium 4.6 Potassium 4.6 POC Chloride 99 L Chloride 99 Carbon Dioxide 26 POC Total CO2 26 Anion Gap 9 POC Anion Gap 16.0 POC BUN 18 BUN 17 Creatinine 1.29 POC Creatinine 1.3 Est Cr Clr Drug Dosing 55.9 eGFR 57.82 BUN/Creatinine Ratio 13.2 Glucose 195 H POC Glucose 107 H POC Glucose (other) 190 H Calcium 10.1 POC Ioniz Calcium Amando 1.22 Total Bilirubin 0.5 AST 23 ALT 27 Alkaline Phosphatase 78 Total Protein 7.7 Albumin 4.5 Globulin 3.2 Albumin/Globulin Ratio 1.4 Lipase 23 Diagnostic Findings XR knee RT 1 or 2V routine CLINICAL HISTORY: severe pain, s/p fall TECHNIQUE: 2 views of the right knee were obtained. Comparison: Comparison is made to knee radiographs 12/30/2017 FINDINGS: There is no evidence of an acute fracture. Patient is status post total knee arthroplasty. No perihardware lucency or hardware fracture is seen. No joint effusion is seen. Vascular calcifications are noted. IMPRESSION: No evidence of acute osseous injury. ACT 112: Negative or not required by law. Electronically signed by: Luther Marcial M.D. 07/27/2024 2:27 PM (1) Right knee pain Chronicity: chronic Qualified Code(s): M25.561 - Pain in right knee; G89.29 - Other chronic pain
[2024-07-27] MEDS: INSULIN ASPART PER UNIT CHARGE SC SCH (15:24)
[2024-07-27] MEDS: POLYETHYLENE (MIRALAX) 17 GM PACK PO SCH (15:53)
--- NOTE | 2024-07-27 15:55 | Electrocardiogram Report ---
Test Reason : Blood Pressure : */* mmHG Vent. Rate : 70 BPM Atrial Rate : 70 BPM P-R Int : 174 ms QRS Dur : 76 ms QT Int : 400 ms P-R-T Axes : 50 -11 110 degrees QTcB Int : 432 ms Normal sinus rhythm Possible Left atrial enlargement Nonspecific T wave abnormality Abnormal ECG When compared with ECG of 22-Aug-2022 05:42, No significant change was found Confirmed by Sridhar Barcenas ([id number]) on 07/27/2024 3:54:45 PM Referred By: REFERRED SELF Confirmed By: Sridhar Barcenas
[2024-07-27] MEDS: HYDROCODONE/ACETAMOPHEN 5/325MG TAB PO PRN (16:10)
[2024-07-27] MEDS: carvediloL 3.125 MG TAB PO SCH (17:19)
[2024-07-27] MEDS: FERROUS SULFATE 325 MG TAB PO SCH (17:19)
[2024-07-27] MEDS: MAGNESIUM OXIDE 400 MG TAB PO SCH (20:04)
[2024-07-27] MEDS: NYSTATIN POWDER 15GM BTL EXT SCH (20:05)
[2024-07-27] MEDS: LOSARTAN POTASSIUM 25 MG TAB PO SCH (20:05)
[2024-07-27] MEDS: LORazepam 0.5 MG TAB PO STA (21:25)
[2024-07-27] MEDS: FINASTERIDE 5 MG TAB PO SCH (21:25)
[2024-07-27] MEDS: LANTUS PER UNIT CHARGE SQ SCH (21:39)
[2024-07-28] MEDS: CYANOCOBALAMIN (B-12) 500 MCG TABLET PO SCH (07:33)
[2024-07-28] MEDS: ISOSORBIDE MONO EXTENDED REL 30 MG TABCR PO SCH (07:33)
[2024-07-28] MEDS: SERTRALINE HCL 50 MG TABLET PO SCH (07:33)
[2024-07-28] MEDS: ASPIRIN 81 MG ECTAB PO SCH (07:34)
[2024-07-28] MEDS: TAMSULOSIN HCL 0.4 MG CAP PO SCH (07:34)
[2024-07-28] MEDS: PANTOprazole 40 MG TAB PO SCH (07:34)
[2024-07-28] MEDS: ATORVASTATIN 20 MG TAB PO SCH (07:34)
[2024-07-28] MEDS: UMECLIDINIUM BROMIDE 62.5MCG/BLISTER 7 PUFFS/INHALER INH SCH (07:35)
[2024-07-28 07:56] LABS: Basophils # (auto) 0.06 K/uL (0.00-0.20); Basophils % (auto) 0.8 %; Eosinophils # (auto) 0.42 K/uL (0.00-0.50); Eosinophils % (auto) 5.6 %; Hematocrit (blood only) 38.8 % (42.0-52.0); Hemoglobin 13.3 g/dl (14.0-18.0); Immature Granulocytes # (auto) 0.05 K/uL (0.01-0.20); Immature Granulocytes % (auto) 0.7 %; Lymphocytes # (auto) 1.41 K/uL (1.20-3.40); Lymphocytes % (auto) 18.8 %; Mean Corpuscular Hemoglobin 31.4 pg (25.0-34.0); Mean Corpuscular Hgb Conc 34.3 g/dL (32.0-36.0); Mean Corpuscular Volume 91.7 fL (80.0-100.0); Mean Platelet Volume 8.9 fL (9.4-12.4); Monocytes # (auto) 0.85 K/uL (0.11-0.59); Monocytes % (auto) 11.3 %; Neutrophils % (auto) 62.8 %; Platelet Count 156 K/uL (130-400); RDW Coefficient of Variation 14.8 % (11.5-14.5); RDW Standard Deviation 50.1 fL (36.4-46.3); Red Blood Count 4.23 M/uL (4.70-6.10); White Blood Count 7.49 K/ul (4.8-10.8)
[2024-07-28 07:58] LABS: Estimated Average Glucose 148 mg/dl; Hemoglobin A1C 6.8 % (4.5-5.6)
[2024-07-28 08:11] LABS: Albumin Globulin Ratio 1.4 (0.9-2); Albumin Level 4.1 gm/dl (3.4-5.0); BUN Creatinine Ratio 15.4 (10-20); Bilirubin,Total 0.4 mg/dl (0.2-1.0); Calcium 9.7 mg/dl (8.6-10.3); Creatinine Clr Calc Pharmacy 60.3 ml/min; Potassium 4.3 mmol/L (3.5-5.1); Total Protein 7.1 gm/dl (6.0-8.3)
[2024-07-28] MEDS: HYDROmorphone INJ 0.5 MG/0.5 ML SYR IV STA (08:48)
[2024-07-28] MEDS: hydrALAZINE HCL 20 MG/ML VIAL IV ONE (08:49)
[2024-07-28] MEDS ORDERED: POLYETHYLENE (MIRALAX) 17 GM PACK PO SCH (09:00)
--- NOTE | 2024-07-28 14:54 | Hospitalist Progress Note ---
Date of Service July 28, 2024 Assessment & Plan (1) Fall: (2) Fracture, ribs: Plan: Mr. Badillo is a 73-year-old male with history of sick sinus syndrome status post pacemaker placement in August 2023, CAD, CHF, diabetes type 2, hypertension, COPD, pulmonary fibrosis, other problems noted below admitted due to rib fractures 2/2 mechanical fall. Patient evaluated for right knee pain by ortho, who feels patient would be best suited for follow up with a joint revision specialist as OP. A brace was fitted in interim. Plan for adjusting pain regimen and PT/OT eval #Hypertensive urgency iso severe pain this am Managed with home regimen and IV prn continue active analgesia #Status post mechanical fall #Left posterior rib fractures 5th-7th Walks with a cane/walker at home, receives physical therapy at home CT head: No acute injuries CT chest: Acute left posterior rib fractures with #5-7 Pain control with Toponas p.o. which patient has utilized in the past with good results As needed IV morphine encoruaged Spirometry, Lidoderm patch, ice pack Pacemaker check for completion Monitor mentation on opioids start bowel regimen #Right knee pain Chronic as per patient but has been progressive lately, contributing to gait imbalance Ortho: follow up with joint revision specialist as OP, brace fitted PT/OT #Urinary incontinence #History of BPH Continue usual Flomax and Proscar bladder scan #CAD, CHF Euvolemic Continue usual carvedilol, Lipitor, Imdur, aspirin 3Diabetes type 2 Usually on Lantus 55 units, metformin, glipizide While admitted Lantus 10 units twice daily, insulin sliding scale, monitor closely A1c in a.m. #Pulmonary fibrosis, COPD On room air, respiratory status stable #GERD Continue pantoprazole #History of depression and anxiety Continue sertraline Hold as needed lorazepam as patient will be on Toponas and morphine IV DVT prophylaxis Lovenox subcu daily Full code as per patient Disposition Lives with at home PT OT pending Admission and Anticipated Discharge Date Admission Date: July 27, 2024 Subjective On going left rib pain from fractures Denies chest pain, palpitations but reports discomfort with inhalation states right knee somewhat stable at this point but has yet to ambulate Physical Exam Constitutional: uncomfortable 2/2 pain Respiratory: diminshed 2/2 effort Cardiovascular: RRR, no murmur, no edema Musculoskeletal: right knee brace in place Results & Data Results & Data Vital Signs (Past 12 Hours) Vital Signs Temp Pulse Pulse Resp BP BP Pulse Ox 07/28/24 13:55 68 07/28/24 11:16 36.6 C 63 15 134/71 92 07/28/24 09:15 168/77 H 07/28/24 07:35 36.5 C 63 17 200/95 H 92 07/28/24 07:35 07/28/24 07:00 62 07/28/24 02:50 36.6 C 66 18 169/85 H 91 O2 Del Method 07/28/24 13:55 07/28/24 11:16 Room Air 07/28/24 09:15 07/28/24 07:35 Room Air 07/28/24 07:35 Room Air 07/28/24 07:00 07/28/24 02:50 Room Air Laboratory Results Short CBC 07/28/24 Range/Units 07:23 WBC 7.49 (4.8-10.8) K/ul Hgb 13.3 L (14.0-18.0) g/dl Hct 38.8 L (42.0-52.0) % Plt Count 156 (130-400) K/uL BMP 07/28/24 07:23 Sodium 136 Potassium 4.3 Chloride 101 Carbon Dioxide 27 BUN 18 Creatinine 1.17 Glucose 155 H Calcium 9.7 Liver Function 07/28/24 Range/Units 07:23 Total Bilirubin 0.4 (0.2-1.0) mg/dl AST 21 (13-39) U/L ALT 23 (7-52) U/L Alkaline Phosphatase 70 (34-104) U/L Albumin 4.1 (3.4-5.0) gm/dl Medications Administered Home Medications Medication Instructions Recorded Confirmed Last Taken insulin glargine 100 unit/mL 50 - 55 unit subcut HS 02/09/19 07/27/24 08/05/22 subcutaneous solution (Lantus U-100 Insulin) isosorbide mononitrate 30 mg 30 mg PO QAM 02/09/19 07/27/24 08/06/22 tablet,extended release 24 hr lorazepam 1 mg tablet 1 mg PO BID PRN anxiety/insomnia 07/12/19 12/27/24 11/07/20 metformin 1,000 mg tablet 1,000 mg PO BIDM 02/09/19 07/27/24 08/06/22 08:00 nitroglycerin 0.4 mg sublingual 0.4 mg sublingual DIRECTED PRN 02/09/19 07/27/24 Unknown tablet chesst pain pantoprazole 40 mg tablet,delayed 40 mg PO DAILY 02/09/19 07/27/24 08/06/22 release aspirin 81 mg tablet,delayed 81 mg PO QAM 03/08/19 07/27/24 08/06/22 release mecobalamin (vitamin B12) 1,000 1,000 mcg PO DAILY 09/25/20 07/27/24 08/06/22 mcg chewable tablet polyethylene glycol 3350 17 17 g PO DIRECTED 02/01/21 07/27/24 08/06/22 gram/dose oral powder (Miralax) sertraline 100 mg tablet 150 mg PO DAILY 02/01/21 07/27/24 08/06/22 ferrous sulfate 325 mg (65 mg 325 mg PO Q OTHER DAY 05/27/22 07/27/24 Unknown iron) tablet magnesium oxide 400 mg PO AMHS 05/27/22 07/27/24 08/06/22 08:00 diclofenac sodium 1 % topical gel 4 g EXT Q6 PRN pain #100 grams 05/28/22 07/27/24 Unknown (Voltaren Arthritis Pain) albuterol sulfate 90 mcg/actuation 2 puff inhalation Q6 PRN 06/08/22 07/27/24 Unknown aerosol inhaler (Ventolin HFA) SOB/Wheezing,cough #6.7 grams triamcinolone acetonide 0.1 % 1 applic topical BID PRN STOMACH 08/06/22 07/27/24 Unknown topical cream RASH atorvastatin 20 mg tablet 20 mg PO DAILY 07/27/24 07/27/24 Unknown carvedilol 3.125 mg tablet 3.125 mg PO BID 07/27/24 07/27/24 Unknown glipizide 10 mg tablet 0 mg PO DAILY 07/27/24 07/27/24 Unknown losartan 25 mg tablet 25 mg PO BID 07/27/24 07/27/24 Unknown tamsulosin 0.4 mg capsule 0.4 mg PO DAILY 07/27/24 07/27/24 Unknown umeclidinium 62.5 mcg/actuation 1 inh inhalation QAM 07/27/24 07/27/24 Unknown blister powder for inhalation (Incruse Ellipta) Active Medications Generic Name Dose Route Start Last Admin Trade Name Freq PRN Reason Stop Dose Admin Acetaminophen 650 mg 07/27/24 12:47 07/27/24 13:14 Acetaminophen 325 Mg Tab PO 08/26/24 12:46 650 mg Q4H PRN Administration Pain or Fever Hydrocodone Bitart/Acetaminophen 1 tab 07/27/24 13:29 07/28/24 11:46 Hydrocodone/Acetamophen 5/325mg Tab PO 08/10/24 13:28 1 tab Q4H PRN Administration moderate to severe pain Aspirin 81 mg 07/28/24 09:00 07/28/24 07:34 Aspirin 81 Mg Ectab PO 08/27/24 08:59 81 mg QAM AUDREY Administration Atorvastatin Calcium 20 mg 07/28/24 09:00 07/28/24 07:34 Atorvastatin 20 Mg Tab PO 08/27/24 08:59 20 mg DAILY AUDREY Administration Carvedilol 3.125 mg 07/27/24 17:00 07/28/24 07:34 Carvedilol 3.125 Mg Tab PO 08/26/24 16:59 3.125 mg BIDM AUDREY Administration Cyanocobalamin 1,000 mcg 07/28/24 09:00 07/28/24 07:33 Cyanocobalamin (B-12) 500 Mcg Tablet PO 08/27/24 08:59 1,000 mcg DAILY AUDREY Administration Ferrous Sulfate 325 mg 07/27/24 15:15 07/27/24 17:19 Ferrous Sulfate 325 Mg Tab PO 08/26/24 15:14 325 mg Q2D AUDREY Administration Finasteride 5 mg 07/27/24 21:00 07/27/24 21:25 Finasteride 5 Mg Tab PO 08/26/24 20:59 5 mg HS AUDREY Administration Insulin Aspart 0 units 07/27/24 14:00 07/28/24 13:07 Insulin Aspart Per Unit Charge SC 08/26/24 13:59 8 units ACHS AUDREY Administration Insulin Glargine 0 units 07/27/24 21:00 07/27/24 21:39 Lantus Per Unit Charge SQ 08/26/24 20:59 Not Given HS AUDREY Protocol Isosorbide Mononitrate 30 mg 07/28/24 09:00 07/28/24 07:33 Isosorbide [place] Extended Rel 30 Mg Tabcr PO 08/27/24 08:59 30 mg QAM AUDREY Administration Lidocaine 1 patch 07/27/24 12:47 07/28/24 07:34 Lidocaine 5% 1 Patch TD 08/26/24 12:46 1 patch QAM AUDREY Administration Losartan Potassium 25 mg 07/27/24 21:00 07/28/24 07:33 Losartan Potassium 25 Mg Tab PO 08/26/24 20:59 25 mg BID AUDREY Administration Magnesium Oxide 400 mg 07/27/24 21:00 07/28/24 07:34 Magnesium Oxide 400 Mg Tab PO 08/26/24 20:59 400 mg AMHS AUDREY Administration Miscellaneous 1 each 07/27/24 21:00 07/27/24 20:05 Remove Lidoderm Patch N/A 08/26/24 20:59 1 each DAILY@2100 AURDEY Administration Morphine Sulfate 3 mg 07/27/24 13:29 07/27/24 18:14 Morphine Sulfate 4 Mg/Ml 1 Ml Carp\Vial IV 08/10/24 13:28 3 mg Q4H PRN Administration severe pain Nystatin 1 appln 07/27/24 21:00 07/28/24 08:52 Nystatin Powder 15gm Btl EXT 08/26/24 20:59 1 appln BID AUDREY Administration Pantoprazole Sodium 40 mg 07/28/24 09:00 07/28/24 07:34 Pantoprazole 40 Mg Tab PO 08/27/24 08:59 40 mg DAILY AUDREY Administration Polyethylene Glycol 17 gm 07/27/24 15:00 07/28/24 07:37 Polyethylene (Miralax) 17 Gm Pack PO 08/26/24 14:59 Not Given DAILY AUDREY Sertraline HCl 150 mg 07/28/24 09:00 07/28/24 07:33 Sertraline Hcl 50 Mg Tablet PO 08/27/24 08:59 150 mg DAILY AUDREY Administration Tamsulosin HCl 0.4 mg 07/28/24 09:00 07/28/24 07:34 Tamsulosin Hcl 0.4 Mg Cap PO 08/27/24 08:59 0.4 mg DAILY AUDREY Administration Umeclidinium [place] 1 puffs 07/28/24 09:00 07/28/24 07:35 Umeclidinium [place] 62.5mcg/Blister 7 Puffs/Inhaler INH 08/27/24 08:59 1 puffs QAM AUDREY Administration (1) Fall Encounter type: initial encounter Qualified Code(s): W19.XXXA - Unspecified fall, initial encounter (2) Fracture, ribs Encounter type: initial encounter Fracture type: closed Laterality: unspecified laterality Qualified Code(s): S22.49XA - Multiple fractures of ribs, unspecified side, initial encounter for closed fracture
[2024-07-28] MEDS: DOCUSATE SODIUM/SENNA 50/8.6MG TAB PO SCH (15:59)
[2024-07-28] MEDS: LORazepam 1 MG TAB PO SCH (22:16)
[2024-07-28] MEDS: hydrALAZINE HCL 20 MG/ML VIAL IV STA (23:30)
[2024-07-29 05:30] LABS: Appearance Urine Clear (Clear); Bacteria Urine Automated 1+ (None Seen); Bilirubin Urine Negative (Negative); Blood Urine Negative (Negative); Cast Urine Automated 0-2 /lpf (0-2); Color Urine Yellow; Epithelial Cell Urine Auto 0-2 /hpf (0-2); Glucose Urine UA Negative (Negative); Ketones Urine Negative (Negative); Leukocyte Esterase Urine Negative (Negative); Nitrite Urine Negative (Negative); Protein Urine 2+ (Negative); RBC Urine Automated 0-2 /hpf (0-2); Specific Gravity Urine 1.007 (1.000-1.030); Urobilinogen Urine Negative (Negative); WBC Urine Automated 0-5 /hpf (0-5); pH Urine 8.5 (4.5-7.5)
[2024-07-29 08:09] LABS: Hematocrit (blood only) 42.4 % (42.0-52.0); Hemoglobin 14.4 g/dl (14.0-18.0); Mean Corpuscular Hemoglobin 30.6 pg (25.0-34.0); Mean Platelet Volume 9.1 fL (9.4-12.4); Platelet Count 183 K/uL (130-400); RDW Coefficient of Variation 15.1 % (11.5-14.5); RDW Standard Deviation 50.4 fL (36.4-46.3); Red Blood Count 4.71 M/uL (4.70-6.10); White Blood Count 9.45 K/ul (4.8-10.8)
[2024-07-29 08:31] LABS: BUN Creatinine Ratio 15.2 (10-20); Calcium 9.9 mg/dl (8.6-10.3); Creatinine Clr Calc Pharmacy 61.9 ml/min; Magnesium 1.8 mg/dl (1.7-2.4); Phosphorus 3.5 mg/dl (2.5-4.9); Potassium 4.2 mmol/L (3.5-5.1)
--- NOTE | 2024-07-29 09:46 | Orthopedic Progress Note ---
Date of Service July 29, 2024 Assessment & Plan (1) Right knee pain: Plan: No changes today, exam is essentially the same. He has not swelling, instability, or decreased range of motion. Seems to be chronic best evaluated by outpatient joint revision specialist. Encouraged use of brace today when he ambulates. Stressed the importance of getting up and out of bed. Continue PT/OT Walker for stability given frequent falls. Pain medication and DVT prophylaxis per primary service. Admission and Anticipated Discharge Date Admission Date: July 27, 2024 Subjective Patient seen in bed today. He denies any new symptoms with the right knee. He has not ambulated as of yet to try out the brace. He removed it to sleep. Physical Exam Physical Exam: CONSTITUTIONAL: Resting comfortably in bed. In no distress. Conversational. CARDIOVASCULAR: Right DP pulse 2+ MUSCULOSKELETAL: Right lower extremity: No deformities. Patella in-line, intact. Knee with no effusion. There is no erythema or warmth, no soft tissue swelling about the knee. Knee active range of motion: 3 to 120 degrees. Performs straight leg raise with no difficulty. No joint instability is appreciated. Strength 5/5 with ankle plantarflexion and dorsiflexion. Able to move all toes. SKIN: [place], warm, dry NEUROLOGIC: No sensory deficits to light touch in right lower extremity Results & Data Vital Signs (Past 12 Hours) Vital Signs Temp Pulse Pulse Resp BP Pulse Ox O2 Del Method 07/29/24 07:46 97.5 F L 69 20 195/93 H 92 Room Air 07/29/24 07:15 Room Air 07/29/24 06:55 69 07/29/24 02:52 97.5 F L 65 18 153/77 H 94 Room Air 07/29/24 00:03 172/83 H 07/28/24 23:46 182/85 H 07/28/24 23:30 227/104 H 07/28/24 22:22 97.7 F 67 18 207/96 H 94 Room Air 07/28/24 22:14 68 (1) Right knee pain Chronicity: chronic Qualified Code(s): M25.561 - Pain in right knee; G89.29 - Other chronic pain
--- NOTE | 2024-07-29 13:15 | Hospitalist Progress Note ---
Date of Service July 29, 2024 Assessment & Plan (1) Fracture, ribs: (2) Fall: (3) DM type 2 (diabetes mellitus, type 2): (4) COPD with emphysema: (5) Chronic constipation: Plan Patient with falls and rib fractures. Pain is getting better controlled Schedule Tylenol 3 times daily Oxycodone short acting as needed for breakthrough pain Continue Lidoderm patch Reviewed therapy notes, recommending skilled rehab Updated case management will pursue possible SNF placement Continue monitor glucose, insulin sliding scale Attempted to contact , no answer Admission and Anticipated Discharge Date Admission Date: July 27, 2024 Subjective Patient reports pain is well-controlled when he is sitting still but pretty sharp pain whenever he moves. Physical Exam Physical Exam: Constitutional: Alert, sitting in chair HEENT: Mucous membranes moist. Lungs: Decreased breath sounds, prolonged expiratory phase, no wheezes CV: S1-S2, regular Abdomen: Soft, nontender, nondistended Extremities: No significant edema Neuro: No focal deficits Psych: Cooperative, normal mood Results & Data Results & Data Vital Signs (Past 12 Hours) Vital Signs Temp Pulse Pulse Resp BP BP Pulse Ox 07/29/24 11:39 36.5 C 69 18 141/76 H 94 07/29/24 10:11 63 114/64 07/29/24 07:46 36.4 C L 69 20 195/93 H 92 07/29/24 07:15 07/29/24 06:55 69 07/29/24 02:52 36.4 C L 65 18 153/77 H 94 O2 Del Method 07/29/24 11:39 Room Air 07/29/24 10:11 07/29/24 07:46 Room Air 07/29/24 07:15 Room Air 07/29/24 06:55 07/29/24 02:52 Room Air Diagnostic Findings Reviewed imaging, laboratory and diagnostic studies. Pertinent findings as below. CBC, BMP stable Glucoses reviewed (1) Fracture, ribs Encounter type: initial encounter Fracture type: closed Laterality: unspecified laterality Qualified Code(s): S22.49XA - Multiple fractures of ribs, unspecified side, initial encounter for closed fracture (2) Fall Encounter type: initial encounter Qualified Code(s): W19.XXXA - Unspecified fall, initial encounter
[2024-07-29] MEDS: ACETAMINOPHEN 500 MG TAB PO SCH (14:10)
[2024-07-29] MEDS: oxyCODONE HCL IR 5 MG TAB (IMMEDIATE RELEASE) PO PRN (16:51)
[2024-07-29] MEDS: LORazepam 1 MG TAB PO PRN (19:38)
[2024-07-29] MEDS: OLANZapine 10 MG/2.1 ML SDV IM PRN (21:17)
--- NOTE | 2024-07-30 12:39 | Hospitalist Progress Note ---
Date of Service July 30, 2024 Assessment & Plan (1) Fracture, ribs: (2) Fall: (3) DM type 2 (diabetes mellitus, type 2): (4) COPD with emphysema: (5) Chronic constipation: Plan Mr. Badillo is a 73-year-old male with history of sick sinus syndrome status post pacemaker placement in August 2023, CAD, CHF, diabetes type 2, hypertension, COPD, pulmonary fibrosis, other problems noted below admitted due to rib fractures 2/2 mechanical fall. Patient evaluated for right knee pain by ortho, who feels patient would be best suited for follow up with a joint revision specialist as OP. A brace was fitted in interim. Plan for adjusting pain regimen and PT/OT eval #Hypertensive urgency iso severe pain this am Managed with home regimen and IV prn continue active analgesia #Status post mechanical fall #Left posterior rib fractures 5th-7th Walks with a cane/walker at home, receives physical therapy at home CT head: No acute injuries CT chest: Acute left posterior rib fractures with #5-7 Pain control with schedule tylenol, lidocaine patch, prn Oxy encouraged Spirometry, ice pack Pacemaker check for completion Monitor mentation on opioids start bowel regimen #Right knee pain Chronic as per patient but has been progressive lately, contributing to gait imbalance Ortho: follow up with joint revision specialist as OP, brace fitted PT/OT #Urinary incontinence #History of BPH Continue usual Flomax and Proscar bladder scan #CAD, CHF Euvolemic Continue usual carvedilol, Lipitor, Imdur, aspirin #Diabetes type 2 Usually on Lantus 55 units, metformin, glipizide a1c 6.7, continue lantus/novolog per protocol bsg running on high side, ill continue to monitor, no adjustment necessary today #Pulmonary fibrosis, COPD On room air, respiratory status stable #GERD Continue pantoprazole DVT prophylaxis Lovenox subcu daily Full code as per patient Disposition Lives with at home PT OT recommending SNF vs acute rehab, referrals pending I spent a total of 45 minutes reviewing notes, outpatient records, labs, medication, coordinating, documenting and providing care for this patient excluding time spent in the performance of separately billed services. Admission and Anticipated Discharge Date Admission Date: July 27, 2024 Supervising Physician Co-Signing Physician Notes Patient was seen and examined at bedside as a follow-up of hypertensive urgency, left posterior rib fracture 5-7 Status post mechanical fall. Patient reports p ain fairly under control, continue with pain medication and bowel regimen. Patient was able to take a deep breath. Encourage incentive spirometer. Continue home blood pressure medication and as needed blood pressure medication. On exam: Patient on room air, no BLE edema. Left chest tender on palpation. Rest of the examination as above. Time spent: 10 minutes. I have seen and examined the patient and have discussed the case with the provider above. I agree with the assessment and plan as stated. Subjective Pt complains of 7/10 pain on his L anterior chest. Pain is worse with deep breathing. Denies f/c/s, sob at rest, n/v/d. Review of Systems Review of Systems: All systems reviewed & are unremarkable except as noted in HPI & below Physical Exam Physical Exam: Gen: WD/WN, NAD, A&O x3, appears in pain HEENT: Normocephalic, atraumatic, conjunctivae moist, sclerae anicteric, mucous membranes moist. Lung: Clear to Auscultation bilaterally with decreased BS at bases due to poor inspiratory effort, no wheezes/rales/rhonchi Heart: Regular rate, regular rhythm, no murmurs, rubs, or gallops Abdomen: Soft, NT, ND +BS x 4 Extremities: No edema Skin: Warm, no rash, negative turgor. Results & Data Results & Data Vital Signs (Past 12 Hours) Vital Signs Temp Pulse Resp BP BP Pulse Ox O2 Del Method 07/30/24 07:38 36.4 C L 63 18 152/84 H 93 Room Air 07/30/24 04:55 36.5 C 72 18 143/79 H 95 Room Air 07/30/24 00:41 36.4 C L 60 18 153/78 H 93 Room Air Medications Administered Current Inpatient Medications Acetaminophen (Acetaminophen 500 Mg Tab) 1,000 mg PO TID [facility] Stop: 08/28/24 13:59 Last Admin: 07/30/24 09:04 Dose: 1,000 mg Albuterol (Albuterol Hfa 8 Gm Inhaler) 2 puffs INH Q6R PRN PRN Reason: SOB/Wheezing,cough Stop: 08/26/24 14:59 Aspirin (Aspirin 81 Mg Ectab) 81 mg PO QAM [facility] Stop: 08/27/24 08:59 Last Admin: 07/30/24 09:01 Dose: 81 mg Atorvastatin Calcium (Atorvastatin 20 Mg Tab) 20 mg PO DAILY [facility] Stop: 08/27/24 08:59 Last Admin: 07/30/24 09:01 Dose: 20 mg Bisacodyl (Bisacodyl 10 Mg Supp) 10 mg NE DAILY PRN PRN Reason: Constipation Stop: 08/28/24 10:01 Carvedilol (Carvedilol 3.125 Mg Tab) 3.125 mg PO BIDM [facility] Stop: 08/26/24 16:59 Last Admin: 07/30/24 09:02 Dose: 3.125 mg Cyanocobalamin (Cyanocobalamin (B-12) 500 Mcg Tablet) 1,000 mcg PO DAILY [facility] Stop: 08/27/24 08:59 Last Admin: 07/30/24 09:01 Dose: 1,000 mcg Dextrose (Dextrose 50% 50 Ml Syringe) 25 - 50 ml IV UD PRN; Protocol PRN Reason: Hypoglycemia Protocol Stop: 08/26/24 13:34 Diclofenac Sodium (Diclofenac Sod 1% Gel 100 Gm Tube) 4 gm EXT Q6 PRN; Protocol PRN Reason: pain Stop: 08/26/24 14:59 Ferrous Sulfate (Ferrous Sulfate 325 Mg Tab) 325 mg PO Q2D [facility] Stop: 08/26/24 15:14 Last Admin: 07/29/24 12:49 Dose: 325 mg Finasteride (Finasteride 5 Mg Tab) 5 mg PO HS [facility] Stop: 08/26/24 20:59 Last Admin: 07/29/24 19:37 Dose: 5 mg Glucagon (Glucagon For Inj 1 Mg Vial) 1 mg SQ UD PRN; Protocol PRN Reason: Hypoglycemia Protocol Stop: 08/26/24 13:34 Glucose (Glucose 40% Gel 15 Gm Tube) 15 - 30 gm PO UD PRN; Protocol PRN Reason: Hypoglycemia Protocol Stop: 08/26/24 13:34 Glucose (Glucose 10 Tab/Tube) 4 - 8 tab PO UD PRN; Protocol PRN Reason: Hypoglycemia Protocol Stop: 08/26/24 13:34 Insulin Aspart (Insulin Aspart Per Unit Charge) 0 units SC ACHS [facility] Stop: 08/26/24 13:59 Last Admin: 07/30/24 09:55 Dose: 11 units Insulin Glargine (Lantus Per Unit Charge) 0 units SQ HS [facility]; Protocol Stop: 08/26/24 20:59 Last Admin: 07/29/24 20:22 Dose: 30 units Isosorbide Mononitrate (Isosorbide [place] Extended Rel 30 Mg Tabcr) 30 mg PO QAM [facility] Stop: 08/27/24 08:59 Last Admin: 07/30/24 09:01 Dose: 30 mg Lidocaine (Lidocaine 5% 1 Patch) 1 patch TD QAM [facility] Stop: 08/26/24 12:46 Last Admin: 07/30/24 09:02 Dose: 1 patch Lorazepam (Lorazepam 1 Mg Tab) 1 mg PO HS PRN PRN Reason: anxiety/insomnia Stop: 08/27/24 20:59 Last Admin: 07/29/24 19:38 Dose: 1 mg Losartan Potassium (Losartan Potassium 25 Mg Tab) 25 mg PO BID [facility] Stop: 08/26/24 20:59 Last Admin: 07/30/24 09:01 Dose: 25 mg Magnesium Oxide (Magnesium Oxide 400 Mg Tab) 400 mg PO AMHS [facility] Stop: 08/26/24 20:59 Last Admin: 07/30/24 09:01 Dose: 400 mg Miscellaneous (Remove Lidoderm Patch) 1 each N/A DAILY@2100 [facility] Stop: 08/26/24 20:59 Last Admin: 07/29/24 19:40 Dose: 1 each Miscellaneous (Carbohydrates For Hypoglycemia ) 15 - 30 gm PO UD PRN PRN Reason: Hypoglycemia Protocol Stop: 08/26/24 13:34 Miscellaneous Information (Pharmacy Glycemic Mgmt Consult) 1 each N/A UD PRN PRN Reason: Consult Stop: 08/26/24 13:34 Nitroglycerin (Nitroglycerin Sl 0.4 Mg/Tab Tab) 0.4 mg SL DAILY PRN PRN Reason: chesst pain Stop: 08/26/24 14:59 Nystatin (Nystatin Powder 15gm Btl) 1 appln EXT BID [facility] Stop: 08/26/24 20:59 Last Admin: 07/30/24 09:02 Dose: 1 appln Olanzapine (Olanzapine 10 Mg/2.1 Ml Sdv) 2.5 mg IM Q4H PRN PRN Reason: Agitation Stop: 08/27/24 23:11 Last Admin: 07/29/24 21:17 Dose: 2.5 mg Oxycodone HCl (Oxycodone Hcl Ir 5 Mg Tab (Immediate Release)) 5 mg PO Q3H PRN PRN Reason: Pain Stop: 08/12/24 13:08 Last Admin: 07/29/24 16:51 Dose: 5 mg Pantoprazole Sodium (Pantoprazole 40 Mg Tab) 40 mg PO DAILY [facility] Stop: 08/27/24 08:59 Last Admin: 07/30/24 09:01 Dose: 40 mg Polyethylene Glycol (Polyethylene (Miralax) 17 Gm Pack) 17 gm PO DAILY [facility] Stop: 08/26/24 14:59 Last Admin: 07/30/24 09:04 Dose: 17 gm Senna/Docusate Sodium (Docusate Sodium/Senna 50/8.6mg Tab) 1 tab PO QAM [facility] Stop: 08/27/24 14:59 Last Admin: 07/30/24 09:04 Dose: 1 tab Sertraline HCl (Sertraline Hcl 50 Mg Tablet) 150 mg PO DAILY [facility] Stop: 08/27/24 08:59 Last Admin: 07/30/24 09:01 Dose: 150 mg Tamsulosin HCl (Tamsulosin Hcl 0.4 Mg Cap) 0.4 mg PO DAILY [facility] Stop: 08/27/24 08:59 Last Admin: 07/30/24 09:01 Dose: 0.4 mg Umeclidinium [place] (Umeclidinium [place] 62.5mcg/Blister 7 Puffs/Inhaler) 1 puffs INH QAM [facility] Stop: 08/27/24 08:59 Last Admin: 07/30/24 09:00 Dose: 1 puffs (1) Fracture, ribs Encounter type: initial encounter Fracture type: closed Laterality: unspecified laterality Qualified Code(s): S22.49XA - Multiple fractures of ribs, unspecified side, initial encounter for closed fracture (2) Fall Encounter type: initial encounter Qualified Code(s): W19.XXXA - Unspecified fall, initial encounter
--- NOTE | 2024-07-30 13:43 | Pharmacy Report ---
Pharmacy Glycemic Short Note 2 - Date of Service July 30, 2024 - Glycemic Short BSG Results (Last 24 hours): 07/29/24 07/29/24 07/30/24 16:53 19:47 08:20 POC Glucose 197 H 260 H 218 H 07/30/24 12:31 POC Glucose 265 H OUTPATIENT ANTIDIABETIC REGIMEN: * glipizide 10 mg daily, metformin 1 gm bid, Lantus 50-55 units HS ASSESSMENT: 07/30 * Patient received 72 units of insulin yesterday (30 units were basal) * BSGs yesterday and today have all been above goal range. CHO ratio was tightened and Lantus scale at HS was increased to 30-50 units depending on BSG 07/27 * 73 year old admitted with dizziness, s/p fall - pharmacy consulted for glycemic management. BSGs >180 this AM, diet ordered. Will trial weight based stress 2 dosing for novolog and have scale for Lantus at HS. PLAN FOR INPATIENT GLYCEMIC CONTROL: * Hold outpatient oral diabetes medications * Basal insulin * Lantus 30-50 units hs * Bolus insulin * NovoLog per scale ACHS or Q6hrs while NPO * Goal Range: Low 110 mg/dL - High 140 mg/dL * Correction Factor: 20 mg/dL/unit * Nutritional / Prandial insulin per carb ratio of 1 unit per 5 grams CHO consumed
[2024-07-30] MEDS: LOSARTAN POTASSIUM 25 MG TAB PO STA (23:26)
[2024-07-31 07:13] LABS: Hemoglobin 14.3 g/dl (14.0-18.0); Mean Corpuscular Hemoglobin 30.8 pg (25.0-34.0); Mean Corpuscular Hgb Conc 33.3 g/dL (32.0-36.0); Mean Corpuscular Volume 92.5 fL (80.0-100.0); Mean Platelet Volume 9.2 fL (9.4-12.4); Platelet Count 191 K/uL (130-400); RDW Coefficient of Variation 15.2 % (11.5-14.5); RDW Standard Deviation 51.9 fL (36.4-46.3); Red Blood Count 4.65 M/uL (4.70-6.10); White Blood Count 10.27 K/ul (4.8-10.8)
[2024-07-31 07:30] LABS: BUN Creatinine Ratio 20.5 (10-20); Calcium 9.5 mg/dl (8.6-10.3); Creatinine Clr Calc Pharmacy 44.8 ml/min; Potassium 4.2 mmol/L (3.5-5.1)
[2024-07-31] MEDS: LOSARTAN POTASSIUM 50 MG TAB PO SCH (08:19)
--- NOTE | 2024-07-31 09:20 | Pharmacy Report ---
Pharmacy Glycemic Short Note 2 - Date of Service July 31, 2024 - Glycemic Short BSG Results (Last 24 hours): 07/30/24 07/30/24 07/30/24 12: 17:01 19:18 Glucose POC Glucose 265 H 209 H 242 H 07/31/24 07/31/24 06:25 08:11 Glucose 193 H POC Glucose 182 H OUTPATIENT ANTIDIABETIC REGIMEN: * glipizide 10 mg daily, metformin 1 gm bid, Lantus 50-55 units HS * A1c = 6.8% ASSESSMENT: 07/31 * Kaden received 88 units of SQ insulin yesterday with persistent hyperglycemia (BSGs 218, 265, 209, 242 mg/dL) * Fasting BSG improving after receiving Lantus 50 units last evening. This is similar to patients home dose. * Post prandial hyperglycemia. Will tighten Novolog CF. Carb ratio already tightened last evening. Expect significant increase in basal insulin will also help to normalize post prandial BSG. 07/30 * Patient received 72 units of insulin yesterday (30 units were basal) * BSGs yesterday and today have all been above goal range. CHO ratio was tightened and Lantus scale at HS was increased to 30-50 units depending on BSG 07/27 * 73 year old admitted with dizziness, s/p fall - pharmacy consulted for glycemic management. BSGs >180 this AM, diet ordered. Will trial weight based stress 2 dosing for novolog and have scale for Lantus at HS. PLAN FOR INPATIENT GLYCEMIC CONTROL: * Hold outpatient oral diabetes medications * Basal insulin * Lantus 40-50 units qHS * Bolus insulin * NovoLog per scale ACHS or Q6hrs while NPO * Goal Range: Low 110 mg/dL - High 140 mg/dL * Correction Factor: 15 mg/dL/unit * Nutritional / Prandial insulin per carb ratio of 1 unit per 5 grams CHO consumed
[2024-07-31] MEDS: bisacodyL 10 MG SUPP PR STA (11:09)
--- NOTE | 2024-07-31 12:27 | Hospitalist Progress Note ---
Date of Service July 31, 2024 Assessment & Plan (1) Fracture, ribs: (2) Fall: (3) DM type 2 (diabetes mellitus, type 2): (4) COPD with emphysema: (5) Chronic constipation: (6) Acute cystitis: Plan Mr. Badillo is a 73-year-old male with history of sick sinus syndrome status post pacemaker placement in August 2023, CAD, CHF, diabetes type 2, hypertension, COPD, pulmonary fibrosis, other problems noted below admitted due to rib fractures 2/2 mechanical fall. Patient evaluated for right knee pain by ortho, who feels patient would be best suited for follow up with a joint revision specialist as OP. A brace was fitted in interim. Plan for adjusting pain regimen and PT/OT eval #Hypertensive urgency iso severe pain Bp continues to be marginally elevated Managed with home regimen of coreg, will hold losartan given DINESH add prn IV Hydralazine continue active analgesia #Status post mechanical fall #Left posterior rib fractures 5th-7th Walks with a cane/walker at home, receives physical therapy at home CT head: No acute injuries CT chest: Acute left posterior rib fractures with #5-7 Pain control with schedule tylenol, lidocaine patch, prn Oxy encouraged Spirometry, ice pack Monitor mentation on opioids No BM yet, continue bowel regimen, will give suppository x 1 today # DINESH baseline cr 1.1-1.2, cr 1.56 today suspect poor intake in setting of pain give gentle IVF 80cc/hr x 24 hr, encourage fluids hold losartan in the interim until renal function resolves #Acute Cystitis urine culture growing > 100k enterococcus faecalis will give IV rocephin x 1 now followed by levaquin 250mg daily for 5 days #Right knee pain Chronic as per patient but has been progressive lately, contributing to gait imbalance Ortho: follow up with joint revision specialist as OP, brace fitted PT/OT #Urinary incontinence #History of BPH Continue usual Flomax and Proscar bladder scan #CAD, CHF Euvolemic Continue usual carvedilol, Lipitor, Imdur, aspirin #Diabetes type 2 Usually on Lantus 55 units, metformin, glipizide a1c 6.7, continue lantus/novolog per protocol bsg running on high side, glycemic pharmacy managing, appreciate their management #Pulmonary fibrosis, COPD On room air, respiratory status stable #GERD Continue pantoprazole DVT prophylaxis Lovenox subcu daily Full code as per patient Disposition Lives with at home PT OT recommending SNF vs acute rehab, referrals pending I spent a total of 51 minutes reviewing notes, outpatient records, labs, medication, coordinating, documenting and providing care for this patient exc luding time spent in the performance of separately billed services. Pt was seen and examined in collaboration with Dr. Lopez, please see addendum Admission and Anticipated Discharge Date Admission Date: July 27, 2024 Supervising Physician Co-Signing Physician Notes Attending addendum: The patient was seen and examined in medical telemetry unit He has been complaining of ongoing pain in the left chest wall due to fracture of the ribs He has weakness but denies any other significant symptoms Was advised to participate in physical therapy On examination No apparent distress at rest Hemodynamically stable Chestclear to auscultate but has tenderness over left lateral chest wall HeartS1-S2, regular Abdomenbenign Extremitiesnegative for any edema He is labs, EKG and imaging studies reviewed Has fracture of the ribs following a fall, UTI and also DINESH likely secondary to dehydration Has been getting intravenous Levaquin for UTI and pain management with oral oxycodone and Tylenol Remains medically stable and awaiting placement Agree with assessment plan as outlined above by Danita Suggs PA-C and take the full responsible of care in the hospital Dr. Jude Lopez Subjective Pt feels his pain is improving. "Rib fractures are no joke." He reports no BM since admission. He states at home suppositories usually work. He denies f/c/s, chest pain, sob, n/v. He denies any dysuria, increased urinary urg Review of Systems Review of Systems: All systems reviewed & are unremarkable except as noted in HPI & below Physical Exam Physical Exam: Gen: WD/WN, NAD, A&O x3, lying in bed, severe pain with rolling in bed HEENT: Normocephalic, atraumatic, conjunctivae moist, sclerae anicteric, mucous membranes moist. Lung: Clear to Auscultation bilaterally with decreased BS at bases due to poor inspiratory effort, no wheezes/rales/rhonchi Heart: Regular rate, regular rhythm, no murmurs, rubs, or gallops Abdomen: Soft, NT, ND +BS x 4 Extremities: No edema Skin: Warm, no rash, negative turgor. Results & Data Results & Data Vital Signs (Past 12 Hours) Vital Signs Temp Pulse Resp BP Pulse Ox O2 Del Method 07/31/24 07:51 36.8 C 60 17 169/92 H 93 Room Air 07/31/24 04:33 36.5 C 72 19 152/79 H 96 Room Air Laboratory Results Short CBC 07/31/24 Range/Units 06:25 WBC 10.27 (4.8-10.8) K/ul Hgb 14.3 (14.0-18.0) g/dl Hct 43.0 (42.0-52.0) % Plt Count 191 (130-400) K/uL BMP 07/31/24 06:25 Sodium 134 L Potassium 4.2 Chloride 100 Carbon Dioxide 24 BUN 32 H Creatinine 1.56 H D Glucose 193 H Calcium 9.5 I have independently reviewed and interpreted patient's cbc, bmp and urine culture Medications Administered Current Inpatient Medications Acetaminophen (Acetaminophen 500 Mg Tab) 1,000 mg PO TID [facility] Stop: 08/28/24 13:59 Last Admin: 07/31/24 08:21 Dose: 1,000 mg Albuterol (Albuterol Hfa 8 Gm Inhaler) 2 puffs INH Q6R PRN PRN Reason: SOB/Wheezing,cough Stop: 08/26/24 14:59 Aspirin (Aspirin 81 Mg Ectab) 81 mg PO QAM [facility] Stop: 08/27/24 08:59 Last Admin: 07/31/24 08:20 Dose: 81 mg Atorvastatin Calcium (Atorvastatin 20 Mg Tab) 20 mg PO DAILY [facility] Stop: 08/27/24 08:59 Last Admin: 07/31/24 08:19 Dose: 20 mg Bisacodyl (Bisacodyl 10 Mg Supp) [address] DAILY PRN PRN Reason: Constipation Stop: 08/28/24 10:01 Carvedilol (Carvedilol 3.125 Mg Tab) 3.125 mg PO BIDM [facility] Stop: 08/26/24 16:59 Last Admin: 07/31/24 08:20 Dose: 3.125 mg Cyanocobalamin (Cyanocobalamin (B-12) 500 Mcg Tablet) 1,000 mcg PO DAILY [facility] Stop: 08/27/24 08:59 Last Admin: 07/31/24 08:19 Dose: 1,000 mcg Dextrose (Dextrose 50% 50 Ml Syringe) 25 - 50 ml IV UD PRN; Protocol PRN Reason: Hypoglycemia Protocol Stop: 08/26/24 13:34 Diclofenac Sodium (Diclofenac Sod 1% Gel 100 Gm Tube) 4 gm EXT Q6 PRN; Protocol PRN Reason: pain Stop: 08/26/24 14:59 Ferrous Sulfate (Ferrous Sulfate 325 Mg Tab) 325 mg PO Q2D [facility] Stop: 08/26/24 15:14 Last Admin: 07/29/24 12:49 Dose: 325 mg Finasteride (Finasteride 5 Mg Tab) 5 mg PO HS [facility] Stop: 08/26/24 20:59 Last Admin: 07/30/24 19:57 Dose: 5 mg Glucagon (Glucagon For Inj 1 Mg Vial) 1 mg SQ UD PRN; Protocol PRN Reason: Hypoglycemia Protocol Stop: 08/26/24 13:34 Glucose (Glucose 40% Gel 15 Gm Tube) 15 - 30 gm PO UD PRN; Protocol PRN Reason: Hypoglycemia Protocol Stop: 08/26/24 13:34 Glucose (Glucose 10 Tab/Tube) 4 - 8 tab PO UD PRN; Protocol PRN Reason: Hypoglycemia Protocol Stop: 08/26/24 13:34 Sodium Chloride (Nss) 1,000 mls @ 80 mls/hr IV .[id number] [facility] Stop: 08/01/24 12:14 Ceftriaxone Sodium (Rocephin) 2,000 mg in 50 mls @ 100 mls/hr IV NOW STA Stop: 07/31/24 12:38 Insulin Aspart (Insulin Aspart Per Unit Charge) 0 units SC ACHS [facility] Stop: 08/26/24 13:59 Last Admin: 07/31/24 08:52 Dose: 6 units Insulin Glargine (Lantus Per Unit Charge) 0 units SQ HS [facility]; Protocol Stop: 08/26/24 20:59 Last Admin: 07/30/24 20:52 Dose: 50 units Isosorbide Mononitrate (Isosorbide [place] Extended Rel 30 Mg Tabcr) 30 mg PO QAM [facility] Stop: 08/27/24 08:59 Last Admin: 07/31/24 08:19 Dose: 30 mg Levofloxacin (Levofloxacin 250 Mg Tablet) 250 mg PO DAILY@1100 [facility]; Protocol Stop: 08/06/24 10:59 Lidocaine (Lidocaine 5% 1 Patch) 1 patch TD QAM [facility] Stop: 08/26/24 12:46 Last Admin: 07/31/24 11:08 Dose: 1 patch Lorazepam (Lorazepam 1 Mg Tab) 1 mg PO HS PRN PRN Reason: anxiety/insomnia Stop: 08/27/24 20:59 Last Admin: 07/30/24 19:56 Dose: 1 mg Losartan Potassium (Losartan Potassium 50 Mg Tab) 50 mg PO BID [facility] Stop: 08/30/24 08:59 Last Admin: 07/31/24 08:19 Dose: 50 mg Magnesium Oxide (Magnesium Oxide 400 Mg Tab) 400 mg PO AMHS [facility] Stop: 08/26/24 20:59 Last Admin: 07/31/24 08:19 Dose: 400 mg Miscellaneous (Remove Lidoderm Patch) 1 each N/A DAILY@2100 [facility] Stop: 08/26/24 20:59 Last Admin: 07/30/24 19:58 Dose: 1 each Miscellaneous (Carbohydrates For Hypoglycemia ) 15 - 30 gm PO UD PRN PRN Reason: Hypoglycemia Protocol Stop: 08/26/24 13:34 Miscellaneous Information (Pharmacy Glycemic Mgmt Consult) 1 each N/A UD PRN PRN Reason: Consult Stop: 08/26/24 13:34 Nitroglycerin (Nitroglycerin Sl 0.4 Mg/Tab Tab) 0.4 mg SL DAILY PRN PRN Reason: chesst pain Stop: 08/26/24 14:59 Nystatin (Nystatin Powder 15gm Btl) 1 appln EXT BID [facility] Stop: 08/26/24 20:59 Last Admin: 07/31/24 08:22 Dose: 1 appln Olanzapine (Olanzapine 10 Mg/2.1 Ml Sdv) 2.5 mg IM Q4H PRN PRN Reason: Agitation Stop: 08/27/24 23:11 Last Admin: 07/29/24 21:17 Dose: 2.5 mg Oxycodone HCl (Oxycodone Hcl Ir 5 Mg Tab (Immediate Release)) 5 mg PO Q3H PRN PRN Reason: Pain Stop: 08/12/24 13:08 Last Admin: 07/31/24 08:46 Dose: 5 mg Pantoprazole Sodium (Pantoprazole 40 Mg Tab) 40 mg PO DAILY [facility] Stop: 08/27/24 08:59 Last Admin: 07/31/24 08:20 Dose: 40 mg Polyethylene Glycol (Polyethylene (Miralax) 17 Gm Pack) 17 gm PO DAILY [facility] Stop: 08/26/24 14:59 Last Admin: 07/31/24 08:21 Dose: 17 gm Senna/Docusate Sodium (Docusate Sodium/Senna 50/8.6mg Tab) 1 tab PO QAM [facility] Stop: 08/27/24 14:59 Last Admin: 07/31/24 08:21 Dose: 1 tab Sertraline HCl (Sertraline Hcl 50 Mg Tablet) 150 mg PO DAILY [facility] Stop: 08/27/24 08:59 Last Admin: 07/31/24 08:20 Dose: 150 mg Tamsulosin HCl (Tamsulosin Hcl 0.4 Mg Cap) 0.4 mg PO DAILY [facility] Stop: 08/27/24 08:59 Last Admin: 07/31/24 08:20 Dose: 0.4 mg Umeclidinium [place] (Umeclidinium [place] 62.5mcg/Blister 7 Puffs/Inhaler) 1 puffs INH QAM [facility] Stop: 08/27/24 08:59 Last Admin: 07/31/24 08:21 Dose: 1 puffs (1) Fracture, ribs Encounter type: initial encounter Fracture type: closed Laterality: unspe cified laterality Qualified Code(s): S22.49XA - Multiple fractures of ribs, unspecified side, initial encounter for closed fracture (2) Fall Encounter type: initial encounter Qualified Code(s): W19.XXXA - Unspecified fall, initial encounter
[2024-07-31] MEDS: SODIUM CHLORIDE 0.9% 1,000 ML IV SCH (12:39)
[2024-07-31] MEDS: cefTRIAXone SODIUM 2,000 MG/50 ML BAG IV STA (13:24)
[2024-08-01 08:47] LABS: Basophils # (auto) 0.06 K/uL (0.00-0.20); Basophils % (auto) 0.6 %; Eosinophils # (auto) 0.35 K/uL (0.00-0.50); Eosinophils % (auto) 3.4 %; Hematocrit (blood only) 41.1 % (42.0-52.0); Hemoglobin 14.1 g/dl (14.0-18.0); Immature Granulocytes # (auto) 0.04 K/uL (0.01-0.20); Immature Granulocytes % (auto) 0.4 %; Lymphocytes # (auto) 1.17 K/uL (1.20-3.40); Lymphocytes % (auto) 11.5 %; Mean Corpuscular Hemoglobin 31.9 pg (25.0-34.0); Mean Corpuscular Hgb Conc 34.3 g/dL (32.0-36.0); Mean Platelet Volume 9.2 fL (9.4-12.4); Monocytes # (auto) 1.19 K/uL (0.11-0.59); Monocytes % (auto) 11.7 %; Neutrophils # (auto) 7.38 K/uL (1.40-6.50); Neutrophils % (auto) 72.4 %; Platelet Count 171 K/uL (130-400); RDW Standard Deviation 51.9 fL (36.4-46.3); Red Blood Count 4.42 M/uL (4.70-6.10); White Blood Count 10.19 K/ul (4.8-10.8)
[2024-08-01 09:11] LABS: BUN Creatinine Ratio 21.3 (10-20); Calcium 8.9 mg/dl (8.6-10.3); Creatinine Clr Calc Pharmacy 42.7 ml/min; Potassium 4.5 mmol/L (3.5-5.1)
[2024-08-01] MEDS: levoFLOXacin 250 MG TABLET PO SCH (11:13)
--- NOTE | 2024-08-01 13:37 | Hospitalist Progress Note ---
Date of Service August 01, 2024 Assessment & Plan (1) Fracture, ribs: (2) Fall: (3) DM type 2 (diabetes mellitus, type 2): (4) COPD with emphysema: (5) Chronic constipation: (6) Acute cystitis: Plan Mr. Badillo is a 73-year-old male with history of sick sinus syndrome status post pacemaker placement in August 2023, CAD, CHF, diabetes type 2, hypertension, COPD, pulmonary fibrosis, other problems noted below admitted due to rib fractures 2/2 mechanical fall. Patient evaluated for right knee pain by ortho, who feels patient would be best suited for follow up with a joint revision specialist as OP. A brace was fitted in interim. Plan for adjusting pain regimen and PT/OT eval #Status post mechanical fall #Left posterior rib fractures 5th-7th Walks with a cane/walker at home, receives physical therapy at home CT head: No acute injuries CT chest: Acute left posterior rib fractures with #5-7 Pain control with schedule tylenol, lidocaine patch, prn Oxy encouraged Spirometry, ice pack Monitor mentation on opioids No BM yet, continue bowel regimen, will give suppository x 1 today Pain is reasonably controlled with current medications Will continue with PT and OT and awaiting placement #Hypertensive urgency iso severe pain Bp continues to be marginally elevated Managed with home regimen of coreg, will hold losartan given DINESH add prn IV Hydralazine continue active analgesia Blood pressure is reasonably controlled History of mood disorder with anxiety Has been getting aggressive at times and requiring IM Zyprexa as needed Will continue with Zoloft and occasional Ativan # DINESH baseline cr 1.1-1.2, cr 1.56 today suspect poor intake in setting of pain give gentle IVF 80cc/hr x 24 hr, encourage fluids hold losartan in the interim until renal function resolves Creatinine seems to be a little worse at 1.64 from 1.56 yesterday Advised to drink more fluid and losartan is on hold already Will increase carvedilol to 6.25 mg twice daily #Acute Cystitis urine culture growing > 100k enterococcus faecalis will give IV rocephin x 1 now followed by levaquin 250mg daily for 5 days Continue levofloxacin for now #Right knee pain Chronic as per patient but has been progressive lately, contributing to gait imbalance Ortho: follow up with joint revision specialist as OP, brace fitted PT/OT #Urinary incontinence #History of BPH Continue usual Flomax and Proscar bladder scan #CAD, CHF Euvolemic Continue usual carvedilol, Lipitor, Imdur, aspirin #Diabetes type 2 Usually on Lantus 55 units, metformin, glipizide a1c 6.7, continue lantus/novolog per protocol bsg running on high side, glycemic pharmacy managing, appreciate their management #Pulmonary fibrosis, COPD On room air, respiratory status stable #GERD Continue pantoprazole DVT prophylaxis Lovenox subcu daily Full code as per patient Disposition Lives with at home PT OT recommending SNF vs acute rehab, referrals pending Admission and Anticipated Discharge Date Admission Date: July 27, 2024 Subjective 08/01/2024 The patient was seen and examined in medical telemetry unit He was noted to be agitated last night and required IM Zyprexa 2.5 mg Wants to go home today but he needs to be placed He was convinced to stay until we get the placement Review of Systems Review of Systems: Unobtainable due to cognitive status Physical Exam Physical Exam: Sitting on a chair without any acute distress Constitutional: well developed, well nourished and + ill appearing Eyes: PERRL, conjunctivae normal, anicteric sclerae ENMT: external ear and nose normal, oropharynx normal Neck: trachea midline, no thyromegaly Respiratory: no respiratory distress Auscultation: lungs clear to auscultation bilaterally Cardiovascular: Rate/Rhythm: regular rate and regular rhythm; not tachycardic Heart Sounds: normal S1 and normal S2; no murmur Extremities: no edema Gastrointestinal (Abdomen): Inspection/Auscultation: normal bowel sounds; abdomen not distended Percussion/Palpation: abdomen soft; abdomen nontender Musculoskeletal: No acute arthritis involving any of the joint Neurologic: normal touch/pain/proprioception and moves all extremities; no focal motor deficits Lymphatic: no cervical or axillary lymphadenopathy Results & Data Results & Data Vital Signs (Past 12 Hours) Vital Signs Temp Pulse Resp BP Pulse Ox O2 Del Method 08/01/24 08:07 36.7 C 64 16 153/78 H 94 Room Air Laboratory Results Short CBC 08/01/24 Range/Units 07:42 WBC 10.19 (4.8-10.8) K/ul Hgb 14.1 (14.0-18.0) g/dl Hct 41.1 L (42.0-52.0) % Plt Count 171 (130-400) K/uL BMP 08/01/24 07:42 Sodium 137 Potassium 4.5 Chloride 105 Carbon Dioxide 24 BUN 35 H Creatinine 1.64 H Glucose 159 H Calcium 8.9 Medications Administered Current Inpatient Medications Acetaminophen (Acetaminophen 500 Mg Tab) 1,000 mg PO TID [facility] Stop: 08/28/24 13:59 Last Admin: 08/01/24 13:05 Dose: 1,000 mg Albuterol (Albuterol Hfa 8 Gm Inhaler) 2 puffs INH Q6R PRN PRN Reason: SOB/Wheezing,cough Stop: 08/26/24 14:59 Aspirin (Aspirin 81 Mg Ectab) 81 mg PO QAM [facility] Stop: 08/27/24 08:59 Last Admin: 08/01/24 08:32 Dose: 81 mg Atorvastatin Calcium (Atorvastatin 20 Mg Tab) 20 mg PO DAILY [facility] Stop: 08/27/24 08:59 Last Admin: 08/01/24 08:32 Dose: 20 mg Bisacodyl (Bisacodyl 10 Mg Supp) 10 mg SD DAILY PRN PRN Reason: Constipation Stop: 08/28/24 10:01 Carvedilol (Carvedilol 3.125 Mg Tab) 3.125 mg PO BIDM [facility] Stop: 08/26/24 16:59 Last Admin: 08/01/24 08:31 Dose: 3.125 mg Cyanocobalamin (Cyanocobalamin (B-12) 500 Mcg Tablet) 1,000 mcg PO DAILY [facility] Stop: 08/27/24 08:59 Last Admin: 08/01/24 08:33 Dose: 1,000 mcg Dextrose (Dextrose 50% 50 Ml Syringe) 25 - 50 ml IV UD PRN; Protocol PRN Reason: Hypoglycemia Protocol Stop: 08/26/24 13:34 Diclofenac Sodium (Diclofenac Sod 1% Gel 100 Gm Tube) 4 gm EXT Q6 PRN; Protocol PRN Reason: pain Stop: 08/26/24 14:59 Ferrous Sulfate (Ferrous Sulfate 325 Mg Tab) 325 mg PO Q2D [facility] Stop: 08/26/24 15:14 Last Admin: 07/31/24 13:56 Dose: 325 mg Finasteride (Finasteride 5 Mg Tab) 5 mg PO HS [facility] Stop: 08/26/24 20:59 Last Admin: 07/31/24 19:50 Dose: 5 mg Glucagon (Glucagon For Inj 1 Mg Vial) 1 mg SQ UD PRN; Protocol PRN Reason: Hypoglycemia Protocol Stop: 08/26/24 13:34 Glucose (Glucose 40% Gel 15 Gm Tube) 15 - 30 gm PO UD PRN; Protocol PRN Reason: Hypoglycemia Protocol Stop: 08/26/24 13:34 Glucose (Glucose 10 Tab/Tube) 4 - 8 tab PO UD PRN; Protocol PRN Reason: Hypoglycemia Protocol Stop: 08/26/24 13:34 Hydralazine HCl (Hydralazine Hcl 20 Mg/Ml Vial) 5 mg IV Q4H PRN PRN Reason: SBP > 180 Stop: 08/30/24 12:24 Insulin Aspart (Insulin Aspart Per Unit Charge) 0 units SC [facility] Stop: 08/26/24 13:59 Last Admin: 08/01/24 13:04 Dose: 13 units Insulin Glargine (Lantus Per Unit Charge) 0 units SQ HS [facility]; Protocol Stop: 08/26/24 20:59 Last Admin: 07/31/24 20:49 Dose: 50 units Isosorbide Mononitrate (Isosorbide [place] Extended Rel 30 Mg Tabcr) 30 mg PO [facility] Stop: 08/27/24 08:59 Last Admin: 08/01/24 08:32 Dose: 30 mg Levofloxacin (Levofloxacin 250 Mg Tablet) 250 mg PO DAILY@1100 [facility]; Protocol Stop: 08/06/24 10:59 Last Admin: 08/01/24 11:13 Dose: 250 mg Lidocaine (Lidocaine 5% 1 Patch) 1 patch TD [facility] Stop: 08/26/24 12:46 Last Admin: 08/01/24 08:33 Dose: 1 patch Lorazepam (Lorazepam 1 Mg Tab) 1 mg PO HS PRN PRN Reason: anxiety/insomnia Stop: 08/27/24 20:59 Last Admin: 07/31/24 19:50 Dose: 1 mg Losartan Potassium (Losartan Potassium 50 Mg Tab) 50 mg PO BID [facility] Stop: 08/30/24 08:59 Last Admin: 07/31/24 08:19 Dose: 50 mg Magnesium Oxide (Magnesium Oxide 400 Mg Tab) 400 mg PO [facility] Stop: 08/26/24 20:59 Last Admin: 08/01/24 08:32 Dose: 400 mg Miscellaneous (Remove Lidoderm Patch) 1 each N/A DAILY@2100 [facility] Stop: 08/26/24 20:59 Last Admin: 07/31/24 19:51 Dose: 1 each Miscellaneous (Carbohydrates For Hypoglycemia ) 15 - 30 gm PO UD PRN PRN Reason: Hypoglycemia Protocol Stop: 08/26/24 13:34 Miscellaneous Information (Pharmacy Glycemic Mgmt Consult) 1 each N/A UD PRN PRN Reason: Consult Stop: 08/26/24 13:34 Nitroglycerin (Nitroglycerin Sl 0.4 Mg/Tab Tab) 0.4 mg SL DAILY PRN PRN Reason: chesst pain Stop: 08/26/24 14:59 Nystatin (Nystatin Powder 15gm Btl) 1 appln EXT BID [facility] Stop: 08/26/24 20:59 Last Admin: 08/01/24 08:30 Dose: 1 appln Olanzapine (Olanzapine 10 Mg/2.1 Ml Sdv) 2.5 mg IM Q4H PRN PRN Reason: Agitation Stop: 08/27/24 23:11 Last Admin: 08/01/24 13:05 Dose: 2.5 mg Oxycodone HCl (Oxycodone Hcl Ir 5 Mg Tab (Immediate Release)) 5 mg PO Q3H PRN PRN Reason: Pain Stop: 08/12/24 13:08 Last Admin: 08/01/24 08:37 Dose: 5 mg Pantoprazole Sodium (Pantoprazole 40 Mg Tab) 40 mg PO DAILY [facility] Stop: 08/27/24 08:59 Last Admin: 08/01/24 08:32 Dose: 40 mg Polyethylene Glycol (Polyethylene (Miralax) 17 Gm Pack) 17 gm PO DAILY [facility] Stop: 08/26/24 14:59 Last Admin: 08/01/24 08:37 Dose: 17 gm Senna/Docusate Sodium (Docusate Sodium/Senna 50/8.6mg Tab) 1 tab PO QAM [facility] Stop: 08/27/24 14:59 Last Admin: 08/01/24 08:37 Dose: 1 tab Sertraline HCl (Sertraline Hcl 50 Mg Tablet) 150 mg PO DAILY [facility] Stop: 08/27/24 08:59 Last Admin: 08/01/24 08:31 Dose: 150 mg Tamsulosin HCl (Tamsulosin Hcl 0.4 Mg Cap) 0.4 mg PO DAILY [facility] Stop: 08/27/24 08:59 Last Admin: 08/01/24 08:32 Dose: 0.4 mg Umeclidinium [place] (Umeclidinium [place] 62.5mcg/Blister 7 Puffs/Inhaler) 1 puffs INH QAM [facility] Stop: 08/27/24 08:59 Last Admin: 08/01/24 08:37 Dose: 1 puffs (1) Fracture, ribs Encounter type: initial encounter Fracture type: closed Laterality: unspecified laterality Qualified Code(s): S22.49XA - Multiple fractures of ribs, unspecified side, initial encounter for closed fracture (2) Fall Encounter type: initial encounter Qualified Code(s): W19.XXXA - Unspecified fall, initial encounter
[2024-08-01] MEDS: carvediloL 6.25 MG TAB PO SCH (18:24)
[2024-08-01] MEDS: DICLOFENAC SOD 1% GEL 100 GM TUBE EXT PRN (21:29)
--- NOTE | 2024-08-02 08:24 | Hospitalist Progress Note ---
Date of Service August 02, 2024 Assessment & Plan (1) Fall: (2) Fracture, ribs: (3) Mood disorder: (4) CAD (coronary artery disease): (5) DM type 2 (diabetes mellitus, type 2): (6) Coronary artery disease, occlusive: (7) HTN (hypertension): (8) COPD with emphysema: Plan Mr. Badillo is a 73-year-old male with history of sick sinus syndrome status post pacemaker placement in August 2023, CAD, CHF, diabetes type 2, hypertension, COPD, pulmonary fibrosis, other problems noted below admitted due to rib fractures 2/2 mechanical fall. Patient evaluated for right knee pain by ortho, who feels patient would be best suited for follow up with a joint revision specialist as OP. A brace was fitted in interim. Plan for adjusting pain regimen and PT/OT eval #Status post mechanical fall #Left posterior rib fractures 5th-7th Walks with a cane/walker at home, receives physical therapy at home CT head: No acute injuries CT chest: Acute left posterior rib fractures with #5-7 Pain control with schedule tylenol, lidocaine patch, PRN Oxy encouraged Spirometry, ice pack Monitor mentation on opioids Has been constipated - given suppository yesterday, reports bowel movement Pain is reasonably controlled with current medications Will continue with PT/OT and awaiting placement - denied rehab, awaiting [facility] and no bed at [facility] until Tuesday #Hypertensive urgency -> improved iso severe pain Bp continues to be marginally elevated Managed with home regimen of coreg, will hold losartan given DINESH Increased Coreg to BID Added prn IV Hydralazine Continue active analgesia History of mood disorder with anxiety Has been getting aggressive at times and requiring IM Zyprexa as needed Will continue with Zoloft and occasional Ativan # DINESH Baseline Cr 1.1-1.2, Cr was 1.56 - > 1.64 -> 1.79 Losartan is on hold already NSS x 1 L D/c levofloxacin, transitioned to Macrobid Repeat BMP in AM #Acute Cystitis urine culture growing > 100k enterococcus faecalis Transitioned to Macrobid BID, EOT 08/05 #Right knee pain Chronic as per patient but has been progressive lately, contributing to gait imbalance Ortho: follow up with joint revision specialist as OP, brace fitted PT/OT #Urinary incontinence #History of BPH Continue usual Flomax and Proscar Bladder scan PRN #CAD, CHF Euvolemic Continue usual carvedilol, Lipitor, Imdur, aspirin #Diabetes type 2 Usually on Lantus 55 units, metformin, glipizide a1c 6.7, continue lantus/novolog per protocol bsg running on high side, glycemic pharmacy managing, appreciate their management #Pulmonary fibrosis, COPD On room air, respiratory status stable #GERD Continue pantoprazole DVT prophylaxis Lovenox subcu daily Full code as per patient Disposition Lives with at home PT OT recommending SNF vs acute rehab - insurance denied rehab at [facility], awaiting [facility] vs [facility] per CM but unlikely beds available until early next week I spent a total of 50 minutes coordinating, documenting, and providing care for this patient excluding time spent in the performance of separately billed services. Admission and Anticipated Discharge Date Admission Date: July 27, 2024 Supervising Physician Co-Signing Physician Notes Attending addendum: The patient was seen and examined in medical telemetry unit in presence of the He has been feeling much better today with decreasing chest pain but he still requires assistance with ambulation Denies any fever and chills He wants to go home On examination Lying in bed without any distress Afebrile and remains hemodynamically stable Minimal tenderness on palpation of the left lateral chest His labs, medications and imaging studies reviewed Noted to have increasing BUN and creatinine contributed by dehydration and use of Levaquin Will give 1 L of normal saline infusion and was advised to drink more fluid With recommendations to oral Macrobid Agree with assessment plan as outlined above by Eileen Urrutia PA-C and take full responsibility of the care in the hospital Dr Jude Lopez Subjective Patient seen and examined in 280 bed 1. Sitting up at side of bed, which feels better for his rib pain. States he had a bowel movement yesterday and feels they will have another one soon. No new events overnight. No chest pain, shortness of breath. Review of Systems Review of Systems: At least ten systems reviewed and negative except as noted in the HPI. Physical Exam Physical Exam: Gen: WD/WN, NAD, A&O x3, sitting up in bed HEENT: Normocephalic, atraumatic, conjunctivae moist, sclerae anicteric, mucous membranes moist Lung: Clear to Auscultation bilaterally with decreased BS at bases due to poor inspiratory effort, no wheezes/rales/rhonchi Heart: Regular rate, regular rhythm Chest: left lateral rib pain Abdomen: Soft, NT, ND +BS x 4 Extremities: No edema Skin: Warm, no rash Results & Data Results & Data Vital Signs (Past 12 Hours) Vital Signs Temp Pulse Pulse Resp BP BP Pulse Ox 08/02/24 07:40 36.8 C 59 L 18 153/83 H 94 08/01/24 23:21 08/01/24 22:26 36.4 C L 61 18 188/85 H 95 O2 Del Method 08/02/24 07:40 Room Air 08/01/24 23:21 Room Air 08/01/24 22:26 Room Air Diagnostic Findings Chest X-Ray 07/27/24 10:21 XR chest 1V portable HISTORY: 73 years-old Male Trauma acute chest trauma COMPARISON: 08/24/2022 TECHNIQUE: AP view the chest FINDINGS: Cardiac silhouette is enlarged. Dual lead left subclavian pacer. Pulmonary vascular congestion with chronic interstitial coarsening. No pneumothorax or large pleural effusion. Degenerative changes of the shoulders and spine. IMPRESSION: 1. Cardiomegaly with pulmonary vascular congestion. 2. Chronic interstitial lung disease. ACT 112: Negative or not required by law. The above report was generated using voice recognition software. It may contain grammatical, syntax or spelling errors. Electronically signed by: Jacob Cleveland M.D. 07/27/2024 11:10 AM Abdomen/Pelvis CT 07/27/24 10:22 CT abd pelvis IV con only CLINICAL HISTORY: Trauma TECHNIQUE: Helical axial images of the abdomen and pelvis were obtained and displayed. Automated dose lowering techniques and/or adjustment according to patient size were utilized for this exam. This exam was performed with intravenous contrast. COMPARISON: Comparison is made to CT abdomen pelvis 06/05/2021 FINDINGS: Lower chest: For findings above the diaphragm, please see CT chest performed same day. Liver: Hepatic steatosis is noted. Gallbladder and biliary tree: No calcified gallstones. Normal caliber wall. No intra- or extrahepatic biliary ductal dilation. Pancreas: Unremarkable, no focal lesions. Spleen: Unremarkable. Adrenals: Unremarkable. Kidneys and ureters: Left renal cyst is seen. Bladder: Diffuse homogeneous wall thickening is seen. Reproductive organs: Prostatomegaly is seen. Bowel: Diverticulosis is seen without diverticulitis. The appendix is normal. Lymph nodes Retroperitoneal: Unremarkable. Pelvic: Unremarkable. Mesenteric: Unremarkable. Peritoneum: Normal. Vessels: Atherosclerotic calcifications are seen. Abdominal wall: Postsurgical changes are seen in the bilateral inguinal canals. Bones: Degenerative changes in the visualized spine. Subacute healing left anterior rib fractures are seen at the ninth and eighth ribs. IMPRESSION: 1. No acute abnormalities are seen. Subacute left rib fractures. Please see CT chest performed same day for rib fractures. 2. Hepatic steatosis. 3. Diverticulosis without diverticulitis. ACT 112: Negative or not required by law. Electronically signed by: Luther Marcial M.D. 07/27/2024 11:[address] 07/27/24 10:22 CT cervical spine wo con CT DOSE: 3497.5 mGy.cm CLINICAL HISTORY: 73 years-old Male with Trauma. Acute chest and neck pain status post fall COMPARISON: MRI cervical spine 10/21/2023, MRI cervical spine 10/21/2023. TECHNIQUE: Multiple axial CT images of the cervical spine were obtained without contrast. A dose lowering technique was utilized adhering to the principles of ALARA. FINDINGS: Straightening of the normal cervical lordosis with mild to moderate degenerative changes redemonstrated. No acute fracture, subluxation suspicious bone lesions are identified. Suboptimal evaluation of the central canal and neur al foramen by CT technique. Postoperative changes of suboccipital craniectomy redemonstrated. The cervical soft tissues appear unremarkable. Atherosclerosis of the carotid bulbs. Cerebellar encephalomalacia again noted. Head CT dictated separately. The visualized lung apices appear clear. IMPRESSION: No acute cervical spine fracture or subluxation. ACT 112: Negative or not required by law. The above report was generated using voice recognition software. It may contain grammatical, syntax or spelling errors. Electronically signed by: Jacob Cleveland M.D. 07/27/2024 11:[address] 07/27/24 10:22 CT chest diagnostic w con CLINICAL HISTORY: Trauma TECHNIQUE: Multidetector row helical CT of the chest was performed with intravenous contrast. Coronal and sagittal reformations were obtained. Automated dose lowering techniques and/or adjustment according to patient size were utilized for this exam. Comparison: Comparison is made to CT chest August 06, 2022 FINDINGS: Lungs and pleura: Peripheral interstitial thickening is seen with some paraseptal emphysema. Heart and pericardium: Aortic valvular calcifications are seen. Vessels: Moderate atherosclerotic changes in the aorta and coronary arteries. Mediastinum and sid: Subcentimeter lymph nodes are seen. Chest wall and lower neck: Small thyroid nodules are noted which do not require follow-up by ACR criteria. Abdomen: Unremarkable. Bones: There are acute fractures of the posterolateral fifth, sixth and seventh ribs. Possible nondisplaced fourth rib fracture as well. Degenerative changes in the spine. Congenital foramen of the sternum is noted. IMPRESSION: 1. Acute fractures of the posterior lateral fifth, sixth, and seventh ribs. No pneumothorax is seen. 2. Interstitial lung disease, similar to prior exam. ACT 112: Negative or not required by law. Electronically signed by: Luther Marcial M.D. 07/27/2024 11:[address] 07/27/24 10:22 CT head/brain wo con CLINICAL HISTORY: trauma Technique: Contiguous axial CT images of the head were acquired from the base of the skull to the vertex without intravenous contrast administration. Images were viewed in brain, subdural and bone windows. Automated dose lowering techniques and/or adjustment according to patient size were utilized for this exam. Comparison: Comparison is made to the head on 623 Findings: Areas of decreased attenuation are present in the periventricular and subcortical white matter bilaterally consistent with small vessel ischemic disease. Generalized cerebral atrophy with commensurate enlargement of the ventricles, sulci, and cisterns is also present. There is no acute intracranial hemorrhage or evidence of acute territorial infarction. No shift of the midline structures, mass effect, or extra-axial abnormalities are shown. Atherosclerotic calcifications are present in the intracranial segments of the internal carotid arteries. Imaged portions of the paranasal sinuses and mastoid air cells are clear. The orbits appear normal. Old posterior calvarial defect is seen. Impression: No acute intracranial hemorrhage, skull fractures, or scalp swelling. ACT 112: Negative or not required by law. Electronically signed by: Luther Marcial M.D. 07/27/2024 11:45 AM Knee X-Ray 07/27/24 13:29 XR knee RT 1 or 2V routine CLINICAL HISTORY: severe pain, s/p fall TECHNIQUE: 2 views of the right knee were obtained. Comparison: Comparison is made to knee radiographs 12/30/2017 FINDINGS: There is no evidence of an acute fracture. Patient is status post total knee arthroplasty. No perihardware lucency or hardware fracture is seen. No joint effusion is seen. Vascular calcifications are noted. IMPRESSION: No evidence of acute osseous injury. ACT 112: Negative or not required by law. Electronically signed by: Luther Marcial M.D. 07/27/2024 2:27 PM (1) Fall Encounter type: initial encounter Qualified Code(s): W19.XXXA - Unspecified fall, initial encounter (2) Fracture, ribs Encounter type: initial encounter Fracture type: closed Laterality: unspecified laterality Qualified Code(s): S22.49XA - Multiple fractures of ribs, unspecified side, initial encounter for closed fracture
[2024-08-02 14:47] LABS: BUN Creatinine Ratio 21.2 (10-20); Calcium 8.9 mg/dl (8.6-10.3); Creatinine Clr Calc Pharmacy 39.1 ml/min; Potassium 5.1 mmol/L (3.5-5.1)
[2024-08-02] MEDS: SODIUM CHLORIDE 0.9% 1,000 ML IV SCH (18:22)
[2024-08-02] MEDS: NITROFURANTOIN MONOHYDRATE 100 MG CAP PO SCH (21:43)
[2024-08-02] MEDS: hydrALAZINE HCL 20 MG/ML VIAL IV PRN (23:01)
--- NOTE | 2024-08-02 23:36 | Communication Note ---
Date of Service: August 02, 2024 Made aware by RN of uncontrolled blood pressure SBP 150s to 200s the last 24 hours. Heart rate 60s to 80s Patient asymptomatic as per RN. AP Hypertensive urgency Add amlodipine to regimen Keep patient in med/tele given uncontrolled BP, cancel MedSurg transfer order from 07/29/24
[2024-08-02] MEDS: hydrALAZINE HCL 20 MG/ML VIAL IV ONE (23:51)
[2024-08-02] MEDS: amLODIPine BESYLATE 5 MG TAB PO SCH (23:51)
[2024-08-03] MEDS: hydrALAZINE HCL 20 MG/ML VIAL IV STA (07:26)
[2024-08-03] MEDS: INSULIN ASPART PER UNIT CHARGE SC SCH ×2 (08:34→13:15)
[2024-08-03 08:56] LABS: Calcium 9.4 mg/dl (8.6-10.3); Potassium 4.6 mmol/L (3.5-5.1)
[2024-08-03 09:01] LABS: BUN Creatinine Ratio 21.4 (10-20)
[2024-08-03] MEDS: hydrALAZINE HCL 25 MG TAB PO SCH (09:49)
--- NOTE | 2024-08-03 09:56 | Pharmacy Report ---
Pharmacy Glycemic Short Note 2 - Date of Service August 03, 2024 - Glycemic Short BSG Results (Last 24 hours): 08/02/24 08/02/24 08/02/24 12:07 14:04 17:12 Glucose 226 H POC Glucose 256 H 161 H 08/02/24 08/03/24 08/03/24 20:41 06:05 07:18 Glucose POC Glucose 137 H 121 H 146 H 08/03/24 08:02 Glucose 148 H POC Glucose OUTPATIENT ANTIDIABETIC REGIMEN: * glipizide 10 mg daily, metformin 1 gm bid, Lantus 50-55 units HS * A1c = 6.8% ASSESSMENT: 08/03 * Patient received a total of 84 units of insulin yesterday (40 units were basal and 44 units were bolus) * Fasting BSG was 146mg/dL after receiving 40 units of Lantus last evening. Will continue scale of 40-50 units Lantus at HS depending on BSG * Lunch BSGs still remain elevated in comparison to the rest of the day, so bolus insulin parameters were tightened at breakfast time only. 07/31 * Kaden received 88 units of SQ insulin yesterday with persistent hyperglycemia (BSGs 218, 265, 209, 242 mg/dL) * Fasting BSG improving after receiving Lantus 50 units last evening. This is similar to patients home dose. * Post prandial hyperglycemia. Will tighten Novolog CF. Carb ratio already tightened last evening. Expect significant increase in basal insulin will also help to normalize post prandial BSG. 07/30 * Patient received 72 units of insulin yesterday (30 units were basal) * BSGs yesterday and today have all been above goal range. CHO ratio was tightened and Lantus scale at HS was increased to 30-50 units depending on BSG 07/27 * 73 year old admitted with dizziness, s/p fall - pharmacy consulted for glycemic management. BSGs >180 this AM, diet ordered. Will trial weight based stress 2 dosing for novolog and have scale for Lantus at HS. PLAN FOR INPATIENT GLYCEMIC CONTROL: * Hold outpatient oral diabetes medications * Basal insulin * Lantus scale qHS (40 units for BSG < 140, 45 units for BSG 140-180, 50 units for BSG > 180) * Bolus insulin * NovoLog per scale ACHS or Q6hrs while NPO * Goal Range: Low 110 mg/dL - High 140 mg/dL -Breakfast: * Correction Factor: 10 mg/dL/unit * Nutritional / Prandial insulin per carb ratio of 1 unit per 3 grams CHO consumed -Lunch, dinner, HS * Correction Factor: 12 mg/dL/unit * Nutritional / Prandial insulin per carb ratio of 1 unit per 4 grams CHO consumed
--- NOTE | 2024-08-03 11:34 | Hospitalist Progress Note ---
Date of Service August 03, 2024 Assessment & Plan (1) Fall: (2) Fracture, ribs: (3) Mood disorder: (4) CAD (coronary artery disease): (5) DM type 2 (diabetes mellitus, type 2): (6) Coronary artery disease, occlusive: (7) HTN (hypertension): (8) COPD with emphysema: Plan Mr. Badillo is a 73-year-old male with history of sick sinus syndrome status post pacemaker placement in August 2023, CAD, CHF, diabetes type 2, hypertension, COPD, pulmonary fibrosis, other problems noted below admitted due to rib fractures 2/2 mechanical fall. Patient evaluated for right knee pain by ortho, who feels patient would be best suited for follow up with a joint revision specialist as OP. A brace was fitted in interim. Plan for adjusting pain regimen and PT/OT eval Status post mechanical fall Left posterior rib fractures 5th-7th Walks with a cane/walker at home, receives physical therapy at home CT head: No acute injuries CT chest: Acute left posterior rib fractures with #5-7 Pain control with schedule tylenol, lidocaine patch, PRN Oxy Encouraged Spirometry, ice pack Monitor mentation on opioids Has been constipated - given suppository yesterday, reports bowel movement Pain is reasonably controlled with current medications Will continue with PT/OT and awaiting placement - denied [facility], awaiting [facility] and no bed at [facility] until 08/07 Constipation 2/2 opiates, lack of movement as above Aggressive bowel regimen with enema this afternoon Labile Hypertension iso severe pain Labile hypertension in setting of pain, DINESH Increased Coreg to BID, 2.5 amlodipine HS Losartan has been held Added prn IV Hydralazine, which he required x 2 overnight Attempted to transition to PO hydralazine and had asymptomatic hypotension 94/53. BP 139/69 this afternoon Cr back to baseline today after fluids. Continue Coreg BID, amlodipine HS, PRN Hydralazine Continue active analgesia History of mood disorder with anxiety -> improved Has been getting aggressive at times and requiring IM Zyprexa as needed Will continue with Zoloft and occasional Ativan DINESH -> improving Baseline Cr 1.1-1.2, Cr was 1.56 - > 1.64 -> 1.79 -> 1.40 Losartan is on hold Cr improved with 1L NSS, transition from levofloxacin, transitioned to Macrobid Repeat BMP in AM Acute Cystitis Urine culture growing > 100k enterococcus faecalis Transitioned to Macrobid BID, EOT 1/ Right knee pain Chronic as per patient but has been progressive lately, contributing to gait imbalance Ortho: follow up with joint revision specialist as OP, brace fitted PT/OT Urinary incontinence History of BPH Continue usual Flomax and Proscar Bladder scan PRN CAD, CHF Euvolemic Continue usual carvedilol, Lipitor, Imdur, aspirin Diabetes type 2 Usually on Lantus 55 units, metformin, glipizide a1c 6.7, continue lantus/novolog per protocol Bsg running on high side, glycemic pharmacy managing, appreciate their management Pulmonary fibrosis, COPD On room air, respiratory status stable GERD Continue pantoprazole DVT prophylaxis Lovenox subcu daily Full code as per patient Disposition Lives with at home PT OT recommending SNF vs acute rehab - insurance denied rehab at [facility], awaiting [facility] vs [facility] per CM but unlikely beds available until early next week I spent a total of 40 minutes coordinating, documenting, and providing care for this patient excluding time spent in the performance of separately billed services. Admission and Anticipated Discharge Date Admission Date: July 27, 2024 Supervising Physician Co-Signing Physician Notes Attending addendum: The patient was seen and examined in medical telemetry unit He has been feeling much better just but remains pleasantly confused On examination Lying in bed without any apparent distress show Hemodynamically stable Other system examination unremarkable His labs, medications reviewed Noted to have very high blood pressure with current medicine it has been controlled Pain is controlled now Pleasantly confused Awaiting placement Acute assessment plan as outlined above by Eileen Urrutia PA-C take the full responsibility of care in the hospital Dr Jude Lopez Subjective Patient seen and examined in 280 bed 1. Sitting in bedside chair, which feels better for his rib pain. No new events overnight. No chest pain, shortness of breath. Awaiting placement. Developed elevated BP overnight 227/104 requiring IV hydralazine and was transferred back to [facility]. BP normalized today. Review of Systems Review of Systems: At least ten systems reviewed and negative except as noted in the HPI. Physical Exam Physical Exam: Gen: WD/WN, NAD, A&O x3, sitting up in bedside chair HEENT: Normocephalic, atraumatic, conjunctivae moist, sclerae anicteric, mucous membranes moist Lung: Clear to Auscultation bilaterally with decreased BS at bases due to poor inspiratory effort, no wheezes/rales/rhonchi Heart: Regular rate, regular rhythm Chest: left lateral rib pain Abdomen: Soft, NT, ND +BS x 4 : + Condom cath Extremities: No edema Skin: Warm, no rash Results & Data Results & Data Vital Signs (Past 12 Hours) Vital Signs Temp Pulse Pulse Pulse Resp BP BP 08/03/24 11:26 36.4 C L 59 L 20 94/53 L 08/03/24 10:34 62 08/03/24 09:23 08/03/24 09:20 08/03/24 09:18 36.3 C L 64 18 167/77 H 08/03/24 07:44 62 16 173/80 H 08/03/24 07:23 62 16 184/91 H 08/03/24 06:33 36.8 C 80 18 221/88 H 08/03/24 00:35 69 166/81 H Pulse Ox O2 Del Method O2 Del Method 08/03/24 11:26 95 Room Air 08/03/24 10:34 08/03/24 09:23 Room Air 08/03/24 09:20 Room Air 08/03/24 09:18 97 Room Air 08/03/24 07:44 94 Room Air 08/03/24 07:23 95 Room Air 08/03/24 06:33 93 Room Air 08/03/24 00:35 Laboratory Results BMP 08/03/24 08:02 Sodium 135 L Potassium 4.6 Chloride 106 Carbon Dioxide 21 BUN 30 H Creatinine 1.40 D Glucose 148 H Calcium 9.4 Diagnostic Findings Chest X-Ray 07/27/24 10:21 XR chest 1V portable HISTORY: 73 years-old Male Trauma acute chest trauma COMPARISON: 08/24/2022 TECHNIQUE: AP view the chest FINDINGS: Cardiac silhouette is enlarged. Dual lead left subclavian pacer. Pulmonary vascular congestion with chronic interstitial coarsening. No pneumothorax or large pleural effusion. Degenerative changes of the shoulders and spine. IMPRESSION: 1. Cardiomegaly with pulmonary vascular congestion. 2. Chronic interstitial lung disease. ACT 112: Negative or not required by law. The above report was generated using voice recognition software. It may contain grammatical, syntax or spelling errors. Electronically signed by: Jacob Cleveland M.D. 07/27/2024 11:10 AM Abdomen/Pelvis CT 07/27/24 10:22 CT abd pelvis IV con only CLINICAL HISTORY: Trauma TECHNIQUE: Helical axial images of the abdomen and pelvis were obtained and displayed. Automated dose lowering techniques and/or adjustment according to patient size were utilized for this exam. This exam was performed with intravenous contrast. COMPARISON: Comparison is made to CT abdomen pelvis 06/05/2021 FINDINGS: Lower chest: For findings above the diaphragm, please see CT chest performed same day. Liver: Hepatic steatosis is noted. Gallbladder and biliary tree: No calcified gallstones. Normal caliber wall. No intra- or extrahepatic biliary ductal dilation. Pancreas: Unremarkable, no focal lesions. Spleen: Unremarkable. Adrenals: Unremarkable. Kidneys and ureters: Left renal cyst is seen. Bladder: Diffuse homogeneous wall thickening is seen. Reproductive organs: Prostatomegaly is seen. Bowel: Diverticulosis is seen without diverticulitis. The appendix is normal. Lymph nodes Retroperitoneal: Unremarkable. Pelvic: Unremarkable. Mesenteric: Unremarkable. Peritoneum: Normal. Vessels: Atherosclerotic calcifications are seen. Abdominal wall: Postsurgical changes are seen in the bilateral inguinal canals. Bones: Degenerative changes in the visualized spine. Subacute healing left anterior rib fractures are seen at the ninth and eighth ribs. IMPRESSION: 1. No acute abnormalities are seen. Subacute left rib fractures. Please see CT chest performed same day for rib fractures. 2. Hepatic steatosis. 3. Diverticulosis without diverticulitis. ACT 112: Negative or not required by law. Electronically signed by: Luther Marcial M.D. 07/27/2024 11:[address] 07/27/24 10:22 CT cervical spine wo con CT DOSE: 3497.5 mGy.cm CLINICAL HISTORY: 73 years-old Male with Trauma. Acute chest and neck pain status post fall COMPARISON: MRI cervical spine 10/21/2023, MRI cervical spine 10/21/2023. TECHNIQUE: Multiple axial CT images of the cervical spine were obtained without contrast. A dose lowering technique was utilized adhering to the principles of ALARA. FINDINGS: Straightening of the normal cervical lordosis with mild to moderate degenerative changes redemonstrated. No acute fracture, subluxation suspicious bone lesions are identified. Suboptimal evaluation of the central canal and neural foramen by CT technique. Postoperative changes of suboccipital craniectomy redemonstrated. The cervical soft tissues appear unremarkable. Atherosclerosis of the carotid bulbs. Cerebellar encephalomalacia again noted. Head CT dictated separately. The visualized lung apices appear clear. IMPRESSION: No acute cervical spine fracture or subluxation. ACT 112: Negative or not required by law. The above report was generated using voice recognition software. It may contain grammatical, syntax or spelling errors. Electronically signed by: Jacob Cleveland M.D. 07/27/2024 11:[address] 07/27/24 10:22 CT chest diagnostic w con CLINICAL HISTORY: Trauma TECHNIQUE: Multidetector row helical CT of the chest was performed with intravenous contrast. Coronal and sagittal reformations were obtained. Automated dose lowering techniques and/or adjustment according to patient size were utilized for this exam. Comparison: Comparison is made to CT chest August 06, 2022 FINDINGS: Lungs and pleura: Peripheral interstitial thickening is seen with some paraseptal emphysema. Heart and pericardium: Aortic valvular calcifications are seen. Vessels: Moderate atherosclerotic changes in the aorta and coronary arteries. Mediastinum and sid: Subcentimeter lymph nodes are seen. Chest wall and lower neck: Small thyroid nodules are noted which do not require follow-up by ACR criteria. Abdomen: Unremarkable. Bones: There are acute fractures of the posterolateral fifth, sixth and seventh ribs. Possible nondisplaced fourth rib fracture as well. Degenerative changes in the spine. Congenital foramen of the sternum is noted. IMPRESSION: 1. Acute fractures of the posterior lateral fifth, sixth, and seventh ribs. No pneumothorax is seen. 2. Interstitial lung disease, similar to prior exam. ACT 112: Negative or not required by law. Electronically signed by: Luther Marcial M.D. 07/27/2024 11:[address] 07/27/24 10:22 CT head/brain wo con CLINICAL HISTORY: trauma Technique: Contiguous axial CT images of the head were acquired from the base of the skull to the vertex without intravenous contrast administration. Images were viewed in brain, subdural and bone windows. Automated dose lowering techniques and/or adjustment according to patient size were utilized for this exam. Comparison: Comparison is made to the head on 623 Findings: Areas of decreased attenuation are present in the periventricular and subcortical white matter bilaterally consistent with small vessel ischemic disease. Generalized cerebral atrophy with commensurate enlargement of the ventricles, sulci, and cisterns is also present. There is no acute intracranial hemorrhage or evidence of acute territorial infarction. No shift of the midline structures, mass effect, or extra-axial abnormalities are shown. Atherosclerotic calcifications are present in the intracranial segments of the internal carotid arteries. Imaged portions of the paranasal sinuses and mastoid air cells are clear. The orbits appear normal. Old posterior calvarial defect is seen. Impression: No acute intracranial hemorrhage, skull fractures, or scalp swelling. ACT 112: Negative or not required by law. Electronically signed by: Luther Marcial M.D. 07/27/2024 11:45 AM Knee X-Ray 07/27/24 13:29 XR knee RT 1 or 2V routine CLINICAL HISTORY: severe pain, s/p fall TECHNIQUE: 2 views of the right knee were obtained. Comparison: Comparison is made to knee radiographs 12/30/2017 FINDINGS: There is no evidence of an acute fracture. Patient is status post total knee arthroplasty. No perihardware lucency or hardware fracture is seen. No joint effusion is seen. Vascular calcifications are noted. IMPRESSION: No evidence of acute osseous injury. ACT 112: Negative or not required by law. Electronically signed by: Luther Marcial M.D. 07/27/2024 2:27 PM (1) Fall Encounter type: initial encounter Qualified Code(s): W19.XXXA - Unspecified fall, initial encounter (2) Fracture, ribs Encounter type: initial encounter Fracture type: closed Laterality: unspecified laterality Qualified Code(s): S22.49XA - Multiple fractures of ribs, unspecified side, initial encounter for closed fracture
[2024-08-03] MEDS: bisacodyL 10 MG SUPP PR PRN (13:15)
[2024-08-03] MEDS ORDERED: SOD PHOSPHATE/SOD BIPHOSPHATE ENEMA 132 ML BTL PR PRN (16:40)
[2024-08-03] MEDS: SOD PHOSPHATE/SOD BIPHOSPHATE ENEMA 132 ML BTL PR STA (17:01)
[2024-08-04 06:58] LABS: BUN Creatinine Ratio 21.3 (10-20); Calcium 9.2 mg/dl (8.6-10.3); Creatinine Clr Calc Pharmacy 49.8 ml/min; Potassium 4.4 mmol/L (3.5-5.1)
--- NOTE | 2024-08-04 07:22 | Hospitalist Progress Note ---
Date of Service August 04, 2024 Assessment & Plan (1) Fall: (2) Fracture, ribs: (3) Mood disorder: (4) CAD (coronary artery disease): (5) DM type 2 (diabetes mellitus, type 2): (6) Coronary artery disease, occlusive: (7) HTN (hypertension): (8) COPD with emphysema: Plan Mr. Badillo is a 73-year-old male with history of sick sinus syndrome status post pacemaker placement in August 2023, CAD, CHF, diabetes type 2, hypertension, COPD, pulmonary fibrosis, other problems noted below admitted due to rib fractures 2/2 mechanical fall. Patient evaluated for right knee pain by ortho, who feels patient would be best suited for follow up with a joint revision specialist as OP. A brace was fitted in interim. Plan for adjusting pain regimen and PT/OT eval Status post mechanical fall Left posterior rib fractures 5th-7th Walks with a cane/walker at home, receives physical therapy at home CT head: No acute injuries CT chest: Acute left posterior rib fractures with #5-7 Pain control with schedule tylenol, lidocaine patch, PRN Oxy Encouraged Spirometry, ice pack Monitor mentation on opioids Has been constipated - given suppository yesterday, reports bowel movement Pain is reasonably controlled with current medications Will continue with PT/OT and awaiting placement - denied [facility], awaiting [facility] and no bed at [facility] until 08/07 working with PT but has refused to see them yesterday 1/3 Constipation 2/2 opiates, lack of movement as above Aggressive bowel regimen with enema this afternoon; soft BM reported 1/3 overnight Ax4 for bowel sounds; abdomen large ( baseline) Labile Hypertension iso severe pain Labile hypertension in setting of pain, DINESH Increased Coreg to BID, 2.5 amlodipine HS Losartan has been held PRN IV Hydralazine, which he required x 1 dose overnight 1/4 Attempted to transition to PO hydralazine and had asymptomatic hypotension 94/53. BP 139/69 this afternoon Cr back to baseline today after fluids. Continue Coreg BID, amlodipine HS, PRN Hydralazine Continue active analgesia; reports that Lidoderm patch is effective. Has utilized 1 dose of oxycodone in past 24 hours Tylenol as needed DINESH -> improving Baseline Cr 1.1-1.2, Cr was 1.56 - > 1.64 -> 1.79 -> 1.40 Losartan is on hold Cr improved with 1L NSS, transition from levofloxacin, transitioned to Macrobid end date 08/05 Repeat BMP in AM Acute Cystitis Urine culture growing > 100k enterococcus faecalis Transitioned to Macrobid BID, EOT 1/5 Right knee pain Chronic as per patient but has been progressive lately, contributing to gait imbalance Ortho: follow up with joint revision specialist as OP, brace fitted PT/OT History of mood disorder with anxiety -> improved Has been getting aggressive at times and requiring IM Zyprexa as needed Will continue with Zoloft and occasional Ativan Urinary incontinence History of BPH Continue usual Flomax and Proscar Bladder scan PRN CAD, CHF Euvolemic Continue usual carvedilol, Lipitor, Imdur, aspirin Diabetes type 2 Usually on Lantus 55 units, metformin, glipizide a1c 6.7, continue lantus/novolog per protocol Bsg running on high side, glycemic pharmacy managing, appreciate their management Pulmonary fibrosis, COPD On room air, respiratory status stable GERD Continue pantoprazole DVT prophylaxis Lovenox subcu daily Full code as per patient Disposition Lives with at home PT OT recommending SNF vs acute rehab - insurance denied rehab at [facility], awaiting [facility] vs [facility] per CM but unlikely beds available until early next week earliest possibility for placement at [facility] is 08/07 per case management I spent a total of 52 minutes coordinating, documenting, and providing care for this patient excluding time spent in the performance of separately billed services. Admission and Anticipated Discharge Date Admission Date: July 27, 2024 Supervising Physician Co-Signing Physician Notes Attending addendum: The patient was seen and examined in medical telemetry unit He has been feeling much better and denies any chest pain or any other significant symptoms Noted to have very high blood pressure this morning but has been maintaining since then On examination No apparent distress at rest Hemodynamically stable Other system examination is unremarkable His labs, medications noted Kidney function is stable and he is strongly advised to drink more fluid Remains pleasantly confused from the history of dementia Awaiting placement Agree with assessment plan as outlined above by Gabi ADRIAN and take full responsibility of the care in the Hospital Dr Jude Lopez Subjective Patient seen and examined in 280 bed 1. Patient lying in his hospital bed sleeping. Patient is arousable to verbal stimuli. No new events overnight. Patient denies chest pain, dizziness, visual or auditory changes, shortness of breath. Remains sinus rhythm 60s to 70s overnight P telemetry Nursing reports BM overnight. see A/P for further details. Review of Systems Review of Systems: Neuro: (-) Falls, trauma, slurred speech HEENT: (-) BAUTISTA, dizziness, dysphagia, visual or auditory changes CV: (-) CP, palpitations, swelling Resp: (-) SOB GI: (-) appetite changes, N/V/D, bowel changes : (-) urinary changes Skin: (-) rashes Psych: (-) anxiety, depression Physical Exam Physical Exam: Neuro: AAOx3; however a poor historian related to his hospital stay and details regarding his medical ailments., PERRLA, no aphagia, memory changes, CNII-XII grossly intact HEENT: head normocephalic, moist mucus membranes CV: S1/S2, (-) M/G/R, (-) edema, cap refill < 3 seconds Resp: Lungs CTA in all aguilar. On RA GI: Abdomen Large, soft/NT/ND, Ax4 bowel sounds, (-) CVA tenderness Musculoskeletal: 5/5 B/L UE strength, 5/5 B/L LE strength. Skin: (-) rashes , (-) erythema. Psych: euthymic mood Results & Data Results & Data Vital Signs (Past 12 Hours) Vital Signs Temp Pulse Pulse Resp BP BP Pulse Ox 08/04/24 04:04 36.5 C 63 20 142/70 H 94 08/04/24 00:00 36.5 C 67 20 205/85 H 95 08/04/24 00:00 64 08/03/24 20:00 08/03/24 19:56 36.4 C L 88 20 167/69 H 94 O2 Del Method 08/04/24 04:04 Room Air 08/04/24 00:00 Room Air 08/04/24 00:00 08/03/24 20:00 Room Air 08/03/24 19:56 Room Air Laboratory Results BMP 08/03/24 08/04/24 08:02 06:05 Sodium 135 L 134 L Potassium 4.6 4.4 Chloride 106 105 Carbon Dioxide 21 22 BUN 30 H 30 H Creatinine 1.40 D 1.41 H Glucose 148 H 126 H Calcium 9.4 9.2 (1) Fall Encounter type: initial encounter Qualified Code(s): W19.XXXA - Unspecified fall, initial encounter (2) Fracture, ribs Encounter type: initial encounter Fracture type: closed Laterality: unspecified laterality Qualified Code(s): S22.49XA - Multiple fractures of ribs, unspecified side, initial encounter for closed fracture
[2024-08-04] MEDS: INSULIN ASPART PER UNIT CHARGE SC SCH (09:58)
[2024-08-04] MEDS: LORazepam 0.5 MG TAB PO PRN (20:14)
--- NOTE | 2024-08-05 07:15 | Hospitalist Progress Note ---
Date of Service August 05, 2024 Assessment & Plan (1) Fall: (2) Fracture, ribs: (3) Mood disorder: (4) CAD (coronary artery disease): (5) DM type 2 (diabetes mellitus, type 2): (6) Coronary artery disease, occlusive: (7) HTN (hypertension): (8) COPD with emphysema: Plan Mr. Badillo is a 73-year-old male with history of sick sinus syndrome status post pacemaker placement in August 2023, CAD, CHF, diabetes type 2, hypertension, COPD, pulmonary fibrosis, other problems noted below admitted due to rib fractures 2/2 mechanical fall. Patient evaluated for right knee pain by ortho, who feels patient would be best suited for follow up with a joint revision specialist as OP. A brace was fitted in interim. Plan for adjusting pain regimen and PT/OT eval Status post mechanical fall Left posterior rib fractures 5th-7th Walks with a cane/walker at home, receives physical therapy at home CT head: No acute injuries CT chest: Acute left posterior rib fractures with #5-7 Pain control with schedule tylenol, lidocaine patch, PRN Oxy Encouraged Spirometry, ice pack Pain is reasonably controlled with current medications; reports that Lidoderm patch is effective. Tylenol TID; DC'd Oxycodone on 08/05 Will continue with PT/OT and awaiting placement - denied [facility], awaiting [facility] and no bed at [facility] until 08/07 working with PT but has refused to see them since 08/03 Constipation 2/2 opiates, lack of movement as above Aggressive bowel regimen with enema this afternoon; soft BM reported 1/3 overnight Ax4 for bowel sounds; abdomen large ( baseline) Labile Hypertension iso severe pain Labile hypertension in setting of pain, DINESH Increased Coreg to BID, 2.5 amlodipine HS Losartan has been held PRN IV Hydralazine, which he has not required in over 24 hours. Attempted to transition to PO hydralazine and had asymptomatic hypotension 94/53. BP 139/69 this afternoon Cr back to baseline today after fluids. Continue Coreg BID, amlodipine HS, PRN Hydralazine Continue active analgesia; reports that Lidoderm patch is effective. Tylenol TID; DC'd Oxycodone on 08/05 DINESH -> improving Baseline Cr 1.1-1.2, Cr was 1.56 - > 1.64 -> 1.79 -> 1.40 Losartan is on hold Cr improved with 1L NSS, transition from levofloxacin, transitioned to Macrobid end date 08/05 Repeat BMP in AM Acute Cystitis Urine culture growing > 100k enterococcus faecalis Transitioned to Macrobid BID, EOT 1 Right knee pain Chronic as per patient but has been progressive lately, contributing to gait imbalance Ortho: follow up with joint revision specialist as OP, brace fitted PT/OT History of mood disorder with anxiety -> improved Has been getting aggressive at times and requiring IM Zyprexa as needed Will continue with Zoloft and occasional Ativan Urinary incontinence History of BPH Continue usual Flomax and Proscar Bladder scan PRN CAD, CHF Euvolemic Continue usual carvedilol, Lipitor, Imdur, aspirin Diabetes type 2 Usually on Lantus 55 units, metformin, glipizide a1c 6.7, continue lantus/novolog per protocol Bsg running on high side, glycemic pharmacy managing, appreciate their management Pulmonary fibrosis, COPD On room air, respiratory status stable GERD Continue pantoprazole DVT prophylaxis Lovenox subcu daily Full code as per patient Disposition Lives with at home PT OT recommending SNF vs acute rehab - insurance denied rehab at [facility], awaiting [facility] vs [facility] per CM but unlikely beds available until early next week earliest possibility for placement at [facility] is 08/07 per case management I spent a total of 52 minutes coordinating, documenting, and providing care for this patient excluding time spent in the performance of separately billed services. Admission and Anticipated Discharge Date Admission Date: July 27, 2024 Supervising Physician Co-Signing Physician Notes 08/05/2024 Patient was seen and examined in medical telemetry unit He has been stable without any acute distress Remains pleasantly confused On examination Lying in bed without any acute distress Remains hemodynamically stable with blood pressure is maintaining at 143/76 All other systemic examinations are unremarkable His labs and medications reviewed He has been getting physical therapy and will need to have more physical therapy in a facility Awaiting placement Agree with assessment plan as outlined above by KAYLAH Mcmillan and take the responsibility of care in the hospital Dr Jude Lopez Subjective Patient seen and examined in 280 -1 Patient lying in his hospital bed sleeping. Patient is arousable to verbal stimuli. No new events overnight. Patient denies chest pain, dizziness, visual or auditory changes, shortness of breath. Remains sinus rhythm 60s to 70s overnight per telemetry see A/P for further details. Review of Systems Review of Systems: Neuro: (-) Falls, trauma, slurred speech HEENT: (-) BAUTISTA, dizziness, dysphagia, visual or auditory changes CV: (-) CP, palpitations, swelling Resp: (-) SOB GI: (-) appetite changes, N/V/D, bowel changes : (-) urinary changes Skin: (-) rashes Psych: (-) anxiety, depression poor historian and not reliable for ROS Physical Exam Physical Exam: Neuro: AAOx3; however a poor historian related to his hospital stay and details regarding his medical ailments., PERRLA, no aphagia, memory changes, CNII-XII grossly intact HEENT: head normocephalic, moist mucus membranes CV: S1/S2, (-) M/G/R, (-) edema, cap refill < 3 seconds Resp: Lungs CTA in all aguilar. On RA GI: Abdomen Large, soft/NT/ND, Ax4 bowel sounds, (-) CVA tenderness Musculoskeletal: 5/5 B/L UE strength, 5/5 B/L LE strength. Skin: (-) rashes , (-) erythema. Psych: euthymic mood Results & Data Results & Data Vital Signs (Past 12 Hours) Vital Signs Temp Pulse Pulse Resp BP Pulse Ox O2 Del Method 08/05/24 07:04 58 L 08/05/24 04:14 36.9 C 59 L 20 157/80 H 93 Room Air 08/04/24 23:42 36.8 C 66 20 178/81 H 95 Room Air 08/04/24 22:01 Room Air 08/04/24 21:46 68 08/04/24 19:46 36.9 C 67 20 166/83 H 93 Room Air Laboratory Results BMP 08/05/24 07:27 Sodium 134 L Potassium 4.5 Chloride 104 Carbon Dioxide 23 BUN 28 H Creatinine 1.40 Glucose 145 H Calcium 9.5 (1) Fall Encounter type: initial encounter Qualified Code(s): W19.XXXA - Unspecified fall, initial encounter (2) Fracture, ribs Encounter type: initial encounter Fracture type: closed Laterality: unspecified laterality Qualified Code(s): S22.49XA - Multiple fractures of ribs, unspecified side, initial encounter for closed fracture
[2024-08-05 07:59] LABS: Calcium 9.5 mg/dl (8.6-10.3); Creatinine Clr Calc Pharmacy 50.4 ml/min; Potassium 4.5 mmol/L (3.5-5.1)
--- NOTE | 2024-08-05 13:45 | Pharmacy Report ---
Pharmacy Glycemic Short Note 2 - Date of Service August 05, 2024 - Glycemic Short BSG Results (Last 24 hours): 08/04/24 08/04/24 08/05/24 16:52 20:26 07:27 Glucose 145 H POC Glucose 127 H 113 H 08/05/24 08/05/24 07:56 12:01 Glucose POC Glucose 139 H 173 H OUTPATIENT ANTIDIABETIC REGIMEN: * glipizide 10 mg daily, metformin 1 gm bid, Lantus 50-55 units HS * A1c = 6.8% ASSESSMENT: 08/05: * Kaden received 70 units of insulin yesterday, 40 basal + 30 bolus. BSGs were: [phone] mg/dL. * No change to basal scale. Continues to have hyperglycemia at lunchtime only so will continue with tighter bolus coverage for breakfast only. * Remains on Macrobid for UTI and tolerating T2DM diet. 08/03 * Patient received a total of 84 units of insulin yesterday (40 units were basal and 44 units were bolus) * Fasting BSG was 146mg/dL after receiving 40 units of Lantus last evening. Will continue scale of 40-50 units Lantus at HS depending on BSG * Lunch BSGs still remain elevated in comparison to the rest of the day, so bolus insulin parameters were tightened at breakfast time only. 07/31 * Kaden received 88 units of SQ insulin yesterday with persistent hyperglycemia (BSGs 218, 265, 209, 242 mg/dL) * Fasting BSG improving after receiving Lantus 50 units last evening. This is similar to patients home dose. * Post prandial hyperglycemia. Will tighten Novolog CF. Carb ratio already tightened last evening. Expect significant increase in basal insulin will also help to normalize post prandial BSG. 07/30 * Patient received 72 units of insulin yesterday (30 units were basal) * BSGs yesterday and today have all been above goal range. CHO ratio was tightened and Lantus scale at HS was increased to 30-50 units depending on BSG 07/27 * 73 year old admitted with dizziness, s/p fall - pharmacy consulted for glycemic management. BSGs >180 this AM, diet ordered. Will trial weight based stress 2 dosing for novolog and have scale for Lantus at HS. PLAN FOR INPATIENT GLYCEMIC CONTROL: * Hold outpatient oral diabetes medications * Basal insulin * Lantus scale qHS (40 units for BSG < 140, 45 units for BSG 140-180, 50 units for BSG > 180) * Bolus insulin * NovoLog per scale ACHS or Q6hrs while NPO * Goal Range: Low 110 mg/dL - High 140 mg/dL -Breakfast: * Correction Factor: 10 mg/dL/unit * Nutritional / Prandial insulin per carb ratio of 1 unit per 3 grams CHO consumed -Lunch, dinner, HS * Correction Factor: 12 mg/dL/unit * Nutritional / Prandial insulin per carb ratio of 1 unit per 4 grams CHO consumed
[2024-08-06 06:32] LABS: Hematocrit (blood only) 40.5 % (42.0-52.0); Hemoglobin 13.9 g/dl (14.0-18.0); Mean Corpuscular Hemoglobin 31.7 pg (25.0-34.0); Mean Corpuscular Hgb Conc 34.3 g/dL (32.0-36.0); Mean Corpuscular Volume 92.5 fL (80.0-100.0); Mean Platelet Volume 8.6 fL (9.4-12.4); Platelet Count 200 K/uL (130-400); RDW Coefficient of Variation 14.4 % (11.5-14.5); Red Blood Count 4.38 M/uL (4.70-6.10)
[2024-08-06 06:46] LABS: BUN Creatinine Ratio 20.3 (10-20); Calcium 9.6 mg/dl (8.6-10.3); Creatinine Clr Calc Pharmacy 50.2 ml/min; Potassium 4.4 mmol/L (3.5-5.1)
--- NOTE | 2024-08-06 11:17 | Hospitalist Progress Note ---
Date of Service August 06, 2024 Assessment & Plan (1) Fall: (2) Fracture, ribs: (3) Mood disorder: (4) CAD (coronary artery disease): (5) DM type 2 (diabetes mellitus, type 2): (6) Coronary artery disease, occlusive: (7) HTN (hypertension): (8) COPD with emphysema: Plan Mr. Badillo is a 73-year-old male with history of sick sinus syndrome status post pacemaker placement in August 2023, CAD, CHF, diabetes type 2, hypertension, COPD, pulmonary fibrosis, other problems noted below admitted due to rib fractures 2/2 mechanical fall. Patient evaluated for right knee pain by ortho, who feels patient would be best suited for follow up with a joint revision specialist as OP. A brace was fitted in interim. Plan for adjusting pain regimen and PT/OT eval Status post mechanical fall Left posterior rib fractures 5th-7th Walks with a cane/walker at home, receives physical therapy at home CT head: No acute injuries CT chest: Acute left posterior rib fractures with #5-7 Encouraged Spirometry, ice pack Pain is reasonably controlled with current medications; reports that Lidoderm patch is effective. Tylenol TID; DC'd Oxycodone on 08/05 Will continue with PT/OT and awaiting placement - denied [facility], awaiting [facility] and no bed at [facility] [place] until 08/07 working with PT but has refused to see them since 08/03 Constipation 2/2 opiates, lack of movement as above Aggressive bowel regimen with enema this afternoon; soft BM reported / overnight Ax4 for bowel sounds; abdomen large ( baseline) Labile Hypertension iso severe pain Labile hypertension in setting of pain, DINESH Increased Coreg to BID, 2.5 amlodipine HS Resume Losartan PRN IV Hydralazine, which he has not required in over 24 hours. Attempted to transition to PO hydralazine and had asymptomatic hypotension 94/53. BP 139/69 this afternoon Cr back to baseline today after fluids. Continue Coreg BID, amlodipine HS, PRN Hydralazine Continue active analgesia DINESH -> improving Baseline Cr 1.1-1.2, Cr was 1.56 - > 1.64 -> 1.79 -> 1.40 Cr 1.38 today resume losartan Cr improved with 1L NSS, transition from levofloxacin, transitioned to Macrobid end date 08/05 Acute Cystitis Urine culture growing > 100k enterococcus faecalis Transitioned to Macrobid BID, EOT 08/05 Right knee pain Chronic as per patient but has been progressive lately, contributing to gait imbalance Ortho: follow up with joint revision specialist as OP, brace fitted PT/OT History of mood disorder with anxiety -> improved Has been getting aggressive at times and requiring IM Zyprexa as needed Will continue with Zoloft and occasional Ativan Urinary incontinence History of BPH Continue usual Flomax and Proscar Bladder scan PRN CAD, CHF Euvolemic Continue usual carvedilol, Lipitor, Imdur, aspirin Diabetes type 2 Usually on Lantus 55 units, metformin, glipizide a1c 6.7, continue lantus/novolog per protocol Bsg running on high side, glycemic pharmacy managing, appreciate their management Pulmonary fibrosis, COPD On room air, respiratory status stable GERD Continue pantoprazole DVT prophylaxis Lovenox subcu daily Full code as per patient Disposition Lives with at home PT OT recommending SNF vs acute rehab - insurance denied rehab at [facility], awaiting [facility] vs [facility] per CM but unlikely beds available until early next week earliest possibility for placement at [facility] is 08/07 per case management I spent a total of 46 minutes coordinating, documenting, and providing care for this patient excluding time spent in the performance of separately billed services. Admission and Anticipated Discharge Date Admission Date: July 27, 2024 Supervising Physician Co-Signing Physician Notes Attending addendum: The patient was seen and examined in medical telemetry unit He has been stable without any significant pain or any other distress He has been eating and drinking well and awaiting placement On examination Lying in bed without any acute distress Remains hemodynamically stable with unremarkable system examination His labs and medications were reviewed Remains medically stable to fall and fracture of the ribs and also ambulatory dysfunction Awaiting placement Agree with assessment plan as outlined above by Naila Suggs PA-C and take the full responsibility of care in the Hospital DR Jude parsons Subjective Patient seen and examined in 280 -1 He reports continued rib pain and feels it is staying the same. He denies f/c/s, chest pain, sob, n/v/d. He had 2 small BM the past two days. He is awaiting placement to rehab/SNF. He offers no acute concerns. Review of Systems Review of Systems: All systems reviewed & are unremarkable except as noted in HPI & below Physical Exam Physical Exam: Gen: WD/WN, NAD, A&O x3, sitting up at bedside. HEENT: Normocephalic, atraumatic, conjunctivae moist, sclerae anicteric, mucous membranes moist. Lung: Clear to Auscultation bilaterally with decreased BS at bases due to poor inspiratory effort, no wheezes/rales/rhonchi Heart: Regular rate, regular rhythm, no murmurs, rubs, or gallops Abdomen: Soft, NT, ND +BS x 4 Extremities: No edema Skin: Warm, no rash, negative turgor. Results & Data Results & Data Vital Signs (Past 12 Hours) Vital Signs Temp Pulse Pulse Resp BP Pulse Ox O2 Del Method 08/06/24 08:00 Room Air 08/06/24 07:17 36.6 C 62 16 165/81 H 97 Room Air 08/06/24 07:00 64 08/06/24 02:53 36.8 C 59 L 18 172/89 H 96 Room Air Laboratory Results I have independently reviewed and interpreted patient's admitting labs including CBC, BMP. Short CBC 08/06/24 Range/Units 06:10 WBC 8.00 (4.8-10.8) K/ul Hgb 13.9 L (14.0-18.0) g/dl Hct 40.5 L (42.0-52.0) % Plt Count 200 (130-400) K/uL BMP 08/06/24 06:10 Sodium 134 L Potassium 4.4 Chloride 104 Carbon Dioxide 22 BUN 28 H Creatinine 1.38 Glucose 138 H Calcium 9.6 Medications Administered Current Inpatient Medications Acetaminophen (Acetaminophen 500 Mg Tab) 1,000 mg PO TID [facility] Stop: 08/28/24 13:59 Last Admin: 08/06/24 09:06 Dose: 1,000 mg Albuterol (Albuterol Hfa 8 Gm Inhaler) 2 puffs INH Q6R PRN PRN Reason: SOB/Wheezing,cough Stop: 08/26/24 14:59 Amlodipine Besylate (Amlodipine Besylate 5 Mg Tab) 2.5 mg PO [facility] Stop: 09/01/24 23:34 Last Admin: 08/05/24 20:21 Dose: 2.5 mg Aspirin (Aspirin 81 Mg Ectab) [facility] Stop: 08/27/24 08:59 Last Admin: 08/06/24 09:07 Dose: 81 mg Atorvastatin Calcium (Atorvastatin 20 Mg Tab) 20 mg PO DAILY [facility] Stop: 08/27/24 08:59 Last Admin: 08/06/24 09:07 Dose: 20 mg Bisacodyl (Bisacodyl 10 Mg Supp) 10 mg [place] DAILY PRN PRN Reason: Constipation Stop: 08/28/24 10:01 Last Admin: 08/03/24 13:15 Dose: 10 mg Carvedilol (Carvedilol 6.25 Mg Tab) 6.25 mg PO BIDM [facility] Stop: 08/31/24 16:59 Last Admin: 08/06/24 09:06 Dose: 6.25 mg Cyanocobalamin (Cyanocobalamin (B-12) 500 Mcg Tablet) 1,000 mcg PO DAILY [facility] Stop: 08/27/24 08:59 Last Admin: 08/06/24 09:07 Dose: 1,000 mcg Dextrose (Dextrose 50% 50 Ml Syringe) 25 - 50 ml IV UD PRN; Protocol PRN Reason: Hypoglycemia Protocol Stop: 08/26/24 13:34 Diclofenac Sodium (Diclofenac Sod 1% Gel 100 Gm Tube) 4 gm EXT Q6 PRN; Protocol PRN Reason: pain Stop: 08/26/24 14:59 Last Admin: 08/01/24 21:29 Dose: 4 gm Ferrous Sulfate (Ferrous Sulfate 325 Mg Tab) 325 mg PO Q2D [facility] Stop: 08/26/24 15:14 Last Admin: 08/04/24 13:38 Dose: 325 mg Finasteride (Finasteride 5 Mg Tab) 5 mg PO HS [facility] Stop: 08/26/24 20:59 Last Admin: 08/05/24 20:23 Dose: 5 mg Glucagon (Glucagon For Inj 1 Mg Vial) 1 mg SQ UD PRN; Protocol PRN Reason: Hypoglycemia Protocol Stop: 08/26/24 13:34 Glucose (Glucose 40% Gel 15 Gm Tube) 15 - 30 gm PO UD PRN; Protocol PRN Reason: Hypoglycemia Protocol Stop: 08/26/24 13:34 Glucose (Glucose 10 Tab/Tube) 4 - 8 tab PO UD PRN; Protocol PRN Reason: Hypoglycemia Protocol Stop: 08/26/24 13:34 Hydralazine HCl (Hydralazine Hcl 20 Mg/Ml Vial) 5 mg IV Q4H PRN PRN Reason: SBP > 180 Stop: 08/30/24 12:24 Last Admin: 08/05/24 21:54 Dose: 5 mg Insulin Aspart (Insulin Aspart Per Unit Charge) 0 units SC 0730 [facility] Stop: 09/02/24 07:49 Last Admin: 08/06/24 10:39 Dose: 11 units Insulin Aspart (Insulin Aspart Per Unit Charge) 0 units SC 1130,1630,2100 [facility] Stop: 09/02/24 11:29 Last Admin: 08/05/24 20:24 Dose: 5 units Insulin Glargine (Lantus Per Unit Charge) 0 units SQ HS [facility]; Protocol Stop: 08/26/24 20:59 Last Admin: 08/05/24 20:24 Dose: 50 units Isosorbide Mononitrate (Isosorbide Payne Extended Rel 30 Mg Tabcr) 30 mg PO QAM [facility] Stop: 08/27/24 08:59 Last Admin: 08/06/24 09:07 Dose: 30 mg Lidocaine (Lidocaine 5% 1 Patch) 1 patch TD QAM [facility] Stop: 08/26/24 12:46 Last Admin: 08/06/24 09:07 Dose: 1 patch Lorazepam (Lorazepam 0.5 Mg Tab) 0.5 mg PO BID PRN PRN Reason: Anxiety/Insomnia Stop: 09/03/24 20:09 Last Admin: 08/05/24 20:22 Dose: 0.5 mg Losartan Potassium (Losartan Potassium 50 Mg Tab) 50 mg PO BID [facility] Stop: 08/30/24 08:59 Last Admin: 07/31/24 08:19 Dose: 50 mg Magnesium Oxide (Magnesium Oxide 400 Mg Tab) 400 mg PO AMHS [facility] Stop: 08/26/24 20:59 Last Admin: 08/06/24 09:07 Dose: 400 mg Miscellaneous (Remove Lidoderm Patch) 1 each N/A DAILY@2100 [facility] Stop: 08/26/24 20:59 Last Admin: 08/05/24 20:15 Dose: Not Given Miscellaneous (Carbohydrates For Hypoglycemia ) 15 - 30 gm PO UD PRN PRN Reason: Hypoglycemia Protocol Stop: 08/26/24 13:34 Miscellaneous Information (Pharmacy Glycemic Mgmt Consult) 1 each N/A UD PRN PRN Reason: Consult Stop: 08/26/24 13:34 Nitroglycerin (Nitroglycerin Sl 0.4 Mg/Tab Tab) 0.4 mg SL DAILY PRN PRN Reason: chesst pain Stop: 08/26/24 14:59 Nystatin (Nystatin Powder 15gm Btl) 1 appln EXT BID [facility] Stop: 08/26/24 20:59 Last Admin: 08/06/24 09:08 Dose: 1 appln Olanzapine (Olanzapine 10 Mg/2.1 Ml Sdv) 2.5 mg IM Q4H PRN PRN Reason: Agitation Stop: 08/27/24 23:11 Last Admin: 08/01/24 13:05 Dose: 2.5 mg Pantoprazole Sodium (Pantoprazole 40 Mg Tab) 40 mg PO DAILY [facility] Stop: 08/27/24 08:59 Last Admin: 08/06/24 09:07 Dose: 40 mg Polyethylene Glycol (Polyethylene (Miralax) 17 Gm Pack) 17 gm PO DAILY [facility] Stop: 08/26/24 14:59 Last Admin: 08/06/24 09:06 Dose: 17 gm Senna/Docusate Sodium (Docusate Sodium/Senna 50/8.6mg Tab) 1 tab PO QAM [facility] Stop: 08/27/24 14:59 Last Admin: 08/06/24 09:06 Dose: 1 tab Sertraline HCl (Sertraline Hcl 50 Mg Tablet) 150 mg PO DAILY [facility] Stop: 08/27/24 08:59 Last Admin: 08/06/24 09:07 Dose: 150 mg Tamsulosin HCl (Tamsulosin Hcl 0.4 Mg Cap) 0.4 mg PO DAILY [facility] Stop: 08/27/24 08:59 Last Admin: 08/06/24 09:07 Dose: 0.4 mg Umeclidinium [place] (Umeclidinium [place] 62.5mcg/Blister 7 Puffs/Inhaler) 1 puffs INH QAM [facility] Stop: 08/27/24 08:59 Last Admin: 08/06/24 09:07 Dose: 1 puffs (1) Fall Encounter type: initial encounter Qualified Code(s): W19.XXXA - Unspecified fall, initial encounter (2) Fracture, ribs Encounter type: initial encounter Fracture type: closed Laterality: unspecified laterality Qualified Code(s): S22.49XA - Multiple fractures of ribs, unspecified side, initial encounter for closed fracture
[2024-08-06 20:05] VITALS: RESP 18
[2024-08-06] MEDS: DOCUSATE SODIUM/SENNA 50/8.6MG TAB PO SCH (21:26)
[2024-08-07 11:53] VITALS: PULSE 68; TEMP 97.5; O2SAT 93
[2024-08-07 12:18] VITALS: BP 153/87
--- NOTE | 2024-08-07 12:44 | Discharge Summary ---
Discharge Summary Date of Service August 07, 2024 Principal Dx & Hospital Course #1 = Principal Diagnosis (1) Fall: (2) Fracture, ribs: (3) Mood disorder: (4) CAD (coronary artery disease): (5) DM type 2 (diabetes mellitus, type 2): (6) Coronary artery disease, occlusive: (7) HTN (hypertension): (8) COPD with emphysema: Plan Mr. Pal is a 73-year-old male with history of sick sinus syndrome status post pacemaker placement in August 2023, CAD, CHF, diabetes type 2, hypertension, COPD, pulmonary fibrosis, other problems noted below admitted due to rib fractures 2/2 mechanical fall. Upon initial evaluation CT chest revealed acute left posterior rib fractures #5 through 7. He was admitted for pain control. He also complained of right knee pain. Patient was evaluated for right knee pain by ortho, who feels patient would be best suited for follow up with a joint revision specialist as OP. A brace was fitted in interim. In regards to his rib fractures he was treated conservatively with scheduled Tylenol and lidocaine patch. He also was initially placed on oxycodone however this resulted in constipation as well as mental status changes and this had since been discontinued. His hospital course was complicated with labile hypertension. He required adjustments of his medications including increasing his losartan to 50 mg twice daily, Coreg to 6.25 mg twice daily and adding amlodipine 2.5 mg at bedtime to his regimen. He developed a acute Enterococcus facialis UTI for which he completed antibiotic treatment through his hospital stay. He did have a mild DINESH with a peak creatinine of 1.79 which was felt to be secondary to poor oral intake. This was treated with IV fluids and his creatinine returned to baseline. He was seen and evaluated by physical therapy and Occupational Therapy. It was recommended he be discharged to subacute rehab. Initially [facility] was recommended; however, he was denied. Unfortunately due to lack of bed availability family opted to take patient home with home health services. On day of discharge she was in good spirits. He was hemodynamically stable. He was tolerating oral diet and his bowels are moving. He was ready to be discharged home. Also of note on day of discharge patient was notified that his remade of 3 days was currently a person under investigation for possible tuberculin disease. He therefore was placed under airborne precautions. Per infection control personnel the department health has been notified and will follow patient as an outpatient. Notes For Next Care Provider Please obtain CBC, BMP at discharge. He did have a mild DINESH while hospitalized due to poor intake. Monitor blood pressure as he had medication adjustments while hospitalized due to significant elevation in blood pressure. Medication Changes From Visit Coreg was increased to 6.25 mg twice daily Losartan was increased to 50 mg twice daily You were started on a new medication for your blood pressure, amlodipine, 2.5 mg at bedtime You may utilize over the counter tylenol, topical voltaren gel, or over the counter lidocaine patches to continue to treat your Left rib pain. Please avoid anti inflammatory medications like ibuprofen, aleve, motrin, advil or naproxen. Admission HPI Per Admitting Provider 73-year-old male with history of sick sinus syndrome status post pacemaker placement in August 2023, CAD, CHF, diabetes type 2, hypertension, COPD, pulmonary fibrosis, other problems noted below presenting with fall resulting to left posterior rib pain this morning. Patient obtained from patient and his at the bedside. At baseline, as per family, patient has had chronic balance issues after a intracranial hematoma many years ago. He uses a cane and/or a walker with ambulation, and receives physical therapy at home. This morning, around 1 AM, patient got up to go to the bathroom to urinate. He lost his balance, landing on his back hitting his left posterior chest on the toilet and this posterior head on the wall. Patient experienced severe left posterior rib pain after the fall. He denies any dizziness, loss of consciousness, nausea or vomiting, chest pain, shortness of breath, palpitations. His immediately went to check on him. She did not witness any seizures or loss of consciousness. She reports that he was having severe pain and did have a hard time getting up. At the ER, patient was doing relatively stable vital signs. CT chest revealing acute left posterior rib fractures #5-7. No pneumothorax. CT head, cervical spine CT, abdominal and pelvic CT no signs of acute injury On exam, patient seen sitting up in bed, not in distress, awake, alert, oriented x 3. Reports severe posterior left rib pain, worse with minimal movement. Denies headache, visual changes, nausea or vomiting, neck pain, chest pain, shortness of breath, abdominal pain. He does report increased right chronic knee pain after the fall. As per , patient also has been having progressive urinary incontinence to the point that he is urinating and wetting himself almost every 30 minutes. Patient denies dysuria, hematuria. Admission Exam Per Admitting Provider General- oriented x 3, not in distress, speaks in sentences with no effort or accessory muscle use Head- atraumatic Eyes- PERRL, EOMI, anicteric ENT- oropharynx clear Neck- supple, no JVD, no adenopathy, no thyromegaly; carotids +2/2, no bruits appreciated Lungs- clear to auscultation bilaterally, no rales/wheezes Posterior Rib- not assessed as patient was having severe pain but no visible injuries noted on the lateral chest wall Heart- normal rate, regular rhythm; no murmur, no gallop, no rub appreciated Abdomen- normal bowel sounds, nondistended, soft, nontender, no masses or hepa tosplenomegaly Extremities- no pretibial edema, no calf tenderness; peripheral pulses intact Neuro- alert, oriented x 3; CN 2-12 grossly intact; motor 5/5 bilaterally;sensation 100% on all extremities; no other gross focal neurologic deficits Skin- warm & dry Discharge Exam Gen: WD/WN, NAD, A&O x3, sitting up at bedside. HEENT: Normocephalic, atraumatic, conjunctivae moist, sclerae anicteric, mucous membranes moist. Lung: Clear to Auscultation bilaterally, no wheezes/rales/rhonchi, lidocaine patch in place Heart: Regular rate, regular rhythm, no murmurs, rubs, or gallops Abdomen: Soft, NT, ND +BS x 4 Extremities: No edema Skin: Warm, no rash, negative turgor. Updated Medication List Medication Instructions Recorded Confirmed Type insulin glargine 100 unit/mL 50 - 55 unit subcut HS 02/09/19 07/27/24 History subcutaneous solution (Lantus U-100 Insulin) isosorbide mononitrate 30 mg 30 mg PO QAM 02/09/19 07/27/24 History tablet,extended release 24 hr lorazepam 1 mg tablet 1 mg PO BID PRN anxiety/insomnia 02/09/19 07/27/24 History metformin 1,000 mg tablet 1,000 mg PO BIDM 02/09/19 07/27/24 History nitroglycerin 0.4 mg sublingual 0.4 mg sublingual DIRECTED PRN 02/09/19 07/27/24 History tablet chesst pain pantoprazole 40 mg tablet,delayed 40 mg PO DAILY 02/09/19 07/27/24 History release aspirin 81 mg tablet,delayed 81 mg PO QAM 03/08/19 07/27/24 History release mecobalamin (vitamin B12) 1,000 1,000 mcg PO DAILY 09/25/20 07/27/24 History mcg chewable tablet polyethylene glycol 3350 17 17 g PO DIRECTED 02/01/21 07/27/24 History gram/dose oral powder (Miralax) sertraline 100 mg tablet 150 mg PO DAILY 02/01/21 07/27/24 History ferrous sulfate 325 mg (65 mg 325 mg PO Q OTHER DAY 05/27/22 07/27/24 History iron) tablet magnesium oxide 400 mg PO AMHS 05/27/22 07/27/24 History diclofenac sodium 1 % topical gel 4 g EXT Q6 PRN pain #100 grams 05/28/22 07/27/24 Rx (Voltaren Arthritis Pain) albuterol sulfate 90 mcg/actuation 2 puff inhalation Q6 PRN 06/08/22 07/27/24 Rx aerosol inhaler (Ventolin HFA) SOB/Wheezing,cough #6.7 grams triamcinolone acetonide 0.1 % 1 applic topical BID PRN STOMACH 08/06/22 07/27/24 History topical cream RASH atorvastatin 20 mg tablet 20 mg PO DAILY 07/27/24 07/27/24 History glipizide 10 mg tablet 0 mg PO DAILY 07/27/24 07/27/24 History tamsulosin 0.4 mg capsule 0.4 mg PO DAILY 07/27/24 07/27/24 History umeclidinium 62.5 mcg/actuation 1 inh inhalation QAM 07/27/24 07/27/24 History blister powder for inhalation (Incruse Ellipta) amlodipine 5 mg tablet (Norvasc) 2.5 mg (1/2 x 5 mg) PO HS #30 tabs 08/07/24 Rx carvedilol 6.25 mg tablet 6.25 mg PO BIDM #60 tabs 08/07/24 Rx losartan 50 mg tablet 50 mg PO BID #60 tabs 08/07/24 Rx Hospital Stay Data Consultations 07/27/24 12:15 ED Decision to Admit Stat 07/27/24 13:29 Consult Orthopedic Surgery Routine Diagnostic Imagining Performed Chest X-Ray 07/27/24 10:21 XR chest 1V portable HISTORY: 73 years-old Male Trauma acute chest trauma COMPARISON: 08/24/2022 TECHNIQUE: AP view the chest FINDINGS: Cardiac silhouette is enlarged. Dual lead left subclavian pacer. Pulmonary vascular congestion with chronic interstitial coarsening. No pneumothorax or large pleural effusion. Degenerative changes of the shoulders and spine. IMPRESSION: 1. Cardiomegaly with pulmonary vascular congestion. 2. Chronic interstitial lung disease. ACT 112: Negative or not required by law. The above report was generated using voice recognition software. It may contain grammatical, syntax or spelling errors. Electronically signed by: Jacob Cleveland M.D. 07/27/2024 11:10 AM Abdomen/Pelvis CT 07/27/24 10:22 CT abd pelvis IV con only CLINICAL HISTORY: Trauma TECHNIQUE: Helical axial images of the abdomen and pelvis were obtained and di splayed. Automated dose lowering techniques and/or adjustment according to patient size were utilized for this exam. This exam was performed with intravenous contrast. COMPARISON: Comparison is made to CT abdomen pelvis 06/05/2021 FINDINGS: Lower chest: For findings above the diaphragm, please see CT chest performed same day. Liver: Hepatic steatosis is noted. Gallbladder and biliary tree: No calcified gallstones. Normal caliber wall. No intra- or extrahepatic biliary ductal dilation. Pancreas: Unremarkable, no focal lesions. Spleen: Unremarkable. Adrenals: Unremarkable. Kidneys and ureters: Left renal cyst is seen. Bladder: Diffuse homogeneous wall thickening is seen. Reproductive organs: Prostatomegaly is seen. Bowel: Diverticulosis is seen without diverticulitis. The appendix is normal. Lymph nodes Retroperitoneal: Unremarkable. Pelvic: Unremarkable. Mesenteric: Unremarkable. Peritoneum: Normal. Vessels: Atherosclerotic calcifications are seen. Abdominal wall: Postsurgical changes are seen in the bilateral inguinal canals. Bones: Degenerative changes in the visualized spine. Subacute healing left anterior rib fractures are seen at the ninth and eighth ribs. IMPRESSION: 1. No acute abnormalities are seen. Subacute left rib fractures. Please see CT chest performed same day for rib fractures. 2. Hepatic steatosis. 3. Diverticulosis without diverticulitis. ACT 112: Negative or not required by law. Electronically signed by: Luther Marcial M.D. 07/27/2024 11:[address] 07/27/24 10:22 CT cervical spine wo con CT DOSE: 3497.5 mGy.cm CLINICAL HISTORY: 73 years-old Male with Trauma. Acute chest and neck pain status post fall COMPARISON: MRI cervical spine 10/21/2023, MRI cervical spine 10/21/2023. TECHNIQUE: Multiple axial CT images of the cervical spine were obtained without contrast. A dose lowering technique was utilized adhering to the principles of ALARA. FINDINGS: Straightening of the normal cervical lordosis with mild to moderate degenerative changes redemonstrated. No acute fracture, subluxation suspicious bone lesions are identified. Suboptimal evaluation of the central canal and neural foramen by CT technique. Postoperative changes of suboccipital craniectomy redemonstrated. The cervical soft tissues appear unremarkable. Atherosclerosis of the carotid bulbs. Cerebellar encephalomalacia again noted. Head CT dictated separately. The visualized lung apices appear clear. IMPRESSION: No acute cervical spine fracture or subluxation. ACT 112: Negative or not required by law. The above report was generated using voice recognition software. It may contain grammatical, syntax or spelling errors. Electronically signed by: Jacob Cleveland M.D. 07/27/2024 11:[address] 07/27/24 10:22 CT chest diagnostic w con CLINICAL HISTORY: Trauma TECHNIQUE: Multidetector row helical CT of the chest was performed with intravenous contrast. Coronal and sagittal reformations were obtained. Automated dose lowering techniques and/or adjustment according to patient size were utilized for this exam. Comparison: Comparison is made to CT chest August 06, 2022 FINDINGS: Lungs and pleura: Peripheral interstitial thickening is seen with some paraseptal emphysema. Heart and pericardium: Aortic valvular calcifications are seen. Vessels: Moderate atherosclerotic changes in the aorta and coronary arteries. Mediastinum and sid: Subcentimeter lymph nodes are seen. Chest wall and lower neck: Small thyroid nodules are noted which do not require follow-up by ACR criteria. Abdomen: Unremarkable. Bones: There are acute fractures of the posterolateral fifth, sixth and seventh ribs. Possible nondisplaced fourth rib fracture as well. Degenerative changes in the spine. Congenital foramen of the sternum is noted. IMPRESSION: 1. Acute fractures of the posterior lateral fifth, sixth, and seventh ribs. No pneumothorax is seen. 2. Interstitial lung disease, similar to prior exam. ACT 112: Negative or not required by law. Electronically signed by: Luther Marcial M.D. 07/27/2024 11:[address] 07/27/24 10:22 CT head/brain wo con CLINICAL HISTORY: trauma Technique: Contiguous axial CT images of the head were acquired from the base of the skull to the vertex without intravenous contrast administration. Images were viewed in brain, subdural and bone windows. Automated dose lowering techniques and/or adjustment according to patient size were utilized for this exam. Comparison: Comparison is made to the head on 623 Findings: Areas of decreased attenuation are present in the periventricular and subcortical white matter bilaterally consistent with small vessel ischemic disease. Generalized cerebral atrophy with commensurate enlargement of the ventricles, sulci, and cisterns is also present. There is no acute intracranial hemorrhage or evidence of acute territorial infarction. No shift of the midline structures, mass effect, or extra-axial abnormalities are shown. Atherosclerotic calcifications are present in the intracranial segments of the internal carotid arteries. Imaged portions of the paranasal sinuses and mastoid air cells are clear. The orbits appear normal. Old posterior calvarial defect is seen. Impression: No acute intracranial hemorrhage, skull fractures, or scalp swelling. ACT 112: Negative or not required by law. Electronically signed by: Luther Marcial M.D. 07/27/2024 11:45 AM Knee X-Ray 07/27/24 13:29 XR knee RT 1 or 2V routine CLINICAL HISTORY: severe pain, s/p fall TECHNIQUE: 2 views of the right knee were obtained. Comparison: Comparison is made to knee radiographs 12/30/2017 FINDINGS: There is no evidence of an acute fracture. Patient is status post total knee arthroplasty. No perihardware lucency or hardware fracture is seen. No joint effusion is seen. Vascular calcifications are noted. IMPRESSION: No evidence of acute osseous injury. ACT 112: Negative or not required by law. Electronically signed by: Luther Marcial M.D. 07/27/2024 2:27 PM Pending Results Patient Have Any Pending Studies at Discharge: No Discharge Instructions Given to Patient (Per Discharging Provider) Mr. Pal Gopal were admitted on 07/27 with rib fractures secondary to mechanical fall that you experienced. You were evaluated for right knee pain by orthopedics who felt that you would be best suited for follow-up with a joint revision specialist as an outpatient. Upon arrival a head CT and chest CT were obtained. Head CT without any acute injuries and your chest CT revealed acute left posterior rib fractures #5-7. You were treated conservatively with pain patches and Tylenol and opioid medications as needed. During the hospitalization you did develop constipation secondary to opioids and underwent an aggressive bowel regimen with enema and resolution of constipation. Your blood pressure was elevated throughout your hospitalization intermittently in the setting of pain and your medications were adjusted. Your coreg and losartan were increased. You were also started on a medication called amlodipine You were diagnosed with acute cystitis ( bladder infection ) and started on antibiotics which was completed on August 05. You continued to participate in PT/OT throughout your stay and your symptoms significantly improved. It was recommended you go to rehab; however due to no availability in the near future it wa felt safe for you to go home with family and home health services. MEDICATION CHANGES: Coreg was increased to 6.25 mg twice daily Losartan was increased to 50 mg twice daily You were started on a new medication for your blood pressure, amlodipine, 2.5 mg at bedtime You may utilize over the counter tylenol, topical voltaren gel, or over the counter lidocaine patches to continue to treat your Left rib pain. Please avoid anti inflammatory medications like ibuprofen, aleve, motrin, advil or naproxen. RECOMMENDATIONS FOR FOLLOW-UP: Please follow up with your Primary Care provider as scheduled. Monitor your blood pressure twice daily when you get discharged home. Please keep a log of this and take it with your to your primary care provider to determine if you need any further adjustments in your blood pressure medications. Please stay well hydrated with water. It is recommended you abstain from Tobacco/nicotine products. It was discovered that your roommate during your hospital stay is currently under investigation for a possible tuberculosis illness. Although this is very unlikely, the department of health has been contacted and they will be in contact with you to discuss further follow up if necessary. It is recommended you continue to use your incentive spirometer device to help improve aeration of your lungs while you recover from multiple rib fractures. OTHER INSTRUCTIONS: Seek medical attention if you have: * temperature above 101 * chest pain or trouble breathing * abdominal pain, nausea, vomiting * diarrhea, dark stools or bloody stools * any unanswered questions or concerns Call 911 if symptoms are severe. Please take good care of yourself. It has been a pleasure taking care of you. Please take care of yourself. If you have any questions regarding your recent hospitalization please contact [facility] and request Favio Kauffman @ [phone]. Total Time Total Time Spent Total Time Spent (In Minutes): 45 minutes Supervising Physician Co-Signing Physician Notes Attending addendum: The patient was examined and seen in the medical floor He has been stable and denies any significant symptoms He has a physical therapy and did very well On examination Sitting on a chair without any difficulties Remained hemodynamically stable Systemic examinations unremarkable His labs and medications reviewed Discussed with the family members and casework manager He was discharged home with home PT Agree with assessment plan as outlined above by Danita Johnson PA-C and take the full responsibility of care in the hospital Dr Jude Lopez
== END 2024-08-07 13:32 | disposition home health service (06) | DRG 184 ==
LOC: ED 10:13 → SUATTDRO 12:28 → EDINP 12:28 → 2N 15:37 → 3W 08-03 06:23 → 2N 08-03 09:08